=== PATIENT | male | born 1955 | race African-American/Black ===

== ENCOUNTER 2016-12-17 19:50 | Emergency (ER) | payer OTHER ==
[2016-12-17] MEDS ORDERED: SODIUM CHLORIDE 0.9% 1,000 ML IV STA (20:15)
--- NOTE | 2016-12-17 20:43 | ED ---
Abdominal Pain HPI - General Chief Complaint: Abdominal Pain Stated Complaint: sent by PCP CT on file Time Seen by Provider: 12/17/16 20:15 Source: patient Mode of arrival: ambulatory Limitations: no limitations - History of Present Illness Initial Comments: 61-year-old male patient presents to emergency department today for complaints of left flank pain. Patient was seen at the [facility] earlier today and was sent here for a computed tomography scan due to his symptoms. Patient states that the left flank pain has been present for a week. He states that the pain occasionally radiates down into his lower back and leg. His friends the pain as a dull aching and occasionally sharp pain. Patient states the area is tender. Patient denies any fever, chills, dysuria, hematuria, urinary urgency or frequency. He states he occasionally has a slow stream. He denies any abdominal pain, nausea, vomiting, constipation, or diarrhea. Denies any dark, bloody, or black stools. - Related Data Home Medications Medication Instructions Recorded Confirmed Hbobipojfy-RJS-Sfluhem-Codeine 1 - 2 tab PO Q4H PRN 12/05/14 12/17/16 [Fiorinal w/Cod 86-951-76-30MG] Cholecalciferol [Vitamin D3] 1,000 unit PO HS 12/05/14 12/17/16 Metoprolol Tartrate [Lopressor] 75 mg PO BID 12/05/14 12/17/16 Pentoxifylline [TRENtal] 400 mg PO AC-TID 12/05/14 12/17/16 Quinapril HCl [Accupril] 20 mg PO BID 12/05/14 12/17/16 Zolpidem [Ambien] 10 mg PO HS PRN 12/05/14 12/17/16 Aspirin 81 mg PO HS 03/06/15 12/17/16 Atorvastatin [Lipitor] 20 mg PO HS 03/06/15 12/17/16 Clopidogrel [Plavix] 75 mg PO HS 03/06/15 12/17/16 Escitalopram [Lexapro] 10 mg PO HS 03/06/15 12/17/16 HYDROcodone/APAP 10-325MG [[place] 1 tab PO BID PRN 03/06/15 12/17/16 10-325] Isosorbide Dinitrate 30 mg PO HS 03/06/15 12/17/16 Lisinopril 40 mg PO HS 03/06/15 12/17/16 Melatonin 5 mg PO HS 03/06/15 12/17/16 amLODIPine [Norvasc] 10 mg PO HS 03/06/15 12/17/16 Previous Rx's Medication Instructions Recorded hydrALAZINE HCL [Apresoline] 50 mg PO QID #120 tab 12/08/14 Polyethylene Glycol 3350 [Miralax] 17 gm PO Q72H PRN #1 packet 03/06/15 Allergies Allergy/AdvReac Type Severity Reaction Status Date / Time No Known Allergies Allergy Verified 12/17/16 19:59 Review of Systems ROS Statement: Those systems with pertinent positive or pertinent negative responses have been documented in the HPI. ROS Other: All systems not noted in ROS Statement are negative. Past Medical History Past Medical History: Diabetes Mellitus, Hyperlipidemia, Hypertension, Myocardial Infarction ([place]) Additional Past Medical History / Comment(s): Peripheral vascular disease, renal artery stenosis with previous renal artery stenting, insomnia, headache, coronary artery disease, hyperlipidemia, hypertension, NEUROPATHY Last Myocardial Infarction Date:: 1993 History of Any Multi-Drug Resistant Organisms: None Reported Past Surgical History: Coronary Bypass/CABG, Heart Catheterization Additional Past Surgical History / Comment(s): Previous PTCA of the lower extremity with stenting,LT ILIAC ARTERY STENT 11-12-13. bilateral renal artery stenting, balloon angioplasty of coronary artery, open heart surgery 02/2015 Past Psychological History: Depression Smoking Status: Former smoker Past Alcohol Use History: None Reported Additional Past Alcohol Use History / Comment(s): QUIT SMOKING IN 1996 SMOKED 1 PPD Past Drug Use History: Marijuana - Past Family History Father Family Medical History: CVA/TIA, Myocardial Infarction ([place]) Additional Family Medical History / Comment(s): ANEURYSM Mother Family Medical History: CVA/TIA, Myocardial Infarction ([place]) Sister(s) Family Medical History: Cancer Additional Family Medical History / Comment(s): AT AGE 56 FROM [place] AND A SISTER AGE 55 ANEURYSM, AND SEVERAL SISTERS AND BROTHERS HAD CARDIAC HX(MIS) General Exam Limitations: no limitations General appearance: alert, in no apparent distress Head exam: Present: atraumatic, normocephalic, normal inspection Eye exam: Present: normal appearance, PERRL, EOMI. Absent: scleral icterus, conjunctival injection, periorbital swelling ENT exam: Present: normal exam, mucous membranes moist Neck exam: Present: normal inspection. Absent: tenderness, meningismus, lymphadenopathy Respiratory exam: Present: normal lung sounds bilaterally. Absent: respiratory distress, wheezes, rales, rhonchi, stridor Cardiovascular Exam: Present: regular rate, normal rhythm, normal heart sounds. Absent: systolic murmur, diastolic murmur, rubs, gallop, clicks GI/Abdominal exam: Present: soft, normal bowel sounds. Absent: distended, tenderness, guarding, rebound, rigid Back exam: Present: normal inspection, CVA tenderness (L). Absent: CVA tenderness (R) Neurological exam: Present: alert, oriented X3, CN II-XII intact Psychiatric exam: Present: normal affect, normal mood Skin exam: Present: warm, dry, intact, normal color. Absent: rash Course Vital Signs 12/17/16 12/17/16 19:57 21:58 Temperature 98.2 F 97.9 F Pulse Rate 58 L 60 Respiratory 20 18 Rate Blood Pressure 190/83 145/74 O2 Sat by Pulse 97 98 Oximetry Medical Decision Making - Medical Decision Making 61-year-old male presented emergency from for left flank pain after CT. Patient has some area of edematous changes though there is no clear evidence of infection. Patient will follow-up with the urologist. Patient states he has had a stent in the past but not sure what kidney. Patient kidney function is baseline for him. Patient will be discharged at this time with follow-up with Dr. Noguera. Patient's pain is better after pain medication. Case discussed with Dr. Sevilla. - Lab Data Result diagrams: 12/17/16 21:48 12/17/16 21:48 Lab Results 12/17/16 12/17/16 12/17/16 Range/Units 21:06 21:48 21:48 WBC 5.8 (3.8-10.6) k/uL RBC 4.85 (4.30-5.90) m/uL Hgb 13.9 (13.0-17.5) gm/dL Hct 43.0 (39.0-53.0) % MCV 88.8 (80.0-100.0) fL MCH 28.7 (25.0-35.0) pg MCHC 32.3 (31.0-37.0) g/dL RDW 15.7 H (11.5-15.5) % Plt Count 219 (150-450) k/uL Neutrophils % 51 % Lymphocytes % 37 % Monocytes % 6 % Eosinophils % 1 % Basophils % 2 % Neutrophils # 3.0 (1.3-7.7) k/uL Lymphocytes # 2.2 (1.0-4.8) k/uL Monocytes # 0.3 (0-1.0) k/uL Eosinophils # 0.1 (0-0.7) k/uL Basophils # 0.1 (0-0.2) k/uL Sodium 138 (137-145) mmol/L Potassium 4.3 (3.5-5.1) mmol/L Chloride 105 (98-107) mmol/L Carbon Dioxide 22 (22-30) mmol/L Anion Gap 11 mmol/L BUN 15 (9-20) mg/dL Creatinine 1.27 H (0.66-1.25) mg/dL Est GFR (MDRD) Af Amer >60 (>60 ml/min/1.73 sqM) Est GFR (MDRD) Non-Af 57 (>60 ml/min/1.73 sqM) Glucose 101 H (74-99) mg/dL Plasma Lactic Acid Mike (0.7-2.0) mmol/L Calcium 9.6 (8.4-10.2) mg/dL Total Bilirubin 0.6 (0.2-1.3) mg/dL AST 20 (17-59) U/L ALT 19 L (21-72) U/L Alkaline Phosphatase 96 (38-126) U/L Total Protein 8.3 H (6.3-8.2) g/dL Albumin 4.5 (3.5-5.0) g/dL Amylase 121 H (30-110) U/L Lipase 281 (23-300) U/L Urine Color Light Yellow Urine Appearance Clear (Clear) Urine pH 6.0 (5.0-8.0) Ur Specific [place] 1.027 (1.001-1.035) Urine Protein Negative (Negative) Urine Glucose (UA) Negative (Negative) Urine Ketones Negative (Negative) Urine Blood Negative (Negative) Urine Nitrite Negative (Negative) Urine Bilirubin Negative (Negative) Urine Urobilinogen <2.0 (<2.0) mg/dL Ur Leukocyte Esterase Negative (Negative) 12/17/16 Range/Units 21:48 WBC (3.8-10.6) k/uL RBC (4.30-5.90) m/uL Hgb (13.0-17.5) gm/dL Hct (39.0-53.0) % MCV (80.0-100.0) fL MCH (25.0-35.0) pg MCHC (31.0-37.0) g/dL RDW (11.5-15.5) % Plt Count (150-450) k/uL Neutrophils % % Lymphocytes % % Monocytes % % Eosinophils % % Basophils % % Neutrophils # (1.3-7.7) k/uL Lymphocytes # (1.0-4.8) k/uL Monocytes # (0-1.0) k/uL Eosinophils # (0-0.7) k/uL Basophils # (0-0.2) k/uL Sodium (137-145) mmol/L Potassium (3.5-5.1) mmol/L Chloride (98-107) mmol/L Carbon Dioxide (22-30) mmol/L Anion Gap mmol/L BUN (9-20) mg/dL Creatinine (0.66-1.25) mg/dL Est GFR (MDRD) Af Amer (>60 ml/min/1.73 sqM) Est GFR (MDRD) Non-Af (>60 ml/min/1.73 sqM) Glucose (74-99) mg/dL Plasma Lactic Acid Mike 1.5 (0.7-2.0) mmol/L Calcium (8.4-10.2) mg/dL Total Bilirubin (0.2-1.3) mg/dL AST (17-59) U/L ALT (21-72) U/L Alkaline Phosphatase (38-126) U/L Total Protein (6.3-8.2) g/dL Albumin (3.5-5.0) g/dL Amylase (30-110) U/L Lipase (23-300) U/L Urine Color Urine Appearance (Clear) Urine pH (5.0-8.0) Ur Specific [place] (1.001-1.035) Urine Protein (Negative) Urine Glucose (UA) (Negative) Urine Ketones (Negative) Urine Blood (Negative) Urine Nitrite (Negative) Urine Bilirubin (Negative) Urine Urobilinogen (<2.0) mg/dL Ur Leukocyte Esterase (Negative) Disposition Clinical Impression: Flank pain Disposition: HOME SELF-CARE Condition: Stable Instructions: Flank Pain (ED) Additional Instructions: Please return to the Emergency Department if symptoms worsen or any other concerns. Referrals: Nav Lopez DO [Primary Care Provider] - 1-2 days Ramesh Krueger MD [STAFF PHYSICIAN] - 1-2 days Time of Disposition: 22:55
[2016-12-17 21:25] LABS: Appearance,Urine Clear (Clear); Bilirubin,Urine Negative (Negative); Glucose,Urine (UA) Negative (Negative); Ketones,Urine Negative (Negative); Leukocyte Esterase,Urine Negative (Negative); Nitrite,Urine Negative (Negative); Protein,Urine Negative (Negative); Specific Gravity,Urine 1.027 (1.001-1.035); UA Billing (MACRO vs. MICRO) CHEM; Urobilinogen,Urine <2.0 mg/dL (<2.0)
[2016-12-17 21:59] VITALS: RESP 18
[2016-12-17 22:02] LABS: Basophils # (A) 0.1 k/uL (0-0.2); Basophils % (A) 2 %; CH 28.2; Eosinophils # (A) 0.1 k/uL (0-0.7); Eosinophils % (A) 1 %; HDW 2.64; HGB 13.9 gm/dL (13.0-17.5); Luc # (Auto) 0.21; Luc % (Auto) 4; Lymphocytes # (A) 2.2 k/uL (1.0-4.8); Lymphocytes % (A) 37 %; MCH 28.7 pg (25.0-35.0); MCHC 32.3 g/dL (31.0-37.0); MCV 88.8 fL (80.0-100.0); Mean Platelet Volume 7.5; Monocytes # (A) 0.3 k/uL (0-1.0); Monocytes % (A) 6 %; Neutrophils % (A) 51 %; RBC 4.85 m/uL (4.30-5.90); RDW 15.7 % (11.5-15.5); WBC 5.8 k/uL (3.8-10.6); WBC (Perox) 5.64
[2016-12-17 22:15] LABS: ALT 19 U/L (21-72); AST 20 U/L (17-59); Alkaline Phosphatase 96 U/L (38-126); Amylase 121 U/L (30-110); Anion Gap 11 mmol/L; Blood Urea Nitrogen 15 mg/dL (9-20); Calcium 9.6 mg/dL (8.4-10.2); Carbon Dioxide 22 mmol/L (22-30); Chloride 105 mmol/L (98-107); Glucose 101 mg/dL (74-99); Non-African American GFR(MDRD) 57 (>60 ml/min/1.73 sqM); Potassium 4.3 mmol/L (3.5-5.1); Sodium 138 mmol/L (137-145); Total Bilirubin 0.6 mg/dL (0.2-1.3); Total Protein 8.3 g/dL (6.3-8.2)
[2016-12-17] MEDS ORDERED: HYDROmorphone 1 MG/ML 1 ML SYRINGE IVP STA (22:33)
[2016-12-17] MEDS ORDERED: ONDANSETRON 4 MG/2 ML VIAL IVP STA (22:33)
[2016-12-17 23:11] VITALS: BP 165/67; PULSE 65; TEMP 98
== END 2016-12-17 23:11 | disposition home or self-care (01) ==
LOC: EC 19:50
DX: R10.9 Unspecified abdominal pain (principal); M54.5 Low back pain; E78.5 Hyperlipidemia, unspecified; I10 Essential (primary) hypertension; I25.2 Old myocardial infarction; I25.10 Atherosclerotic heart disease of native coronary artery without angina pectoris; F41.9 Anxiety disorder, unspecified; Z87.891 Personal history of nicotine dependence; Z79.82 Long term (current) use of aspirin; Z79.01 Long term (current) use of anticoagulants; Z79.899 Other long term (current) drug therapy
CPT/HCPCS: 36415; 80053; 82150; 83605; 83690; 85025; 81003; 87040; 87086; 99284; 96374; 96375; 96361 ×2; J2405; J1170

== ENCOUNTER → 2016-12-17 | Outpatient (CLI) | payer OTHER ==
[2016-12-17 17:39] LABS: Blood Urea Nitrogen 16 mg/dL (9-20); Non-African American GFR(MDRD) 56 (>60 ml/min/1.73 sqM)
--- NOTE | 2016-12-17 19:44 | CT ---
EXAMINATION TYPE: CT abdomen pelvis wo/w con DATE OF EXAM: 12/17/2016 6:57 PM COMPARISON: December 05, 2014 CT HISTORY: Left flank pain x [address] DLP: 2551.00 mGycm. Automated exposure control for dose reduction was used. TECHNIQUE: Helical acquisition of images was performed from the lung bases through the pelvis. CONTRAST: Performed with Oral Contrast and without and with IV Contrast, patient injected with 80 mL of Visipaque 320. FINDINGS: LUNG BASES: No significant abnormality is appreciated. LIVER/GB: No significant abnormality is appreciated. PANCREAS: No significant abnormality is seen. SPLEEN: No significant abnormality is seen. ADRENALS: No significant abnormality is seen. KIDNEYS AND URETERS AND BLADDER: There is a subtle reticulation pattern throughout the left perirenal space with associated mild thickening and indistinctness of the renal fascia including the lateral c onal fascia on the left. There are no focal left kidney findings. There is no left-sided hydronephros is. There is no right-sided hydronephrosis. The right and left ureters are negative. The urinary bladder is negative for acute findings. RETROPERITONEAL ADENOPATHY: None visualized REPRODUCTIVE ORGANS: No significant abnormality is seen PELVIC ADENOPATHY: None visualized. OSSEOUS STRUCTURES: No significant abnormality is seen. BOWEL: No significant abnormality is seen. OTHER: There is diffuse atherosclerotic ossification throughout all visualized arterial anatomy. IMPRESSION: NEGATIVE FOR OBSTRUCTIVE UROPATHY. HOWEVER, MILD NONSPECIFIC LEFT PERIRENAL EDEMATOUS CHANGES SUGGEST S THE CLINICAL DIAGNOSIS OF PYELONEPHRITIS.
== END ==
LOC: RADCTMAIN 16:58
PROVIDERS: ATTEND Physician Assistant Medical
DX: R10.84 Generalized abdominal pain (principal); R60.0 Localized edema
CPT/HCPCS: 82565; 84520; 74178; 36415; Q9967

== ENCOUNTER 2017-03-17 11:42 | Observation (INO) | payer OTHER, MEDICARE ==
[2017-03-17 13:14] LABS: Basophils # (A) 0.1 k/uL (0-0.2); Basophils % (A) 2 %; CH 28.2; CHCM 33.1; Eosinophils # (A) 0.2 k/uL (0-0.7); Eosinophils % (A) 4 %; HCT 38.4 % (39.0-53.0); HDW 2.79; HGB 13.3 gm/dL (13.0-17.5); Luc # (Auto) 0.16; Luc % (Auto) 3; Lymphocytes # (A) 2.2 k/uL (1.0-4.8); Lymphocytes % (A) 41 %; MCH 29.7 pg (25.0-35.0); MCHC 34.6 g/dL (31.0-37.0); MCV 85.8 fL (80.0-100.0); Mean Platelet Volume 7.8; Monocytes # (A) 0.3 k/uL (0-1.0); Monocytes % (A) 5 %; Neutrophils # (A) 2.5 k/uL (1.3-7.7); Neutrophils % (A) 46 %; RBC 4.48 m/uL (4.30-5.90); RDW 15.6 % (11.5-15.5); WBC 5.4 k/uL (3.8-10.6)
[2017-03-17 13:15] LABS: ALT 15 U/L (21-72); AST 19 U/L (17-59); Alkaline Phosphatase 72 U/L (38-126); Anion Gap 8 mmol/L; Blood Urea Nitrogen 22 mg/dL (9-20); Calcium 9.2 mg/dL (8.4-10.2); Carbon Dioxide 27 mmol/L (22-30); Chloride 107 mmol/L (98-107); Glucose 84 mg/dL (74-99); Non-African American GFR(MDRD) 53 (>60 ml/min/1.73 sqM); Sodium 142 mmol/L (137-145); Total Bilirubin 0.4 mg/dL (0.2-1.3); Total Protein 7.5 g/dL (6.3-8.2)
[2017-03-17 13:21] LABS: Potassium 4.3 mmol/L (3.5-5.1)
[2017-03-17 13:24] LABS: INR 1.1 (<1.1); Prothrombin Time 10.7 sec (9.0-12.0)
--- NOTE | 2017-03-17 13:26 | XR ---
EXAMINATION TYPE: XR chest 2V DATE OF EXAM: 03/17/2017 COMPARISON: Chest x-ray March 08, 2015 HISTORY: Chest pain and pain in extremities. TECHNIQUE: Frontal and lateral views of the chest are obtained. FINDINGS: Sternal wires and mediastinal clips are redemonstrated. There is redemonstration of elevate d and eventrated anterior limb right hemidiaphragm. There is no focal air space opacity, pleural eff usion, or pneumothorax seen. The cardiac silhouette size is upper limits of normal with atherosclero tic thoracic aorta. The osseous structures are intact. IMPRESSION: No acute process.
[2017-03-17 13:33] LABS: Partial Thromboplastin Time 20.9 sec (22.0-30.0)
[2017-03-17] MEDS ORDERED: HYDROcodone/APAP 5-325MG 1 EACH TAB PO STA ×2 (13:42→16:56)
[2017-03-17 13:53] LABS: Troponin I 0.03 ng/mL (0.000-0.034)
[2017-03-17] MEDS ORDERED: ASPIRIN 325 MG TAB PO STA (16:49)
[2017-03-17] MEDS ORDERED: RX INFO: IV CONTRAST WAS GIVEN 1 EACH MISC MISCELLANE PRN (16:50)
[2017-03-17] MEDS ORDERED: SODIUM CHLORIDE 0.9% 1,000 ML IV ONE (16:51)
[2017-03-17] MEDS ORDERED: hydrALAZINE HCL 20 MG/ML 1 ML VIAL IVP STA (16:52)
--- NOTE | 2017-03-17 19:32 | CT ---
EXAMINATION TYPE: CT angio thoracic/abd aorta and with 3-D Reconstruction rendering at an independent workstation DATE OF EXAM: 03/17/2017 COMPARISON: December 05, 2014 CT HISTORY: Chest Pain CT DLP: 1132 mGycm. Automated Exposure Control for Dose Reduction was Utilized. CONTRAST: CT scan of the thorax, abdomen and pelvis is performed; patient injected with 80 mL of Visi paque 320. Multiple three-dimensional volume rendered rectal abdominal pelvic aortic images were obta ined and reviewed. FINDINGS: LUNGS: The lungs are grossly clear, there is no concerning parenchymal mass or nodule identified. T here is no pleural effusion or pneumothorax seen. The tracheobronchial tree is patent. MEDIASTINUM: The thoracic aorta is unremarkable on the precontrast and postcontrast sequences, other than stable appearing advanced atherosclerotic changes including intimal calcifications and minimal t ortuosity. 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 M ild cardiomegaly noted. Pericardial spaces negative. Post coronary arterial bypass surgical changes a ppreciated. [place] coronary calcifications are prominent. Bypass grafts cannot be well-visualized wit h the motion artifact. There are no greater than 1 cm hilar or mediastinal lymph nodes. The pulmonary arterial tree is widely patent. LIVER/GB: No significant abnormality is appreciated. PANCREAS: No significant abnormality is seen. SPLEEN: No significant abnormality is seen. ADRENALS: No significant abnormality is seen. KIDNEYS: No acute abnormality is seen, but the left kidney shows generalized atrophy and is nearly 1/ 2 the volume of the right kidney. BOWEL: Diverticulosis noted, but no acute findings. GENITAL ORGANS: No gross abnormality seen. LYMPH NODES: No greater than 1cm abdominal or pelvic lymph nodes are appreciated. OSSEOUS STRUCTURES: No significant abnormality is seen. OTHER: Widespread advanced atherosclerotic changes seen throughout the arterial anatomy of the abdome n and pelvis. No acute findings. IMPRESSION: NO ACUTE PROCESS, CHEST ABDOMEN PELVIS CTA WITHOUT AND WITH CONTRAST AND WITH 3-D RECONSTRUCTION ANTWON MARTINS
[2017-03-17] MEDS ORDERED: MORPHINE SULFATE 4 MG/ML SYRINGE IV PRN (19:34)
[2017-03-17] MEDS ORDERED: HYDROcodone/APAP 5-325MG 1 EACH TAB PO PRN (19:34)
[2017-03-17] MEDS ORDERED: NALOXONE 0.4 MG/ML 1 ML VIAL IV PRN (19:34)
[2017-03-17] MEDS ORDERED: ONDANSETRON 4 MG/2 ML VIAL IVP PRN (19:34)
[2017-03-17] MEDS ORDERED: DEXTROSE 5%-0.45% NACL 1,000 ML IV SCH (19:45)
--- NOTE | 2017-03-17 19:48 | ED ---
Chest Pain HPI - General Chief Complaint: Chest Pain Stated Complaint: chest pain/arms and legs Time Seen by Provider: 03/17/17 12:09 Source: patient, RN notes reviewed Mode of arrival: ambulatory Limitations: no limitations - History of Present Illness Initial Comments: 61-year-old male presenting with chief complaint of chest pain. Patient describes the pain is heavy in nature. Pain is currently resolved. It was nonradiating. Not associated with nausea or diaphoresis. Patient does have past medical history of CAD and peripheral vascular disease. Coronary artery bypass graft in February 2015. Patient has history of diabetes. He normally follows at the [facility]. He thinks his last stress test was approximately one year ago. He is uncertain of the results of this test. He denies fever, denies cough. Denies nausea vomiting or diarrhea. - Related Data Home Medications Medication Instructions Recorded Confirmed Uwbumczdfh-SYB-Pqjzpov-Codeine 1 - 2 tab PO Q4H PRN 12/05/14 03/17/17 [Fiorinal w/Cod 06-768-62-30MG] Cholecalciferol [Vitamin D3] 1,000 unit PO HS 12/05/14 03/17/17 Pentoxifylline [TRENtal] 400 mg PO TID 12/05/14 03/17/17 Aspirin 81 mg PO HS 03/06/15 03/17/17 Clopidogrel [Plavix] 75 mg PO HS 03/06/15 03/17/17 Docusate [Colace] 100 mg PO BID PRN 03/17/17 03/17/17 Ferrous Sulfate [Iron] 325 mg PO DAILY 03/17/17 03/17/17 Gabapentin [Neurontin] 300 mg PO TID 03/17/17 03/17/17 Lisinopril [Zestril] 10 mg PO HS 03/17/17 03/17/17 Lisinopril [Zestril] 20 mg PO DAILY 03/17/17 03/17/17 Metoprolol Succinate (ER) [Toprol 50 mg PO DAILY 03/17/17 03/17/17 Xl] PARoxetine HCL [Paxil] 40 mg PO DAILY 03/17/17 03/17/17 Pantoprazole Sodium [Protonix] 40 mg PO DAILY 03/17/17 03/17/17 Sildenafil Citrate [Viagra] 100 mg PO ONCE PRN 03/17/17 03/17/17 Tamsulosin HCl [Flomax] 0.4 mg PO DAILY 03/17/17 03/17/17 hydrALAZINE HCL [Apresoline] 25 mg PO TID 03/17/17 03/17/17 traZODone HCL [Desyrel] 50 mg PO HS 03/17/17 03/17/17 Allergies Allergy/AdvReac Type Severity Reaction Status Date / Time No Known Allergies Allergy Verified 03/17/17 13:26 Review of Systems ROS Statement: Those systems with pertinent positive or pertinent negative responses have been documented in the HPI. ROS Other: All systems not noted in ROS Statement are negative. EKG Findings - EKG Comments: EKG Findings:: EKG shows sinus bradycardia with a ventricular 59. 180, QRS duration 102, QTC is 429, there is no ST segment elevation or depression, no T- wave abnormality. Past Medical History Past Medical History: Diabetes Mellitus, Hyperlipidemia, Hypertension, Myocardial Infarction ([place]) Additional Past Medical History / Comment(s): Peripheral vascular disease, renal artery stenosis with previous renal artery stenting, insomnia, headache, coronary artery disease, hyperlipidemia, hypertension, NEUROPATHY Last Myocardial Infarction Date:: 1993 History of Any Multi-Drug Resistant Organisms: None Reported Past Surgical History: Coronary Bypass/CABG, Heart Catheterization Additional Past Surgical History / Comment(s): Previous PTCA of the lower extremity with stenting,LT ILIAC ARTERY STENT 11-12-. bilateral renal artery stenting, balloon angioplasty of coronary artery, open heart surgery 02/2015 Past Psychological History: Depression Smoking Status: Former smoker Past Alcohol Use History: None Reported Past Drug Use History: Marijuana - Past Family History Father Family Medical History: CVA/TIA, Myocardial Infarction ([place]) Additional Family Medical History / Comment(s): ANEURYSM Mother Family Medical History: CVA/TIA, Myocardial Infarction ([place]) Sister(s) Family Medical History: Cancer Additional Family Medical History / Comment(s): AT AGE 56 FROM [place] AND A SISTER AGE 55 ANEURYSM, AND SEVERAL SISTERS AND BROTHERS HAD CARDIAC HX(MIS) General Exam Limitations: no limitations General appearance: alert, in no apparent distress Head exam: Present: atraumatic, normocephalic Eye exam: Present: normal appearance, PERRL ENT exam: Present: normal exam, mucous membranes moist Neck exam: Present: normal inspection, full ROM Respiratory exam: Present: normal lung sounds bilaterally. Absent: respiratory distress, wheezes Cardiovascular Exam: Present: regular rate, normal rhythm GI/Abdominal exam: Present: soft. Absent: distended, tenderness Extremities exam: Present: normal capillary refill. Absent: pedal edema Back exam: Present: normal inspection Neurological exam: Present: alert, oriented X3 Psychiatric exam: Present: normal affect, normal mood Skin exam: Present: warm, dry Course Vital Signs 03/17/17 03/17/17 03/17/17 11:50 13:18 14:04 Temperature 98.6 F 97.9 F Pulse Rate 61 50 L 52 L Respiratory 20 18 16 Rate Blood Pressure 201/86 167/78 190/89 O2 Sat by Pulse 99 100 100 Oximetry 03/17/17 19:36 Temperature Pulse Rate 51 L Respiratory 16 Rate Blood Pressure 134/64 O2 Sat by Pulse 98 Oximetry - Reevaluation(s) Reevaluation #1: 03/17/17 19:45 Patient reevaluated remains chest pain-free. He does have some chronic bilateral lower extremity pain. Takes [place] at home. CT angiography is negative for any acute findings. Chest Pain MDM - [facility] 60-year-old male presenting with chest pain which is resolved at the time of evaluation. Patient has had chest pain on and off he is seeking evaluation at this hospital as he is not comfortable with his medical care at the [place]. His EKG is unremarkable. Chest x-ray shows no acute findings. D-dimer is elevated and CT angiography is obtained of the thorax and abdomen given his history of peripheral vascular disease and atypical chest pain. This is negative for dissection or aneurysm. Laboratory studies including cardiac enzymes are unremarkable. Patient's blood pressure pressure is elevated, he is given 10 mg of IV hydralazine and started on his home medications. Chest pain may be related to hypertension. Patient will be admitted for cardiology evaluation and blood pressure control. Disposition Clinical Impression: Chest pain Disposition: ADMITTED IP TO THIS [facility] Condition: Stable Referrals: Nav Lopez DO [Primary Care Provider] - 1-2 days Decision to Admit Reason: Admit from [facility] Decision Date: 03/17/17 Decision Time: 19:48
[2017-03-17] MEDS ORDERED: LISINOPRIL 10 MG TAB PO SCH (21:00)
[2017-03-17] MEDS ORDERED: CLOPIDOGREL 75 MG TAB PO SCH (21:00)
[2017-03-17] MEDS: PENTOXIFYLLINE 400 MG TABLET.ER PO SCH (22:59)
[2017-03-17] MEDS: hydrALAZINE HCL 25 MG TAB PO SCH (22:59)
[2017-03-17] MEDS ORDERED: DOCUSATE 100 MG CAP PO PRN (23:07)
[2017-03-17] MEDS ORDERED: traZODone HCL 50 MG TAB PO SCH (23:30)
[2017-03-17 23:57] LABS: Troponin I 0.02 ng/mL (0.000-0.034)
[2017-03-18] MEDS: GABAPENTIN 300 MG CAP PO SCH ×2 (00:56→09:06)
[2017-03-18 04:40] LABS: Basophils # (A) 0.1 k/uL (0-0.2); Basophils % (A) 1 %; CH 28.1; CHCM 33.5; Eosinophils # (A) 0.2 k/uL (0-0.7); Eosinophils % (A) 3 %; HCT 39.1 % (39.0-53.0); HDW 2.81; HGB 13.1 gm/dL (13.0-17.5); Luc # (Auto) 0.12; Luc % (Auto) 2; Lymphocytes # (A) 1.7 k/uL (1.0-4.8); Lymphocytes % (A) 36 %; MCH 28.3 pg (25.0-35.0); MCHC 33.5 g/dL (31.0-37.0); MCV 84.4 fL (80.0-100.0); Mean Platelet Volume 7.7; Monocytes # (A) 0.3 k/uL (0-1.0); Monocytes % (A) 6 %; Neutrophils # (A) 2.5 k/uL (1.3-7.7); Neutrophils % (A) 52 %; RBC 4.64 m/uL (4.30-5.90); RDW 15.5 % (11.5-15.5); WBC 4.9 k/uL (3.8-10.6); WBC (Perox) 4.67
[2017-03-18 04:57] LABS: Anion Gap 10 mmol/L; Blood Urea Nitrogen 19 mg/dL (9-20); Carbon Dioxide 22 mmol/L (22-30); Chloride 110 mmol/L (98-107); Glucose 100 mg/dL (74-99); Non-African American GFR(MDRD) >60 (>60 ml/min/1.73 sqM); Potassium 4.1 mmol/L (3.5-5.1); Sodium 142 mmol/L (137-145)
[2017-03-18 05:27] LABS: Creatine Kinase MB 0.9 ng/mL (0.0-2.4); Troponin I 0.013 ng/mL (0.000-0.034)
[2017-03-18] MEDS ORDERED: PANTOPRAZOLE 40 MG TABLET PO SCH (07:30)
[2017-03-18] MEDS ORDERED: DOCUSATE 100 MG CAP PO SCH (09:00)
[2017-03-18] MEDS ORDERED: METOPROLOL SUCCINATE (ER) 50 MG TAB.ER.24H PO SCH (09:00)
[2017-03-18] MEDS ORDERED: FERROUS SULFATE 325 MG TAB PO SCH (09:00)
[2017-03-18] MEDS ORDERED: TAMSULOSIN 0.4 MG CAP.ER.24H PO SCH (09:00)
[2017-03-18] MEDS ORDERED: PARoxetine 20 MG TAB PO SCH (09:00)
[2017-03-18] MEDS: PENTOXIFYLLINE 400 MG TABLET.ER PO SCH (09:06)
[2017-03-18] MEDS: hydrALAZINE HCL 25 MG TAB PO SCH (09:06)
[2017-03-18 12:08] VITALS: BP 174/82; PULSE 67; RESP 16; TEMP 98.1
--- NOTE | 2017-03-18 15:29 | CONS ---
Michael Woodward is a 61 year old gentleman who is well known to me. He has history of hypertension, peripheral arterial disease, CAD, previous bypass surgery in 2015, known ischemic cardiomyopathy with ejection fraction in the range of 45%. He has had prior inferior NC. I performed intervention of the circumflex in the past, later on he underwent aortocoronary bypass surgery in 2015 in [place] and has his healthcare in [place]. He came in yesterday to the hospital with an episode of what he describes as pain in the right shoulder and also somewhat across the chest. The quality of the pain was very atypical, underwent from his right shoulder to the left anterior chest. He has no further pain. Troponins are normal. CT scan of the aorta was unremarkable. He is resting comfortably without symptoms. He wishes to go home and have his health care through the [facility]. He has history of prior NC, PCI and bypass surgery. He is asymptomatic at the time of my evaluation. PAST MEDICAL HISTORY: 1. Hypertension. 2. History of NC and PCI of circumflex followed by aortocoronary bypass surgery in 2014. 3. He has peripheral artery disease, renal artery stenosis as well as intervention of the peripheral arteries percutaneously. MEDICATIONS: At home include: 1. Lisinopril 30 mg daily. 2. Metoprolol succinate 50 mg daily. 3. Paxil 40 mg daily. 4. He is not on any statin agent. 5. Hydralazine 25 mg t.i.d. 6. Aspirin 81 mg daily. 7. Plavix 75 mg daily. 8. Iron supplements. On examination, blood pressure 130/70. Pulse rate is 70 per minute and regular. HEENT unremarkable. Fundus was not examined by me. Neck is supple. There is a soft bruit bilaterally in carotids. Heart exam reveals S1, S2 with a short systolic murmur. Lungs reveal decent air entry. Abdomen is soft, nontender. Lower extremities reveals diminished pulses. Central nervous system grossly no focal deficits. LABORATORY DATA: Revealed unremarkable troponins. D. dimer was elevated and CT scan of the chest with contrast revealed no aortic pathology and no evidence of any pulmonary embolism and his pulmonary arterial tree was widely patent. IMPRESSION: 1. Chest pain syndrome, seems atypical but the patient was history of CAD with previous bypass surgery. 2. Hypertension. 3. Peripheral arterial disease. 4. History of previous myocardial infarction and PCI. RECOMMENDATIONS: The patient's pain has resolved. Troponins are normal. Aortic CT scan is unremarkable. I am recommending he could be discharged with a clear understanding that he should have a stress test and [facility] He has a behavioral health rn who he will call immediately. The patient can be discharged on the current medical regimen. I am adding Atorvastatin 40 mg daily to his regimen and advised not to do strenuous activity until stress test is performed. Thank you very much for the consult. KATHY
--- NOTE | 2017-03-18 16:40 | P.HPIM ---
History of Present Illness H&P Date: 03/18/17 (Discharge summary as well) This is a 61-year-old female with previous history of CAD, PAD comes in the hospital with right shoulder pain for the last 2-3 days Patient states that the pain has been constant no alleviating or exacerbating factors however patient underwent a bypass 2 years ago at which time patient had a similar type of ache in his left shoulder hence came to the hospital for concern for coronary disease. Patient sees Dr. LEAH Felder in time however is also evaluated [facility] In [facility] emergency room EKG did not note significant change from previous EKG Cardiac enzymes 3 were negative Patient at the time of my evaluation denies having any chest pain dizziness difficulty breathing nausea vomiting diarrhea urinary urgency or frequency Patient states that he has chronic left lower x-ray pain for which she has known peripheral vascular disease and he is slated to undergo an intervention in the next 4-6 weeks by a physician at the [facility] Patient's blood pressure was slightly elevated however is controlled at this time Review of Systems All systems: negative (Noted in HPI) Past Medical History Past Medical History: Coronary Artery Disease (CAD), Chest Pain / Angina, Hyperlipidemia, Hypertension, Myocardial Infarction ([place]) Additional Past Medical History / Comment(s): Peripheral vascular disease, renal artery stenosis with previous renal artery stenting, insomnia, headache, coronary artery disease, hyperlipidemia, hypertension, NEUROPATHY Last Myocardial Infarction Date:: 2014 History of Any Multi-Drug Resistant Organisms: None Reported Past Surgical History: Coronary Bypass/CABG, Heart Catheterization Additional Past Surgical History / Comment(s): Previous PTCA of the lower extremity with stenting,LT ILIAC ARTERY STENT 11-12-13. bilateral renal artery stenting, balloon angioplasty of coronary artery, open heart surgery 02/2015 Past Anesthesia/Blood Transfusion Reactions: No Reported Reaction Past Psychological History: Anxiety, Depression Smoking Status: Former smoker - Past Family History Brother(s) Family Medical History: Coronary Artery Disease (CAD), Diabetes Mellitus, Myocardial Infarction ([place]) Father Family Medical History: CVA/TIA, Myocardial Infarction ([place]) Additional Family Medical History / Comment(s): ANEURYSM Mother Family Medical History: CVA/TIA, Myocardial Infarction ([place]) Sister(s) Family Medical History: Cancer Additional Family Medical History / Comment(s): AT AGE 56 FROM [place] AND A SISTER AGE 55 ANEURYSM, AND SEVERAL SISTERS AND BROTHERS HAD CARDIAC HX(MIS) Medications and Allergies Home Medications Medication Instructions Recorded Confirmed Type Lobtmewzap-RAM-Zflauoe-Codeine 1 - 2 tab PO Q4H PRN 12/05/14 03/17/17 History [Fiorinal w/Cod 41-490-68-30MG] Cholecalciferol [Vitamin D3] 1,000 unit PO HS 12/05/14 03/17/17 History Pentoxifylline [TRENtal] 400 mg PO TID 12/05/14 03/17/17 History Aspirin 81 mg PO HS 03/06/15 03/17/17 History Clopidogrel [Plavix] 75 mg PO HS 03/06/15 03/17/17 History Docusate [Colace] 100 mg PO BID PRN 03/17/17 03/17/17 History Ferrous Sulfate [Iron] 325 mg PO DAILY 03/17/17 03/17/17 History Gabapentin [Neurontin] 300 mg PO TID 03/17/17 03/17/17 History Lisinopril [Zestril] 10 mg PO HS 03/17/17 03/17/17 History Lisinopril [Zestril] 20 mg PO DAILY 03/17/17 03/17/17 History Metoprolol Succinate (ER) [Toprol 50 mg PO DAILY 03/17/17 03/17/17 History XL] PARoxetine HCL [Paxil] 40 mg PO DAILY 03/17/17 03/17/17 History Pantoprazole Sodium [Protonix] 40 mg PO DAILY 03/17/17 03/17/17 History Sildenafil Citrate [Viagra] 100 mg PO ONCE PRN 03/17/17 03/17/17 History Tamsulosin HCl [Flomax] 0.4 mg PO DAILY 03/17/17 03/17/17 History hydrALAZINE HCL [Apresoline] 25 mg PO TID 03/17/17 03/17/17 History traZODone HCL [Desyrel] 50 mg PO HS 03/17/17 03/17/17 History Atorvastatin [Lipitor] 40 mg PO DAILY 03/18/17 03/18/17 History Allergies Allergy/AdvReac Type Severity Reaction Status Date / Time No Known Allergies Allergy Verified 03/17/17 22:52 Physical Exam Vitals: Vital Signs Temp Pulse Pulse Pulse Resp BP BP 03/18/17 12:00 98.1 F 67 16 174/82 03/18/17 08:00 97.7 F 71 18 137/76 03/18/17 03:52 18 03/18/17 03:39 97.9 F 71 18 121/72 03/18/17 00:00 97.9 F 63 18 132/67 03/17/17 20:45 98 F 57 L 18 160/77 03/17/17 19:36 51 L 16 134/64 Pulse Ox 03/18/17 12:00 98 03/18/17 08:00 98 03/18/17 03:52 03/18/17 03:39 100 03/18/17 00:00 99 03/17/17 20:45 99 03/17/17 19:36 98 Intake and Output 03/18/17 03/18/17 03/18/17 06:59 14:59 22:59 Other: # Voids 600 Physical exam Gen. appearance oriented 3 in no distress Neck is supple no JVD Lungs good air entry clear to auscultation no rhonchi or wheezing Heart S1-S2 heard regular rate and rhythm no murmurs appreciated Abdomen is soft nontender no organomegaly bowel sounds are intact Neurologically cranial nerves II-12 grossly intact no focal motor or sensory deficits noted Skin no abnormalities appreciated Results CBC & Chem 7: 03/18/17 03:49 03/18/17 03:49 Labs: Abnormal Lab Results - Last 24 Hours (Table) 03/18/17 Range/Units 03:49 Chloride 110 H (98-107) mmol/L Glucose 100 H (74-99) mg/dL Thrombosis Risk Factor Assmnt - Choose All That Apply Each Factor Represents 1 point: Obesity (BMI >25) Other Risk Factors: Yes Each Risk Factor Represents 2 Points: Age 61-74 years Each Risk Factor Represents 3 Points: Family history of DVT/PE Other congenital or acquired thrombophilia - If yes, enter type in comment: No Thrombosis Risk Factor Assessment Total Risk Factor Score: 6 Thrombosis Risk Factor Assessment Level: High Risk Assessment and Plan Plan: #1 atypical chest pain, ACS is ruled out patient is symptom-free at discharge #2 PAD status post previous intervention #3 CAD status post CABG and previous PCI/PTCA #4 essential hypertension. #5 erectile disorder #6 history of reactive airway disease #7 dyslipidemia #8 min D insufficiency #9 BPH Plan Patient is symptom-free cardiac enzymes 3 were negative Patient is recommended to undergo a stress test on outpatient basis No reproducibility of pain on range of motion at the right shoulder and pain is resolved
[2017-03-18] MEDS ORDERED: ASPIRIN 81 MG CHEW PO SCH (21:00)
== END 2017-03-18 12:50 | disposition home or self-care (01) ==
LOC: EC 11:42 → 3OBS 19:34
PROVIDERS: ADMIT Hospitalist; ATTEND Hospitalist
DX: R07.89 Other chest pain (principal); I25.10 Atherosclerotic heart disease of native coronary artery without angina pectoris; I73.9 Peripheral vascular disease, unspecified; R00.1 Bradycardia, unspecified; F32.9 Major depressive disorder, single episode, unspecified; E78.5 Hyperlipidemia, unspecified; I10 Essential (primary) hypertension; I70.1 Atherosclerosis of renal artery; G62.9 Polyneuropathy, unspecified; G47.00 Insomnia, unspecified; I25.5 Ischemic cardiomyopathy; I25.2 Old myocardial infarction; M25.511 Pain in right shoulder; F41.9 Anxiety disorder, unspecified; Z95.1 Presence of aortocoronary bypass graft; N52.9 Male erectile dysfunction, unspecified; N40.0 Benign prostatic hyperplasia without lower urinary tract symptoms; E55.9 Vitamin D deficiency, unspecified; J45.909 Unspecified asthma, uncomplicated; Z82.49 Family history of ischemic heart disease and other diseases of the circulatory system; Z95.5 Presence of coronary angioplasty implant and graft; Z83.3 Family history of diabetes mellitus; Z79.899 Other long term (current) drug therapy; Z79.82 Long term (current) use of aspirin; Z79.02 Long term (current) use of antithrombotics/antiplatelets; Z87.891 Personal history of nicotine dependence
CPT/HCPCS: 36415; 71020; 71275; 75635; 80048; 80053; 82550; 82553; 83690; 83735; 83880; 84484; 85025; 85379; 85610; 85730; 93005; 96361; 96374; 99285

== ENCOUNTER → 2017-05-23 | Outpatient (CLI) | payer OTHER ==
--- NOTE | 2017-05-23 11:40 | NM ---
EXAMINATION TYPE: NM stress cardiolite complete DATE OF EXAM: 05/23/2017 COMPARISON: NONE HISTORY: Chest pain TECHNIQUE: After the intravenous administration of 10.49 mCi Tc 99m Sestamibi - Rest images obtained 45 minutes post injection. The patient exercised using a DOROTHY protocol and 1 minute prior to peak exercise was injected with 26.9 mCi Tc 99m Sestamibi - Stress images obtained 15 minutes post inject ion. FINDINGS: There is dyskinesia of the inferior septal wall. There may be some global hypokinesia. Ejection fract ion of 46% is somewhat low. Normal is greater than 50%. No fixed or reversible perfusion defects are identified. IMPRESSION: Stress-induced ischemic changes not identified. 2. Abnormal wall motion with some dyskinesia of the inferior septal wall region. Ejection fraction is low 46%.
--- NOTE | 2017-05-23 13:24 | EST ---
EXERCISE STRESS DATE OF SERVICE: 05/23/2017 AGE: 61 SEX: Male HT: 67" WT: 173 pounds PROTOCOL: Cardiolite, Drake. STAGE: II DURATION OF EXERCISE: 4:40 HEART RATE REST: 61 BLOOD PRESSURE REST: 133/88 MAXIMUM HEART RATE ACHIEVED: 141 MAXIMUM BLOOD PRESSURE: 213/82 85% MPHR: 133 100% MPHR: 157 METS: 6.4 INDICATIONS: Chest pain. Baseline EKG revealed a sinus mechanism with inferolateral nonspecific ST abnormality and also evidence of isolated PVCs baseline. Patient walked on a standard Drake protocol for 4 minutes 40 seconds and achieved a maximum heart rate of 141 beats per minute. Developed fatigue and shortness of breath. He had hypertensive response to exercise with a peak pressure of 213/82. EKG remained inconclusive. There was no angina or arrhythmia. By EKG, this is an inconclusive stress test with limited exercise excess capacity and hypertensive response to exercise. The nuclear scan results, which are more pertinent, will be reported by the radiologist. MMODL / IJN: [id number] /
== END | disposition home or self-care (01) ==
LOC: RADNMMAIN 07:47
PROVIDERS: ATTEND Family Medicine
DX: R07.89 Other chest pain (principal)
CPT/HCPCS: 93017; 78452; A9500

== ENCOUNTER → 2017-12-09 | Outpatient (CLI) | payer OTHER ==
--- NOTE | 2017-12-09 10:52 | US ---
EXAMINATION TYPE: US kidneys/renal and bladder DATE OF EXAM: 12/09/2017 COMPARISON: US, CT CLINICAL HISTORY: N18.2 Chronic kidney disease stage II. Left renal artery stents x [address] Soto per patient. EXAM MEASUREMENTS: Right Kidney: 9.6 x 6.3 x 5.0 cm Left Kidney: 6.9 x 4.0 x 3.7 cm Post Void Residual Volume: 5.9 mL Right Kidney: No hydronephrosis seen; medial mid vessel wall calcification is noted as parallel hyper echoic focus; color flow is noted to periphery. Left Kidney: lobular cortex; color flow is noted to mid lower pole periphery on image #[id number]. Bladder: wnl, but not fully distended Bilateral Jets seen: no, only right ureteral jet was seen after 3 minute observation Normal Post Void Residual: Yes IMPRESSION: No cortical renal thinning, hydronephrosis, nephrolithiasis or focal renal mass. Perfusion is seen to both kidneys symmetrically.
== END | disposition home or self-care (01) ==
LOC: RADUSWWP 09:38
PROVIDERS: ATTEND Internal Medicine Nephrology
DX: N18.2 Chronic kidney disease, stage 2 (mild) (principal)
CPT/HCPCS: 76770

== ENCOUNTER 2019-09-27 10:30 | Day surgery (SDC) | payer MEDICARE, OTHER ==
[2019-09-27 10:53] VITALS: TEMP 97.7
[2019-09-27] MEDS ORDERED: LACTATED RINGERS 1,000 ML IV SCH (10:53)
[2019-09-27] MEDS ORDERED: LIDOCAINE 1% (10MG/ML) FOR IV START INTRADERMA PRN (10:53)
[2019-09-27] MEDS ORDERED: GLYCOPYRROLATE 0.2 MG/ML 2 ML VIAL ONE (11:13)
[2019-09-27] MEDS ORDERED: PROPOFOL 10 MG/ML 20 ML VIAL IV ONE (11:13)
[2019-09-27] MEDS ORDERED: LIDOCAINE 1% INJ 10MG/ML (20 ML MDV) ONE (11:13)
--- NOTE | 2019-09-27 11:45 | P.PCN ---
Date of Procedure: 09/27/19 Description of Procedure: BRIEF HISTORY: Patient is a 63-year-old pleasant male scheduled for an elective colonoscopy as a part of personal history of colon polyps. Denies any change in bowel habits or blood per rectum or abdominal pain. Last colonoscopy approximately 7 years ago per his recollection. Does report colon polyps in the past. PROCEDURE PERFORMED: Colonoscopy. PREOPERATIVE DIAGNOSIS: History of colon polyps, last colonoscopy approximately 7 years ago per his recollection. ESTIMATED BLOOD LOSS: Minimal. IV sedation per Anesthesia. PROCEDURE: After informed consent was obtained, the patient, was brought into the endoscopy unit. IV sedation was administered by Anesthesia under continuous monitoring. Digital rectal examination was normal. Initially the Olympus CF-190 flexible video colonoscope was then inserted in the rectum, gradually advanced into the cecum without any difficulty. Careful examination was performed as the scope was gradually being withdrawn. Ileocecal valve and the appendiceal orifice were visualized and appeared normal. Prep was excellent. Mucosa of the cecum, ascending colon, transverse colon, descending colon, sigmoid colon, and rectum appeared normal. Retroflexion was performed in the rectum and no lesions were seen, low-grade internal hemorrhoids noted. The patient tolerated the procedure well. IMPRESSION: Normal-appearing colon from rectum to cecum. Low-grade internal hemorrhoids noted. RECOMMENDATIONS: Findings of this examination were discussed with the patient. Okay to resume diet. Okay to resume medications. Would recommend repeat colonoscopy in 5 years given patient's history of colon polyps.
[2019-09-27 11:51] VITALS: RESP 16
[2019-09-27 12:07] VITALS: BP 179/89; PULSE 96
== END 2019-09-27 12:39 | disposition home or self-care (01) ==
LOC: ORWHC2ENDO 10:30
PROVIDERS: ATTEND Internal Medicine
DX: Z12.11 Encounter for screening for malignant neoplasm of colon (principal); K64.8 Other hemorrhoids; Z86.010 Personal history of colon polyps; I25.10 Atherosclerotic heart disease of native coronary artery without angina pectoris; I10 Essential (primary) hypertension; I25.2 Old myocardial infarction; I73.9 Peripheral vascular disease, unspecified; I70.1 Atherosclerosis of renal artery; E78.5 Hyperlipidemia, unspecified; G62.9 Polyneuropathy, unspecified; F41.9 Anxiety disorder, unspecified; F32.9 Major depressive disorder, single episode, unspecified; Z79.82 Long term (current) use of aspirin; Z79.02 Long term (current) use of antithrombotics/antiplatelets; Z79.899 Other long term (current) drug therapy; Z98.890 Other specified postprocedural states; Z87.891 Personal history of nicotine dependence; Z95.1 Presence of aortocoronary bypass graft; Z98.62 Peripheral vascular angioplasty status
CPT/HCPCS: G0121; J2001; J2704; 45378

== ENCOUNTER 2021-03-01 14:09 | Emergency (ER) | payer MEDICARE, OTHER ==
[2021-03-01 14:48] VITALS: BP 138/62; PULSE 51; RESP 20; TEMP 97.8
[2021-03-01] MEDS ORDERED: ASPIRIN 81 MG PO STA (15:55)
[2021-03-01 16:35] LABS: Basophils # (A) 0.1 k/uL (0-0.2); Basophils % (A) 1 %; Eosinophils # (A) 0.2 k/uL (0-0.7); Eosinophils % (A) 4 %; HCT 38.8 % (39.0-53.0); HGB 13.3 gm/dL (13.0-17.5); Lymphocytes # (A) 1.9 k/uL (1.0-4.8); Lymphocytes % (A) 34 %; MCHC 34.4 g/dL (31.0-37.0); MCV 87.3 fL (80.0-100.0); Mean Platelet Volume 8.1; Monocytes # (A) 0.3 k/uL (0-1.0); Monocytes % (A) 5 %; Neutrophils % (A) 55 %; Platelet Count 173 k/uL (150-450); RBC 4.44 m/uL (4.30-5.90); RDW 15.3 % (11.5-15.5); WBC 5.4 k/uL (3.8-10.6)
[2021-03-01 16:36] LABS: Appearance,Urine Clear (Clear); Bilirubin,Urine Negative (Negative); Blood,Urine Negative (Negative); Color,Urine Yellow; Glucose,Urine (UA) Negative (Negative); Ketones,Urine Negative (Negative); Leukocyte Esterase,Urine Negative (Negative); Nitrite,Urine Negative (Negative); Protein,Urine Negative (Negative); Specific Gravity,Urine 1.017 (1.001-1.035); Urobilinogen,Urine <2.0 mg/dL (<2.0)
[2021-03-01 16:46] LABS: Albumin 4.1 g/dL (3.5-5.0); Calcium 9.3 mg/dL (8.4-10.2); Magnesium 2.2 mg/dL (1.6-2.3); Potassium 4.1 mmol/L (3.5-5.1); Total Bilirubin 0.2 mg/dL (0.2-1.3); Total Protein 7.1 g/dL (6.3-8.2)
[2021-03-01 16:50] LABS: Partial Thromboplastin Time 23.1 sec (22.0-30.0); Prothrombin Time 10.6 sec (9.0-12.0)
--- NOTE | 2021-03-01 16:54 | XR ---
EXAMINATION TYPE: XR chest 2V DATE OF EXAM: 03/01/2021 COMPARISON: Chest x-ray 03/17/2017 HISTORY: Pain TECHNIQUE: Frontal and lateral views of the chest are obtained. FINDINGS: There is no focal air space opacity, pleural effusion, or pneumothorax seen. The cardiac silhouette size is within normal limits. There is chronic elevation of the right hemidiaphragm a earline ent is post median sternotomy. Aorta is dense. There are overlying leads. The osseous structures are intact. IMPRESSION: No acute cardiopulmonary process.
--- NOTE | 2021-03-01 17:08 | ED ---
General Adult HPI - General Chief complaint: Recheck/Abnormal Lab/Rx Stated complaint: left side pain in arm and toes Time Seen by Provider: 03/01/21 15:27 Source: patient Mode of arrival: ambulatory Limitations: no limitations - History of Present Illness Initial comments: Patient is a 65-year-old male with history of heart disease, hypertension, perip heral vascular disease, presenting to the emergency Department with complaints of left arm discomfort that's been intermittent for the last 10 days. He states he went to urgent care today for the same issue and they recommended going into the ER for further evaluation. He denies any chest pain or shortness of breath, no injuries to his left arm or shoulder. He denies any previous surgeries to h is left shoulder or arm. He states his just feels achy, intermittent, sometimes radiates down to his elbow. No numbness and tingling. He states he does regular follow-up with lean specialist at the OR, every 6 months. He denies any changes in medications, he denies any fevers or chills. No nausea or vomiting, no abdominal pain. He has no further complaints at this time. No signs are stable upon arrival. - Related Data Home Medications Medication Instructions Recorded Confirmed Analbpmqfm-HSH-Xgzoupl-Codeine 1 - 2 tab PO Q4H PRN 12/05/14 09/27/19 [Fiorinal w/Cod 97-773-97-30MG] Cholecalciferol [Vitamin D3 (25 1,000 unit PO HS 12/05/14 09/27/19 Mcg = 1000 Iu)] Pentoxifylline [TRENtal] 400 mg PO TID 12/05/14 09/27/19 Aspirin 81 mg PO HS 03/06/15 09/27/19 Clopidogrel [Plavix] 75 mg PO HS 03/06/15 09/27/19 Docusate [Colace] 100 mg PO BID PRN 03/17/17 09/27/19 Ferrous Sulfate [Iron] 325 mg PO DAILY 03/17/17 09/27/19 Gabapentin [Neurontin] 300 mg PO TID 03/17/17 09/27/19 Metoprolol Succinate (ER) [Toprol 50 mg PO DAILY 03/17/17 09/27/19 XL] PARoxetine HCL [Paxil] 40 mg PO DAILY 03/17/17 09/27/19 Pantoprazole Sodium [Protonix] 40 mg PO DAILY 03/17/17 09/27/19 Sildenafil Citrate [Viagra] 100 mg PO ONCE PRN 03/17/17 09/27/19 Tamsulosin HCl [Flomax] 0.4 mg PO DAILY 03/17/17 09/27/19 hydrALAZINE HCL [Apresoline] 25 mg PO TID 03/17/17 09/27/19 lisinopriL [Zestril] 10 mg PO HS 03/17/17 09/27/19 lisinopriL [Zestril] 20 mg PO DAILY 03/17/17 09/27/19 traZODone HCL [Desyrel] 50 mg PO HS 03/17/17 09/27/19 Atorvastatin [Lipitor] 40 mg PO DAILY 03/18/17 09/27/19 Allergies Allergy/AdvReac Type Severity Reaction Status Date / Time No Known Allergies Allergy Verified 03/01/21 14:48 Review of Systems ROS Statement: Those systems with pertinent positive or pertinent negative responses have been documented in the HPI. ROS Other: All systems not noted in ROS Statement are negative. Past Medical History Past Medical History: Coronary Artery Disease (CAD), Chest Pain / Angina, Hyperlipidemia, Hypertension, Myocardial Infarction ([place]) Additional Past Medical History / Comment(s): Peripheral vascular disease, renal artery stenosis with previous renal artery stenting, insomnia, headache, coronary artery disease, hyperlipidemia, hypertension, NEUROPATHY Last Myocardial Infarction Date:: 2014 History of Any Multi-Drug Resistant Organisms: None Reported Past Surgical History: Coronary Bypass/CABG, Heart Catheterization Additional Past Surgical History / Comment(s): Previous PTCA of the lower extremity with stenting,LT ILIAC ARTERY STENT 11-12-13. bilateral renal artery stenting, balloon angioplasty of coronary artery, open heart surgery 02/2015 Past Anesthesia/Blood Transfusion Reactions: No Reported Reaction Past Psychological History: Anxiety, Depression Smoking Status: Never smoker Past Alcohol Use History: None Reported Past Drug Use History: Marijuana - Past Family History Brother(s) Family Medical History: Coronary Artery Disease (CAD), Diabetes Mellitus, Myocardial Infarction ([place]) Father Family Medical History: CVA/TIA, Myocardial Infarction ([place]) Additional Family Medical History / Comment(s): ANEURYSM Mother Family Medical History: CVA/TIA, Myocardial Infarction ([place]) Sister(s) Family Medical History: Cancer Additional Family Medical History / Comment(s): AT AGE 56 FROM [place] AND A SISTER AGE 55 ANEURYSM, AND SEVERAL SISTERS AND BROTHERS HAD CARDIAC HX(MIS) General Exam - General Exam Comments Initial Comments: GENERAL: Patient is well-developed and well-nourished. Patient is nontoxic and in no acute distress. HEAD: Atraumatic, normocephalic. EYES: Pupils equal round and reactive to light, extraocular movements intact, sclera anicteric, conjunctiva are normal. Eyelids were unremarkable. ENT: TMs normal, nares patent, oropharynx clear without exudates. Moist mucous membranes. NECK: Normal range of motion, supple without lymphadenopathy or JVD. LUNGS: Unlabored respirations. Breath sounds clear to auscultation bilaterally and equal. No wheezes rales or rhonchi. HEART: Regular rate and rhythm without murmurs, rubs or gallops. ABDOMEN: Soft, nontender, normoactive bowel sounds. No guarding, no rebound. No masses appreciated. : Deferred MUSCULOSKELETAL: Normal extremities with adequate strength and normal range of motion, no pitting or edema. No clubbing or cyanosis. Mild pain with palpation of the anterior left shoulder, positive impingement sign. NEUROLOGICAL: Patient is alert and oriented x 3. Motor and sensory are also intact. Cranial nerves II through XII grossly intact. Symmetrical smile. Normal speech, normal gait. PSYCH: Normal mood, normal affect. SKIN: Warm, Dry, normal turgor, no rashes or lesions noted. Limitations: no limitations Course Vital Signs 03/01/21 14:44 Temperature 97.8 F Pulse Rate 51 L Respiratory 20 Rate Blood Pressure 138/62 O2 Sat by Pulse 99 Oximetry EKG Findings - EKG Comments: EKG Findings:: Sinus bradycardia with frequent PVCs, cannot rule out anterior infarct, age undetermined, ST-T wave abnormalities, consider lateral ischemia. This is similar to his previous EKG on 03/18/2017. This is reviewed by Dr. Hogan. The jugular rate 52, WI interval 166, QTC 448. Medical Decision Making - Medical Decision Making Patient is a 65-year-old male here for intermittent left shoulder and arm pain over the past 10 days. No falls or trauma, no previous injuries. Denies any chest pain or shortness of breath today. He has a cardiac history. His vitals are stable, EKG showed no acute process today. His labs are within normal limits, troponin is negative. Chest x-ray shows no acute process. Patient's physical exam does reveal evidence some mild left-sided shoulder impingement. I discussed with patient that I feel like this could be an impingement related, less likely cardiac issue. Patient does follow-up frequently with his lean specialist as well as his PCP. I did recommend following up with his doctor in the next few days. He is in agreement with this plan of care. He is stable for discharge. Return parameters were discussed with the patient and he verbalized understanding. Case discussed with Dr. Hogan. - Lab Data Result diagrams: 03/01/21 16:12 03/01/21 16:12 Lab Results 03/01/21 03/01/21 03/01/21 Range/Units 16:12 16:12 16:12 WBC 5.4 (3.8-10.6) k/uL RBC 4.44 (4.30-5.90) m/uL Hgb 13.3 (13.0-17.5) gm/dL Hct 38.8 L (39.0-53.0) % MCV 87.3 (80.0-100.0) fL MCH 30.0 (25.0-35.0) pg MCHC 34.4 (31.0-37.0) g/dL RDW 15.3 (11.5-15.5) % Plt Count 173 (150-450) k/uL MPV 8.1 Neutrophils % 55 % Lymphocytes % 34 % Monocytes % 5 % Eosinophils % 4 % Basophils % 1 % Neutrophils # 3.0 (1.3-7.7) k/uL Lymphocytes # 1.9 (1.0-4.8) k/uL Monocytes # 0.3 (0-1.0) k/uL Eosinophils # 0.2 (0-0.7) k/uL Basophils # 0.1 (0-0.2) k/uL PT 10.6 (9.0-12.0) sec INR 1.0 (<1.2) APTT 23.1 (22.0-30.0) sec Sodium (137-145) mmol/L Potassium (3.5-5.1) mmol/L Chloride (98-107) mmol/L Carbon Dioxide (22-30) mmol/L Anion Gap mmol/L BUN (9-20) mg/dL Creatinine (0.66-1.25) mg/dL Est GFR (CKD-EPI)AfAm (>60 ml/min/1.73 sqM) Est GFR (CKD-EPI)NonAf (>60 ml/min/1.73 sqM) Glucose (74-99) mg/dL Calcium (8.4-10.2) mg/dL Magnesium (1.6-2.3) mg/dL Total Bilirubin (0.2-1.3) mg/dL AST (17-59) U/L ALT (4-49) U/L Alkaline Phosphatase (38-126) U/L Troponin I (0.000-0.034) ng/mL Total Protein (6.3-8.2) g/dL Albumin (3.5-5.0) g/dL Urine Color Yellow Urine Appearance Clear (Clear) Urine pH 6.0 (5.0-8.0) Ur Specific Brewster 1.017 (1.001-1.035) Urine Protein Negative (Negative) Urine Glucose (UA) Negative (Negative) Urine Ketones Negative (Negative) Urine Blood Negative (Negative) Urine Nitrite Negative (Negative) Urine Bilirubin Negative (Negative) Urine Urobilinogen <2.0 (<2.0) mg/dL Ur Leukocyte Esterase Negative (Negative) 03/01/21 03/01/21 Range/Units 16:12 16:12 WBC (3.8-10.6) k/uL RBC (4.30-5.90) m/uL Hgb (13.0-17.5) gm/dL Hct (39.0-53.0) % MCV (80.0-100.0) fL MCH (25.0-35.0) pg MCHC (31.0-37.0) g/dL RDW (11.5-15.5) % Plt Count (150-450) k/uL MPV Neutrophils % % Lymphocytes % % Monocytes % % Eosinophils % % Basophils % % Neutrophils # (1.3-7.7) k/uL Lymphocytes # (1.0-4.8) k/uL Monocytes # (0-1.0) k/uL Eosinophils # (0-0.7) k/uL Basophils # (0-0.2) k/uL PT (9.0-12.0) sec INR (<1.2) APTT (22.0-30.0) sec Sodium 141 (137-145) mmol/L Potassium 4.1 (3.5-5.1) mmol/L Chloride 105 (98-107) mmol/L Carbon Dioxide 28 (22-30) mmol/L Anion Gap 8 mmol/L BUN 20 (9-20) mg/dL Creatinine 1.43 H (0.66-1.25) mg/dL Est GFR (CKD-EPI)AfAm 59 (>60 ml/min/1.73 sqM) Est GFR (CKD-EPI)NonAf 51 (>60 ml/min/1.73 sqM) Glucose 97 (74-99) mg/dL Calcium 9.3 (8.4-10.2) mg/dL Magnesium 2.2 (1.6-2.3) mg/dL Total Bilirubin 0.2 (0.2-1.3) mg/dL AST 23 (17-59) U/L ALT 9 (4-49) U/L Alkaline Phosphatase 69 (38-126) U/L Troponin I <0.012 (0.000-0.034) ng/mL Total Protein 7.1 (6.3-8.2) g/dL Albumin 4.1 (3.5-5.0) g/dL Urine Color Urine Appearance (Clear) Urine pH (5.0-8.0) Ur Specific Brew[place] (1.001-1.035) Urine Protein (Negative) Urine Glucose (UA) (Negative) Urine Ketones (Negative) Urine Blood (Negative) Urine Nitrite (Negative) Urine Bilirubin (Negative) Urine Urobilinogen (<2.0) mg/dL Ur Leukocyte Esterase (Negative) Disposition Clinical Impression: Left arm pain, Impingement syndrome, shoulder, left Disposition: HOME SELF-CARE Condition: Stable Instructions (If sedation given, give patient instructions): Rotator Cuff Injury (ED) Additional Instructions: Please return to the Emergency Department if symptoms worsen or any other concerns. Recommend ice or heat to the left shoulder, limits use of left arm for rest. Follow-up with your primary care physician 1-3 days. Is patient prescribed a controlled substance at d/c from ED?: No Referrals: [facility],Clinic [Primary Care Provider] - 1-2 days Time of Disposition: 17:35
== END 2021-03-01 17:46 | disposition home or self-care (01) ==
LOC: EC 14:09
DX: M75.42 Impingement syndrome of left shoulder (principal); M79.675 Pain in left toe(s); I11.9 Hypertensive heart disease without heart failure; E78.5 Hyperlipidemia, unspecified; I25.2 Old myocardial infarction; G62.9 Polyneuropathy, unspecified; I25.10 Atherosclerotic heart disease of native coronary artery without angina pectoris; F32.9 Major depressive disorder, single episode, unspecified; F41.9 Anxiety disorder, unspecified; F12.90 Cannabis use, unspecified, uncomplicated; Z79.02 Long term (current) use of antithrombotics/antiplatelets; Z79.82 Long term (current) use of aspirin
CPT/HCPCS: 36415; 71046; 80053; 81003; 83735; 84484; 85025; 85610; 85730; 93005; 99284

== ENCOUNTER 2021-05-03 11:03 | Inpatient (IN) | payer OTHER, MEDICARE ==
[2021-05-03] MEDS ORDERED: SODIUM CHLORIDE 0.9% 500 ML 500 ML IV STA (11:49)
--- NOTE | 2021-05-03 12:03 | ED ---
General Adult HPI - General Chief complaint: Neuro Symptoms/Deficit Stated complaint: left side weakness Time Seen by Provider: 05/03/21 11:15 Source: patient, RN notes reviewed, old records reviewed Mode of arrival: wheelchair Limitations: no limitations - History of Present Illness Initial comments: This is a 65-year-old male who presents emergency Department with a past medical history significant for hypertension high cholesterol and coronary artery disease. Patient states on Friday evening he started having left arm and left leg weakness as well as some facial droop. Patient states he also noted that his left arm was unable to perform some simple tasks. 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 Patient states the symptoms persisted until today and he did not come in earlier because he was just too tired. Patient denies any recent fever chills or cough per patient denies any headache. Patient denies any chest pain difficulty breathing shortness of breath. Patient denies any abdominal pain. Patient denies any nausea vomiting. Patient states the symptoms in his arm have occasionally come on and off over the last 2-3 years but they never lasted very long. This is the first time they've persisted for over a day. - Related Data Home Medications Medication Instructions Recorded Confirmed Edmaspbrhs-OAK-Xdunkrs-Codeine 1 tab PO DAILY 12/05/14 05/03/21 [Fiorinal w/Cod 88-894-53-30MG] Cholecalciferol [Vitamin D3 (25 25 mcg PO DAILY 12/05/14 05/03/21 Mcg = 1000 Iu)] Pentoxifylline [TRENtal] 400 mg PO TID 12/05/14 05/03/21 Clopidogrel [Plavix] 75 mg PO HS 03/06/15 05/03/21 Docusate [Colace] 100 mg PO BID 03/17/17 05/03/21 Ferrous Sulfate [Iron] 325 mg PO DAILY 03/17/17 05/03/21 Metoprolol Succinate (ER) [Toprol 50 mg PO DAILY 03/17/17 05/03/21 XL] PARoxetine HCL [Paxil] 40 mg PO DAILY 03/17/17 05/03/21 Sildenafil Citrate [Viagra] 50 mg PO ONCE PRN 03/17/17 05/03/21 Tamsulosin HCl [Flomax] 0.4 mg PO BID 03/17/17 05/03/21 lisinopriL [Zestril] 10 mg PO BID 03/17/17 05/03/21 traZODone HCL [Desyrel] 50 mg PO HS 03/17/17 05/03/21 Aspirin EC [Ecotrin Low Dose] 81 mg PO DAILY 05/03/21 05/03/21 Atorvastatin [Lipitor] 40 mg PO HS 05/03/21 05/03/21 Cilostazol [Pletal] 100 mg PO BID 05/03/21 05/03/21 Gabapentin [Neurontin] 400 mg PO TID 05/03/21 05/03/21 amLODIPine [Norvasc] 10 mg PO DAILY 05/03/21 05/03/21 hydroCHLOROthiazide [Hydrodiuril] 25 mg PO DAILY 05/03/21 05/03/21 Allergies Allergy/AdvReac Type Severity Reaction Status Date / Time No Known Allergies Allergy Verified 05/03/21 12:55 Review of Systems ROS Statement: Those systems with pertinent positive or pertinent negative responses have been documented in the HPI. ROS Other: All systems not noted in ROS Statement are negative. Past Medical History Past Medical History: Coronary Artery Disease (CAD), Chest Pain / Angina, Hyperlipidemia, Hypertension, Myocardial Infarction ([place]) Additional Past Medical History / Comment(s): Peripheral vascular disease, renal artery stenosis with previous renal artery stenting, insomnia, headache, coronary artery disease, hyperlipidemia, hypertension, NEUROPATHY Last Myocardial Infarction Date:: 2014 History of Any Multi-Drug Resistant Organisms: None Reported Past Surgical History: Coronary Bypass/CABG, Heart Catheterization Additional Past Surgical History / Comment(s): Previous PTCA of the lower extremity with stenting,LT ILIAC ARTERY STENT 3-. bilateral renal artery stenting, balloon angioplasty of coronary artery, open heart surgery 02/2015 Past Anesthesia/Blood Transfusion Reactions: No Reported Reaction Past Psychological History: Anxiety, Depression Smoking Status: Never smoker Past Alcohol Use History: None Reported Past Drug Use History: Marijuana - Past Family History Brother(s) Family Medical History: Coronary Artery Disease (CAD), Diabetes Mellitus, Myocardial Infarction ([place]) Father Family Medical History: CVA/TIA, Myocardial Infarction ([place]) Additional Family Medical History / Comment(s): ANEURYSM Mother Family Medical History: CVA/TIA, Myocardial Infarction ([place]) Sister(s) Family Medical History: Cancer Additional Family Medical History / Comment(s): AT AGE 56 FROM [place] AND A SISTER AGE 55 ANEURYSM, AND SEVERAL SISTERS AND BROTHERS HAD CARDIAC HX(MIS) General Exam - General Exam Comments Initial Comments: GENERAL: Patient is well-developed and well-nourished. Patient is nontoxic and well- hydrated and is in mild distress. ENT: Neck is soft and supple. No significant lymphadenopathy is noted. Oropharynx is clear. Moist mucous membranes. Neck has full range of motion without eliciting any pain. EYES: The sclera were anicteric and conjunctiva were pink and moist. Extraocular movements were intact and pupils were equal round and reactive to light. Eyelids were unremarkable. PULMONARY: Unlabored respirations. Good breath sounds bilaterally. No audible rales rhonchi or wheezing was noted. CARDIOVASCULAR: There is a regular rate and rhythm without any murmurs gallops or rubs. ABDOMEN: Soft and nontender with normal bowel sounds. SKIN: Skin is clear with no lesions or rashes and otherwise unremarkable. NEUROLOGIC: Patient is alert and oriented x3. Cranial nerves II through XII are grossly intact. Motor and sensory are also intact. Normal speech, volume and content. Symmetrical smile. Cerebellar testing finger to nose was normal on the left but abnormal on the left. 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 Patient's dorsiflexion on the left foot was weaker than the right significantly. Patient also has some left-sided facial droop. MUSCULOSKELETAL: Normal extremities with adequate strength and full range of motion. No lower extremity swelling or edema. No calf tenderness. LYMPHATICS: No significant lymphadenopathy is noted PSYCHIATRIC: Normal psychiatric evaluation. Limitations: no limitations Course Vital Signs 05/03/21 05/03/21 11:16 11:59 Temperature 97.7 F Pulse Rate 57 L 60 Respiratory 16 18 Rate Blood Pressure 123/79 145/91 O2 Sat by Pulse 97 95 Oximetry Medical Decision Making - Medical Decision Making EKG shows sinus bradycardia with occasional PVC SC interval is 170 QRS is 106 QT interval [address] of the brain shows no acute abnormality. Chest x-ray shows no acute abn ormalities. I spoke with Dr. Ko he agreed to admit the patient admitted the patient wrote admitting orders. - Lab Data Result diagrams: 05/03/21 11:57 05/03/21 11:57 Lab Results 05/03/21 05/03/21 05/03/21 Range/Units 11:57 11:57 11:57 WBC 5.1 (3.8-10.6) k/uL RBC 4.71 (4.30-5.90) m/uL Hgb 14.4 (13.0-17.5) gm/dL Hct 41.3 (39.0-53.0) % MCV 87.7 (80.0-100.0) fL MCH 30.7 (25.0-35.0) pg MCHC 35.0 (31.0-37.0) g/dL RDW 14.8 (11.5-15.5) % Plt Count 213 (150-450) k/uL MPV 8.2 Neutrophils % 47 % Lymphocytes % 41 % Monocytes % 5 % Eosinophils % 3 % Basophils % 1 % Neutrophils # 2.4 (1.3-7.7) k/uL Lymphocytes # 2.1 (1.0-4.8) k/uL Monocytes # 0.3 (0-1.0) k/uL Eosinophils # 0.2 (0-0.7) k/uL Basophils # 0.1 (0-0.2) k/uL PT 10.7 (9.0-12.0) sec INR 1.0 (<1.2) APTT 23.5 (22.0-30.0) sec Sodium 138 (137-145) mmol/L Potassium 3.9 (3.5-5.1) mmol/L Chloride 106 (98-107) mmol/L Carbon Dioxide 25 (22-30) mmol/L Anion Gap 7 mmol/L BUN 23 H (9-20) mg/dL Creatinine 1.42 H (0.66-1.25) mg/dL Est GFR (CKD-EPI)AfAm 59 (>60 ml/min/1.73 sqM) Est GFR (CKD-EPI)NonAf 51 (>60 ml/min/1.73 sqM) Glucose 134 H (74-99) mg/dL Calcium 9.5 (8.4-10.2) mg/dL Total Bilirubin 0.4 (0.2-1.3) mg/dL AST 26 (17-59) U/L ALT 12 (4-49) U/L Alkaline Phosphatase 68 (38-126) U/L Troponin I (0.000-0.034) ng/mL Total Protein 7.5 (6.3-8.2) g/dL Albumin 4.2 (3.5-5.0) g/dL 05/03/21 Range/Units 11:57 WBC (3.8-10.6) k/uL RBC (4.30-5.90) m/uL Hgb (13.0-17.5) gm/dL Hct (39.0-53.0) % MCV (80.0-100.0) fL MCH (25.0-35.0) pg MCHC (31.0-37.0) g/dL RDW (11.5-15.5) % Plt Count (150-450) k/uL MPV Neutrophils % % Lymphocytes % % Monocytes % % Eosinophils % % Basophils % % Neutrophils # (1.3-7.7) k/uL Lymphocytes # (1.0-4.8) k/uL Monocytes # (0-1.0) k/uL Eosinophils # (0-0.7) k/uL Basophils # (0-0.2) k/uL PT (9.0-12.0) sec INR (<1.2) APTT (22.0-30.0) sec Sodium (137-145) mmol/L Potassium (3.5-5.1) mmol/L Chloride (98-107) mmol/L Carbon Dioxide (22-30) mmol/L Anion Gap mmol/L BUN (9-20) mg/dL Creatinine (0.66-1.25) mg/dL Est GFR (CKD-EPI)AfAm (>60 ml/min/1.73 sqM) Est GFR (CKD-EPI)NonAf (>60 ml/min/1.73 sqM) Glucose (74-99) mg/dL Calcium (8.4-10.2) mg/dL Total Bilirubin (0.2-1.3) mg/dL AST (17-59) U/L ALT (4-49) U/L Alkaline Phosphatase (38-126) U/L Troponin I 0.014 (0.000-0.034) ng/mL Total Protein (6.3-8.2) g/dL Albumin (3.5-5.0) g/dL Disposition Clinical Impression: Cerebrovascular accident (CVA) Disposition: ADMITTED IP TO THIS HOSP Referrals: [facility],Clinic [Primary Care Provider] - 1-2 days Time of Disposition: 13:28
[2021-05-03 12:07] LABS: Basophils # (A) 0.1 k/uL (0-0.2); Basophils % (A) 1 %; Eosinophils # (A) 0.2 k/uL (0-0.7); Eosinophils % (A) 3 %; HCT 41.3 % (39.0-53.0); HGB 14.4 gm/dL (13.0-17.5); Lymphocytes # (A) 2.1 k/uL (1.0-4.8); Lymphocytes % (A) 41 %; MCH 30.7 pg (25.0-35.0); MCV 87.7 fL (80.0-100.0); Mean Platelet Volume 8.2; Monocytes # (A) 0.3 k/uL (0-1.0); Monocytes % (A) 5 %; Neutrophils # (A) 2.4 k/uL (1.3-7.7); Neutrophils % (A) 47 %; Platelet Count 213 k/uL (150-450); RBC 4.71 m/uL (4.30-5.90); RDW 14.8 % (11.5-15.5); WBC 5.1 k/uL (3.8-10.6)
[2021-05-03 12:17] LABS: Partial Thromboplastin Time 23.5 sec (22.0-30.0); Prothrombin Time 10.7 sec (9.0-12.0)
[2021-05-03 12:22] LABS: Albumin 4.2 g/dL (3.5-5.0); Calcium 9.5 mg/dL (8.4-10.2); Total Bilirubin 0.4 mg/dL (0.2-1.3); Total Protein 7.5 g/dL (6.3-8.2)
[2021-05-03 12:27] LABS: Potassium 3.9 mmol/L (3.5-5.1)
--- NOTE | 2021-05-03 12:30 | CT ---
EXAMINATION TYPE: CT brain wo con for TPA DATE OF EXAM: 05/03/2021 COMPARISON: None HISTORY: Left sided weakness. CT DLP: 1119.[address] of the brain was performed. The ventricles, basal cisterns and sulci overlying the cerebral convexities demonstrate mild enlargem ent. There is no evidence for intracranial hemorrhage or sulcal effacement. There is decreased attenuation about the periventricular white matter and deep white matter of both c erebral hemispheres, compatible with chronic small vessel ischemia. Differential diagnosis does inclu de demyelination. No mass effects are seen.No midline shift. Osseous calvarium is intact. If symptoms persist consider MRI. IMPRESSION: 1. Age related atrophic and chronic small vessel ischemic change without acute intracranial process s een at this time.
--- NOTE | 2021-05-03 12:46 | XR ---
EXAMINATION TYPE: XR chest 2V DATE OF EXAM: 05/03/2021 COMPARISON: Chest x-ray 03/01/2021 HISTORY: Altered mental status TECHNIQUE: Frontal and lateral views of the chest are obtained. FINDINGS: There is no focal air space opacity, pleural effusion, or pneumothorax seen. The cardiac silhouette size is within normal limits. Patient is rotated and post median sternotomy. There are ov erlying leads. Right hemidiaphragm remains elevated. Aorta is atheromatous. There are overlying artif acts. The osseous structures are intact. IMPRESSION: No acute cardiopulmonary process.
[2021-05-03] MEDS ORDERED: ASPIRIN 325 MG TAB PO STA (13:28)
--- NOTE | 2021-05-03 14:00 | CT ---
EXAMINATION TYPE: CT angio head neck DATE OF EXAM: 05/03/2021 COMPARISON: None HISTORY: Left sided weakness. CT DLP: 482.8 mGycm CONTRAST: Performed with IV Contrast, patient injected with 100 mL of Isovue 300. Combination Contrast CTA cervical carotids and [place] CTA cervical carotids with 3-D recons truction Contrast CTA of the cervical carotids was performed 3-D reconstruction imaging obtained at a separate workstation. Right carotid system: Mild plaque is seen of the right common carotid artery. There is moderate calc ified plaque also noted at the carotid bulb and proximal ICA. Estimated diameter reduction of greate r than 80%. ECA is patent. Right vertebral artery appears unremarkable. Left carotid system: Mild plaque is seen of the left common carotid artery. There is mild to moderat e calcified plaque also noted at the carotid bulb and proximal ICA. Estimated diameter reduction of approximately 50%. ECA is patent. Left vertebral artery appears unremarkable. IMPRESSION: 1. Right ICA estimated diameter reduction of greater than 80%. 2. Estimated diameter reduction left ICA of approximately 50%. CTA [place] with 3-D reconstruction Contrast CTA of the [place] was performed 3-D reconstruction imaging obtained at a separate workstation. Vertebrobasilar system as well as intracranial portions of the internal carotid arteries and their ma nish tributaries are patent. I do not see evidence for sizable aneurysm or vascular malformation. Pl ease note MRI provides greater sensitivity and specificity. Visualized brain appears grossly unremar kable. IMPRESSION: 1. No significant abnormality. NASCET criteria was used in interpretation of this exam?
[2021-05-03] MEDS: amLODIPine 10 MG TAB PO SCH (17:17)
--- NOTE | 2021-05-03 18:25 | P.CNNES ---
History of Present Illness Consult date: 05/03/21 Requesting physician: Lc Wang Reason for Consult: CVA History of Present Illness: Patient is a 65-year-old male came to the hospital today at 11:03 AM for possible stroke TIA. Patient states that day before yesterday on Friday night at 9 PM, he was laying in the couch. He tried to get up to go to his bed to sleep. However when he tried to get up, couldn't. His left arm and leg felt weak. He felt the left leg was giving out and felt off balance. He somehow made it to the bed, stayed there for half an hour, when felt better, then went to sleep. The next morning, which is yesterday when he woke up, he continued to have some weakness of the left side. He did go for a walk and felt dizzy. He made it about a quarter mile. He is noticing difficulty grabbing things with his left hand. When he is walking, feels off balance, and the left leg feels weak. Vital signs on arrival blood pressure 123/79, pulse rate 57, temperature 97.7. Patient's blood test shows normal CBC, PT/PTT, electrolytes. BUN 13, creatinine 1.42. Hepatic panel is normal. Troponin negative. CT head showed age-related atrophic and chronic small vessel ischemic changes without acute intracranial process seen at this time. Chest x-ray showed no acute cardiopulmonary disease. EKG was sinus bradycardia with frequent in consecutive PVCs. Left axis deviation. CTA of the neck showed right ICA estimated diameter reduction of greater than 80%. Estimated diameter reduction left ICA of approximately 50%. CTA of [place] shows no significant abnormality. Patient's carotid Doppler from 12/07/2014 shows moderate right ICA stenosis of 50-69%. Patient's blood test shows normal CBC, PT/PTT, normal chem 20. BUN is 23, creatinine 1.42. Patient states he has borderline diabetes. He has hypertension since he was a teenager. He has smoked 1 pack per day for 20 years, quit tobacco 26 years ago. He has coronary artery disease, [place] with double bypass. He has 2 stents in the kidneys. He has not been alcohol for last 20 years. Smokes weed. Patient states that he drags his left leg for last 10 years and sometimes he stubs his left foot. This is worse since last 2 days. Patient's home medications include pentoxifylline 400 mg 3 times a day, vitamin D, Fioricet, Plavix 75 mg, trazodone 50 mg, via [place], Paxil 40 mg, metoprolol, lisinopril, Lipitor 40 mg, HCTZ, amlodipine 10 mg, aspirin 81 mg, Pletal 100 mg twice a day and gabapentin. Review of Systems As mentioned above in detail. Denies any chest pain, shortness of breath, wheezing or cough. Denies any abdominal pain, nausea vomiting diarrhea. He has mild chronic left leg weakness. Denies any double vision, or loss of vision. No hoarseness, sore throat, dysphagia. Past Medical History Past Medical History: Coronary Artery Disease (CAD), Chest Pain / Angina, Hyperlipidemia, Hypertension, Myocardial Infarction ([place]) Additional Past Medical History / Comment(s): Peripheral vascular disease, renal artery stenosis with previous renal artery stenting, insomnia, headache, coronary artery disease, hyperlipidemia, hypertension, NEUROPATHY Last Myocardial Infarction Date:: 2014 History of Any Multi-Drug Resistant Organisms: None Reported Past Surgical History: Coronary Bypass/CABG, Heart Catheterization Additional Past Surgical History / Comment(s): Previous PTCA of the lower extremity with stenting,LT ILIAC ARTERY STENT 11-12-13. bilateral renal artery stenting, balloon angioplasty of coronary artery, open heart surgery 02/2015 Past Anesthesia/Blood Transfusion Reactions: No Reported Reaction Past Psychological History: Anxiety, Depression Smoking Status: Never smoker Past Alcohol Use History: None Reported Past Drug Use History: Marijuana - Past Family History Brother(s) Family Medical History: Coronary Artery Disease (CAD), Diabetes Mellitus, Myocardial Infarction ([place]) Father Family Medical History: CVA/TIA, Myocardial Infarction ([place]) Additional Family Medical History / Comment(s): ANEURYSM Mother Family Medical History: CVA/TIA, Myocardial Infarction ([place]) Sister(s) Family Medical History: Cancer Additional Family Medical History / Comment(s): AT AGE 56 FROM [place] AND A SISTER AGE 55 ANEURYSM, AND SEVERAL SISTERS AND BROTHERS HAD CARDIAC HX(MIS) Medications and Allergies Home Medications Medication Instructions Recorded Confirmed Type Mocydnalgj-KNU-Dqxhyly-Codeine 1 tab PO DAILY 12/05/14 05/03/21 History [Fiorinal w/Cod 54-833-52-30MG] Cholecalciferol [Vitamin D3 (25 25 mcg PO DAILY 12/05/14 05/03/21 History Mcg = 1000 Iu)] Pentoxifylline [TRENtal] 400 mg PO TID 12/05/14 05/03/21 History Clopidogrel [Plavix] 75 mg PO HS 03/06/15 05/03/21 History Docusate [Colace] 100 mg PO BID 03/17/17 05/03/21 History Ferrous Sulfate [Iron] 325 mg PO DAILY 03/17/17 05/03/21 History Metoprolol Succinate (ER) [Toprol 50 mg PO DAILY 03/17/17 05/03/21 History XL] PARoxetine HCL [Paxil] 40 mg PO DAILY 03/17/17 05/03/21 History Sildenafil Citrate [Viagra] 50 mg PO ONCE PRN 03/17/17 05/03/21 History Tamsulosin HCl [Flomax] 0.4 mg PO BID 03/17/17 05/03/21 History lisinopriL [Zestril] 10 mg PO BID 03/17/17 05/03/21 History traZODone HCL [Desyrel] 50 mg PO HS 03/17/17 05/03/21 History Aspirin EC [Ecotrin Low Dose] 81 mg PO DAILY 05/03/21 05/03/21 History Atorvastatin [Lipitor] 40 mg PO HS 05/03/21 05/03/21 History Cilostazol [Pletal] 100 mg PO BID 05/03/21 05/03/21 History Gabapentin [Neurontin] 400 mg PO TID 05/03/21 05/03/21 History amLODIPine [Norvasc] 10 mg PO DAILY 05/03/21 05/03/21 History hydroCHLOROthiazide [Hydrodiuril] 25 mg PO DAILY 05/03/21 05/03/21 History Allergies Allergy/AdvReac Type Severity Reaction Status Date / Time No Known Allergies Allergy Verified 05/03/21 12:55 Physical Examination - Vital Signs Vital Signs: Vital Signs Temp Pulse Pulse Resp BP BP Pulse Ox 05/03/21 16:00 97.6 F 52 L 186/86 100 05/03/21 14:17 53 L 18 162/87 98 05/03/21 11:59 60 18 145/91 95 05/03/21 11:16 97.7 F 57 L 16 123/79 97 Intake and Output 05/03/21 05/03/21 05/03/21 06:59 14:59 22:59 Other: Weight 81.193 kg Patient is an elderly Afro-[place] male, in no acute distress. Patient is alert awake oriented to time place and person. Speech and language functions are normal. Attention, concentration and fund of knowledge is adequate. No aphasia or dysarthria. On cranial examination, pupils are round and reacting to light, visual dan are full on confrontation, extraocular muscles are intact with no nystagmus. Patient has right facial asymmetry, but appears fairly normal on active testing. His tongue protrudes to the midline. Palatal elevation and sensation normal, hearing and shoulder shrug normal, facial sensation normal. On muscle strength testing, there is very mild left pronator drift. The strength is mostly normal in the arms and legs distally and proximally except left hip flexion 5-and left ankle dorsiflexion 5-. Deep tendon reflexes are symmetric, absent at brachioradialis, 1 at biceps, 2 at Knees and 1 ankles and planters down going bilaterally. Sensory to touch is equal with no neglect. Cerebellar function showed moderate ataxia for fyudsh-vy-zapm and cyyg-cw-dpvl testing on the left side. Tone and bulk of muscles normal. Gait deferred. On general examination, there is no carotid bruit or murmur, S1-S2 audible. Abdomen is soft nontender. Chest is clear. No cyanosis. No edema. Results - Laboratory Findings CBC and BMP: 05/04/21 07:29 05/04/21 07:29 Abnormal Lab Findings: Abnormal Labs 05/03/21 11:57 BUN 23 H Creatinine 1.42 H Glucose 134 H Assessment and Plan Assessment: * Acute ischemic stroke with mild left ataxic hemiparesis, likely due to sy mptomatic right ICA stenosis. * Right ICA stenosis > 80% per CTA. * Hypertension * Peripheral arterial disease * Coronary artery disease * History of renal artery stents * X tobacco use * Marijuana use Plan: * MRI of the brain evaluate for an acute stroke. * Patient has failed aspirin and Plavix regimen. He states he is fully compliant with the medication, does not miss the dose. We will switch from Plavix to Brilinta 90 mg twice a day. * Fasting a.m. lipid panel, hemoglobin A1c. * Vascular surgical consultation for symptomatic right ICA stenosis. * Avoid excessive hypotension. * Neurology will follow.
[2021-05-03] MEDS: GABAPENTIN 400 MG CAP PO SCH (20:16)
[2021-05-03] MEDS: TICAGRELOR 90 MG TAB PO SCH (20:16)
[2021-05-03] MEDS: lisinopriL 10 MG TAB PO SCH (20:16)
[2021-05-03] MEDS: DOCUSATE 100 MG CAP PO SCH (20:16)
[2021-05-03] MEDS: ATORVASTATIN 40 MG TAB PO SCH (20:16)
[2021-05-03] MEDS: traZODone HCL 50 MG TAB PO SCH (20:16)
[2021-05-03] MEDS: PENTOXIFYLLINE 400 MG TABLET.ER PO SCH (20:16)
[2021-05-03] MEDS: TAMSULOSIN 0.4 MG CAP.ER.24H PO SCH (20:16)
[2021-05-03] MEDS: cilostazoL 100 MG TAB PO SCH (20:37)
[2021-05-03] MEDS ORDERED: CLOPIDOGREL 75 MG TAB PO SCH (21:00)
--- NOTE | 2021-05-04 00:43 | P.HPIM ---
History of Present Illness H&P Date: 05/03/21 Chief Complaint: Left-sided weakness Patient is a 65-year-old male with a known history of coronary artery disease with history of CABG, peripheral vascular disease, hypertension, hyperlipidemia, history of [place], anxiety/depression and occasional marijuana use presents to ER w ith complaints of left-sided weakness. Patient states that about 2 days back on Friday patient was trying to get out of bed at around 9 PM and could not get himself up and also he noticed having left-sided weakness. Also is having facial droop and slurred speech. Patient did not come to ER immediately. He has been walking with walker about half a mile daily. Patient states that he's been wobbly with walking. Denied any blurred vision or diplopia. Due to the symptoms not getting better patient presented to ER for evaluation. Denied any headache but mild dizziness. No complains of chest pain. No palpitations. Denied any leg swelling. In the ER blood pressure was 123/79 pulse 57 respiration 18 98% on room air and afebrile. CT head showed is related atrophic and chronic small vessel ischemic changes without acute intracranial process. Chest x-ray showed no acute cardio pulmonary process EKG showed sinus bradycardia with heart rate [address] angiography of the head and neck showed right ICA estimated diameter reduction of greater than 80%. Estimated diameter reduction left ICA up approximately 50%. CTA headand abnormality. Laboratory data showed WBC 5.1 hemoglobin 14.4 and platelets 213, BUN 23 and creatinine 1.42 Review of Systems Constitutional: Patient denies any fever or chills . No generalized weakness or weight loss. Abdomen: Patient denied nausea vomiting and diarrhea and abdominal pain. Cardiovascular: Patient denies any chest pain or short of breath no palpitations. Respiratory: patient denied any cough is from production. No shortness of breath Neurologic: Patient denied any numbness or tingling headache. Complains of left-sided weakness and facial droop and gait imbalance.. Musculoskeletal: Patient denies any complaints of joint swelling or deformity. Skin: Negative Psychiatric: Negative Endocrine: No heat or cold intolerance. No recent weight gain. Genitourinary: No dysuria or hematuria. All other 14 point ROS negative except the above Past Medical History Past Medical History: Coronary Artery Disease (CAD), Chest Pain / Angina, Hyperlipidemia, Hypertension, Myocardial Infarction ([place]) Additional Past Medical History / Comment(s): Peripheral vascular disease, renal artery stenosis with previous renal artery stenting, insomnia, headache, coronary artery disease, hyperlipidemia, hypertension, NEUROPATHY Last Myocardial Infarction Date:: 2014 History of Any Multi-Drug Resistant Organisms: None Reported Past Surgical History: Coronary Bypass/CABG, Heart Catheterization Additional Past Surgical History / Comment(s): Previous PTCA of the lower extremity with stenting,LT ILIAC ARTERY STENT 3--14. bilateral renal artery stenting, balloon angioplasty of coronary artery, open heart surgery 02/2015 Past Anesthesia/Blood Transfusion Reactions: No Reported Reaction Past Psychological History: Anxiety, Depression Smoking Status: Never smoker Past Alcohol Use History: None Reported Past Drug Use History: Marijuana - Past Family History Brother(s) Family Medical History: Coronary Artery Disease (CAD), Diabetes Mellitus, Myocardial Infarction ([place]) Father Family Medical History: CVA/TIA, Myocardial Infarction ([place]) Additional Family Medical History / Comment(s): ANEURYSM Mother Family Medical History: CVA/TIA, Myocardial Infarction ([place]) Sister(s) Family Medical History: Cancer Additional Family Medical History / Comment(s): AT AGE 56 FROM [place] AND A SISTER AGE 55 ANEURYSM, AND SEVERAL SISTERS AND BROTHERS HAD CARDIAC HX(MIS) Medications and Allergies Home Medications Medication Instructions Recorded Confirmed Type Ijqmuxqlab-QJW-Ompuiis-Codeine 1 tab PO DAILY 12/05/14 05/03/21 History [Fiorinal w/Cod 75-821-09-30MG] Cholecalciferol [Vitamin D3 (25 25 mcg PO DAILY 12/05/14 05/03/21 History Mcg = 1000 Iu)] Pentoxifylline [TRENtal] 400 mg PO TID 12/05/14 05/03/21 History Clopidogrel [Plavix] 75 mg PO HS 03/06/15 05/03/21 History Docusate [Colace] 100 mg PO BID 03/17/17 05/03/21 History Ferrous Sulfate [Iron] 325 mg PO DAILY 03/17/17 05/03/21 History Metoprolol Succinate (ER) [Toprol 50 mg PO DAILY 03/17/17 05/03/21 History XL] PARoxetine HCL [Paxil] 40 mg PO DAILY 03/17/17 05/03/21 History Sildenafil Citrate [Viagra] 50 mg PO ONCE PRN 03/17/17 05/03/21 History Tamsulosin HCl [Flomax] 0.4 mg PO BID 03/17/17 05/03/21 History lisinopriL [Zestril] 10 mg PO BID 03/17/17 05/03/21 History traZODone HCL [Desyrel] 50 mg PO HS 03/17/17 05/03/21 History Aspirin EC [Ecotrin Low Dose] 81 mg PO DAILY 05/03/21 05/03/21 History Atorvastatin [Lipitor] 40 mg PO HS 05/03/21 05/03/21 History Cilostazol [Pletal] 100 mg PO BID 05/03/21 05/03/21 History Gabapentin [Neurontin] 400 mg PO TID 05/03/21 05/03/21 History amLODIPine [Norvasc] 10 mg PO DAILY 05/03/21 05/03/21 History hydroCHLOROthiazide [Hydrodiuril] 25 mg PO DAILY 05/03/21 05/03/21 History Allergies Allergy/AdvReac Type Severity Reaction Status Date / Time No Known Allergies Allergy Verified 05/03/21 12:55 Physical Exam Vitals: Vital Signs Temp Pulse Pulse Resp BP BP Pulse Ox 05/03/21 16:00 97.6 F 52 L 186/86 100 05/03/21 14:17 53 L 18 162/87 98 05/03/21 11:59 60 18 145/91 95 05/03/21 11:16 97.7 F 57 L 16 123/79 97 Intake and Output 05/03/21 05/03/21 05/03/21 06:59 14:59 22:59 Other: Weight 81.193 kg PHYSICAL EXAMINATION: Patient is lying in the bed comfortably, no acute distress, awake alert and oriented.. HEENT: Normocephalic. Neck is supple. Pupils reactive. Nostrils clear. Oral cavity is moist. Neck reveals no JVD, carotid bruits, or thyromegaly. CHEST EXAMINATION: Trachea is central. Symmetrical expansion. Lung dna clear to auscultation and percussion. CARDIAC: Normal S1, S2 with no gallops. No murmurs ABDOMEN: Soft. Bowel sounds normal. No organomegaly. No abdominal bruits. Extremities: reveal no edema. No clubbing or cyanosis Neurologically awake, alert, oriented x3 with well-coordinated movements. Left facial droop and left-sided hemiparesis with muscle strength -4-5. Skin: No rash or skin lesions. Psychiatric: Coperative. Nonsuicidal Musculoskeletal: No joint swelling or deformity. Normal range of motion. Results CBC & Chem 7: 05/04/21 07:29 05/04/21 07:29 Labs: Abnormal Lab Results - Last 24 Hours (Table) 05/03/21 Range/Units 11:57 BUN 23 H (9-20) mg/dL Creatinine 1.42 H (0.66-1.25) mg/dL Glucose 134 H (74-99) mg/dL Thrombosis Risk Factor Assmnt - DVT/VTE Prophylaxis DVT/VTE Prophylaxis: Pharmacologic Prophylaxis ordered Assessment and Plan Assessment: Acute CVA with left-sided weakness with ataxic gait. Right ICA greater than 80% stenosis. Hypertension Coronary artery disease with history of stent placement Severe peripheral vascular disease History of renal artery stent Chronic kidney disease stage III history of smoking and marijuana use DVT prophylaxis. Plan: Patient will be continued on telemetry monitoring. Currently on aspirin Plavix. Neurology has seen the patient and recommended to continue aspirin and change Plavix to Brillinta. Vascular surgery was consulted due to greater than 80% right ICA stenosis. Continue with home blood pressure medications and follow up closely. Neurology is on board. MRI of the brain was ordered. Time with Patient: Greater than 30
[2021-05-04 08:14] LABS: Basophils # (A) 0.1 k/uL (0-0.2); Basophils % (A) 1 %; Eosinophils # (A) 0.2 k/uL (0-0.7); Eosinophils % (A) 3 %; HCT 44.7 % (39.0-53.0); HGB 15.9 gm/dL (13.0-17.5); Lymphocytes # (A) 2.1 k/uL (1.0-4.8); Lymphocytes % (A) 31 %; MCH 30.8 pg (25.0-35.0); MCHC 35.6 g/dL (31.0-37.0); MCV 86.5 fL (80.0-100.0); Monocytes # (A) 0.3 k/uL (0-1.0); Monocytes % (A) 5 %; Neutrophils % (A) 58 %; Platelet Count 203 k/uL (150-450); RBC 5.16 m/uL (4.30-5.90); RDW 14.8 % (11.5-15.5); WBC 6.8 k/uL (3.8-10.6)
[2021-05-04 08:42] LABS: Calcium 9.6 mg/dL (8.4-10.2); Potassium 4.1 mmol/L (3.5-5.1)
[2021-05-04] MEDS ORDERED: ASPIRIN 325 MG TAB PO SCH (09:00)
[2021-05-04] MEDS: ASPIRIN 81 MG PO SCH (09:12)
[2021-05-04] MEDS: TAMSULOSIN 0.4 MG CAP.ER.24H PO SCH ×2 (09:12→20:42)
[2021-05-04] MEDS: GABAPENTIN 400 MG CAP PO SCH ×3 (09:12→20:42)
[2021-05-04] MEDS: PARoxetine 20 MG TAB PO SCH (09:12)
[2021-05-04] MEDS: PENTOXIFYLLINE 400 MG TABLET.ER PO SCH ×3 (09:13→20:42)
[2021-05-04] MEDS: METOPROLOL SUCCINATE (ER) 50 MG TAB.ER.24H PO SCH (09:13)
[2021-05-04] MEDS: lisinopriL 10 MG TAB PO SCH ×2 (09:13→20:42)
[2021-05-04] MEDS: DOCUSATE 100 MG CAP PO SCH ×2 (09:13→20:41)
[2021-05-04] MEDS: amLODIPine 10 MG TAB PO SCH (09:13)
[2021-05-04] MEDS: TICAGRELOR 90 MG TAB PO SCH ×2 (09:13→20:42)
[2021-05-04] MEDS: cilostazoL 100 MG TAB PO SCH ×2 (09:13→20:42)
--- NOTE | 2021-05-04 13:17 | P.GSCN ---
History of Present Illness Consult date: 05/04/21 Reason for Consult: Symptomatic right internal carotid artery stenosis Requesting physician: Elly Becerra History of present illness: This is a 65-year-old male came to the hospital yesterday for possible stroke. Patient states on Friday night at 9 PM, he was laying in the couch. He tried to get up to go to his bed to sleep. However when he tried to get up, but he couldn't. His left arm and leg felt weak. He felt the left leg was giving out and felt off balance. He somehow made it to the bed, stayed there for half an hour, when felt better, then went to sleep. The next morning when he woke up, he continued to have some weakness of the left side. He did go for a walk and felt dizzy and off-balance. He is noticing difficulty grabbing things with his left hand. When he is walking, feels off balance, and the left leg feels weak. CT head showed age-related atrophic and chronic small vessel ischemic changes without acute intracranial process seen at this time. Chest x-ray showed no acute cardiopulmonary disease. EKG was sinus bradycardia with frequent in consecutive PVCs. Left axis deviation. CTA of the neck showed right ICA estimated diameter reduction of greater than 80%. Estimated diameter reduction left ICA of approximately 50%. CTA of [place] shows no significant abnormality. Patient's carotid Doppler from 12/07/2014 shows moderate right ICA stenosis of 50-69%. Patient's blood test shows normal CBC, PT/PTT, normal chem 20. BUN is 23, creatinine 1.42. Patient states he has borderline diabetes, Neuropathy, chronic kidney disease and hypertension. He has smoked 1 pack per day for 20 years, quit tobacco 26 years ago. He has coronary artery disease, CA with double bypass. He has 2 stents in the kidneys and left iliac artery stent done in 2014 Smokes marijuana. Patient states he has left-sided weakness since his first heart attack in 1992, however the last 2-3 days has been worse with feeling off balance. He denies any visual disturbance, difficulty with speaking or swallowing, and no altered mental status changes. He denies any chest pain, shortness of breath, abdominal pain, fever, or chills. Neurology is following patient, discontinued Plavix and changed to Brilinta, aspirin. Review of Systems A 14 point review of systems was completed all pertinent positives and negatives as stated in the HPI. Past Medical History Past Medical History: Coronary Artery Disease (CAD), Chest Pain / Angina, Hyperlipidemia, Hypertension, Myocardial Infarction ([place]) Additional Past Medical History / Comment(s): Peripheral vascular disease, renal artery stenosis with previous renal artery stenting, insomnia, headache, coronary artery disease, hyperlipidemia, hypertension, NEUROPATHY Last Myocardial Infarction Date:: 2014 History of Any Multi-Drug Resistant Organisms: None Reported Past Surgical History: Coronary Bypass/CABG, Heart Catheterization Additional Past Surgical History / Comment(s): Previous PTCA of the lower extremity with stenting,LT ILIAC ARTERY STENT 3--. bilateral renal artery stenting, balloon angioplasty of coronary artery, open heart surgery 02/2015 Past Anesthesia/Blood Transfusion Reactions: No Reported Reaction Past Psychological History: Anxiety, Depression Smoking Status: Never smoker Past Alcohol Use History: None Reported Past Drug Use History: Marijuana - Past Family History Brother(s) Family Medical History: Coronary Artery Disease (CAD), Diabetes Mellitus, Myocardial Infarction ([place]) Father Family Medical History: CVA/TIA, Myocardial Infarction ([place]) Additional Family Medical History / Comment(s): ANEURYSM Mother Family Medical History: CVA/TIA, Myocardial Infarction ([place]) Sister(s) Family Medical History: Cancer Additional Family Medical History / Comment(s): AT AGE 56 FROM [place] AND A SISTER AGE 55 ANEURYSM, AND SEVERAL SISTERS AND BROTHERS HAD CARDIAC HX(MIS) Medications and Allergies Home Medications Medication Instructions Recorded Confirmed Type Ntbrnivmns-PEO-Elkkycs-Codeine 1 tab PO DAILY 12/05/14 05/03/21 History [Fiorinal w/Cod 71-595-44-30MG] Cholecalciferol [Vitamin D3 (25 25 mcg PO DAILY 12/05/14 05/03/21 History Mcg = 1000 Iu)] Pentoxifylline [TRENtal] 400 mg PO TID 12/05/14 05/03/21 History Clopidogrel [Plavix] 75 mg PO HS 03/06/15 05/03/21 History Docusate [Colace] 100 mg PO BID 03/17/17 05/03/21 History Ferrous Sulfate [Iron] 325 mg PO DAILY 03/17/17 05/03/21 History Metoprolol Succinate (ER) [Toprol 50 mg PO DAILY 03/17/17 05/03/21 History XL] PARoxetine HCL [Paxil] 40 mg PO DAILY 03/17/17 05/03/21 History Sildenafil Citrate [Viagra] 50 mg PO ONCE PRN 03/17/17 05/03/21 History Tamsulosin HCl [Flomax] 0.4 mg PO BID 03/17/17 05/03/21 History lisinopriL [Zestril] 10 mg PO BID 03/17/17 05/03/21 History traZODone HCL [Desyrel] 50 mg PO HS 03/17/17 05/03/21 History Aspirin EC [Ecotrin Low Dose] 81 mg PO DAILY 05/03/21 05/03/21 History Atorvastatin [Lipitor] 40 mg PO HS 05/03/21 05/03/21 History Cilostazol [Pletal] 100 mg PO BID 05/03/21 05/03/21 History Gabapentin [Neurontin] 400 mg PO TID 05/03/21 05/03/21 History amLODIPine [Norvasc] 10 mg PO DAILY 05/03/21 05/03/21 History hydroCHLOROthiazide [Hydrodiuril] 25 mg PO DAILY 05/03/21 05/03/21 History Allergies Allergy/AdvReac Type Severity Reaction Status Date / Time No Known Allergies Allergy Verified 05/03/21 12:55 Surgical - Exam Vital Signs Temp Pulse Resp BP Pulse Ox 97.7 F 57 L 16 123/79 97 05/03/21 11:16 05/03/21 11:16 05/03/21 11:16 05/03/21 11:16 05/03/21 11:16 General appearance: The patient is alert, oriented, appears in no acute distress. HET: Head is normocephalic and atraumatic. Pupils are equal and reactive. Facial symmetry. Neck: Supple without lymphadenopathy. Trachea midline. No audible carotid bruit Heart: S1 S2. Regular rate and rhythm. Lungs: Clear to auscultation. Abdomen: Soft, nontender, nondistended. Extremities: Normal skin color and turgor. No cyanosis, rash, ulceration, clubbing, or edema. Palpable bilateral radial and pedal pulses. Neurological: Patient is alert and oriented 3, has facial symmetry, speech is fluent, he is able to follow commands and answers questions appropriately. There is minimal left-sided weakness compared to right, 4/5 both upper and lower extremity. Results - Labs 05/04/21 07:29 05/04/21 07:29 Abnormal Lab Results - Last 24 Hours (Table) 05/03/21 Range/Units 11:57 BUN 23 H (9-20) mg/dL Creatinine 1.42 H (0.66-1.25) mg/dL Glucose 134 H (74-99) mg/dL Diabetes panel 05/03/21 Range/Units 11:57 Sodium 138 (137-145) mmol/L Potassium 3.9 (3.5-5.1) mmol/L Chloride 106 (98-107) mmol/L Carbon Dioxide 25 (22-30) mmol/L BUN 23 H (9-20) mg/dL Creatinine 1.42 H (0.66-1.25) mg/dL Glucose 134 H (74-99) mg/dL Calcium 9.5 (8.4-10.2) mg/dL AST 26 (17-59) U/L ALT 12 (4-49) U/L Alkaline Phosphatase 68 (38-126) U/L Total Protein 7.5 (6.3-8.2) g/dL Albumin 4.2 (3.5-5.0) g/dL Calcium panel 05/03/21 Range/Units 11:57 Calcium 9.5 (8.4-10.2) mg/dL Albumin 4.2 (3.5-5.0) g/dL Pituitary panel 05/03/21 Range/Units 11:57 Sodium 138 (137-145) mmol/L Potassium 3.9 (3.5-5.1) mmol/L Chloride 106 (98-107) mmol/L Carbon Dioxide 25 (22-30) mmol/L BUN 23 H (9-20) mg/dL Creatinine 1.42 H (0.66-1.25) mg/dL Glucose 134 H (74-99) mg/dL Calcium 9.5 (8.4-10.2) mg/dL Adrenal panel 05/03/21 Range/Units 11:57 Sodium 138 (137-145) mmol/L Potassium 3.9 (3.5-5.1) mmol/L Chloride 106 (98-107) mmol/L Carbon Dioxide 25 (22-30) mmol/L BUN 23 H (9-20) mg/dL Creatinine 1.42 H (0.66-1.25) mg/dL Glucose 134 H (74-99) mg/dL Calcium 9.5 (8.4-10.2) mg/dL Total Bilirubin 0.4 (0.2-1.3) mg/dL AST 26 (17-59) U/L ALT 12 (4-49) U/L Alkaline Phosphatase 68 (38-126) U/L Total Protein 7.5 (6.3-8.2) g/dL Albumin 4.2 (3.5-5.0) g/dL Assessment and Plan Assessment: 1. Symptomatic right ICA stenosis 2. Left sided weakness 3. History of neuropathy 4. History of coronary artery disease status post bypass 5. History of chronic kidney disease 6. History of hypertension and hyperlipidemia 7. History of renal stents 8. History of peripheral vascular disease, status post left iliac artery stent 2013 9. Family history coronary artery disease and stroke Plan: 1. Carotid ultrasound ordered 2. CT angiogram head and neck reviewed showing greater than 80% right ICA stenosis 3. Agree with aspirin, Brilinta and statin 4. Recommend PT/OT 5. Further recommendations to follow Thank you for this consultation and allowing us take part in the plan of care of your patient during his hospital stay The impression and plan of care has been dictated as directed. Dr. Velez I performed a history and examination of this patient, discussed the same with the dictator. I agree with the dictator's note ,documented as a scribe. Any additional findings or plans will be noted.
--- NOTE | 2021-05-04 14:55 | US ---
EXAMINATION TYPE: US carotid duplex BILAT DATE OF EXAM: 05/04/2021 COMPARISON: CTA 2020, US 2014 CLINICAL HISTORY: left sided weakness. Exam done portable. EXAM MEASUREMENTS: RIGHT: Peak Systolic Velocity (PSV) cm/sec ----- Right CCA: 61.6 ----- Right ICA: 108.2 ----- Right ECA: 67.6 ICA/CCA ratio: 1.8 RIGHT: End Diastole cm/sec ----- Right CCA: 13.6 ----- Right ICA: 31.8 ----- Right ECA: 9.2 LEFT: Peak Systolic Velocity (PSV) cm/sec ----- Left CCA: 78.2 ----- Left ICA: 64.1 ----- Left ECA: 145.2 ICA/CCA ratio: 0.8 LEFT: End Diastole cm/sec ----- Left CCA: 18.3 ----- Left ICA: 15.5 ----- Left ECA: 21.1 VERTEBRALS (direction of flow): Right Vertebral: Antegrade Left Vertebral: Antegrade Rhythm: Arrhythmia Elevated velocity: left prox ECA, no significant stenosis. Grayscale, color Doppler, spectral Doppler imaging performed of the carotid arteries. Atheromatous changes present at the carotid bifurcations, distal common carotid arteries. Waveform analysis does not show significant stenosis of the proximal internal carotid arteries. IMPRESSION: No hemodynamic significant stenosis of the proximal internal carotid arteries by Doppler criteria, an indirect measurement of carotid stenosis Criteria for Assigning % of Stenosis / Diameter reduction (Estimation based on the indirect measurements of the internal carotid artery velocities (ICA PSV). 1. Normal (no stenosis)=ICA PSV < 125 cm/s: ratio < 2.0: ICA EDV<40 cm/s. 2. Less than 50% stenosis=ICA PSV < 125 cm/s: ratio < 2.0: ICA EDV<40 cm/s. 3. 50 to 69% stenosis=ICA PSV of 125 to 230 cm/s: ration 2.0 ? 4.0: ICA EDV 40-100 cm/s. 4. Greater than 70% stenosis to near occlusion= ICA PSV > 230 cm/s: ratio > 4.0: ICA EDV > 100 cm/s. 5. Near occlusion= ICA PSV velocities may be low or undetectable: variable ratio and ICA EDV. 6. Total occlusion=unable to detect flow.
--- NOTE | 2021-05-04 15:46 | P.PN ---
Subjective Progress Note Date: 05/04/21 Patient was seen for a follow-up. Denies any new symptoms. States feeling better. No headache. Objective - Vital Signs Vital signs: Vital Signs Temp 98.0 F 05/04/21 08:00 Pulse 85 05/04/21 08:00 Resp 20 05/04/21 08:00 BP 159/98 05/04/21 08:00 Pulse Ox 100 05/04/21 08:00 Intake & Output 05/03/21 05/04/21 05/04/21 18:59 06:59 18:59 Intake Total 240 360 Balance 240 360 Weight 81.193 kg 83.7 kg Intake: Oral 240 360 Other: # Voids 1 - Exam Patient's examination shows normal mental status, speech and language functions. Cranial nerves only significant for very mild left facial asymmetry. Visual dan are full. Muscle strength is essentially normal. Patient has mild ataxia for vqhvlb-cy-topc and ccnz-ma-yaag testing on the left side, better than yesterday. Sensations are intact. - Labs CBC & Chem 7: 05/04/21 07:29 05/04/21 07:29 Labs: Abnormal Lab Results - Last 24 Hours (Table) 05/04/21 Range/Units 07:29 Chloride 109 H (98-107) mmol/L BUN 21 H (9-20) mg/dL Creatinine 1.38 H (0.66-1.25) mg/dL Glucose 137 H (74-99) mg/dL Assessment and Plan Assessment: * Acute ischemic stroke with mild left ataxic hemiparesis, likely due to symptomatic right ICA stenosis. Symptoms much improved. * Right ICA stenosis > 80% per CTA. * Hypertension * Peripheral arterial disease * Coronary artery disease * History of renal artery stents * X tobacco use * Marijuana use Plan: * Await MRI of the brain evaluate for an acute stroke. * Patient has failed aspirin and Plavix regimen. He states he is fully compliant with the medication, does not miss the dose. We will switch from P lavix to Brilinta 90 mg twice a day. * Fasting a.m. lipid panel, hemoglobin A1c. * Vascular surgical consultation input appreciated. Patient to undergo carotid Doppler. * Avoid excessive hypotension. * Telemetry monitoring showing sinus rhythm, sinus bradycardia. No other arrhythmia. * Neurology will follow.
[2021-05-04 17:35] LABS: Hemoglobin A1C 5.5 % (4.0-6.0)
[2021-05-04 20:40] LABS: Chol/HDL Ratio 3.12; LDL Cholesterol,Calculated 73.6 mg/dL (0.0-131.0); VLDL Calculation 15.4 mg/dL (5.00-40.00)
[2021-05-04] MEDS: traZODone HCL 50 MG TAB PO SCH (20:42)
[2021-05-04] MEDS: ATORVASTATIN 40 MG TAB PO SCH (20:42)
[2021-05-05 08:07] LABS: Calcium 9.7 mg/dL (8.4-10.2)
[2021-05-05] MEDS: GABAPENTIN 400 MG CAP PO SCH ×3 (08:35→20:36)
[2021-05-05] MEDS: DOCUSATE 100 MG CAP PO SCH ×2 (08:35→20:37)
[2021-05-05] MEDS: ASPIRIN 81 MG PO SCH (08:35)
[2021-05-05] MEDS: amLODIPine 10 MG TAB PO SCH (08:36)
[2021-05-05] MEDS: lisinopriL 10 MG TAB PO SCH ×2 (08:36→20:37)
[2021-05-05] MEDS: TAMSULOSIN 0.4 MG CAP.ER.24H PO SCH ×2 (08:36→20:37)
[2021-05-05] MEDS: PENTOXIFYLLINE 400 MG TABLET.ER PO SCH ×3 (08:36→20:37)
[2021-05-05] MEDS: METOPROLOL SUCCINATE (ER) 50 MG TAB.ER.24H PO SCH (08:36)
[2021-05-05] MEDS: PARoxetine 20 MG TAB PO SCH (08:36)
[2021-05-05] MEDS: TICAGRELOR 90 MG TAB PO SCH ×2 (08:36→20:37)
[2021-05-05] MEDS: cilostazoL 100 MG TAB PO SCH ×2 (08:37→20:36)
[2021-05-05] MEDS: ATORVASTATIN 40 MG TAB PO SCH (20:37)
[2021-05-05] MEDS: traZODone HCL 50 MG TAB PO SCH (20:37)
[2021-05-06] MEDS: amLODIPine 10 MG TAB PO SCH (08:20)
[2021-05-06] MEDS: PARoxetine 20 MG TAB PO SCH (08:20)
[2021-05-06] MEDS: DOCUSATE 100 MG CAP PO SCH ×2 (08:20→20:10)
[2021-05-06] MEDS: ASPIRIN 81 MG PO SCH (08:20)
[2021-05-06] MEDS: TAMSULOSIN 0.4 MG CAP.ER.24H PO SCH ×2 (08:20→20:10)
[2021-05-06] MEDS: METOPROLOL SUCCINATE (ER) 50 MG TAB.ER.24H PO SCH (08:20)
[2021-05-06] MEDS: TICAGRELOR 90 MG TAB PO SCH ×2 (08:20→20:10)
[2021-05-06] MEDS: GABAPENTIN 400 MG CAP PO SCH ×3 (08:20→20:10)
[2021-05-06] MEDS: lisinopriL 10 MG TAB PO SCH ×2 (08:20→20:10)
[2021-05-06] MEDS: PENTOXIFYLLINE 400 MG TABLET.ER PO SCH ×3 (08:21→20:11)
[2021-05-06] MEDS: cilostazoL 100 MG TAB PO SCH ×2 (08:21→20:11)
--- NOTE | 2021-05-06 09:17 | P.PN ---
Subjective Progress Note Date: 05/05/21 05/05/2021: This is a Tele-neurology follow-up performed on the patient today on 05/05/2021. Patient states he is feeling better. No further stroke or TIA symptoms. Denies headache. Patient is laying comfortably in the bed. Objective - Vital Signs Vital signs: Vital Signs Temp 98.3 F 05/04/21 20:30 Pulse 76 05/05/21 12:00 Resp 16 05/05/21 12:00 BP 131/88 05/05/21 12:00 Pulse Ox 96 05/05/21 12:00 Intake & Output 05/04/21 05/05/21 05/05/21 18:59 06:59 18:59 Intake Total 640 600 Output Total 200 300 150 Balance 440 -300 450 Weight 77 kg Intake: Oral 640 600 Output: Urine 200 300 150 Other: # Voids 2 1 - Exam Patient's examination shows normal mental status, speech and language functions. Cranial nerves only significant for very mild left facial asymmetry. Visual dan are full. Patient has very mild left pronator drift. Muscle strength is essentially normal. Patient has mild ataxia for uqxfsr-jt-zxwu and moderate lnno-kx-nbnc testing only on the left side. Sensations are intact. - Labs CBC & Chem 7: 05/04/21 07:29 05/05/21 07:14 Labs: Abnormal Lab Results - Last 24 Hours (Table) 05/05/21 Range/Units 07:14 Chloride 108 H (98-107) mmol/L BUN 21 H (9-20) mg/dL Creatinine 1.39 H (0.66-1.25) mg/dL Glucose 136 H (74-99) mg/dL Assessment and Plan Assessment: * Probable acute ischemic stroke with mild left marley-ataxia. This is likely due to symptomatic right ICA stenosis. Symptoms much improved. * Right ICA stenosis > 80% per CTA. * Hypertension * Peripheral arterial disease * Coronary artery disease * History of renal artery stents * X tobacco use * Marijuana use Plan: * Await MRI of the brain evaluate for an acute stroke. Patient has renal stents, needs clearance before can proceed with the MRI. * Patient has failed aspirin and Plavix regimen. He states he is fully compliant with the medication, does not miss the dose. We will switch from Plavix to Brilinta 90 mg twice a day. * Fasting a.m. lipid panel with cholesterol 131, LDL 73, HDL 42 and triglycerides 77. Continue Lipitor 40 mg. * Hemoglobin A1c 5.5. * Carotid Doppler revealed no hemodynamic significant stenosis of the proximal ICA. Antegrade flow in both vertebral arteries. There is significant discrepancy between the report of carotid Doppler and CTA. * Avoid excessive hypotension. * Patient will be cleared for discharge when MRI has been completed. Apparently vascular surgery wishes to follow up patient in 2 weeks and consider right CEA as an outpatient.
--- NOTE | 2021-05-06 12:01 | P.PN ---
Subjective Progress Note Date: 05/06/21 Patient seen and examined. Overall feeling much better, still feels as though he is slower than normal. He is awaiting an MRI Objective - Vital Signs Vital signs: Vital Signs Temp 97.6 F 05/05/21 20:00 Pulse 81 05/06/21 08:00 Resp 16 05/06/21 08:00 BP 170/83 05/06/21 08:00 Pulse Ox 100 05/06/21 08:00 Intake & Output 05/05/21 05/06/21 05/06/21 18:59 06:59 18:59 Intake Total 1320 360 Output Total 150 300 Balance 1170 60 Weight 77 kg Intake: Oral 1320 360 Output: Urine 150 300 Other: # Voids 2 - Exam Gen. is pleasant cooperative male in no acute distress. HEENT is normocephalic, atraumatic, extraocular motion intact. Heart appears regular at this time. Lungs are clear bilaterally although diminished. Abdomen is soft, nontender and nondistended. Extremities show no clubbing, cyanosis or edema. Normal mood and affect. Cranial nerves II through XII appear grossly intact - Labs CBC & Chem 7: 05/04/21 07:29 05/05/21 07:14 Assessment and Plan Assessment: Symptomatic right internal carotid artery stenosis Plan: Computed tomography scan was reviewed, there is some degree of discordance between the imaging however the computed tomography scan appears accurate with the amount of calcification at the bifurcation. Patient awaiting MRI, per neurology they do believe it is a symptomatic carotid stenosis causing his issue and have changed him to different oral antiplatelet medications. Given his age and overall health he may benefit from a carotid endarterectomy versus a trans- carotid artery revascularization. We will follow-up with him as an outpatient within the next 1-2 weeks and discuss surgical options
--- NOTE | 2021-05-06 14:52 | P.PN ---
Subjective Progress Note Date: 05/06/21 05/06/2021: This is a Tele-neurology follow up performed on the patient today on 05/06/2021. Tele-medicine performed from 11 AM to 11:08 AM. Patient states he is feeling better. No further stroke or TIA symptoms. Denies headache. Patient is sitting in the recliner. Has been walking around. States that balance is improved. Objective - Vital Signs Vital signs: Vital Signs Temp 97.6 F 05/05/21 20:00 Pulse 81 05/06/21 08:00 Resp 16 05/06/21 08:00 BP 170/83 05/06/21 08:00 Pulse Ox 100 05/06/21 08:00 Intake & Output 05/05/21 05/06/21 05/06/21 18:59 06:59 18:59 Intake Total 1320 360 Output Total 150 300 Balance 1170 60 Weight 77 kg Intake: Oral 1320 360 Output: Urine 150 300 Other: # Voids 2 - Exam Patient's examination shows normal mental status, speech and language functions. Cranial nerves only significant for very mild left facial asymmetry. Visual dan are full. Patient has very mild left pronator drift. Muscle strength is essentially normal. Patient has mild ataxia for paadgh-iu-bdjb testing only on the left and moderate nexa-or-clct testing only on the left side. Sensations are intact. Patient able to walk better than yesterday. Yesterday he seems to be slightly off balance on the left. Still appears to be cautious gait. - Labs CBC & Chem 7: 05/04/21 07:29 05/05/21 07:14 Assessment and Plan Assessment: * Probable acute ischemic stroke with mild left marley-ataxia. This is likely due to symptomatic right ICA stenosis. Symptoms much improved. * Right ICA stenosis > 80% per CTA. * Hypertension * Peripheral arterial disease * Coronary artery disease * History of renal artery stents * X tobacco use * Marijuana use Plan: * Await MRI of the brain evaluate for an acute stroke. Patient has renal stents, needs clearance before can proceed with the MRI. * Patient has failed aspirin and Plavix regimen. He states he is fully compliant with the medication, does not miss the dose. We will switch from Plavix to Brilinta 90 mg twice a day. * Fasting a.m. lipid panel with cholesterol 131, LDL 73, HDL 42 and triglycerides 77. Continue Lipitor 40 mg. * Hemoglobin A1c 5.5. * Carotid Doppler revealed no hemodynamic significant stenosis of the proximal ICA. Antegrade flow in both vertebral arteries. There is significant discrepancy between the report of carotid Doppler and CTA. * Avoid excessive hypotension. * Apparently vascular surgery wishes to follow up patient in 2 weeks and con inner diameter grinder tool right CEA as an outpatient. * 2-D echo with bubble study to rule out embolic source. * If patient cannot have MRI, then he is clear for discharge.
[2021-05-06] MEDS: ATORVASTATIN 40 MG TAB PO SCH (20:10)
[2021-05-06] MEDS: traZODone HCL 50 MG TAB PO SCH (20:10)
[2021-05-07] MEDS: TICAGRELOR 90 MG TAB PO SCH (09:13)
[2021-05-07] MEDS: PARoxetine 20 MG TAB PO SCH (09:13)
[2021-05-07] MEDS: DOCUSATE 100 MG CAP PO SCH (09:13)
[2021-05-07] MEDS: PENTOXIFYLLINE 400 MG TABLET.ER PO SCH (09:13)
[2021-05-07] MEDS: amLODIPine 10 MG TAB PO SCH (09:13)
[2021-05-07] MEDS: TAMSULOSIN 0.4 MG CAP.ER.24H PO SCH (09:14)
[2021-05-07] MEDS: GABAPENTIN 400 MG CAP PO SCH (09:14)
[2021-05-07] MEDS: cilostazoL 100 MG TAB PO SCH (09:14)
[2021-05-07] MEDS: METOPROLOL SUCCINATE (ER) 50 MG TAB.ER.24H PO SCH (09:14)
[2021-05-07] MEDS: lisinopriL 10 MG TAB PO SCH (09:14)
[2021-05-07] MEDS: ASPIRIN 81 MG PO SCH (09:17)
[2021-05-07 09:40] VITALS: RESP 18
--- NOTE | 2021-05-07 09:48 | P.PN ---
Subjective Progress Note Date: 05/07/21 Patient was seen and examined, states he is feeling much better. States still has a little weakness in the left extremities. No other focal deficits. He is scheduled for bubble study today, MRI has been ordered however patient has previous stents and may not be compatible with MRI. Objective - Vital Signs Vital signs: Vital Signs Temp 97.7 F 05/07/21 03:32 Pulse 88 05/07/21 03:32 Resp 16 05/07/21 03:32 BP 152/82 05/07/21 03:32 Pulse Ox 100 05/07/21 03:32 Intake & Output 05/06/21 05/07/21 05/07/21 18:59 06:59 18:59 Intake Total 1620 150 240 Output Total 700 Balance 920 150 240 Weight 77 kg Intake: Oral 1620 150 240 Output: Urine 700 Other: Voiding Method Toilet # Voids 2 - Exam General appearance: The patient is alert, oriented, appears in no acute distress. HET: Head is normocephalic and atraumatic. Pupils are equal and reactive. Neck: Supple without lymphadenopathy. Trachea midline. Heart: S1 S2. Regular rate and rhythm. Lungs: Clear to auscultation. Abdomen: Soft, nontender, nondistended. Extremities: Normal skin color and turgor. No cyanosis, rash, ulceration, clubbing, or edema. . Neurological: No focal deficits. Cranial nerves II through XII appear grossly intact. - Labs CBC & Chem 7: 05/04/21 07:29 05/05/21 07:14 Assessment and Plan Assessment: 1. Symptomatic right ICA stenosis 2. Left sided weakness 3. History of neuropathy 4. History of coronary artery disease status post bypass 5. History of chronic kidney disease 6. History of hypertension and hyperlipidemia 7. History of renal stents 8. History of peripheral vascular disease, status post left iliac artery stent 2013 9. Family history coronary artery disease and stroke Plan: Patient awaiting MRI and bubble study. Patient is to follow-up with vascular surgery in the next 1-2 weeks to discuss surgical options including carotid endarterectomy versus trans-carotid artery revascularization. Patient agreeable to plan of care. Patient is cleared for discharge from vascular surgery. The impression and plan of care has been dictated as directed. I performed a history and examination of this patient, discussed the same with the dictator. I agree with the dictator's note ,documented as a scribe. Any additional findings or plans will be noted.
--- NOTE | 2021-05-07 11:47 | P.PN ---
Subjective Progress Note Date: 05/04/21 Principal diagnosis: Acute CVA with left-sided weakness with ataxic gait Patient is a 65-year-old male with a known history of coronary artery disease with history of CABG, peripheral vascular disease, hypertension, hyperlipidemia, history of [place], anxiety/depression and occasional marijuana use presents to ER with complaints of left-sided weakness. Patient states that about 2 days back on Friday patient was trying to get out of bed at around 9 PM and could not get himself up and also he noticed having left-sided weakness. Also is having facial droop and slurred speech. Patient did not come to ER immediately. He has been walking with walker about half a mile daily. Patient states that he's been wobbly with walking. Denied any blurred vision or diplopia. Due to the symptoms not getting better patient presented to ER for evaluation. Denied any headache but mild dizziness. No complains of chest pain. No palpitations. Denied any leg swelling. In the ER blood pressure was 123/79 pulse 57 respiration 18 98% on room air and afebrile. CT head showed is related atrophic and chronic small vessel ischemic changes without acute intracranial process. Chest x-ray showed no acute cardio pulmonary process EKG showed sinus bradycardia with heart rate [address] angiography of the head and neck showed right ICA estimated diameter reduction of greater than 80%. Estimated diameter reduction left ICA up approximately 50%. CTA headand abnormality. Laboratory data showed WBC 5.1 hemoglobin 14.4 and platelets 213, BUN 23 and creatinine 1.42 05/04/2021 Patient feels better today. No complaints of left-sided weakness. No headache or dizziness or light tenderness. Vascular surgery has seen the patient and due to right ICA stenosis. Plan for surgery early next week. MRI of the head is pending. current medications reviewed. Objective - Vital Signs Vital signs: Vital Signs Temp 98.1 F 05/04/21 16:00 Pulse 87 05/04/21 16:00 Resp 20 05/04/21 16:00 BP 166/77 05/04/21 16:00 Pulse Ox 99 05/04/21 16:00 Intake & Output 05/04/21 05/04/21 05/05/21 06:59 18:59 06:59 Intake Total 640 Output Total 200 Balance 440 Weight 83.7 kg Intake: Oral 640 Output: Urine 200 Other: # Voids 1 2 - Exam PHYSICAL EXAMINATION: Patient is lying in the bed comfortably, no acute distress, awake alert and oriented.. HEENT: Normocephalic. Neck is supple. Pupils reactive. Nostrils clear. Oral cavity is moist. Neck reveals no JVD, carotid bruits, or thyromegaly. CHEST EXAMINATION: Trachea is central. Symmetrical expansion. Lung dan clear to auscultation and percussion. CARDIAC: Normal S1, S2 with no gallops. No murmurs ABDOMEN: Soft. Bowel sounds normal. No organomegaly. No abdominal bruits. Extremities: reveal no edema. No clubbing or cyanosis Neurologically awake, alert, oriented x3 with well-coordinated movements. No focal deficits noted Skin: No rash or skin lesions. Psychiatric: Coperative. Nonsuicidal Musculoskeletal: No joint swelling or deformity. Normal range of motion. - Labs CBC & Chem 7: 05/04/21 07:29 05/05/21 07:14 Labs: Abnormal Lab Results - Last 24 Hours (Table) 05/04/21 Range/Units 07:29 Chloride 109 H (98-107) mmol/L BUN 21 H (9-20) mg/dL Creatinine 1.38 H (0.66-1.25) mg/dL Glucose 137 H (74-99) mg/dL Assessment and Plan Assessment: Acute CVA with left-sided weakness with ataxic gait. Improved now. Right ICA greater than 80% stenosis. Hypertension Coronary artery disease with history of stent placement Severe peripheral vascular disease History of renal artery stent Chronic kidney disease stage III history of smoking and marijuana use DVT prophylaxis. Plan: Patient will be continued on telemetry monitoring. Currently on aspirin Plavix. Neurology has seen the patient and recommended to continue aspirin and change Plavix to Brillinta. Patient was seen by vascular surgery due to greater than 80% right ICA stenosis. Continue with home blood pressure medications and follow up closely. Neurology is on board. MRI of the brain was ordered. Time with Patient: Greater than 30
--- NOTE | 2021-05-07 11:50 | P.PN ---
Subjective Progress Note Date: 05/05/21 Principal diagnosis: Acute CVA with left-sided weakness with ataxic gait Patient is a 65-year-old male with a known history of coronary artery disease with history of CABG, peripheral vascular disease, hypertension, hyperlipidemia, history of [place], anxiety/depression and occasional marijuana use presents to ER with complaints of left-sided weakness. Patient states that about 2 days back on Friday patient was trying to get out of bed at around 9 PM and could not get himself up and also he noticed having left-sided weakness. Also is having facial droop and slurred speech. Patient did not come to ER immediately. He has been walking with walker about half a mile daily. Patient states that he's been wobbly with walking. Denied any blurred vision or diplopia. Due to the symptoms not getting better patient presented to ER for evaluation. Denied any headache but mild dizziness. No complains of chest pain. No palpitations. Denied any leg swelling. In the ER blood pressure was 123/79 pulse 57 respiration 18 98% on room air and afebrile. CT head showed is related atrophic and chronic small vessel ischemic changes without acute intracranial process. Chest x-ray showed no acute cardio pulmonary process EKG showed sinus bradycardia with heart rate [address] angiography of the head and neck showed right ICA estimated diameter reduction of greater than 80%. Estimated diameter reduction left ICA up approximately 50%. CTA headand abnormality. Laboratory data showed WBC 5.1 hemoglobin 14.4 and platelets 213, BUN 23 and creatinine 1.42 05/04/2021 Patient feels better today. No complaints of left-sided weakness. No headache or dizziness or light tenderness. Vascular surgery has seen the patient and due to right ICA stenosis. Plan for surgery early next week. MRI of the head is pending. 05/05/2021 Patient is currently resting in the bed comfortably. Awake alert and oriented 3. Left-sided weakness is back to baseline. No complaint of headache or dizziness like tightness. MRI of the brain is pending. Carotid Duplex showed no significant hemodynamic significant stenosis of the proximal internal carotid artery. There is significant discrepancy between the report of carotid duplex and CTA. Neurology and basilar surgery is on board. current medications reviewed. Objective - Vital Signs Vital signs: Vital Signs Temp 97.6 F 05/05/21 20:00 Pulse 80 05/05/21 22:18 Resp 16 05/05/21 22:18 BP 125/84 05/05/21 22:18 Pulse Ox 100 05/05/21 22:18 Intake & Output 05/05/21 05/05/21 05/06/21 06:59 18:59 06:59 Intake Total 1320 Output Total 300 150 Balance -300 1170 Weight 77 kg Intake: Oral 1320 Output: Urine 300 150 Other: # Voids 1 - Exam PHYSICAL EXAMINATION: Patient is lying in the bed comfortably, no acute distress, awake alert and oriented.. HEENT: Normocephalic. Neck is supple. Pupils reactive. Nostrils clear. Oral cavity is moist. Neck reveals no JVD, carotid bruits, or thyromegaly. CHEST EXAMINATION: Trachea is central. Symmetrical expansion. Lung dan clear to auscultation and percussion. CARDIAC: Normal S1, S2 with no gallops. No murmurs ABDOMEN: Soft. Bowel sounds normal. No organomegaly. No abdominal bruits. Extremities: reveal no edema. No clubbing or cyanosis Neurologically awake, alert, oriented x3 with well-coordinated movements. No focal deficits noted Skin: No rash or skin lesions. Psychiatric: Coperative. Nonsuicidal Musculoskeletal: No joint swelling or deformity. Normal range of motion. - Labs CBC & Chem 7: 05/04/21 07:29 05/05/21 07:14 Labs: Abnormal Lab Results - Last 24 Hours (Table) 05/05/21 Range/Units 07:14 Chloride 108 H (98-107) mmol/L BUN 21 H (9-20) mg/dL Creatinine 1.39 H (0.66-1.25) mg/dL Glucose 136 H (74-99) mg/dL Assessment and Plan Assessment: Possible Acute CVA with left-sided weakness with ataxic gait. Improved now. Likely due to symptomatic right ICA stenosis. Right ICA greater than 80% stenosis. Hypertension Coronary artery disease with history of stent placement Severe peripheral vascular disease History of renal artery stent Chronic kidney disease stage III history of smoking and marijuana use DVT prophylaxis. Plan: Patient will be continued on telemetry monitoring. Currently on aspirin Plavix. Neurology has seen the patient and recommended to continue aspirin and change Plavix to Brillinta. Patient was seen by vascular surgery due to greater than 80% right ICA stenosis. Continue with home blood pressure medications and follow up closely. Neurology is on board. MRI of the brain was ordered. Time with Patient: Greater than 30
--- NOTE | 2021-05-07 11:52 | P.PN ---
Subjective Progress Note Date: 05/06/21 Principal diagnosis: Acute CVA with left-sided weakness with ataxic gait Patient is a 65-year-old male with a known history of coronary artery disease with history of CABG, peripheral vascular disease, hypertension, hyperlipidemia, history of [place], anxiety/depression and occasional marijuana use presents to ER with complaints of left-sided weakness. Patient states that about 2 days back on Friday patient was trying to get out of bed at around 9 PM and could not get himself up and also he noticed having left-sided weakness. Also is having facial droop and slurred speech. Patient did not come to ER immediately. He has been walking with walker about half a mile daily. Patient states that he's been wobbly with walking. Denied any blurred vision or diplopia. Due to the symptoms not getting better patient presented to ER for evaluation. Denied any headache but mild dizziness. No complains of chest pain. No palpitations. Denied any leg swelling. In the ER blood pressure was 123/79 pulse 57 respiration 18 98% on room air and afebrile. CT head showed is related atrophic and chronic small vessel ischemic changes without acute intracranial process. Chest x-ray showed no acute cardio pulmonary process EKG showed sinus bradycardia with heart rate [address] angiography of the head and neck showed right ICA estimated diameter reduction of greater than 80%. Estimated diameter reduction left ICA up approximately 50%. CTA headand abnormality. Laboratory data showed WBC 5.1 hemoglobin 14.4 and platelets 213, BUN 23 and creatinine 1.42 05/04/2021 Patient feels better today. No complaints of left-sided weakness. No headache or dizziness or light tenderness. Vascular surgery has seen the patient and due to right ICA stenosis. Plan for surgery early next week. MRI of the head is pending. 05/05/2021 Patient is currently resting in the bed comfortably. Awake alert and oriented 3. Left-sided weakness is back to baseline. No complaint of headache or dizziness like tightness. MRI of the brain is pending. Carotid Duplex showed no significant hemodynamic significant stenosis of the proximal internal carotid artery. There is significant discrepancy between the report of carotid duplex and CTA. Neurology and basilar surgery is on board. 05/06/2021 Patient is currently awake alert and oriented 3. No complaints of headache or dizziness or light headedness. Awaiting MRI and clearance due to history of renal artery stents placement. Basilar surgery is on board. CT angiogram showed greater than 80% right ICA stenosis which is more accurate compared to ultrasound. Planning for carotid endarterectomy versus transcatheter carotid artery revascularization. Follow-up as an outpatient in 1-2 weeks. No compressive fever or chills. No chest pain or shortness of breath. MRI to be completed prior to discharge. current medications reviewed. Objective - Vital Signs Vital signs: Vital Signs Temp 97.6 F 05/05/21 20:00 Pulse 100 05/06/21 12:00 Resp 16 05/06/21 12:00 BP 114/80 05/06/21 12:00 Pulse Ox 97 05/06/21 12:00 Intake & Output 05/05/21 05/06/21 05/06/21 18:59 06:59 18:59 Intake Total 1320 1140 Output Total 150 700 Balance 1170 440 Weight 77 kg Intake: Oral 1320 1140 Output: Urine 150 700 Other: # Voids 2 - Exam PHYSICAL EXAMINATION: Patient is lying in the bed comfortably, no acute distress, awake alert and oriented.. HEENT: Normocephalic. Neck is supple. Pupils reactive. Nostrils clear. Oral cavity is moist. Neck reveals no JVD, carotid bruits, or thyromegaly. CHEST EXAMINATION: Trachea is central. Symmetrical expansion. Lung dan clear to auscultation and percussion. CARDIAC: Normal S1, S2 with no gallops. No murmurs ABDOMEN: Soft. Bowel sounds normal. No organomegaly. No abdominal bruits. Extremities: reveal no edema. No clubbing or cyanosis Neurologically awake, alert, oriented x3 with well-coordinated movements. No focal deficits noted Skin: No rash or skin lesions. Psychiatric: Coperative. Nonsuicidal Musculoskeletal: No joint swelling or deformity. Normal range of motion. - Labs CBC & Chem 7: 05/04/21 07:29 05/05/21 07:14 Assessment and Plan Assessment: Possible Acute CVA with left-sided weakness with ataxic gait. Improved now. Likely due to symptomatic right ICA stenosis. Right ICA greater than 80% stenosis. Hypertension Coronary artery disease with history of stent placement Severe peripheral vascular disease History of renal artery stent Chronic kidney disease stage III history of smoking and marijuana use DVT prophylaxis. Plan: Patient will be continued on telemetry monitoring. Currently on aspirin Plavix. Neurology has seen the patient and recommended to continue aspirin and change Plavix to Brillinta. Patient was seen by vascular surgery due to greater than 80% right ICA stenosis. Planning for carotid endarterectomy versus revascularization in 1 week. Continue with home blood pressure medications and follow up closely. Neurology is on board. MRI of the brain was ordered. Time with Patient: Greater than 30
[2021-05-07 12:24] VITALS: BP 135/79; PULSE 91; TEMP 98.2
--- NOTE | 2021-05-07 12:42 | ECHOF ---
Referral Reason:CVA MEASUREMENTS -------- HEIGHT: 170.2 cm WEIGHT: 76.7 kg BP: 152/82 IVSd: 1.1 cm (0.6 - 1.1) LVIDd: 4.3 cm (3.9 - 5.3) LVPWd: 1.3 cm (0.6 - 1.1) EDV(Teich): 81 ml IVSs: 1.9 cm LVIDs: 2.4 cm LVPWs: 1.5 cm %IVS Thck: 73 % ESV(Teich): 19 ml EF(Teich): 76 % %FS: 45 % SV(Teich): 62 ml RVIDd: 3.2 cm (< 3.3) LALs A4C: 4.0 cm LAAs A4C: 10.7 cm LAESV A-L A4C: 24 ml LAESV MOD A4C: 23 ml LALs A2C: 4.2 cm LAAs A2C: 13.0 cm LAESV A-L A2C: 34 ml LAESV MOD A2C: 31 ml LAESV(A-L): 29 ml LAESV Index (A-L): 15.46 ml/m Ao Diam: 3.4 cm (2.0 - 3.7) LA Diam: 3.0 cm (2.7 - 3.8) AV Cusp: 2.2 cm (1.5 - 2.6) EPSS: 1.1 cm MV E Arun: 0.56 m/s MV DecT: 125 ms MV Dec Gibson: 4.5 m/s MV A Arun: 0.87 m/s MV E/A Ratio: 0.65 MV PHT: 36 ms MR Vmax: 0.90 m/s MR maxP.27 mmHg AV Vmax: 0.99 m/s AV maxP.92 mmHg TR Vmax: 1.26 m/s TR maxP.33 mmHg RAP: 5.00 mmHg RVSP: 11.33 mmHg MV EF SLOPE: 35.71 mm/s (70 - 150) MV EXCURSION: 7.38 mm (> 18.000) FINDINGS -------- This was a technically difficult study with suboptimal views. The left ventricular size is normal. There is mild concentric left ventricular hypertrophy. Overa ll left ventricular systolic function is mild-moderately impaired with, an EF between 40 - 45 %. No rmal LAP Grade 1 Diastolic Dysfunction. Basal inferior LV wall motion is hypokinetic. Basal infe roseptal LV wall motion is hypokinetic. Mid inferior LV wall motion is hypokinetic. Basal infer olateral hypokinesis. The right ventricle is normal in size. The left atrial size is normal. Normal LA size by volume 22+/-6 ml/m2. The right atrial size is normal. Contrast study was performed with 2 iv injections of 8 ccs of agitated normal saline, at rest, and wi th cough. Lumason used Interatrial and interventricular septum intact. The aortic valve is trileaflet and appears structurally normal. The mitral valve is normal. There is trace mitral regurgitation. The tricuspid valve appears structurally normal. Trace tricuspid regurgitation present. Right ronan tricular systolic pressure is normal at < 35 mmHg. There is no pulmonic regurgitation present. The aortic root size is normal. IVC Not well visulized. There is no pericardial effusion. CONCLUSIONS -------- 1. The left ventricular size is normal. 2. There is mild concentric left ventricular hypertrophy. 3. Overall left ventricular systolic function is mild-moderately impaired with, an EF between 40 - 45 %. 4. Normal LAP Grade 1 Diastolic Dysfunction. 5. Basal inferior LV wall motion is hypokinetic. 6. Basal inferoseptal LV wall motion is hypokinetic. 7. Mid inferior LV wall motion is hypokinetic. 8. Basal inferolateral hypokinesis. 9. Contrast study was performed with 2 iv injections of 8 ccs of agitated normal saline, at rest, and with cough. 10. Interatrial and interventricular septum intact. 11. There is trace mitral regurgitation. 12. Trace tricuspid regurgitation present. 13. There is no pericardial effusion. RECREATIONAL VEHICLE REPAIRER: Gabbie Treviño RDCS
--- NOTE | 2021-05-07 16:26 | P.PN ---
Subjective Progress Note Date: 05/07/21 I am seeing the patient for the first time for neurological management. Please refer to Dr. Becerra for further details. Per his nurse cannot get clearance to get MRI Brain. Patient stated he is doing drastically better compared to his initial presentation. He stated he initially had gait unsteadiness on presentation but much better. Denies any new focal deficits. Objective - Vital Signs Vital signs: Vital Signs Temp 98.2 F 05/07/21 13:00 Pulse 91 05/07/21 13:25 Resp 18 05/07/21 13:25 BP 135/79 05/07/21 12:00 Pulse Ox 98 05/07/21 13:00 Intake & Output 05/06/21 05/07/21 05/07/21 18:59 06:59 18:59 Intake Total 1620 150 420 Output Total 700 Balance 920 150 420 Weight 77 kg Intake: Oral 1620 150 420 Output: Urine 700 Other: Voiding Method Toilet Toilet # Voids 2 - Exam GENERAL: The patient is lying in sitting at side of bed and is not in acute distress. NEUROLOGICAL: Higher mental function: The patient is awake, alert, oriented to self, place and time. Patient is following commands. No aphasia and no neglect. Cranial nerves: The pupils are round, equal and reactive to light and accommodation. Visual dan are full to confrontation throughout. Extraocular movement is intact no nystagmus is noted. Facial sensation is normal to touch throughout. The facial strength is normal throughout. No dysarthria is noted. Motor: Gait is normal with normal arms swings. The strength is in uppers are 4+ to 5- bilaterally while lowers are 5 over 5 throughout. Normal tone and bulk. Cerebellum: Normal finger to nose bilaterally. Sensation: Sensation is normal to touch throughout. - Labs CBC & Chem 7: 05/04/21 07:29 05/05/21 07:14 Assessment and Plan Assessment: * Probable acute ischemic stroke with mild left marley-ataxia. This is likely due to symptomatic right ICA stenosis. Symptoms much improved. * Right ICA stenosis > 80% per CTA. * Hypertension * Peripheral arterial disease * Coronary artery disease * History of renal artery stents * X tobacco use * Marijuana use Plan: * Unable to get clearance for MRI of the brain (since has renal stents). * Patient has failed aspirin and Plavix regimen. He states he is fully compliant with the medication, does not miss the dose. Was switched from Plavix to Brilinta 90 mg twice a day. * Fasting a.m. lipid panel with cholesterol 131, LDL 73, HDL 42 and triglycerides 77. Continue Lipitor 40 mg. * Hemoglobin A1c 5.5. * Carotid Doppler revealed no hemodynamic significant stenosis of the proximal ICA. Antegrade flow in both vertebral arteries. There is significant discrepancy between the report of carotid Doppler and CTA. * Avoid excessive hypotension. * Apparently vascular surgery wishes to follow up patient in 2 weeks and consi andrew right CEA as an outpatient. * 2-D echo with bubble study: Was reported as mild concentric left ventricular hypertrophy. Left ventricular systolic functional is mild to moderately impaired with ejection fraction of 40-45%. Left ventricle wall motion is hypokinetic at different region in the inferior, inferior septal, mid inferior left ventricular wall and basal inferior lateral. Contrast study was performed and the the intra-arterial and intraventricular septum is intact. * Recommend for patient to follow-up with a neurologist as outpatient within 1-2 weeks. He was notified to attempt to get MRI Brain as outpatient after following-up with Neurologist. * Also he needs to follow-up with vascular surgery team as outpatient. The patient is clear from neurological stand point. Praneeth Dotson MD Neuro-Hospitalist Time with Patient: Less than 30
== END 2021-05-07 16:13 | disposition home or self-care (01) | DRG 62 ==
LOC: EC 11:03 → 3SCARD 13:35
PROVIDERS: ADMIT Internal Medicine; ATTEND Internal Medicine
DX: I63.231 Cerebral infarction due to unspecified occlusion or stenosis of right carotid arteries (principal); G81.94 Hemiplegia, unspecified affecting left nondominant side; E78.00 Pure hypercholesterolemia, unspecified; E78.5 Hyperlipidemia, unspecified; F32.9 Major depressive disorder, single episode, unspecified; F41.9 Anxiety disorder, unspecified; I12.9 Hypertensive chronic kidney disease with stage 1 through stage 4 chronic kidney disease, or unspecified chronic kidney disease; I25.10 Atherosclerotic heart disease of native coronary artery without angina pectoris; I25.2 Old myocardial infarction; N18.30 Chronic kidney disease, stage 3 unspecified; R29.810 Facial weakness; Z79.02 Long term (current) use of antithrombotics/antiplatelets; Z79.82 Long term (current) use of aspirin; Z79.899 Other long term (current) drug therapy; Z82.3 Family history of stroke; Z82.49 Family history of ischemic heart disease and other diseases of the circulatory system; Z83.3 Family history of diabetes mellitus; Z87.891 Personal history of nicotine dependence; Z95.1 Presence of aortocoronary bypass graft; Z95.5 Presence of coronary angioplasty implant and graft; F12.90 Cannabis use, unspecified, uncomplicated; I70.1 Atherosclerosis of renal artery; R27.0 Ataxia, unspecified
CPT/HCPCS: 36415; 70450; 70496; 70498; 71046; 80048; 80053; 80061; 83036; 84484; 85025; 85610; 85730; 93005; 93306; 93880; 99285

== ENCOUNTER → 2021-06-05 | Outpatient (CLI) | payer OTHER ==
--- NOTE | 2021-06-05 18:32 | US ---
EXAMINATION TYPE: US kidneys/renal and bladder DATE OF EXAM: 06/05/2021 COMPARISON: 12/09/2017 CLINICAL HISTORY: 65-year-old male R94.4 ABN KIDNEY FUNCTIONS. Abnormal renal function/ pt states his tory of left renal stent in place since 2016 TECHNIQUE: Multiple sonographic images of the kidneys and bladder are obtained. FINDINGS: EXAM MEASUREMENTS: Right Kidney: 10.2 x 5.9 x 5.8 cm Left Kidney: 7.0 x 3.9 x 3.5 cm Right Kidney: Hypoechoic lesion lower pole= 2.6 x 2.0 x 2.5 cm/ hypoechoic lesion mid pole= 1.7 x 1.6 x 1.4 cm. These may represent cysts with internal echoes measuring artifactual or representing debri s. As these were not seen on the 2018 exam, 3 month follow-up is recommended to reassess. No hydronep hrosis. Left Kidney: Lobulated contour and small in size as visualized on prior, probable stent visualized me dial. No hydronephrosis. Bladder: wnl Bilateral Jets seen: Only right jet visualized IMPRESSION: 1. A couple hypoechoic lesions within the right kidney measuring 2.6 cm and 1.7 cm not clearly seen i n 2018. Cysts are suspected with internal echoes that could be artifactual or could represent debris. Recommend three-month follow-up ultrasound to reassess and exclude the possibility of solid masses. 2. Linear echoes centrally located medial aspect of the left kidney. Query any indwelling ureteral st ent. 3. No hydronephrosis seen on either side.
== END | disposition home or self-care (01) ==
LOC: RADUSWWP 14:49
DX: N28.9 Disorder of kidney and ureter, unspecified (principal)
CPT/HCPCS: 76770

== ENCOUNTER → 2021-06-26 | Outpatient (CLI) | payer OTHER ==
[2021-06-26 15:59] LABS: Basophils # (A) 0.1 k/uL (0-0.2); Basophils % (A) 1 %; Eosinophils # (A) 0.3 k/uL (0-0.7); Eosinophils % (A) 6 %; HCT 39.8 % (39.0-53.0); HGB 13.4 gm/dL (13.0-17.5); Lymphocytes # (A) 1.8 k/uL (1.0-4.8); Lymphocytes % (A) 37 %; MCH 29.8 pg (25.0-35.0); MCHC 33.7 g/dL (31.0-37.0); MCV 88.4 fL (80.0-100.0); Mean Platelet Volume 8.3; Monocytes # (A) 0.2 k/uL (0-1.0); Monocytes % (A) 4 %; Neutrophils # (A) 2.4 k/uL (1.3-7.7); Neutrophils % (A) 50 %; Platelet Count 220 k/uL (150-450); RDW 13.9 % (11.5-15.5); WBC 4.9 k/uL (3.8-10.6)
[2021-06-26 16:18] LABS: Potassium 3.8 mmol/L (3.5-5.1)
== END | disposition home or self-care (01) ==
LOC: LABPAT 15:43
PROVIDERS: ATTEND Surgery
DX: Z01.812 Encounter for preprocedural laboratory examination (principal); I65.21 Occlusion and stenosis of right carotid artery
CPT/HCPCS: 36415; 80051; 82565; 84520; 85025

== ENCOUNTER 2021-07-05 07:11 | Inpatient (IN) | payer OTHER ==
[2021-07-04 13:22] VITALS: BMI 27.2
[~2021-07-05 07:11] MED LIST: DEXAMETHASONE SOD PHOSPHATE 4 MG/ML 1 ML VIAL IV ONE; HYDROmorphone 0.5 MG/0.5 ML SYRINGE IVP PRN; LIDOCAINE 1% (10MG/ML) FOR IV START INTRADERMA PRN; MIDAZOLAM 2 MG/2 ML VIAL IV PRN; NITROGLYCERIN-D5W PMX 50 MG in DEXTROSE/WATER 1 250ML.BAG IV SCH; ONDANSETRON 4 MG/2 ML VIAL IVP ONE
[2021-07-05] MEDS: LACTATED RINGERS 1,000 ML IV SCH (08:13)
[2021-07-05] MEDS ORDERED: ePHEDrine 50 MG/ML 1 ML AMP ONE (09:15)
[2021-07-05] MEDS ORDERED: PROTAMINE SULFATE 10 MG/ML 5 ML VIAL IV ONE (09:15)
[2021-07-05] MEDS ORDERED: LIDOCAINE 1% INJ 10MG/ML (20 ML MDV) ONE (09:15)
[2021-07-05] MEDS ORDERED: GLYCOPYRROLATE 0.2 MG/ML 2 ML VIAL ONE (09:15)
[2021-07-05] MEDS ORDERED: ROCURONIUM 10 MG/ML (5 ML VIAL) IV ONE (09:15)
[2021-07-05] MEDS ORDERED: LABETALOL 5 MG/ML VIAL MDV ONE (09:15)
[2021-07-05] MEDS ORDERED: HEPARIN SODIUM,PORCINE 5,000 UNIT/ML 1 ML VIAL ONE (09:15)
[2021-07-05] MEDS ORDERED: PHENYLEPHRINE-0.9% NACL SYG 1,000 MCG/10 ML SYRINGE ONE (09:15)
[2021-07-05] MEDS ORDERED: PROPOFOL 10 MG/ML 20 ML VIAL IV ONE (09:15)
[2021-07-05] MEDS ORDERED: MIDAZOLAM 2 MG/2 ML VIAL ONE (09:15)
[2021-07-05] MEDS ORDERED: NEOSTIGMINE 1 MG/ML 10 ML VIAL ONE (09:15)
[2021-07-05] MEDS ORDERED: fentaNYL (PF) 50 MCG/ML 2 ML AMP ONE (09:15)
[2021-07-05] MEDS ORDERED: NITROGLYCERIN-D5W PMX 50 MG/250 ML BOTTLE IV ONE (09:15)
[2021-07-05] MEDS ORDERED: SUCCINYLCHOLINE CHLORIDE 100 MG/5 ML SYR IV ONE (09:15)
--- NOTE | 2021-07-05 09:31 | P.HPIHPCON ---
History of Present Illness H&P Date: 07/05/21 Michael is a 65 year old male with a revent history of a symtomatic MIRIAM stenosis. He was worked up and evaluated and found to be a candidate for right carotid endarterectomy and patch angioplasty. He underwent cardiac clearance. Risks and benefits were discussed. He seems understands and is willing to proceed as such Consent for Procedure: I have explained the operation/procedure to the patient, including the risks, benefits, side effects, alternative therapies (including not receiving the proposed treatment or service), the likelihood of the patient achieving his/her goals, and potential recuperation problems for the procedure/sedation/analgesia, as well as any blood products, if indicated. I also explained to the patient the risks, benefits and side effects of the alternatives, as well as the risks related to not receiving the proposed procedure, care, treatment, or services. 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 bilateral renal artery stenting, balloon angioplasty of coronary artery, open heart surgery 02/2015-double bypass Past Anesthesia/Blood Transfusion Reactions: No Reported Reaction Smoking Status: Former smoker - Past Family History Brother(s) Family Medical History: Myocardial Infarction (OR) Father Family Medical History: CVA/TIA, Myocardial Infarction (OR) Additional Family Medical History / Comment(s): ANEURYSM Mother Family Medical History: CVA/TIA, Deep Vein Thrombosis (DVT), Myocardial Infarction (OR) Sister(s) Family Medical History: Cancer, Myocardial Infarction ([place]) Additional Family Medical History / Comment(s): 3 sisters- [place] Medications and Allergies Home Medications Medication Instructions Recorded Confirmed Type Cholecalciferol [Vitamin D3 (25 25 mcg PO DAILY 12/05/14 07/04/21 History Mcg = 1000 Iu)] Pentoxifylline [TRENtal] 400 mg PO TID 12/05/14 07/04/21 History Docusate [Colace] 100 mg PO BID 03/17/17 07/04/21 History Ferrous Sulfate [Iron] 325 mg PO DAILY 03/17/17 07/04/21 History Metoprolol Succinate (ER) [Toprol 50 mg PO HS 03/17/17 07/04/21 History XL] PARoxetine HCL [Paxil] 40 mg PO DAILY 03/17/17 07/04/21 History Sildenafil Citrate [Viagra] 50 mg PO DIRECTED PRN 03/17/17 07/04/21 History lisinopriL [Zestril] 10 mg PO BID 03/17/17 07/04/21 History traZODone HCL [Desyrel] 50 mg PO HS 03/17/17 07/04/21 History Aspirin EC [Ecotrin Low Dose] 81 mg PO DAILY 05/03/21 07/04/21 History Atorvastatin [Lipitor] 40 mg PO HS 05/03/21 07/04/21 History Cilostazol [Pletal] 100 mg PO BID 05/03/21 07/04/21 History Gabapentin [Neurontin] 400 mg PO TID 05/03/21 07/04/21 History amLODIPine [Norvasc] 10 mg PO PC-LUNCH 05/03/21 07/04/21 History hydroCHLOROthiazide [Hydrodiuril] 25 mg PO DAILY 05/03/21 07/04/21 History Ticagrelor [Brilinta] 90 mg PO BID #60 tab 05/07/21 07/04/21 Rx Acetaminophen [Tylenol] 325 mg PO DAILY 06/26/21 07/04/21 History Tamsulosin [Flomax] 0.4 mg PO BID 07/03/21 07/04/21 History Allergies Allergy/AdvReac Type Severity Reaction Status Date / Time No Known Allergies Allergy Verified 07/05/21 07:41 Surgical - Exam Vital Signs Temp Pulse Resp BP Pulse Ox 97.1 F L 52 L 16 170/74 99 07/05/21 07:47 07/05/21 07:47 07/05/21 07:47 07/05/21 07:47 07/05/21 07:47 Gen. is a pleasant cooperative male in no acute distress. HEENT is normocephali c, atraumatic, extraocular motion intact. Heart appears regular. Lungs are clear bilaterally. Abdomen is soft. Extremity show no clubbing, cyanosis or edema. Slightly slowed movements to the left side, however normal motor function. Cranial nerves II through XII grossly intact Results Greater than 80% stenosis right internal carotid artery and CT angiogram Assessment and Plan Assessment: Symptomatic right internal carotid artery stenosis Hypertension History of tobacco abuse History of OR History of CABG Plan: Plan for right carotid endarterectomy with patch angioplasty.
[2021-07-05] MEDS ORDERED: ceFAZolin 2 GM in SODIUM CHLORIDE 0.9% 500 ML 500 ML IRRIGATION ONE (10:04)
[2021-07-05] MEDS ORDERED: HEPARIN SODIUM (1,000 UNIT/ML) 2,000 UNIT in SODIUM CHLORIDE 0.9% 1,000 ML IRRIGATION ONE (10:05)
[2021-07-05] MEDS ORDERED: LIDOCAINE 1% INJ 10MG/ML (20 ML MDV) SQ ONE (10:15)
[2021-07-05] MEDS ORDERED: LACTATED RINGERS 1,000 ML IV ONE (11:00)
[2021-07-05] MEDS ORDERED: THROMBIN (BOVINE) 5,000 UNIT VIAL TOPICAL ONE (11:00)
[2021-07-05] MEDS ORDERED: GELATIN SPONGE,ABSORB (LARGE) 1 EACH SPONGE TOPICAL ONE (11:00)
[2021-07-05 11:46] LABS: Glucose,Whole Blood 192 mg/dL (75-99)
[2021-07-05] MEDS ORDERED: MAG HYDROX/AL HYDROX/SIMETH 30 ML CUP PO PRN (12:52)
[2021-07-05] MEDS ORDERED: TRIMETHOBENZAMIDE 100 MG/ML 2 ML VIAL IM PRN (12:52)
[2021-07-05] MEDS ORDERED: BENZOCAINE/MENTHOL LOZENG 1 EACH LOZENGE MUCOUS MEM PRN (12:52)
[2021-07-05] MEDS ORDERED: HYDROcodone/APAP 5-325MG 1 EACH TAB PO PRN (12:52)
[2021-07-05] MEDS ORDERED: ACETAMINOPHEN TAB 325 MG TAB PO PRN (12:52)
--- NOTE | 2021-07-05 12:52 | P.OP ---
Date of Procedure: 07/05/21 Description of Procedure: Preoperative Diagnosis: High-grade Right Internal carotid artery stenosis, symptomatic Postoperative Diagnosis: Same Procedure: Right carotid endarterectomy with patch angioplasty Anesthesia: GET Surgeon: Maggi Velez DO Estimated Blood Loss (ml): 50 mL Asst.: Jules Ingram IV Fluids: See records Urine Output: See records Specimen: Right carotid plaque Condition: stable Disposition: PACU Findings and indications: [The patient is a 65-year-old male who previously presented with findings consistent with a some traumatic right internal carotid artery stenosis. Workup and evaluation showed greater than 80% stenosis. He was recommended to undergo a right carotid endarterectomy. Risks and benefits were discussed. He seemingly understood and was willing to proceed as such.] Procedure in detail: After written informed consent was obtained the patient all risks benefits and competitions were described the patient is brought to the operative suite and laid in a supine position. The area of the neck was prepped and draped in usual sterile fashion after appropriate anesthetic was performed per the anesthesiologist. A timeout was performed in normal fashion antibiotics were administered prior to incision. An oblique incision was then created just anterior to the sternocleidomastoid musculature with a 10 blade scalpel and dissection was carried down to the carotid sheath. The carotid sheath was then entered after facial vein was located and suture ligated in normal fashion. The common carotid, internal carotid, external carotid and superior thyroid arteries were located and dissected free in a meticulous fashion circumferentially and controlled with ves luna loops. Attention was then placed to locating the vagus nerve as well as hypoglossal nerve which were both spared. The hypoglossal nerve itself was very low, almost at the level of the bifurcation. It was spared. Once controlled, patient was administered heparin and followed with ACTs for appropriate heparinization. Once ACT was appropriate, the proximal and distal aspects of the dissection were then controlled with vascular clamps. Arteriotomy was then created with 11 blade scalpel and extended with Alvarez Boateng scissors. Utilizing pressure tubing stump pressures were obtained and were 59. No shunt was required. An endarterectomy was then performed with a [place] elevator. The plaque was transected proximally and then feathered at the distal aspect of the internal carotid artery and removed. The area was copiously irrigated with heparinized saline and all free debris was removed. The distal endpoint was tacked with sutures of 7-0 Prolene A 0.8 x 8 cm bovine pericardial patch was then chosen and patch angioplasty was performed with 6-0 Prolene suture in a running fashion. Prior to last sutures being placed the inflow was released flushing any free debris out of the patch. This was reclamped and the internal carotid artery was released revealing good brisk flow and was once again reclamped. The external carotid and superior thyroid artery were then released followed by the common carotid artery to allow any free debris to be flushed into the external system. Final sutures were placed and secured. Internal carotid artery control was then released. Good pulsatile flow was noted through the patch and a Doppler was utilized demonstrating good brisk flow into the internal, external carotid arteries without any signs of obstruction. Hemostasis was then assured with interrupted sutures of 6-0 Prolene as well as thrombin and Gelfoam. A 10-Brazilian MAXI drain was then placed in normal fashion and secured with 3-0 nylon suture. The incision was then closed in a multilayer fashion after hemostasis was assured. The skin was then cleansed and dressings were placed. During the closure, it was noted that the patient's IV was infiltrated. His left hand appears swollen. At this time while attempting to obtain another IV site for access his pressures were in the 80s to 90s systolic. An IV was obtained in the left foot and blood pressures were better controlled. The patient was extubated. He was allowed awaken from anesthesia and eventually did start following commands with movement of all 4 extremities, slightly weaker on the left as previous. Patient was then sent to PACU for recovery.
[2021-07-05] MEDS: PHENYLEPHRINE 40 MG in SODIUM CHLORIDE 0.9% 250 ML IV ONE ×2 (13:11→13:20)
[2021-07-05 13:23] LABS: Glucose,Whole Blood 152 mg/dL (75-99)
[2021-07-05 13:58] LABS: Glucose,Whole Blood 144 mg/dL (75-99)
--- NOTE | 2021-07-05 16:45 | P.CNOR ---
History of Present Illness - HPI Consult date: 07/05/21 Consult reason: other (Left arm swelling) History of present illness: This is a 65-year-old gentleman who is currently in the ICU, status post right carotid endarterectomy. We were consulted by vascular surgery today with concern over left upper extremity swelling after fluid extravasation into the soft tissue when his IV went bad during the surgery. We have been consulted for evaluation for possible compartment syndrome. I have spoken with the [employer] [facility], recovery room nurse and ICU nurse and there is no clear answer as to whether there was extravasation of vasopressor medication. The patient has minimal complaints regarding the left upper extremity. He denies any numbness or tingling. He denies pain. His surgical procedure went well and he is currently stable in ICU. 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 bilateral renal artery stenting, balloon angioplasty of coronary artery, open heart surgery 02/2015-double bypass Past Anesthesia/Blood Transfusion Reactions: No Reported Reaction Smoking Status: Former smoker - Past Family History Brother(s) Family Medical History: Myocardial Infarction ([place]) Father Family Medical History: CVA/TIA, Myocardial Infarction ([place]) Additional Family Medical History / Comment(s): ANEURYSM Mother Family Medical History: CVA/TIA, Deep Vein Thrombosis (DVT), Myocardial Infarction ([place]) Sister(s) Family Medical History: Cancer, Myocardial Infarction ([place]) Additional Family Medical History / Comment(s): 3 sisters- [place] Medications and Allergies Home Medications Medication Instructions Recorded Confirmed Type Cholecalciferol [Vitamin D3 (25 25 mcg PO DAILY 12/05/14 07/04/21 History Mcg = 1000 Iu)] Pentoxifylline [TRENtal] 400 mg PO TID 12/05/14 07/04/21 History Docusate [Colace] 100 mg PO BID 03/17/17 07/04/21 History Ferrous Sulfate [Iron] 325 mg PO DAILY 03/17/17 07/04/21 History Metoprolol Succinate (ER) [Toprol 50 mg PO HS 03/17/17 07/04/21 History XL] PARoxetine HCL [Paxil] 40 mg PO DAILY 03/17/17 07/04/21 History Sildenafil Citrate [Viagra] 50 mg PO DIRECTED PRN 03/17/17 07/04/21 History lisinopriL [Zestril] 10 mg PO BID 03/17/17 07/04/21 History traZODone HCL [Desyrel] 50 mg PO HS 03/17/17 07/04/21 History Aspirin EC [Ecotrin Low Dose] 81 mg PO DAILY 05/03/21 07/04/21 History Atorvastatin [Lipitor] 40 mg PO HS 05/03/21 07/04/21 History Cilostazol [Pletal] 100 mg PO BID 05/03/21 07/04/21 History Gabapentin [Neurontin] 400 mg PO TID 05/03/21 07/04/21 History amLODIPine [Norvasc] 10 mg PO PC-LUNCH 05/03/21 07/04/21 History hydroCHLOROthiazide [Hydrodiuril] 25 mg PO DAILY 05/03/21 07/04/21 History Ticagrelor [Brilinta] 90 mg PO BID #60 tab 05/07/21 07/04/21 Rx Acetaminophen [Tylenol] 325 mg PO DAILY 06/26/21 07/04/21 History Tamsulosin [Flomax] 0.4 mg PO BID 07/03/21 07/04/21 History Allergies Allergy/AdvReac Type Severity Reaction Status Date / Time No Known Allergies Allergy Verified 07/05/21 07:41 Physical Examination This is a pleasant 65-year-old male in no acute distress. He is alert and oriented 3. Exam of the left upper extremity reveals mild soft tissue swelling about the forearm and into the dorsal hand. There is no erythema or increased warmth. Soft tissue is soft and compressible. Forearm muscle compartments are soft and compressible. He has no pain on palpation about the forearm or hand. He has full finger motion without difficulty or pain. Radial pulse is +1/4 and equal to the right upper extremity. Sensation is intact. Results - Labs Labs: Abnormal Lab Results - Last 24 Hours (Table) 07/05/21 07/05/21 07/05/21 Range/Units 11:44 13:22 13:56 POC Glucose (mg/dL) 192 H 152 H 144 H (75-99) mg/dL Assessment and Plan (1) Status post carotid endarterectomy Current Visit: Yes Status: Acute Code(s): Z98.890 - OTHER SPECIFIED POSTPROCEDURAL STATES SNOMED Code(s): 407375695 (2) Localized swelling of left forearm Current Visit: Yes Status: Acute Code(s): R22.32 - LOCALIZED SWELLING, MASS AND LUMP, LEFT UPPER LIMB SNOMED Code(s): 54941205476491112 Plan: The clinical findings are discussed the patient and nursing staff. There is no evidence of compartment syndrome on exam today. Soft tissue swelling is consistent with IV fluid extravasation. There is no significant pain or other symptoms that would be me to believe that he has an active necrosis from extravasation of a vasopressor medication in the soft tissue. If there is any question, I would recommend discussion between the intensivists and vascular surgery regarding subcuticular treatment with Regitine. There is no current surgical intervention indicated orthopedically. Please call us if we can be of any further assistance in the care of this patient.
[2021-07-05] MEDS: INSULIN ASPART (NovoLOG) 100 UNIT/ML VIAL SQ SCH ×2 (16:51→20:27)
[2021-07-05 16:53] LABS: Glucose,Whole Blood 127 mg/dL (75-99)
[2021-07-05] MEDS: GABAPENTIN 400 MG CAP PO SCH ×2 (16:53→23:57)
[2021-07-05] MEDS ORDERED: PHENYLEPHRINE 40 MG in SODIUM CHLORIDE 0.9% 250 ML IV SCH (17:02)
[2021-07-05] MEDS: PHENYLEPHRINE 40 MG in SODIUM CHLORIDE 0.9% 250 ML IV SCH (17:37)
[2021-07-05 20:17] LABS: Glucose,Whole Blood 162 mg/dL (75-99)
[2021-07-05] MEDS: DOCUSATE 100 MG CAP PO SCH (20:26)
[2021-07-05] MEDS: TAMSULOSIN 0.4 MG CAP.ER.24H PO SCH (20:26)
[2021-07-05] MEDS ORDERED: traZODone HCL 50 MG TAB PO SCH (21:00)
[2021-07-05] MEDS ORDERED: ATORVASTATIN 40 MG TAB PO SCH (21:00)
[2021-07-06] MEDS: PHENYLEPHRINE 40 MG in SODIUM CHLORIDE 0.9% 250 ML IV SCH (02:12)
[2021-07-06 05:23] LABS: Basophils % (A) 0 %; Eosinophils # (A) 0.1 k/uL (0-0.7); Eosinophils % (A) 1 %; HCT 40.9 % (39.0-53.0); HGB 13.8 gm/dL (13.0-17.5); Lymphocytes # (A) 2.3 k/uL (1.0-4.8); Lymphocytes % (A) 21 %; MCH 29.7 pg (25.0-35.0); MCHC 33.8 g/dL (31.0-37.0); Mean Platelet Volume 8.8; Monocytes # (A) 0.6 k/uL (0-1.0); Monocytes % (A) 5 %; Neutrophils # (A) 8.1 k/uL (1.3-7.7); Neutrophils % (A) 72 %; Platelet Count 171 k/uL (150-450); RBC 4.65 m/uL (4.30-5.90); RDW 14.1 % (11.5-15.5); WBC 11.2 k/uL (3.8-10.6)
[2021-07-06 06:54] LABS: Glucose,Whole Blood 112 mg/dL (75-99)
[2021-07-06] MEDS: INSULIN ASPART (NovoLOG) 100 UNIT/ML VIAL SQ SCH ×3 (06:58→17:11)
[2021-07-06 07:30] LABS: Calcium 9.2 mg/dL (8.4-10.2); Potassium 3.9 mmol/L (3.5-5.1)
[2021-07-06] MEDS: DOCUSATE 100 MG CAP PO SCH (08:05)
[2021-07-06] MEDS: TAMSULOSIN 0.4 MG CAP.ER.24H PO SCH (08:05)
[2021-07-06] MEDS: GABAPENTIN 400 MG CAP PO SCH ×2 (08:06→16:52)
[2021-07-06] MEDS: LACTATED RINGERS 1,000 ML IV SCH (08:06)
[2021-07-06] MEDS ORDERED: FERROUS SULFATE 325 MG TAB PO SCH (09:00)
[2021-07-06] MEDS ORDERED: ASPIRIN 81 MG PO SCH ×2 (09:00)
[2021-07-06] MEDS ORDERED: TICAGRELOR 90 MG TAB PO SCH (09:00)
[2021-07-06] MEDS ORDERED: CHOLECALCIFEROL 25 MCG (1000 IU) TABLET PO SCH (09:00)
[2021-07-06] MEDS ORDERED: ACETAMINOPHEN TAB 325 MG TAB PO SCH (09:00)
[2021-07-06] MEDS ORDERED: PARoxetine 20 MG TAB PO SCH (09:00)
--- NOTE | 2021-07-06 10:43 | P.CONS ---
History of Present Illness - Reason for Consult Postoperative hypotension, leukocytosis - History of Present Illness Patient is an 65-year-old male admitted for elective right carotid endarterectomy for symptomatic right empirically artery stenosis. Patient's excellent with surgery patient is hypotensive patient is still hypotensive postsurgery patient is on phenylephrine intravenously. Patient although clinically doing well patient doesn't have any symptoms at this time. Patient wanted to go home. Patient on multiple antidepressant medications patient appears to have chronic kidney disease with baseline creatinine of around 1.5 patient is on hydrocodone thiazide may not be beneficial because of his chronic kidney disease which will be discontinued. Patient is also on lisinopril 10 mg twice a day along with amlodipine and as needed sildenafil and beta sami. Patient presently has some sinus bradycardia patient takes metoprolol 50 mg sustained release at home. Patient's right arm was infiltrated. REVIEW OF SYSTEMS: CONSTITUTIONAL: No fever, no malaise, no fatigue. HEENT: No recent visual problems or hearing problems. Denied any sore throat. CARDIOVASCULAR: No chest pain, orthopnea, PND, no palpitations, no syncope. PULMONARY: No shortness of breath, no cough, no hemoptysis. GASTROINTESTINAL: No diarrhea, no nausea, no vomiting, no abdominal pain. NEUROLOGICAL: No headaches, no weakness, no numbness. HEMATOLOGICAL: Denies any bleeding or petechiae. GENITOURINARY: Denies any burning micturition, frequency, or urgency. MUSCULOSKELETAL/RHEUMATOLOGICAL: Denies any joint pain, swelling, or any muscle pain. ENDOCRINE: Denies any polyuria or polydipsia. The rest of the 14-point review of systems is negative. PHYSICAL EXAMINATION: GENERAL: The patient is alert and oriented x3, not in any acute distress. Well developed, well nourished. HEENT: Pupils are round and equally reacting to light. EOMI. No scleral icterus. No conjunctival pallor. Normocephalic, atraumatic. No pharyngeal erythema. No thyromegaly. Patient's neck is post surgically packed post carotid endarterectomy CARDIOVASCULAR: S1 and S2 present. No murmurs, rubs, or gallops. PULMONARY: Chest is clear to auscultation, no wheezing or crackles. ABDOMEN: Soft, nontender, nondistended, normoactive bowel sounds. No palpable organomegaly. MUSCULOSKELETAL: No joint swelling or deformity. EXTREMITIES: No cyanosis, clubbing, or pedal edema. NEUROLOGICAL: Gross neurological examination did not reveal any focal deficits. SKIN: No rashes. Assessment and plan -Postoperative hypotension: Expected. If we're able to wean him off phenylephrine patient is okay to be discharged from medical perspective with the following changes metoprolol dose is being cut down to 25 mg sustained release prescription of which was provided patient need to hold his lisinopril until seen by primary care physician he probably will need this medication, patient should hold his amlodipine tomorrow and start taking it from Friday there is day after. Instructions were conveyed to the nurse that discharge is a patient. -Coronary artery disease and stent-carotid artery disease -COPD Having progressive disease -Obstructive sleep apnea -Type 2 diabetes mellitus blood sugars are well controlled not requiring any sliding scale insulin at this time -Depression -Chronic kidney disease stage III secondary to diabetic nephropathy -Leukocytosis reactive without any evidence of infection For above-mentioned chronic medical problems patient was resumed on appropriate home medications DVT prophylaxis: As per primary service Past Medical History Past Medical History: Coronary Artery Disease (CAD), Chest Pain / Angina, COPD, CVA/TIA, Diabetes Mellitus, Hyperlipidemia, Hypertension, Memory Impairment, Myocardial Infarction (MA), Prostate Disorder, Sleep Apnea/CPAP/BIPAP, Vascular Disorder Additional Past Medical History / Comment(s): Peripheral vascular disease, renal artery stenosis with previous renal artery stenting, insomnia,NEUROPATHY, stroke 05/03/21-left side weakness, migraines, not using CPAP currently, diet control diabetic, 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 bilateral renal artery stenting, balloon angioplasty of coronary artery, open heart surgery 02/2015-double bypass Past Anesthesia/Blood Transfusion Reactions: No Reported Reaction Smoking Status: Former smoker - Past Family History Brother(s) Family Medical History: Myocardial Infarction (MA) Father Family Medical History: CVA/TIA, Myocardial Infarction (MA) Additional Family Medical History / Comment(s): ANEURYSM Mother Family Medical History: CVA/TIA, Deep Vein Thrombosis (DVT), Myocardial Infarction (MA) Sister(s) Family Medical History: Cancer, Myocardial Infarction (MA) Additional Family Medical History / Comment(s): 3 sisters- MA Medications and Allergies Home Medications Medication Instructions Recorded Confirmed Type Cholecalciferol [Vitamin D3 (25 25 mcg PO DAILY 12/05/14 07/04/21 History Mcg = 1000 Iu)] Pentoxifylline [TRENtal] 400 mg PO TID 12/05/14 07/04/21 History Docusate [Colace] 100 mg PO BID 03/17/17 07/04/21 History Ferrous Sulfate [Iron] 325 mg PO DAILY 03/17/17 07/04/21 History PARoxetine HCL [Paxil] 40 mg PO DAILY 03/17/17 07/04/21 History traZODone HCL [Desyrel] 50 mg PO HS 03/17/17 07/04/21 History Aspirin EC [Ecotrin Low Dose] 81 mg PO DAILY 05/03/21 07/04/21 History Atorvastatin [Lipitor] 40 mg PO HS 05/03/21 07/04/21 History Cilostazol [Pletal] 100 mg PO BID 05/03/21 07/04/21 History Gabapentin [Neurontin] 400 mg PO TID 05/03/21 07/04/21 History Ticagrelor [Brilinta] 90 mg PO BID #60 tab 05/07/21 07/04/21 Rx Acetaminophen [Tylenol] 325 mg PO DAILY 06/26/21 07/04/21 History Tamsulosin [Flomax] 0.4 mg PO BID 07/03/21 07/04/21 History Metoprolol Succinate (ER) [Toprol 25 mg PO DAILY #30 tab 07/06/21 Rx XL] amLODIPine [Norvasc] 10 mg PO PC-LUNCH #0 07/06/21 07/04/21 Rx lisinopriL [Zestril] 10 mg PO BID #0 07/06/21 07/04/21 Rx Allergies Allergy/AdvReac Type Severity Reaction Status Date / Time No Known Allergies Allergy Verified 07/05/21 07:41 Physical Exam Vitals: Vital Signs Temp Pulse Pulse Resp BP BP Pulse Ox 07/06/21 10:00 61 24 120/66 07/06/21 09:45 53 L 12 104/67 07/06/21 09:30 88 22 100/55 07/06/21 09:15 67 15 92/56 07/06/21 09:00 58 L 36 H 105/55 07/06/21 08:45 57 L 20 120/62 07/06/21 08:30 61 15 137/72 07/06/21 08:15 59 L 18 109/77 07/06/21 08:00 97.6 F 58 L 17 150/90 97 07/06/21 07:45 55 L 12 145/65 97 07/06/21 07:30 49 L 23 138/69 98 07/06/21 07:15 56 L 22 164/71 97 07/06/21 07:00 50 L 21 153/61 98 07/06/21 06:45 51 L 20 144/64 97 07/06/21 06:30 50 L 22 135/62 96 07/06/21 06:15 67 16 137/56 96 07/06/21 06:00 50 L 19 135/59 98 07/06/21 05:45 54 L 20 138/61 96 07/06/21 05:30 53 L 16 136/56 97 07/06/21 05:15 52 L 19 143/66 97 07/06/21 05:00 49 L 16 150/58 97 07/06/21 04:45 56 L 21 169/77 98 07/06/21 04:30 56 L 20 161/70 97 07/06/21 04:15 65 15 161/82 98 07/06/21 04:00 97.6 F 53 L 19 166/75 96 07/06/21 03:45 49 L 18 166/81 98 07/06/21 03:30 47 L 21 176/83 98 07/06/21 03:15 54 L 16 174/87 97 07/06/21 03:00 58 L 14 168/75 94 L 07/06/21 02:45 48 L 20 160/73 97 07/06/21 02:30 49 L 21 145/67 98 07/06/21 02:15 46 L 18 110/55 98 07/06/21 02:00 70 16 141/69 96 07/06/21 01:45 50 L 20 150/79 98 07/06/21 01:30 52 L 20 145/71 98 07/06/21 01:15 49 L 17 141/62 98 07/06/21 01:00 48 L 19 142/75 98 07/06/21 00:45 61 19 130/85 95 07/06/21 00:30 54 L 19 154/88 99 07/06/21 00:16 58 L 21 147/66 97 07/06/21 00:00 97.6 F 49 L 20 129/64 97 07/05/21 23:45 56 L 16 138/68 92 L 07/05/21 23:30 63 22 144/67 90 L 07/05/21 23:15 63 17 149/68 90 L 07/05/21 23:00 56 L 20 140/78 91 L 07/05/21 22:45 56 L 15 134/71 92 L 07/05/21 22:30 63 12 144/72 94 L 07/05/21 22:15 58 L 15 161/85 91 L 07/05/21 22:00 59 L 15 150/79 92 L 07/05/21 21:45 61 10 L 148/74 97 07/05/21 21:30 55 L 17 155/76 93 L 07/05/21 21:15 57 L 18 152/75 94 L 07/05/21 21:00 60 21 148/76 93 L 07/05/21 20:45 66 19 144/74 91 L 07/05/21 20:30 63 20 149/68 91 L 07/05/21 20:15 73 15 128/77 94 L 07/05/21 20:00 98.6 F 64 21 126/89 91 L 07/05/21 19:15 70 7 L 129/97 93 L 07/05/21 19:00 61 5 L 150/72 92 L 07/05/21 18:45 60 6 L 157/76 92 L 07/05/21 18:30 62 19 153/79 91 L 07/05/21 18:15 58 L 10 L 144/73 94 L 07/05/21 18:00 59 L 8 L 118/89 94 L 07/05/21 17:45 59 L 11 L 138/80 07/05/21 17:30 66 13 113/68 95 07/05/21 17:15 64 18 148/80 96 07/05/21 17:00 62 14 150/74 94 L 07/05/21 16:45 62 12 147/71 95 07/05/21 16:30 66 10 L 159/74 97 07/05/21 16:15 59 L 10 L 149/126 94 L 07/05/21 16:00 98.2 F 71 17 139/74 95 07/05/21 15:45 67 17 136/71 92 L 07/05/21 15:30 61 20 147/69 94 L 07/05/21 15:15 66 18 133/62 92 L 07/05/21 15:00 64 5 L 149/69 94 L 07/05/21 14:45 60 13 141/67 92 L 07/05/21 14:30 58 L 11 L 07/05/21 14:20 58 L 7 L 139/70 92 L 07/05/21 14:10 58 L 9 L 137/76 95 07/05/21 14:00 63 9 L 95 07/05/21 13:54 97.8 F 64 24 07/05/21 13:44 59 L 16 133/60 100 07/05/21 13:30 60 16 110/58 100 07/05/21 13:15 62 16 105/56 100 07/05/21 13:00 65 18 103/58 100 07/05/21 12:44 97.5 F L 70 16 123/55 99 Intake and Output 07/05/21 07/06/21 07/06/21 22:59 06:59 14:59 Intake Total 653.823 455.848 178.776 Output Total 740 1445 225 Balance -86.177 -989.152 -46.224 Intake: IV 160 160 60 Lactated Ringers 1,000 ml 160 160 60 @ 20 mls/hr IV .Q24H [facility] Rx#:[id number] Intake, IV Titration 243.823 295.848 118.776 Amount Phenylephrine 40 mg In 159.374 Sodium Chloride 0.9% 250 ml @ 0.5 MCG/KG/MIN 15. 035 mls/hr IV .[id number] [facility] Rx#:[id number] Phenylephrine 40 mg In 84.449 295.848 118.776 Sodium Chloride 0.9% 250 ml @ 0.5 MCG/KG/MIN 15. 035 mls/hr IV .[id number] [facility] Rx#:[id number] Oral 250 Output: Drainage 35 Right Neck 35 Urine 740 1410 225 Other: Voiding Method Indwelling Catheter Indwelling Catheter Indwelling Catheter Results CBC & Chem 7: 07/06/21 04:47 07/06/21 04:47 Labs: Abnormal Lab Results - Last 24 Hours (Table) 07/05/21 07/05/21 07/05/21 Range/Units 11:44 13:22 13:56 WBC (3.8-10.6) k/uL Neutrophils # (1.3-7.7) k/uL Creatinine (0.66-1.25) mg/dL Glucose (74-99) mg/dL POC Glucose (mg/dL) 192 H 152 H 144 H (75-99) mg/dL 07/05/21 07/05/21 07/06/21 Range/Units 16:51 20:15 04:47 WBC 11.2 H (3.8-10.6) k/uL Neutrophils # 8.1 H (1.3-7.7) k/uL Creatinine (0.66-1.25) mg/dL Glucose (74-99) mg/dL POC Glucose (mg/dL) 127 H 162 H (75-99) mg/dL 07/06/21 07/06/21 Range/Units 04:47 06:52 WBC (3.8-10.6) k/uL Neutrophils # (1.3-7.7) k/uL Creatinine 1.34 H (0.66-1.25) mg/dL Glucose 113 H (74-99) mg/dL POC Glucose (mg/dL) 112 H (75-99) mg/dL
[2021-07-06 11:56] LABS: Glucose,Whole Blood 128 mg/dL (75-99)
[2021-07-06] MEDS ORDERED: METOPROLOL SUCCINATE (ER) 25 MG TAB.ER.24H PO SCH (12:15)
[2021-07-06 16:12] VITALS: TEMP 97.5
--- NOTE | 2021-07-06 17:08 | CONS ---
CONSULTATION Mr. Woodward is a 65-year-old male who underwent right carotid endarterectomy yesterday. Cardiology consultation was requested. The patient has a known history of coronary artery disease, status post coronary bypass grafting in 2015 with CARRERA to LAD, saphenous vein graft to the obtuse marginal branch and saphenous vein graft to the right coronary artery. He has a history of peripheral vascular disease as well, history of revascularization of the lower extremities. He had a recent cerebrovascular event and was found to have significant right carotid stenosis and underwent carotid endarterectomy yesterday. He is feeling well this morning, sitting up in the chair. He has no chest pain. According to him, he has occasional chest discomfort that is non- exertional in pattern. He has some chronic dyspnea on exertion. He denies any palpitations or syncope. No clear PND or orthopnea. He underwent myocardial perfusion imaging in November of last year, had an ejection fraction of 40% to 45% with no evidence of stress-induced ischemia. He has a prior history of hypertension and hyperlipidemia. He stopped smoking many years ago but smokes marijuana on a daily basis. MEDICATIONS: His medication at home included: 1. Amlodipine 10 mg daily. 2. Aspirin. 3. Lipitor 40 mg daily. 4. Cilostazol. 5. Hydrochlorothiazide 25 mg daily. 6. Lisinopril 10 mg twice a day. 7. Metoprolol succinate 50 mg daily. 8. Paroxetine. 9. Sildenafil. 10.Trazodone. 11.Trental. REVIEW OF SYSTEMS: RESPIRATORY SYSTEM: He had dyspnea on exertion. No recent wheezing or cough. GI SYSTEM: No recent GI bleeding. No peptic ulcer disease. SYSTEM: No dysuria or hematuria. NERVOUS SYSTEM: He as the stroke as mentioned. PHYSICAL EXAMINATION: He is a 65-year-old male, alert, oriented, in no apparent distress. Off his vasopressin. His blood pressure earlier was running in the 120s up to the 140s. At this time his heart rate is in the 60s to 70s. HEAD: Normocephalic. EYES: Sclerae anicteric. NECK: Dressing noted on the right carotid artery. Drainage in place. Bruit on the left side. LUNGS: Clear to auscultation. HEART: Regular rate and rhythm. S1, S2. No S3, with systolic murmur 2/6 at the base. No diastolic murmur. ABDOMEN: Soft, nontender. Positive bowel sounds. No organomegaly. EXTREMITIES: No edema. LAB DATA: BUN and creatinine 17 and 1.34. Potassium 3.9. Hemoglobin 13.8. IMPRESSION: 1. Status post right carotid endarterectomy. 2. History of coronary artery disease with ischemic cardiomyopathy, status post coronary artery bypass grafting. 3. Ischemic cardiomyopathy with a moderately impaired left ventricular systolic function, but no evidence of congestive heart failure. 4. History of hyperlipidemia. 5. Marijuana use. 6. Prior history of hypertension. RECOMMENDATIONS: Patient's blood pressure is on the lower side at this time. I would cut down the dose of his beta sami. I will hold his amlodipine. His lisinopril will be on hold. He can follow his blood pressure at home and let Dr. Felder know about the trend and subsequently adjustment can be made. Thank you for this consult. Will follow with you. YADYL / IJN: [id number] /
[2021-07-06 17:11] VITALS: BP 146/71; PULSE 61; RESP 23
--- NOTE | 2021-07-06 17:17 | P.DS ---
Providers Date of admission: 07/05/21 07:11 Attending physician: Maggi Velez, Consults: 07/05/21 12:52 Consult Physician Routine Consulting Provider: Kael Altamirano Consult Reason/Comments: med mangement, post op carotid Do you want consulting provider notified?: Yes 07/05/21 12:57 Consult Physician Urgent Consulting Provider: Rubi Cantrell Consult Reason/Comments: eval left hand/arm compartment syndrome Do you want consulting provider notified?: Yes 07/06/21 10:13 Consult Physician Routine Consulting Provider: Travon Felder Consult Reason/Comments: medication rec from d/c (BP meds) Do you want consulting provider notified?: Yes Primary care physician: [facility] Hospital Course: Michael is a 65-year-old male who came in with high-grade right internal carotid artery stenosis. He was recommended to undergo a right carotid endarterectomy and patch angioplasty. He has tolerated the procedure well which she underwent on 07/05/2021. He had no issues. The drain was removed on postoperative day 1. His vital signs are stable. A Velez catheter and art line removed. He is tolerating a diet and urinating without difficulty. He was seen and evaluated. His neck is clean and dry without any evidence of hematoma. He will be discharged home with resumption of his home medications. Plan - Discharge Summary Discharge Rx Participant: Yes New Discharge Prescriptions: New RX: Metoprolol Succinate (ER) [Toprol XL] 25 mg PO DAILY #30 tab Continue RX: Pentoxifylline [TRENtal] 400 mg PO TID RX: Cholecalciferol [Vitamin D3 (25 Mcg = 1000 Iu)] 25 mcg PO DAILY RX: traZODone HCL [Desyrel] 50 mg PO HS RX: PARoxetine HCL [Paxil] 40 mg PO DAILY RX: Docusate [Colace] 100 mg PO BID RX: Ferrous Sulfate [Iron] 325 mg PO DAILY RX: Atorvastatin [Lipitor] 40 mg PO HS RX: Tamsulosin [Flomax] 0.4 mg PO BID RX: lisinopriL [Zestril] 10 mg PO BID #0 RX: Aspirin EC [Ecotrin Low Dose] 81 mg PO DAILY RX: Cilostazol [Pletal] 100 mg PO BID RX: Gabapentin [Neurontin] 400 mg PO TID RX: Ticagrelor [Brilinta] 90 mg PO BID #60 tab RX: Acetaminophen [Tylenol] 325 mg PO DAILY RX: amLODIPine [Norvasc] 10 mg PO PC-LUNCH #0 Discontinued RX: Sildenafil Citrate [Viagra] 50 mg PO DIRECTED PRN PRN Reason: e.d. RX: Metoprolol Succinate (ER) [Toprol XL] 50 mg PO HS RX: hydroCHLOROthiazide [Hydrodiuril] 25 mg PO DAILY Discharge Medication List RX: Cholecalciferol [Vitamin D3 (25 Mcg = 1000 Iu)] 25 mcg PO DAILY 12/05/14 [History] RX: Pentoxifylline [TRENtal] 400 mg PO TID 12/05/14 [History] RX: Docusate [Colace] 100 mg PO BID 03/17/17 [History] RX: Ferrous Sulfate [Iron] 325 mg PO DAILY 03/17/17 [History] RX: PARoxetine HCL [Paxil] 40 mg PO DAILY 03/17/17 [History] RX: traZODone HCL [Desyrel] 50 mg PO HS 03/17/17 [History] RX: Aspirin EC [Ecotrin Low Dose] 81 mg PO DAILY 05/03/21 [History] RX: Atorvastatin [Lipitor] 40 mg PO HS 05/03/21 [History] RX: Cilostazol [Pletal] 100 mg PO BID 05/03/21 [History] RX: Gabapentin [Neurontin] 400 mg PO TID 05/03/21 [History] RX: Ticagrelor [Brilinta] 90 mg PO BID #60 tab 05/07/21 [Rx] RX: Acetaminophen [Tylenol] 325 mg PO DAILY 06/26/21 [History] RX: Tamsulosin [Flomax] 0.4 mg PO BID 07/03/21 [History] RX: Metoprolol Succinate (ER) [Toprol XL] 25 mg PO DAILY #30 tab 07/06/21 [Rx] RX: amLODIPine [Norvasc] 10 mg PO PC-LUNCH #0 07/06/21 [Rx] RX: lisinopriL [Zestril] 10 mg PO BID #0 07/06/21 [Rx] Follow up Appointment(s)/Referral(s): Maggi Velez DO [STAFF PHYSICIAN] - 10 Days Activity/Diet/Wound Care/Special Instructions: May shower starting tomorrow. Resume home medications as ordered. Resume regular activity. Follow-up in 2 weeks. Discharge Disposition: HOME SELF-CARE
== END 2021-07-06 17:49 | disposition home or self-care (01) | DRG 38 ==
LOC: 2ORMAIN 07:11 → 2SICU 12:42
PROVIDERS: ADMIT Surgery; ATTEND Surgery
PROC: 03UK0KZ Supplement Right Internal Carotid Artery with Nonautologous Tissue Substitute, Open Approach (ICD-10-PCS; 2021-07-05)
PROC: 03CK0ZZ Extirpation of Matter from Right Internal Carotid Artery, Open Approach (ICD-10-PCS; principal; 2021-07-05 09:00)
DX: I65.21 Occlusion and stenosis of right carotid artery (principal); I69.354 Hemiplegia and hemiparesis following cerebral infarction affecting left non-dominant side; G47.33 Obstructive sleep apnea (adult) (pediatric); J44.9 Chronic obstructive pulmonary disease, unspecified; I25.10 Atherosclerotic heart disease of native coronary artery without angina pectoris; I12.9 Hypertensive chronic kidney disease with stage 1 through stage 4 chronic kidney disease, or unspecified chronic kidney disease; Z20.822 Contact with and (suspected) exposure to COVID-19; Z95.5 Presence of coronary angioplasty implant and graft; N18.30 Chronic kidney disease, stage 3 unspecified; E11.22 Type 2 diabetes mellitus with diabetic chronic kidney disease; Z87.891 Personal history of nicotine dependence; R06.09 Other forms of dyspnea; I25.5 Ischemic cardiomyopathy; E11.21 Type 2 diabetes mellitus with diabetic nephropathy; D72.829 Elevated white blood cell count, unspecified; I95.81 Postprocedural hypotension; E11.51 Type 2 diabetes mellitus with diabetic peripheral angiopathy without gangrene; E78.5 Hyperlipidemia, unspecified; F32.9 Major depressive disorder, single episode, unspecified; I25.2 Old myocardial infarction; I70.1 Atherosclerosis of renal artery; I77.1 Stricture of artery; Z79.02 Long term (current) use of antithrombotics/antiplatelets; Z79.82 Long term (current) use of aspirin; Z79.899 Other long term (current) drug therapy; Z95.1 Presence of aortocoronary bypass graft; G47.00 Insomnia, unspecified
CPT/HCPCS: 80048; 85025; 86850; 86900; 86901; 87635; 88304; 88311

== ENCOUNTER → 2021-09-05 | Outpatient (CLI) | payer OTHER ==
--- NOTE | 2021-09-05 10:34 | US ---
EXAMINATION TYPE: US kidneys/renal and bladder DATE OF EXAM: 09/05/2021 COMPARISON: NONE CLINICAL HISTORY: R94.4 ABN KIDNEY FUNCTION STUDIES. Abnormal Labs, HTN, CVA EXAM MEASUREMENTS: Right Kidney: 9.7 x 6.1 x 6.0 cm Left Kidney: 8.0 x 4.2 x 4.5 cm Right Kidney: Prominent calyces in lower pole Left Kidney: No hydronephrosis or masses seen Bladder: wnl Bilateral Jets seen: Yes There is no evidence for hydronephrosis at this point in time. No nephrolithiasis is seen. No sol s are identified. The urinary bladder is anechoic. Bilateral ureteral jets are seen. IMPRESSION: Mild prominence of the right-sided renal calyces. Otherwise unremarkable study.
== END | disposition home or self-care (01) ==
LOC: RADUSWWP 09:49
DX: R94.4 Abnormal results of kidney function studies (principal); I10 Essential (primary) hypertension
CPT/HCPCS: 76770

== ENCOUNTER 2021-10-22 08:41 | Observation (INO) | payer OTHER, MEDICARE ==
[2021-10-22] MEDS ORDERED: MORPHINE SULFATE 4 MG/ML SYRINGE IVP STA (09:42)
[2021-10-22] MEDS ORDERED: ONDANSETRON 4 MG/2 ML VIAL IVP STA (09:42)
--- NOTE | 2021-10-22 10:33 | XR ---
EXAMINATION TYPE: PA chest and left rib series, 5 views DATE OF EXAM: 10/22/2021 Comparison: 05/03/2021 Clinical History: 65-year-old male fall, pain Findings: Median sternotomy wires are present. Post-CABG clips. The cardiomediastinal silhouette, aorta, and pu lmonary vasculature are within normal limits. Mild interstitial prominence is unchanged. Some strandy atelectasis in the mid and lower lungs. No consolidation, pneumothorax, or pleural effusion. Moderate degenerative change of the left AC joint. Some bony sclerosis at the greater tuberosity of t he left shoulder suggesting chronic rotator cuff tendinopathy. Some subtle cortical irregularity invo lving the left anterior fifth rib. No displaced fracture seen. Impression: Subtle cortical irregularity involving the left anterior fifth rib may be projectional. Correlate for any point tenderness to exclude a subtle nondisplaced rib fracture here. Chronic changes. Some strandy atelectasis. Otherwise, no acute cardiopulmonary process.
--- NOTE | 2021-10-22 10:41 | CT ---
EXAMINATION TYPE: CT brain cspine wo con DATE OF EXAM: 10/22/2021 COMPARISON: CT dated 05/03/2021 HISTORY: Fall. CT DLP: 1536.3 mGy.cm Automated exposure control for dose reduction was used. TECHNIQUE: CT scan of the head and cervical spine are performed without contrast. FINDINGS: Brain: Tiny right inferior cerebellar chronic infarct, appreciated previously. Right pontine hypodensity, po ssibly ischemic and more apparent compared to the previous scan. Small hypodensities are seen in the internal capsule bilaterally more evident on the right side, also appreciated previously and likely r epresenting lacunar infarcts. Mild bilateral cerebral white matter chronic microvascular ischemic dalila nges. No acute intracranial hemorrhage or gross acute cortical infarct. No midline shift, herniation or ronan tricular megaly. Unremarkable basal cisterns, sella and CP angles. No gross space-occupying lesion, v asogenic edema or mass effect. Unremarkable orbits. Clear visualized paranasal sinuses and right mast oid cells. Hypopneumatized left mastoid air cells. No definite acute calvarial bone fracture identifi ed. Cervical spine: Good vertebral alignment without significant anterolisthesis or retrolisthesis. No definite vertebral body collapse or acute displaced fracture. Unremarkable atlantoaxial and atlantooccipital articulati ons. No facet dislocation or significant subluxation. Degenerative changes of the cervical spine with multilevel opposing endplate osteophytosis, multileve l uncovertebral arthropathy and multilevel facet osteoarthropathy. No significant bony central spinal canal stenosis. [id number] left C6-7 neural foraminal stenosis. Extensive arterial atheroscler otic calcifications. Previous sternotomy wire sutures. No paraspinal lesion. IMPRESSION: No acute intracranial posttraumatic sequela or acute calvarial bone fracture. No acute traumatic bony injury of the cervical spine. Chronic and incidental findings as described above.
[2021-10-22 11:40] LABS: Basophils # (A) 0.1 k/uL (0-0.2); Basophils % (A) 1 %; Eosinophils # (A) 0.2 k/uL (0-0.7); Eosinophils % (A) 3 %; HCT 46.2 % (39.0-53.0); HGB 15.6 gm/dL (13.0-17.5); Lymphocytes % (A) 32 %; MCH 30.3 pg (25.0-35.0); MCHC 33.7 g/dL (31.0-37.0); Mean Platelet Volume 8.6; Monocytes # (A) 0.3 k/uL (0-1.0); Monocytes % (A) 6 %; Neutrophils # (A) 3.5 k/uL (1.3-7.7); Neutrophils % (A) 57 %; Platelet Count 138 k/uL (150-450); RBC 5.13 m/uL (4.30-5.90); WBC 6.1 k/uL (3.8-10.6)
--- NOTE | 2021-10-22 11:49 | XR ---
EXAMINATION TYPE: XR Hip LT and AP Pelvis DATE OF EXAM: 10/22/2021 COMPARISON: NONE HISTORY: Pain after recent fall injury. TECHNIQUE: A single AP view of the pelvis is obtained. Two views of the left hip are obtained. FINDINGS: There is no acute fracture/dislocation evident in the pelvis. The hip and sacroiliac join ts appear symmetric and unremarkable. Pubic symphysis is intact. There is left iliac stent identified along with left groin surgical clips. Overlying vascular calcification is present. Two views of left hip show no acute fracture or dislocation. No focal lytic or sclerotic lesion seen in the proximal left femur. The overlying soft tissue is unremarkable. IMPRESSION: There is no acute fracture or dislocation in the pelvis or left hip.
[2021-10-22 11:57] LABS: Albumin 4.2 g/dL (3.5-5.0); Calcium 9.2 mg/dL (8.4-10.2); Total Bilirubin 0.6 mg/dL (0.2-1.3); Total Protein 7.9 g/dL (6.3-8.2)
[2021-10-22 12:01] LABS: Potassium 4.8 mmol/L (3.5-5.1)
[2021-10-22 12:07] LABS: Prothrombin Time 11.1 sec (9.0-12.0)
[2021-10-22 12:32] LABS: Partial Thromboplastin Time 20.1 sec (22.0-30.0)
[2021-10-22] MEDS ORDERED: NALOXONE 0.4 MG/ML 1 ML VIAL IV PRN (13:11)
--- NOTE | 2021-10-22 13:11 | ED ---
General Adult HPI - General Chief complaint: Fall Stated complaint: fall, head injury- on thinners Time Seen by Provider: 10/22/21 09:04 Source: patient, RN notes reviewed Mode of arrival: ambulatory Limitations: no limitations - History of Present Illness Initial comments: 65-year-old male presents emergency Department with chief complaint of multiple falls. Patient states that he had multiple falls this week and he is unsure how he fell he's not sure if he passed out or was dizzy at the time. Story is unclear. States he did strike his head is on blood thinners. Patient complains of left-sided rib pain, hip pain, multiple body aches. Patient denies any shortness of breath but states that he has left sided chest pain he doesn't that he has extensive past medical history. - Related Data Home Medications Medication Instructions Recorded Confirmed Cholecalciferol [Vitamin D3 (25 25 mcg PO DAILY 12/05/14 07/04/21 Mcg = 1000 Iu)] Pentoxifylline [TRENtal] 400 mg PO TID 12/05/14 07/04/21 Docusate [Colace] 100 mg PO BID 03/17/17 07/04/21 Ferrous Sulfate [Iron] 325 mg PO DAILY 03/17/17 07/04/21 PARoxetine HCL [Paxil] 40 mg PO DAILY 03/17/17 07/04/21 traZODone HCL [Desyrel] 50 mg PO HS 03/17/17 07/04/21 Aspirin EC [Ecotrin Low Dose] 81 mg PO DAILY 05/03/21 07/04/21 Atorvastatin [Lipitor] 40 mg PO HS 05/03/21 07/04/21 Cilostazol [Pletal] 100 mg PO BID 05/03/21 07/04/21 Gabapentin [Neurontin] 400 mg PO TID 05/03/21 07/04/21 Acetaminophen [Tylenol] 325 mg PO DAILY 06/26/21 07/04/21 Tamsulosin [Flomax] 0.4 mg PO BID 07/03/21 07/04/21 Previous Rx's Medication Instructions Recorded Ticagrelor [Brilinta] 90 mg PO BID #60 tab 05/07/21 Metoprolol Succinate (ER) [Toprol 25 mg PO DAILY #30 tab 07/06/21 XL] amLODIPine [Norvasc] 10 mg PO PC-LUNCH #0 10/29/21 lisinopriL [Zestril] 10 mg PO BID #0 07/06/21 Allergies Allergy/AdvReac Type Severity Reaction Status Date / Time No Known Allergies Allergy Verified 10/22/21 12:07 Review of Systems ROS Statement: Those systems with pertinent positive or pertinent negative responses have been documented in the HPI. ROS Other: All systems not noted in ROS Statement are negative. 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 bilateral renal artery stenting, balloon angioplasty of coronary artery, open heart surgery 02/2015-double bypass Past Anesthesia/Blood Transfusion Reactions: No Reported Reaction Past Psychological History: Anxiety, Depression Smoking Status: Former smoker - Past Family History Brother(s) Family Medical History: Myocardial Infarction (MD) Father Family Medical History: CVA/TIA, Myocardial Infarction (MD) Additional Family Medical History / Comment(s): ANEURYSM Mother Family Medical History: CVA/TIA, Deep Vein Thrombosis (DVT), Myocardial Infarction (MD) Sister(s) Family Medical History: Cancer, Myocardial Infarction (MD) Additional Family Medical History / Comment(s): 3 sisters- [place] General Exam Limitations: no limitations General appearance: alert, in no apparent distress Head exam: Present: atraumatic, normocephalic, normal inspection Eye exam: Present: normal appearance, PERRL, EOMI. Absent: scleral icterus, conjunctival injection, periorbital swelling ENT exam: Present: normal exam, normal oropharynx, mucous membranes moist Neck exam: Present: normal inspection, full ROM. Absent: tenderness, meningismus, lymphadenopathy Respiratory exam: Present: normal lung sounds bilaterally, chest wall tende rness. Absent: respiratory distress, wheezes, rales, rhonchi, stridor Cardiovascular Exam: Present: regular rate, normal rhythm, normal heart sounds. Absent: systolic murmur, diastolic murmur, rubs, gallop, clicks GI/Abdominal exam: Present: soft, normal bowel sounds. Absent: distended, tenderness, guarding, rebound, rigid Course Vital Signs 10/22/21 10/22/21 08:51 12:07 Temperature 98.0 F Pulse Rate 71 60 Respiratory 18 18 Rate Blood Pressure 171/102 181/80 O2 Sat by Pulse 99 94 L Oximetry Medical Decision Making - Medical Decision Making 65-year-old presented for possible syncopal episode, multiple falls. Patient does not have any definite fractures noted. Patient's found to have's EKG changes from prior EKG and possible syncope. Patient be kept for medical reasons to rule out cardiac arrhythmia, cardiac reasons for syncopal. - Lab Data Result diagrams: 10/22/21 09:44 10/22/21 09:44 Lab Results 10/22/21 10/22/21 10/22/21 Range/Units 09:44 09:44 09:44 WBC 6.1 (3.8-10.6) k/uL RBC 5.13 (4.30-5.90) m/uL Hgb 15.6 (13.0-17.5) gm/dL Hct 46.2 (39.0-53.0) % MCV 90.0 (80.0-100.0) fL MCH 30.3 (25.0-35.0) pg MCHC 33.7 (31.0-37.0) g/dL RDW 14.0 (11.5-15.5) % Plt Count 138 L (150-450) k/uL MPV 8.6 Neutrophils % 57 % Lymphocytes % 32 % Monocytes % 6 % Eosinophils % 3 % Basophils % 1 % Neutrophils # 3.5 (1.3-7.7) k/uL Lymphocytes # 2.0 (1.0-4.8) k/uL Monocytes # 0.3 (0-1.0) k/uL Eosinophils # 0.2 (0-0.7) k/uL Basophils # 0.1 (0-0.2) k/uL PT 11.1 (9.0-12.0) sec INR 1.0 (<1.2) APTT 20.1 L (22.0-30.0) sec Sodium 139 (137-145) mmol/L Potassium 4.8 (3.5-5.1) mmol/L Chloride 110 H (98-107) mmol/L Carbon Dioxide 18 L (22-30) mmol/L Anion Gap 11 mmol/L BUN 16 (9-20) mg/dL Creatinine 1.36 H (0.66-1.25) mg/dL Est GFR (CKD-EPI)AfAm 62 (>60 ml/min/1.73 sqM) Est GFR (CKD-EPI)NonAf 54 (>60 ml/min/1.73 sqM) Glucose 101 H (74-99) mg/dL Calcium 9.2 (8.4-10.2) mg/dL Total Bilirubin 0.6 (0.2-1.3) mg/dL AST 30 (17-59) U/L ALT 12 (4-49) U/L Alkaline Phosphatase 91 (38-126) U/L Troponin I (0.000-0.034) ng/mL Total Protein 7.9 (6.3-8.2) g/dL Albumin 4.2 (3.5-5.0) g/dL 10/22/21 Range/Units 09:44 WBC (3.8-10.6) k/uL RBC (4.30-5.90) m/uL Hgb (13.0-17.5) gm/dL Hct (39.0-53.0) % MCV (80.0-100.0) fL MCH (25.0-35.0) pg MCHC (31.0-37.0) g/dL RDW (11.5-15.5) % Plt Count (150-450) k/uL MPV Neutrophils % % Lymphocytes % % Monocytes % % Eosinophils % % Basophils % % Neutrophils # (1.3-7.7) k/uL Lymphocytes # (1.0-4.8) k/uL Monocytes # (0-1.0) k/uL Eosinophils # (0-0.7) k/uL Basophils # (0-0.2) k/uL PT (9.0-12.0) sec INR (<1.2) APTT (22.0-30.0) sec Sodium (137-145) mmol/L Potassium (3.5-5.1) mmol/L Chloride (98-107) mmol/L Carbon Dioxide (22-30) mmol/L Anion Gap mmol/L BUN (9-20) mg/dL Creatinine (0.66-1.25) mg/dL Est GFR (CKD-EPI)AfAm (>60 ml/min/1.73 sqM) Est GFR (CKD-EPI)NonAf (>60 ml/min/1.73 sqM) Glucose (74-99) mg/dL Calcium (8.4-10.2) mg/dL Total Bilirubin (0.2-1.3) mg/dL AST (17-59) U/L ALT (4-49) U/L Alkaline Phosphatase (38-126) U/L Troponin I 0.018 (0.000-0.034) ng/mL Total Protein (6.3-8.2) g/dL Albumin (3.5-5.0) g/dL Disposition Clinical Impression: Fall, Syncope, Abnormal EKG, Multiple falls Disposition: ADMITTED IP TO THIS HOSP Condition: Fair Referrals: Nav Lopez DO [Primary Care Provider] - 1-2 days
--- NOTE | 2021-10-22 14:57 | P.CRDCN ---
History of Present Illness Consult date: 10/22/21 History of present illness: HISTORY OF PRESENT ILLNESS: This is a 65 year old male with a past medical history significant for CVA, carotid stenosis with previous endarterectomy, peripheral vascular disease, coronary artery disease with previous CABG, hyperlipidemia, and hypertension. Patient follows in the office with Dr. Felder. We have been asked to see the patient in consultation for syncope. Patient examined at the bedside. Patient states he presented to the hospital due to multiple falls. The patient states his left leg has been giving out on him and he has been falling. He denies any syncopal episodes. He currently reports chest pain that is worsened with movement. Patient thinks it may be related to his falls. He states the pain is not the same type of pain he had when he had his CABG. EKG not available at the time of dictation Chest xray subtle cortical irregularity involving the left anterior fifth rib may be projectional. Correlate for any point tenderness to exclude a subtle nondisplaced rib fracture. Chronic changes. Some strandy atelectasis. Otherwise no acute cardio pulmonary process. Laboratory data: WBC 6.1. Hemoglobin 15.6. Platelet count 138. Sodium 139. Potassium 4.8. BUN 16. Creatinine 1.36. Troponin negative 1. Current home cardiac medications include atorvastatin 40 mg daily, Pletal 100 mg twice a day, lisinopril 10 mg twice a day, amlodipine 10 mg daily, Brilinta 90 mg twice a day, metoprolol succinate 25 mg daily, and aspirin 325 mg daily Most recent echocardiogram obtained in April 2021 revealed ejection fraction 40-45%, LV wall hypokinesis, trace mitral regurgitation, and trace tricuspid regurgitation REVIEW OF SYSTEMS: At the time of my exam: CONSTITUTIONAL: Denies fever or chills. HEENT: Denies blurred vision, vision changes, or eye pain. Denies hemoptysis CARDIOVASCULAR: Denies chest pain. Denies orthopnea. Denies PND. Denies palpitations RESPIRATORY: Denies shortness of breath. GASTROINTESTINAL: Denies abdominal pain. Denies nausea or vomiting. HEMATOLOGIC: Denies bleeding disorders. GENITOURINARY: Denies any blood in urine. SKIN: Denies pruitis. Denies rash. PHYSICAL EXAM: VITAL SIGNS: Reviewed. GENERAL: Well-developed in no acute distress. HEENT: Head is normocephalic. Pupils are equal, round. Sclerae anicteric. Mucous membranes of the mouth are moist. Neck supple. No JVD or thyromegaly LUNGS: Respirations even and unlabored. Lungs essentially clear to auscultation bilaterally. HEART: Regular rate and rhythm. S1 and S2 heard. Systolic murmur noted. ABDOMEN: Soft. Nondistended. Nontender. EXTREMITIES: Normal range of motion. No clubbing or cyanosis. Peripheral pulses intact. Trace lower extremity edema NEUROLOGIC: Awake and alert. Oriented x 3. ASSESSMENT: Mechanical falls, no evidence of syncope Chest pain, reproducible with movement, may be secondary to falls Coronary artery disease with previous CABG History of CVA History of carotid stenosis with previous endarterectomy Peripheral vascular disease Hyperlipidemia Hypertension PLAN: Syncope is ruled out. Patient is having mechanical falls secondary to weakness. Obtain EKG Obtain 2D echo to assess cardiac structure and function Resume home cardiac medications Further recommendations pending patient course Nurse practitioner note has been reviewed by physician. Signing provider agrees with the documented findings, assessment, and plan of care. 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 bilateral renal artery stenting, balloon angioplasty of coronary artery, open heart surgery 02/2015-double bypass Past Anesthesia/Blood Transfusion Reactions: No Reported Reaction Past Psychological History: Anxiety, Depression Smoking Status: Former smoker - Past Family History Brother(s) Family Medical History: Myocardial Infarction (RI) Father Family Medical History: CVA/TIA, Myocardial Infarction (RI) Additional Family Medical History / Comment(s): ANEURYSM Mother Family Medical History: CVA/TIA, Deep Vein Thrombosis (DVT), Myocardial Infarction (RI) Sister(s) Family Medical History: Cancer, Myocardial Infarction (RI) Additional Family Medical History / Comment(s): 3 sisters- [place] Medications and Allergies Home Medications Medication Instructions Recorded Confirmed Type Pentoxifylline [TRENtal] 400 mg PO TID 12/05/14 10/22/21 History Docusate [Colace] 100 mg PO BID 03/17/17 10/22/21 History Ferrous Sulfate [Iron] 325 mg PO DAILY 03/17/17 10/22/21 History traZODone HCL [Desyrel] 50 mg PO HS 03/17/17 10/22/21 History Atorvastatin [Lipitor] 40 mg PO HS 05/03/21 10/22/21 History Cilostazol [Pletal] 100 mg PO BID 05/03/21 10/22/21 History Gabapentin [Neurontin] 400 mg PO TID 05/03/21 10/22/21 History Ticagrelor [Brilinta] 90 mg PO BID #60 tab 05/07/21 10/22/21 Rx Tamsulosin [Flomax] 0.4 mg PO BID 07/03/21 10/22/21 History Metoprolol Succinate (ER) [Toprol 25 mg PO DAILY #30 tab 07/06/21 10/22/21 Rx XL] lisinopriL [Zestril] 10 mg PO BID #0 07/06/21 10/22/21 Rx Aspirin 325 mg PO DAILY 10/22/21 10/22/21 History Cholecalciferol [Vitamin D3 (25 25 mcg PO DAILY 10/22/21 10/22/21 History Mcg = 1000 Iu)] DULoxetine HCL [Cymbalta] 30 mg PO DAILY 10/22/21 10/22/21 History amLODIPine [Norvasc] 10 mg PO DAILY 10/22/21 10/22/21 History Allergies Allergy/AdvReac Type Severity Reaction Status Date / Time No Known Allergies Allergy Verified 10/22/21 13:38 Physical Exam Vitals: Vital Signs Temp Pulse Resp BP Pulse Ox 10/22/21 12:07 60 18 181/80 94 L 10/22/21 08:51 98.0 F 71 18 171/102 99 Intake and Output 10/21/21 10/22/21 10/22/21 22:59 06:59 14:59 Other: Weight 79.832 kg Results 10/22/21 09:44 10/22/21 09:44 Cardiac Enzymes 10/22/21 10/22/21 Range/Units 09:44 09:44 AST 30 (17-59) U/L Troponin I 0.018 (0.000-0.034) ng/mL Coagulation 10/22/21 Range/Units 09:44 PT 11.1 (9.0-12.0) sec APTT 20.1 L (22.0-30.0) sec CBC 10/22/21 Range/Units 09:44 WBC 6.1 (3.8-10.6) k/uL RBC 5.13 (4.30-5.90) m/uL Hgb 15.6 (13.0-17.5) gm/dL Hct 46.2 (39.0-53.0) % Plt Count 138 L (150-450) k/uL Comprehensive Metabolic Panel 10/22/21 Range/Units 09:44 Sodium 139 (137-145) mmol/L Potassium 4.8 (3.5-5.1) mmol/L Chloride 110 H (98-107) mmol/L Carbon Dioxide 18 L (22-30) mmol/L BUN 16 (9-20) mg/dL Creatinine 1.36 H (0.66-1.25) mg/dL Glucose 101 H (74-99) mg/dL Calcium 9.2 (8.4-10.2) mg/dL AST 30 (17-59) U/L ALT 12 (4-49) U/L Alkaline Phosphatase 91 (38-126) U/L Total Protein 7.9 (6.3-8.2) g/dL Albumin 4.2 (3.5-5.0) g/dL Current Medications Generic Name Dose Route Start Last Admin Trade Name Freq PRN Reason Stop Dose Admin Hydrocodone Bitart/Acetaminophen 1 each 10/22/21 13:11 Hydrocodone/Apap 5-325mg 1 Each Tab PO Q4HR PRN Moderate Pain Amlodipine Besylate 10 mg 10/22/21 14:30 Amlodipine 10 Mg Tab PO DAILY [facility] Aspirin 81 mg 10/23/21 09:00 Aspirin 81 Mg PO DAILY [facility] Atorvastatin Calcium 40 mg 10/22/21 21:00 Atorvastatin 40 Mg Tab PO HS [facility] Cilostazol 100 mg 10/22/21 21:00 Cilostazol 100 Mg Tab PO BID [facility] Docusate Sodium 100 mg 10/22/21 21:00 Docusate 100 Mg Cap PO BID [facility] Duloxetine HCl 30 mg 10/23/21 09:00 Duloxetine Hcl 30 Mg Capsule.Dr PO DAILY [facility] Lisinopril 10 mg 10/22/21 21:00 Lisinopril 10 Mg Tab PO BID [facility] Naloxone HCl 0.2 mg 10/22/21 13:11 Naloxone 0.4 Mg/Ml 1 Ml Vial IV Q2M PRN Opioid Reversal Pentoxifylline 400 mg 10/22/21 16:00 Pentoxifylline 400 Mg Tablet.Er PO TID [facility] Ticagrelor 90 mg 10/22/21 21:00 Ticagrelor 90 Mg Tab PO BID [facility] Trazodone HCl 50 mg 10/22/21 21:00 Trazodone Hcl 50 Mg Tab PO HS [facility] Intake and Output 10/21/21 10/22/21 10/22/21 22:59 06:59 14:59 Other: Weight 79.832 kg Patient Weight 10/23/21 06:59 Weight 79.832 kg 10/22/21 09:44 10/22/21 09:44
[2021-10-22] MEDS: amLODIPine 10 MG TAB PO SCH (15:09)
[2021-10-22] MEDS: HYDROcodone/APAP 5-325MG 1 EACH TAB PO PRN (15:09)
[2021-10-22] MEDS: GABAPENTIN 400 MG CAP PO SCH ×2 (16:32→21:38)
[2021-10-22] MEDS: PENTOXIFYLLINE 400 MG TABLET.ER PO SCH ×2 (17:10→22:45)
[2021-10-22] MEDS ORDERED: traZODone HCL 50 MG TAB PO SCH (21:00)
[2021-10-22] MEDS ORDERED: ATORVASTATIN 40 MG TAB PO SCH (21:00)
[2021-10-22] MEDS: lisinopriL 10 MG TAB PO SCH (21:38)
[2021-10-22] MEDS: TICAGRELOR 90 MG TAB PO SCH (21:38)
[2021-10-22] MEDS: DOCUSATE 100 MG CAP PO SCH (21:38)
[2021-10-22] MEDS: cilostazoL 100 MG TAB PO SCH (22:45)
--- NOTE | 2021-10-22 22:47 | P.HPIM ---
History of Present Illness H&P Date: 10/22/21 Chief Complaint: fall Patient is a 65-year-old male with a known history of coronary artery disease status post CABG, right carotid Coronary artery disease, hypertension, hyperlipidemia, diet-controlled diabetes type 2, memory impairment, history of [place], obstructive sleep apnea not using CPAP currently, anxiety/depression and previous history of smoking and history of multiple falls in the past presents to ER with complaints of fall and possible syncopal episode. Patient states that yesterday he was walking at home and suddenly his left leg gave way which made him to fall. Patient did hit his head and had a bump on the head which is since resolving.. Patient is also having pain over the left lower rib cage and thought he might have a rib fracture. Patient presents to ER for evaluation. Patient otherwise denies any loss of consciousness. Denies any recent illnesses. No cough or sputum production. No fever no chills. No nausea vomiting abdominal pain or diarrhea. Denies any dysuria or hematuria. CT head and cervical spine showed no acute intracranial posttraumatic sequelae are acute clavicular bone fracture. No acute traumatic bony injury of the cerv ical spine. Chronic and incidental findings. X-ray of the ribs and chest x-ray showed subtle cortical irregularity involving the left anterior fifth rib may be projectional. Correlate for any point tenderness to exclude septal nondisplaced rib fracture here. Chronic changes. Some strandy atelectasis. Otherwise no acute cardiopulmonary process X-ray of the pelvis showed no acute fracture or dislocation. EKG showed sinus rhythm. Moderate intraventricular conduction delay. Laboratory data showed WBC 6.1 hemoglobin 15.6 and platelets 138 Sodium 139 potassium 4.8 chloride 110 bicarb is 18 BUN 16 creatinine 1.36 Liver enzymes are not elevated Coronavirus PCR not detected. Review of Systems Constitutional: Patient denies any fever or chills . No generalized weakness or weight loss. Abdomen: Patient denied nausea vomiting and diarrhea and abdominal pain. Cardiovascular: Left-sided chest pain. no short of breath no palpitations. Respiratory: patient denied any cough or sputum production. No shortness of breath Neurologic: Patient denied any numbness or tingling headache. Musculoskeletal: Patient denies any complaints of joint swelling or deformity. Skin: Negative Psychiatric: Negative Endocrine: No heat or cold intolerance. No recent weight gain. Genitourinary: No dysuria or hematuria. All other 14 point ROS negative except the above Past Medical History Past Medical History: Coronary Artery Disease (CAD), Chest Pain / Angina, COPD, CVA/TIA, Diabetes Mellitus, Hyperlipidemia, Hypertension, Memory Impairment, Myocardial Infarction ([place]), Prostate Disorder, Sleep Apnea/CPAP/BIPAP, Vascular Disorder Additional Past Medical History / Comment(s): Peripheral vascular disease, renal artery stenosis with previous renal artery stenting, insomnia,NEUROPATHY, stroke 05/03/21-left side weakness, migraines, not using CPAP currently, diet control diabetic, 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 bilateral renal artery stenting, balloon angioplasty of coronary artery, open heart surgery 02/2015-double bypass Past Anesthesia/Blood Transfusion Reactions: No Reported Reaction Past Psychological History: Anxiety, Depression Smoking Status: Former smoker - Past Family History Brother(s) Family Medical History: Myocardial Infarction ([place]) Father Family Medical History: CVA/TIA, Myocardial Infarction ([place]) Additional Family Medical History / Comment(s): ANEURYSM Mother Family Medical History: CVA/TIA, Deep Vein Thrombosis (DVT), Myocardial Infarction ([place]) Sister(s) Family Medical History: Cancer, Myocardial Infarction ([place]) Additional Family Medical History / Comment(s): 3 sisters- [place] Medications and Allergies Home Medications Medication Instructions Recorded Confirmed Type Pentoxifylline [TRENtal] 400 mg PO TID 12/05/14 10/22/21 History Docusate [Colace] 100 mg PO BID 03/17/17 10/22/21 History Ferrous Sulfate [Iron] 325 mg PO DAILY 03/17/17 10/22/21 History traZODone HCL [Desyrel] 50 mg PO HS 03/17/17 10/22/21 History Atorvastatin [Lipitor] 40 mg PO HS 05/03/21 10/22/21 History Cilostazol [Pletal] 100 mg PO BID 05/03/21 10/22/21 History Gabapentin [Neurontin] 400 mg PO TID 05/03/21 10/22/21 History Ticagrelor [Brilinta] 90 mg PO BID #60 tab 05/07/21 10/22/21 Rx Tamsulosin [Flomax] 0.4 mg PO BID 07/03/21 10/22/21 History Metoprolol Succinate (ER) [Toprol 25 mg PO DAILY #30 tab 07/06/21 10/22/21 Rx XL] lisinopriL [Zestril] 10 mg PO BID #0 07/06/21 10/22/21 Rx Aspirin 325 mg PO DAILY 10/22/21 10/22/21 History Cholecalciferol [Vitamin D3 (25 25 mcg PO DAILY 10/22/21 10/22/21 History Mcg = 1000 Iu)] DULoxetine HCL [Cymbalta] 30 mg PO DAILY 10/22/21 10/22/21 History amLODIPine [Norvasc] 10 mg PO DAILY 10/22/21 10/22/21 History Allergies Allergy/AdvReac Type Severity Reaction Status Date / Time No Known Allergies Allergy Verified 10/22/21 13:38 Physical Exam Vitals: Vital Signs Temp Pulse Resp BP Pulse Ox 10/22/21 15:11 65 18 189/90 98 10/22/21 12:07 60 18 181/80 94 L 10/22/21 08:51 98.0 F 71 18 171/102 99 Intake and Output 10/22/21 10/22/21 10/22/21 06:59 14:59 22:59 Other: Weight 79.832 kg PHYSICAL EXAMINATION: Patient is lying in the bed comfortably, no acute distress, awake alert and oriented.. HEENT: Normocephalic. Neck is supple. Pupils reactive. Nostrils clear. Oral cavity is moist. Neck reveals no JVD, carotid bruits, or thyromegaly. CHEST EXAMINATION: Trachea is central. Symmetrical expansion. Tenderness of the left anterior chest and diminished sounds left basilar. No wheezing or rhonchi.. CARDIAC: Normal S1, S2 with no gallops. No murmurs ABDOMEN: Soft. Bowel sounds normal. No organomegaly. No abdominal bruits. Extremities: reveal no edema. No clubbing or cyanosis Neurologically awake, alert, oriented x3 with well-coordinated movements. No focal deficits noted Skin: No rash or skin lesions. Psychiatric: Cooperative. Nonsuicidal Musculoskeletal: No joint swelling or deformity. Normal range of motion. Results CBC & Chem 7: 10/22/21 09:44 10/22/21 09:44 Labs: Abnormal Lab Results - Last 24 Hours (Table) 10/22/21 10/22/21 10/22/21 Range/Units 09:44 09:44 09:44 Plt Count 138 L (150-450) k/uL APTT 20.1 L (22.0-30.0) sec Chloride 110 H (98-107) mmol/L Carbon Dioxide 18 L (22-30) mmol/L Creatinine 1.36 H (0.66-1.25) mg/dL Glucose 101 H (74-99) mg/dL Thrombosis Risk Factor Assmnt - DVT/VTE Prophylaxis DVT/VTE Prophylaxis: Pharmacologic Prophylaxis ordered Assessment and Plan Assessment: Status post fall and hit his head. Fall is most likely mechanical. Denied any loss of consciousness. Left-sided chest pain with possible left fifth anterior rib subtle nondisplaced fracture. Chest pain is musculoskeletal. History of rightCarotid endarterectomy Coronary arteries history of CABG History of CVA/TIA History of renal artery stenosis with previous renal artery stent Obstructive sleep apnea not on CPAP Peripheral vascular disease Memory impairment Hypertension Hyperlipidemia Diet-controlled diabetes type 2 COPD not in exacerbation History of smoking Anxiety/depression DVT prophylaxis with heparin subcu Plan: Patient will be continued on telemetry monitoring. Unlikely patient had syncopal episode. No loss of consciousness. 2D echocardiogram was ordered and cardiology has seen the patient. Encourage incentive spirometry. Continue with pain management with [place] and Neurontin. Continue with home medications including aspirin, Plavix, Pletal and [place]. follow closely. Orthostatic vitals will be obtained. PT will be consulted. Time with Patient: Greater than 30
[2021-10-23] MEDS: HEPARIN SODIUM,PORCINE/PF 5,000 UNIT/0.5 ML SYRINGE SQ SCH ×3 (03:30→15:50)
[2021-10-23 06:12] LABS: Glucose,Whole Blood 110 mg/dL (75-99)
[2021-10-23 08:22] LABS: Basophils # (A) 0.1 k/uL (0-0.2); Basophils % (A) 1 %; Eosinophils # (A) 0.1 k/uL (0-0.7); Eosinophils % (A) 2 %; HCT 50.8 % (39.0-53.0); HGB 16.5 gm/dL (13.0-17.5); Lymphocytes # (A) 1.8 k/uL (1.0-4.8); Lymphocytes % (A) 30 %; MCH 30.3 pg (25.0-35.0); MCHC 32.4 g/dL (31.0-37.0); MCV 93.4 fL (80.0-100.0); Mean Platelet Volume 8.5; Monocytes # (A) 0.3 k/uL (0-1.0); Monocytes % (A) 6 %; Neutrophils # (A) 3.6 k/uL (1.3-7.7); Neutrophils % (A) 60 %; Platelet Count 126 k/uL (150-450); RBC 5.44 m/uL (4.30-5.90); WBC 5.9 k/uL (3.8-10.6)
[2021-10-23 08:41] LABS: Calcium 9.5 mg/dL (8.4-10.2)
[2021-10-23 08:45] LABS: Potassium 4.9 mmol/L (3.5-5.1)
[2021-10-23] MEDS: DOCUSATE 100 MG CAP PO SCH (08:49)
[2021-10-23] MEDS: GABAPENTIN 400 MG CAP PO SCH ×2 (08:50→16:01)
[2021-10-23] MEDS: PENTOXIFYLLINE 400 MG TABLET.ER PO SCH (08:50)
[2021-10-23] MEDS: TICAGRELOR 90 MG TAB PO SCH (08:50)
[2021-10-23] MEDS: HYDROcodone/APAP 5-325MG 1 EACH TAB PO PRN ×2 (08:51→12:36)
[2021-10-23] MEDS: lisinopriL 10 MG TAB PO SCH (08:51)
[2021-10-23] MEDS: cilostazoL 100 MG TAB PO SCH (08:51)
[2021-10-23] MEDS: amLODIPine 10 MG TAB PO SCH (08:52)
[2021-10-23] MEDS ORDERED: ASPIRIN 81 MG PO SCH (09:00)
[2021-10-23] MEDS ORDERED: DULoxetine HCL 30 MG CAPSULE.DR PO SCH (09:00)
[2021-10-23] MEDS ORDERED: METOPROLOL SUCCINATE (ER) 25 MG TAB.ER.24H PO SCH (09:45)
[2021-10-23 11:50] LABS: Glucose,Whole Blood 115 mg/dL (75-99)
--- NOTE | 2021-10-23 12:00 | ECHOF ---
Referral Reason:LVF MEASUREMENTS -------- HEIGHT: 170.2 cm WEIGHT: 79.8 kg BP: 151/107 RVIDd: 3.2 cm (< 3.3) IVSd: 1.5 cm (0.6 - 1.1) LVIDd: 4.6 cm (3.9 - 5.3) LVPWd: 1.2 cm (0.6 - 1.1) IVSs: 1.9 cm LVIDs: 3.9 cm LVPWs: 1.6 cm LA Diam: 3.7 cm (2.7 - 3.8) LAESV Index (A-L): 26.93 ml/m Ao Diam: 3.1 cm (2.0 - 3.7) AV Cusp: 1.9 cm (1.5 - 2.6) MV EXCURSION: 11.453 mm (> 18.000) MV EF SLOPE: 33 mm/s (70 - 150) EPSS: 1.0 cm MV E Arun: 0.52 m/s MV DecT: 231 ms MV A Arun: 1.10 m/s MV E/A Ratio: 0.48 RAP: 5.00 mmHg RVSP: 25.25 mmHg FINDINGS -------- Sinus rhythm. This was a technically adequate study. The left ventricular size is normal. There is moderate concentric left ventricular hypertrophy. O verall left ventricular systolic function is mild-moderately impaired with, an EF between 40 - 45 %. Basal posterior LV wall motion is hypokinetic. Basal inferior LV wall motion is hypokinetic. Basal inferoseptal LV wall motion is hypokinetic. The right ventricle is normal in size. Normal LA size by volume 22+/-6 ml/m2. The right atrial size is normal. The aortic valve was not well visualized. Trace amount of aortic regurgitation. Mild mitral annular calcification present. Mild mitral regurgitation is present. The tricuspid valve appears structurally normal. Mild tricuspid regurgitation present. Right vent ricular systolic pressure is normal at < 35 mmHg. The pulmonic valve was not well visualized. The aortic root size is normal. IVC Not well visulized. There is no pericardial effusion. CONCLUSIONS -------- 1. There is moderate concentric left ventricular hypertrophy. 2. Overall left ventricular systolic function is mild-moderately impaired with, an EF between 40 - 45 %. 3. Basal posterior LV wall motion is hypokinetic. 4. Basal inferior LV wall motion is hypokinetic. 5. Basal inferoseptal LV wall motion is hypokinetic. 6. Normal LA size by volume 22+/-6 ml/m2. 7. Trace amount of aortic regurgitation. 8. Mild mitral regurgitation is present. 9. Mild tricuspid regurgitation present. 10. There is no pericardial effusion. CONTAINER W[employer]ER MACHINE: Viola Millan RDCS
--- NOTE | 2021-10-23 13:17 | P.PN ---
Subjective This is a 65 year old male with a past medical history significant for CVA, carotid stenosis with previous endarterectomy, peripheral vascular disease, coronary artery disease with previous CABG, hyperlipidemia, and hypertension. Patient follows in the office with Dr. Felder. We have been asked to see the patient in consultation for syncope. Patient examined at the bedside. Patient states he presented to the hospital due to multiple falls. The patient states his left leg has been giving out on him and he has been falling. He denies any syncopal episodes. He currently reports chest pain that is worsened with movement. Patient thinks it may be related to his falls. EKG revealed sinus rhythm, heart rate 64, T wave inversion in inferior lateral leads. Prior EKGs with similar findings/changes. Troponin negative. Echocardiogram revealed an EF of 4045%, basal posterior, basal inferior, basal Inferior septal wall hypokinetic. Prior Echo in April 2021 with same findings, no acute changes. 10/23/2021 Patient seen and examined at bedside, no acute distress. He denies any chest pain or shortness of breath. Denies any lightheadedness or dizziness. Blood pressure 180/98, heart rate 96, afebrile, oxygen saturation is 97% on room air. He's currently maintained on amlodipine 10 mg daily, aspirin 81 mg daily, ator vastatin 40 mg daily, cilostazol 100 mg, lisinopril 10 mg twice a day, metoprolol succinate 25 mg daily. Telemetry reviewed patient maintaining sinus mechanism heart rate in the 70s with PVCs. Metoprolol 25mg restarted this afternoon PHYSICAL EXAM: VITAL SIGNS: Reviewed. GENERAL: Well-developed in no acute distress. HEENT: . Neck supple. No JVD LUNGS: Respirations even and unlabored. Lungs essentially clear to auscultation bilaterally. HEART: Regular rate and rhythm. S1 and S2 heard. Systolic murmur noted. ABDOMEN: Soft. Nondistended. Nontender. EXTREMITIES: Normal range of motion. No clubbing or cyanosis. Peripheral pulses intact. Trace lower extremity edema NEUROLOGIC: Awake and alert. Oriented x 3. ASSESSMENT: Mechanical falls, no evidence of syncope Chest pain, reproducible with movement, may be secondary to falls Coronary artery disease with previous CABG History of CVA History of carotid stenosis with previous endarterectomy Peripheral vascular disease Hyperlipidemia Hypertension Chronic kidney disease PLAN: Syncope is ruled out. Patient is having mechanical falls secondary to weakness. EKG and Echocardiogram reviewed with no changes. Troponin negative. Telemetry reviewed, patient in sinus mechanism with PVCs no arrhythmia, tachy-thaddeus arrhythmia or significant pauses noted. Metoprolol succinate restarted this afternoon. Patient's home medications have been resumed. If blood pressure remains elevated can add hydralazine From a cardiology perspective, no further inpatient workup at this time. We will follow the patient as needed. Please reconsult if needed. Patient to [facility] outpatient with Dr. Felder Nurse practitioner note has been reviewed by physician. Signing provider agrees with the documented findings, assessment, and plan of care. Objective - Vital Signs Vital signs: Vital Signs Temp 98.7 F 10/23/21 04:47 Pulse 96 10/23/21 04:47 Resp 18 10/23/21 04:47 BP 180/98 10/23/21 04:47 Pulse Ox 97 10/23/21 04:47 Intake & Output 10/22/21 10/23/21 10/23/21 18:59 06:59 18:59 Intake Total 180 Balance 180 Weight 79.832 kg Intake: Oral 180 - Labs CBC & Chem 7: 10/23/21 07:54 10/23/21 07:54 Labs: Abnormal Lab Results - Last 24 Hours (Table) 10/23/21 10/23/21 10/23/21 Range/Units 06:10 07:54 07:54 Plt Count 126 L (150-450) k/uL Chloride 108 H (98-107) mmol/L Creatinine 1.33 H (0.66-1.25) mg/dL Glucose 134 H (74-99) mg/dL POC Glucose (mg/dL) 110 H (75-99) mg/dL 10/23/21 Range/Units 11:48 Plt Count (150-450) k/uL Chloride (98-107) mmol/L Creatinine (0.66-1.25) mg/dL Glucose (74-99) mg/dL POC Glucose (mg/dL) 115 H (75-99) mg/dL
[2021-10-23 13:19] VITALS: RESP 16
[2021-10-23 15:36] VITALS: BP 161/85; PULSE 90; TEMP 98
== END 2021-10-23 16:10 | disposition home or self-care (01) ==
LOC: EC 08:41 → 1SOBS 13:07 → 4SSUR 10-23 01:11 → 6NMEDSUR 10-23 02:10 → 3SCARD 10-23 03:30
PROVIDERS: ADMIT Internal Medicine; ATTEND Internal Medicine
DX: R53.1 Weakness (principal); R07.89 Other chest pain; R07.81 Pleurodynia; M25.552 Pain in left hip; I25.10 Atherosclerotic heart disease of native coronary artery without angina pectoris; J44.9 Chronic obstructive pulmonary disease, unspecified; E78.5 Hyperlipidemia, unspecified; I10 Essential (primary) hypertension; I25.2 Old myocardial infarction; R41.3 Other amnesia; E11.51 Type 2 diabetes mellitus with diabetic peripheral angiopathy without gangrene; G47.00 Insomnia, unspecified; I69.354 Hemiplegia and hemiparesis following cerebral infarction affecting left non-dominant side; E11.40 Type 2 diabetes mellitus with diabetic neuropathy, unspecified; I70.1 Atherosclerosis of renal artery; F41.9 Anxiety disorder, unspecified; F32.A Depression, unspecified; R94.31 Abnormal electrocardiogram [ECG] [EKG]; S09.90XA Unspecified injury of head, initial encounter; I12.9 Hypertensive chronic kidney disease with stage 1 through stage 4 chronic kidney disease, or unspecified chronic kidney disease; N18.9 Chronic kidney disease, unspecified; E11.22 Type 2 diabetes mellitus with diabetic chronic kidney disease; I65.29 Occlusion and stenosis of unspecified carotid artery; I45.9 Conduction disorder, unspecified; G47.33 Obstructive sleep apnea (adult) (pediatric); G43.909 Migraine, unspecified, not intractable, without status migrainosus; G62.9 Polyneuropathy, unspecified; N42.9 Disorder of prostate, unspecified; I08.1 Rheumatic disorders of both mitral and tricuspid valves; W19.XXXA Unspecified fall, initial encounter; Z20.822 Contact with and (suspected) exposure to COVID-19; Z53.29 Procedure and treatment not carried out because of patient's decision for other reasons; Z79.899 Other long term (current) drug therapy; Z79.82 Long term (current) use of aspirin; Z79.02 Long term (current) use of antithrombotics/antiplatelets; Z87.891 Personal history of nicotine dependence; Z95.828 Presence of other vascular implants and grafts; Z95.1 Presence of aortocoronary bypass graft; R29.6 Repeated falls; Z98.61 Coronary angioplasty status; Z71.9 Counseling, unspecified; Z82.49 Family history of ischemic heart disease and other diseases of the circulatory system; Z82.3 Family history of stroke; Z80.9 Family history of malignant neoplasm, unspecified
CPT/HCPCS: 96372 ×2; 96374; 96375; 99285; 36415; 93005; 93306; 97162; 80053; 80048; 84484; 85025 ×2; 85610; 85730; 87635; 71101; 73502; 72125; 70450; G0378 ×4; J2270; J2405; J1644

== ENCOUNTER 2022-04-04 10:56 | Inpatient (IN) | payer OTHER, MEDICARE ==
[2022-04-04] MEDS ORDERED: SODIUM CHLORIDE 0.9% 1,000 ML IV STA (11:23)
[2022-04-04] MEDS ORDERED: ACETAMINOPHEN TAB 325 MG TAB PO STA (11:24)
[2022-04-04 11:37] LABS: Basophils # (A) 0.1 k/uL (0-0.2); Basophils % (A) 1 %; Eosinophils # (A) 0.2 k/uL (0-0.7); Eosinophils % (A) 3 %; HCT 40.6 % (39.0-53.0); HGB 13.3 gm/dL (13.0-17.5); Lymphocytes # (A) 1.4 k/uL (1.0-4.8); Lymphocytes % (A) 27 %; MCH 29.3 pg (25.0-35.0); MCHC 32.6 g/dL (31.0-37.0); MCV 89.7 fL (80.0-100.0); Mean Platelet Volume 9.3; Monocytes # (A) 0.2 k/uL (0-1.0); Monocytes % (A) 4 %; Neutrophils # (A) 3.3 k/uL (1.3-7.7); Neutrophils % (A) 63 %; Platelet Count 201 k/uL (150-450); RBC 4.53 m/uL (4.30-5.90); RDW 14.6 % (11.5-15.5); WBC 5.2 k/uL (3.8-10.6)
--- NOTE | 2022-04-04 12:08 | XR ---
EXAMINATION TYPE: XR chest 2V DATE OF EXAM: 04/04/2022 COMPARISON: 10/22/2021 HISTORY: 66 year-old male shortness of breath, elevated blood pressure, difficulty breathing TECHNIQUE: PA and lateral views FINDINGS: Heart borderline enlarged. Median sternotomy wires and postsurgical clips in the mediastinum. Interst itial prominence appears increased. Trace pleural effusion on the lateral view. No richy consolidatio n. Similar eventration anterior right hemidiaphragm. IMPRESSION: Previous CABG. Now borderline cardiomegaly, interstitial prominence, and trace pleural effusions. Cor relate to exclude mild CHF.
--- NOTE | 2022-04-04 12:14 | ED ---
SOB HPI <Uli Carrasco - Last Filed: 04/04/22 15:35> - General Source: patient Mode of arrival: ambulatory Limitations: no limitations <Asia Lemus - Last Filed: 04/04/22 19:07> - General Chief Complaint: Shortness of Breath Stated Complaint: Passed out,headache,Chest pain Time Seen by Provider: 04/04/22 11:10 - History of Present Illness Initial Comments: Patient is a 66-year-old male presenting with chief complaint of shortness of breath. Patient has history of diabetes, hypertension, hyperlipidemia, previous [place], CAD. Patient states that symptoms have been ongoing for the last 2 weeks. He also admits to headache and body aches. Shortness of breath is worse with exertion. Patient also states that he lost one of his blood pressure medications, but he is unsure which one he lost. Patient is a somewhat unreliable historian. He denies chest pain, cough, fever, chills, abdominal pain, nausea, vomiting, neck pain, extremity pain. (Asia Lemus) - Related Data Home Medications Medication Instructions Recorded Confirmed Ferrous Sulfate [Iron] 325 mg PO DAILY 03/17/17 04/04/22 traZODone HCL [Desyrel] 50 mg PO HS 03/17/17 04/04/22 Atorvastatin [Lipitor] 40 mg PO HS 05/03/21 04/04/22 Gabapentin [Neurontin] 400 mg PO TID 05/03/21 04/04/22 cilostazoL [Pletal] 100 mg PO BID 05/03/21 04/04/22 Tamsulosin [Flomax] 0.4 mg PO BID 07/03/21 04/04/22 Aspirin 325 mg PO DAILY 10/22/21 04/04/22 Cholecalciferol [Vitamin D3 (25 25 mcg PO DAILY 10/22/21 04/04/22 Mcg = 1000 Iu)] amLODIPine [Norvasc] 10 mg PO DAILY 10/22/21 04/04/22 DULoxetine HCL [Cymbalta] 60 mg PO DAILY 04/04/22 04/04/22 Previous Rx's Medication Instructions Recorded Ticagrelor [Brilinta] 90 mg PO BID #60 tab 05/07/21 Metoprolol Succinate (ER) [Toprol 25 mg PO DAILY #30 tab 10/29/21 XL] lisinopriL [Zestril] 10 mg PO BID #0 07/06/21 Allergies Allergy/AdvReac Type Severity Reaction Status Date / Time No Known Allergies Allergy Verified 04/04/22 13:36 Review of Systems ROS Other: All systems not noted in ROS Statement are negative. <Uli Carrasco - Last Filed: 04/04/22 15:35> ROS Other: All systems not noted in ROS Statement are negative. <Asia Lemus - Last Filed: 04/04/22 19:07> ROS Statement: Those systems with pertinent positive or pertinent negative responses have been documented in the HPI. 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 bilateral renal artery stenting, balloon angioplasty of coronary artery, open heart surgery 02/2015-double bypass Past Anesthesia/Blood Transfusion Reactions: No Reported Reaction Past Psychological History: Anxiety, Depression Smoking Status: Former smoker Past Alcohol Use History: None Reported Past Drug Use History: Marijuana - Past Family History Brother(s) Family Medical History: Myocardial Infarction ([place]) Father Family Medical History: CVA/TIA, Myocardial Infarction ([place]) Additional Family Medical History / Comment(s): ANEURYSM Mother Family Medical History: CVA/TIA, Deep Vein Thrombosis (DVT), Myocardial Infarction ([place]) Sister(s) Family Medical History: Cancer, Myocardial Infarction ([place]) Additional Family Medical History / Comment(s): 3 sisters- [place] <Asia Lemus - Last Filed: 04/04/22 19:07> General Exam Limitations: no limitations General appearance: alert, in no apparent distress Head exam: Present: atraumatic, normocephalic, normal inspection Eye exam: Present: normal appearance, EOMI. Absent: scleral icterus, periorbital swelling Neck exam: Present: normal inspection Respiratory exam: Present: rales (bases). Absent: respiratory distress, wheezes, rhonchi, stridor Cardiovascular Exam: Present: regular rate, normal rhythm, normal heart sounds. Absent: systolic murmur, diastolic murmur, rubs, gallop, clicks Neurological exam: Present: alert, oriented X3, CN II-XII intact Psychiatric exam: Present: normal affect, normal mood Skin exam: Present: warm, dry, intact, normal color. Absent: rash <Asia Lemus - Last Filed: 04/04/22 19:07> Course <Uli Carrasco - Last Filed: 04/04/22 15:35> Vital Signs 04/04/22 04/04/22 04/04/22 11:00 11:28 12:11 Temperature 98.2 F 98 F Pulse Rate 88 65 65 Pulse Rate [ Pulse Oximetery ] Respiratory 18 16 16 Rate Blood Pressure 178/102 150/104 151/112 Blood Pressure [Right Arm] O2 Sat by Pulse 97 98 98 Oximetry 04/04/22 04/04/22 04/04/22 12:42 14:43 15:34 Temperature 96 F L Pulse Rate 85 75 100 Pulse Rate [ Pulse Oximetery ] Respiratory 18 16 16 Rate Blood Pressure 172/114 152/98 143/92 Blood Pressure [Right Arm] O2 Sat by Pulse 95 97 96 Oximetry 04/04/22 04/04/22 16:00 16:28 Temperature 97 F L Pulse Rate 98 Pulse Rate [ 107 H Pulse Oximetery ] Respiratory 16 16 Rate Blood Pressure 150/98 Blood Pressure 166/99 [Right Arm] O2 Sat by Pulse 97 98 Oximetry - Reevaluation(s) Reevaluation #1: 04/04/22 14:15 I did personally evaluate this patient. Patient also complains of shortness of breath is been intermittent over the past couple weeks today he started developing exertional dyspnea with anterior chest discomfort pressure-like pain 7/10 severity he also has orthopnea. No fevers chills or sweats. EKG performed showed some evidence of nonspecific ST change in V2 and V3 compared with old EKGs. The patient was started on nitroglycerin as well as heparin. I did consult Dr. Shepard who did come the emergency department see the patient. I also discussed the case with Dr. Bragg. On my clinical exam he did demonstrate evidence of rales in the bases with slightly diminished breath sounds she is consistent with the findings of pulmonary vascular congestion. He did demonstrate evidence of mild elevation of troponin also elevation of d-dimer. CT angios pending at this time. Patient will be admitted for inpatient evaluation and treatment. I do agree with the assessment and plan. (Uli Carrasco) Reevaluation #2: 04/04/22 15:35 CT chest shows no evidence of pulmonary emboli small bilateral pleural effusions noted please see the complete report (Uli Carrasco) Medical Decision Making - Lab Data Result diagrams: 04/04/22 11:04/04/22 12:06 <Uli Carrasco - Last Filed: 04/04/22 15:35> - Lab Data Result diagrams: 04/04/22 11:04/04/22 12:06 - EKG Data EKG shows normal: sinus rhythm <Asia Lemus - Last Filed: 04/04/22 19:07> - Medical Decision Making Patient is a 66-year-old male presenting with chief complaint of shortness of breath. Symptoms have been ongoing for the last 2 weeks. He also admits to headache and body aches. He admits to shortness of breath with exertion or laying down. On examination there are some rales at the lung bases. He admits to some chest tightness. Patient's troponin is elevated at 0.078, EKG showed nonspecific ST changes in leads V2 and V3. I discussed these findings with my attending Dr. Carrasco. Heparin was started, patient was given nitro and morphine. Dr. Carrasco spoke with Dr. Shepard and Dr. Bragg. [employer] with cardiology came down to evaluate the patient as well as Dr. Shepard. Patient's BNP is 25,000. D-dimer is 1.52. Chest x-ray shows evidence of CHF with borderline cardiomegaly, interstitial prominence, and trace pleural effusions. CTA of the chest shows no evidence of pulmonary embolism. Patient was started on Lasix. Patient was admitted for inpatient evaluation and management. I discussed this case in the plan in detail with my attending Dr. Carrasco. (Cosmo Lemus - Lab Data Lab Results 04/04/22 04/04/22 04/04/22 Range/Units 11:26 11:26 11:26 WBC 5.2 (3.8-10.6) k/uL RBC 4.53 (4.30-5.90) m/uL Hgb 13.3 (13.0-17.5) gm/dL Hct 40.6 (39.0-53.0) % MCV 89.7 (80.0-100.0) fL MCH 29.3 (25.0-35.0) pg MCHC 32.6 (31.0-37.0) g/dL RDW 14.6 (11.5-15.5) % Plt Count 201 (150-450) k/uL MPV 9.3 Neutrophils % 63 % Lymphocytes % 27 % Monocytes % 4 % Eosinophils % 3 % Basophils % 1 % Neutrophils # 3.3 (1.3-7.7) k/uL Lymphocytes # 1.4 (1.0-4.8) k/uL Monocytes # 0.2 (0-1.0) k/uL Eosinophils # 0.2 (0-0.7) k/uL Basophils # 0.1 (0-0.2) k/uL PT 11.9 (9.0-12.0) sec INR 1.1 (<1.2) APTT 23.9 (22.0-30.0) sec D-Dimer (<0.60) mg/L FEU Sodium (137-145) mmol/L Potassium (3.5-5.1) mmol/L Chloride (98-107) mmol/L Carbon Dioxide (22-30) mmol/L Anion Gap mmol/L BUN (9-20) mg/dL Creatinine (0.66-1.25) mg/dL Est GFR (CKD-EPI)AfAm (>60 ml/min/1.73 sqM) Est GFR (CKD-EPI)NonAf (>60 ml/min/1.73 sqM) Glucose (74-99) mg/dL Plasma Lactic Acid Mike (0.7-2.0) mmol/L Calcium (8.4-10.2) mg/dL Magnesium (1.6-2.3) mg/dL Total Bilirubin (0.2-1.3) mg/dL AST (17-59) U/L ALT (4-49) U/L Alkaline Phosphatase (38-126) U/L Troponin I (0.000-0.034) ng/mL NT-Pro-B Natriuret Pep pg/mL Total Protein (6.3-8.2) g/dL Albumin (3.5-5.0) g/dL Urine Color Urine Appearance (Clear) Urine pH (5.0-8.0) Ur Specific [place] (1.001-1.035) Urine Protein (Negative) Urine Glucose (UA) (Negative) Urine Ketones (Negative) Urine Blood (Negative) Urine Nitrite (Negative) Urine Bilirubin (Negative) Urine Urobilinogen (<2.0) mg/dL Ur Leukocyte Esterase (Negative) Coronavirus (PCR) Not Detected (Not Detectd) Influenza Type A RNA (Not Detectd) Influenza Type B (PCR) (Not Detectd) 04/04/22 04/04/22 04/04/22 Range/Units 11:26 11:26 11:36 WBC (3.8-10.6) k/uL RBC (4.30-5.90) m/uL Hgb (13.0-17.5) gm/dL Hct (39.0-53.0) % MCV (80.0-100.0) fL MCH (25.0-35.0) pg MCHC (31.0-37.0) g/dL RDW (11.5-15.5) % Plt Count (150-450) k/uL MPV Neutrophils % % Lymphocytes % % Monocytes % % Eosinophils % % Basophils % % Neutrophils # (1.3-7.7) k/uL Lymphocytes # (1.0-4.8) k/uL Monocytes # (0-1.0) k/uL Eosinophils # (0-0.7) k/uL Basophils # (0-0.2) k/uL PT (9.0-12.0) sec INR (<1.2) APTT (22.0-30.0) sec D-Dimer 1.52 H (<0.60) mg/L FEU Sodium (137-145) mmol/L Potassium (3.5-5.1) mmol/L Chloride (98-107) mmol/L Carbon Dioxide (22-30) mmol/L Anion Gap mmol/L BUN (9-20) mg/dL Creatinine (0.66-1.25) mg/dL Est GFR (CKD-EPI)AfAm (>60 ml/min/1.73 sqM) Est GFR (CKD-EPI)NonAf (>60 ml/min/1.73 sqM) Glucose (74-99) mg/dL Plasma Lactic Acid Mike 1.3 (0.7-2.0) mmol/L Calcium (8.4-10.2) mg/dL Magnesium (1.6-2.3) mg/dL Total Bilirubin (0.2-1.3) mg/dL AST (17-59) U/L ALT (4-49) U/L Alkaline Phosphatase (38-126) U/L Troponin I (0.000-0.034) ng/mL NT-Pro-B Natriuret Pep 27769 pg/mL Total Protein (6.3-8.2) g/dL Albumin (3.5-5.0) g/dL Urine Color Urine Appearance (Clear) Urine pH (5.0-8.0) Ur Specific [place] (1.001-1.035) Urine Protein (Negative) Urine Glucose (UA) (Negative) Urine Ketones (Negative) Urine Blood (Negative) Urine Nitrite (Negative) Urine Bilirubin (Negative) Urine Urobilinogen (<2.0) mg/dL Ur Leukocyte Esterase (Negative) Coronavirus (PCR) (Not Detectd) Influenza Type A RNA (Not Detectd) Influenza Type B (PCR) (Not Detectd) 04/04/22 04/04/22 04/04/22 Range/Units 11:36 12:06 12:06 WBC (3.8-10.6) k/uL RBC (4.30-5.90) m/uL Hgb (13.0-17.5) gm/dL Hct (39.0-53.0) % MCV (80.0-100.0) fL MCH (25.0-35.0) pg MCHC (31.0-37.0) g/dL RDW (11.5-15.5) % Plt Count (150-450) k/uL MPV Neutrophils % % Lymphocytes % % Monocytes % % Eosinophils % % Basophils % % Neutrophils # (1.3-7.7) k/uL Lymphocytes # (1.0-4.8) k/uL Monocytes # (0-1.0) k/uL Eosinophils # (0-0.7) k/uL Basophils # (0-0.2) k/uL PT (9.0-12.0) sec INR (<1.2) APTT (22.0-30.0) sec D-Dimer (<0.60) mg/L FEU Sodium 142 (137-145) mmol/L Potassium 4.0 (3.5-5.1) mmol/L Chloride 115 H (98-107) mmol/L Carbon Dioxide 21 L (22-30) mmol/L Anion Gap 6 mmol/L BUN 11 (9-20) mg/dL Creatinine 1.23 (0.66-1.25) mg/dL Est GFR (CKD-EPI)AfAm 70 (>60 ml/min/1.73 sqM) Est GFR (CKD-EPI)NonAf 60 (>60 ml/min/1.73 sqM) Glucose 128 H (74-99) mg/dL Plasma Lactic Acid Mike (0.7-2.0) mmol/L Calcium 8.4 (8.4-10.2) mg/dL Magnesium 2.0 (1.6-2.3) mg/dL Total Bilirubin 0.4 (0.2-1.3) mg/dL AST 27 (17-59) U/L ALT 48 (4-49) U/L Alkaline Phosphatase 93 (38-126) U/L Troponin I 0.078 H* (0.000-0.034) ng/mL NT-Pro-B Natriuret Pep pg/mL Total Protein 6.4 (6.3-8.2) g/dL Albumin 3.5 (3.5-5.0) g/dL Urine Color Urine Appearance (Clear) Urine pH (5.0-8.0) Ur Specific [place] (1.001-1.035) Urine Protein (Negative) Urine Glucose (UA) (Negative) Urine Ketones (Negative) Urine Blood (Negative) Urine Nitrite (Negative) Urine Bilirubin (Negative) Urine Urobilinogen (<2.0) mg/dL Ur Leukocyte Esterase (Negative) Coronavirus (PCR) (Not Detectd) Influenza Type A RNA Not Detected (Not Detectd) Influenza Type B (PCR) Not Detected (Not Detectd) 04/04/22 Range/Units 13:10 WBC (3.8-10.6) k/uL RBC (4.30-5.90) m/uL Hgb (13.0-17.5) gm/dL Hct (39.0-53.0) % MCV (80.0-100.0) fL MCH (25.0-35.0) pg MCHC (31.0-37.0) g/dL RDW (11.5-15.5) % Plt Count (150-450) k/uL MPV Neutrophils % % Lymphocytes % % Monocytes % % Eosinophils % % Basophils % % Neutrophils # (1.3-7.7) k/uL Lymphocytes # (1.0-4.8) k/uL Monocytes # (0-1.0) k/uL Eosinophils # (0-0.7) k/uL Basophils # (0-0.2) k/uL PT (9.0-12.0) sec INR (<1.2) APTT (22.0-30.0) sec D-Dimer (<0.60) mg/L FEU Sodium (137-145) mmol/L Potassium (3.5-5.1) mmol/L Chloride (98-107) mmol/L Carbon Dioxide (22-30) mmol/L Anion Gap mmol/L BUN (9-20) mg/dL Creatinine (0.66-1.25) mg/dL Est GFR (CKD-EPI)AfAm (>60 ml/min/1.73 sqM) Est GFR (CKD-EPI)NonAf (>60 ml/min/1.73 sqM) Glucose (74-99) mg/dL Plasma Lactic Acid Mike (0.7-2.0) mmol/L Calcium (8.4-10.2) mg/dL Magnesium (1.6-2.3) mg/dL Total Bilirubin (0.2-1.3) mg/dL AST (17-59) U/L ALT (4-49) U/L Alkaline Phosphatase (38-126) U/L Troponin I (0.000-0.034) ng/mL NT-Pro-B Natriuret Pep pg/mL Total Protein (6.3-8.2) g/dL Albumin (3.5-5.0) g/dL Urine Color Yellow Urine Appearance Clear (Clear) Urine pH 5.5 (5.0-8.0) Ur Specific [place] 1.012 (1.001-1.035) Urine Protein Negative (Negative) Urine Glucose (UA) Negative (Negative) Urine Ketones Negative (Negative) Urine Blood Negative (Negative) Urine Nitrite Negative (Negative) Urine Bilirubin Negative (Negative) Urine Urobilinogen <2.0 (<2.0) mg/dL Ur Leukocyte Esterase Negative (Negative) Coronavirus (PCR) (Not Detectd) Influenza Type A RNA (Not Detectd) Influenza Type B (PCR) (Not Detectd) - EKG Data EKG Comments: Sinus rhythm with frequent ventricular premature complexes. Rate of 95. There is nonspecific ST and T-wave abnormalities. ST changes in leads V2 and V3 when compared to EKG from 10/22/21. T-wave inversions in V4 V5 V6 as well as lead I, II, III seen on previous EKG. These EKGs were also shown to and interpreted by my attending Dr. Carrasco. (Asia Lemus) Critical Care Time Critical Care Time: Yes Total Critical Care Time: 35 <Asia Lemus - Last Filed: 04/04/22 19:07> Disposition <Uli Carrasco - Last Filed: 04/04/22 15:35> Time of Disposition: 14:08 Decision to Admit Reason: Admit from EC Decision Date: 04/04/22 Decision Time: 14:08 <Asia Lemus - Last Filed: 04/04/22 19:07> Clinical Impression: Congestive heart failure, Elevated troponin Disposition: ADMITTED IP TO THIS [facility] Condition: Serious
[2022-04-04 12:18] LABS: INR 1.1 (<1.2); Partial Thromboplastin Time 23.9 sec (22.0-30.0); Prothrombin Time 11.9 sec (9.0-12.0)
[2022-04-04] MEDS ORDERED: hydrALAZINE HCL 20 MG/ML 1 ML VIAL IVP STA (12:28)
[2022-04-04 12:30] LABS: Albumin 3.5 g/dL (3.5-5.0); Calcium 8.4 mg/dL (8.4-10.2); Total Bilirubin 0.4 mg/dL (0.2-1.3); Total Protein 6.4 g/dL (6.3-8.2)
[2022-04-04] MEDS ORDERED: HEPARIN SODIUM 1,000 UN/ML (10ML VL) IV PRN (13:04)
[2022-04-04] MEDS ORDERED: HEPARIN SODIUM 1,000 UN/ML (10ML VL) IV ONE ×2 (13:04→14:00)
[2022-04-04] MEDS ORDERED: NITROGLYCERIN OINT 1 INCH/GM PACKET TOPICAL STA ×3 (13:05→14:00)
[2022-04-04] MEDS ORDERED: MORPHINE SULFATE 4 MG/ML SYRINGE IVP STA (13:32)
[2022-04-04] MEDS ORDERED: FUROSEMIDE 10 MG/ML 4 ML VIAL IV STA (13:36)
[2022-04-04 13:38] LABS: Appearance,Urine Clear (Clear); Bilirubin,Urine Negative (Negative); Blood,Urine Negative (Negative); Color,Urine Yellow; Glucose,Urine (UA) Negative (Negative); Ketones,Urine Negative (Negative); Leukocyte Esterase,Urine Negative (Negative); Nitrite,Urine Negative (Negative); PH, Urine 5.5 (5.0-8.0); Protein,Urine Negative (Negative); Specific Gravity,Urine 1.012 (1.001-1.035); Urobilinogen,Urine <2.0 mg/dL (<2.0)
[2022-04-04] MEDS: HEPARIN SOD,PORK IN 0.45% NACL 25,000 UNIT in 0.45% NACL 1 250ML.BAG IV SCH (13:56)
[2022-04-04] MEDS ORDERED: NALOXONE 0.4 MG/ML 1 ML VIAL IV PRN (14:03)
[2022-04-04] MEDS ORDERED: MORPHINE SULFATE 4 MG/ML SYRINGE IV PRN (14:03)
[2022-04-04] MEDS ORDERED: FUROSEMIDE 10 MG/ML 2 ML VIAL IV STA (14:04)
[2022-04-04] MEDS: amLODIPine 10 MG TAB PO SCH (14:10)
--- NOTE | 2022-04-04 14:18 | P.CRDCN ---
History of Present Illness History of present illness: This is a 66 year old male with a past medical history significant for CVA, carotid stenosis with previous endarterectomy, peripheral vascular disease, ischemic cardiomyopathy, coronary artery disease with previous CABG 02/2015, previous stenting in 1983 and , hyperlipidemia, and hypertension. Patient follows in the office with Dr. Felder. We have been asked to see the patient in consultation for elevated troponin. Patient presents to the ER with chest pain and shortness of breath and cough. Patient states he has been having intermittent chest pain for 3 weeks, has progressively worsened. His pain is located mid-sternal radiating up to his bilateral jaw and back. He went for a walk today and did have exertional chest pain and shortness of breath. He had associated nausea. He also endorses worsening shortness of breath with activity and at rest, with symptoms of orthopnea. Denies emesis, syncope or near syncope, or diaphoresis. Denies any fever, chills. No specific alleviating factors. His chest pain has improved since admission. He was started on IV heparin drip. D-dimer also elevated at 1.52, plan for CTA chest. DIAGNOSTICS: EKG sinus rhythm HR 95, nonspecific ST history of abnormalities, PVCs, no acute ischemia noted. EKG improved from prior EKG in 10/2021 Chest xray mild congestive heart failure, previous CABG Laboratory data: CBC unremarkable, d-dimer 1.52, sodium 142, potassium 4.0, BUN 11, serum creatinine 1.23, magnesium 2.0, troponin 0.07, BNP 25,000 Current home cardiac medications include atorvastatin 40 mg daily, Pletal 100 mg twice a day, lisinopril 10 mg twice a day, amlodipine 10 mg daily, Brilinta 90 mg twice a day, metoprolol succinate 25 mg daily, and aspirin 325 mg daily Most recent echocardiogram 10/2021 revealed EF of 4045 percent, basal wall hypokinetic, mild mitral regurgitation, mild tricuspid regurgitation Most recent cardiac cath in 01/2015 revealed left main 60% heavily calcified, LAD 50% ramus intermedius free of significant disease circumflex 95% stenosis. 95% proximal ostial RCA diffuse disease distal branches REVIEW OF SYSTEMS: At the time of my exam: CONSTITUTIONAL: Denies fever or chills. HEENT: Denies blurred vision, vision changes, or eye pain. Denies hemoptysis CARDIOVASCULAR: Reports chest pain. Reports orthopnea. Denies PND. Denies palpitations RESPIRATORY: Reports shortness of breath. +cough GASTROINTESTINAL: Denies abdominal pain. Denies nausea or vomiting. HEMATOLOGIC: Denies bleeding disorders. GENITOURINARY: Denies any blood in urine. SKIN: Denies pruitis. Denies rash. PHYSICAL EXAM: VITAL SIGNS: Reviewed. GENERAL: Well-developed in no acute distress. HEENT: Head is normocephalic. Pupils are equal, round. Sclerae anicteric. Mucous membranes of the mouth are moist. Neck supple. No JVD LUNGS: Respirations even and unlabored. Lungs diminished to auscultation bilaterally. HEART: Regular rate and rhythm. S1 and S2 heard. Systolic murmur noted. ABDOMEN: Soft. Nondistended. Nontender. EXTREMITIES: Normal range of motion. No clubbing or cyanosis. Peripheral pulses intact. Trace lower extremity edema NEUROLOGIC: Awake and alert. Oriented x 3. ASSESSMENT: Chest pain with elevated troponin, concern for NSTEMI Shortness of breath Elevated D-dimer rule out PE Acute on chronic heart failure with mildly reduced ejection fraction, 40-45% Coronary artery disease with previous CABG in 2015 History of CVA History of carotid stenosis with previous endarterectomy Peripheral vascular disease Hyperlipidemia Hypertension PLAN: CTA to rule out PE ordered Trend troponins Repeat EKG Continue IV Heparin Start IV Lasix 40mg Nitropaste Continue Aspirin, statin, Brilinta Continue home Lisinopril, metoprolol succinate Obtain 2D echo to assess cardiac structure and function Monitor I/Os, daily weights, renal function Further recommendations pending patient course NPO after midnight, if CTA negative for PE likely cardiac catheterization tomorrow with Dr. Felder pending above findings. Nurse practitioner note has been reviewed by physician. Signing provider agrees with the documented findings, assessment, and plan of care. 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 bilateral renal artery stenting, balloon angioplasty of coronary artery, open heart surgery 02/2015-double bypass Past Anesthesia/Blood Transfusion Reactions: No Reported Reaction Past Psychological History: Anxiety, Depression Smoking Status: Former smoker Past Alcohol Use History: None Reported Past Drug Use History: Marijuana - Past Family History Brother(s) Family Medical History: Myocardial Infarction ([place]) Father Family Medical History: CVA/TIA, Myocardial Infarction ([place]) Additional Family Medical History / Comment(s): ANEURYSM Mother Family Medical History: CVA/TIA, Deep Vein Thrombosis (DVT), Myocardial Infarction ([place]) Sister(s) Family Medical History: Cancer, Myocardial Infarction ([place]) Additional Family Medical History / Comment(s): 3 sisters- [place] Medications and Allergies Home Medications Medication Instructions Recorded Confirmed Type Ferrous Sulfate [Iron] 325 mg PO DAILY 03/17/17 04/04/22 History traZODone HCL [Desyrel] 50 mg PO HS 03/17/17 04/04/22 History Atorvastatin [Lipitor] 40 mg PO HS 05/03/21 04/04/22 History Gabapentin [Neurontin] 400 mg PO TID 05/03/21 04/04/22 History cilostazoL [Pletal] 100 mg PO BID 05/03/21 04/04/22 History Ticagrelor [Brilinta] 90 mg PO BID #60 tab 05/07/21 04/04/22 Rx Tamsulosin [Flomax] 0.4 mg PO BID 07/03/21 04/04/22 History Metoprolol Succinate (ER) [Toprol 25 mg PO DAILY #30 tab 07/06/21 04/04/22 Rx XL] lisinopriL [Zestril] 10 mg PO BID #0 07/06/21 04/04/22 Rx Aspirin 325 mg PO DAILY 10/22/21 04/04/22 History Cholecalciferol [Vitamin D3 (25 25 mcg PO DAILY 10/22/21 04/04/22 History Mcg = 1000 Iu)] amLODIPine [Norvasc] 10 mg PO DAILY 10/22/21 04/04/22 History DULoxetine HCL [Cymbalta] 60 mg PO DAILY 04/04/22 04/04/22 History Allergies Allergy/AdvReac Type Severity Reaction Status Date / Time No Known Allergies Allergy Verified 04/04/22 13:36 Physical Exam Vitals: Vital Signs Temp Pulse Resp BP Pulse Ox 04/04/22 12:42 85 18 172/114 95 04/04/22 12:11 65 16 151/112 98 04/04/22 11:28 98 F 65 16 150/104 98 04/04/22 11:00 98.2 F 88 18 178/102 97 Intake and Output 04/03/22 04/04/22 04/04/22 22:59 06:59 14:59 Other: Weight 79.379 kg Results 04/04/22 11:26 04/04/22 12:06 Cardiac Enzymes 04/04/22 04/04/22 Range/Units 12:06 12:06 AST 27 (17-59) U/L Troponin I 0.078 H* (0.000-0.034) ng/mL Coagulation 04/04/22 Range/Units 11:26 PT 11.9 (9.0-12.0) sec APTT 23.9 (22.0-30.0) sec CBC 04/04/22 Range/Units 11:26 WBC 5.2 (3.8-10.6) k/uL RBC 4.53 (4.30-5.90) m/uL Hgb 13.3 (13.0-17.5) gm/dL Hct 40.6 (39.0-53.0) % Plt Count 201 (150-450) k/uL Comprehensive Metabolic Panel 04/04/22 Range/Units 12:06 Sodium 142 (137-145) mmol/L Potassium 4.0 (3.5-5.1) mmol/L Chloride 115 H (98-107) mmol/L Carbon Dioxide 21 L (22-30) mmol/L BUN 11 (9-20) mg/dL Creatinine 1.23 (0.66-1.25) mg/dL Glucose 128 H (74-99) mg/dL Calcium 8.4 (8.4-10.2) mg/dL AST 27 (17-59) U/L ALT 48 (4-49) U/L Alkaline Phosphatase 93 (38-126) U/L Total Protein 6.4 (6.3-8.2) g/dL Albumin 3.5 (3.5-5.0) g/dL Current Medications Generic Name Dose Route Start Last Admin Trade Name Freq PRN Reason Stop Dose Admin Heparin Sodium (Porcine) 0 unit 04/04/22 13:04 Heparin Sodium 1,000 Un/Ml (10ml Vl) IV PER PROTOCOL PRN Low PTT Protocol Heparin Sodium/Sodium Chloride 250 mls @ 9.525 mls/hr 04/04/22 13:15 25,000 unit/ Sodium Chloride IV .Q24H [facility] Protocol 12 UNITS/KG/HR Nitroglycerin 0.4 mg 04/04/22 13:32 Nitroglycerin Sl Tabs 0.4 Mg Tab SUBLINGUAL Q5M PRN Chest Pain Intake and Output 04/03/22 04/04/22 04/04/22 22:59 06:59 14:59 Other: Weight 79.379 kg Patient Weight 04/05/22 06:59 Weight 79.379 kg 04/04/22 11:26 04/04/22 12:06
[2022-04-04] MEDS ORDERED: METOPROLOL SUCCINATE (ER) 25 MG TAB.ER.24H PO SCH (15:00)
--- NOTE | 2022-04-04 15:06 | CT ---
CT CHEST FOR PULMONARY EMBOLISM. EXAMINATION TYPE: CT angio chest DATE OF EXAM: 04/04/2022 INDICATION: Chest pain, SOB. PE suspected. Hx CABG, heart cath. CT DLP: 356 mGycm, Automated exposure control for dose reduction was used. CONTRAST: Patient injected with 100 mL of Isovue 300. COMPARISON: None TECHNIQUE: CT of the chest is performed on a spiral scan at 2 mm thick sections. Study is performed with intravenous contrast timed for evaluation for pulmonary embolism. This will limit additional po rtions of the evaluation. 3-D MIP images reconstructed by the technologist are reviewed on the compu ter in the coronal and sagittal planes. FINDINGS: No persistent filling defects are evident to suggest an acute pulmonary embolism. No mediastinal or hilar adenopathy enlarged by CT criteria is evident. The ascending aorta diameter at the level of the main pulmonary artery is 2.4 cm. The main pulmonary artery diameter at the bifur cation is 3.1 cm. Mild bilateral pleural effusions are present. No suspicious focal infiltrates or lung masses evident Limited CT section through the upper abdomen are unremarkable. IMPRESSIONS: 1. Small bilateral pleural effusions. 2. No acute pulmonary embolism.
[2022-04-04] MEDS: lisinopriL 10 MG TAB PO SCH (20:27)
[2022-04-04] MEDS: TICAGRELOR 90 MG TAB PO SCH (20:27)
[2022-04-04] MEDS: ATORVASTATIN 40 MG TAB PO SCH (20:27)
[2022-04-04 20:50] LABS: Glucose,Whole Blood 149 mg/dL (70-110)
[2022-04-04] MEDS ORDERED: FUROSEMIDE 10 MG/ML 2 ML VIAL IV SCH (21:00)
[2022-04-05 02:43] LABS: Basophils # (A) 0.1 k/uL (0-0.2); Basophils % (A) 1 %; Eosinophils # (A) 0.2 k/uL (0-0.7); Eosinophils % (A) 3 %; HCT 43.7 % (39.0-53.0); Hypochromasia Slight; Lymphocytes # (A) 1.6 k/uL (1.0-4.8); Lymphocytes % (A) 23 %; MCH 29.4 pg (25.0-35.0); MCHC 32.1 g/dL (31.0-37.0); MCV 91.5 fL (80.0-100.0); Monocytes # (A) 0.4 k/uL (0-1.0); Monocytes % (A) 6 %; Neutrophils # (A) 4.3 k/uL (1.3-7.7); Neutrophils % (A) 65 %; Platelet Count 215 k/uL (150-450); RBC 4.78 m/uL (4.30-5.90); RDW 14.7 % (11.5-15.5); WBC 6.7 k/uL (3.8-10.6)
[2022-04-05 02:53] LABS: INR 1.1 (<1.2); Partial Thromboplastin Time 48.8 sec (22.0-30.0); Prothrombin Time 12.1 sec (9.0-12.0)
[2022-04-05 02:59] LABS: Albumin 3.9 g/dL (3.5-5.0); Calcium 8.9 mg/dL (8.4-10.2); Potassium 3.5 mmol/L (3.5-5.1); Total Protein 6.9 g/dL (6.3-8.2)
[2022-04-05 03:08] LABS: Total Bilirubin 0.7 mg/dL (0.2-1.3)
[2022-04-05] MEDS: NITROGLYCERIN SL TABS 0.4 MG TAB SUBLINGUAL PRN ×2 (04:24→04:30)
[2022-04-05 06:07] LABS: Glucose,Whole Blood 152 mg/dL (70-110)
[2022-04-05] MEDS ORDERED: SODIUM CHLORIDE 0.9% 1,000 ML IV STA (06:29)
[2022-04-05] MEDS ORDERED: Potassium Replacement Protocol 1 EACH MISC MISCELLANE PRN (08:42)
--- NOTE | 2022-04-05 08:50 | P.HPIM ---
History of Present Illness H&P Date: 04/05/22 Chief Complaint: Elevated troponin The patient is a 58-year-old black male essentially admitted for anginal type symptoms with elevated troponin. Cardiology has been consulted and we are awaiting cardiac catheterization. The patient ended up having computed tomography scan with contrast and his kidney function did slightly become stressed. He now feels much better after treatment. Imdur has been started. Appreciate cardiology input. Underlying history of hypertension he has an underlying history of PAD with renal artery stenosis and CVA. Diabetes is fairly well-controlled otherwise. Review of Systems Constitutional: Denies chills, Denies fever Eyes: denies blurred vision, denies pain Ears, nose, mouth and throat: Denies headache, Denies sore throat Cardiovascular: Reports as per HPI Respiratory: Denies cough Gastrointestinal: Denies abdominal pain, Denies diarrhea, Denies nausea, Denies vomiting Musculoskeletal: Denies myalgias Past Medical History Past Medical History: Coronary Artery Disease (CAD), Chest Pain / Angina, COPD, CVA/TIA, Diabetes Mellitus, Hyperlipidemia, Hypertension, Memory Impairment, Myocardial Infarction ([place]), Prostate Disorder, Sleep Apnea/CPAP/BIPAP, Vascular Disorder Additional Past Medical History / Comment(s): Peripheral vascular disease, renal artery stenosis with previous renal artery stenting, insomnia,NEUROPATHY, stroke 05/03/21-left side weakness, migraines, not using CPAP currently, diet control diabetic, 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 bilateral renal artery stenting, balloon angioplasty of coronary artery, open heart surgery 02/2015-double bypass Past Anesthesia/Blood Transfusion Reactions: No Reported Reaction Past Psychological History: Anxiety, Depression Smoking Status: Former smoker Past Alcohol Use History: None Reported Past Drug Use History: Marijuana - Past Family History Brother(s) Family Medical History: Myocardial Infarction ([place]) Father Family Medical History: CVA/TIA, Myocardial Infarction ([place]) Additional Family Medical History / Comment(s): ANEURYSM Mother Family Medical History: CVA/TIA, Deep Vein Thrombosis (DVT), Myocardial Infarction ([place]) Sister(s) Family Medical History: Cancer, Myocardial Infarction ([place]) Additional Family Medical History / Comment(s): 3 sisters- [place] Medications and Allergies Home Medications Medication Instructions Recorded Confirmed Type RX: Ferrous Sulfate [Iron] 325 mg PO DAILY 03/17/17 04/04/22 History RX: traZODone HCL [Desyrel] 50 mg PO HS 03/17/17 04/04/22 History RX: Atorvastatin [Lipitor] 40 mg PO HS 05/03/21 04/04/22 History RX: Gabapentin [Neurontin] 400 mg PO TID 05/03/21 04/04/22 History RX: cilostazoL [Pletal] 100 mg PO BID 05/03/21 04/04/22 History RX: Ticagrelor [Brilinta] 90 mg PO BID #60 tab 05/07/21 04/04/22 Rx RX: Tamsulosin [Flomax] 0.4 mg PO BID 07/03/21 04/04/22 History RX: Metoprolol Succinate (ER) 25 mg PO DAILY #30 tab 07/06/21 04/04/22 Rx [Toprol XL] RX: lisinopriL [Zestril] 10 mg PO BID #0 07/06/21 04/04/22 Rx RX: Aspirin 325 mg PO DAILY 10/22/21 04/04/22 History RX: Cholecalciferol [Vitamin D3 25 mcg PO DAILY 10/22/21 04/04/22 History (25 Mcg = 1000 Iu)] RX: amLODIPine [Norvasc] 10 mg PO DAILY 10/22/21 04/04/22 History DULoxetine HCL [Cymbalta] 60 mg PO DAILY 04/04/22 04/04/22 History Allergies Allergy/AdvReac Type Severity Reaction Status Date / Time No Known Allergies Allergy Verified 04/04/22 13:36 Physical Exam Vitals: Vital Signs Temp Pulse Pulse Resp BP BP Pulse Ox 04/05/22 07:14 98.0 F 92 22 138/82 100 04/05/22 04:35 154/88 04/05/22 04:30 143/102 04/05/22 04:25 160/68 04/05/22 03:49 98.2 F 92 18 177/103 99 04/05/22 00:00 97.6 F 90 19 141/93 100 04/04/22 20:00 98.6 F 90 19 134/83 100 04/04/22 16:28 97 F L 98 16 150/98 98 04/04/22 16:00 107 H 16 166/99 97 04/04/22 15:34 100 16 143/92 96 04/04/22 14:43 96 F L 75 16 152/98 97 04/04/22 12:42 85 18 172/114 95 04/04/22 12:11 65 16 151/112 98 04/04/22 11:28 98 F 65 16 150/104 98 04/04/22 11:00 98.2 F 88 18 178/102 97 Intake and Output 04/04/22 04/05/22 04/05/22 22:59 06:59 14:59 Intake Total 63.818 Output Total 3900 2204 Balance -3836.182 -2204 Intake: Intake, IV Titration 63.818 Amount Heparin Sod,Pork in 0.45% 63.818 NaCl 25,000 unit In 0.45 % NaCl 1 250ml.bag @ 12 UNITS/KG/HR 9.525 mls/hr IV .Q24H [facility] Rx#: [id number] Output: Urine 3900 2200 Stool 4 Other: Voiding Method Urinal Urinal Weight 79.379 kg 71 kg - Constitutional General appearance: no acute distress - Neck Neck: no lymphadenopathy - Cardiovascular Rhythm: regular Heart sounds: normal: S1, S2 Abnormal Heart Sounds: no S3 Gallop - Gastrointestinal General gastrointestinal: soft, no tenderness - Neurologic Neurologic: CNII-XII intact Results CBC & Chem 7: 04/05/22 02:27 04/05/22 02:27 Labs: Abnormal Lab Results - Last 24 Hours (Table) 04/04/22 04/04/22 04/04/22 Range/Units 11:26 12:06 12:06 PT (9.0-12.0) sec APTT (22.0-30.0) sec D-Dimer 1.52 H (<0.60) mg/L FEU Chloride 115 H (98-107) mmol/L Carbon Dioxide 21 L (22-30) mmol/L Creatinine (0.66-1.25) mg/dL Glucose 128 H (74-99) mg/dL POC Glucose (mg/dL) (70-110) mg/dL ALT (4-49) U/L Troponin I 0.078 H* (0.000-0.034) ng/mL 04/04/22 04/04/22 04/04/22 Range/Units 16:03 19:40 19:40 PT (9.0-12.0) sec APTT 39.1 H (22.0-30.0) sec D-Dimer (<0.60) mg/L FEU Chloride (98-107) mmol/L Carbon Dioxide (22-30) mmol/L Creatinine (0.66-1.25) mg/dL Glucose (74-99) mg/dL POC Glucose (mg/dL) (70-110) mg/dL ALT (4-49) U/L Troponin I 0.096 H* 0.138 H* (0.000-0.034) ng/mL 04/04/22 04/04/22 04/05/22 Range/Units 20:37 22:40 02:27 PT (9.0-12.0) sec APTT (22.0-30.0) sec D-Dimer (<0.60) mg/L FEU Chloride 110 H (98-107) mmol/L Carbon Dioxide 21 L (22-30) mmol/L Creatinine 1.36 H (0.66-1.25) mg/dL Glucose 168 H (74-99) mg/dL POC Glucose (mg/dL) 149 H (70-110) mg/dL ALT 51 H (4-49) U/L Troponin I 0.141 H* (0.000-0.034) ng/mL 04/05/22 04/05/22 Range/Units 02:27 06:05 PT 12.1 H (9.0-12.0) sec APTT 48.8 H (22.0-30.0) sec D-Dimer (<0.60) mg/L FEU Chloride (98-107) mmol/L Carbon Dioxide (22-30) mmol/L Creatinine (0.66-1.25) mg/dL Glucose (74-99) mg/dL POC Glucose (mg/dL) 152 H (70-110) mg/dL ALT (4-49) U/L Troponin I (0.000-0.034) ng/mL Thrombosis Risk Factor Assmnt - Choose All That Apply Each Risk Factor Represents 2 Points: Age 61-74 years Thrombosis Risk Factor Assessment Total Risk Factor Score: 2 Thrombosis Risk Factor Assessment Level: Low Risk Assessment and Plan (1) Congestive heart failure Current Visit: Yes Status: Acute Code(s): I50.9 - HEART FAILURE, UNSPECIFIED SNOMED Code(s): 12890305 (2) Elevated troponin Current Visit: Yes Status: Acute Code(s): R77.8 - OTHER SPECIFIED ABNORMALITIES OF PLASMA PROTEINS SNOMED Code(s): 219624700 (3) Abnormal EKG Current Visit: No Status: Acute Code(s): R94.31 - ABNORMAL ELECTROCARDIOGRAM [ECG] [EKG] SNOMED Code(s): 013168502 (4) Chest pain Current Visit: No Status: Acute Code(s): R07.9 - CHEST PAIN, UNSPECIFIED SNOMED Code(s): 04744409 (5) Diabetes Current Visit: No Status: Acute Code(s): E11.9 - TYPE 2 DIABETES MELLITUS WITHOUT COMPLICATIONS SNOMED Code(s): 78581168 (6) HTN (hypertension) Current Visit: No Status: Acute Code(s): I10 - ESSENTIAL (PRIMARY) HYPERTENSION SNOMED Code(s): 74751548 (7) Hyperlipemia Current Visit: No Status: Acute Code(s): E78.5 - HYPERLIPIDEMIA, UNSPECIFIED SNOMED Code(s): 11467493 Plan: Stabilize kidney function. Reconcile home medications. Check CBC and CMP in a.m. See orders otherwise. The patient is otherwise full code per
[2022-04-05] MEDS ORDERED: METOPROLOL SUCCINATE (ER) 25 MG TAB.ER.24H PO SCH (09:00)
[2022-04-05] MEDS ORDERED: cilostazoL 100 MG TAB PO SCH (09:00)
[2022-04-05] MEDS ORDERED: ASPIRIN 81 MG PO SCH (09:00)
[2022-04-05] MEDS: lisinopriL 10 MG TAB PO SCH ×2 (09:03→19:51)
[2022-04-05] MEDS: TAMSULOSIN 0.4 MG CAP.ER.24H PO SCH ×2 (09:06→19:55)
[2022-04-05] MEDS: ISOSORBIDE MONONITRATE ER 60 MG TAB.ER.24H PO SCH (09:06)
[2022-04-05] MEDS: POTASSIUM CHLORIDE ER 20 MEQ TAB.ER PO SCH ×2 (09:06→11:16)
[2022-04-05] MEDS: hydrALAZINE HCL 50 MG TAB PO SCH ×3 (09:06→19:54)
[2022-04-05] MEDS: DULoxetine HCL 60 MG CAPSULE.DR PO SCH (09:06)
[2022-04-05] MEDS: amLODIPine 10 MG TAB PO SCH (09:06)
[2022-04-05] MEDS: ASPIRIN 325 MG TAB PO SCH (09:06)
[2022-04-05] MEDS: CHOLECALCIFEROL 25 MCG (1000 IU) TABLET PO SCH (09:06)
[2022-04-05] MEDS: METOPROLOL SUCCINATE (ER) 50 MG TAB.ER.24H PO SCH (09:06)
[2022-04-05] MEDS: TICAGRELOR 90 MG TAB PO SCH ×2 (09:06→19:54)
[2022-04-05] MEDS: GABAPENTIN 400 MG CAP PO SCH ×3 (09:06→19:55)
[2022-04-05] MEDS: FERROUS SULFATE 325 MG TAB PO SCH (09:06)
--- NOTE | 2022-04-05 10:56 | P.PN ---
Subjective This is a 66 year old male with a past medical history significant for CVA, carotid stenosis with previous endarterectomy, peripheral vascular disease, ischemic cardiomyopathy, coronary artery disease with previous CABG 02/2015, previous stenting in 1983 and , hyperlipidemia, and hypertension. Patient follows in the office with Dr. Felder. We have been asked to see the patient in consultation for elevated troponin. Patient presents to the ER with chest pain and shortness of breath and cough. Patient states he has been having intermittent chest pain for 3 weeks, has progressively worsened. His pain is located mid-sternal radiating up to his bilateral jaw and back. He went for a walk today and did have exertional chest pain and shortness of breath. He had associated nausea. He also endorses worsening shortness of breath with activity and at rest, with symptoms of orthopnea. Denies emesis, syncope or near syncope, or diaphoresis. Denies any fever, chills. No specific alleviating factors. His chest pain has improved since admission. He was started on IV heparin drip. D- dimer also elevated at 1.52. 04/05/2022 Patient underwent CTA which revealed no pulmonary embolism. Overnight he continued to have chest pain with relief with nitro. At bedside, his chest pain has resolved. He denies any shortness of breath currently. EKG this morning with recurrent PVCs, with anterior ST-T changes similar to prior EKG. Troponins have now peaked at 0.14. He is currently maintained on IV heparin, aspirin 325 mg daily, amlodipine 10 mg daily, atorvastatin 40 mg nightly, Lisinopril 10mg BID, PRN Nitro, Brilinta 90 mg twice a day Labs, sodium 140, potassium 3.5, BUN 14, serum creatinine 1.36 PHYSICAL EXAM: VITAL SIGNS: Reviewed. GENERAL: Well-developed in no acute distress. HEENT: Head is normocephalic. Neck supple. No JVD LUNGS: Respirations even and unlabored. Lungs diminished to auscultation bilaterally. HEART: Regular rate and rhythm. S1 and S2 heard. Systolic murmur noted. ABDOMEN: Soft. Nondistended. Nontender. EXTREMITIES: Normal range of motion. No clubbing or cyanosis. Peripheral pulses intact. Trace lower extremity edema NEUROLOGIC: Awake and alert. Oriented x 3. ASSESSMENT: Chest pain with elevated troponin, concern for NSTEMI Shortness of breath Elevated D-dimer rule out PE Acute on chronic heart failure with mildly reduced ejection fraction, 40-45% Coronary artery disease with previous CABG in 2015 History of CVA History of carotid stenosis with previous endarterectomy Peripheral vascular disease Hyperlipidemia Hypertension PLAN: Cardiac catheterization discussed with patient's primary stock manager, Dr. Felder, at this time secondary to elevated creatinine, cardiac cath on hold. Will continue to monitor patient. Per Dr. Felder keep patient NPO for possible cardiac cath on Friday. Continue IV Heparin Hydralazine 50mg TID, Imdur 60mg daily started Continue amlodipine, Aspirin, statin, Brilinta Continue home Lisinopril, metoprolol succinate Obtain 2D echo to assess cardiac structure and function Monitor I/Os, daily weights, renal function Further recommendations pending patient course Nurse practitioner note has been reviewed by physician. Signing provider agrees with the documented findings, assessment, and plan of care. Objective - Vital Signs Vital signs: Vital Signs Temp 98.0 F 04/05/22 07:14 Pulse 92 04/05/22 07:14 Resp 22 04/05/22 07:14 BP 138/82 04/05/22 07:14 Pulse Ox 100 04/05/22 07:14 FiO2 Intake & Output 04/04/22 04/05/22 04/05/22 18:59 06:59 18:59 Intake Total 63.818 Output Total 2500 3604 Balance -2500 -3540.182 Weight 79.379 kg 71 kg Intake: Intake, IV Titration 63.818 Amount Heparin Sod,Pork in 0.45% 63.818 NaCl 25,000 unit In 0.45 % NaCl 1 250ml.bag @ 12 UNITS/KG/HR 9.525 mls/hr IV .Q24H [facility] Rx#: [id number] Output: Urine 2500 3600 Stool 4 Other: Voiding Method Urinal - Labs CBC & Chem 7: 04/05/22 02:27 04/05/22 02:27 Labs: Abnormal Lab Results - Last 24 Hours (Table) 04/04/22 04/04/22 04/04/22 Range/Units 11:26 12:06 12:06 PT (9.0-12.0) sec APTT (22.0-30.0) sec D-Dimer 1.52 H (<0.60) mg/L FEU Chloride 115 H (98-107) mmol/L Carbon Dioxide 21 L (22-30) mmol/L Creatinine (0.66-1.25) mg/dL Glucose 128 H (74-99) mg/dL POC Glucose (mg/dL) (70-110) mg/dL ALT (4-49) U/L Troponin I 0.078 H* (0.000-0.034) ng/mL 04/04/22 04/04/22 04/04/22 Range/Units 16:03 19:40 19:40 PT (9.0-12.0) sec APTT 39.1 H (22.0-30.0) sec D-Dimer (<0.60) mg/L FEU Chloride (98-107) mmol/L Carbon Dioxide (22-30) mmol/L Creatinine (0.66-1.25) mg/dL Glucose (74-99) mg/dL POC Glucose (mg/dL) (70-110) mg/dL ALT (4-49) U/L Troponin I 0.096 H* 0.138 H* (0.000-0.034) ng/mL 04/04/22 04/04/22 04/05/22 Range/Units 20:37 22:40 02:27 PT (9.0-12.0) sec APTT (22.0-30.0) sec D-Dimer (<0.60) mg/L FEU Chloride 110 H (98-107) mmol/L Carbon Dioxide 21 L (22-30) mmol/L Creatinine 1.36 H (0.66-1.25) mg/dL Glucose 168 H (74-99) mg/dL POC Glucose (mg/dL) 149 H (70-110) mg/dL ALT 51 H (4-49) U/L Troponin I 0.141 H* (0.000-0.034) ng/mL 04/05/22 04/05/22 Range/Units 02:27 06:05 PT 12.1 H (9.0-12.0) sec APTT 48.8 H (22.0-30.0) sec D-Dimer (<0.60) mg/L FEU Chloride (98-107) mmol/L Carbon Dioxide (22-30) mmol/L Creatinine (0.66-1.25) mg/dL Glucose (74-99) mg/dL POC Glucose (mg/dL) 152 H (70-110) mg/dL ALT (4-49) U/L Troponin I (0.000-0.034) ng/mL
[2022-04-05 11:55] LABS: Glucose,Whole Blood 151 mg/dL (70-110)
[2022-04-05] MEDS: HEPARIN SOD,PORK IN 0.45% NACL 25,000 UNIT in 0.45% NACL 1 250ML.BAG IV SCH (14:31)
[2022-04-05 16:44] LABS: Glucose,Whole Blood 140 mg/dL (70-110)
[2022-04-05] MEDS: ATORVASTATIN 40 MG TAB PO SCH (19:55)
[2022-04-05] MEDS: traZODone HCL 50 MG TAB PO SCH (19:55)
[2022-04-05 20:15] LABS: Glucose,Whole Blood 128 mg/dL (70-110)
[2022-04-06 03:31] LABS: Basophils # (A) 0.1 k/uL (0-0.2); Basophils % (A) 1 %; Eosinophils # (A) 0.2 k/uL (0-0.7); Eosinophils % (A) 5 %; HCT 38.7 % (39.0-53.0); HGB 12.8 gm/dL (13.0-17.5); Lymphocytes # (A) 1.4 k/uL (1.0-4.8); Lymphocytes % (A) 31 %; MCH 29.6 pg (25.0-35.0); MCV 89.9 fL (80.0-100.0); Mean Platelet Volume 9.1; Monocytes # (A) 0.3 k/uL (0-1.0); Monocytes % (A) 7 %; Neutrophils # (A) 2.5 k/uL (1.3-7.7); Neutrophils % (A) 54 %; Platelet Count 192 k/uL (150-450); RBC 4.31 m/uL (4.30-5.90); RDW 14.8 % (11.5-15.5); WBC 4.6 k/uL (3.8-10.6)
[2022-04-06 04:01] LABS: Calcium 8.2 mg/dL (8.4-10.2)
[2022-04-06 04:04] LABS: Potassium 3.8 mmol/L (3.5-5.1)
[2022-04-06 06:18] LABS: Glucose,Whole Blood 136 mg/dL (70-110)
[2022-04-06] MEDS ORDERED: FUROSEMIDE 10 MG/ML 4 ML VIAL IV STA (07:54)
[2022-04-06] MEDS ORDERED: ACETAMINOPHEN TAB 325 MG TAB PO PRN (08:15)
[2022-04-06] MEDS: ISOSORBIDE MONONITRATE ER 60 MG TAB.ER.24H PO SCH (09:03)
[2022-04-06] MEDS: CHOLECALCIFEROL 25 MCG (1000 IU) TABLET PO SCH (09:03)
[2022-04-06] MEDS: hydrALAZINE HCL 50 MG TAB PO SCH ×3 (09:03→23:37)
[2022-04-06] MEDS: DOCUSATE 100 MG CAP PO PRN (09:03)
[2022-04-06] MEDS: TICAGRELOR 90 MG TAB PO SCH ×2 (09:03→20:10)
[2022-04-06] MEDS: DULoxetine HCL 60 MG CAPSULE.DR PO SCH (09:04)
[2022-04-06] MEDS: TAMSULOSIN 0.4 MG CAP.ER.24H PO SCH ×2 (09:04→20:09)
[2022-04-06] MEDS: GABAPENTIN 400 MG CAP PO SCH ×3 (09:04→20:09)
[2022-04-06] MEDS: FERROUS SULFATE 325 MG TAB PO SCH (09:04)
[2022-04-06] MEDS: ASPIRIN 325 MG TAB PO SCH (09:04)
[2022-04-06] MEDS: METOPROLOL SUCCINATE (ER) 50 MG TAB.ER.24H PO SCH (09:04)
[2022-04-06] MEDS: lisinopriL 10 MG TAB PO SCH ×2 (09:04→21:44)
[2022-04-06] MEDS: amLODIPine 10 MG TAB PO SCH (09:04)
--- NOTE | 2022-04-06 11:02 | P.PN ---
Subjective From the records. The patient is a 58-year-old black male essentially admitted for anginal type symptoms with elevated troponin. Cardiology has been consulted and we are awaiting cardiac catheterization. The patient ended up having computed tomog maira scan with contrast and his kidney function did slightly become stressed. He now feels much better after treatment. Imdur has been started. Appreciate cardiology input. Underlying history of hypertension he has an underlying history of PAD with renal artery stenosis and CVA. Diabetes is fairly well-controlled otherwise. 04/06/2022. This is a pleasant 66 years old male who presents with chest pain and found to have elevated troponin suspicious for non-STEMI. Patient has been treated with heparin drip with a plan for him to undergo cardiac cath with manager action team, possible on Friday. Currently he is on aspirin and brillinta . On the top of his heparin drip. He is hemodynamically stable. Labs are stable. He rates his chest pain as 2/10 today. No dyspnea. But he is complaining of from constipation. Echocardiogram is pending Objective - Vital Signs Vital signs: Vital Signs Temp 97.9 F 04/06/22 03:14 Pulse 87 04/06/22 03:14 Resp 16 04/06/22 03:14 BP 124/56 04/06/22 03:14 Pulse Ox 100 04/06/22 03:14 FiO2 Intake & Output 04/05/22 04/06/22 04/06/22 18:59 06:59 18:59 Intake Total 846.182 Output Total 650 740 Balance 196.182 -740 Weight 72.7 kg Intake: Intake, IV Titration 186.182 Amount Heparin Sod,Pork in 0.45% 186.182 NaCl 25,000 unit In 0.45 % NaCl 1 250ml.bag @ 12 UNITS/KG/HR 9.525 mls/hr IV .Q24H [facility] Rx#: [id number] Oral 660 Output: Urine 650 740 Other: Voiding Method Urinal Urinal - Exam GENERAL: The patient is alert and oriented x3, not in any acute distress. Well developed, well nourished. HEENT: Pupils are round and equally reacting to light. EOMI. No scleral icterus. No conjunctival pallor. Normocephalic, atraumatic. No pharyngeal erythema. No thyromegaly. CARDIOVASCULAR: S1 and S2 present. No murmurs, rubs, or gallops. PULMONARY: Chest is clear to auscultation, no wheezing or crackles. ABDOMEN: Soft, nontender, nondistended, normoactive bowel sounds. No palpable organomegaly. MUSCULOSKELETAL: No joint swelling or deformity. EXTREMITIES: No cyanosis, clubbing, or pedal edema. NEUROLOGICAL: Gross neurological examination did not reveal any focal deficits. SKIN: No rashes. no petechiae. - Labs CBC & Chem 7: 04/06/22 02:52 04/06/22 02:52 Labs: Abnormal Lab Results - Last 24 Hours (Table) 04/05/22 04/05/22 04/05/22 Range/Units 11:53 16:38 20:14 Hgb (13.0-17.5) gm/dL Hct (39.0-53.0) % APTT (22.0-30.0) sec Chloride (98-107) mmol/L Carbon Dioxide (22-30) mmol/L Glucose (74-99) mg/dL POC Glucose (mg/dL) 151 H 140 H 128 H (70-110) mg/dL Calcium (8.4-10.2) mg/dL 04/06/22 04/06/22 04/06/22 Range/Units 02:52 02:52 02:52 Hgb 12.8 L (13.0-17.5) gm/dL Hct 38.7 L (39.0-53.0) % APTT 47.0 H (22.0-30.0) sec Chloride 114 H (98-107) mmol/L Carbon Dioxide 20 L (22-30) mmol/L Glucose 120 H (74-99) mg/dL POC Glucose (mg/dL) (70-110) mg/dL Calcium 8.2 L (8.4-10.2) mg/dL 04/06/22 Range/Units 06:16 Hgb (13.0-17.5) gm/dL Hct (39.0-53.0) % APTT (22.0-30.0) sec Chloride (98-107) mmol/L Carbon Dioxide (22-30) mmol/L Glucose (74-99) mg/dL POC Glucose (mg/dL) 136 H (70-110) mg/dL Calcium (8.4-10.2) mg/dL Assessment and Plan Assessment: None STEMI with chest pain and elevated troponin Acute on chronic systolic CHF with ejection fraction 40-45% Acute kidney injury, slightly cardiorenal syndrome. The result. History of coronary artery disease status post CABG in 2014 Hypertension Elevated d-dimer with negative CTA for pulmonary embolism Plan: This is a pleasant 66 years old male who presents with non-STEMI Continue with heparin drip as well as aspirin and brillinta Cardiac cath per cardiology team. Labs and medication were reviewed.. Continue same treatment. Continue with symptomatic treatment. Resume home medication. Monitor lytes and vitals. DVT and GI prophylaxis. Further recommendations as per clinical course of the patient DVT prophylaxis: heparin GI Prophylaxis: Pepcid Prognosis is guarded
[2022-04-06 11:43] LABS: Glucose,Whole Blood 123 mg/dL (70-110)
[2022-04-06] MEDS: HEPARIN SOD,PORK IN 0.45% NACL 25,000 UNIT in 0.45% NACL 1 250ML.BAG IV SCH (12:15)
--- NOTE | 2022-04-06 13:08 | P.PN ---
Subjective This is a 66 year old male with a past medical history significant for CVA, carotid stenosis with previous endarterectomy, peripheral vascular disease, ischemic cardiomyopathy, coronary artery disease with previous CABG 02/2015, previous stenting in 1983 and , hyperlipidemia, and hypertension. Patient follows in the office with Dr. Felder. We have been asked to see the patient in consultation for elevated troponin. Patient presents to the ER with chest pain and shortness of breath and cough. Patient states he has been having intermittent chest pain for 3 weeks, has progressively worsened. His pain is located mid-sternal radiating up to his bilateral jaw and back. He went for a walk today and did have exertional chest pain and shortness of breath. He had associated nausea. He also endorses worsening shortness of breath with activity and at rest, with symptoms of orthopnea. Denies emesis, syncope or near syncope, or diaphoresis. Denies any fever, chills. No specific alleviating factors. His chest pain has improved since admission. He was started on IV heparin drip. D- dimer also elevated at 1.52. 04/05/2022 Patient underwent CTA which revealed no pulmonary embolism. Overnight he continued to have chest pain with relief with nitro. At bedside, his chest pain has resolved. He denies any shortness of breath currently. EKG this morning with recurrent PVCs, with anterior ST-T changes similar to prior EKG. Troponins have now peaked at 0.14. He is currently maintained on IV heparin, aspirin 325 mg daily, amlodipine 10 mg daily, atorvastatin 40 mg nightly, Lisinopril 10mg BID, PRN Nitro, Brilinta 90 m g twice a day Labs, sodium 140, potassium 3.5, BUN 14, serum creatinine 1.36 04/06 Patient seen and examined. Short run of nonsustained VT. Has been tolerating medications. Continued chest pressure however improved. Continued dyspnea with minimal exertion. He does admit to orthopnea and was placed on IV Lasix. PHYSICAL EXAM: VITAL SIGNS: Reviewed. GENERAL: Well-developed in no acute distress. HEENT: Head is normocephalic. Neck supple. No JVD LUNGS: Respirations even and unlabored. Lungs diminished to auscultation bilaterally. HEART: Regular rate and rhythm. S1 and S2 heard. Systolic murmur noted. ABDOMEN: Soft. Nondistended. Nontender. EXTREMITIES: Normal range of motion. No clubbing or cyanosis. Peripheral pulses intact. Trace lower extremity edema NEUROLOGIC: Awake and alert. Oriented x 3. ASSESSMENT: Chest pain with elevated troponin, concern for NSTEMI Shortness of breath Elevated D-dimer rule out PE Acute on chronic heart failure with mildly reduced ejection fraction, 40-45% Coronary artery disease with previous CABG in 2015 History of CVA History of carotid stenosis with previous endarterectomy Peripheral vascular disease Hyperlipidemia Hypertension PLAN: Continue with IV heparin as well as antianginals as tolerated. Currently pain appears controlled. Plan for heart catheterization likely Friday unless patient has worsening symptoms. Still been having some orthopnea and mild crackles on exam and continue with IV diuretics. Check 2-D echo. Further recommendations to follow. Objective - Vital Signs Vital signs: Vital Signs Temp 98.1 F 04/06/22 11:52 Pulse 82 04/06/22 11:52 Resp 16 04/06/22 11:52 BP 122/76 04/06/22 11:52 Pulse Ox 100 04/06/22 11:52 FiO2 Intake & Output 04/05/22 04/06/22 04/06/22 18:59 06:59 18:59 Intake Total 846.182 421.523 Output Total 650 740 300 Balance 196.182 -740 121.523 Weight 72.7 kg Intake: Intake, IV Titration 186.182 241.523 Amount Heparin Sod,Pork in 0.45% 186.182 241.523 NaCl 25,000 unit In 0.45 % NaCl 1 250ml.bag @ 12 UNITS/KG/HR 9.525 mls/hr IV .Q24H [facility] Rx#: [id number] Oral 660 180 Output: Urine 650 740 300 Other: Voiding Method Urinal Urinal Urinal - Labs CBC & Chem 7: 04/06/22 02:52 04/06/22 02:52 Labs: Abnormal Lab Results - Last 24 Hours (Table) 04/05/22 04/05/22 04/06/22 Range/Units 16:38 20:14 02:52 Hgb (13.0-17.5) gm/dL Hct (39.0-53.0) % APTT 47.0 H (22.0-30.0) sec Chloride (98-107) mmol/L Carbon Dioxide (22-30) mmol/L Glucose (74-99) mg/dL POC Glucose (mg/dL) 140 H 128 H (70-110) mg/dL Calcium (8.4-10.2) mg/dL 04/06/22 04/06/22 04/06/22 Range/Units 02:52 02:52 06:16 Hgb 12.8 L (13.0-17.5) gm/dL Hct 38.7 L (39.0-53.0) % APTT (22.0-30.0) sec Chloride 114 H (98-107) mmol/L Carbon Dioxide 20 L (22-30) mmol/L Glucose 120 H (74-99) mg/dL POC Glucose (mg/dL) 136 H (70-110) mg/dL Calcium 8.2 L (8.4-10.2) mg/dL 04/06/22 Range/Units 11:41 Hgb (13.0-17.5) gm/dL Hct (39.0-53.0) % APTT (22.0-30.0) sec Chloride (98-107) mmol/L Carbon Dioxide (22-30) mmol/L Glucose (74-99) mg/dL POC Glucose (mg/dL) 123 H (70-110) mg/dL Calcium (8.4-10.2) mg/dL
[2022-04-06 16:38] LABS: Glucose,Whole Blood 134 mg/dL (70-110)
[2022-04-06 20:08] LABS: Glucose,Whole Blood 124 mg/dL (70-110)
[2022-04-06] MEDS: ATORVASTATIN 40 MG TAB PO SCH (20:09)
[2022-04-06] MEDS: traZODone HCL 50 MG TAB PO SCH (20:09)
[2022-04-06] MEDS ORDERED: FAMOTIDINE 20 MG/2 ML VIAL IV SCH (21:00)
[2022-04-06] MEDS: FAMOTIDINE 20 MG TAB PO SCH (21:44)
[2022-04-07 06:06] LABS: Glucose,Whole Blood 140 mg/dL (70-110)
[2022-04-07 07:39] LABS: Basophils % (A) 1 %; Eosinophils # (A) 0.2 k/uL (0-0.7); Eosinophils % (A) 5 %; HCT 42.5 % (39.0-53.0); HGB 13.9 gm/dL (13.0-17.5); Lymphocytes # (A) 1.2 k/uL (1.0-4.8); Lymphocytes % (A) 25 %; MCH 29.4 pg (25.0-35.0); MCHC 32.6 g/dL (31.0-37.0); Mean Platelet Volume 9.2; Monocytes # (A) 0.3 k/uL (0-1.0); Monocytes % (A) 7 %; Neutrophils # (A) 2.7 k/uL (1.3-7.7); Neutrophils % (A) 60 %; Platelet Count 204 k/uL (150-450); RBC 4.72 m/uL (4.30-5.90); RDW 14.5 % (11.5-15.5); WBC 4.5 k/uL (3.8-10.6)
[2022-04-07 07:54] LABS: Calcium 8.6 mg/dL (8.4-10.2); Magnesium 1.7 mg/dL (1.6-2.3); Potassium 3.7 mmol/L (3.5-5.1)
[2022-04-07] MEDS ORDERED: Magnesium Replacement Protocol 1 EACH MISC MISCELLANE PRN (08:24)
[2022-04-07] MEDS ORDERED: Potassium Replacement Protocol 1 EACH MISC MISCELLANE PRN (08:24)
[2022-04-07] MEDS: MAGNESIUM SULFATE-D5W PMX 1 GM in DEXTROSE/WATER 1 100ML.BAG IVPB SCH ×2 (08:39→11:34)
[2022-04-07] MEDS: CHOLECALCIFEROL 25 MCG (1000 IU) TABLET PO SCH (08:40)
[2022-04-07] MEDS: DULoxetine HCL 60 MG CAPSULE.DR PO SCH (08:40)
[2022-04-07] MEDS: amLODIPine 10 MG TAB PO SCH (08:40)
[2022-04-07] MEDS: FERROUS SULFATE 325 MG TAB PO SCH (08:40)
[2022-04-07] MEDS: GABAPENTIN 400 MG CAP PO SCH ×3 (08:40→20:58)
[2022-04-07] MEDS: FUROSEMIDE 20 MG TAB PO SCH (08:40)
[2022-04-07] MEDS: TAMSULOSIN 0.4 MG CAP.ER.24H PO SCH ×2 (08:40→20:58)
[2022-04-07] MEDS: TICAGRELOR 90 MG TAB PO SCH ×2 (08:40→20:57)
[2022-04-07] MEDS: FAMOTIDINE 20 MG TAB PO SCH ×2 (08:40→20:58)
[2022-04-07] MEDS: METOPROLOL SUCCINATE (ER) 50 MG TAB.ER.24H PO SCH (08:40)
[2022-04-07] MEDS: ISOSORBIDE MONONITRATE ER 60 MG TAB.ER.24H PO SCH (08:41)
[2022-04-07] MEDS: ASPIRIN 325 MG TAB PO SCH (08:41)
[2022-04-07] MEDS: DOCUSATE 100 MG CAP PO PRN (08:41)
[2022-04-07] MEDS ORDERED: POTASSIUM CHLORIDE ER 20 MEQ TAB.ER PO ONE (09:00)
[2022-04-07] MEDS: lisinopriL 10 MG TAB PO SCH ×2 (10:30→20:58)
[2022-04-07] MEDS: hydrALAZINE HCL 50 MG TAB PO SCH ×3 (10:31→23:07)
[2022-04-07 11:55] LABS: Glucose,Whole Blood 122 mg/dL (70-110)
[2022-04-07] MEDS ORDERED: NITROGLYCERIN SL TABS 0.4 MG TAB SUBLINGUAL PRN (13:36)
[2022-04-07] MEDS ORDERED: ALPRAZolam 0.25 MG TAB PO PRN (13:36)
[2022-04-07] MEDS ORDERED: ALPRAZolam 0.5 MG TAB PO PRN (13:36)
--- NOTE | 2022-04-07 13:37 | P.PN ---
Subjective This is a 66 year old male with a past medical history significant for CVA, carotid stenosis with previous endarterectomy, peripheral vascular disease, ischemic cardiomyopathy, coronary artery disease with previous CABG 02/2015, previous stenting in 1983 and , hyperlipidemia, and hypertension. Patient follows in the office with Dr. Felder. We have been asked to see the patient in consultation for elevated troponin. Patient presents to the ER with chest pain and shortness of breath and cough. Patient states he has been having intermittent chest pain for 3 weeks, has progressively worsened. His pain is located mid-sternal radiating up to his bilateral jaw and back. He went for a walk today and did have exertional chest pain and shortness of breath. He had associated nausea. He also endorses worsening shortness of breath with activity and at rest, with symptoms of orthopnea. Denies emesis, syncope or near syncope, or diaphoresis. Denies any fever, chills. No specific alleviating factors. His chest pain has improved since admission. He was started on IV heparin drip. D- dimer also elevated at 1.52. 04/05/2022 Patient underwent CTA which revealed no pulmonary embolism. Overnight he continued to have chest pain with relief with nitro. At bedside, his chest pain has resolved. He denies any shortness of breath currently. EKG this morning with recurrent PVCs, with anterior ST-T changes similar to prior EKG. Troponins have now peaked at 0.14. He is currently maintained on IV heparin, aspirin 325 mg daily, amlodipine 10 mg daily, atorvastatin 40 mg nightly, Lisinopril 10mg BID, PRN Nitro, Brilinta 90 m g twice a day Labs, sodium 140, potassium 3.5, BUN 14, serum creatinine 1.36 04/06 Patient seen and examined. Short run of nonsustained VT. Has been tolerating medications. Continued chest pressure however improved. Continued dyspnea with minimal exertion. He does admit to orthopnea and was placed on IV Lasix. 04/07 Patient seen and examined. Admits to continued minimal shortness breath however chest pain and pressure have resolved. Some atypical left arm pain. Overall states he feels well and better than previous. Creatinine stable. PHYSICAL EXAM: VITAL SIGNS: Reviewed. GENERAL: Well-developed in no acute distress. HEENT: Head is normocephalic. Neck supple. No JVD LUNGS: Respirations even and unlabored. Lungs diminished to auscultation bilaterally. HEART: Regular rate and rhythm. S1 and S2 heard. Systolic murmur noted. ABDOMEN: Soft. Nondistended. Nontender. EXTREMITIES: Normal range of motion. No clubbing or cyanosis. Peripheral pulses intact. Trace lower extremity edema NEUROLOGIC: Awake and alert. Oriented x 3. ASSESSMENT: Chest pain with elevated troponin, concern for NSTEMI Shortness of breath Elevated D-dimer rule out PE Acute on chronic heart failure with mildly reduced ejection fraction, 40-45% Coronary artery disease with previous CABG in 2015 History of CVA History of carotid stenosis with previous endarterectomy Peripheral vascular disease Hyperlipidemia Hypertension PLAN: Continue IV heparin. No change in chest pain and currently improved. Plan for heart catheterization tomorrow. Nothing by mouth after midnight. Await 2-D echo. Objective - Vital Signs Vital signs: Vital Signs Temp 98.1 F 04/07/22 11:54 Pulse 61 04/07/22 11:54 Resp 16 04/07/22 11:54 BP 131/67 04/07/22 11:54 Pulse Ox 99 04/07/22 11:54 FiO2 Intake & Output 04/06/22 04/07/22 04/07/22 18:59 06:59 18:59 Intake Total 421.523 360 Output Total 800 854 875 Balance -378.477 -854 -515 Weight 72.3 kg Intake: Intake, IV Titration 241.523 Amount Heparin Sod,Pork in 0.45% 241.523 NaCl 25,000 unit In 0.45 % NaCl 1 250ml.bag @ 12 UNITS/KG/HR 9.525 mls/hr IV .Q24H [facility] Rx#: [id number] Oral 180 360 Output: Urine 800 850 875 Stool 4 Other: Voiding Method Urinal Urinal Urinal - Labs CBC & Chem 7: 04/07/22 06:55 04/07/22 06:55 Labs: Abnormal Lab Results - Last 24 Hours (Table) 04/06/22 04/06/22 04/07/22 Range/Units 16:37 20:06 06:05 APTT (22.0-30.0) sec Chloride (98-107) mmol/L Glucose (74-99) mg/dL POC Glucose (mg/dL) 134 H 124 H 140 H (70-110) mg/dL 07/31/22 07/31/22 07/31/22 Range/Units 06:55 06:55 11:52 APTT 50.2 H (22.0-30.0) sec Chloride 111 H (98-107) mmol/L Glucose 143 H (74-99) mg/dL POC Glucose (mg/dL) 122 H (70-110) mg/dL
[2022-04-07] MEDS: HEPARIN SOD,PORK IN 0.45% NACL 25,000 UNIT in 0.45% NACL 1 250ML.BAG IV SCH (15:19)
[2022-04-07 16:49] LABS: Glucose,Whole Blood 180 mg/dL (70-110)
--- NOTE | 2022-04-07 17:28 | P.PN ---
Subjective From the records. The patient is a 58-year-old black male essentially admitted for anginal type symptoms with elevated troponin. Cardiology has been consulted and we are awaiting cardiac catheterization. The patient ended up having computed tomog maira scan with contrast and his kidney function did slightly become stressed. He now feels much better after treatment. Imdur has been started. Appreciate cardiology input. Underlying history of hypertension he has an underlying history of PAD with renal artery stenosis and CVA. Diabetes is fairly well-controlled otherwise. 04/06/2022. This is a pleasant 66 years old male who presents with chest pain and found to have elevated troponin suspicious for non-STEMI. 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 Currently he is on aspirin and brillinta . On the top of his heparin drip. He is hemodynamically stable. Labs are stable. He rates his chest pain as 2/10 today. No dyspnea. But he is complaining of from constipation. Echocardiogram is pending 04/07/2022 Patient with no chest pain today with very minimal dyspnea. He is still constipated after given her Colace, we don't that senna Patient remains on heparin drip and plan for cardiac cath tomorrow Flaps looks stable including CBC, BMP and magnesium Echocardiogram done but result is pending. Objective - Vital Signs Vital signs: Vital Signs Temp 98.1 F 04/07/22 11:54 Pulse 61 04/07/22 11:54 Resp 16 04/07/22 11:54 BP 131/67 04/07/22 11:54 Pulse Ox 99 04/07/22 11:54 FiO2 Intake & Output 04/06/22 04/07/22 04/07/22 18:59 06:59 18:59 Intake Total 421.523 360 Output Total 800 854 875 Balance -378.477 -854 -515 Weight 72.3 kg Intake: Intake, IV Titration 241.523 Amount Heparin Sod,Pork in 0.45% 241.523 NaCl 25,000 unit In 0.45 % NaCl 1 250ml.bag @ 12 UNITS/KG/HR 9.525 mls/hr IV .Q24H [facility] Rx#: [id number] Oral 180 360 Output: Urine 800 850 875 Stool 4 Other: Voiding Method Urinal Urinal Urinal - Exam GENERAL: The patient is alert and oriented x3, not in any acute distress. Well developed, well nourished. HEENT: Pupils are round and equally reacting to light. EOMI. No scleral icterus. No conjunctival pallor. Normocephalic, atraumatic. No pharyngeal erythema. No thyromegaly. CARDIOVASCULAR: S1 and S2 present. No murmurs, rubs, or gallops. PULMONARY: Chest is clear to auscultation, no wheezing or crackles. ABDOMEN: Soft, nontender, nondistended, normoactive bowel sounds. No palpable organomegaly. MUSCULOSKELETAL: No joint swelling or deformity. EXTREMITIES: No cyanosis, clubbing, or pedal edema. NEUROLOGICAL: Gross neurological examination did not reveal any focal deficits. SKIN: No rashes. no petechiae. - Labs CBC & Chem 7: 04/07/22 06:55 04/07/22 06:55 Labs: Abnormal Lab Results - Last 24 Hours (Table) 04/06/22 04/06/22 04/07/22 Range/Units 16:37 20:06 06:05 APTT (22.0-30.0) sec Chloride (98-107) mmol/L Glucose (74-99) mg/dL POC Glucose (mg/dL) 134 H 124 H 140 H (70-110) mg/dL 04/07/22 04/07/22 04/07/22 Range/Units 06:55 06:55 11:52 APTT 50.2 H (22.0-30.0) sec Chloride 111 H (98-107) mmol/L Glucose 143 H (74-99) mg/dL POC Glucose (mg/dL) 122 H (70-110) mg/dL Assessment and Plan Assessment: None STEMI with chest pain and elevated troponin Acute on chronic systolic CHF with ejection fraction 40-45% Acute kidney injury, slightly cardiorenal syndrome. The result. History of coronary artery disease status post CABG in 2015 Hypertension Elevated d-dimer with negative CTA for pulmonary embolism Plan: This is a pleasant 66 years old male who presents with non-STEMI Continue with heparin drip as well as aspirin and brillinta Cardiac cath per cardiology team. Labs and medication were reviewed.. Continue same treatment. Continue with symptomatic treatment. Resume home medication. Monitor lytes and vitals. DVT and GI prophylaxis. Further recommendations as per clinical course of the patient DVT prophylaxis: heparin GI Prophylaxis: Pepcid Prognosis is guarded
[2022-04-07] MEDS: ATORVASTATIN 40 MG TAB PO SCH (20:57)
[2022-04-07] MEDS: traZODone HCL 50 MG TAB PO SCH (20:57)
[2022-04-07] MEDS: SENNOSIDES 8.6 MG TAB PO SCH (20:57)
[2022-04-07 21:06] LABS: Glucose,Whole Blood 105 mg/dL (70-110)
[2022-04-08 05:11] LABS: Glucose,Whole Blood 111 mg/dL (70-110)
[2022-04-08] MEDS ORDERED: ATORVASTATIN 80 MG TAB PO ONE (07:00)
[2022-04-08] MEDS ORDERED: ASPIRIN 325 MG TAB PO ONE (07:00)
[2022-04-08] MEDS ORDERED: HEPARIN SODIUM,PORCINE 2,500 UNIT in SODIUM CHLORIDE 0.9% 250 ML IRRIGATION PRN (07:00)
[2022-04-08] MEDS ORDERED: HEPARIN SODIUM,PORCINE 10,000 UNIT in SODIUM CHLORIDE 0.9% 1,000 ML IRRIGATION PRN (07:00)
--- NOTE | 2022-04-08 07:56 | P.PN ---
Subjective Principal diagnosis: Congestive heart failure. This is 58-year-old black male essentially admitted for cardiac workup. He is scheduled for catheterization this morning. He states no new chest pain. No shortness of breath no voiding difficulties. Patient on heparin. Objective - Vital Signs Vital signs: Vital Signs Temp 97.5 F L 04/08/22 04:00 Pulse 69 04/08/22 04:00 Resp 12 04/08/22 04:00 BP 132/67 04/08/22 04:00 Pulse Ox 98 04/08/22 04:00 FiO2 Intake & Output 04/07/22 04/08/22 04/08/22 18:59 06:59 18:59 Intake Total 1330 Output Total 1575 Balance -245 Weight 72.8 kg Intake: Intake, IV Titration 250 Amount Heparin Sod,Pork in 0.45% 250 NaCl 25,000 unit In 0.45 % NaCl 1 250ml.bag @ 12 UNITS/KG/HR 9.525 mls/hr IV .Q24H [facility] Rx#: [id number] Oral 1080 Output: Urine 1575 Other: Voiding Method Urinal Urinal # Voids 1 2 - Constitutional General appearance: Present: average body habitus - EENT Eyes: Absent: abnormal pupil - Neck Neck: Absent: lymphadenopathy - Respiratory Respiratory: bilateral: diminished - Cardiovascular Rhythm: regular Heart sounds: normal: S1, S2 Abnormal Heart Sounds: Absent: S3 Gallop - Gastrointestinal General gastrointestinal: Present: soft. Absent: tenderness - Integumentary Integumentary: Absent: cellulitis - Labs CBC & Chem 7: 04/07/22 06:55 04/07/22 06:55 Labs: Abnormal Lab Results - Last 24 Hours (Table) 04/07/22 04/07/22 04/07/22 Range/Units 06:55 11:52 16:48 APTT (22.0-30.0) sec Chloride 111 H (98-107) mmol/L Glucose 143 H (74-99) mg/dL POC Glucose (mg/dL) 122 H 180 H (70-110) mg/dL 04/08/22 04/08/22 Range/Units 05:05 07:03 APTT 44.9 H (22.0-30.0) sec Chloride (98-107) mmol/L Glucose (74-99) mg/dL POC Glucose (mg/dL) 111 H (70-110) mg/dL Assessment and Plan (1) Congestive heart failure Current Visit: Yes Status: Acute Code(s): I50.9 - HEART FAILURE, UNSPECIFIED SNOMED Code(s): 90454157 (2) Elevated troponin Current Visit: Yes Status: Acute Code(s): R77.8 - OTHER SPECIFIED ABNORMALITIES OF PLASMA PROTEINS SNOMED Code(s): 490805975 (3) Abnormal EKG Current Visit: No Status: Acute Code(s): R94.31 - ABNORMAL ELECTROCARDIOGRAM [ECG] [EKG] SNOMED Code(s): 647161540 (4) Chest pain Current Visit: No Status: Acute Code(s): R07.9 - CHEST PAIN, UNSPECIFIED SNOMED Code(s): 99054325 (5) Diabetes Current Visit: No Status: Acute Code(s): E11.9 - TYPE 2 DIABETES MELLITUS WITHOUT COMPLICATIONS SNOMED Code(s): 68665969 (6) HTN (hypertension) Current Visit: No Status: Acute Code(s): I10 - ESSENTIAL (PRIMARY) HYPERTENSION SNOMED Code(s): 25255223 (7) Hyperlipemia Current Visit: No Status: Acute Code(s): E78.5 - HYPERLIPIDEMIA, UNSPECIFIED SNOMED Code(s): 42550786 Plan: Stabilize kidney function. Await cardiac catheterization today. We'll continue to follow.
[2022-04-08] MEDS: FAMOTIDINE 20 MG TAB PO SCH ×2 (09:16→20:49)
[2022-04-08] MEDS: TICAGRELOR 90 MG TAB PO SCH ×2 (09:17→20:48)
[2022-04-08] MEDS: FERROUS SULFATE 325 MG TAB PO SCH (09:17)
[2022-04-08] MEDS: ISOSORBIDE MONONITRATE ER 60 MG TAB.ER.24H PO SCH (09:17)
[2022-04-08] MEDS: hydrALAZINE HCL 50 MG TAB PO SCH ×2 (09:17→17:12)
[2022-04-08] MEDS: GABAPENTIN 400 MG CAP PO SCH ×3 (09:17→20:48)
[2022-04-08] MEDS: METOPROLOL SUCCINATE (ER) 50 MG TAB.ER.24H PO SCH (09:17)
[2022-04-08] MEDS: TAMSULOSIN 0.4 MG CAP.ER.24H PO SCH ×2 (09:17→20:48)
[2022-04-08] MEDS: DULoxetine HCL 60 MG CAPSULE.DR PO SCH (09:17)
[2022-04-08] MEDS: lisinopriL 10 MG TAB PO SCH ×2 (09:18→20:49)
[2022-04-08] MEDS: CHOLECALCIFEROL 25 MCG (1000 IU) TABLET PO SCH (09:18)
[2022-04-08] MEDS: amLODIPine 10 MG TAB PO SCH (09:18)
[2022-04-08 11:32] LABS: Glucose,Whole Blood 130 mg/dL (70-110)
[2022-04-08] MEDS ORDERED: VERAPAMIL 2.5 MG/ML 2 ML AMP ONE (13:07)
[2022-04-08] MEDS ORDERED: HEPARIN SODIUM 1,000 UN/ML (10ML VL) ONE (13:24)
[2022-04-08] MEDS ORDERED: IV FLUID CONTINUATION 1,000 ML IV ONE (13:58)
[2022-04-08] MEDS: MIDAZOLAM 2 MG/2 ML VIAL IVP ONE ×2 (13:58→14:05)
[2022-04-08] MEDS ORDERED: LIDOCAINE 1% INJ 10MG/ML (5 ML VIAL-PF) SQ ONE (14:01)
[2022-04-08] MEDS: VERAPAMIL SYRINGE (5 MG/10 ML) INTRAARTER ONE ×2 (14:05→14:28)
[2022-04-08] MEDS ORDERED: HEPARIN SODIUM 1,000 UN/ML (10ML VL) IV ONE (14:08)
[2022-04-08] MEDS ORDERED: IOPAMIDOL-370 100ML BTL INJ ONE (14:28)
[2022-04-08] MEDS: HEPARIN SOD,PORK IN 0.45% NACL 25,000 UNIT in 0.45% NACL 1 250ML.BAG IV SCH (15:07)
[2022-04-08 16:18] LABS: Glucose,Whole Blood 212 mg/dL (70-110)
[2022-04-08] MEDS: FUROSEMIDE 20 MG TAB PO SCH (17:04)
[2022-04-08 20:16] LABS: Glucose,Whole Blood 115 mg/dL (70-110)
[2022-04-08] MEDS: traZODone HCL 50 MG TAB PO SCH (20:48)
[2022-04-08] MEDS: SENNOSIDES 8.6 MG TAB PO SCH (20:48)
[2022-04-08] MEDS: ATORVASTATIN 40 MG TAB PO SCH (20:49)
--- NOTE | 2022-04-09 01:21 | CC ---
CARDIAC CATHETERIZATION REPORT PROCEDURES PERFORMED: Left heart catheterization, coronary angiography, and selective injection of the internal mammary and vein graft. PERFORMED BY: Dr. Dilcia Felder. SEDATION: Moderate conscious sedation time was 27 minutes. The patient was administered Versed. Oxygen saturation, hemodynamics, and EKG were monitored closely. CLINICAL INFORMATION: Mr. Michael Woodward is a 66-year-old gentleman with history of hypertension, hypercholesterolemia, peripheral arterial disease, and history of PCI and a previous inferior TN with circumflex intervention in 1993, followed by aortocoronary bypass surgery in 2015, at the with CARRERA to LAD and vein graft to the obtuse marginal branch of circumflex. The distal branches of RCA were small, and RCA was diffusely diseased. He had only 2 grafts. Because of symptoms of accelerated hypertension, he was hospitalized, also had chest pain and mild troponin elevation. He was advised cardiac cath because of [id number] TN, accelerated hypertension, and ongoing episodes of chest tightness, pressure, and shortness of breath. He has mild chronic kidney disease, and we hydrated him, and creatinine was 1.18 yesterday. Risks, benefits, options, and rationale were discussed with the patient at length. PROCEDURE NOTE: Under local anesthesia and strict aseptic precautions, a 6-Greek introducer was placed in the left radial artery. I used a right Opal catheter to cannulate the internal mammary graft, and also, the same catheter was used to check the right coronary artery as well as the vein graft to the obtuse marginal. I used a JL3.5 catheter for the left coronary injection. The same right Opal catheter was used to check LV pressure, but LV gram was not performed. The sheath was taken out, and TR band applied as per protocol with saturation in the fingers of the right hand of about 96%. Details of the procedure and the results were discussed with the patient and also with his nephew by phone. CARDIAC CATHETERIZATION FINDINGS: The left ventricular end-diastolic pressure was 7 mmHg. There was no gradient across the aortic valve. CORONARY ANGIOGRAPHY FINDINGS: LEFT INTERNAL MAMMARY ARTERY GRAFT: This graft is widely patent at its origin, course, and insertion site. Beyond the insertion site, there is competitive flow, but does not appear to be any significant stenosis in the LAD. SAPHENOUS VEIN GRAFT TO THE OBTUSE MARGINAL BRANCH OF CIRCUMFLEX: This graft is widely patent with remarkably good flow. No significant disease either in the graft or minor irregularity in the tunica-biloxi circumflex, which actually fills the tunica-biloxi circumflex obtuse marginal and also distal branches of the right coronary artery. This is a very healthy graft. No significant disease. LEFT MAIN CORONARY ARTERY: Short, patent vessel with a 40% distal disease and moderate calcification. No significant disease in the left main other than the 40% stenosis, and it bifurcates into LAD and circumflex. LEFT ANTERIOR DESCENDING CORONARY ARTERY: This vessel demonstrates some competitive flow, but the flow seems to be predominantly from the antegrade from tunica-biloxi LAD. There is about a 40% mid lesion, moderate calcification, but remarkably good flow in all the branches of the LAD including the septal and diagonal branches. The left main distally has a 40% stenosis, and the LAD has a 40% mid lesion after the origin of a septal branch. LEFT POSTERIOR CIRCUMFLEX CORONARY ARTERY: This vessel is totally occluded, and very limited antegrade flow is noted. There is a graft to the OM that fills almost the entire circumflex. RIGHT CORONARY ARTERY: This is a codominant vessel, has diffuse disease in the ostium and the proximal and midportion with limited flow in the distal branches. The entire vessel has 70% to 90% narrowing and no significant distal flow. FINAL IMPRESSION: This patient has normal filling pressures, no gradient, codominant system with diffuse disease in right coronary artery, which is worsened over the last 7 years. He has a codominant system. Left anterior descending has a 40% mid lesion. Left main has a distal 40% lesion. Circumflex is totally occluded, but the vein graft to the circumflex is widely patent with good flow. RECOMMENDATIONS: Findings were discussed with the patient and his nephew. I am recommending continued medical therapy with risk factor modification, hydration, recheck of his creatinine tomorrow, and then he will be discharged if stable. MMODL / IJN: [id number] /
[2022-04-09] MEDS: hydrALAZINE HCL 50 MG TAB PO SCH ×2 (01:30→09:06)
[2022-04-09 06:28] LABS: Glucose,Whole Blood 126 mg/dL (70-110)
[2022-04-09 08:20] LABS: HCT 45.1 % (39.0-53.0); HGB 14.5 gm/dL (13.0-17.5); MCH 29.2 pg (25.0-35.0); MCHC 32.2 g/dL (31.0-37.0); MCV 90.7 fL (80.0-100.0); Mean Platelet Volume 8.7; Platelet Count 221 k/uL (150-450); RBC 4.97 m/uL (4.30-5.90); RDW 14.7 % (11.5-15.5); WBC 5.7 k/uL (3.8-10.6)
[2022-04-09 08:33] LABS: Calcium 8.9 mg/dL (8.4-10.2); Potassium 4.7 mmol/L (3.5-5.1)
[2022-04-09 08:48] VITALS: RESP 13
[2022-04-09] MEDS ORDERED: ASPIRIN 325 MG TAB PO SCH (09:00)
[2022-04-09] MEDS ORDERED: ASPIRIN 81 MG PO SCH (09:00)
[2022-04-09] MEDS: ISOSORBIDE MONONITRATE ER 60 MG TAB.ER.24H PO SCH (09:05)
[2022-04-09] MEDS: amLODIPine 10 MG TAB PO SCH (09:05)
[2022-04-09] MEDS: CHOLECALCIFEROL 25 MCG (1000 IU) TABLET PO SCH (09:05)
[2022-04-09] MEDS: GABAPENTIN 400 MG CAP PO SCH (09:05)
[2022-04-09] MEDS: FUROSEMIDE 20 MG TAB PO SCH (09:05)
[2022-04-09] MEDS: TAMSULOSIN 0.4 MG CAP.ER.24H PO SCH (09:05)
[2022-04-09] MEDS: FERROUS SULFATE 325 MG TAB PO SCH (09:06)
[2022-04-09] MEDS: FAMOTIDINE 20 MG TAB PO SCH (09:06)
[2022-04-09] MEDS: METOPROLOL SUCCINATE (ER) 50 MG TAB.ER.24H PO SCH (09:06)
[2022-04-09] MEDS: lisinopriL 10 MG TAB PO SCH (09:06)
[2022-04-09] MEDS: DULoxetine HCL 60 MG CAPSULE.DR PO SCH (09:06)
[2022-04-09] MEDS: TICAGRELOR 90 MG TAB PO SCH (09:06)
--- NOTE | 2022-04-09 11:22 | P.PN ---
Subjective This is a 66 year old male with a past medical history significant for CVA, carotid stenosis with previous endarterectomy, peripheral vascular disease, ischemic cardiomyopathy, coronary artery disease with previous CABG 02/2015, previous stenting in 1983 and , hyperlipidemia, and hypertension. Patient follows in the office with Dr. Felder. We have been asked to see the patient in consultation for elevated troponin. Patient presents to the ER with chest pain and shortness of breath and cough. Patient states he has been having intermittent chest pain for 3 weeks, has progressively worsened. His pain is located mid-sternal radiating up to his bilateral jaw and back. He went for a walk today and did have exertional chest pain and shortness of breath. He had associated nausea. He also endorses worsening shortness of breath with activity and at rest, with symptoms of orthopnea. Denies emesis, syncope or near syncope, or diaphoresis. Denies any fever, chills. No specific alleviating factors. His chest pain has improved since admission. He was started on IV heparin drip. D- dimer also elevated at 1.52. CTA was negative for PE. Secondary to contrast patient had RAMON and cardiac cath was post poned. 04/08/2022- Patient underwent cardiac catheterization with Dr. Felder which revealed worsened diffuse disease in the RCA 70-90% stenosis, LAD with 40% mid lesion, left main has distal 40% lesion. Circumflex is totally occluded. Medical therapy was recommended 04/09/2022 Patient seen and examined at bedside, no acute distress. Denies any chest pain or shortness of breath. His vital signs are stable. no complaints He is currently maintained on aspirin 81 mg daily, amlodipine 10 mg daily, atorvastatin 40 mg nightly, Lisinopril 10mg BID, PRN Nitro, Brilinta 90 mg twice a day, hydralazine 50 mg 3 times a day, Imdur 60 mg daily, Lasix 20 mg daily, metoprolol succinate 50 mg daily Labs, sodium 139, potassium 4.7, BUN 13, serum creatinine 1.21 PHYSICAL EXAM: VITAL SIGNS: Reviewed. GENERAL: Well-developed in no acute distress. HEENT: Head is normocephalic. Neck supple. No JVD LUNGS: Respirations even and unlabored. Lungs diminished to auscultation bilaterally. HEART: Regular rate and rhythm. S1 and S2 heard. Systolic murmur noted. ABDOMEN: Soft. Nondistended. Nontender. EXTREMITIES: Normal range of motion. No clubbing or cyanosis. Peripheral pulses intact. Trace lower extremity edema SKIN: Left radial cath site clean, dry. edema present, hematoma improved 2+ pulses NEUROLOGIC: Awake and alert. Oriented x 3. ASSESSMENT: Chest pain with elevated troponin, concern for NSTEMI Shortness of breath Elevated D-dimer rule out PE Acute on chronic heart failure with mildly reduced ejection fraction, 40-45% Coronary artery disease with previous CABG in 2015 History of CVA History of carotid stenosis with previous endarterectomy Peripheral vascular disease Hyperlipidemia Hypertension PLAN: Increase atorvastatin to 80mg nightly Continue Hydralazine 50mg TID, Imdur 60mg daily Continue amlodipine, Aspirin, statin, Brilinta Continue home Lisinopril, metoprolol succinate From cardiology perspective, patient stable to be discharged home. Follow-up with Dr. Felder in one week Nurse practitioner note has been reviewed by physician. Signing provider agrees with the documented findings, assessment, and plan of care. Objective - Vital Signs Vital signs: Vital Signs Temp 98.0 F 04/09/22 08:44 Pulse 75 04/09/22 08:44 Resp 13 04/09/22 08:44 BP 149/78 04/09/22 08:44 Pulse Ox 99 04/09/22 08:44 FiO2 Intake & Output 04/08/22 04/09/22 04/09/22 18:59 06:59 18:59 Intake Total 230 Output Total 254 600 Balance -24 -600 Weight 72.4 kg Intake: IV 50 Oral 180 Output: Urine 250 600 Stool 4 Other: Voiding Method Urinal Urinal Urinal # Voids 2 3 - Labs CBC & Chem 7: 04/09/22 07:41 04/09/22 07:41 Labs: Abnormal Lab Results - Last 24 Hours (Table) 04/08/22 04/08/22 04/08/22 Range/Units 11:31 16:16 20:15 Chloride (98-107) mmol/L Carbon Dioxide (22-30) mmol/L Glucose (74-99) mg/dL POC Glucose (mg/dL) 130 H 212 H 115 H (70-110) mg/dL 04/09/22 04/09/22 Range/Units 06:26 07:41 Chloride 112 H (98-107) mmol/L Carbon Dioxide 20 L (22-30) mmol/L Glucose 151 H (74-99) mg/dL POC Glucose (mg/dL) 126 H (70-110) mg/dL
[2022-04-09 11:28] VITALS: BMI 25.0
[2022-04-09 11:37] LABS: Glucose,Whole Blood 116 mg/dL (70-110)
[2022-04-09 12:01] VITALS: BP 114/71; PULSE 77; TEMP 98.3
[2022-04-09] MEDS ORDERED: ATORVASTATIN 80 MG TAB PO SCH (21:00)
--- NOTE | 2022-04-11 07:35 | CDI ---
Documentation Clarification Form Date: 04/11/2022 07:23:00 AM From: Helen Aj Admit Date: 04/04/2022 02:04:00 PM Patient Name: Michael Woodward Visit Number: [id number] Discharge Date: 04/09/2022 02:29:00 PM ATTENTION: The Clinical Documentation Specialists (CDI) and [facility] Coding Staff appreciate your assistance in clarifying documentation. Please respond to the clarification below the line at the bottom and electronically sign. The CDI & [facility] Coding staff will review the response and follow-up if needed. Please note: Queries are made part of the Legal Health Record. If you have any questions, please contact the author of this message via ITS. Dr. Rivas Bragg Myocardial infarction (NSTEMI) is documented by Dr. Shaw in PN'S . Cardiology documents suspicion for NSTEMI prior to cardiac cath. Elevated troponins is within your documentation. Additional clarification regarding if patient had an NSTEMI or was it ruled out is needed. History/Risk Factors: CHF, Acute Respiratory failure, HTN, DM, CAD previous CABG, previous IN Clinical Indicators: Troponin: .141, .138, .096 EKG Results: HR 95 PVC's Treatment: Cardiac cath, heparin Please clarify if patient had NSTEMI or was it ruled out [ ] NSTEMI (type 1) [x ] NSTEMI (type 1) ruled out [ ] Type II IN due to (please specify etiology) [ ] Unable to determine [ ] Other Condition, please specify MTDD
--- NOTE | 2022-04-16 21:06 | P.DS ---
Providers Date of admission: 04/04/22 14:04 Attending physician: Rivas Bragg Consults: 04/04/22 14:03 Consult Physician Urgent Consulting Provider: [facility] Consult Reason/Comments: elevated troponin, CHF Do you want consulting provider notified?: Already Contacted Primary care physician: Rivas Bragg - Discharge Diagnosis(es) (1) Congestive heart failure Status: Acute (2) Elevated troponin Status: Acute (3) Abnormal EKG Status: Acute (4) Chest pain Status: Acute (5) Diabetes Status: Acute (6) HTN (hypertension) Status: Acute (7) Hyperlipemia Status: Acute Hospital Course: This is discharge summary 66-year-old black male who was admitted essentially for elevated troponin. Multiple histories of hypertension with coronary artery disease. The patient was stabilized over the weekend with appropriate anticoagulation and he ended up having cardiac catheterization. The patient was stable medical management was instituted and he was discharged in stable condition. The patient was tolerating diet no overt chest pressure and no voiding difficulties on discharge. Patient Condition at Discharge: Serious Plan - Discharge Summary Discharge Rx Participant: Yes New Discharge Prescriptions: New hydrALAZINE HCL [Apresoline] 50 mg PO TID #90 tab Isosorbide Mononitrate ER [Imdur] 60 mg PO DAILY #30 tab Furosemide [Lasix] 20 mg PO DAILY #30 tab Famotidine [Pepcid] 20 mg PO BID #60 tab Atorvastatin [Lipitor] 80 mg PO HS #90 tab Nitroglycerin Sl Tabs [Nitrostat] 0.4 mg SUBLINGUAL Q5M PRN #50 tab PRN Reason: Chest Pain Continue traZODone HCL [Desyrel] 50 mg PO HS Ferrous Sulfate [Iron] 325 mg PO DAILY Tamsulosin [Flomax] 0.4 mg PO BID lisinopriL [Zestril] 10 mg PO BID #0 Metoprolol Succinate (ER) [Toprol XL] 25 mg PO DAILY #30 tab Cholecalciferol [Vitamin D3 (25 Mcg = 1000 Iu)] 25 mcg PO DAILY amLODIPine [Norvasc] 10 mg PO DAILY cilostazoL [Pletal] 100 mg PO BID Gabapentin [Neurontin] 400 mg PO TID Ticagrelor [Brilinta] 90 mg PO BID #60 tab Aspirin 325 mg PO DAILY DULoxetine HCL [Cymbalta] 60 mg PO DAILY Discontinued Atorvastatin [Lipitor] 40 mg PO HS Discharge Medication List Ferrous Sulfate [Iron] 325 mg PO DAILY 03/17/17 [History] traZODone HCL [Desyrel] 50 mg PO HS 03/17/17 [History] Gabapentin [Neurontin] 400 mg PO TID 05/03/21 [History] cilostazoL [Pletal] 100 mg PO BID 05/03/21 [History] Ticagrelor [Brilinta] 90 mg PO BID #60 tab 05/07/21 [Rx] Tamsulosin [Flomax] 0.4 mg PO BID 07/03/21 [History] Metoprolol Succinate (ER) [Toprol XL] 25 mg PO DAILY #30 tab 07/06/21 [Rx] lisinopriL [Zestril] 10 mg PO BID #0 07/06/21 [Rx] Aspirin 325 mg PO DAILY 10/22/21 [History] Cholecalciferol [Vitamin D3 (25 Mcg = 1000 Iu)] 25 mcg PO DAILY 10/22/21 [History] amLODIPine [Norvasc] 10 mg PO DAILY 10/22/21 [History] DULoxetine HCL [Cymbalta] 60 mg PO DAILY 04/04/22 [History] Atorvastatin [Lipitor] 80 mg PO HS #90 tab 04/09/22 [Rx] Famotidine [Pepcid] 20 mg PO BID #60 tab 04/09/22 [Rx] Furosemide [Lasix] 20 mg PO DAILY #30 tab 04/09/22 [Rx] Isosorbide Mononitrate ER [Imdur] 60 mg PO DAILY #30 tab 04/09/22 [Rx] Nitroglycerin Sl Tabs [Nitrostat] 0.4 mg SUBLINGUAL Q5M PRN #50 tab 04/09/22 [Rx] hydrALAZINE HCL [Apresoline] 50 mg PO TID #90 tab 04/09/22 [Rx] Follow up Appointment(s)/Referral(s): Travon Felder MD [STAFF PHYSICIAN] - 1 Week ([facility] will call you and schedule the appointment. ) Rivas Bragg MD [Primary Care Provider] - 04/11/22 1:00 pm Patient Instructions/Handouts: Heart Failure (DC), Heart Catheterization (DC) Discharge Disposition: HOME SELF-CARE
== END 2022-04-09 14:29 | disposition home or self-care (01) | DRG 286 ==
LOC: EC 10:56 → 3SCARD 14:04
PROVIDERS: ADMIT Family Medicine; ATTEND Family Medicine
PROC: 4A023N7 Measurement of Cardiac Sampling and Pressure, Left Heart, Percutaneous Approach (ICD-10-PCS; principal; 2022-04-08 12:05)
PROC: B2111ZZ Fluoroscopy of Multiple Coronary Arteries using Low Osmolar Contrast (ICD-10-PCS; principal; 2022-04-08 12:05)
PROC: B2131ZZ Fluoroscopy of Multiple Coronary Artery Bypass Grafts using Low Osmolar Contrast (ICD-10-PCS; principal; 2022-04-08 12:05)
DX: I13.0 Hypertensive heart and chronic kidney disease with heart failure and stage 1 through stage 4 chronic kidney disease, or unspecified chronic kidney disease (principal); I50.23 Acute on chronic systolic (congestive) heart failure; N17.9 Acute kidney failure, unspecified; I69.354 Hemiplegia and hemiparesis following cerebral infarction affecting left non-dominant side; I47.2 Ventricular tachycardia; E11.22 Type 2 diabetes mellitus with diabetic chronic kidney disease; E11.51 Type 2 diabetes mellitus with diabetic peripheral angiopathy without gangrene; E78.5 Hyperlipidemia, unspecified; F32.A Depression, unspecified; F41.9 Anxiety disorder, unspecified; I25.10 Atherosclerotic heart disease of native coronary artery without angina pectoris; I25.2 Old myocardial infarction; I25.5 Ischemic cardiomyopathy; I49.3 Ventricular premature depolarization; G43.909 Migraine, unspecified, not intractable, without status migrainosus; I70.1 Atherosclerosis of renal artery; J44.9 Chronic obstructive pulmonary disease, unspecified; N18.9 Chronic kidney disease, unspecified; K59.00 Constipation, unspecified; Z95.1 Presence of aortocoronary bypass graft; Z95.820 Peripheral vascular angioplasty status with implants and grafts; R77.8 Other specified abnormalities of plasma proteins; Z20.822 Contact with and (suspected) exposure to COVID-19; Z79.02 Long term (current) use of antithrombotics/antiplatelets; Z79.82 Long term (current) use of aspirin; Z79.899 Other long term (current) drug therapy; Z82.3 Family history of stroke; Z82.49 Family history of ischemic heart disease and other diseases of the circulatory system; Z28.21 Immunization not carried out because of patient refusal; Z87.891 Personal history of nicotine dependence; Z98.61 Coronary angioplasty status
CPT/HCPCS: 36415; 71046; 71275; 80048; 80053; 81003; 83605; 83735; 83880; 84484; 85025; 85027; 85379; 85610; 85730; 87502; 87635; 93005; 93306; 93458

== ENCOUNTER → 2023-07-08 | Outpatient (CLI) | payer OTHER ==
--- NOTE | 2023-07-08 12:40 | US ---
EXAMINATION TYPE: US arterial UE single level DATE OF EXAM: 07/08/2023 10:00 AM CLINICAL INDICATION: Male, 67 years old with history of I73.9 PERIPHERAL VASCULAR DISEASE; BP discrep prudencio, Peripheral vascular disease. History of: Smoker: Previous Hypertension: Yes Diabetic: No Hyperlipidemia: Yes TIA/CVA: Yes, hx of 2 strokes Previous Vascular Surgery: Yes CAD: No [place]: Yes, hx of 3 heart attacks Vascular Ulcers: No Patient has cardiac and lower extremity stents. Patient has a history of unequal brachial pressures. Doppler Waveforms: Right: Axillary: Biphasic Brachial: Biphasic Radial: Biphasic Ulnar: Biphasic Left: Axillary: Biphasic Brachial: Biphasic Radial: Biphasic Ulnar: Biphasic Wrist Brachial Indices: Right: 0.87 Left: CNO Brachial pressures checked twice, right qfhmjkcw=358, left feqsyqtr=469. Patient states he has history of unequal BP. IMPRESSION: 1. Biphasic waveforms. Ratios could not be obtained due to inability to compress left-sided vascular structures. This makes the exam nondiagnostic. Consider CTA if additional evaluation would be of bene fit.
--- NOTE | 2023-07-08 12:42 | US ---
EXAMINATION TYPE: US carotid duplex BILAT DATE OF EXAM: 07/08/2023 COMPARISON: 05/04/21 CLINICAL INDICATION: Male, 67 years old with history of I65.23 OCCLUSION AND STENOSIS OF CAROTID CHRISTIANE MALCOLM; Atherosclerosis, pt has history of PAD and stents in both legs, stents on the heart, 3 strokes, unequal brachial pressures, Lt arm 20-30 higher TECHNIQUE: Carotid duplex ultrasound examination. Indirect Doppler criteria was utilized. FINDINGS: EXAM MEASUREMENTS: RIGHT: Peak Systolic Velocity (PSV) cm/sec ----- Right CCA: 136.7 ----- Right ICA: 108.4 ----- Right ECA: 73.2 ICA/CCA ratio: 0.8 RIGHT: End Diastole cm/sec ----- Right CCA: 28.4 ----- Right ICA: 0.0 ----- Right ECA: 0.0 LEFT: Peak Systolic Velocity (PSV) cm/sec ----- Left CCA: 101.8 ----- Left ICA: 118.5 ----- Left ECA: 82.3 ICA/CCA ratio: 1.2 LEFT: End Diastole cm/sec ----- Left CCA: 27.0 ----- Left ICA: 37.0 ----- Left ECA: 0.0 VERTEBRALS (direction of flow): Right Vertebral: Antegrade Left Vertebral: Antegrade Rhythm: Arrhythmia (image 25 and 47) FINISHING AND SHIPPING 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 Narrowing is le ss than 50% carotid bifurcations. Criteria for Assigning % of Stenosis / Diameter reduction (Estimation based on the indirect measurements of the internal carotid artery velocities (ICA PSV). 1. Normal (no stenosis)=ICA PSV < 125 cm/s: ratio < 2.0: ICA EDV<40 cm/s. 2. Less than 50% stenosis=ICA PSV < 125 cm/s: ratio < 2.0: ICA EDV<40 cm/s. 3. 50 to 69% stenosis=ICA PSV of 125 to 230 cm/s: ration 2.0 ? 4.0: ICA EDV 40-100 cm/s. 4. Greater than 70% stenosis to near occlusion= ICA PSV > 230 cm/s: ratio > 4.0: ICA EDV > 100 cm/s. 5. Near occlusion= ICA PSV velocities may be low or undetectable: variable ratio and ICA EDV. 6. Total occlusion=unable to detect flow.
== END | disposition home or self-care (01) ==
LOC: RADUSWWP 08:34
DX: I65.23 Occlusion and stenosis of bilateral carotid arteries (principal); I73.9 Peripheral vascular disease, unspecified; I10 Essential (primary) hypertension; E78.5 Hyperlipidemia, unspecified
CPT/HCPCS: 93880; 93922

== ENCOUNTER → 2023-07-28 | Outpatient (CLI) | payer OTHER ==
[2023-07-28 09:57] LABS: African American GFR (CKD) 69 (>60 ml/min/1.73 sqM); Blood Urea Nitrogen 14 mg/dL (9-20); Non-African American GFR(CKD) 60 (>60 ml/min/1.73 sqM)
--- NOTE | 2023-07-28 11:45 | CT ---
EXAMINATION TYPE: CT angio upper extremity RT CT DLP: 314 mGycm, Automated exposure control for dose reduction was used. DATE OF EXAM: 07/28/2023 11:30 AM COMPARISON: 05/03/2021. CLINICAL INDICATION:Male, 67 years old with history of I73.9 PERIPHERAL VASCULAR DISEASE, UNSPECIFIED ; [facility], TECHNIQUE: Axial images were obtained of the CT angio upper extremity RT, Additional coronal and sagi ttal reformatted images and soft tissue and bone window were obtained for review. 3-D and MIP reconst ruction was created on a separate workstation. Contrast used: mL of , 100 cc Isovue 370. Oral contrast used: (None if empty) FINDINGS: The brachiocephalic artery is patent. The right subclavian artery, right axillary artery, b rachial and proximal radial and ulnar arteries are patent. Poor bolus timing limits evaluation of the distal radial and ulnar arteries. There is scattered atherosclerotic plaque along the courses of the arterial vasculature. There is no evidence of fracture, subluxation, or dislocation. No significant soft tissue swelling or joint effusion is identified. No focal muscular atrophy or edema is identifi ed. No radiopaque foreign body identified. Visualized portions of the lung demonstrate no evidence for focal consolidation, pneumothorax or pleu ral effusion. 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 IMPRESSION: 1. Limited evaluation of the radial and ulnar arteries distally secondary to bolus timing. Consider angiography in the [employer] for better characterization versus ultrasound evaluation of the radial ul ruslan arteries. Otherwise the visualized portions of the right upper extremity are patent without evide nce of significant stenosis with scattered atherosclerotic calcified plaque. 2. These form dilation of the descending thoracic aorta up to 3.3 cm stable back to at least 05/03/20 21.
== END | disposition home or self-care (01) ==
LOC: RADCTMAIN 07-25 09:29
DX: I73.9 Peripheral vascular disease, unspecified (principal); I77.810 Thoracic aortic ectasia
CPT/HCPCS: 82565; 84520; 73206; Q9967

== ENCOUNTER → 2023-12-22 | Outpatient (CLI) | payer OTHER ==
--- NOTE | 2023-12-22 16:37 | US ---
EXAMINATION TYPE: US arterial LE multi level DATE OF EXAM: 12/22/2023 3:31 PM CLINICAL INDICATION: Male, 68 years old with history of I73.9 PVDPERIPHERAL VASCULAR DISEASE, UNSPECI FIED; PVD. Wound left ankle x 6 months. Wound right great toe x 1 year. Pain bilateral legs for years History of: Smoker: previous Hypertension: yes Diabetic: no Hyperlipidemia: yes TIA/CVA: yes Previous Vascular Surgery: CABG x 2 [place]: yes Vascular Ulcers: yes Doppler Waveforms: Right: Irregular Left: Irregular Right Brachial Pressure: 154 Left Brachial Pressure: 167 Ankle-Brachial Indices: Right: steady flow heard, unable to obtain discernable waveform Left: 0.42 (Vessel hardening > 1.4; Normal 0.9 - 1.4, Moderate 0.7 - 0.9, Severe 0.5-0.7) IMPRESSION: Irregular waveforms with findings suggestive of severe left peripheral vascular disease b y ankle brachial indices. Nondiagnostic right GENI.
== END | disposition home or self-care (01) ==
LOC: RADUSWWP 13:21
PROVIDERS: ATTEND Family Medicine
DX: I73.9 Peripheral vascular disease, unspecified (principal)
CPT/HCPCS: 93922

== ENCOUNTER 2024-01-18 14:21 | Emergency (ER) | payer OTHER ==
--- NOTE | 2024-01-18 15:07 | ED ---
Extremity Problem HPI - General Chief complaint: Extremity Problem,Nontraumatic Stated complaint: Infected L leg Time Seen by Provider: 01/18/24 14:48 Source: patient, RN notes reviewed Mode of arrival: ambulatory Limitations: no limitations - History of Present Illness Initial comments: This is a 68-year-old male with a history of peripheral or vascular disease, NC, CVA who presents emergency department chief complaint of left lower extremity and ankle pain. Patient states that he has a chronic wound on his left leg where he has been following with a vascular specialist and treated with oral antibiotics, the current antibiotics he is on and has a couple of the pills left to take. States that the pain has been worsening over the past few days. He denies feelings of nausea, chills, fevers, body aches, fatigue. Patient states that his neck follow-up appointment is at the end of the month. He denies history of DVT or PE. He is also denies shortness of breath, dizziness, chest pain or pressure, palpitations. - Related Data Home Medications Medication Instructions Recorded Confirmed Ferrous Sulfate [Iron] 325 mg PO DAILY 03/17/17 04/04/22 traZODone HCL [Desyrel] 50 mg PO HS 03/17/17 04/04/22 Gabapentin [Neurontin] 400 mg PO TID 05/03/21 04/04/22 cilostazoL [Pletal] 100 mg PO BID 05/03/21 04/04/22 Tamsulosin [Flomax] 0.4 mg PO BID 07/03/21 04/04/22 Aspirin 325 mg PO DAILY 10/22/21 04/04/22 Cholecalciferol [Vitamin D3 (25 25 mcg PO DAILY 10/22/21 04/04/22 Mcg = 1000 Iu)] amLODIPine [Norvasc] 10 mg PO DAILY 10/22/21 04/04/22 DULoxetine HCL [Cymbalta] 60 mg PO DAILY 04/04/22 04/04/22 Previous Rx's Medication Instructions Recorded Ticagrelor [Brilinta] 90 mg PO BID #60 tab 05/07/21 Metoprolol Succinate (ER) [Toprol 25 mg PO DAILY #30 tab 07/06/21 XL] lisinopriL [Zestril] 10 mg PO BID #0 07/06/21 Atorvastatin [Lipitor] 80 mg PO HS #90 tab 04/09/22 Famotidine [Pepcid] 20 mg PO BID #60 tab 04/09/22 Furosemide [Lasix] 20 mg PO DAILY #30 tab 04/09/22 Isosorbide Mononitrate ER [Imdur] 60 mg PO DAILY #30 tab 04/09/22 Nitroglycerin Sl Tabs [Nitrostat] 0.4 mg SUBLINGUAL Q5M PRN #50 tab 04/09/22 hydrALAZINE HCL [Apresoline] 50 mg PO TID #90 tab 04/09/22 Allergies Allergy/AdvReac Type Severity Reaction Status Date / Time No Known Allergies Allergy Verified 01/18/24 14:37 Review of Systems ROS Statement: Those systems with pertinent positive or pertinent negative responses have been documented in the HPI. ROS Other: All systems not noted in ROS Statement are negative. 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 bilateral renal artery stenting, balloon angioplasty of coronary artery, open heart surgery 02/2015-double bypass Past Anesthesia/Blood Transfusion Reactions: No Reported Reaction Past Psychological History: Anxiety, Depression Smoking Status: Former smoker Past Alcohol Use History: None Reported Past Drug Use History: Marijuana - Past Family History Brother(s) Family Medical History: Myocardial Infarction (NC) Father Family Medical History: CVA/TIA, Myocardial Infarction (NC) Additional Family Medical History / Comment(s): ANEURYSM Mother Family Medical History: CVA/TIA, Deep Vein Thrombosis (DVT), Myocardial Infarction (NC) Sister(s) Family Medical History: Cancer, Myocardial Infarction (NC) Additional Family Medical History / Comment(s): 3 sisters- [place] General Exam Limitations: no limitations General appearance: alert, in no apparent distress Head exam: Present: atraumatic, normocephalic, normal inspection Eye exam: Present: normal appearance, PERRL, EOMI. Absent: scleral icterus, conjunctival injection, periorbital swelling ENT exam: Present: normal exam, mucous membranes moist Neck exam: Present: normal inspection. Absent: tenderness, meningismus, lymphadenopathy Respiratory exam: Present: normal lung sounds bilaterally. Absent: respiratory distress, wheezes, rales, rhonchi, stridor Cardiovascular Exam: Present: regular rate, normal rhythm, normal heart sounds. Absent: systolic murmur, diastolic murmur, rubs, gallop, clicks GI/Abdominal exam: Present: soft, normal bowel sounds. Absent: distended, tenderness, guarding, rebound, rigid Left Lower Leg exam: Present: tenderness, swelling, abrasion (2 cm wound over the lateral ankle with signs of purulence, no drainage or surrounding erythema, area is edematous). Absent: full ROM Ankle exam: Present: tenderness, swelling. Absent: normal inspection (see above) Right Foot/Toe exam: Present: tenderness (first digit abscess and ulceration at the distal end). Absent: normal inspection, full ROM Back exam: Present: normal inspection Neurological exam: Present: alert, oriented X3, CN II-XII intact Psychiatric exam: Present: normal affect, normal mood Skin exam: Present: warm, dry, intact, normal color, other (see above for description of chronic wounds and edema). Absent: rash Course Vital Signs 01/18/24 01/18/24 14:36 18:01 Temperature 98.2 F 98.8 F Pulse Rate 82 Respiratory 18 Rate Blood Pressure 98/67 O2 Sat by Pulse 99 Oximetry Medical Decision Making - Medical Decision Making Was pt. sent in by a medical professional or institution (, PA, SPECTROSCOPIST, urgent care, hospital, or skilled nursing...) When possible be specific @ -No Did you speak to anyone other than the patient for history (EMS, parent, family, police, friend...)? What history was obtained from this source @ -No Did you review nursing and triage notes (agree or disagree)? Why? @ -I reviewed and agree with nursing and triage notes Were old charts reviewed (outside hosp., previous admission, EMS record, old EKG, old radiological studies, urgent care reports/EKG's, skilled nursing records)? Report findings @ -No old charts were reviewed Differential Diagnosis (chest pain, altered mental status, abdominal pain women, abdominal pain men, vaginal bleeding, weakness, fever, dyspnea, syncope, headache, dizziness, GI bleed, back pain, seizure, CVA, palpatations, mental health, musculoskeletal)? @ -Peripheral vascular disease, cellulitis, osteomyelitis, chronic wound, chronic leg pain, this list is not all inclusive. EKG interpreted by me (3pts min.). @ -None X-rays interpreted by me (1pt min.). @ -X-ray of the right foot with history intra-articular abnormality X-ray of the left ankle reveals diffuse osteopenia with mild to moderate soft tissue swelling over the medial ankle and no acute trauma no fracture or dislocation. CT interpreted by me (1pt min.). @ -None done U/S interpreted by me (1pt. min.). @ -None done What testing was considered but not performed or refused? (CT, X-rays, U/S, labs)? Why? @ -None What meds were considered but not given or refused? Why? @ -None Did you discuss the management of the patient with other professionals (kwesi jean baptiste i.e. , PA, SPECTROSCOPIST, lab, RT, psych nurse, medical social consultant, pipe smoker machine operator, teacher, chief administrative officer, trimming caser)? Give summary @ -No Was smoking cessation discussed for >3mins.? @ -No Was critical care preformed (if so, how long)? @ -No Were there social determinants of health that impacted care today? How? (Homelessness, low income, unemployed, alcoholism, drug addiction, transportation, low edu. Level, literacy, decrease access to med. care, nursing home, rehab)? @ -No Was there de-escalation of care discussed even if they declined (Discuss DNR or withdrawal of care, Hospice)? DNR status @ -No What co-morbidities impacted this encounter? (DM, HTN, Smoking, COPD, CAD, Cancer, CVA, ARF, Chemo, Hep., AIDS, mental health diagnosis, sleep apnea, morbid obesity)? @ -Hypertension Was patient admitted / discharged? Hospital course, mention meds given and route, prescriptions, significant lab abnormalities, going to OR and other pertinent info. @ -68-year-old male chief complaint of left lower extremity pain. On examination patient noted to have chronic ulcer of the lateral malleolus. Patient is neurovascular intact to left lower extremity. There are not signs concerning for ischemia as the leg is blanchable, pedal pulse intact and patient denies paresthesias. Laboratory tests ordered for potential infection in addition to x-rays to rule out osteomyelitis. Laboratory results including CBC, CMP and lactate within normal limits. Flu, x-rays unremarkable for acute infection. On reevaluation, patient states that his pain has somewhat improved after medication. At bedside discussion, patient states that [facility] pain of his left foot on Friday and has not been able to cotton picker the prescription since. At this time will defer pain medication prescription Patient is stable for discharge. All questions answered at bedside. Recommend that patient complete full course of antibiotics as prescribed and his vascular specialist. Also recommend patient follows up with vascular specialist this week for further evaluation. Patient is agreed with plan. Case discussed with Dr. Metz Undiagnosed new problem with uncertain prognosis? @ -No Drug Therapy requiring intensive monitoring for toxicity (Heparin, Nitro, Insulin, Cardizem)? @ -No Were any procedures done? @ -No Diagnosis/symptom? @ -peripheral vascular disease, chronic left lower extremity wound, paresthesias Acute, or Chronic, or Acute on Chronic? @ -Acute Uncomplicated (without systemic symptoms) or Complicated (systemic symptoms)? @ -uncomplicated Side effects of treatment? @ -No Exacerbation, Progression, or Severe Exacerbation? @ -No Poses a threat to life or bodily function? How? (Chest pain, USA, NC, pneumonia, PE, COPD, DKA, ARF, appy, cholecystitis, CVA, Diverticulitis, Homicidal, Suicidal, threat to staff... and all critical care pts) @ -No - Lab Data Result diagrams: 01/18/24 16:58 01/18/24 16:58 Lab Results 01/18/24 01/18/24 01/18/24 Range/Units 16:58 16:58 16:58 WBC 7.5 (3.8-10.6) k/uL RBC 4.69 (4.30-5.90) m/uL Hgb 13.5 (13.0-17.5) gm/dL Hct 42.0 (39.0-53.0) % MCV 89.5 (80.0-100.0) fL MCH 28.9 (25.0-35.0) pg MCHC 32.2 (31.0-37.0) g/dL RDW 14.5 (11.5-15.5) % Plt Count 248 (150-450) k/uL MPV 8.1 Neutrophils % 64 % Lymphocytes % 26 % Monocytes % 5 % Eosinophils % 3 % Basophils % 1 % Neutrophils # 4.8 (1.3-7.7) k/uL Lymphocytes # 1.9 (1.0-4.8) k/uL Monocytes # 0.4 (0-1.0) k/uL Eosinophils # 0.2 (0-0.7) k/uL Basophils # 0.1 (0-0.2) k/uL Sodium 142 (137-145) mmol/L Potassium 4.7 (3.5-5.1) mmol/L Chloride 108 H (98-107) mmol/L Carbon Dioxide 27 (22-30) mmol/L Anion Gap 7 mmol/L BUN 25 H (9-20) mg/dL Creatinine 1.21 (0.66-1.25) mg/dL Est GFR (CKD-EPI)AfAm 70 (>60 ml/min/1.73 sqM) Est GFR (CKD-EPI)NonAf 61 (>60 ml/min/1.73 sqM) Glucose 94 (74-99) mg/dL Plasma Lactic Acid Mike 1.3 (0.7-2.0) mmol/L Calcium 9.0 (8.4-10.2) mg/dL Total Bilirubin 0.3 (0.2-1.3) mg/dL AST 21 (17-59) U/L ALT 18 (4-49) U/L Alkaline Phosphatase 86 (38-126) U/L Total Protein 7.3 (6.3-8.2) g/dL Albumin 3.9 (3.5-5.0) g/dL Disposition Clinical Impression: Peripheral vascular disease, Open wound of left ankle Narrative: Please return to the Emergency Department if symptoms worsen or any other concerns. Complete antibiotics as prescribed by your vascular specialist. Recommend follow-up with vascular within the next week for further evaluation. Disposition: HOME SELF-CARE Condition: Good Instructions (If sedation given, give patient instructions): Peripheral Vascular Disease (ED) Is patient prescribed a controlled substance at d/c from ED?: No Referrals: [facility],Clinic [Primary Care Provider] - 1-2 days Time of Disposition: 17:51
[2024-01-18 15:38] VITALS: BP 98/67; PULSE 82; RESP 18
--- NOTE | 2024-01-18 15:50 | XR ---
Left ankle HISTORY: Pain and swelling. COMPARISON: None. TECHNIQUE: 3 views left ankle were obtained. FINDINGS: There is diffuse osteopenia. There is no fracture, dislocation or focal intraosseous abnormality. The ankle mortise is intact. There is mild/moderate soft tissue swelling medially. There is diffuse arteriovascular calcification. IMPRESSION: 1. Diffuse osteopenia. 2. Mild to moderate soft tissue swelling over the medial ankle. 3. No acute trauma with no fracture or dislocation.
--- NOTE | 2024-01-18 15:52 | XR ---
Right foot HISTORY: Wound on the first digit. COMPARISON: None TECHNIQUE: 3 views right foot were obtained. FINDINGS: There is no fracture, dislocation, or intra-articular soft tissue abnormality. There is no cortical d isruption or periosteal reaction. There is diffuse arteriovascular calcification. IMPRESSION: No osseous or intra-articular abnormality. Diffuse arteriovascular calcification.
[2024-01-18] MEDS: KETOROLAC 15 MG/ML 1 ML VIAL IVP STA (17:04)
[2024-01-18 17:21] LABS: Basophils # (A) 0.1 k/uL (0-0.2); Basophils % (A) 1 %; Eosinophils # (A) 0.2 k/uL (0-0.7); Eosinophils % (A) 3 %; HGB 13.5 gm/dL (13.0-17.5); Lymphocytes # (A) 1.9 k/uL (1.0-4.8); Lymphocytes % (A) 26 %; MCH 28.9 pg (25.0-35.0); MCHC 32.2 g/dL (31.0-37.0); MCV 89.5 fL (80.0-100.0); Mean Platelet Volume 8.1; Monocytes # (A) 0.4 k/uL (0-1.0); Monocytes % (A) 5 %; Neutrophils # (A) 4.8 k/uL (1.3-7.7); Neutrophils % (A) 64 %; Platelet Count 248 k/uL (150-450); RBC 4.69 m/uL (4.30-5.90); RDW 14.5 % (11.5-15.5); WBC 7.5 k/uL (3.8-10.6)
[2024-01-18 17:39] LABS: ALT 18 U/L (4-49); AST 21 U/L (17-59); African American GFR (CKD) 70 (>60 ml/min/1.73 sqM); Albumin 3.9 g/dL (3.5-5.0); Alkaline Phosphatase 86 U/L (38-126); Anion Gap 7 mmol/L; Blood Urea Nitrogen 25 mg/dL (9-20); Carbon Dioxide 27 mmol/L (22-30); Chloride 108 mmol/L (98-107); Glucose 94 mg/dL (74-99); Non-African American GFR(CKD) 61 (>60 ml/min/1.73 sqM); Potassium 4.7 mmol/L (3.5-5.1); Sodium 142 mmol/L (137-145); Total Bilirubin 0.3 mg/dL (0.2-1.3); Total Protein 7.3 g/dL (6.3-8.2)
[2024-01-18 18:14] VITALS: TEMP 98.8
== END 2024-01-18 18:25 | disposition home or self-care (01) ==
LOC: EC 14:21
DX: S91.002A Unspecified open wound, left ankle, initial encounter (principal); I73.9 Peripheral vascular disease, unspecified; F12.90 Cannabis use, unspecified, uncomplicated; Z87.891 Personal history of nicotine dependence; X58.XXXA Exposure to other specified factors, initial encounter
CPT/HCPCS: 36415; 80053; 83605; 85025; 87070; 87205; 87075; 73610; 73630; 99283; 96374; J1885

== ENCOUNTER 2024-01-22 10:23 | Day surgery (SDC) | payer OTHER ==
[~2024-01-22 10:23] MED LIST changes: +ALPRAZolam 0.25 MG TAB PO PRN; +ALPRAZolam 0.5 MG TAB PO PRN; +ASPIRIN 325 MG TAB PO PRN; -DEXAMETHASONE SOD PHOSPHATE 4 MG/ML 1 ML VIAL IV ONE; +EMPTY BAG 1 BAG with SODIUM CHLORIDE 0.9% 1,000 ML IV SCH; +HEPARIN SODIUM,PORCINE (1 ML) 2,500 UNIT in SODIUM CHLORIDE 0.9% 250 ML IRRIGATION PRN; +HEPARIN SODIUM,PORCINE 10,000 UNIT in SODIUM CHLORIDE 0.9% 1,000 ML IRRIGATION PRN; -HYDROmorphone 0.5 MG/0.5 ML SYRINGE IVP PRN; -LIDOCAINE 1% (10MG/ML) FOR IV START INTRADERMA PRN; -MIDAZOLAM 2 MG/2 ML VIAL IV PRN; -NITROGLYCERIN-D5W PMX 50 MG in DEXTROSE/WATER 1 250ML.BAG IV SCH; -ONDANSETRON 4 MG/2 ML VIAL IVP ONE; +ZOLPIDEM 5 MG TAB PO PRN
[2024-01-22] MEDS: SODIUM CHLORIDE 0.9% 1,000 ML IV ONE (11:03)
[2024-01-22 11:29] LABS: Glucose,Whole Blood 129 mg/dL (70-110)
[2024-01-22 12:09] VITALS: RESP 16; TEMP 98.2
[2024-01-22] MEDS: MIDAZOLAM 2 MG/2 ML VIAL IVP ONE ×2 (12:13→12:34)
[2024-01-22] MEDS: fentaNYL (PF) 50 MCG/1 ML VIAL IVP ONE ×2 (12:14→12:34)
[2024-01-22] MEDS: LIDOCAINE 1% INJ 10MG/ML (20 ML MDV) SQ ONE (12:17)
[2024-01-22] MEDS: IOPAMIDOL-370 100ML BTL INTRATHECA ONE (12:41)
--- NOTE | 2024-01-22 13:13 | IR ---
EXAMINATION TYPE: IR angio abdominal w runoff Intraoperative/procedural fluoroscopic services were pr ovided. CLINICAL INDICATION:Male, 68 years old with history of right great toe pain. 2.5min fluoro, 28.389Gyc m2; , [facility]IN [facility] Total fluoroscopy time is 2.5 min. DAP: 20 839 Gycm2 Please see the operative/procedural note for further details.
--- NOTE | 2024-01-22 13:21 | P.OP ---
Date of Procedure: 01/22/24 Description of Procedure: preoperative diagnosis: Pk 5 peripheral arterial disease bilateral lower extremity Postoperative diagnosis: Same Procedure: Ultrasound-guided left radial artery access Placement of catheter in infrarenal abdominal aorta, selective second order, from radial approach Aortogram with bilateral lower extremity runoffs Moderate conscious sedation with personal monitoring certified RN administration and personal hemodynamic monitoring for 21 minutes Surgeon: Maggi Velez D.O. EBL: Less than 5 cc IV fluids: See records Urine output: Not measured Drains: None Complications: None immediately apparent Condition: Stable to recovery Operative indication and findings: Patient is 68 a-year-old with severe peripheral vascular disease and wounds. On workup and evaluation was found to have abnormal ABIs prompting recommendations for an angiogram. Risks and benefits including but not limited to bleeding, infection, injury to the vessel, stroke, cardiopulmonary risks and ischemic changes to the extremities were discussed. They seemingly understood this willing to proceed. Procedure in detail: Patient was taken to the special suite and placed in supine position. The left upper extremity was prepped and draped in usual sterile fashion. A preprocedural timeout was performed, all parties were in agreement. Using the ultrasound, the radial artery was identified. The skin overlying was anesthetized with 1% lidocaine plain. The artery was patent without significant calcific disease and a permanent image was stored. Under direct visualization, the artery was accessed and Seldinger technique was used to place a 5 slender sheath. Catheters and wires were then used to selectively place a catheter across the subclavian, into the aortic arch and then selectively in the descending thoracic aorta and down into the abdominal aorta. Aortogram was performed. Catheter was then advanced to the level of the iliac bifurcation. A bilateral lower extremity step-off was performed. After satisfactory images, catheters and wires were removed. The sheath was removed and a TR band was placed. Angiographic interpretation: The aorta very proximally was normal with smooth edges, beyond the mesenteric vessels there is evidence of diffuse full atherosclerotic disease. Visualized renal arteries appear patent on the right and with some disease on the left. Difficult to visualize the celiac or superior mesenteric artery. Significant large collateral vessels seen via lumbar and mesenteric. The distal aorta has evidence of severe disease with multiple large collaterals. On the right, there is complete occlusion of the common, internal and external iliac arteries. There is occlusion of the common femoral artery. There is occlusion of the superficial femoral artery. A brief visual of the profunda femoris via large collateral with significant disease. The superficial femoral artery remains occluded throughout the thigh. There is large collateral vessels noted down distally. There is a small area of reconstitution of the popliteal artery however no further flow distal to this. There are no named vessels visualized below the knee on the right. On the left the common femoral artery appears patent with diffuse disease. There appears to be significant disease of the external iliac artery, there is nonvisualization of the internal iliac artery. Again there are large multiple collateral vessels. There is occlusion at the distal external iliac artery and a previously visualized stent. The common femoral artery appears occluded. There is significant collaterals with evidence of minimal filling at the level of the profundus of the diminutive and small vessel with more robust appearing collaterals. The superficial femoral artery appears occluded. There is a bunch of large collaterals and the SFA continues to be occluded. There is a small visualized portion of the potentially could be the popliteal artery, but no named vessels beyond this Plan - Discharge Summary New Discharge Prescriptions: No Action traZODone HCL [Desyrel] 50 mg PO HS Ferrous Sulfate [Iron] 325 mg PO DAILY Tamsulosin [Flomax] 0.4 mg PO BID lisinopriL [Zestril] 10 mg PO BID #0 Cholecalciferol [Vitamin D3 (25 Mcg = 1000 Iu)] 25 mcg PO DAILY amLODIPine [Norvasc] 10 mg PO DAILY hydrALAZINE HCL [Apresoline] 50 mg PO TID #90 tab Isosorbide Mononitrate ER [Imdur] 60 mg PO DAILY #30 tab Furosemide [Lasix] 20 mg PO DAILY #30 tab Famotidine [Pepcid] 20 mg PO BID #60 tab Atorvastatin [Lipitor] 80 mg PO HS #90 tab Metoprolol Succinate (ER) [Toprol XL] 25 mg PO HS cilostazoL [Pletal] 100 mg PO BID Gabapentin [Neurontin] 400 mg PO TID Ticagrelor [Brilinta] 90 mg PO BID #60 tab Aspirin 81 mg PO DAILY DULoxetine HCL [Cymbalta] 60 mg PO DAILY Nitroglycerin Sl Tabs [Nitrostat] 0.4 mg SUBLINGUAL Q5M PRN #50 tab PRN Reason: Chest Pain Discharge Medication List Ferrous Sulfate [Iron] 325 mg PO DAILY 03/17/17 [History] traZODone HCL [Desyrel] 50 mg PO HS 03/17/17 [History] Gabapentin [Neurontin] 400 mg PO TID 05/03/21 [History] cilostazoL [Pletal] 100 mg PO BID 05/03/21 [History] Ticagrelor [Brilinta] 90 mg PO BID #60 tab 05/07/21 [Rx] Tamsulosin [Flomax] 0.4 mg PO BID 07/03/21 [History] lisinopriL [Zestril] 10 mg PO BID #0 07/06/21 [Rx] Aspirin 81 mg PO DAILY 10/22/21 [History] Cholecalciferol [Vitamin D3 (25 Mcg = 1000 Iu)] 25 mcg PO DAILY 10/22/21 [History] amLODIPine [Norvasc] 10 mg PO DAILY 10/22/21 [History] DULoxetine HCL [Cymbalta] 60 mg PO DAILY 04/04/22 [History] Atorvastatin [Lipitor] 80 mg PO HS #90 tab 04/09/22 [Rx] Famotidine [Pepcid] 20 mg PO BID #60 tab 04/09/22 [Rx] Furosemide [Lasix] 20 mg PO DAILY #30 tab 04/09/22 [Rx] Isosorbide Mononitrate ER [Imdur] 60 mg PO DAILY #30 tab 04/09/22 [Rx] Nitroglycerin Sl Tabs [Nitrostat] 0.4 mg SUBLINGUAL Q5M PRN #50 tab 04/09/22 [Rx] hydrALAZINE HCL [Apresoline] 50 mg PO TID #90 tab 04/09/22 [Rx] Metoprolol Succinate (ER) [Toprol XL] 25 mg PO HS 01/22/24 [History] Follow up Appointment(s)/Referral(s): Maggi Velez DO [STAFF PHYSICIAN] - 01/28/24 1:15 pm (KEEP PREVIOUS APPOINTMENT THAT WAS MADE WITH OFFICE. )
[2024-01-22 17:44] VITALS: BP 115/72; PULSE 65
== END 2024-01-22 17:05 | disposition home or self-care (01) ==
LOC: CATHCVL 10:23
PROVIDERS: ATTEND Surgery
DX: I73.9 Peripheral vascular disease, unspecified (principal); Z79.02 Long term (current) use of antithrombotics/antiplatelets; Z79.82 Long term (current) use of aspirin; Z79.899 Other long term (current) drug therapy
CPT/HCPCS: 36200; 75625; 75716; 99152; C1769 ×2; C1894; J2250; J2001; Q9967; J3010

== ENCOUNTER 2024-03-11 14:06 | Inpatient (IN) | payer OTHER, MEDICARE ==
[2024-03-11] MEDS ORDERED: VANCOMYCIN IV PER PHARMACY 1 EACH MISC MISCELLANE PRN (14:29)
--- NOTE | 2024-03-11 14:53 | ED ---
Extremity Problem HPI - General Chief complaint: Extremity Problem,Nontraumatic Stated complaint: Fall L ankle/leg injury Time Seen by Provider: 03/11/24 14:09 Source: patient, RN notes reviewed Mode of arrival: wheelchair Limitations: no limitations - History of Present Illness Initial comments: 68-year-old male presents emergency department chief complaint of increasing left leg pain, wound. Patient states he had a chronic wound but states it is excessively getting worse. He states he is unable to ambulate secondary to pain he had increasing swelling. Patient is followed by vascular. He denies any decrease in sensation to the left side. Patient states there is a foul order and increasing drainage from the wound. He is followed by wound center and states he was scheduled to follow-up tomorrow but states that is worse today. - Related Data Home Medications Medication Instructions Recorded Confirmed Ferrous Sulfate [Iron] 325 mg PO DAILY 03/17/17 01/22/24 traZODone HCL [Desyrel] 50 mg PO HS 03/17/17 01/22/24 Gabapentin [Neurontin] 600 mg PO TID 05/03/21 01/22/24 Tamsulosin [Flomax] 0.4 mg PO BID 07/03/21 01/22/24 Aspirin 81 mg PO DAILY 10/22/21 01/22/24 Cholecalciferol [Vitamin D3 (25 25 mcg PO DAILY 10/22/21 01/22/24 Mcg = 1000 Iu)] amLODIPine [Norvasc] 10 mg PO DAILY 10/22/21 01/22/24 DULoxetine HCL [Cymbalta] 60 mg PO DAILY 04/04/22 01/22/24 ARIPiprazole 5 mg PO DAILY 01/22/24 01/22/24 Metoprolol Succinate (ER) [Toprol 50 mg PO HS 01/22/24 01/22/24 XL] Previous Rx's Medication Instructions Recorded Ticagrelor [Brilinta] 90 mg PO BID #60 tab 05/07/21 lisinopriL [Zestril] 10 mg PO BID #0 07/06/21 Atorvastatin [Lipitor] 80 mg PO HS #90 tab 04/09/22 Famotidine [Pepcid] 20 mg PO BID #60 tab 04/09/22 Isosorbide Mononitrate ER [Imdur] 60 mg PO DAILY #30 tab 04/09/22 Nitroglycerin Sl Tabs [Nitrostat] 0.4 mg SUBLINGUAL Q5M PRN #50 tab 04/09/22 hydrALAZINE HCL [Apresoline] 50 mg PO TID #90 tab 04/09/22 Allergies Allergy/AdvReac Type Severity Reaction Status Date / Time No Known Allergies Allergy Verified 01/18/24 14:37 Review of Systems ROS Statement: Those systems with pertinent positive or pertinent negative responses have been documented in the HPI. ROS Other: All systems not noted in ROS Statement are negative. 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 bilateral renal artery stenting, balloon angioplasty of coronary artery, open heart surgery 02/2015-double bypass Past Anesthesia/Blood Transfusion Reactions: No Reported Reaction Past Psychological History: Anxiety, Depression Smoking Status: Former smoker Past Alcohol Use History: None Reported Past Drug Use History: Marijuana - Past Family History Brother(s) Family Medical History: Myocardial Infarction ([place]) Father Family Medical History: CVA/TIA, Myocardial Infarction ([place]) Additional Family Medical History / Comment(s): ANEURYSM Mother Family Medical History: CVA/TIA, Deep Vein Thrombosis (DVT), Myocardial Infarction ([place]) Sister(s) Family Medical History: Cancer, Myocardial Infarction ([place]) Additional Family Medical History / Comment(s): 3 sisters- [place] General Exam Limitations: no limitations General appearance: alert, in no apparent distress Head exam: Present: atraumatic, normocephalic, normal inspection Eye exam: Present: normal appearance, PERRL, EOMI. Absent: scleral icterus, conjunctival injection, periorbital swelling Respiratory exam: Present: normal lung sounds bilaterally. Absent: respiratory distress, wheezes, rales, rhonchi, stridor Cardiovascular Exam: Present: regular rate, normal rhythm, normal heart sounds. Absent: systolic murmur, diastolic murmur, rubs, gallop, clicks Extremities exam: Present: other (Large deep ulceration with purulent drainage to left lateral ankle there is diffuse swelling and increasing warmth pulses only found with Doppler very faint) Neurological exam: Present: alert Skin exam: Present: warm, dry, intact, normal color. Absent: rash Course Vital Signs 03/11/24 14:17 Temperature 98.8 F Pulse Rate 83 Respiratory 18 Rate Blood Pressure 109/64 O2 Sat by Pulse 97 Oximetry Medical Decision Making - Medical Decision Making Was pt. sent in by a medical professional or institution (, PA, ART MODEL, urgent care, hospital, or half-way...) When possible be specific @ -No Did you speak to anyone other than the patient for history (EMS, parent, family, police, friend...)? What history was obtained from this source @ -No Did you review nursing and triage notes (agree or disagree)? Why? @ -I reviewed and agree with nursing and triage notes Were old charts reviewed (outside hosp., previous admission, EMS record, old EKG, old radiological studies, urgent care reports/EKG's, half-way records)? Report findings @ -No old charts were reviewed Differential Diagnosis (chest pain, altered mental status, abdominal pain women, abdominal pain men, vaginal bleeding, weakness, fever, dyspnea, syncope, headache, dizziness, GI bleed, back pain, seizure, CVA, palpatations, mental health, musculoskeletal)? @ -Cellulitis, ulceration, osteomyelitis, venous insufficiency, arterial insufficiency EKG interpreted by me (3pts min.). @ -None X-rays interpreted by me (1pt min.). @ -X ray left ankle showing ulceration no osseous abnormality CT interpreted by me (1pt min.). @ -None done U/S interpreted by me (1pt. min.). @ -None done What testing was considered but not performed or refused? (CT, X-rays, U/S, labs)? Why? @ -None What meds were considered but not given or refused? Why? @ -None Did you discuss the management of the patient with other professionals (professionals i.e. DrLizbeth, PA, ART MODEL, lab, RT, psych nurse, social services technician, window cutter, teacher, records officer, child welfare caseworker)? Give summary @ -Discussed case with Dr. Abarca for admission regarding left ankle ulceration, cellulitis, Was smoking cessation discussed for >3mins.? @ -No Was critical care preformed (if so, how long)? @ -No Were there social determinants of health that impacted care today? How? (Homelessness, low income, unemployed, alcoholism, drug addiction, transportation, low edu. Level, literacy, decrease access to med. care, care home, rehab)? @ -No Was there de-escalation of care discussed even if they declined (Discuss DNR or withdrawal of care, Hospice)? DNR status @ -No What co-morbidities impacted this encounter? (DM, HTN, Smoking, COPD, CAD, Cancer, CVA, ARF, Chemo, Hep., AIDS, mental health diagnosis, sleep apnea, morbid obesity)? @ -Peripheral vascular disease Was patient admitted / discharged? Hospital course, mention meds given and route, prescriptions, significant lab abnormalities, going to OR and other pertinent info. @ -Admitted patient has a large ulceration worsening and unable to ambulate in the left leg patient has purulent drainage patient started on dual antibiotics, patient will have evaluation by vascular possible ID evaluation Undiagnosed new problem with uncertain prognosis? @ -No Drug Therapy requiring intensive monitoring for toxicity (Heparin, Nitro, Insulin, Cardizem)? @ -No Were any procedures done? @ -No Diagnosis/symptom? @ -Left ankle ulceration, cellulitis unable to ambulate Acute, or Chronic, or Acute on Chronic? @ -Acute Uncomplicated (without systemic symptoms) or Complicated (systemic symptoms)? @ -Complicated Side effects of treatment? @ -No Exacerbation, Progression, or Severe Exacerbation? @ -No Poses a threat to life or bodily function? How? (Chest pain, [place], [place], pneumonia, PE, COPD, DKA, ARF, appy, cholecystitis, CVA, Diverticulitis, Homicidal, Suicidal, threat to staff... and all critical care pts) @ -Yes left leg infection possible sepsis, may lead to endorgan failure - Lab Data Result diagrams: 03/11/24 14:40 03/11/24 14:40 Lab Results 03/11/24 03/11/24 03/11/24 Range/Units 14:40 14:40 14:40 WBC 10.2 (3.8-10.6) k/uL RBC 4.83 (4.30-5.90) m/uL Hgb 13.3 (13.0-17.5) gm/dL Hct 41.7 (39.0-53.0) % MCV 86.4 (80.0-100.0) fL MCH 27.5 (25.0-35.0) pg MCHC 31.8 (31.0-37.0) g/dL RDW 13.6 (11.5-15.5) % Plt Count 306 (150-450) k/uL MPV 7.7 Neutrophils % 83 % Lymphocytes % 11 % Monocytes % 3 % Eosinophils % 2 % Basophils % 0 % Neutrophils # 8.5 H (1.3-7.7) k/uL Lymphocytes # 1.1 (1.0-4.8) k/uL Monocytes # 0.3 (0-1.0) k/uL Eosinophils # 0.2 (0-0.7) k/uL Basophils # 0.0 (0-0.2) k/uL PT 12.0 (10.0-12.5) sec INR 1.1 (<1.2) APTT 27.2 (22.0-30.0) sec Sodium 138 (137-145) mmol/L Potassium 3.8 (3.5-5.1) mmol/L Chloride 105 (98-107) mmol/L Carbon Dioxide 26 (22-30) mmol/L Anion Gap 7 mmol/L BUN 17 (9-20) mg/dL Creatinine 1.05 (0.66-1.25) mg/dL Est GFR (CKD-EPI)AfAm 83 (>60 ml/min/1.73 sqM) Est GFR (CKD-EPI)NonAf 72 (>60 ml/min/1.73 sqM) Glucose 150 H (74-99) mg/dL Plasma Lactic Acid Mike (0.7-2.0) mmol/L Calcium 9.0 (8.4-10.2) mg/dL Total Bilirubin 0.6 (0.2-1.3) mg/dL AST 24 (17-59) U/L ALT 15 (4-49) U/L Alkaline Phosphatase 83 (38-126) U/L C-Reactive Protein 7.8 H (<1.0) mg/dL Total Protein 7.2 (6.3-8.2) g/dL Albumin 3.6 (3.5-5.0) g/dL 03/11/24 Range/Units 14:40 WBC (3.8-10.6) k/uL RBC (4.30-5.90) m/uL Hgb (13.0-17.5) gm/dL Hct (39.0-53.0) % MCV (80.0-100.0) fL MCH (25.0-35.0) pg MCHC (31.0-37.0) g/dL RDW (11.5-15.5) % Plt Count (150-450) k/uL MPV Neutrophils % % Lymphocytes % % Monocytes % % Eosinophils % % Basophils % % Neutrophils # (1.3-7.7) k/uL Lymphocytes # (1.0-4.8) k/uL Monocytes # (0-1.0) k/uL Eosinophils # (0-0.7) k/uL Basophils # (0-0.2) k/uL PT (10.0-12.5) sec INR (<1.2) APTT (22.0-30.0) sec Sodium (137-145) mmol/L Potassium (3.5-5.1) mmol/L Chloride (98-107) mmol/L Carbon Dioxide (22-30) mmol/L Anion Gap mmol/L BUN (9-20) mg/dL Creatinine (0.66-1.25) mg/dL Est GFR (CKD-EPI)AfAm (>60 ml/min/1.73 sqM) Est GFR (CKD-EPI)NonAf (>60 ml/min/1.73 sqM) Glucose (74-99) mg/dL Plasma Lactic Acid Mike 1.4 (0.7-2.0) mmol/L Calcium (8.4-10.2) mg/dL Total Bilirubin (0.2-1.3) mg/dL AST (17-59) U/L ALT (4-49) U/L Alkaline Phosphatase (38-126) U/L C-Reactive Protein (<1.0) mg/dL Total Protein (6.3-8.2) g/dL Albumin (3.5-5.0) g/dL Disposition Clinical Impression: PVD (peripheral vascular disease), Ulcer of left ankle, Left leg cellulitis, Unable to ambulate Disposition: ADMITTED IP TO THIS HOSP Condition: Fair Referrals: Ruchi Aj, PAC [Primary Care Provider] - 1-2 days Time of Disposition: 15:41
[2024-03-11 15:01] LABS: Basophils % (A) 0 %; Eosinophils # (A) 0.2 k/uL (0-0.7); Eosinophils % (A) 2 %; HCT 41.7 % (39.0-53.0); HGB 13.3 gm/dL (13.0-17.5); Lymphocytes # (A) 1.1 k/uL (1.0-4.8); Lymphocytes % (A) 11 %; MCH 27.5 pg (25.0-35.0); MCHC 31.8 g/dL (31.0-37.0); MCV 86.4 fL (80.0-100.0); Mean Platelet Volume 7.7; Monocytes # (A) 0.3 k/uL (0-1.0); Monocytes % (A) 3 %; Neutrophils # (A) 8.5 k/uL (1.3-7.7); Neutrophils % (A) 83 %; Platelet Count 306 k/uL (150-450); RBC 4.83 m/uL (4.30-5.90); RDW 13.6 % (11.5-15.5); WBC 10.2 k/uL (3.8-10.6)
[2024-03-11 15:10] LABS: INR 1.1 (<1.2); Partial Thromboplastin Time 27.2 sec (22.0-30.0)
[2024-03-11 15:13] LABS: ALT 15 U/L (4-49); AST 24 U/L (17-59); African American GFR (CKD) 83 (>60 ml/min/1.73 sqM); Albumin 3.6 g/dL (3.5-5.0); Alkaline Phosphatase 83 U/L (38-126); Anion Gap 7 mmol/L; Blood Urea Nitrogen 17 mg/dL (9-20); Carbon Dioxide 26 mmol/L (22-30); Chloride 105 mmol/L (98-107); Glucose 150 mg/dL (74-99); Non-African American GFR(CKD) 72 (>60 ml/min/1.73 sqM); Potassium 3.8 mmol/L (3.5-5.1); Sodium 138 mmol/L (137-145); Total Bilirubin 0.6 mg/dL (0.2-1.3); Total Protein 7.2 g/dL (6.3-8.2)
[2024-03-11] MEDS: PIPERACILLIN-TAZOBACTAM 3.375 GM in SODIUM CHLORIDE 0.9% 100 ML IVPB SCH (15:14)
[2024-03-11 15:25] LABS: C Reactive Protein 7.8 mg/dL (<1.0)
--- NOTE | 2024-03-11 15:29 | XR ---
EXAMINATION TYPE: XR ankle complete LT DATE OF EXAM: 03/11/2024 3:06 PM CLINICAL INDICATION:Male, 68 years old with history of infection; [facility] COMPARISON: 01/18/2024 TECHNIQUE: XR ankle complete LT; ankle is imaged in frontal, lateral and oblique projections. FINDINGS: Visible wound over the lateral aspect of the ankle no osseous erosion at this time. Diffuse soft tiss ue swelling throughout the foot and ankle. There is no evidence of acute osseous pathology. No evidence of subluxation or dislocation. Kager's fat pad is intact. No radiopaque foreign bodies are identified. Calcaneal Achilles enthesophyte. Calc aneal plantar spurring is present. Multifocal degeneration changes throughout the joints of the foot with osteophyte formation and joint space narrowing. IMPRESSION: 1. Wound near the lateral malleolus without osseous erosion. No evidence of acute fracture. 2. Subcutaneous swelling around the flat and ankle. Correlate for cellulitis given history of infecti on..
[2024-03-11] MEDS ORDERED: NALOXONE 0.4 MG/ML 1 ML VIAL IV PRN (15:41)
[2024-03-11] MEDS ORDERED: ONDANSETRON 4 MG/2 ML VIAL IVP PRN (15:41)
--- NOTE | 2024-03-11 16:10 | P.HPIM ---
History of Present Illness H&P Date: 03/11/24 Chief Complaint: Left foot pain This is a [id number] male who reported to the hospital with increased pain in his left lower extremity. He has chronic left foot wound and follows up in the wound care clinic, he has, noticed some creasing pain in his left lower extremity associated with some discharge. He recently completed a course of oral antibiotics. He denies subjective fever or chills, no chest pain abdominal pain no hematuria dysuria hematemesis or hematochezia.Hematemesis or hematochezia. Describes the pain as sharp nonradiating. . Review of Systems 10 systems reviewed, pertinent positive and negative findings as in HPI, no chest painan 10 systems reviewed, pertinent posd negative findings as in HPI, no chest pain, no abdominal pain., no abdominal pain. 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 bilateral renal artery stenting, balloon angioplasty of coronary artery, open heart surgery 02/2015-double bypass Past Anesthesia/Blood Transfusion Reactions: No Reported Reaction Past Psychological History: Anxiety, Depression Smoking Status: Former smoker Past Alcohol Use History: None Reported Past Drug Use History: Marijuana - Past Family History Brother(s) Family Medical History: Myocardial Infarction ([place]) Father Family Medical History: CVA/TIA, Myocardial Infarction ([place]) Additional Family Medical History / Comment(s): ANEURYSM Mother Family Medical History: CVA/TIA, Deep Vein Thrombosis (DVT), Myocardial Infarction ([place]) Sister(s) Family Medical History: Cancer, Myocardial Infarction ([place]) Additional Family Medical History / Comment(s): 3 sisters- [place] Medications and Allergies Home Medications Medication Instructions Recorded Confirmed Type Ferrous Sulfate [Iron] 325 mg PO DAILY 03/17/17 03/11/24 History Ticagrelor [Brilinta] 90 mg PO BID #60 tab 05/07/21 03/11/24 Rx Tamsulosin [Flomax] 0.4 mg PO BID 07/03/21 03/11/24 History lisinopriL [Zestril] 10 mg PO BID #0 07/06/21 03/11/24 Rx Cholecalciferol [Vitamin D3 (25 25 mcg PO DAILY 10/22/21 03/11/24 History Mcg = 1000 Iu)] DULoxetine HCL [Cymbalta] 120 mg PO DAILY 04/04/22 03/11/24 History Atorvastatin [Lipitor] 80 mg PO HS #90 tab 04/09/22 03/11/24 Rx Isosorbide Mononitrate ER [Imdur] 60 mg PO DAILY #30 tab 04/09/22 03/11/24 Rx hydrALAZINE HCL [Apresoline] 50 mg PO TID #90 tab 04/09/22 03/11/24 Rx ARIPiprazole 5 mg PO DAILY 01/22/24 03/11/24 History Metoprolol Succinate (ER) [Toprol 50 mg PO HS 01/22/24 03/11/24 History XL] Aspirin EC [Ecotrin Low Dose] 81 mg PO DAILY 03/11/24 03/11/24 History Cyanocobalamin (Vitamin B-12) 1,000 mcg PO DAILY 03/11/24 03/11/24 History [Vitamin B-12] Gabapentin [Neurontin] 600 mg PO TID 03/11/24 03/11/24 History Allergies Allergy/AdvReac Type Severity Reaction Status Date / Time No Known Allergies Allergy Verified 03/11/24 15:43 Physical Exam Vitals: Vital Signs Temp Pulse Resp BP Pulse Ox 03/11/24 14:17 98.8 F 83 18 109/64 97 Intake and Output 03/11/24 03/11/24 03/11/24 06:59 14:59 22:59 Other: Weight 72.575 kg Constitutional: No acute distress, conversant, pleasant Eyes: Anicteric sclerae, moist conjunctiva, no lid-lag, PERRLA ENMT: NC/AT,Oropharynx clear, no erythema, exudates Neck:Supple, FROM, no masses, or JVD, No carotid bruits; No thyromegaly Lungs: Clear to auscultation, Clear to percussion, Normal respiratory effort, no accessory muscle use Cardiovascular: Heart regular in rate and rhythm, No murmurs, gallops, or rubs no peripheral edema Abdominal: Soft Nontender, non distended, no guarding, no rebound or rigidity, Normoactive bowel sounds No hepatomegaly, No splenomegaly, No palpable mass No abdominal wall hernia noted Skin: Normal temperature, tone, texture, turgor, No induration No subcutaneous nodules, No rash, lesions, No ulcers Extremities:No digital cyanosis No clubbing, Pedal pulses intact and symmetrical Radial pulses intact and symmetrical Normal gait and station, No calf tenderness, left foot chronic wound/ulcer Psychiatric: Alert and oriented to person, place and time, Appropriate affect Intact judgement Neuro: Muscles Strength 5/5 in all 4 extremities, Sensation to light touch grossly present throughout, Cranial nerves II-XII grossly intact. No focal sensory deficits Results CBC & Chem 7: 03/11/24 14:40 03/11/24 14:40 Labs: Abnormal Lab Results - Last 24 Hours (Table) 03/11/24 03/11/24 Range/Units 14:40 14:40 Neutrophils # 8.5 H (1.3-7.7) k/uL Glucose 150 H (74-99) mg/dL C-Reactive Protein 7.8 H (<1.0) mg/dL Assessment and Plan Plan: Assessment and plan: 1.Assessment and plan: 1. Peripheral vascular disease with chronic left foot wound/cellulitis: Follows up with podiatry as an outpatient and wound care Start antibiotics withStart antibiotics with vancomycin and Zosyn, infectious disease consultation. Podiatry consultation. Wound care consultation. Pain control as indicated. 2. BPH: Continue Flomax 3. Coronary artery disease: Continue patient medications 4. Hyperlipidemia: Continue statin Admit inpatient telemetry
[2024-03-11] MEDS: SODIUM CHLORIDE 0.9% 1,000 ML IV SCH (16:19)
[2024-03-11] MEDS: VANCOMYCIN 1,250 MG in SODIUM CHLORIDE 0.9% 250 ML IVPB SCH (16:19)
[2024-03-11] MEDS: HYDROcodone/APAP 5-325MG 1 EACH TAB PO PRN (18:36)
[2024-03-11] MEDS: lisinopriL 10 MG TAB PO SCH (21:16)
[2024-03-11] MEDS: GABAPENTIN 300 MG CAP PO SCH (21:16)
[2024-03-11] MEDS: ATORVASTATIN 80 MG TAB PO SCH (21:16)
[2024-03-11] MEDS: TICAGRELOR 90 MG TAB PO SCH (21:16)
[2024-03-11] MEDS: hydrALAZINE HCL 50 MG TAB PO SCH (21:16)
[2024-03-11] MEDS: METOPROLOL SUCCINATE (ER) 50 MG TAB.ER.24H PO SCH (21:16)
[2024-03-11] MEDS: TAMSULOSIN 0.4 MG CAP.ER.24H PO SCH (21:16)
[2024-03-11] MEDS: MELATONIN 5 MG TABLET PO STA (23:21)
[2024-03-12 07:57] LABS: Erythrocyte Sedimentation Rate 73 mm/Hr (0-20)
[2024-03-12 09:06] LABS: ALT 12 U/L (10-49); AST 21 U/L (14-35); Albumin 3.4 g/dL (3.8-4.9); Alkaline Phosphatase 86 U/L (41-126); BUN/Creat Ratio 14.08 Ratio (12.00-20.00); Blood Urea Nitrogen 16.9 mg/dL (9.0-27.0); Calcium 8.9 mg/dL (8.7-10.3); Carbon Dioxide 24.3 mmol/L (21.6-31.8); Chloride 103 mmol/L (96-109); Globulin 3.4 g/dL (1.6-3.3); Glucose 113 mg/dL (70-110); Potassium 4.2 mmol/L (3.5-5.5); Sodium 138 mmol/L (135-145); Total Bilirubin 0.4 mg/dL (0.3-1.2); Total Protein 6.8 g/dL (6.2-8.2)
[2024-03-12] MEDS: ARIPiprazole 5 MG TAB PO SCH (09:10)
[2024-03-12] MEDS: ISOSORBIDE MONONITRATE ER 60 MG TAB.ER.24H PO SCH (09:10)
[2024-03-12] MEDS: ASPIRIN 81 MG PO SCH (09:10)
[2024-03-12] MEDS: DULoxetine HCL 60 MG CAPSULE.DR PO SCH (09:10)
--- NOTE | 2024-03-12 11:44 | P.PN ---
Subjective Progress Note Date: 03/12/24 Feels okay, no chest pain no abdominal pain no nausea no vomiting no dizziness. Remains afebrile. Objective - Vital Signs Vital signs: Vital Signs Temp 98.0 F 03/12/24 07:00 Pulse 85 03/12/24 07:00 Resp 16 03/12/24 07:00 BP 130/82 03/12/24 07:00 Pulse Ox 100 03/12/24 07:00 FiO2 Intake & Output 03/11/24 03/12/24 03/12/24 18:59 06:59 18:59 Weight 72.575 kg Other: # Voids 1 - Exam Constitutional: No acute distress, conversant, pleasant Eyes: Anicteric sclerae, moist conjunctiva, no lid-lag, PERRLA ENMT: NC/AT,Oropharynx clear, no erythema, exudates Neck:Supple, FROM, no masses, or JVD, No carotid bruits; No thyromegaly Lungs: Clear to auscultation, Clear to percussion, Normal respiratory effort, no accessory muscle use Cardiovascular: Heart regular in rate and rhythm, No murmurs, gallops, or rubs no peripheral edema Abdominal: Soft Nontender, nom distended, no guarding, no rebound or rigidity, Normoactive bowel sounds No hepatomegaly, No splenomegaly, No palpable mass No abdominal wall hernia noted Skin: Normal temperature, tone, texture, turgor, No induration No subcutaneous nodules, No rash, lesions, No ulcers Extremities:No digital cyanosis No clubbing, Pedal pulses intact and symmetrical Radial pulses intact and symmetrical Normal gait and station, No calf tenderness, left foot chronic wound/ulcer Psychiatric: Alert and oriented to person, place and time, Appropriate affect Intact judgement Neuro: Muscles Strength 5/5 in all 4 extremities, Sensation to light touch grossly present throughout, Cranial nerves II-XII grossly intact. No focal sensory deficits - Labs CBC & Chem 7: 03/11/24 14:40 03/12/24 06:08 Labs: Abnormal Lab Results - Last 24 Hours (Table) 03/11/24 03/11/24 03/12/24 Range/Units 14:40 14:40 06:08 Neutrophils # 8.5 H (1.3-7.7) k/uL ESR 73 H (0-20) mm/Hr Glucose 150 H 113 H (74-99) mg/dL C-Reactive Protein 7.8 H (<1.0) mg/dL Albumin 3.4 L (3.8-4.9) g/dL Globulin 3.4 H (1.6-3.3) g/dL Albumin/Globulin Ratio 1.00 L (1.60-3.17) Ratio Assessment and Plan Plan: Assessment and plan: 1.Assessment and plan: 1. Peripheral vascular disease with chronic left foot wound/cellulitis: Follows up with podiatry as an outpatient and wound care Start antibiotics with Started antibiotics with vancomycin and Zosyn, infectious disease consultation.Continue current management. Podiatry consultation. Wound care consultation. Pain control as indicated. 2. BPH: Continue Flomax 3. Coronary artery disease: Continue patient medications 4. Hyperlipidemia: Continue statin Disposition: Pending clinicalProgression
[2024-03-12 16:36] LABS: Basophils # (A) 0.05 X 10*3/uL (0.00-0.10); Basophils % (A) 0.6 %; Eosinophils # (A) 0.11 X 10*3/uL (0.04-0.35); Eosinophils % (A) 1.3 %; HCT 38.7 % (39.6-50.0); HGB 12.7 g/dL (13.0-17.0); Lymphocytes # (A) 1.06 X 10*3/uL (0.90-5.00); Lymphocytes % (A) 12.7 %; MCH 27.5 pg (27.0-32.0); MCHC 32.8 g/dL (32.0-37.0); MCV 83.9 FL (80.0-97.0); Mean Platelet Volume 10.8 FL (9.5-12.2); Monocytes # (A) 0.48 X 10*3/uL (0.20-1.00); Monocytes % (A) 5.7 %; NRBC Per 100 WBC 0 X 10*3/uL (0.00-0.01); Neutrophils # (A) 6.64 X 10*3/uL (1.80-7.70); Neutrophils % (A) 79.5 %; Platelet Count 337 X 10*3/uL (140-440); RBC 4.61 X 10*6/uL (4.40-5.60); RDW 14.2 % (11.5-14.5); WBC 8.36 X 10*3/uL (4.50-10.00)
--- NOTE | 2024-03-12 18:35 | P.GSCN ---
History of Present Illness Consult date: 03/12/24 Reason for Consult: left foot wound History of present illness: 68-year male who has a history of chronic left foot wound on the lateral aspect presented for worsening wound and pain. He states follows up in the wound care clinic over the last several months but hasn't improved. He also has had previous balloon angioplasty to the legs due to blood flow issues. He has had some increased drainage and the wound has become black. He also complains of increased swelling. 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 bilateral renal artery stenting, balloon angioplasty of coronary artery, open heart surgery 02/2015-double bypass Past Anesthesia/Blood Transfusion Reactions: No Reported Reaction Past Psychological History: Anxiety, Depression Smoking Status: Former smoker Past Alcohol Use History: None Reported Additional Past Alcohol Use History / Comment(s): quit smoking 30 yrs ago, smoked for 20 yrs Past Drug Use History: Marijuana Additional Drug Use History / Comment(s): daily - Past Family History Brother(s) Family Medical History: Myocardial Infarction ([place]) Father Family Medical History: CVA/TIA, Myocardial Infarction ([place]) Additional Family Medical History / Comment(s): ANEURYSM Mother Family Medical History: CVA/TIA, Deep Vein Thrombosis (DVT), Myocardial Infarction ([place]) Sister(s) Family Medical History: Cancer, Myocardial Infarction ([place]) Additional Family Medical History / Comment(s): 3 sisters- [place] Medications and Allergies Home Medications Medication Instructions Recorded Confirmed Type Ferrous Sulfate [Iron] 325 mg PO DAILY 03/17/17 03/11/24 History Ticagrelor [Brilinta] 90 mg PO BID #60 tab 05/07/21 03/11/24 Rx Tamsulosin [Flomax] 0.4 mg PO BID 07/03/21 03/11/24 History lisinopriL [Zestril] 10 mg PO BID #0 07/06/21 03/11/24 Rx Cholecalciferol [Vitamin D3 (25 25 mcg PO DAILY 10/22/21 03/11/24 History Mcg = 1000 Iu)] DULoxetine HCL [Cymbalta] 120 mg PO DAILY 04/04/22 03/11/24 History Atorvastatin [Lipitor] 80 mg PO HS #90 tab 04/09/22 03/11/24 Rx Isosorbide Mononitrate ER [Imdur] 60 mg PO DAILY #30 tab 04/09/22 03/11/24 Rx hydrALAZINE HCL [Apresoline] 50 mg PO TID #90 tab 04/09/22 03/11/24 Rx ARIPiprazole 5 mg PO DAILY 01/22/24 03/11/24 History Metoprolol Succinate (ER) [Toprol 50 mg PO HS 01/22/24 03/11/24 History XL] Aspirin EC [Ecotrin Low Dose] 81 mg PO DAILY 03/11/24 03/11/24 History Cyanocobalamin (Vitamin B-12) 1,000 mcg PO DAILY 03/11/24 03/11/24 History [Vitamin B-12] Gabapentin [Neurontin] 600 mg PO TID 03/11/24 03/11/24 History Allergies Allergy/AdvReac Type Severity Reaction Status Date / Time No Known Allergies Allergy Verified 03/11/24 15:43 Surgical - Exam Vital Signs Temp Pulse Resp BP Pulse Ox 98.8 F 83 18 109/64 97 03/11/24 14:17 03/11/24 14:17 03/11/24 14:03/11/24 14:03/11/24 14:17 - General well developed, well nourished, no distress - Eyes PERRL, normal ocular movement - ENT normal pinna, normal nares - Respiratory normal expansion - Cardiovascular Rhythm: regular - Abdomen Abdomen: soft, non tender - Psychiatric oriented to time, oriented to person, oriented to place, speech is normal left lateral lower leg wound with fluctuance and purulent drainage. Palpable DP pulses bilaterally 2+ pitting edema Results - Labs 03/12/24 06:08 03/12/24 06:08 Abnormal Lab Results - Last 24 Hours (Table) 03/11/24 03/12/24 03/12/24 Range/Units 14:40 06:08 06:08 Hgb 12.7 L (13.0-17.0) g/dL Hct 38.7 L (39.6-50.0) % ESR 73 H (0-20) mm/Hr Glucose 113 H (70-110) mg/dL Albumin 3.4 L (3.8-4.9) g/dL Globulin 3.4 H (1.6-3.3) g/dL Albumin/Globulin Ratio 1.00 L (1.60-3.17) Ratio Diabetes panel 03/12/24 Range/Units 06:08 Sodium 138 (135-145) mmol/L Potassium 4.2 (3.5-5.5) mmol/L Chloride 103 (96-109) mmol/L Carbon Dioxide 24.3 (21.6-31.8) mmol/L BUN 16.9 (9.0-27.0) mg/dL Creatinine 1.2 (0.6-1.5) mg/dL Glucose 113 H (70-110) mg/dL Calcium 8.9 (8.7-10.3) mg/dL AST 21 (14-35) U/L ALT 12 (10-49) U/L Alkaline Phosphatase 86 (41-126) U/L Total Protein 6.8 (6.2-8.2) g/dL Albumin 3.4 L (3.8-4.9) g/dL Calcium panel 03/12/24 Range/Units 06:08 Calcium 8.9 (8.7-10.3) mg/dL Albumin 3.4 L (3.8-4.9) g/dL Pituitary panel 03/12/24 Range/Units 06:08 Sodium 138 (135-145) mmol/L Potassium 4.2 (3.5-5.5) mmol/L Chloride 103 (96-109) mmol/L Carbon Dioxide 24.3 (21.6-31.8) mmol/L BUN 16.9 (9.0-27.0) mg/dL Creatinine 1.2 (0.6-1.5) mg/dL Glucose 113 H (70-110) mg/dL Calcium 8.9 (8.7-10.3) mg/dL Adrenal panel 03/12/24 Range/Units 06:08 Sodium 138 (135-145) mmol/L Potassium 4.2 (3.5-5.5) mmol/L Chloride 103 (96-109) mmol/L Carbon Dioxide 24.3 (21.6-31.8) mmol/L BUN 16.9 (9.0-27.0) mg/dL Creatinine 1.2 (0.6-1.5) mg/dL Glucose 113 H (70-110) mg/dL Calcium 8.9 (8.7-10.3) mg/dL Total Bilirubin 0.4 (0.3-1.2) mg/dL AST 21 (14-35) U/L ALT 12 (10-49) U/L Alkaline Phosphatase 86 (41-126) U/L Total Protein 6.8 (6.2-8.2) g/dL Albumin 3.4 L (3.8-4.9) g/dL Assessment and Plan Assessment: left lateral malleolus chronc wound Peripheral arterial disease DM Plan: Recommend excisional debridement and washout in the OR Patient agreeable, will schedule for tomorrow. Continue antibiotics, elevate lower extremities. Thank you for the consultation.
--- NOTE | 2024-03-12 22:44 | P.CONS ---
History of Present Illness - Reason for Consult Consult date: 03/12/24 Foot cellulitis, wound Requesting physician: Dany Judge - Chief Complaint Left foot nonhealing wound and pain x weeks - History of Present Illness Patient is a 68-year-old -[place] male with a past medical history significant for coronary disease CVA TIA diabetes mellitus hypertension hyperlipidemia memory impairment, apparently the patient has been dealing with the left lateral malleolar area wound that has been there for more than a month or so patient are very clear about how it started when she started the small morning has progressed to get worse and the patient to follow at [facility] care [facility] patient also has been treated with a course of antibiotic by mouth however the patient not sure about the name of those antibiotics patient is presenting to the hospital with worsening pain swelling and redness along with drainage to the left lateral malleolar wound area with associated swelling redness of the left foot patient describes the pain to be sharp moderate to severe intensity without radiation with associated swelling redness and some foul-smelling drainage patient did have some chills but denies high-grade fever on presentation to the hospital the patient was afebrile and no fever have recorded subsequently patient was not tachycardic hypotensive or hypoxic patient did have a white count of 10.2 creatinine is 1.05 electrolyte has been normal liver enzymes are normal patient did have a ankle x-ray wound near the lateral malleolus without bony erosion or acute fracture subcutaneous swelling patient has been started on broad-spectrum biotic in the form of vancomycin and Zosyn infectious disease was consulted for further management of antibiotic therapy review of the culture done recently in January 2024 he did grow E. coli and anaerobe gram-negative bacilli Review of Systems Positive point and negatives has been mentioned in the HPI, complete review of systems was performed and all other systems are negative Past Medical History Past Medical History: Coronary Artery Disease (CAD), Chest Pain / Angina, COPD, CVA/TIA, Diabetes Mellitus, Hyperlipidemia, Hypertension, Memory Impairment, Myocardial Infarction ([place]), Prostate Disorder, Sleep Apnea/CPAP/BIPAP, Vascular Disorder Additional Past Medical History / Comment(s): Peripheral vascular disease, renal artery stenosis with previous renal artery stenting, insomnia,NEUROPATHY, stroke 05/03/21-left side weakness, migraines, not using CPAP currently, diet control diabetic, 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 bilateral renal artery stenting, balloon angioplasty of coronary artery, open heart surgery 02/2015-double bypass Past Anesthesia/Blood Transfusion Reactions: No Reported Reaction Past Psychological History: Anxiety, Depression Smoking Status: Former smoker Past Alcohol Use History: None Reported Additional Past Alcohol Use History / Comment(s): quit smoking 30 yrs ago, smoked for 20 yrs Past Drug Use History: Marijuana Additional Drug Use History / Comment(s): daily - Past Family History Brother(s) Family Medical History: Myocardial Infarction ([place]) Father Family Medical History: CVA/TIA, Myocardial Infarction ([place]) Additional Family Medical History / Comment(s): ANEURYSM Mother Family Medical History: CVA/TIA, Deep Vein Thrombosis (DVT), Myocardial Infarction ([place]) Sister(s) Family Medical History: Cancer, Myocardial Infarction ([place]) Additional Family Medical History / Comment(s): 3 sisters- [place] Medications and Allergies Home Medications Medication Instructions Recorded Confirmed Type Ticagrelor [Brilinta] 90 mg PO BID #60 tab 05/07/21 03/11/24 Rx Tamsulosin [Flomax] 0.4 mg PO BID 07/03/21 03/11/24 History lisinopriL [Zestril] 10 mg PO BID #0 07/06/21 03/11/24 Rx Cholecalciferol [Vitamin D3 (25 25 mcg PO DAILY 10/22/21 03/11/24 History Mcg = 1000 Iu)] DULoxetine HCL [Cymbalta] 120 mg PO DAILY 04/04/22 03/11/24 History Atorvastatin [Lipitor] 80 mg PO HS #90 tab 04/09/22 03/11/24 Rx Isosorbide Mononitrate ER [Imdur] 60 mg PO DAILY #30 tab 04/09/22 03/11/24 Rx hydrALAZINE HCL [Apresoline] 50 mg PO TID #90 tab 04/09/22 03/11/24 Rx ARIPiprazole 5 mg PO DAILY 01/22/24 03/11/24 History Metoprolol Succinate (ER) [Toprol 50 mg PO HS 01/22/24 03/11/24 History XL] Aspirin EC [Ecotrin Low Dose] 81 mg PO DAILY 03/11/24 03/11/24 History Cyanocobalamin (Vitamin B-12) 1,000 mcg PO DAILY 03/11/24 03/11/24 History [Vitamin B-12] Gabapentin [Neurontin] 600 mg PO TID 03/11/24 03/11/24 History HYDROcodone/APAP 5-325MG [[place] 1 each PO Q4HR PRN #18 tab 03/15/24 Rx 5-325] cefTRIAXone [Rocephin] 2,000 mg IVP Q24HR #40 each 03/15/24 Rx Allergies Allergy/AdvReac Type Severity Reaction Status Date / Time No Known Allergies Allergy Verified 03/11/24 15:43 Physical Exam Vitals: Vital Signs Temp Pulse Pulse Resp BP BP BP 03/12/24 07:00 98.0 F 85 16 130/82 03/12/24 02:00 98.3 F 55 L 16 115/63 03/11/24 20:00 98.4 F 65 16 119/57 03/11/24 18:23 98.1 F 78 18 176/84 03/11/24 17:55 90 18 156/90 03/11/24 14:17 98.8 F 83 18 109/64 Pulse Ox 03/12/24 07:00 100 03/12/24 02:00 100 03/11/24 20:00 94 L 03/11/24 18:23 99 03/11/24 17:55 97 03/11/24 14:17 97 Intake and Output 03/11/24 03/12/24 03/12/24 22:59 06:59 14:59 Other: # Voids 2 1 Weight 72.575 kg GENERAL DESCRIPTION: Elderly male lying in bed, no distress. No tachypnea or accessory muscle of respiration use. HEENT: Shows Pallor , no scleral icterus. Oral mucous membrane is dry. No pharyngeal erythema or thrush NECK: Trachea central, no thyromegaly. LUNGS: Unlabored breathing. Clear to auscultation anteriorly. No wheeze or crackle. HEART: S1, S2, regular rate and rhythm. No loud murmur ABDOMEN: Soft, no tenderness , guarding or rigidity, no organomegaly EXTREMITIES: Left lateral malleolar area did have a deep wound with purulent drainage did have swelling and redness of the left foot which is tender to touch SKIN: No rash, no masses palpable. NEUROLOGICAL: The patient is awake, alert, oriented x3, mood and affect normal. Results CBC & Chem 7: 03/15/24 07:34 03/15/24 07:34 Labs: Abnormal Lab Results - Last 24 Hours (Table) 03/11/24 03/11/24 03/12/24 Range/Units 14:40 14:40 06:08 Neutrophils # 8.5 H (1.3-7.7) k/uL ESR 73 H (0-20) mm/Hr Glucose 150 H 113 H (74-99) mg/dL C-Reactive Protein 7.8 H (<1.0) mg/dL Albumin 3.4 L (3.8-4.9) g/dL Globulin 3.4 H (1.6-3.3) g/dL Albumin/Globulin Ratio 1.00 L (1.60-3.17) Ratio Assessment and Plan (1) Wound of left ankle Status: Acute Code(s): S91.002A - UNSPECIFIED OPEN WOUND, LEFT ANKLE, INITIAL ENCOUNTER SNOMED Code(s): 427114159 (2) Cellulitis of left foot Status: Acute Code(s): L03.116 - CELLULITIS OF LEFT LOWER LIMB SNOMED Code(s): 56986659988574355 Plan: 1- patient with the nonhealing wound to the left lateral malleoli area now presented to the hospital with a wound infection and secondary cellulitis x-ray did not show any bony changes last culture from the left lateral ankle area wound has been E. coli and gram-negative failing outpatient oral antibiotic therapy 2await vascular surgery evaluation for surgical debridement and deep culture 3we will continue patient on Zosyn keeping in mind his recent culture however discontinue vancomycin decrease risk of nephrotoxicity antibiotics will be adjusted further on the basis of new cultures We will follow on clinical condition and cultures to further adjust medication if needed Thank you for this consultation we will follow the patient along with you Dictation was produced using [employer] software. please excuse any grammatical, word or spelling errors. Time with Patient: Greater than 30
[2024-03-13] MEDS ORDERED: PHENYLEPHRINE-0.9% NACL SYG 1,000 MCG/10 ML SYRINGE ONE (07:50)
[2024-03-13] MEDS ORDERED: fentaNYL (PF) 50 MCG/ML 2 ML AMP ONE (07:50)
[2024-03-13] MEDS ORDERED: PROPOFOL 10 MG/ML 20 ML VIAL IV ONE (07:50)
[2024-03-13] MEDS ORDERED: LIDOCAINE 1% INJ 10MG/ML (20 ML MDV) ONE (07:50)
[2024-03-13] MEDS: LACTATED RINGERS 1,000 ML IV ONE (07:58)
--- NOTE | 2024-03-13 08:34 | P.OP ---
Date of Procedure: 03/13/24 Preoperative Diagnosis: chronic left lateral ankle wound Postoperative Diagnosis: Chronic left ankle wound with deep intra-joint abscess Procedure(s) Performed: Excisional debridement of left lateral ankle wound and washout of abscess Negative pressure dressing placement of the lateral left ankle wound Anesthesia: [facility] Surgeon: Nam Darnell Estimated Blood Loss (ml): 5 Pathology: other (deep wound cultures) Condition: stable Disposition: PACU Indications for Procedure: 68-year-old gentleman with chronic left lateral ankle wound with covering eschar and purulence presents to the operative suite for excisional debridement and drainage of infected wound. Operative Findings: Ischemic tissue throughout the subcutaneous tissues and deep abscess within the ankle joint Description of Procedure: After written and informed consent was obtained for the patient and all risk, benefits and complications were described the patient was brought to the operative suite and laid in a supine position. The area of the left leg was prepped and draped in usual sterile fashion after appropriate anesthetic was performed per the anesthesiologist. A timeout was performed normal fashion antibiotics were administered prior to surgery. Utilizing a scalpel excisional debridement was performed at the lateral ankle wound which extended down into the bone and joint space. All ischemic soft tissue was removed down to some bleeding tissues. The bone and joint were exposed and therefore no bleeding was noted at those areas. There was purulent drainage from the joint space which was cultured and washed out. Once all ischemic tissue was removed the area was copiously irrigated with saline solution and a wound VAC with negative pressure dressing was placed in normal fashion. Patient tolerated the procedure well and was sent to PACU for recovery.
[2024-03-13 08:43] LABS: Glucose,Whole Blood 156 mg/dL (70-110)
[2024-03-13] MEDS: HYDROmorphone 0.5 MG/0.5 ML SYRINGE IVP PRN (08:55)
[2024-03-13 09:19] LABS: Basophils # (A) 0.03 X 10*3/uL (0.00-0.10); Basophils % (A) 0.4 %; Eosinophils % (A) 1.4 %; HGB 12.1 g/dL (13.0-17.0); Lymphocytes # (A) 1.09 X 10*3/uL (0.90-5.00); Lymphocytes % (A) 15.2 %; MCH 27.2 pg (27.0-32.0); MCHC 32.7 g/dL (32.0-37.0); MCV 83.1 FL (80.0-97.0); Mean Platelet Volume 10.5 FL (9.5-12.2); Monocytes # (A) 0.55 X 10*3/uL (0.20-1.00); Monocytes % (A) 7.7 %; NRBC Per 100 WBC 0 X 10*3/uL (0.00-0.01); Neutrophils # (A) 5.37 X 10*3/uL (1.80-7.70); Platelet Count 297 X 10*3/uL (140-440); RBC 4.45 X 10*6/uL (4.40-5.60); RDW 13.7 % (11.5-14.5); WBC 7.16 X 10*3/uL (4.50-10.00)
[2024-03-13 09:29] LABS: BUN/Creat Ratio 12.64 Ratio (12.00-20.00); Blood Urea Nitrogen 13.9 mg/dL (9.0-27.0); Glucose 132 mg/dL (70-110)
[2024-03-13 09:30] LABS: ALT 11 U/L (10-49); AST 17 U/L (14-35); Albumin 3.2 g/dL (3.8-4.9); Albumin/Globulin Ratio 1.07 Ratio (1.60-3.17); Alkaline Phosphatase 79 U/L (41-126); Calcium 8.5 mg/dL (8.7-10.3); Carbon Dioxide 24.5 mmol/L (21.6-31.8); Chloride 105 mmol/L (96-109); Sodium 139 mmol/L (135-145); Total Bilirubin 0.3 mg/dL (0.3-1.2); Total Protein 6.2 g/dL (6.2-8.2)
--- NOTE | 2024-03-13 13:19 | P.PN ---
Subjective Progress Note Date: 03/13/24 Principal diagnosis: Reason for follow-up is left lateral malleolar wound and cellulitis Patient is a 68-year-old -Citizen Of [place] male with multiple comorbidities dealing with a nonhealing wound to the left lateral malleolar area failing outpatient oral antibiotic therapy presented to hospital with the nonhealing wound who worsening pain and swelling and redness diagnosed with a wound infection concerning for possible deeper infection. The patient is status post Excisional debridement of left lateral ankle wound and washout of abscess completed on 03/13/2024 On today's evaluation that is 03/13/2024, Patient is afebrile patient is currently on room air and denies having any shortness of breath, the patient denies any chest pain or cough, the patient denies any nausea vomiting did not have any abdominal pain and no diarrhea still complaining of pain to the left left ankle but no worsening. Patient white count 7.16 creatinine is 1.1 initial culture growing gram-negative blood culture so far pending Objective - Vital Signs Vital signs: Vital Signs Temp 98.7 F 03/13/24 08:45 Pulse 100 03/13/24 09:44 Resp 16 03/13/24 09:15 BP 118/60 03/13/24 09:15 Pulse Ox 100 03/13/24 09:15 FiO2 Intake & Output 03/12/24 03/13/24 03/13/24 18:59 06:59 18:59 Intake Total 340 600 Output Total 425 900 5 Balance -85 -900 595 Weight 72.575 kg Intake: IV 600 Oral 340 Output: Urine 425 900 Estimated Blood Loss 5 Other: Voiding Method Urinal # Voids 1 - Exam GENERAL DESCRIPTION: An elderly male lying in bed in no distress RESPIRATORY SYSTEM: Unlabored breathing , decreased breath sounds at bases HEART: S1 S2 regular rate and rhythm , ABDOMEN: Soft , no tenderness EXTREMITIES: Left lateral malleolus wound is covered with a wound VAC - Labs CBC & Chem 7: 03/13/24 05:51 03/13/24 05:51 Labs: Abnormal Lab Results - Last 24 Hours (Table) 03/12/24 03/13/24 03/13/24 Range/Units 06:08 05:51 05:51 Hgb 12.7 L 12.1 L (13.0-17.0) g/dL Hct 38.7 L 37.0 L (39.6-50.0) % Glucose 132 H (70-110) mg/dL POC Glucose (mg/dL) (70-110) mg/dL Calcium 8.5 L (8.7-10.3) mg/dL Albumin 3.2 L (3.8-4.9) g/dL Albumin/Globulin Ratio 1.07 L (1.60-3.17) Ratio 03/13/24 Range/Units 08:39 Hgb (13.0-17.0) g/dL Hct (39.6-50.0) % Glucose (70-110) mg/dL POC Glucose (mg/dL) 156 H (70-110) mg/dL Calcium (8.7-10.3) mg/dL Albumin (3.8-4.9) g/dL Albumin/Globulin Ratio (1.60-3.17) Ratio Microbiology - Last 24 Hours (Table) 03/11/24 14:40 Gram Stain - Preliminary Ankle - Left Wound Culture - Preliminary Gram Neg Bacilli Assessment and Plan (1) Wound of left ankle Current Visit: Yes Status: Acute Code(s): S91.002A - UNSPECIFIED OPEN WOUND, LEFT ANKLE, INITIAL ENCOUNTER SNOMED Code(s): 650959606 (2) Cellulitis of left foot Current Visit: Yes Status: Acute Code(s): L03.116 - CELLULITIS OF LEFT LOWER LIMB SNOMED Code(s): 23161304814903703 Plan: 1- patient with the nonhealing wound to the left lateral malar area now presented to the hospital with a wound infection and secondary cellulitis x-ray did not show any bony changes last culture from the left lateral ankle area wound has been E. coli and gram-negative failing outpatient oral antibiotic therapy 2patient is status post vascular surgery evaluation and surgical debridement and deep culture of the left lateral malar wound concerning for deep infection extending to the joint 3local culture currently growing gram-negative continue with the Zosyn will likely need a PICC line for outpatient IV antibiotics Dictation was produced using [employer] dictation software. please excuse any grammatical, word or spelling errors. Time with Patient: Greater than 30
--- NOTE | 2024-03-13 15:37 | P.PN ---
Subjective Progress Note Date: 03/13/24 Patient underwent debridement in the operating room today, his only complaint is some soreness of the left lower extremity, controlled with IV Dilaudid and Madelia along with gabapentin. Denies fevers, chills, nausea, vomiting. Gen: In NAD, non-toxic HEENT: normocephalic, atraumatic, hearing acuity is intant, mucous membranes moist CVS: perfusing all extremities well, no pitting edema, Respiratory: symmetric chest expansion, no accessory muscle use, GI: soft, NTTP, ND, : no suprapubic tenderness, no CVA tenderness MSK/Derm: no rashes, cyanosis Neuro: CN II-XII intact, no motor weakness, Psych: cooperative, euthymic mood, judgment and insight is intact Hospital course: 68-year-old male with medical history of diabetes, peripheral arterial disease presented for evaluation of cellulitis. He was seen in consultation with infectious disease and vascular surgery and was found to have infected wound warranting debridement in the operating room. He was treated with broad- spectrum antibiotics and taken to the operating room where he had washout and debridement. His wound culture was growing gram-negative rods. Assessment/plan: Left lower extremity cellulitis Peripheral vascular disease -Continue Zosyn -Follow-up wound culture to completion, currently growing gram-negative rods -Wound care consultation -Pain control -ID consultation is appreciated, they recommend PICC line for outpatient IV antibiotics BPH CAD Hyperlipidemia -Home medications reviewed and reconciled Patient is full code Objective - Vital Signs Vital signs: Vital Signs Temp 98.4 F 03/13/24 14:18 Pulse 83 03/13/24 14:18 Resp 16 03/13/24 09:15 BP 124/74 03/13/24 14:18 Pulse Ox 99 03/13/24 14:18 FiO2 Intake & Output 03/12/24 03/13/24 03/13/24 18:59 06:59 18:59 Intake Total 340 600 Output Total 425 900 705 Balance -85 -900 -105 Weight 72.575 kg Intake: IV 600 Oral 340 Output: Urine 425 900 700 Estimated Blood Loss 5 Other: Voiding Method Urinal # Voids 1 - Labs CBC & Chem 7: 03/13/24 05:51 03/13/24 05:51 Labs: Abnormal Lab Results - Last 24 Hours (Table) 0703/13/24 03/13/24 Range/Units 06:08 05:51 05:51 Hgb 12.7 L 12.1 L (13.0-17.0) g/dL Hct 38.7 L 37.0 L (39.6-50.0) % Glucose 132 H (70-110) mg/dL POC Glucose (mg/dL) (70-110) mg/dL Calcium 8.5 L (8.7-10.3) mg/dL Albumin 3.2 L (3.8-4.9) g/dL Albumin/Globulin Ratio 1.07 L (1.60-3.17) Ratio 03/13/24 Range/Units 08:39 Hgb (13.0-17.0) g/dL Hct (39.6-50.0) % Glucose (70-110) mg/dL POC Glucose (mg/dL) 156 H (70-110) mg/dL Calcium (8.7-10.3) mg/dL Albumin (3.8-4.9) g/dL Albumin/Globulin Ratio (1.60-3.17) Ratio Microbiology - Last 24 Hours (Table) 03/11/24 14:35 Blood Culture - Preliminary Blood 03/11/24 14:50 Blood Culture - Preliminary Blood 03/11/24 14:40 Gram Stain - Preliminary Ankle - Left Wound Culture - Preliminary Gram Neg Bacilli
[2024-03-13] MEDS: BUTALB/APAP/CAFF 50-325-40MG TAB PO STA (23:37)
[2024-03-13] MEDS: MELATONIN 3 MG TABLET PO SCH (23:37)
[2024-03-14 09:56] LABS: Basophils # (A) 0.04 X 10*3/uL (0.00-0.10); Basophils % (A) 0.4 %; Eosinophils # (A) 0.08 X 10*3/uL (0.04-0.35); Eosinophils % (A) 0.9 %; HCT 35.1 % (39.6-50.0); HGB 11.8 g/dL (13.0-17.0); Lymphocytes # (A) 1.01 X 10*3/uL (0.90-5.00); MCH 27.8 pg (27.0-32.0); MCHC 33.6 g/dL (32.0-37.0); MCV 82.8 FL (80.0-97.0); Mean Platelet Volume 10.7 FL (9.5-12.2); Monocytes # (A) 0.72 X 10*3/uL (0.20-1.00); Monocytes % (A) 7.8 %; NRBC Per 100 WBC 0 X 10*3/uL (0.00-0.01); Neutrophils # (A) 7.34 X 10*3/uL (1.80-7.70); Neutrophils % (A) 79.6 %; Platelet Count 293 X 10*3/uL (140-440); RBC 4.24 X 10*6/uL (4.40-5.60); RDW 13.8 % (11.5-14.5); WBC 9.22 X 10*3/uL (4.50-10.00)
[2024-03-14 10:27] LABS: ALT 11 U/L (10-49); AST 17 U/L (14-35); Albumin 3.1 g/dL (3.8-4.9); Albumin/Globulin Ratio 1.03 Ratio (1.60-3.17); Alkaline Phosphatase 79 U/L (41-126); Blood Urea Nitrogen 10.2 mg/dL (9.0-27.0); Calcium 8.6 mg/dL (8.7-10.3); Carbon Dioxide 22.8 mmol/L (21.6-31.8); Chloride 104 mmol/L (96-109); Glucose 115 mg/dL (70-110); Potassium 4.3 mmol/L (3.5-5.5); Sodium 138 mmol/L (135-145); Total Bilirubin 0.4 mg/dL (0.3-1.2); Total Protein 6.1 g/dL (6.2-8.2)
--- NOTE | 2024-03-14 11:53 | P.PN ---
Subjective Progress Note Date: 03/14/24 Pt is doing better today, but still having some pain and soreness of LLE. Denies fevers, chills, nausea, vomiting. Gen: In NAD, non-toxic HEENT: normocephalic, atraumatic, hearing acuity is intant, mucous membranes moist CVS: perfusing all extremities well, no pitting edema, Respiratory: symmetric chest expansion, no accessory muscle use, GI: soft, NTTP, ND, : no suprapubic tenderness, no CVA tenderness MSK/Derm: no rashes, cyanosis Neuro: CN II-XII intact, no motor weakness, Psych: cooperative, euthymic mood, judgment and insight is intact Hospital course: 68-year-old male with medical history of diabetes, peripheral arterial disease presented for evaluation of cellulitis. He was seen in consultation with infectious disease and vascular surgery and was found to have infected wound war ranting debridement in the operating room. He was treated with broad-spectrum antibiotics and taken to the operating room where he had washout and debridement. His wound culture was growing E. coli. Assessment/plan: Left lower extremity cellulitis Peripheral vascular disease -Continue Zosyn (03/11-present) -Follow-up wound culture to completion, currently growing E coli -Wound care consultation -Pain control -ID consultation is appreciated, they recommend PICC line for outpatient IV antibiotics Chronic Systolic Heart Failure, EF 40% Ischemic Cardiomyopathy CAD - GDMT: lisinopril 10mg BID, metoprolol XL 50mg HS, - consider additions of aldactone, switching from lisinopril to ARNI, farxiga - continue ASA, Brillinta, Atorvastatin, Imdur - echocardiogram ordered BPH Hyperlipidemia -Home medications reviewed and reconciled Patient is full code Objective - Vital Signs Vital signs: Vital Signs Temp 97.9 F 03/14/24 07:00 Pulse 79 03/14/24 07:00 Resp 16 03/14/24 02:33 BP 142/89 03/14/24 07:00 Pulse Ox 99 03/14/24 07:00 FiO2 Intake & Output 03/13/24 03/14/24 03/14/24 18:59 06:59 18:59 Intake Total 690 Output Total 705 950 900 Balance - Weight 72.575 kg Intake: IV 600 Oral 90 Output: Urine 700 950 900 Estimated Blood Loss 5 Other: Voiding Method Urinal # Voids 2 - Labs CBC & Chem 7: 03/14/24 05:42 03/14/24 05:42 Labs: Abnormal Lab Results - Last 24 Hours (Table) 03/14/24 03/14/24 Range/Units 05:42 05:42 RBC 4.24 L (4.40-5.60) X 10*6/uL Hgb 11.8 L (13.0-17.0) g/dL Hct 35.1 L (39.6-50.0) % BUN/Creatinine Ratio 10.20 L (12.00-20.00) Ratio Glucose 115 H (70-110) mg/dL Calcium 8.6 L (8.7-10.3) mg/dL Total Protein 6.1 L (6.2-8.2) g/dL Albumin 3.1 L (3.8-4.9) g/dL Albumin/Globulin Ratio 1.03 L (1.60-3.17) Ratio Microbiology - Last 24 Hours (Table) 03/13/24 08:20 Gram Stain - Preliminary Ankle - Left Wound Culture - Preliminary Escherichia coli 03/11/24 14:40 Gram Stain - Final Ankle - Left Wound Culture - Final Escherichia coli 03/11/24 14:35 Blood Culture - Preliminary Blood 03/11/24 14:50 Blood Culture - Preliminary Blood
--- NOTE | 2024-03-14 13:34 | P.PN ---
Subjective Progress Note Date: 03/14/24 Principal diagnosis: Reason for follow-up is left lateral malleolar wound and cellulitis Patient is a 68-year-old -[place] male with multiple comorbidities dealing with a nonhealing wound to the left lateral malleolar area failing outpatient oral antibiotic therapy presented to hospital with the nonhealing wound who worsening pain and swelling and redness diagnosed with a wound infection concerning for possible deeper infection. The patient is status post Excisional debridement of left lateral ankle wound and washout of abscess completed on 03/13/2024 On today's evaluation that is 03/14/2024, patient has been afebrile, patient is breathing comfortably and is currently on room air, patient denies having any significant cough no chest pain shortness of breath, patient denies nausea vomiting or diarrhea and no abdominal pain still complaining of pain to the left lateral ankle wound area but no worsening. Patient white count is 9.22 creatinine 1.0 sed rate is 73 local culture with E. coli that is a sensitive pathogen Objective - Vital Signs Vital signs: Vital Signs Temp 97.9 F 03/14/24 07:00 Pulse 79 03/14/24 07:00 Resp 16 03/14/24 02:33 BP 142/89 03/14/24 07:00 Pulse Ox 99 03/14/24 07:00 FiO2 Intake & Output 03/13/24 03/14/24 03/14/24 18:59 06:59 18:59 Intake Total 690 Output Total 705 950 900 Balance -15 950 -900 Weight 72.575 kg Intake: IV 600 Oral 90 Output: Urine 700 950 900 Estimated Blood Loss 5 Other: Voiding Method Urinal # Voids 2 - Exam GENERAL DESCRIPTION: An elderly male lying in bed in no distress RESPIRATORY SYSTEM: Unlabored breathing , decreased breath sounds at bases HEART: S1 S2 regular rate and rhythm , ABDOMEN: Soft , no tenderness EXTREMITIES: Left lateral malleolus wound is covered with a wound VAC - Labs CBC & Chem 7: 03/14/24 05:42 03/14/24 05:42 Labs: Abnormal Lab Results - Last 24 Hours (Table) 03/14/24 03/14/24 Range/Units 05:42 05:42 RBC 4.24 L (4.40-5.60) X 10*6/uL Hgb 11.8 L (13.0-17.0) g/dL Hct 35.1 L (39.6-50.0) % BUN/Creatinine Ratio 10.20 L (12.00-20.00) Ratio Glucose 115 H (70-110) mg/dL Calcium 8.6 L (8.7-10.3) mg/dL Total Protein 6.1 L (6.2-8.2) g/dL Albumin 3.1 L (3.8-4.9) g/dL Albumin/Globulin Ratio 1.03 L (1.60-3.17) Ratio Microbiology - Last 24 Hours (Table) 03/13/24 08:20 Gram Stain - Preliminary Ankle - Left Wound Culture - Preliminary Escherichia coli 03/11/24 14:40 Gram Stain - Final Ankle - Left Wound Culture - Final Escherichia coli 03/11/24 14:35 Blood Culture - Preliminary Blood 03/11/24 14:50 Blood Culture - Preliminary Blood Assessment and Plan (1) Wound of left ankle Current Visit: Yes Status: Acute Code(s): S91.002A - UNSPECIFIED OPEN WOUND, LEFT ANKLE, INITIAL ENCOUNTER SNOMED Code(s): 497840073 (2) Cellulitis of left foot Current Visit: Yes Status: Acute Code(s): L03.116 - CELLULITIS OF LEFT LOWER LIMB SNOMED Code(s): 29643570859104055 Plan: 1- patient with the nonhealing wound to the left lateral malar area now presented to the hospital with a wound infection and secondary cellulitis x-ray did not show any bony changes last culture from the left lateral ankle area wound has been E. coli and gram-negative failing outpatient oral antibiotic therapy 2patient is status post vascular surgery evaluation and surgical debridement and deep culture of the left lateral malar wound concerning for deep infection extending to the joint 3local culture currently growing E. coli that is a sensitive to ceftriaxone we will discontinue Zosyn start the patient Rocephin 2 g daily will benefit from PICC line and outpatient antibiotic on discharge Family the bedside questions were answered Dictation was produced using [employer] software. please excuse any grammatical, word or spelling errors. Time with Patient: Less than 30
[2024-03-15 10:50] LABS: Blood Urea Nitrogen 8.8 mg/dL (9.0-27.0); Calcium 8.7 mg/dL (8.7-10.3); Carbon Dioxide 21.1 mmol/L (21.6-31.8); Chloride 104 mmol/L (96-109); Glucose 127 mg/dL (70-110); Magnesium 1.9 mg/dL (1.5-2.4); Potassium 4.2 mmol/L (3.5-5.5); Sodium 138 mmol/L (135-145)
[2024-03-15 10:53] LABS: Basophils # (A) 0.03 X 10*3/uL (0.00-0.10); Basophils % (A) 0.4 %; Eosinophils # (A) 0.05 X 10*3/uL (0.04-0.35); Eosinophils % (A) 0.6 %; HCT 38.6 % (39.6-50.0); HGB 12.9 g/dL (13.0-17.0); Lymphocytes # (A) 1.12 X 10*3/uL (0.90-5.00); Lymphocytes % (A) 13.4 %; MCH 27.7 pg (27.0-32.0); MCHC 33.4 g/dL (32.0-37.0); Mean Platelet Volume 10.7 FL (9.5-12.2); Monocytes # (A) 0.48 X 10*3/uL (0.20-1.00); Monocytes % (A) 5.8 %; NRBC Per 100 WBC 0 X 10*3/uL (0.00-0.01); Neutrophils # (A) 6.63 X 10*3/uL (1.80-7.70); Neutrophils % (A) 79.6 %; Platelet Count 296 X 10*3/uL (140-440); RBC 4.65 X 10*6/uL (4.40-5.60); RDW 13.9 % (11.5-14.5); WBC 8.33 X 10*3/uL (4.50-10.00)
--- NOTE | 2024-03-15 11:30 | P.PN ---
Subjective Progress Note Date: 03/15/24 Principal diagnosis: Left foot wound Patient seen and examined today as a follow-up. Wound VAC is in place with good suction. Patient states he still having significant pain to his foot. He has been afebrile. Wound culture positive for E. coli. Objective - Vital Signs Vital signs: Vital Signs Temp 97.4 F L 03/15/24 07:00 Pulse 74 03/15/24 07:00 Resp 15 03/15/24 07:00 BP 143/80 03/15/24 07:00 Pulse Ox 100 03/15/24 07:00 FiO2 Intake & Output 03/14/24 03/15/24 03/15/24 18:59 06:59 18:59 Intake Total 765 Output Total 900 Balance -135 Intake: Intake, IV Titration 525 Amount Sodium Chloride 0.9% 1, 475 000 ml @ 75 mls/hr IV . [id number] [facility] Rx#:[id number] cefTRIAXone 2 gm In 50 Sodium Chloride 0.9% 50 ml @ 100 mls/hr IVPB Q24HR [facility] Rx#:[id number] Oral 240 Output: Urine 900 Other: Voiding Method Urinal # Voids 4 - Exam General appearance: The patient is alert, oriented, appears in no acute distress. HET: Head is normocephalic and atraumatic. Neck: Supple. Abdomen: Soft, nondistended. Extremities: Right lower extremity edema. Left foot with wound VAC in place with Juancarlos wrap in place. Neurological: No focal deficits. Alert and oriented. - Labs CBC & Chem 7: 03/15/24 07:34 03/15/24 07:34 Labs: Abnormal Lab Results - Last 24 Hours (Table) 03/14/24 03/14/24 Range/Units 05:42 05:42 RBC 4.24 L (4.40-5.60) X 10*6/uL Hgb 11.8 L (13.0-17.0) g/dL Hct 35.1 L (39.6-50.0) % BUN/Creatinine Ratio 10.20 L (12.00-20.00) Ratio Glucose 115 H (70-110) mg/dL Calcium 8.6 L (8.7-10.3) mg/dL Total Protein 6.1 L (6.2-8.2) g/dL Albumin 3.1 L (3.8-4.9) g/dL Albumin/Globulin Ratio 1.03 L (1.60-3.17) Ratio Microbiology - Last 24 Hours (Table) 03/11/24 14:35 Blood Culture - Preliminary Blood 03/11/24 14:50 Blood Culture - Preliminary Blood 03/13/24 08:20 Gram Stain - Preliminary Ankle - Left Wound Culture - Preliminary Escherichia coli 03/11/24 14:40 Gram Stain - Final Ankle - Left Wound Culture - Final Escherichia coli Assessment and Plan Assessment: 1. Left lateral malleolus chronic wound status post excisional debridement with wound VAC placement 2. Peripheral arterial disease 3. Diabetes mellitus Plan: 1. Continue with wound VAC, change Mondays, Wednesdays, Fridays 2. Antibiotics per recommendations from infectious disease 3. Continue with outpatient wound care with the wound clinic 4. Patient may ambulate as tolerated Thank you for this consultation. Patient is cleared from vascular surgery for discharge. The impression and plan of care has been dictated as directed. I performed a history and examination of this patient, discussed the same with the dictator. I agree with the dictator's note ,documented as a scribe. Any additional findings or plans will be noted.
--- NOTE | 2024-03-15 13:50 | P.PN ---
Subjective Progress Note Date: 03/15/24 Pt is doing better today, but still having some pain and soreness of LLE. Denies fevers, chills, nausea, vomiting. Gen: In NAD, non-toxic HEENT: normocephalic, atraumatic, hearing acuity is intant, mucous membranes moist CVS: perfusing all extremities well, no pitting edema, Respiratory: symmetric chest expansion, no accessory muscle use, GI: soft, NTTP, ND, : no suprapubic tenderness, no CVA tenderness MSK/Derm: no rashes, cyanosis Neuro: CN II-XII intact, no motor weakness, Psych: cooperative, euthymic mood, judgment and insight is intact Hospital course: 68-year-old male with medical history of diabetes, peripheral arterial disease presented for evaluation of cellulitis. He was seen in consultation with infectious disease and vascular surgery and was found to have infected wound war ranting debridement in the operating room. He was treated with broad-spectrum antibiotics and taken to the operating room where he had washout and debridement. His wound culture was growing E. coli. Assessment/plan: Left lower extremity cellulitis Peripheral vascular disease -Continue ceftriaxone 2gm daily (03/14-present), completed Zosyn (03/11-03/14) -Follow-up wound culture to completion, currently growing E coli -Wound care consultation appreciated, continue wound vac -Vascular surgery consult appreciated -Pain control -ID consultation is appreciated -s/p PICC 03/15 -pending insurance auth prior to discharge to [facility] Chronic Systolic Heart Failure, EF 40% Ischemic Cardiomyopathy CAD - GDMT: lisinopril 10mg BID, metoprolol XL 50mg HS, - consider additions of aldactone, switching from lisinopril to ARNI, farxiga - continue ASA, Brillinta, Atorvastatin, Imdur - echocardiogram ordered BPH Hyperlipidemia -Home medications reviewed and reconciled Patient is full code Objective - Vital Signs Vital signs: Vital Signs Temp 97.4 F L 03/15/24 07:00 Pulse 76 03/15/24 08:00 Resp 15 03/15/24 07:00 BP 143/80 03/15/24 07:00 Pulse Ox 100 03/15/24 07:00 FiO2 Intake & Output 03/14/24 03/15/24 03/15/24 18:59 06:59 18:59 Intake Total 765 222 Output Total 900 Balance -135 222 Intake: Intake, IV Titration 525 Amount Sodium Chloride 0.9% 1, 475 000 ml @ 75 mls/hr IV . [id number] [facility] Rx#:[id number] cefTRIAXone 2 gm In 50 Sodium Chloride 0.9% 50 ml @ 100 mls/hr IVPB Q24HR [facility] Rx#:[id number] Oral 240 222 Output: Urine 900 Other: Voiding Method Urinal Urinal # Voids 4 - Labs CBC & Chem 7: 03/15/24 07:34 03/15/24 07:34 Labs: Abnormal Lab Results - Last 24 Hours (Table) 03/15/24 03/15/24 Range/Units 07:34 07:34 Hgb 12.9 L (13.0-17.0) g/dL Hct 38.6 L (39.6-50.0) % Carbon Dioxide 21.1 L (21.6-31.8) mmol/L Anion Gap 12.90 H (4.00-12.00) mmol/L BUN 8.8 L (9.0-27.0) mg/dL BUN/Creatinine Ratio 8.80 L (12.00-20.00) Ratio Glucose 127 H (70-110) mg/dL Microbiology - Last 24 Hours (Table) 03/11/24 14:35 Blood Culture - Preliminary Blood 03/11/24 14:50 Blood Culture - Preliminary Blood 03/13/24 08:20 Gram Stain - Preliminary Ankle - Left Wound Culture - Preliminary Escherichia coli
[2024-03-15 14:51] VITALS: BP 120/84; PULSE 87; RESP 14; TEMP 98
--- NOTE | 2024-03-15 15:05 | P.PN ---
Subjective Progress Note Date: 03/15/24 Principal diagnosis: Reason for follow-up is left lateral malleolar wound and cellulitis Patient is a 68-year-old -Luxembourger male with multiple comorbidities dealing with a nonhealing wound to the left lateral malleolar area failing outpatient oral antibiotic therapy presented to hospital with the nonhealing wound who worsening pain and swelling and redness diagnosed with a wound infection concerning for possible deeper infection. The patient is status post Excisional debridement of left lateral ankle wound and washout of abscess completed on 03/13/2024 On today's evaluation that is 03/15/2024, Patient is afebrile this morning and denies any chills, patient mention breathing comfortably and is currently on room air, patient denies any chest pain occasional cough patient denies any abdominal pain no diarrhea no nausea no vomiting denies any worsening pain to the left ankle area. Patient white count was 8.33, creatinine 1.04 culture also positive for E. coli that is sensitive to ceftriaxone blood culture has been negative . Objective - Vital Signs Vital signs: Vital Signs Temp 97.4 F L 03/15/24 07:00 Pulse 76 03/15/24 08:00 Resp 15 03/15/24 07:00 BP 143/80 03/15/24 07:00 Pulse Ox 100 03/15/24 07:00 FiO2 Intake & Output 03/14/24 03/15/24 03/15/24 18:59 06:59 18:59 Intake Total 765 222 Output Total 900 Balance -135 222 Intake: Intake, IV Titration 525 Amount Sodium Chloride 0.9% 1, 475 000 ml @ 75 mls/hr IV . [id number] [facility] Rx#:[id number] cefTRIAXone 2 gm In 50 Sodium Chloride 0.9% 50 ml @ 100 mls/hr IVPB Q24HR [facility] Rx#:[id number] Oral 240 222 Output: Urine 900 Other: Voiding Method Urinal Urinal # Voids 4 - Exam GENERAL DESCRIPTION: An elderly male lying in bed in no distress RESPIRATORY SYSTEM: Unlabored breathing , decreased breath sounds at bases HEART: S1 S2 regular rate and rhythm , ABDOMEN: Soft , no tenderness EXTREMITIES: Left lateral malleolus wound is deep with a tendon exposed woodall rrounding redness improved - Labs CBC & Chem 7: 03/15/24 07:34 03/15/24 07:34 Labs: Abnormal Lab Results - Last 24 Hours (Table) 03/14/24 Range/Units 05:42 BUN/Creatinine Ratio 10.20 L (12.00-20.00) Ratio Glucose 115 H (70-110) mg/dL Calcium 8.6 L (8.7-10.3) mg/dL Total Protein 6.1 L (6.2-8.2) g/dL Albumin 3.1 L (3.8-4.9) g/dL Albumin/Globulin Ratio 1.03 L (1.60-3.17) Ratio Microbiology - Last 24 Hours (Table) 03/11/24 14:35 Blood Culture - Preliminary Blood 03/11/24 14:50 Blood Culture - Preliminary Blood 03/13/24 08:20 Gram Stain - Preliminary Ankle - Left Wound Culture - Preliminary Escherichia coli 03/11/24 14:40 Gram Stain - Final Ankle - Left Wound Culture - Final Escherichia coli Assessment and Plan (1) Wound of left ankle Current Visit: Yes Status: Acute Code(s): S91.002A - UNSPECIFIED OPEN WOUND, LEFT ANKLE, INITIAL ENCOUNTER SNOMED Code(s): 458305058 (2) Cellulitis of left foot Current Visit: Yes Status: Acute Code(s): L03.116 - CELLULITIS OF LEFT LOWER LIMB SNOMED Code(s): 87129131561810192 Plan: 1- patient with the nonhealing wound to the left lateral malar area now presented to the hospital with a wound infection and secondary cellulitis x-ray did not show any bony changes last culture from the left lateral ankle area wound has been E. coli and gram-negative failing outpatient oral antibiotic therapy 2patient is status post vascular surgery evaluation and surgical debridement and deep culture of the left lateral malar wound concerning for deep infection extending to the joint 3local culture currently growing E. coli that is a sensitive to ceftriaxone with concern for deep infection such as osteomyelitis/septic arthritis would recommend PICC line for total of 6-week course of IV Rocephin 2 g daily local wound care to continue current wound care and close outpatient follow-up Dictation was produced using [employer] software. please excuse any grammatical, word or spelling errors. Time with Patient: Less than 30
--- NOTE | 2024-03-15 15:38 | P.DS ---
Providers Date of admission: 03/11/24 16:27 Expected date of discharge: 03/15/24 Attending physician: Darryl Abarca MD Consults: 03/11/24 15:41 Consult Physician Routine Consulting Provider: Maggi Velez Consult Reason/Comments: Left ankle ulceration, peripheral vascular disease Do you want consulting provider notified?: Yes 03/11/24 16:13 Consult Physician Routine Consulting Provider: Beatriz Rodriges Consult Reason/Comments: Foot cellulitis/wound Do you want consulting provider notified?: Yes Primary care physician: [facility] Course: Assessment: Left lower extremity cellulitis Peripheral vascular disease Chronic Systolic Heart Failure, EF 40% Ischemic Cardiomyopathy CAD BPH Hyperlipidemia Gen: In NAD, non-toxic HEENT: normocephalic, atraumatic, hearing acuity is intant, mucous membranes moist CVS: perfusing all extremities well, no pitting edema, Respiratory: symmetric chest expansion, no accessory muscle use, GI: soft, NTTP, ND, : no suprapubic tenderness, no CVA tenderness MSK/Derm: no rashes, cyanosis Neuro: CN II-XII intact, no motor weakness, Psych: cooperative, euthymic mood, judgment and insight is intact Hospital course: 68-year-old male with medical history of diabetes, peripheral arterial disease presented for evaluation of cellulitis. He was seen in consultation with infectious disease and vascular surgery and was found to have infected wound warranting debridement in the operating room. He was treated with broad- spectrum antibiotics and taken to the operating room where he had washout and debridement. His wound culture was growing E. coli. Patient was treated with Zosyn from 03/11 to 03/14, then cultures resulted with sensitive E. coli to ceftriaxone, and patient was transitioned to ceftriaxone from 03/14 onwards. Patient was provided with a wound VAC which is to be changed 3 times a week. ID consultation was appreciated throughout the hospitalization, they will follow-up on discharge. Vascular surgery consultation was appreciated as well, they will follow-up on discharge. Patient is to follow-up with primary care provider as well. Patient to follow-up with cardiology to optimize goal-directed medical therapy for his chronic systolic heart failure. I spent 45 minutes coordinating this discharge Patient Condition at Discharge: Fair Plan - Discharge Summary New Discharge Prescriptions: New HYDROcodone/APAP 5-325MG [Reliance 5-325] 1 each PO Q4HR PRN #18 tab PRN Reason: Moderate Pain (Scale 4 To 6) cefTRIAXone [Rocephin] 2,000 mg IVP Q24HR #40 each Continue Tamsulosin [Flomax] 0.4 mg PO BID lisinopriL [Zestril] 10 mg PO BID #0 Cholecalciferol [Vitamin D3 (25 Mcg = 1000 Iu)] 25 mcg PO DAILY hydrALAZINE HCL [Apresoline] 50 mg PO TID #90 tab Isosorbide Mononitrate ER [Imdur] 60 mg PO DAILY #30 tab Atorvastatin [Lipitor] 80 mg PO HS #90 tab Metoprolol Succinate (ER) [Toprol XL] 50 mg PO HS Gabapentin [Neurontin] 600 mg PO TID Ticagrelor [Brilinta] 90 mg PO BID #60 tab DULoxetine HCL [Cymbalta] 120 mg PO DAILY ARIPiprazole 5 mg PO DAILY Aspirin EC [Ecotrin Low Dose] 81 mg PO DAILY Cyanocobalamin (Vitamin B-12) [Vitamin B-12] 1,000 mcg PO DAILY Discontinued Ferrous Sulfate [Iron] 325 mg PO DAILY Discharge Medication List Ticagrelor [Brilinta] 90 mg PO BID #60 tab 05/07/21 [Rx] Tamsulosin [Flomax] 0.4 mg PO BID 07/03/21 [History] lisinopriL [Zestril] 10 mg PO BID #0 07/06/21 [Rx] Cholecalciferol [Vitamin D3 (25 Mcg = 1000 Iu)] 25 mcg PO DAILY 10/22/21 [History] DULoxetine HCL [Cymbalta] 120 mg PO DAILY 04/04/22 [History] Atorvastatin [Lipitor] 80 mg PO HS #90 tab 04/09/22 [Rx] Isosorbide Mononitrate ER [Imdur] 60 mg PO DAILY #30 tab 04/09/22 [Rx] hydrALAZINE HCL [Apresoline] 50 mg PO TID #90 tab 04/09/22 [Rx] ARIPiprazole 5 mg PO DAILY 01/22/24 [History] Metoprolol Succinate (ER) [Toprol XL] 50 mg PO HS 01/22/24 [History] Aspirin EC [Ecotrin Low Dose] 81 mg PO DAILY 03/11/24 [History] Cyanocobalamin (Vitamin B-12) [Vitamin B-12] 1,000 mcg PO DAILY 03/11/24 [History] Gabapentin [Neurontin] 600 mg PO TID 03/11/24 [History] HYDROcodone/APAP 5-325MG [Reliance 5-325] 1 each PO Q4HR PRN #18 tab 03/15/24 [Rx] cefTRIAXone [Rocephin] 2,000 mg IVP Q24HR #40 each 03/15/24 [Rx] Follow up Appointment(s)/Referral(s): Ruchi Aj PAC [REFERRING] - 1-2 days Nam Darnell DO [STAFF PHYSICIAN] - As Needed Sg,JACEKI [NON-STAFF] - 1 Week [facility] [NON-STAFF] - 1 Week Beatriz Rodriges MD [STAFF PHYSICIAN] - 1 Week Ambulatory/Diagnostic Orders: Basic Metabolic Panel [LAB.AMB] Location: None Selected C Reactive Protein [LAB.AMB] Location: None Selected Complete Blood Count w/diff [LAB.AMB] Location: None Selected Erythrocyte Sedimentation Rate [LAB.AMB] Location: None Selected
== END 2024-03-15 16:30 | DRG 988 ==
LOC: EC 14:06 → OBSVTOIN 16:27 → 6NMEDSUR 16:27
PROVIDERS: ADMIT Student in an Organized Health Care Education/Training Program; ATTEND Student in an Organized Health Care Education/Training Program
PROC: 0SBG0ZZ Excision of Left Ankle Joint, Open Approach (ICD-10-PCS; principal; 2024-03-13 08:00)
DX: E11.51 Type 2 diabetes mellitus with diabetic peripheral angiopathy without gangrene (principal); I50.22 Chronic systolic (congestive) heart failure; L03.116 Cellulitis of left lower limb; L97.329 Non-pressure chronic ulcer of left ankle with unspecified severity; B96.20 Unspecified Escherichia coli [E. coli] as the cause of diseases classified elsewhere; E78.5 Hyperlipidemia, unspecified; F32.A Depression, unspecified; F41.9 Anxiety disorder, unspecified; I11.0 Hypertensive heart disease with heart failure; I25.10 Atherosclerotic heart disease of native coronary artery without angina pectoris; I25.5 Ischemic cardiomyopathy; S91.002A Unspecified open wound, left ankle, initial encounter; I70.202 Unspecified atherosclerosis of native arteries of extremities, left leg; N40.0 Benign prostatic hyperplasia without lower urinary tract symptoms; B96.89 Other specified bacterial agents as the cause of diseases classified elsewhere; I25.2 Old myocardial infarction; Z79.02 Long term (current) use of antithrombotics/antiplatelets; Z79.82 Long term (current) use of aspirin; Z79.899 Other long term (current) drug therapy; Z86.73 Personal history of transient ischemic attack (TIA), and cerebral infarction without residual deficits; Z87.891 Personal history of nicotine dependence; Z95.1 Presence of aortocoronary bypass graft; Z98.61 Coronary angioplasty status
CPT/HCPCS: 36415; 36573; 80048; 80053; 83605; 83735; 85025; 85610; 85652; 85730; 86140; 87040; 87070; 87075; 87077; 87186; 87205; 96365; 96366; 96367; 99284

== ENCOUNTER 2024-04-23 19:18 | Inpatient (IN) | payer OTHER, MEDICARE ==
[2024-04-23] MEDS ORDERED: SODIUM CHLORIDE 0.9% 500 ML BAG ONE (20:00)
[2024-04-23] MEDS ORDERED: SODIUM CHLORIDE 0.9% 100 ML BAG ONE ×2 (20:00→20:35)
[2024-04-23] MEDS ORDERED: CEFEPIME 2 GM VIAL IVPB ONE (20:07)
[2024-04-23] MEDS ORDERED: MORPHINE SULFATE 4 MG/ML SYRINGE ONE (20:07)
[2024-04-23] MEDS ORDERED: ONDANSETRON 4 MG/2 ML VIAL ONE (20:08)
[2024-04-24] MEDS ORDERED: ASPIRIN 81 MG ONE (13:48)
[2024-04-24] MEDS ORDERED: HEPARIN SODIUM 1,000 UN/ML (10ML VL) ONE (13:48)
[2024-04-24] MEDS ORDERED: HEPARIN SOD,PORK IN 0.45% NACL 250 ML IV ONE (13:48)
[2024-04-24] MEDS ORDERED: GABAPENTIN 300 MG CAP ONE ×2 (15:36→20:56)
[2024-04-24] MEDS ORDERED: traMADol 50 MG TAB ONE (20:56)
[2024-04-24] MEDS ORDERED: MELATONIN 3 MG TABLET ONE (20:57)
[2024-04-24] MEDS ORDERED: DOCUSATE 100 MG CAP ONE (20:57)
[2024-04-24] MEDS ORDERED: TAMSULOSIN 0.4 MG CAP.ER.24H PO ONE (20:57)
[2024-04-25] MEDS ORDERED: HEPARIN SODIUM 1,000 UN/ML (10ML VL) ONE (01:38)
[2024-04-25] MEDS ORDERED: PIPERACILLIN-TAZOBACTAM 3.375 GM VIAL ONE ×3 (01:38→14:32)
[2024-04-25] MEDS ORDERED: traMADol 50 MG TAB ONE ×2 (01:38→20:38)
[2024-04-25] MEDS ORDERED: PANTOPRAZOLE 40 MG/10 ML VIAL ONE ×2 (07:54→20:37)
[2024-04-25] MEDS ORDERED: ASPIRIN 81 MG ONE (07:54)
[2024-04-25] MEDS ORDERED: METOPROLOL SUCCINATE (ER) 50 MG TAB.ER.24H PO ONE (07:55)
[2024-04-25] MEDS ORDERED: ISOSORBIDE MONONITRATE ER 60 MG TAB.ER.24H PO ONE (07:55)
[2024-04-25] MEDS ORDERED: MIRTAZAPINE 15 MG TAB ONE (07:55)
[2024-04-25] MEDS ORDERED: DOCUSATE 100 MG CAP ONE ×2 (07:55→20:38)
[2024-04-25] MEDS ORDERED: lisinopriL 10 MG TAB ONE ×2 (07:55→20:39)
[2024-04-25] MEDS ORDERED: TAMSULOSIN 0.4 MG CAP.ER.24H PO ONE ×2 (07:56→20:39)
[2024-04-25] MEDS ORDERED: DULoxetine HCL 60 MG CAPSULE.DR PO ONE (07:56)
[2024-04-25] MEDS ORDERED: hydrALAZINE HCL 50 MG TAB ONE ×2 (14:31→20:39)
[2024-04-25] MEDS ORDERED: GABAPENTIN 300 MG CAP ONE ×3 (14:31→20:37)
[2024-04-25] MEDS ORDERED: TICAGRELOR 90 MG TAB ONE (21:14)
[2024-04-25] MEDS ORDERED: SODIUM CHLORIDE 0.9% 50 ML BAG ONE (23:59)
[2024-04-25] MEDS ORDERED: SODIUM CHLORIDE 0.9% 100 ML BAG IV ONE (23:59)
[2024-04-25] MEDS ORDERED: DAPTOmycin 500 MG VIAL ONE (23:59)
[2024-04-26] MEDS ORDERED: PIPERACILLIN-TAZOBACTAM 3.375 GM VIAL ONE ×3 (05:57→21:08)
[2024-04-26] MEDS ORDERED: hydrALAZINE HCL 50 MG TAB ONE ×2 (05:57→21:07)
[2024-04-26] MEDS ORDERED: GABAPENTIN 300 MG CAP ONE ×3 (05:57→21:06)
[2024-04-26] MEDS ORDERED: traMADol 50 MG TAB ONE (05:59)
[2024-04-26] MEDS ORDERED: METOPROLOL SUCCINATE (ER) 50 MG TAB.ER.24H PO ONE (08:57)
[2024-04-26] MEDS ORDERED: lisinopriL 10 MG TAB ONE ×2 (08:57→21:07)
[2024-04-26] MEDS ORDERED: ISOSORBIDE MONONITRATE ER 60 MG TAB.ER.24H PO ONE (08:57)
[2024-04-26] MEDS ORDERED: MIRTAZAPINE 15 MG TAB ONE (08:57)
[2024-04-26] MEDS ORDERED: ASPIRIN 81 MG ONE (08:57)
[2024-04-26] MEDS ORDERED: DOCUSATE 100 MG CAP ONE ×2 (08:57→21:07)
[2024-04-26] MEDS ORDERED: PANTOPRAZOLE 40 MG/10 ML VIAL ONE ×2 (08:57→21:06)
[2024-04-26] MEDS ORDERED: TICAGRELOR 90 MG TAB ONE ×2 (08:58→21:08)
[2024-04-26] MEDS ORDERED: DULoxetine HCL 60 MG CAPSULE.DR PO ONE (08:58)
[2024-04-26] MEDS ORDERED: HEPARIN SODIUM,PORCINE 5,000 UNIT/ML 1 ML VIAL ONE (08:58)
[2024-04-26] MEDS ORDERED: TAMSULOSIN 0.4 MG CAP.ER.24H PO ONE ×2 (08:58→21:08)
[2024-04-26] MEDS ORDERED: hydrALAZINE HCL 25 MG TAB ONE (12:41)
[2024-04-26] MEDS ORDERED: MELATONIN 5 MG TABLET ONE (21:07)
[2024-04-26] MEDS ORDERED: SODIUM CHLORIDE 0.9% 100 ML BAG ONE (23:59)
[2024-04-26] MEDS ORDERED: SODIUM CHLORIDE 0.9% 50 ML BAG ONE (23:59)
[2024-04-26] MEDS ORDERED: DAPTOmycin 500 MG VIAL ONE (23:59)
[2024-04-27] MEDS ORDERED: traMADol 50 MG TAB ONE ×2 (04:51→17:54)
[2024-04-27] MEDS ORDERED: PIPERACILLIN-TAZOBACTAM 3.375 GM VIAL ONE ×3 (04:51→21:39)
[2024-04-27] MEDS ORDERED: GABAPENTIN 300 MG CAP ONE ×3 (05:54→21:39)
[2024-04-27] MEDS ORDERED: PANTOPRAZOLE 40 MG/10 ML VIAL ONE ×2 (08:02→19:45)
[2024-04-27] MEDS ORDERED: DOCUSATE 100 MG CAP ONE ×2 (08:03→19:45)
[2024-04-27] MEDS ORDERED: ISOSORBIDE MONONITRATE ER 60 MG TAB.ER.24H PO ONE (08:03)
[2024-04-27] MEDS ORDERED: METOPROLOL SUCCINATE (ER) 50 MG TAB.ER.24H PO ONE (08:03)
[2024-04-27] MEDS ORDERED: ASPIRIN 81 MG ONE (08:03)
[2024-04-27] MEDS ORDERED: lisinopriL 10 MG TAB ONE ×2 (08:04→19:45)
[2024-04-27] MEDS ORDERED: MIRTAZAPINE 15 MG TAB ONE (08:04)
[2024-04-27] MEDS ORDERED: TAMSULOSIN 0.4 MG CAP.ER.24H PO ONE ×2 (08:04→19:46)
[2024-04-27] MEDS ORDERED: DULoxetine HCL 60 MG CAPSULE.DR PO ONE (08:04)
[2024-04-27] MEDS ORDERED: TICAGRELOR 90 MG TAB ONE ×2 (08:07→19:46)
[2024-04-27] MEDS ORDERED: hydrALAZINE HCL 50 MG TAB ONE ×2 (14:23→21:39)
[2024-04-27] MEDS ORDERED: MELATONIN 5 MG TABLET ONE (19:45)
[2024-04-27] MEDS ORDERED: DAPTOmycin 500 MG VIAL ONE (23:59)
[2024-04-27] MEDS ORDERED: SODIUM CHLORIDE 0.9% 100 ML BAG IV ONE (23:59)
[2024-04-27] MEDS ORDERED: SODIUM CHLORIDE 0.9% 50 ML BAG ONE (23:59)
[2024-04-28] MEDS ORDERED: traMADol 50 MG TAB ONE ×2 (00:19→22:09)
[2024-04-28] MEDS ORDERED: GABAPENTIN 300 MG CAP ONE ×3 (05:43→22:23)
[2024-04-28] MEDS ORDERED: hydrALAZINE HCL 50 MG TAB ONE ×3 (05:44→22:09)
[2024-04-28] MEDS ORDERED: PIPERACILLIN-TAZOBACTAM 3.375 GM VIAL ONE ×3 (05:44→23:30)
[2024-04-28] MEDS ORDERED: DOCUSATE 100 MG CAP ONE ×2 (07:49→22:09)
[2024-04-28] MEDS ORDERED: PANTOPRAZOLE 40 MG/10 ML VIAL ONE ×2 (07:49→22:08)
[2024-04-28] MEDS ORDERED: ASPIRIN 81 MG ONE (07:49)
[2024-04-28] MEDS ORDERED: ISOSORBIDE MONONITRATE ER 60 MG TAB.ER.24H PO ONE (07:49)
[2024-04-28] MEDS ORDERED: METOPROLOL SUCCINATE (ER) 50 MG TAB.ER.24H PO ONE (07:50)
[2024-04-28] MEDS ORDERED: TAMSULOSIN 0.4 MG CAP.ER.24H PO ONE ×2 (07:50→22:09)
[2024-04-28] MEDS ORDERED: MIRTAZAPINE 15 MG TAB ONE (07:50)
[2024-04-28] MEDS ORDERED: lisinopriL 10 MG TAB ONE ×2 (07:50→22:09)
[2024-04-28] MEDS ORDERED: TICAGRELOR 90 MG TAB ONE ×2 (07:51→22:10)
[2024-04-28] MEDS ORDERED: DULoxetine HCL 60 MG CAPSULE.DR PO ONE (07:51)
[2024-04-28] MEDS ORDERED: DAPTOmycin 500 MG VIAL ONE (23:59)
[2024-04-28] MEDS ORDERED: SODIUM CHLORIDE 0.9% 50 ML BAG ONE (23:59)
[2024-04-28] MEDS ORDERED: SODIUM CHLORIDE 0.9% 100 ML BAG ONE (23:59)
[2024-04-29] MEDS ORDERED: PIPERACILLIN-TAZOBACTAM 3.375 GM VIAL ONE ×3 (06:11→22:04)
[2024-04-29] MEDS ORDERED: hydrALAZINE HCL 50 MG TAB ONE ×4 (06:11→22:04)
[2024-04-29] MEDS ORDERED: GABAPENTIN 300 MG CAP ONE ×3 (06:11→22:03)
[2024-04-29] MEDS ORDERED: traMADol 50 MG TAB ONE ×2 (06:13→12:58)
[2024-04-29] MEDS ORDERED: ASPIRIN 81 MG ONE (08:34)
[2024-04-29] MEDS ORDERED: ISOSORBIDE MONONITRATE ER 60 MG TAB.ER.24H PO ONE (08:34)
[2024-04-29] MEDS ORDERED: DOCUSATE 100 MG CAP ONE ×2 (08:34→22:04)
[2024-04-29] MEDS ORDERED: PANTOPRAZOLE 40 MG/10 ML VIAL ONE ×2 (08:34→22:03)
[2024-04-29] MEDS ORDERED: MIRTAZAPINE 15 MG TAB ONE (08:35)
[2024-04-29] MEDS ORDERED: METOPROLOL SUCCINATE (ER) 50 MG TAB.ER.24H PO ONE (08:35)
[2024-04-29] MEDS ORDERED: DULoxetine HCL 60 MG CAPSULE.DR PO ONE (08:35)
[2024-04-29] MEDS ORDERED: lisinopriL 10 MG TAB ONE ×2 (08:35→22:05)
[2024-04-29] MEDS ORDERED: TAMSULOSIN 0.4 MG CAP.ER.24H PO ONE ×2 (08:35→22:04)
[2024-04-29] MEDS ORDERED: TICAGRELOR 90 MG TAB ONE ×2 (08:36→22:04)
[2024-04-29] MEDS ORDERED: HYDROcodone/APAP 5-325MG 1 EACH TAB ONE (22:03)
[2024-04-29] MEDS ORDERED: SODIUM CHLORIDE 0.9% 100 ML BAG IV ONE (23:59)
[2024-04-29] MEDS ORDERED: LINEZOLID 600 MG TAB ONE (23:59)
[2024-04-30] MEDS ORDERED: hydrALAZINE HCL 50 MG TAB ONE ×3 (05:18→21:44)
[2024-04-30] MEDS ORDERED: PIPERACILLIN-TAZOBACTAM 3.375 GM VIAL ONE ×3 (05:18→21:44)
[2024-04-30] MEDS ORDERED: HYDROcodone/APAP 5-325MG 1 EACH TAB ONE ×2 (05:18→11:48)
[2024-04-30] MEDS ORDERED: GABAPENTIN 300 MG CAP ONE ×3 (05:18→21:43)
[2024-04-30] MEDS ORDERED: PANTOPRAZOLE 40 MG/10 ML VIAL ONE ×2 (08:51→21:43)
[2024-04-30] MEDS ORDERED: TAMSULOSIN 0.4 MG CAP.ER.24H PO ONE ×2 (08:52→21:44)
[2024-04-30] MEDS ORDERED: METOPROLOL SUCCINATE (ER) 50 MG TAB.ER.24H PO ONE (08:52)
[2024-04-30] MEDS ORDERED: ASPIRIN 81 MG ONE (08:52)
[2024-04-30] MEDS ORDERED: DOCUSATE 100 MG CAP ONE ×2 (08:52→21:43)
[2024-04-30] MEDS ORDERED: ISOSORBIDE MONONITRATE ER 60 MG TAB.ER.24H PO ONE (08:52)
[2024-04-30] MEDS ORDERED: lisinopriL 10 MG TAB ONE ×2 (08:52→21:44)
[2024-04-30] MEDS ORDERED: TICAGRELOR 90 MG TAB ONE ×2 (08:53→21:45)
[2024-04-30] MEDS ORDERED: MELATONIN 5 MG TABLET ONE (21:44)
[2024-04-30] MEDS ORDERED: LINEZOLID 600 MG TAB ONE (23:59)
[2024-04-30] MEDS ORDERED: SODIUM CHLORIDE 0.9% 100 ML BAG IV ONE (23:59)
[2024-05-01] MEDS ORDERED: HYDROcodone/APAP 5-325MG 1 EACH TAB ONE ×2 (01:49→13:17)
[2024-05-01] MEDS ORDERED: PIPERACILLIN-TAZOBACTAM 3.375 GM VIAL ONE ×2 (06:21→13:18)
[2024-05-01] MEDS ORDERED: hydrALAZINE HCL 50 MG TAB ONE (06:21)
[2024-05-01] MEDS ORDERED: GABAPENTIN 300 MG CAP ONE ×2 (06:21→13:18)
[2024-05-01] MEDS ORDERED: PANTOPRAZOLE 40 MG/10 ML VIAL ONE (09:10)
[2024-05-01] MEDS ORDERED: ISOSORBIDE MONONITRATE ER 60 MG TAB.ER.24H PO ONE (09:11)
[2024-05-01] MEDS ORDERED: lisinopriL 10 MG TAB ONE (09:11)
[2024-05-01] MEDS ORDERED: ASPIRIN 81 MG ONE (09:11)
[2024-05-01] MEDS ORDERED: METOPROLOL SUCCINATE (ER) 50 MG TAB.ER.24H PO ONE (09:11)
[2024-05-01] MEDS ORDERED: DOCUSATE 100 MG CAP ONE (09:11)
[2024-05-01] MEDS ORDERED: TAMSULOSIN 0.4 MG CAP.ER.24H PO ONE (09:12)
[2024-05-01] MEDS ORDERED: TICAGRELOR 90 MG TAB ONE (09:12)
[2024-05-01] MEDS ORDERED: NALOXONE 0.4 MG/ML 1 ML VIAL IV PRN (16:18)
[2024-05-01] MEDS ORDERED: SODIUM CHLORIDE 0.9% 100 ML BAG IV ONE (23:59)
[2024-05-01] MEDS ORDERED: LINEZOLID 600 MG TAB ONE (23:59)
[2024-05-02] MEDS: PIPERACILLIN-TAZOBACTAM 3.375 GM in SODIUM CHLORIDE 0.9% 100 ML IVPB SCH (06:08)
[2024-05-02] MEDS ORDERED: PANTOPRAZOLE 40 MG TABLET PO SCH (07:30)
[2024-05-02] MEDS: HYDROcodone/APAP 5-325MG 1 EACH TAB PO PRN (08:34)
[2024-05-02] MEDS: hydrALAZINE HCL 50 MG TAB PO SCH (08:36)
[2024-05-02] MEDS: PANTOPRAZOLE 40 MG/10 ML VIAL IVP SCH (08:36)
[2024-05-02] MEDS: TAMSULOSIN 0.4 MG CAP.ER.24H PO SCH (08:36)
[2024-05-02] MEDS: ISOSORBIDE MONONITRATE ER 60 MG TAB.ER.24H PO SCH (08:36)
[2024-05-02] MEDS: GABAPENTIN 300 MG CAP PO SCH (08:36)
[2024-05-02] MEDS: ASPIRIN 81 MG PO SCH (08:36)
[2024-05-02] MEDS: METOPROLOL SUCCINATE (ER) 50 MG TAB.ER.24H PO SCH (08:37)
[2024-05-02] MEDS: DOCUSATE 100 MG CAP PO SCH (08:37)
[2024-05-02] MEDS: TICAGRELOR 90 MG TAB PO SCH (08:37)
[2024-05-02] MEDS: LINEZOLID 600 MG TAB PO SCH (08:37)
[2024-05-02] MEDS: lisinopriL 10 MG TAB PO SCH (11:34)
--- NOTE | 2024-05-02 13:19 | P.PN ---
Subjective Progress Note Date: 05/02/24 Pleasant 68-year-old male who had outpatient therapy of a left malleolar wound. Wound to the left arredondo as well as the right great toe. There is concern for gangrenous changes in a patient with peripheral arterial disease. Vascular surgery was consulted to evaluate this patient for possible amputation of the right great toe and also surgical debridement of the left ankle wound. ID has been following closely. We are unable to locate the left ankle wound culture at this time and will need surgical cultures taken during debridement. He had positive blood cultures for VRE. Per lab the most recent blood cultures are negative as well as the PICC line tip. Review of Systems Constitutional: Denied any fatigue denied any fever. Cardio vascular: denied any chest pain, palpitations Gastrointestinal: denied any nausea, vomiting, diarrhea Pulmonary: Denied any shortness of breath cough Neurologic denied any new focal deficits All inpatient medications were reviewed and appropriate changes in these medications as dictated in the interval history and assessment and plan. PHYSICAL EXAMINATION: GENERAL: The patient is alert and oriented x3, not in any acute distress. Well developed, well nourished. HEENT: Pupils are round and equally reacting to light. EOMI. No scleral icterus. No conjunctival pallor. Normocephalic, atraumatic. No pharyngeal erythema. No thyromegaly. CARDIOVASCULAR: S1 and S2 present. No murmurs, rubs, or gallops. PULMONARY: Chest is clear to auscultation, no wheezing or crackles. ABDOMEN: Soft, nontender, nondistended, normoactive bowel sounds. No palpable organomegaly. MUSCULOSKELETAL: No joint swelling or deformity. EXTREMITIES: No cyanosis, clubbing, or pedal edema. NEUROLOGICAL: Gross neurological examination did not reveal any focal deficits. Diffusely weak. SKIN: No rashes. Left malleolar wound, left arredondo wound. Right great toe wound. Assessment -VRE bacteremia secondary to PICC line has been discontinued. -Left malleolar wound underlying osteomyelitis and sepsis needs surgical debridement and deep tissue cultures. -Episode of VTach/SVT resolved -Chronic heart failure with reduced EF 25-30%. -NSTEMI type 2 -Coronary artery disease with previous CABG and multiple stents -Acute kidney injury, resolved. -Hx of peripheral arterial disease with prior bypass -Diabetes mellitus type 2 -History of stroke 2020 with left sided deficits -Hx hypertension -Hyperlipidemia -Hx of peripheral neuropathy GI prophylaxis DVT prophylaxis Full Code Plan -Continue on Zyvox at this time further antibiotic recommendations per ID -Still waiting for left malleolar culture; will need to be repeated if plan is for surgical debridement. -Continues on IV zosyn also -Cardiology has signed off at this time -Vascular consultation in place; possible amputation -Continue aspirin/brilinta -Monitor renal function and repeat labs in the AM -PT/OT consultation in place. The impression and plan of care has been dictated by Caprice Stern, Nurse Practitioner as directed. Dr. Rebecca MD I have performed a history and physical examination and medical decision making of this patient, discussed the same with the dictator, and agree with the dictators assessment and plan as written, documented as a scribe. Based on total visit time, I have performed more than 50% of this visit. Objective - Vital Signs Vital signs: Vital Signs Temp 97.7 F 05/02/24 04:00 Pulse 52 L 05/02/24 11:35 Resp 16 05/02/24 11:35 BP 88/55 05/02/24 11:35 Pulse Ox 98 05/02/24 11:35 FiO2 Intake & Output 05/01/24 05/02/24 05/02/24 18:59 06:59 18:59 Intake Total 118 Output Total 250 Balance -132 Weight 63.5 kg 65.4 kg Intake: Oral 118 Output: Urine 250 Other: # Bowel Movements 1 Assessment and Plan Time with Patient: Less than 30
--- NOTE | 2024-05-02 14:58 | P.PN ---
Subjective Progress Note Date: 05/02/24 Principal diagnosis: Reason for follow-up is VRE bacteremia and left lateral malleolar osteomyelitis Patient is a 68-year-old male with multiple comorbidities he did have a left lateral malleolar osteomyelitis diagnosed back in March culture positive for E. coli Enterobacter for which the patient was treated with Zosyn patient subsequently left the alf and was not clear he was given antibiotics at home presenting to the hospital with decreased level of responsiveness has been diagnosed with VRE bacteremia likely related to the PICC line which has been discontinued and did have extensive wound to the left lateral malleolus as well as left big toe On today's evaluation that is 05/02/2024,the patient denies any fever or any chills, patient is breathing comfortably on room air, the patient denies chest pain shortness of breath and no significant cough, patient denies abdominal pain, no nausea vomiting or diarrhea. Patient denies any worsening pain to the left foot and ankle area. No labs in the computer system today. Objective - Vital Signs Vital signs: Vital Signs Temp 97.7 F 05/02/24 04:00 Pulse 52 L 05/02/24 11:35 Resp 16 05/02/24 11:35 BP 88/55 05/02/24 11:35 Pulse Ox 98 05/02/24 11:35 FiO2 Intake & Output 05/01/24 05/02/24 05/02/24 18:59 06:59 18:59 Intake Total 118 Output Total 250 Balance -132 Weight 63.5 kg 65.4 kg Intake: Oral 118 Output: Urine 250 Other: # Bowel Movements 1 - Exam GENERAL DESCRIPTION: An elderly male lying in bed in no distress RESPIRATORY SYSTEM: Unlabored breathing , decreased breath sounds at bases HEART: S1 S2 regular rate and rhythm , ABDOMEN: Soft , no tenderness EXTREMITIES: Left foot and ankle is currently dressed Assessment and Plan (1) VRE bacteremia Current Visit: Yes Status: Acute Code(s): R78.81 - BACTEREMIA; B95.2 - ENTEROCOCCUS THE CAUSE OF DISEASES CLASSIFIED ELSEWHERE; Z16.21 - RESISTANCE TO VANCOMYCIN SNOMED Code(s): 7940413727 (2) Foot osteomyelitis, left Current Visit: Yes Status: Acute Code(s): M86.9 - OSTEOMYELITIS, UNSPECIFIED SNOMED Code(s): 3548620752221558 Plan: 1patient with VRE bacteremia source likely PICC line which has been discontinued currently waiting for the PICC line tip as well as repeat blood cultures to be finalized, patient is on Zyvox 2patient with a left lateral malleolar wound as well as wound to the left big toe await further recommendation from vascular surgery patient is being treated with Zosyn we will follow on clinical condition and cultures to further adjust medication if needed Dictation was produced using [employer] dictation software. please excuse any gr ammatical, word or spelling errors. Time with Patient: Less than 30
[2024-05-02] MEDS: HEPARIN SODIUM,PORCINE 5,000 UNIT/ML 1 ML VIAL SQ SCH (16:50)
[2024-05-02] MEDS: MELATONIN 5 MG TABLET PO SCH (20:19)
[2024-05-03 08:14] LABS: Anisocytosis Slight; Basophils % (A) 0 %; Eosinophils # (A) 0.1 k/uL (0-0.7); Eosinophils % (A) 1 %; HCT 32.7 % (39.0-53.0); Hypochromasia Moderate; Lymphocytes # (A) 0.8 k/uL (1.0-4.8); Lymphocytes % (A) 6 %; MCHC 31.3 g/dL (31.0-37.0); MCV 83.3 fL (80.0-100.0); Mean Platelet Volume 9.3; Monocytes # (A) 0.3 k/uL (0-1.0); Monocytes % (A) 3 %; Neutrophils # (A) 12.5 k/uL (1.3-7.7); Neutrophils % (A) 91 %; Platelet Count 262 k/uL (150-450); Poikilocytosis Slight; RBC 3.92 m/uL (4.30-5.90); RDW 16.5 % (11.5-15.5); WBC 13.7 k/uL (3.8-10.6)
[2024-05-03 08:44] LABS: African American GFR (CKD) >90 (>60 ml/min/1.73 sqM); Anion Gap 7 mmol/L; Blood Urea Nitrogen 13 mg/dL (9-20); Calcium 8.8 mg/dL (8.4-10.2); Carbon Dioxide 18 mmol/L (22-30); Chloride 114 mmol/L (98-107); Glucose 141 mg/dL (74-99); Magnesium 2.1 mg/dL (1.6-2.3); Non-African American GFR(CKD) 87 (>60 ml/min/1.73 sqM); Potassium 3.8 mmol/L (3.5-5.1); Sodium 139 mmol/L (137-145)
[2024-05-03 08:48] LABS: HGB 10.2 gm/dL (13.0-17.5)
[2024-05-03] MEDS: PANTOPRAZOLE 40 MG/10 ML VIAL ONE ×3 (12:53→12:54)
[2024-05-03] MEDS: ASPIRIN 81 MG ONE ×2 (12:53→12:54)
[2024-05-03] MEDS: HYDROcodone/APAP 5-325MG 1 EACH TAB ONE ×2 (12:53→12:54)
--- NOTE | 2024-05-03 15:53 | P.PN ---
Subjective Progress Note Date: 05/03/24 Pleasant 68-year-old male who had outpatient therapy of a left malleolar wound. Wound to the left arredondo as well as the right great toe. There is concern for gangrenous changes in a patient with peripheral arterial disease. Vascular surgery was consulted to evaluate this patient for possible amputation of the right great toe and also surgical debridement of the left ankle wound. ID has been following closely. We are unable to locate the left ankle wound culture at this time and will need surgical cultures taken during debridement. He had positive blood cultures for VRE. Per lab the most recent blood cultures are negative as well as the PICC line tip. 05/03/2024 Patient is seen and evaluated in follow-up with infectious disease following. Patient maintained on antibiotics and will likely transition to oral. Vascular surgery consulted to evaluate for possible amputation of the right great toe and also possible surgical debridement of the left arredondo wound. Patient continues to have some lower extremity swelling more so on the left and reports his pain is 7/10 on the pain scale. Patient with significant weakness working on going to [facility] and would like to go to [facility]. Will await vascular surgery consultation and evaluation to consider discharge planning moving forward. Patient is currently afebrile. Patient will require insurance authorization as well once discharge planning is in progress. Review of Systems Constitutional: Denied any fatigue denied any fever. Cardio vascular: denied any chest pain, palpitations Gastrointestinal: denied any nausea, vomiting, diarrhea Pulmonary: Denied any shortness of breath cough Neurologic denied any new focal deficits, reports of continued left arredondo pain 7/10 on the pain scale and diffusely weak with gait dysfunction All inpatient medications were reviewed and appropriate changes in these medications as dictated in the interval history and assessment and plan. PHYSICAL EXAMINATION: GENERAL: The patient is alert and oriented x3, not in any acute distress. Well developed, well nourished. Elderly appearing HEENT: Pupils are round and equally reacting to light. EOMI. No scleral icterus. No conjunctival pallor. Normocephalic, atraumatic. No pharyngeal erythema. No thyromegaly. CARDIOVASCULAR: S1 and S2 present. No murmurs, rubs, or gallops. PULMONARY: Chest is clear to auscultation, no wheezing or crackles. ABDOMEN: Soft, nontender, nondistended, normoactive bowel sounds. No palpable organomegaly. MUSCULOSKELETAL: No joint swelling or deformity. EXTREMITIES: No cyanosis, clubbing, or pedal edema. Arredondo and lower left extremity swelling noted, nonpitting with left arredondo wound also noted with some scabbing and mild drainage NEUROLOGICAL: Gross neurological examination did not reveal any focal deficits. Diffusely weak. SKIN: No rashes. Left malleolar wound, left arredondo wound. Right great toe wound. Assessment: -VRE bacteremia secondary to PICC line, has been discontinued. -Left malleolar wound underlying osteomyelitis and sepsis, present on admission, needs surgical debridement and deep tissue cultures. Awaiting vascular surgery consult -Episode of VTach/SVT resolved -Chronic heart failure with reduced EF 25-30%. -NSTEMI type 2 -Coronary artery disease with previous CABG and multiple stents -Acute kidney injury, resolved. -Hx of peripheral arterial disease with prior bypass -Diabetes mellitus type 2 -History of stroke 2020 with left sided deficits -Hx hypertension -Hyperlipidemia -Hx of peripheral neuropathy GI prophylaxis DVT prophylaxis Full Code Plan -Continue on Zyvox at this time, further antibiotic recommendations per ID -Still waiting for left malleolar culture; will need to be repeated if plan is for surgical debridement. Awaiting vascular surgery consultation to discuss possible amputation of the right great toe and possible debridement of the left arredondo and -Continues on IV zosyn also -Cardiology has signed off at this time -Continue aspirin/brilinta -Monitor renal function and repeat labs in the AM -PT/OT consultation in place as plan is for patient to go to [facility] once discharge planning is in progress. Patient will also require insurance authorization The impression and plan of care has been dictated by Quynh Berg, Nurse Practitioner as directed. Dr. Rebecca MD I have performed a history and physical examination and medical decision making of this patient, discussed the same with the dictator, and agree with the dictators assessment and plan as written, documented as a scribe. Based on total visit time, I have performed more than 50% of this visit. Objective - Vital Signs Vital signs: Vital Signs Temp 98.1 F 05/03/24 08:00 Pulse 73 05/03/24 08:00 Resp 16 05/03/24 08:00 BP 118/71 05/03/24 08:00 Pulse Ox 99 05/03/24 08:00 FiO2 Intake & Output 05/02/24 05/03/24 05/03/24 18:59 06:59 18:59 Intake Total 354 240 Output Total 250 200 Balance 104 -200 240 Weight 65.5 kg Intake: Oral 354 240 Output: Urine 250 200 Other: Voiding Method Urinal # Bowel Movements 1 - Labs CBC & Chem 7: 05/03/24 07:50 05/03/24 06:38 Labs: Abnormal Lab Results - Last 24 Hours (Table) 05/03/24 05/03/24 Range/Units 06:38 07:50 WBC 13.7 H (3.8-10.6) k/uL RBC 3.92 L (4.30-5.90) m/uL Hgb 10.2 L D (13.0-17.5) gm/dL Hct 32.7 L (39.0-53.0) % RDW 16.5 H (11.5-15.5) % Neutrophils # 12.5 H (1.3-7.7) k/uL Lymphocytes # 0.8 L (1.0-4.8) k/uL Chloride 114 H (98-107) mmol/L Carbon Dioxide 18 L (22-30) mmol/L Glucose 141 H (74-99) mg/dL
--- NOTE | 2024-05-04 09:50 | US ---
EXAMINATION TYPE: US abdomen limited DATE OF EXAM: 05/04/2024 COMPARISON: No relevant CLINICAL INDICATION: Male, 68 years old with history of RUQ Pain; TECHNIQUE: Multiple sonographic images of the right upper quadrant are obtained. FINDINGS: EXAM MEASUREMENTS: Liver Length: 11.6 cm Gallbladder Wall: 2 mm CBD: 0.2 cm Right Kidney: 11.4 x 5.0 cm PRACTICE BILLING ASSOCIATE NOTES: Pancreas: Obscured by bowel gas; heterogenous parenchyma. Liver: wnl Gallbladder: wnl Evidence for sonographic Campuzano's sign: No CBD: wnl Right Kidney: Peripelvic renal cysts measuring up to 3.4 cm. IMPRESSION: No evidence for obstructive uropathy. The gallbladder is within normal limits.
[2024-05-04 09:54] LABS: Anisocytosis Slight; Basophils % (A) 0 %; Eosinophils # (A) 0.1 k/uL (0-0.7); Eosinophils % (A) 1 %; HCT 35.4 % (39.0-53.0); HGB 11.2 gm/dL (13.0-17.5); Hypochromasia Marked; Lymphocytes # (A) 1.4 k/uL (1.0-4.8); Lymphocytes % (A) 10 %; MCHC 31.6 g/dL (31.0-37.0); MCV 82.3 fL (80.0-100.0); Mean Platelet Volume 8.8; Monocytes # (A) 0.4 k/uL (0-1.0); Monocytes % (A) 3 %; Neutrophils % (A) 86 %; Platelet Count 298 k/uL (150-450); RDW 16.2 % (11.5-15.5)
[2024-05-04 10:05] LABS: African American GFR (CKD) >90 (>60 ml/min/1.73 sqM); Anion Gap 11 mmol/L; Blood Urea Nitrogen 12 mg/dL (9-20); Calcium 8.9 mg/dL (8.4-10.2); Carbon Dioxide 20 mmol/L (22-30); Chloride 111 mmol/L (98-107); Glucose 156 mg/dL (74-99); Magnesium 2.1 mg/dL (1.6-2.3); Non-African American GFR(CKD) 85 (>60 ml/min/1.73 sqM); Potassium 4.5 mmol/L (3.5-5.1); Sodium 142 mmol/L (137-145)
--- NOTE | 2024-05-04 12:40 | P.PN ---
Subjective Progress Note Date: 05/04/24 Principal diagnosis: chronic left lower extremity wound, and right great toe wound Patient seen and evaluated. No overnight issues. Still having some discomfort of the left lower extremity and states that it smells really bad Objective - Vital Signs Vital signs: Vital Signs Temp 98.4 F 05/04/24 11:42 Pulse 55 L 05/04/24 11:42 Resp 16 05/04/24 11:42 BP 136/91 05/04/24 11:42 Pulse Ox 98 05/04/24 11:42 FiO2 Intake & Output 05/03/24 05/04/24 05/04/24 18:59 06:59 18:59 Intake Total 240 240 360 Output Total 360 Balance 240 -120 360 Weight 66.6 kg Intake: Oral 240 240 360 Output: Urine 360 Other: Voiding Method Urinal Urinal Urinal # Voids 1 - Exam Left lateral lower leg malodorous wound with purulent drainage, tenderness to palpation. Right great toe wound with fibrinous tissue and ischemic tissue noted. Mild drainage Nonpalpable DP, PT, popliteal, femoral pulses bilaterally 2+ pitting edema bilaterally - Labs CBC & Chem 7: 05/04/24 08:54 05/04/24 08:54 Labs: Abnormal Lab Results - Last 24 Hours (Table) 05/04/24 05/04/24 Range/Units 08:54 08:54 WBC 14.0 H (3.8-10.6) k/uL Hgb 11.2 L (13.0-17.5) gm/dL Hct 35.4 L (39.0-53.0) % RDW 16.2 H (11.5-15.5) % Neutrophils # 12.0 H (1.3-7.7) k/uL Chloride 111 H (98-107) mmol/L Carbon Dioxide 20 L (22-30) mmol/L Glucose 156 H (74-99) mg/dL Assessment and Plan Assessment: Chronic left lower extremity leg wound VRE bacteremia Chronic right great toe wound Severe peripheral arterial disease, critical limb ischemia Plan: After review of previous images and discussion with Dr. Velez his primary vascular surgeon it is unlikely that any debridement or treatment of the left lateral leg wound will heal due to his severe peripheral arterial disease and occlusions. Due to the severity of his infection and wound we discussed needing an AKA. He is agreeable to surgery and we will schedule him for tomorrow with Dr. Velez.
--- NOTE | 2024-05-04 12:40 | P.PN ---
Subjective Progress Note Date: 05/03/24 Principal diagnosis: Reason for follow-up is VRE bacteremia and left lateral malleolar osteomyelitis Patient is a 68-year-old male with multiple comorbidities he did have a left lateral malleolar osteomyelitis diagnosed back in March culture positive for E. coli Enterobacter for which the patient was treated with Zosyn patient subsequently left the correction and was not clear he was given antibiotics at home presenting to the hospital with decreased level of responsiveness has been diagnosed with VRE bacteremia likely related to the PICC line which has been dis continued and did have extensive wound to the left lateral malleolus as well as left big toe On today's evaluation that is 05/03/2024,the patient remains to be afebrile, patient is on room air not requiring supplemental oxygen and denies any shortness of breath no chest pain or cough.Patient denies having any nausea or vomiting, no abdominal pain and no diarrhea has been reported no worsening pain to the left lateral malleolar wound area noticed to have a wound to the right gluteal wound. Patient white count is 13.7 creatinine 0.89 Objective - Vital Signs Vital signs: Vital Signs Temp 98.1 F 05/03/24 08:00 Pulse 85 05/03/24 12:00 Resp 16 05/03/24 12:00 BP 95/62 05/03/24 12:00 Pulse Ox 100 05/03/24 12:00 FiO2 Intake & Output 05/02/24 05/03/24 05/03/24 18:59 06:59 18:59 Intake Total 354 240 Output Total 250 200 Balance 104 -200 240 Weight 65.5 kg Intake: Oral 354 240 Output: Urine 250 200 Other: Voiding Method Urinal Urinal # Bowel Movements 1 - Exam GENERAL DESCRIPTION: An elderly male lying in bed in no distress RESPIRATORY SYSTEM: Unlabored breathing , decreased breath sounds at bases HEART: S1 S2 regular rate and rhythm , ABDOMEN: Soft , no tenderness, did have a stage III pressure ulcer to the right gluteal area no cellulitis EXTREMITIES: Left foot and ankle is currently dressed - Labs CBC & Chem 7: 05/04/24 08:54 05/04/24 08:54 Labs: Abnormal Lab Results - Last 24 Hours (Table) 05/03/24 05/03/24 Range/Units 06:38 07:50 WBC 13.7 H (3.8-10.6) k/uL RBC 3.92 L (4.30-5.90) m/uL Hgb 10.2 L D (13.0-17.5) gm/dL Hct 32.7 L (39.0-53.0) % RDW 16.5 H (11.5-15.5) % Neutrophils # 12.5 H (1.3-7.7) k/uL Lymphocytes # 0.8 L (1.0-4.8) k/uL Chloride 114 H (98-107) mmol/L Carbon Dioxide 18 L (22-30) mmol/L Glucose 141 H (74-99) mg/dL Assessment and Plan (1) VRE bacteremia Current Visit: Yes Status: Acute Code(s): R78.81 - BACTEREMIA; B95.2 - ENTEROCOCCUS THE CAUSE OF DISEASES CLASSIFIED ELSEWHERE; Z16.21 - RESISTANCE TO VANCOMYCIN SNOMED Code(s): 4235212296 (2) Foot osteomyelitis, left Current Visit: Yes Status: Acute Code(s): M86.9 - OSTEOMYELITIS, UNSPECIFIED SNOMED Code(s): 1045134920687427 Plan: 1patient with VRE bacteremia source likely PICC line which has been discontinued currently waiting for the PICC line tip as well as repeat blood cultures to be finalized, patient is on Zyvox 2patient with a left lateral malleolar wound as well as wound to the left big toe await further recommendation from vascular surgery patient is being treated with Zosyn 3patient did have a stage III right gluteal wound local wound care with Medihoney followed by moist dressing keep the area of the pressure Dictation was produced using [employer] dictation software. please excuse any grammatical, word or spelling errors. Time with Patient: Less than 30
--- NOTE | 2024-05-04 12:41 | P.PN ---
Subjective Progress Note Date: 05/04/24 Principal diagnosis: Reason for follow-up is VRE bacteremia and left lateral malleolar osteomyelitis Patient is a 68-year-old male with multiple comorbidities he did have a left lateral malleolar osteomyelitis diagnosed back in March culture positive for E. coli Enterobacter for which the patient was treated with Zosyn patient subsequently left the [facility] and was not clear he was given antibiotics at home presenting to the hospital with decreased level of responsiveness has been diagnosed with VRE bacteremia likely related to the PICC line which has been dis continued and did have extensive wound to the left lateral malleolus as well as left big toe On today's evaluation that is 05/04/2024, the patient continues to be afebrile, the patient is on room air and breathing comfortably, the Pt denies having any chest pain or cough, the patient denies having any abdominal pain no vomiting or any diarrhea has been reported by the nursing staff, no worsening pain to the left leg wound patient concerned about his leg being cut off. Patient white count is 14 creatinine 0.91 Objective - Vital Signs Vital signs: Vital Signs Temp 98.4 F 05/04/24 11:42 Pulse 55 L 05/04/24 11:42 Resp 16 05/04/24 11:42 BP 136/91 05/04/24 11:42 Pulse Ox 98 05/04/24 11:42 FiO2 Intake & Output 05/03/24 05/04/24 05/04/24 18:59 06:59 18:59 Intake Total 240 240 360 Output Total 360 Balance 240 -120 360 Weight 66.6 kg Intake: Oral 240 240 360 Output: Urine 360 Other: Voiding Method Urinal Urinal Urinal # Voids 1 - Exam GENERAL DESCRIPTION: An elderly male lying in bed in no distress RESPIRATORY SYSTEM: Unlabored breathing , decreased breath sounds at bases HEART: S1 S2 regular rate and rhythm , ABDOMEN: Soft , no tenderness, did have a stage III pressure ulcer to the right gluteal area no cellulitis EXTREMITIES: Left foot and ankle is currently dressed - Labs CBC & Chem 7: 05/04/24 08:54 05/04/24 08:54 Labs: Abnormal Lab Results - Last 24 Hours (Table) 05/04/24 05/04/24 Range/Units 08:54 08:54 WBC 14.0 H (3.8-10.6) k/uL Hgb 11.2 L (13.0-17.5) gm/dL Hct 35.4 L (39.0-53.0) % RDW 16.2 H (11.5-15.5) % Neutrophils # 12.0 H (1.3-7.7) k/uL Chloride 111 H (98-107) mmol/L Carbon Dioxide 20 L (22-30) mmol/L Glucose 156 H (74-99) mg/dL Assessment and Plan (1) VRE bacteremia Current Visit: Yes Status: Acute Code(s): R78.81 - BACTEREMIA; B95.2 - ENT EROCOCCUS THE CAUSE OF DISEASES CLASSIFIED ELSEWHERE; Z16.21 - RESISTANCE TO VANCOMYCIN SNOMED Code(s): 8693407008 (2) Foot osteomyelitis, left Current Visit: Yes Status: Acute Code(s): M86.9 - OSTEOMYELITIS, UNSPECIFIED SNOMED Code(s): 2660204142320858 Plan: 1patient with VRE bacteremia source likely PICC line which has been discontinued currently waiting for the PICC line tip as well as repeat blood cultures to be finalized, patient is on Zyvox 2patient did have a stage III right gluteal wound local wound care with Medihoney followed by moist dressing keep the area of the pressure 3-patient with a left lateral malleolar wound as well as wound to the left big toe, vascular surgeon recommending left AKA scheduled for tomorrow covered with Zosyn Dictation was produced using [employer] dictation software. please excuse any grammatical, word or spelling errors. Time with Patient: Less than 30
[2024-05-04] MEDS ORDERED: DEXTROSE 50% SYRINGE 50 ML IVP PRN ×2 (21:43)
--- NOTE | 2024-05-04 21:46 | P.PN ---
Subjective Progress Note Date: 05/04/24 Pleasant 68-year-old male who had outpatient therapy of a left malleolar wound. Wound to the left arredondo as well as the right great toe. There is concern for gangrenous changes in a patient with peripheral arterial disease. Vascular surgery was consulted to evaluate this patient for possible amputation of the right great toe and also surgical debridement of the left ankle wound. ID has been following closely. We are unable to locate the left ankle wound culture at this time and will need surgical cultures taken during debridement. He had positive blood cultures for VRE. Per lab the most recent blood cultures are negative as well as the PICC line tip. 05/03/2024 Patient is seen and evaluated in follow-up with infectious disease following. Patient maintained on antibiotics and will likely transition to oral. Vascular surgery consulted to evaluate for possible amputation of the right great toe and also possible surgical debridement of the left arredondo wound. Patient continues to have some lower extremity swelling more so on the left and reports his pain is 7/10 on the pain scale. Patient with significant weakness working on going to [facility] and would like to go to [facility]. Will await vascular surgery consultation and evaluation to consider discharge planning moving forward. Patient is cur rently afebrile. Patient will require insurance authorization as well once discharge planning is in progress. 05/04/2024 Patient is evaluated in follow up today on the medical floor. He is scheduled to undergo left above the knee amputation tomorrow. Abdominal ultrasound was completed yesterday with no evidence of obstructive uropathy gallbladder is WNL. Renal function WNL. Review of Systems Constitutional: Denied any fatigue denied any fever. Cardio vascular: denied any chest pain, palpitations Gastrointestinal: denied any nausea, vomiting, diarrhea Pulmonary: Denied any shortness of breath cough Neurologic denied any new focal deficits All inpatient medications were reviewed and appropriate changes in these medications as dictated in the interval history and assessment and plan. PHYSICAL EXAMINATION: GENERAL: The patient is alert and oriented x3, not in any acute distress. Well developed, well nourished. HEENT: Pupils are round and equally reacting to light. EOMI. No scleral icterus. No conjunctival pallor. Normocephalic, atraumatic. No pharyngeal erythema. No thyromegaly. CARDIOVASCULAR: S1 and S2 present. No murmurs, rubs, or gallops. PULMONARY: Chest is clear to auscultation, no wheezing or crackles. ABDOMEN: Soft, nontender, nondistended, normoactive bowel sounds. No palpable organomegaly. MUSCULOSKELETAL: No joint swelling or deformity. EXTREMITIES: No cyanosis, clubbing, or pedal edema. NEUROLOGICAL: Gross neurological examination did not reveal any focal deficits. Diffusely weak. SKIN: No rashes. Left malleolar wound, left arredondo wound. Right great toe wound. Assessment: -VRE bacteremia secondary to PICC line, has been discontinued. -Left malleolar wound underlying osteomyelitis and sepsis, present on admission, needs surgical debridement and deep tissue cultures. Awaiting vascular surgery consult -Episode of VTach/SVT resolved -Chronic heart failure with reduced EF 25-30%. -NSTEMI type 2 -Coronary artery disease with previous CABG and multiple stents -Acute kidney injury, resolved. -Hx of peripheral arterial disease with prior bypass -Diabetes mellitus type 2 -History of stroke 2020 with left sided deficits -Hx hypertension -Hyperlipidemia -Hx of peripheral neuropathy GI prophylaxis DVT prophylaxis Full Code Plan -Continue on Zyvox at this time, further antibiotic recommendations per ID -Still waiting for left malleolar culture; will need to be repeated if plan is for surgical debridement. -Patient scheduled to under left above the knee amputation; and also debridement and possible amputation of the right great toe. -Continues on IV zosyn also -Cardiology has signed off at this time -Continue aspirin/brilinta -Blood pressure has been dropping into the 100s systolic. Lisinopril has been decreased with parameters. Discontinue hydralazine. -Monitor renal function and repeat labs in the AM -PT/OT consultation in place as plan is for patient to go to [facility] once discharge planning is in progress. Patient will also require insurance authorization. The impression and plan of care has been dictated by Caprice Stern Nurse Practitioner as directed. Dr. Rebecca MD I have performed a history and physical examination and medical decision making of this patient, discussed the same with the dictator, and agree with the dictators assessment and plan as written, documented as a scribe. Based on total visit time, I have performed more than 50% of this visit. Objective - Vital Signs Vital signs: Vital Signs Temp 98.8 F 05/04/24 08:30 Pulse 75 05/04/24 08:30 Resp 16 05/04/24 08:30 BP 112/72 05/04/24 08:30 Pulse Ox 100 05/04/24 08:30 FiO2 Intake & Output 05/03/24 05/04/24 05/04/24 18:59 06:59 18:59 Intake Total 240 240 Output Total 360 Balance 240 -120 Weight 66.6 kg Intake: Oral 240 240 Output: Urine 360 Other: Voiding Method Urinal Urinal Urinal # Voids 1 - Labs CBC & Chem 7: 05/04/24 08:54 05/04/24 08:54 Assessment and Plan Time with Patient: Less than 30
[2024-05-05 06:11] LABS: Glucose,Whole Blood 178 mg/dL (70-110)
[2024-05-05] MEDS: INSULIN ASPART (NovoLOG) 100 UNIT/ML VIAL SQ SCH (07:08)
[2024-05-05 07:16] LABS: African American GFR (CKD) >90 (>60 ml/min/1.73 sqM); Anion Gap 5 mmol/L; Blood Urea Nitrogen 16 mg/dL (9-20); Calcium 8.6 mg/dL (8.4-10.2); Carbon Dioxide 20 mmol/L (22-30); Chloride 112 mmol/L (98-107); Glucose 143 mg/dL (74-99); Non-African American GFR(CKD) 79 (>60 ml/min/1.73 sqM); Potassium 4.4 mmol/L (3.5-5.1); Sodium 137 mmol/L (137-145)
[2024-05-05] MEDS: lisinopriL 5 MG TAB PO SCH (09:51)
[2024-05-05 11:49] LABS: Glucose,Whole Blood 151 mg/dL (70-110)
--- NOTE | 2024-05-05 12:18 | P.PN ---
Subjective Progress Note Date: 05/05/24 Principal diagnosis: Reason for follow-up is VRE bacteremia and left lateral malleolar osteomyelitis Patient is a 68-year-old male with multiple comorbidities he did have a left lateral malleolar osteomyelitis diagnosed back in March culture positive for E. coli Enterobacter for which the patient was treated with Zosyn patient subsequently left the [facility] and was not clear he was given antibiotics at home presenting to the hospital with decreased level of responsiveness has been diagnosed with VRE bacteremia likely related to the PICC line which has been dis continued and did have extensive wound to the left lateral malleolus as well as left big toe On today's evaluation that is 05/05/2024, Patient is afebrile patient is currently on room air and denies having any shortness of breath, the patient denies any chest pain or cough, the patient denies any nausea vomiting did not have any abdominal pain and no diarrhea, denies any worsening pain to the left lower extremity. Patient did have a creatinine 0.97 with CBC in the chart today Objective - Vital Signs Vital signs: Vital Signs Temp 97.6 F 05/05/24 09:09 Pulse 95 05/05/24 11:18 Resp 16 05/05/24 11:18 BP 120/84 05/05/24 11:18 Pulse Ox 100 05/05/24 11:18 FiO2 Intake & Output 05/04/24 05/05/24 05/05/24 18:59 06:59 18:59 Intake Total 960 Output Total 800 475 300 Balance 160 -475 -300 Weight 66 kg 66 kg Intake: Oral 960 Output: Urine 800 475 300 Other: Voiding Method Urinal Urinal Urinal # Voids 2 # Bowel Movements 2 1 1 - Exam GENERAL DESCRIPTION: An elderly male lying in bed in no distress RESPIRATORY SYSTEM: Unlabored breathing , decreased breath sounds at bases HEART: S1 S2 regular rate and rhythm , ABDOMEN: Soft , no tenderness, did have a stage III pressure ulcer to the right gluteal area no cellulitis EXTREMITIES: Left foot and ankle is currently dressed - Labs CBC & Chem 7: 05/04/24 08:54 05/05/24 06:27 Labs: Abnormal Lab Results - Last 24 Hours (Table) 05/05/24 05/05/24 05/05/24 Range/Units 06:10 06:27 06:27 Chloride 112 H (98-107) mmol/L Carbon Dioxide 20 L (22-30) mmol/L Glucose 143 H (74-99) mg/dL POC Glucose (mg/dL) 178 H (70-110) mg/dL Hemoglobin A1c 6.8 H (<=6.0) % 05/05/24 Range/Units 11:48 Chloride (98-107) mmol/L Carbon Dioxide (22-30) mmol/L Glucose (74-99) mg/dL POC Glucose (mg/dL) 151 H (70-110) mg/dL Hemoglobin A1c (<=6.0) % Assessment and Plan (1) VRE bacteremia Current Visit: Yes Status: Acute Code(s): R78.81 - BACTEREMIA; B95.2 - ENTEROCOCCUS THE CAUSE OF DISEASES CLASSIFIED ELSEWHERE; Z16.21 - RESISTANCE TO VANCOMYCIN SNOMED Code(s): 6816322985 (2) Foot osteomyelitis, left Current Visit: Yes Status: Acute Code(s): M86.9 - OSTEOMYELITIS, UNSPECIFIED SNOMED Code(s): 9772192732858389 Plan: 1patient with VRE bacteremia source likely PICC line which has been discontinued currently waiting for the PICC line tip as well as repeat blood cultures to be finalized, patient is on Zyvox 2patient did have a stage III right gluteal wound local wound care with Medihoney followed by moist dressing keep the area of the pressure 3-patient with a left lateral malleolar wound as well as wound to the left big toe, vascular surgeon recommending left AKA to be the patient seem to have increased scheduled for this afternoon patient is covered with Zosyn may not need to be on long-term IV antibiotics after amputation, patient question concern answered Dictation was produced using [employer] dictation software. please excuse any grammatical, word or spelling errors. Time with Patient: Less than 30
[2024-05-05] MEDS: IV FLUID CONTINUATION 700 ML IV ONE (13:56)
[2024-05-05 14:08] LABS: Glucose,Whole Blood 141 mg/dL (70-110)
[2024-05-05] MEDS: ONDANSETRON 4 MG/2 ML VIAL IVP PRN (14:34)
[2024-05-05] MEDS: DEXAMETHASONE SOD PHOSPHATE 4 MG/ML 1 ML VIAL IVP STA (14:34)
[2024-05-05] MEDS ORDERED: VASOPRESSIN 20 UNIT/ML 1 ML VIAL ONE (14:53)
[2024-05-05] MEDS ORDERED: LIDOCAINE 1% INJ 10MG/ML (20 ML MDV) ONE (14:53)
[2024-05-05] MEDS ORDERED: ROCURONIUM 10 MG/ML (5 ML VIAL) IV ONE (14:53)
[2024-05-05] MEDS ORDERED: NEOSTIGMINE 1 MG/ML 10 ML VIAL ONE (14:53)
[2024-05-05] MEDS ORDERED: PHENYLEPHRINE 10 MG/ML VIAL ONE (14:53)
[2024-05-05] MEDS ORDERED: fentaNYL (PF) 50 MCG/ML 2 ML AMP ONE (14:53)
[2024-05-05] MEDS ORDERED: PROPOFOL 10 MG/ML 20 ML VIAL IV ONE (14:53)
[2024-05-05] MEDS ORDERED: GLYCOPYRROLATE 0.2 MG/ML 2 ML VIAL ONE (14:53)
--- NOTE | 2024-05-05 15:55 | P.PN ---
Subjective Progress Note Date: 05/05/24 Pleasant 68-year-old male who had outpatient therapy of a left malleolar wound. Wound to the left arredondo as well as the right great toe. There is concern for gangrenous changes in a patient with peripheral arterial disease. Vascular surgery was consulted to evaluate this patient for possible amputation of the right great toe and also surgical debridement of the left ankle wound. ID has been following closely. We are unable to locate the left ankle wound culture at this time and will need surgical cultures taken during debridement. He had positive blood cultures for VRE. Per lab the most recent blood cultures are negative as well as the PICC line tip. 05/03/2024 Patient is seen and evaluated in follow-up with infectious disease following. Patient maintained on antibiotics and will likely transition to oral. Vascular surgery consulted to evaluate for possible amputation of the right great toe and also possible surgical debridement of the left arredondo wound. Patient continues to have some lower extremity swelling more so on the left and reports his pain is 7/10 on the pain scale. Patient with significant weakness working on going to [facility] and would like to go to [facility]. Will await vascular surgery consultation and evaluation to consider discharge planning moving forward. Patient is cur rently afebrile. Patient will require insurance authorization as well once discharge planning is in progress. 05/04/2024 Patient is evaluated in follow up today on the medical floor. He is scheduled to undergo left above the knee amputation tomorrow. Abdominal ultrasound was completed yesterday with no evidence of obstructive uropathy gallbladder is WNL. Renal function WNL. 05/05/2024 Patient is evaluated in follow-up on the medical floor he is scheduled to undergo left [id number] amputation today as well as right toe debridement and possible amputation. His renal function remains normal. Hemoglobin A1c is 6.8. Blood pressure better at 120/85. Review of Systems Constitutional: Denied any fatigue denied any fever. Cardio vascular: denied any chest pain, palpitations Gastrointestinal: denied any nausea, vomiting, diarrhea Pulmonary: Denied any shortness of breath cough Neurologic denied any new focal deficits All inpatient medications were reviewed and appropriate changes in these medications as dictated in the interval history and assessment and plan. PHYSICAL EXAMINATION: GENERAL: The patient is alert and oriented x3, not in any acute distress. Well developed, well nourished. HEENT: Pupils are round and equally reacting to light. EOMI. No scleral icterus. No conjunctival pallor. Normocephalic, atraumatic. No pharyngeal erythema. No thyromegaly. CARDIOVASCULAR: S1 and S2 present. No murmurs, rubs, or gallops. PULMONARY: Chest is clear to auscultation, no wheezing or crackles. ABDOMEN: Soft, nontender, nondistended, normoactive bowel sounds. No palpable o rganomegaly. MUSCULOSKELETAL: No joint swelling or deformity. EXTREMITIES: No cyanosis, clubbing, or pedal edema. NEUROLOGICAL: Gross neurological examination did not reveal any focal deficits. Diffusely weak. SKIN: No rashes. Left malleolar wound, left arredondo wound. Right great toe wound. Assessment: -VRE bacteremia secondary to PICC line, has been discontinued. -Left malleolar wound underlying osteomyelitis and sepsis, present on admission, needs surgical debridement and deep tissue cultures. Awaiting vascular surgery consult -Episode of VTach/SVT resolved -Chronic heart failure with reduced EF 25-30%. -NSTEMI type 2 -Coronary artery disease with previous CABG and multiple stents -Acute kidney injury, resolved. -Hx of peripheral arterial disease with prior bypass -Diabetes mellitus type 2 -History of stroke 2020 with left sided deficits -Hx hypertension -Hyperlipidemia -Hx of peripheral neuropathy GI prophylaxis DVT prophylaxis Full Code Plan -Continue on Zyvox at this time, further antibiotic recommendations per ID -Still waiting for left malleolar culture; will need to be repeated if plan is for surgical debridement. -Patient scheduled to under left above the knee amputation; and also debridement and possible amputation of the right great toe. -Continues on IV zosyn also -Cardiology has signed off at this time -Continue aspirin/brilinta -Blood pressure has been dropping into the 100s systolic. Lisinopril has been decreased with parameters. Discontinue hydralazine. -Monitor renal function and repeat labs in the AM -PT/OT consultation in place as plan is for patient to go to [facility] once discharge planning is in progress. Patient will also require insurance authorization. The impression and plan of care has been dictated by Caprice Stern Nurse Practitioner as directed. Dr. Rebecca MD I have performed a history and physical examination and medical decision making of this patient, discussed the same with the dictator, and agree with the dictators assessment and plan as written, documented as a scribe. Based on total visit time, I have performed more than 50% of this visit. Objective - Vital Signs Vital signs: Vital Signs Temp 97.6 F 05/05/24 09:09 Pulse 100 05/05/24 09:09 Resp 16 05/05/24 09:09 BP 137/89 05/05/24 09:09 Pulse Ox 100 05/05/24 09:09 FiO2 Intake & Output 05/04/24 05/05/24 05/05/24 18:59 06:59 18:59 Intake Total 960 Output Total 800 475 Balance 160 -475 Weight 66 kg 66 kg Intake: Oral 960 Output: Urine 800 475 Other: Voiding Method Urinal Urinal # Voids 2 # Bowel Movements 2 1 - Labs CBC & Chem 7: 05/04/24 08:54 05/05/24 06:27 Labs: Abnormal Lab Results - Last 24 Hours (Table) 05/04/24 05/04/24 05/05/24 Range/Units 08:54 08:54 06:10 WBC 14.0 H (3.8-10.6) k/uL Hgb 11.2 L (13.0-17.5) gm/dL Hct 35.4 L (39.0-53.0) % RDW 16.2 H (11.5-15.5) % Neutrophils # 12.0 H (1.3-7.7) k/uL Chloride 111 H (98-107) mmol/L Carbon Dioxide 20 L (22-30) mmol/L Glucose 156 H (74-99) mg/dL POC Glucose (mg/dL) 178 H (70-110) mg/dL 05/05/24 Range/Units 06:27 WBC (3.8-10.6) k/uL Hgb (13.0-17.5) gm/dL Hct (39.0-53.0) % RDW (11.5-15.5) % Neutrophils # (1.3-7.7) k/uL Chloride 112 H (98-107) mmol/L Carbon Dioxide 20 L (22-30) mmol/L Glucose 143 H (74-99) mg/dL POC Glucose (mg/dL) (70-110) mg/dL Assessment and Plan Time with Patient: Less than 30
[2024-05-05] MEDS: LACTATED RINGERS 1,000 ML IV ONE (16:35)
--- NOTE | 2024-05-05 17:03 | P.OP ---
Date of Procedure: 05/05/24 Description of Procedure: Preoperative diagnosis: Chronic left lower extremity ischemia, nonhealing wound, infected gangrene left lower extremity, chronic nonhealing wound right lower extremity, dry gangrene Postoperative diagnosis: Same Procedure: Left above-knee amputation Right lower extremity great toe partial amputation Surgeon: Maggi Velez D.O. Anesthesia: General EBL: 20 IV fluids: See records Urine output: Not measured Drains: None Complications: None immediately apparent Condition: Stable to recovery Operative indication and findings: Patient is a 68-year-old male with severe peripheral arterial disease previously recommended on multiple occasions for second opinion at [facility] for potential options regarding revascularization given the severity of his disease. Discussed that the only option to offer at this time here would be above-knee amputations. He stated he was going to do so however failed to present for that opinion and recently did present to this hospital with worsening of his foot wound and infection therefore at this time above-knee amputation was recommended on the left as well as debridement possible amputation on the right, the toe appears to be the area on the right of concern with the area of distal necrosis at the tip of the toe. Procedure in detail: The patient was taken to the operative suite and placed in supine position. A preprocedure timeout was performed, all parties were in agreement. The right foot was prepped after adequate anesthesia, initially starting with the right lower extremity, the great toe eschar was encircled with a scalpel and carried down to the subcutaneous tissue with scalpel. There was very minimal bleeding noted. After excision of the majority of the necrotic tissue did appear to course down to the level of bone therefore at the level of the distal interphalangeal joint the toe was transected and amputation was performed. The areas and copiously irrigated and wound reapproximation with 3-0 nylon. Attention was then turned towards the the left lower extremity was prepped and draped in usual sterile fashion. Skin marker was utilized and the incision was marked approximately 5 cm proximal to the knee joint. Skin incision was performed and deepened through the subcutaneous tissues to the muscular fascia. The saphenous vein was identified and ligated with 2-0 silk and divided. The muscle groups of the anterior and medial thigh were divided with electrocautery at the same level of the skin incision. The neurovascular bundle was identified on the medial aspect of the thigh. The artery and veins were isolated and suture ligated using 2-0 silk ligature. The sciatic nerve was pulled on stretch and ligated with 2-0 silk tie and divided. The femur was then cleared of its periosteal tissue is elevated roughly 5 cm proximally and was divided with the oscillating saw. The posterior thigh muscles were then divided with electrocautery. The proximal end of the transected femur was smoothed with a rasp. The amputation site was then copiously irrigated. Hemostasis was controlled with electrocautery. The periosteum was reapproximated using interrupted sutures of 2-0 Vicryl. The fascia was reapproximated with interrupted vzreae-zk-[id number] sutures of 2-0 Vicryl. The skin was reapproximated with jeffrey. A dressing with gauze, Kerlix and a bandage were placed. The patient tolerated the procedure well and was transported to PACU in stable condition
[2024-05-05] MEDS: ALBUMIN HUMAN 5% 250 ML in EMPTY BAG 1 BAG IVPB STA ×2 (17:11→17:41)
[2024-05-05 17:19] LABS: Glucose,Whole Blood 180 mg/dL (70-110)
[2024-05-05] MEDS: PHENYLEPHRINE 10 MG/ML VIAL IV ONE (17:19)
[2024-05-05] MEDS: HYDROmorphone 0.5 MG/0.5 ML SYRINGE IVP STA (17:37)
[2024-05-05 17:39] LABS: Anisocytosis Slight; Basophils % (A) 0 %; Eosinophils % (A) 0 %; HCT 29.3 % (39.0-53.0); Hypochromasia Slight; Lymphocytes # (A) 0.7 k/uL (1.0-4.8); Lymphocytes % (A) 4 %; MCH 26.3 pg (25.0-35.0); MCHC 32.5 g/dL (31.0-37.0); MCV 80.8 fL (80.0-100.0); Mean Platelet Volume 9.3; Monocytes # (A) 0.2 k/uL (0-1.0); Monocytes % (A) 1 %; Neutrophils # (A) 17.1 k/uL (1.3-7.7); Neutrophils % (A) 95 %; Platelet Count 296 k/uL (150-450); Poikilocytosis Slight; RBC 3.63 m/uL (4.30-5.90); RDW 16.6 % (11.5-15.5); WBC 18.1 k/uL (3.8-10.6)
[2024-05-05 17:40] LABS: HGB 9.5 gm/dL (13.0-17.5)
[2024-05-05] MEDS: CALCIUM CHLORIDE 100 MG/ML 10 ML SYRINGE IVP STA (17:43)
[2024-05-05] MEDS: HYDROmorphone 0.5 MG/0.5 ML SYRINGE IM STA (18:02)
[2024-05-05 18:08] LABS: Glucose,Whole Blood 190 mg/dL (70-110)
[2024-05-05 20:33] LABS: Glucose,Whole Blood 162 mg/dL (70-110)
[2024-05-05 21:35] LABS: African American GFR (CKD) >90 (>60 ml/min/1.73 sqM); Anion Gap 5 mmol/L; Blood Urea Nitrogen 15 mg/dL (9-20); Calcium 9.6 mg/dL (8.4-10.2); Carbon Dioxide 22 mmol/L (22-30); Chloride 110 mmol/L (98-107); Glucose 149 mg/dL (74-99); Non-African American GFR(CKD) 88 (>60 ml/min/1.73 sqM); Potassium 4.3 mmol/L (3.5-5.1); Sodium 137 mmol/L (137-145)
[2024-05-05] MEDS ORDERED: MELATONIN 5 MG TABLET ONE (23:59)
[2024-05-05] MEDS ORDERED: INSULIN ASPART (NovoLOG) 100 UNIT/ML VIAL SQ ONE (23:59)
[2024-05-05] MEDS ORDERED: LINEZOLID 600 MG TAB ONE (23:59)
[2024-05-05] MEDS ORDERED: GABAPENTIN 300 MG CAP ONE (23:59)
[2024-05-05] MEDS ORDERED: HYDROcodone/APAP 5-325MG 1 EACH TAB ONE (23:59)
[2024-05-05] MEDS ORDERED: DOCUSATE 100 MG CAP ONE (23:59)
[2024-05-05] MEDS ORDERED: PANTOPRAZOLE 40 MG/10 ML VIAL ONE (23:59)
[2024-05-05] MEDS ORDERED: TAMSULOSIN 0.4 MG CAP.ER.24H PO ONE (23:59)
[2024-05-06 00:07] LABS: Glucose,Whole Blood 148 mg/dL (70-110)
[2024-05-06 06:17] LABS: Glucose,Whole Blood 199 mg/dL (70-110)
[2024-05-06 11:16] LABS: Glucose,Whole Blood 215 mg/dL (70-110)
--- NOTE | 2024-05-06 12:26 | P.PN ---
Subjective Progress Note Date: 05/06/24 Status post left iltnp-dnh-qaro amputation. Status post debridement right foot Objective - Vital Signs Vital signs: Vital Signs Temp 98.3 F 05/06/24 08:00 Pulse 96 05/06/24 08:00 Resp 18 05/06/24 08:00 BP 102/52 05/06/24 08:00 Pulse Ox 100 05/06/24 08:00 FiO2 Intake & Output 05/05/24 05/06/24 05/06/24 18:59 06:59 18:59 Intake Total 700 120 Output Total 720 925 Balance -20 -925 120 Weight 66 kg 60.5 kg Intake: IV 700 Oral 120 Output: Urine 700 925 Estimated Blood Loss 20 Other: Voiding Method Urinal Urinal External Catheter # Voids 2 # Bowel Movements 1 - Exam Dressings are taken down. The left above-knee amputation wound is clean, dry and otherwise unremarkable in appearance. The right foot wounds are well debrided with no necrotic tissue identified. Suture line is intact. There is some maceration of the tissue due to heavily moistened dressings. Will replace with Adaptic and dry dressings. - Labs CBC & Chem 7: 05/05/24 17:26 05/05/24 21:10 Labs: Abnormal Lab Results - Last 24 Hours (Table) 05/05/24 05/05/24 05/05/24 Range/Units 14:03 17:17 17:26 WBC 18.1 H (3.8-10.6) k/uL RBC 3.63 L (4.30-5.90) m/uL Hgb 9.5 L D (13.0-17.5) gm/dL Hct 29.3 L (39.0-53.0) % RDW 16.6 H (11.5-15.5) % Neutrophils # 17.1 H (1.3-7.7) k/uL Lymphocytes # 0.7 L (1.0-4.8) k/uL Chloride (98-107) mmol/L Glucose (74-99) mg/dL POC Glucose (mg/dL) 141 H 180 H (70-110) mg/dL 05/05/24 05/05/24 05/05/24 Range/Units 18:07 20:23 21:10 WBC (3.8-10.6) k/uL RBC (4.30-5.90) m/uL Hgb (13.0-17.5) gm/dL Hct (39.0-53.0) % RDW (11.5-15.5) % Neutrophils # (1.3-7.7) k/uL Lymphocytes # (1.0-4.8) k/uL Chloride 110 H (98-107) mmol/L Glucose 149 H (74-99) mg/dL POC Glucose (mg/dL) 190 H 162 H (70-110) mg/dL 05/06/24 05/06/24 Range/Units 06:15 11:13 WBC (3.8-10.6) k/uL RBC (4.30-5.90) m/uL Hgb (13.0-17.5) gm/dL Hct (39.0-53.0) % RDW (11.5-15.5) % Neutrophils # (1.3-7.7) k/uL Lymphocytes # (1.0-4.8) k/uL Chloride (98-107) mmol/L Glucose (74-99) mg/dL POC Glucose (mg/dL) 199 H 215 H (70-110) mg/dL Assessment and Plan Assessment: 1: Status post left gsvvb-iqx-cvsg amputation. 2: Status post debridement right foot. Plan: Dressings replaced. The right foot is dressed with Adaptic and Kerlix. Curlex preceded by placement of Adaptic to the left uzgvi-dan-zceb amputation wound. Time with Patient: Less than 30
[2024-05-06 12:34] LABS: Anisocytosis Slight; Basophils % (A) 0 %; Eosinophils # (A) 0.1 k/uL (0-0.7); Eosinophils % (A) 1 %; HCT 23.4 % (39.0-53.0); Hypochromasia Moderate; Lymphocytes # (A) 1.1 k/uL (1.0-4.8); Lymphocytes % (A) 7 %; MCHC 33.1 g/dL (31.0-37.0); MCV 81.7 fL (80.0-100.0); Mean Platelet Volume 8.7; Monocytes # (A) 0.4 k/uL (0-1.0); Monocytes % (A) 2 %; Neutrophils # (A) 13.3 k/uL (1.3-7.7); Neutrophils % (A) 89 %; Platelet Count 223 k/uL (150-450); Poikilocytosis Slight; RBC 2.86 m/uL (4.30-5.90); RDW 16.7 % (11.5-15.5); WBC 14.9 k/uL (3.8-10.6)
[2024-05-06 13:00] LABS: HGB 7.7 gm/dL (13.0-17.5)
[2024-05-06 13:28] LABS: African American GFR (CKD) >90 (>60 ml/min/1.73 sqM); Anion Gap 3 mmol/L; Blood Urea Nitrogen 14 mg/dL (9-20); Calcium 8.7 mg/dL (8.4-10.2); Carbon Dioxide 23 mmol/L (22-30); Chloride 109 mmol/L (98-107); Glucose 174 mg/dL (74-99); Non-African American GFR(CKD) 88 (>60 ml/min/1.73 sqM); Sodium 135 mmol/L (137-145)
--- NOTE | 2024-05-06 15:10 | P.PN ---
Subjective Progress Note Date: 05/06/24 Principal diagnosis: Reason for follow-up is VRE bacteremia and left lateral malleolar osteomyelitis Patient is a 68-year-old male with multiple comorbidities he did have a left lateral malleolar osteomyelitis diagnosed back in March culture positive for E. coli Enterobacter for which the patient was treated with Zosyn patient subsequently left the [facility] and was not clear he was given antibiotics at home presenting to the hospital with decreased level of responsiveness has been diagnosed with VRE bacteremia likely related to the PICC line which has been dis continued and did have extensive wound to the left lateral malleolus as well as left big toe, patient is status post Left above-knee amputation and Right lower extremity great toe partial amputation completed by vascular surgery on 05/05/2024. On today's evaluation that is 05/06/2024, patient has been afebrile, patient is breathing comfortably and is currently on room air, patient denies having any significant cough no chest pain shortness of breath, patient denies nausea vomiting or diarrhea and no abdominal pain, pain to the left BKA stump is currently controlled. Patient white was 14.8, creatinine 0.84 Objective - Vital Signs Vital signs: Vital Signs Temp 97.9 F 05/06/24 12:00 Pulse 86 05/06/24 12:00 Resp 18 05/06/24 12:00 BP 93/58 05/06/24 12:00 Pulse Ox 97 05/06/24 12:00 FiO2 Intake & Output 05/05/24 05/06/24 05/06/24 18:59 06:59 18:59 Intake Total 700 240 Output Total 720 925 200 Balance -20 -925 40 Weight 66 kg 60.5 kg Intake: IV 700 Oral 240 Output: Urine 700 925 200 Estimated Blood Loss 20 Other: Voiding Method Urinal Urinal External Catheter # Voids 2 # Bowel Movements 1 - Exam GENERAL DESCRIPTION: An elderly male lying in bed in no distress RESPIRATORY SYSTEM: Unlabored breathing , decreased breath sounds at bases HEART: S1 S2 regular rate and rhythm , ABDOMEN: Soft , no tenderness, EXTREMITIES: Left AKA stump and right foot is currently dressed - Labs CBC & Chem 7: 05/06/24 12:04 05/06/24 12:04 Labs: Abnormal Lab Results - Last 24 Hours (Table) 05/05/24 05/05/24 05/05/24 Range/Units 17:17 17:26 18:07 WBC 18.1 H (3.8-10.6) k/uL RBC 3.63 L (4.30-5.90) m/uL Hgb 9.5 L D (13.0-17.5) gm/dL Hct 29.3 L (39.0-53.0) % RDW 16.6 H (11.5-15.5) % Neutrophils # 17.1 H (1.3-7.7) k/uL Lymphocytes # 0.7 L (1.0-4.8) k/uL Sodium (137-145) mmol/L Chloride (98-107) mmol/L Glucose (74-99) mg/dL POC Glucose (mg/dL) 180 H 190 H (70-110) mg/dL 05/05/24 05/05/24 05/06/24 Range/Units 20:23 21:10 06:15 WBC (3.8-10.6) k/uL RBC (4.30-5.90) m/uL Hgb (13.0-17.5) gm/dL Hct (39.0-53.0) % RDW (11.5-15.5) % Neutrophils # (1.3-7.7) k/uL Lymphocytes # (1.0-4.8) k/uL Sodium (137-145) mmol/L Chloride 110 H (98-107) mmol/L Glucose 149 H (74-99) mg/dL POC Glucose (mg/dL) 162 H 199 H (70-110) mg/dL 05/06/24 05/06/24 05/06/24 Range/Units 11:13 12:04 12:04 WBC 14.9 H (3.8-10.6) k/uL RBC 2.86 L (4.30-5.90) m/uL Hgb 7.7 L D (13.0-17.5) gm/dL Hct 23.4 L (39.0-53.0) % RDW 16.7 H (11.5-15.5) % Neutrophils # 13.3 H (1.3-7.7) k/uL Lymphocytes # (1.0-4.8) k/uL Sodium 135 L (137-145) mmol/L Chloride 109 H (98-107) mmol/L Glucose 174 H (74-99) mg/dL POC Glucose (mg/dL) 215 H (70-110) mg/dL Assessment and Plan (1) VRE bacteremia Current Visit: Yes Status: Acute Code(s): R78.81 - BACTEREMIA; B95.2 - ENTEROCOCCUS THE CAUSE OF DISEASES CLASSIFIED ELSEWHERE; Z16.21 - RESISTANCE TO VANCOMYCIN SNOMED Code(s): 1217919855 (2) Foot osteomyelitis, left Current Visit: Yes Status: Acute Code(s): M86.9 - OSTEOMYELITIS, UNSPECIFIED SNOMED Code(s): 7387329528325869 Plan: 1patient with VRE bacteremia source likely PICC line which has been discontinued currently waiting for the PICC line tip as well as repeat blood cultures to be finalized, patient is on Zyvox 2patient did have a stage III right gluteal wound local wound care with Medihoney followed by moist dressing keep the area of the pressure 3-patient is status post left qqqpc-hkz-[id number] amputation and partial potation of the right big toe with infected port removal he will not need long-term IV antibiotics on discharge for now continue with Zosyn for few days while inpatient Dictation was produced using [employer] dictation software. please excuse any grammatical, word or spelling errors. Time with Patient: Less than 30
[2024-05-06 16:05] LABS: Glucose,Whole Blood 78 mg/dL (70-110)
[2024-05-06 20:09] LABS: Glucose,Whole Blood 168 mg/dL (70-110)
[2024-05-06] MEDS: INSULIN ASPART (NovoLOG) 100 UNIT/ML VIAL SQ SCH (20:15)
[2024-05-07] MEDS: PANTOPRAZOLE 40 MG/10 ML VIAL ONE (00:53)
[2024-05-07 06:06] LABS: Glucose,Whole Blood 161 mg/dL (70-110)
[2024-05-07 08:23] LABS: Anisocytosis Slight; Basophils % (A) 0 %; Eosinophils # (A) 0.1 k/uL (0-0.7); Eosinophils % (A) 1 %; HCT 28.1 % (39.0-53.0); HGB 8.7 gm/dL (13.0-17.5); Hypochromasia Marked; Lymphocytes % (A) 8 %; MCH 25.4 pg (25.0-35.0); MCV 82.1 fL (80.0-100.0); Mean Platelet Volume 7.9; Monocytes # (A) 0.3 k/uL (0-1.0); Monocytes % (A) 2 %; Neutrophils % (A) 88 %; Platelet Count 258 k/uL (150-450); RBC 3.43 m/uL (4.30-5.90); RDW 16.7 % (11.5-15.5); WBC 12.5 k/uL (3.8-10.6)
[2024-05-07 08:44] LABS: African American GFR (CKD) >90 (>60 ml/min/1.73 sqM); Anion Gap 4 mmol/L; Blood Urea Nitrogen 12 mg/dL (9-20); Calcium 8.5 mg/dL (8.4-10.2); Carbon Dioxide 23 mmol/L (22-30); Chloride 108 mmol/L (98-107); Glucose 130 mg/dL (74-99); Non-African American GFR(CKD) >90 (>60 ml/min/1.73 sqM); Sodium 135 mmol/L (137-145)
[2024-05-07 08:45] LABS: Potassium 4.3 mmol/L (3.5-5.1)
--- NOTE | 2024-05-07 09:36 | P.PN ---
Subjective Progress Note Date: 05/06/24 Pleasant 68-year-old male who had outpatient therapy of a left malleolar wound. Wound to the left arredondo as well as the right great toe. There is concern for gangrenous changes in a patient with peripheral arterial disease. Vascular surgery was consulted to evaluate this patient for possible amputation of the right great toe and also surgical debridement of the left ankle wound. ID has been following closely. We are unable to locate the left ankle wound culture at this time and will need surgical cultures taken during debridement. He had positive blood cultures for VRE. Per lab the most recent blood cultures are negative as well as the PICC line tip. 05/03/2024 Patient is seen and evaluated in follow-up with infectious disease following. Patient maintained on antibiotics and will likely transition to oral. Vascular surgery consulted to evaluate for possible amputation of the right great toe and also possible surgical debridement of the left arredondo wound. Patient continues to have some lower extremity swelling more so on the left and reports his pain is 7/10 on the pain scale. Patient with significant weakness working on going to [facility] and would like to go to [facility]. Will await vascular surgery consultation and evaluation to consider discharge planning moving forward. Patient is cur rently afebrile. Patient will require insurance authorization as well once discharge planning is in progress. 05/04/2024 Patient is evaluated in follow up today on the medical floor. He is scheduled to undergo left above the knee amputation tomorrow. Abdominal ultrasound was completed yesterday with no evidence of obstructive uropathy gallbladder is WNL. Renal function WNL. 05/05/2024 Patient is evaluated in follow-up on the medical floor he is scheduled to undergo left bmlhz-onu-szth amputation today as well as right toe debridement and possible amputation. His renal function remains normal. Hemoglobin A1c is 6.8. Blood pressure better at 120/85. 05/06/2024 Patient is postoperative day #1 left above the knee amputation and partial right great toe amputation. He states pain is fairly controlled at this time. He continues on IV zosyn. White count is 12.5. hgb 8.7. Sodium 135. BP 148/72. Review of Systems Constitutional: Denied any fatigue denied any fever. Cardio vascular: denied any chest pain, palpitations Gastrointestinal: denied any nausea, vomiting, diarrhea Pulmonary: Denied any shortness of breath cough Neurologic denied any new focal deficits All inpatient medications were reviewed and appropriate changes in these medications as dictated in the interval history and assessment and plan. PHYSICAL EXAMINATION: GENERAL: The patient is alert and oriented x3, not in any acute distress. Well developed, well nourished. HEENT: Pupils are round and equally reacting to light. EOMI. No scleral icterus. No conjunctival pallor. Normocephalic, atraumatic. No pharyngeal erythema. No thyromegaly. CARDIOVASCULAR: S1 and S2 present. No murmurs, rubs, or gallops. PULMONARY: Chest is clear to auscultation, no wheezing or crackles. ABDOMEN: Soft, nontender, nondistended, normoactive bowel sounds. No palpable organomegaly. MUSCULOSKELETAL: No joint swelling or deformity. EXTREMITIES: No cyanosis, clubbing, or pedal edema. NEUROLOGICAL: Gross neurological examination did not reveal any focal deficits. Diffusely weak. SKIN: No rashes. Left malleolar wound, left arredondo wound. Right great toe wound. Assessment: -VRE bacteremia secondary to PICC line, has been discontinued. -Left malleolar wound underlying osteomyelitis and sepsis, present on admission s/p Left AKA and right great toe partial amputation secondary to gangrenous right great toe. -Episode of VTach/SVT resolved -Chronic heart failure with reduced EF 25-30%. -NSTEMI type 2 -Coronary artery disease with previous CABG and multiple stents -Acute kidney injury, resolved. -Hx of peripheral arterial disease with prior bypass -Diabetes mellitus type 2 -History of stroke 2020 with left sided deficits -Hx hypertension -Hyperlipidemia -Hx of peripheral neuropathy GI prophylaxis DVT prophylaxis Full Code Plan -Continue on Zyvox at this time, further antibiotic recommendations per ID -Still waiting for left malleolar culture -Continues on IV zosyn also -Cardiology has signed off at this time -Continue aspirin/brilinta -Blood pressure has been dropping into the 100s systolic. Lisinopril has been decreased with parameters. Discontinue hydralazine. -Monitor renal function and repeat labs in the AM -PT/OT consultation in place as plan is for patient to go to [facility] once discharge planning is in progress. Patient will also require insurance authorization. The impression and plan of care has been dictated by Caprice Stern, Nurse Practitioner as directed. Dr. Rebecca MD I have performed a history and physical examination and medical decision making of this patient, discussed the same with the dictator, and agree with the dictators assessment and plan as written, documented as a scribe. Based on total visit time, I have performed more than 50% of this visit. Objective - Vital Signs Vital signs: Vital Signs Temp 98.3 F 05/07/24 03:18 Pulse 89 05/07/24 03:18 Resp 18 05/07/24 03:18 BP 148/72 05/07/24 03:18 Pulse Ox 100 05/07/24 03:18 FiO2 Intake & Output 05/06/24 05/07/24 05/07/24 18:59 06:59 18:59 Intake Total 360 240 118 Output Total 200 600 Balance 160 -360 118 Weight 59 kg Intake: Oral 360 240 118 Output: Urine 200 600 Other: Voiding Method Urinal Urinal External Catheter External Catheter - Labs CBC & Chem 7: 05/07/24 07:35 05/07/24 08:00 Labs: Abnormal Lab Results - Last 24 Hours (Table) 05/06/24 05/06/24 05/06/24 Range/Units 11:13 12:04 12:04 WBC 14.9 H (3.8-10.6) k/uL RBC 2.86 L (4.30-5.90) m/uL Hgb 7.7 L D (13.0-17.5) gm/dL Hct 23.4 L (39.0-53.0) % RDW 16.7 H (11.5-15.5) % Neutrophils # 13.3 H (1.3-7.7) k/uL Sodium 135 L (137-145) mmol/L Chloride 109 H (98-107) mmol/L Glucose 174 H (74-99) mg/dL POC Glucose (mg/dL) 215 H (70-110) mg/dL 05/06/24 05/07/24 05/07/24 Range/Units 20:08 06:05 07:35 WBC 12.5 H (3.8-10.6) k/uL RBC 3.43 L (4.30-5.90) m/uL Hgb 8.7 L (13.0-17.5) gm/dL Hct 28.1 L (39.0-53.0) % RDW 16.7 H (11.5-15.5) % Neutrophils # 11.0 H (1.3-7.7) k/uL Sodium (137-145) mmol/L Chloride (98-107) mmol/L Glucose (74-99) mg/dL POC Glucose (mg/dL) 168 H 161 H (70-110) mg/dL 05/07/24 Range/Units 08:00 WBC (3.8-10.6) k/uL RBC (4.30-5.90) m/uL Hgb (13.0-17.5) gm/dL Hct (39.0-53.0) % RDW (11.5-15.5) % Neutrophils # (1.3-7.7) k/uL Sodium 135 L (137-145) mmol/L Chloride 108 H (98-107) mmol/L Glucose 130 H (74-99) mg/dL POC Glucose (mg/dL) (70-110) mg/dL Assessment and Plan Time with Patient: Less than 30
[2024-05-07 11:37] LABS: Glucose,Whole Blood 186 mg/dL (70-110)
--- NOTE | 2024-05-07 11:46 | P.PN ---
Subjective Progress Note Date: 05/07/24 Principal diagnosis: chronic left lower extremity wound, and right great toe wound Patient seen and evaluated. No overnight issues. Pain at the amputation site is controlled. Objective - Vital Signs Vital signs: Vital Signs Temp 98.3 F 05/07/24 03:18 Pulse 89 05/07/24 03:18 Resp 18 05/07/24 03:18 BP 148/72 05/07/24 03:18 Pulse Ox 100 05/07/24 03:18 FiO2 Intake & Output 05/06/24 05/07/24 05/07/24 18:59 06:59 18:59 Intake Total 360 240 118 Output Total 200 600 150 Balance 160 -360 -32 Weight 59 kg Intake: Oral 360 240 118 Output: Urine 200 600 150 Other: Voiding Method Urinal Urinal External Catheter External Catheter - Exam Left AKA site clean, dry and intact. Right great toe wound dressings intact, minimal drainage - Labs CBC & Chem 7: 05/07/24 07:35 05/07/24 08:00 Labs: Abnormal Lab Results - Last 24 Hours (Table) 05/06/24 05/06/24 05/06/24 Range/Units 12:04 12:04 20:08 WBC 14.9 H (3.8-10.6) k/uL RBC 2.86 L (4.30-5.90) m/uL Hgb 7.7 L D (13.0-17.5) gm/dL Hct 23.4 L (39.0-53.0) % RDW 16.7 H (11.5-15.5) % Neutrophils # 13.3 H (1.3-7.7) k/uL Sodium 135 L (137-145) mmol/L Chloride 109 H (98-107) mmol/L Glucose 174 H (74-99) mg/dL POC Glucose (mg/dL) 168 H (70-110) mg/dL 05/07/24 05/07/24 05/07/24 Range/Units 06:05 07:35 08:00 WBC 12.5 H (3.8-10.6) k/uL RBC 3.43 L (4.30-5.90) m/uL Hgb 8.7 L (13.0-17.5) gm/dL Hct 28.1 L (39.0-53.0) % RDW 16.7 H (11.5-15.5) % Neutrophils # 11.0 H (1.3-7.7) k/uL Sodium 135 L (137-145) mmol/L Chloride 108 H (98-107) mmol/L Glucose 130 H (74-99) mg/dL POC Glucose (mg/dL) 161 H (70-110) mg/dL 05/07/24 Range/Units 11:33 WBC (3.8-10.6) k/uL RBC (4.30-5.90) m/uL Hgb (13.0-17.5) gm/dL Hct (39.0-53.0) % RDW (11.5-15.5) % Neutrophils # (1.3-7.7) k/uL Sodium (137-145) mmol/L Chloride (98-107) mmol/L Glucose (74-99) mg/dL POC Glucose (mg/dL) 186 H (70-110) mg/dL Assessment and Plan Assessment: POD 2 left AKA Chronic left lower extremity leg wound VRE bacteremia Chronic right great toe wound Severe peripheral arterial disease, critical limb ischemia Plan: pain control PT/OT to eval and treat Likely EN[facility] when medically stable.
--- NOTE | 2024-05-07 12:18 | P.PN ---
Subjective Progress Note Date: 05/07/24 Principal diagnosis: Reason for follow-up is VRE bacteremia and left lateral malleolar osteomyelitis Patient is a 68-year-old male with multiple comorbidities he did have a left lateral malleolar osteomyelitis diagnosed back in March culture positive for E. coli Enterobacter for which the patient was treated with Zosyn patient subsequently left the alf and was not clear he was given antibiotics at home presenting to the hospital with decreased level of responsiveness has been diagnosed with VRE bacteremia likely related to the PICC line which has been dis continued and did have extensive wound to the left lateral malleolus as well as left big toe, patient is status post Left above-knee amputation and Right lower extremity great toe partial amputation completed by vascular surgery on 05/05/2024. On today's evaluation that is 05/07/2024, Patient is afebrile this morning patient denies having any chest pain shortness of breath or cough, the patient is breathing comfortably and currently on room air, patient denies any abdominal pain no diarrhea no nausea no vomiting, pain to the left AKA and right foot is currently controlled. Patient white count is down to 12.5, creatinine 0.80 Objective - Vital Signs Vital signs: Vital Signs Temp 98.0 F 05/07/24 08:00 Pulse 97 05/07/24 08:00 Resp 18 05/07/24 08:00 BP 145/59 05/07/24 08:00 Pulse Ox 100 05/07/24 08:00 FiO2 Intake & Output 05/06/24 05/07/24 05/07/24 18:59 06:59 18:59 Intake Total 360 240 118 Output Total 200 600 150 Balance 160 -360 -32 Weight 59 kg Intake: Oral 360 240 118 Output: Urine 200 600 150 Other: Voiding Method Urinal Urinal Urinal External Catheter External Catheter - Exam GENERAL DESCRIPTION: An elderly male lying in bed in no distress RESPIRATORY SYSTEM: Unlabored breathing , decreased breath sounds at bases HEART: S1 S2 regular rate and rhythm , ABDOMEN: Soft , no tenderness, EXTREMITIES: Left AKA stump and right foot is currently dressed - Labs CBC & Chem 7: 05/07/24 07:35 05/07/24 08:00 Labs: Abnormal Lab Results - Last 24 Hours (Table) 05/06/24 05/06/24 05/06/24 Range/Units 12:04 12:04 20:08 WBC 14.9 H (3.8-10.6) k/uL RBC 2.86 L (4.30-5.90) m/uL Hgb 7.7 L D (13.0-17.5) gm/dL Hct 23.4 L (39.0-53.0) % RDW 16.7 H (11.5-15.5) % Neutrophils # 13.3 H (1.3-7.7) k/uL Sodium 135 L (137-145) mmol/L Chloride 109 H (98-107) mmol/L Glucose 174 H (74-99) mg/dL POC Glucose (mg/dL) 168 H (70-110) mg/dL 05/07/24 05/07/24 05/07/24 Range/Units 06:05 07:35 08:00 WBC 12.5 H (3.8-10.6) k/uL RBC 3.43 L (4.30-5.90) m/uL Hgb 8.7 L (13.0-17.5) gm/dL Hct 28.1 L (39.0-53.0) % RDW 16.7 H (11.5-15.5) % Neutrophils # 11.0 H (1.3-7.7) k/uL Sodium 135 L (137-145) mmol/L Chloride 108 H (98-107) mmol/L Glucose 130 H (74-99) mg/dL POC Glucose (mg/dL) 161 H (70-110) mg/dL 05/07/24 Range/Units 11:33 WBC (3.8-10.6) k/uL RBC (4.30-5.90) m/uL Hgb (13.0-17.5) gm/dL Hct (39.0-53.0) % RDW (11.5-15.5) % Neutrophils # (1.3-7.7) k/uL Sodium (137-145) mmol/L Chloride (98-107) mmol/L Glucose (74-99) mg/dL POC Glucose (mg/dL) 186 H (70-110) mg/dL Assessment and Plan (1) VRE bacteremia Current Visit: Yes Status: Acute Code(s): R78.81 - BACTEREMIA; B95.2 - ENTEROCOCCUS THE CAUSE OF DISEASES CLASSIFIED ELSEWHERE; Z16.21 - RESISTANCE TO VANCOMYCIN SNOMED Code(s): 4847239360 (2) Foot osteomyelitis, left Current Visit: Yes Status: Acute Code(s): M86.9 - OSTEOMYELITIS, UNSPECIFIED SNOMED Code(s): 3120167686229183 Plan: 1patient with VRE bacteremia source likely PICC line which has been discontinued currently waiting for the PICC line tip as well as repeat blood cultures to be finalized, patient is on Zyvox to finish a 2-week course of therapy from the negative blood culture 2patient did have a stage III right gluteal wound local wound care with Medihoney followed by moist dressing keep the area of the pressure 3-patient is status post left blwto-fun-gfrb amputation and partial amputation of the right big toe with infected port removal, the patient willnot need long- term IV antibiotics on discharge, this was discussed with the nursing staff as well as MITERING MACHINE OPERATOR for admitting team for now continue with Zosyn for few days while inpatient Dictation was produced using [employer] dictation software. please excuse any gramma tical, word or spelling errors. Time with Patient: Less than 30
--- NOTE | 2024-05-07 14:20 | P.PN ---
Subjective Progress Note Date: 05/07/24 Pleasant 68-year-old male who had outpatient therapy of a left malleolar wound. Wound to the left arredondo as well as the right great toe. There is concern for gangrenous changes in a patient with peripheral arterial disease. Vascular surgery was consulted to evaluate this patient for possible amputation of the right great toe and also surgical debridement of the left ankle wound. ID has been following closely. We are unable to locate the left ankle wound culture at this time and will need surgical cultures taken during debridement. He had positive blood cultures for VRE. Per lab the most recent blood cultures are negative as well as the PICC line tip. 05/03/2024 Patient is seen and evaluated in follow-up with infectious disease following. Patient maintained on antibiotics and will likely transition to oral. Vascular surgery consulted to evaluate for possible amputation of the right great toe and also possible surgical debridement of the left arredondo wound. Patient continues to have some lower extremity swelling more so on the left and reports his pain is 7/10 on the pain scale. Patient with significant weakness working on going to [facility] and would like to go to [facility]. Will await vascular surgery consultation and evaluation to consider discharge planning moving forward. Patient is cur rently afebrile. Patient will require insurance authorization as well once discharge planning is in progress. 05/04/2024 Patient is evaluated in follow up today on the medical floor. He is scheduled to undergo left above the knee amputation tomorrow. Abdominal ultrasound was completed yesterday with no evidence of obstructive uropathy gallbladder is WNL. Renal function WNL. 05/05/2024 Patient is evaluated in follow-up on the medical floor he is scheduled to undergo left gcnnx-[id number]-[id number] amputation today as well as right toe debridement and possible amputation. His renal function remains normal. Hemoglobin A1c is 6.8. Blood pressure better at 120/85. 05/06/2024 Patient is postoperative day #1 left above the knee amputation and partial right great toe amputation. He states pain is fairly controlled at this time. He continues on IV zosyn. White count is 12.5. hgb 8.7. Sodium 135. BP 148/72. 05/07/2024 Patient is evaluated today postoperative day #2 left above the knee amputation and partial right great toe amputation. He has no acute complaints today. Continues on IV zosyn. White blood cell count 12.5, hgb 8.7, Sodium 135, renal function normal. No plans for discharge until Friday per vascular. Review of Systems Constitutional: Denied any fatigue denied any fever. Cardio vascular: denied any chest pain, palpitations Gastrointestinal: denied any nausea, vomiting, diarrhea Pulmonary: Denied any shortness of breath cough Neurologic denied any new focal deficits All inpatient medications were reviewed and appropriate changes in these medications as dictated in the interval history and assessment and plan. PHYSICAL EXAMINATION: GENERAL: The patient is alert and oriented x3, not in any acute distress. Well developed, well nourished. HEENT: Pupils are round and equally reacting to light. EOMI. No scleral icterus. No conjunctival pallor. Normocephalic, atraumatic. No pharyngeal erythema. No thyromegaly. CARDIOVASCULAR: S1 and S2 present. No murmurs, rubs, or gallops. PULMONARY: Chest is clear to auscultation, no wheezing or crackles. ABDOMEN: Soft, nontender, nondistended, normoactive bowel sounds. No palpable organomegaly. MUSCULOSKELETAL: No joint swelling or deformity. EXTREMITIES: No cyanosis, clubbing, or pedal edema. NEUROLOGICAL: Gross neurological examination did not reveal any focal deficits. Diffusely weak. SKIN: No rashes. Left malleolar wound, left arredondo wound. Right great toe wound. Assessment: -VRE bacteremia secondary to PICC line, has been discontinued. -Left malleolar wound underlying osteomyelitis and sepsis, present on admission s/p Left AKA and right great toe partial amputation secondary to gangrenous right great toe. -Episode of VTach/SVT resolved -Chronic heart failure with reduced EF 25-30%. -NSTEMI type 2 -Coronary artery disease with previous CABG and multiple stents -Acute kidney injury, resolved. -Hx of peripheral arterial disease with prior bypass -Diabetes mellitus type 2 -History of stroke 2020 with left sided deficits -Hx hypertension -Hyperlipidemia -Hx of peripheral neuropathy GI prophylaxis DVT prophylaxis Full Code Plan -Continue on Zyvox at this time, further antibiotic recommendations per ID current plans are for discharge no oral zyvox. -Still waiting for left malleolar culture should be faxed over by micro lab today if available. -Continues on IV zosyn also -Cardiology has signed off at this time -Continue aspirin/brilinta -Blood pressure has been dropping into the 100s systolic. Lisinopril has been decreased with parameters. Discontinue hydralazine. -Monitor renal function and repeat labs in the AM -PT/OT consultation in place as plan is for patient to go to [facility] once discharge planning is in progress. Patient will also require insurance authorization. Plan is for discharge to [facility] The impression and plan of care has been dictated by Caprice Stern, Nurse Practitioner as directed. Dr. Rebecca MD I have performed a history and physical examination and medical decision making of this patient, discussed the same with the dictator, and agree with the dictators assessment and plan as written, documented as a scribe. Based on total visit time, I have performed more than 50% of this visit. Objective - Vital Signs Vital signs: Vital Signs Temp 98.3 F 05/07/24 03:18 Pulse 89 05/07/24 03:18 Resp 18 05/07/24 03:18 BP 148/72 05/07/24 03:18 Pulse Ox 100 05/07/24 03:18 FiO2 Intake & Output 05/06/24 05/07/24 05/07/24 18:59 06:59 18:59 Intake Total 360 240 118 Output Total 200 600 Balance 160 -360 118 Weight 59 kg Intake: Oral 360 240 118 Output: Urine 200 600 Other: Voiding Method Urinal Urinal External Catheter External Catheter - Labs CBC & Chem 7: 05/07/24 07:35 05/07/24 08:00 Labs: Abnormal Lab Results - Last 24 Hours (Table) 05/06/24 05/06/24 05/06/24 Range/Units 11:13 12:04 12:04 WBC 14.9 H (3.8-10.6) k/uL RBC 2.86 L (4.30-5.90) m/uL Hgb 7.7 L D (13.0-17.5) gm/dL Hct 23.4 L (39.0-53.0) % RDW 16.7 H (11.5-15.5) % Neutrophils # 13.3 H (1.3-7.7) k/uL Sodium 135 L (137-145) mmol/L Chloride 109 H (98-107) mmol/L Glucose 174 H (74-99) mg/dL POC Glucose (mg/dL) 215 H (70-110) mg/dL 05/06/24 05/07/24 05/07/24 Range/Units 20:08 06:05 07:35 WBC 12.5 H (3.8-10.6) k/uL RBC 3.43 L (4.30-5.90) m/uL Hgb 8.7 L (13.0-17.5) gm/dL Hct 28.1 L (39.0-53.0) % RDW 16.7 H (11.5-15.5) % Neutrophils # 11.0 H (1.3-7.7) k/uL Sodium (137-145) mmol/L Chloride (98-107) mmol/L Glucose (74-99) mg/dL POC Glucose (mg/dL) 168 H 161 H (70-110) mg/dL 05/07/24 Range/Units 08:00 WBC (3.8-10.6) k/uL RBC (4.30-5.90) m/uL Hgb (13.0-17.5) gm/dL Hct (39.0-53.0) % RDW (11.5-15.5) % Neutrophils # (1.3-7.7) k/uL Sodium 135 L (137-145) mmol/L Chloride 108 H (98-107) mmol/L Glucose 130 H (74-99) mg/dL POC Glucose (mg/dL) (70-110) mg/dL Assessment and Plan Time with Patient: Less than 30
[2024-05-07 16:14] LABS: Glucose,Whole Blood 234 mg/dL (70-110)
[2024-05-07 20:07] LABS: Glucose,Whole Blood 141 mg/dL (70-110)
[2024-05-08 06:21] LABS: Glucose,Whole Blood 127 mg/dL (70-110)
[2024-05-08 11:38] LABS: Glucose,Whole Blood 263 mg/dL (70-110)
[2024-05-08 16:52] LABS: Glucose,Whole Blood 121 mg/dL (70-110)
--- NOTE | 2024-05-08 19:10 | P.PN ---
Subjective Progress Note Date: 05/08/24 Principal diagnosis: Reason for follow-up is VRE bacteremia and left lateral malleolar osteomyelitis Patient is a 68-year-old male with multiple comorbidities he did have a left lateral malleolar osteomyelitis diagnosed back in March culture positive for E. coli Enterobacter for which the patient was treated with Zosyn patient subsequently left the long-term and was not clear he was given antibiotics at home presenting to the hospital with decreased level of responsiveness has been diagnosed with VRE bacteremia likely related to the PICC line which has been dis continued and did have extensive wound to the left lateral malleolus as well as left big toe, patient is status post Left above-knee amputation and Right lower extremity great toe partial amputation completed by vascular surgery on 05/05/2024. On today's evaluation that is 05/08/2024,the patient denies any fever or any chills, patient is breathing comfortably on room air, the patient denies chest pain shortness of breath and no significant cough, patient denies abdominal pain, no nausea vomiting or diarrhea. Pain to the left AKA and right foot is currently controlled. No new lab has been obtained today Objective - Vital Signs Vital signs: Vital Signs Temp 98.3 F 05/08/24 04:00 Pulse 83 05/08/24 04:00 Resp 17 05/08/24 04:00 BP 111/68 05/08/24 04:00 Pulse Ox 100 05/08/24 04:00 FiO2 Intake & Output 05/07/24 05/08/24 05/08/24 18:59 06:59 18:59 Intake Total 562 1160 Output Total 550 200 Balance 12 960 Weight 60 kg Intake: Intake, IV Titration 200 Amount Piperacillin-Tazobactam 3 200 .375 gm In Sodium Chloride 0.9% 100 ml @ 25 mls/hr IVPB Q8HR@0600, 1400,2200 [facility] Rx#: [id number] Oral 562 960 Output: Urine 550 200 Other: Voiding Method Urinal Urinal # Voids 3 1 - Exam GENERAL DESCRIPTION: An elderly male lying in bed in no distress RESPIRATORY SYSTEM: Unlabored breathing , decreased breath sounds at bases HEART: S1 S2 regular rate and rhythm , ABDOMEN: Soft , no tenderness, EXTREMITIES: Left AKA stump and right foot is currently dressed - Labs CBC & Chem 7: 05/07/24 07:35 05/07/24 08:00 Labs: Abnormal Lab Results - Last 24 Hours (Table) 05/07/24 05/07/24 05/07/24 Range/Units 07:35 08:00 11:33 WBC 12.5 H (3.8-10.6) k/uL RBC 3.43 L (4.30-5.90) m/uL Hgb 8.7 L (13.0-17.5) gm/dL Hct 28.1 L (39.0-53.0) % RDW 16.7 H (11.5-15.5) % Neutrophils # 11.0 H (1.3-7.7) k/uL Sodium 135 L (137-145) mmol/L Chloride 108 H (98-107) mmol/L Glucose 130 H (74-99) mg/dL POC Glucose (mg/dL) 186 H (70-110) mg/dL 05/07/24 05/07/24 05/08/24 Range/Units 16:09 20:05 06:20 WBC (3.8-10.6) k/uL RBC (4.30-5.90) m/uL Hgb (13.0-17.5) gm/dL Hct (39.0-53.0) % RDW (11.5-15.5) % Neutrophils # (1.3-7.7) k/uL Sodium (137-145) mmol/L Chloride (98-107) mmol/L Glucose (74-99) mg/dL POC Glucose (mg/dL) 234 H 141 H 127 H (70-110) mg/dL Assessment and Plan (1) VRE bacteremia Current Visit: Yes Status: Acute Code(s): R78.81 - BACTEREMIA; B95.2 - ENTEROCOCCUS THE CAUSE OF DISEASES CLASSIFIED ELSEWHERE; Z16.21 - RESISTANCE TO VANCOMYCIN SNOMED Code(s): 0960716716 (2) Foot osteomyelitis, left Current Visit: Yes Status: Acute Code(s): M86.9 - OSTEOMYELITIS, UNSPECIFIED SNOMED Code(s): 8849447712120519 Plan: 1patient with VRE bacteremia source likely PICC line which has been discontinued currently waiting for the PICC line tip as well as repeat blood cultures to be finalized, patient to continue with Zyvox try to get the repeat cultures from the micro lab 2patient did have a stage III right gluteal wound local wound care with Me [facility] followed by moist dressing keep the area of the pressure 3-patient is status post left swjql-[id number] amputation and partial amputation of the right big toe with infected port removal, the patient to continue with Zosyabiola Dictation was produced using [employer] dictation software. please excuse any grammatical, word or spelling errors. Time with Patient: Less than 30
[2024-05-08 20:04] LABS: Glucose,Whole Blood 276 mg/dL (70-110)
[2024-05-09 01:51] LABS: Glucose,Whole Blood 181 mg/dL (70-110)
[2024-05-09 06:11] LABS: Glucose,Whole Blood 174 mg/dL (70-110)
[2024-05-09 11:38] LABS: Glucose,Whole Blood 170 mg/dL (70-110)
[2024-05-09 15:39] LABS: Anisocytosis Slight; Basophils % (A) 0 %; Eosinophils # (A) 0.1 k/uL (0-0.7); Eosinophils % (A) 1 %; HCT 23.6 % (39.0-53.0); HGB 7.7 gm/dL (13.0-17.5); Hypochromasia Moderate; Lymphocytes # (A) 1.6 k/uL (1.0-4.8); Lymphocytes % (A) 9 %; MCHC 32.8 g/dL (31.0-37.0); MCV 79.2 fL (80.0-100.0); Mean Platelet Volume 8.3; Monocytes # (A) 0.5 k/uL (0-1.0); Monocytes % (A) 3 %; Neutrophils # (A) 16.4 k/uL (1.3-7.7); Neutrophils % (A) 87 %; Platelet Count 259 k/uL (150-450); RBC 2.98 m/uL (4.30-5.90); WBC 18.8 k/uL (3.8-10.6)
[2024-05-09 15:55] LABS: African American GFR (CKD) >90 (>60 ml/min/1.73 sqM); Anion Gap 4 mmol/L; Blood Urea Nitrogen 13 mg/dL (9-20); Calcium 8.6 mg/dL (8.4-10.2); Carbon Dioxide 23 mmol/L (22-30); Chloride 109 mmol/L (98-107); Glucose 136 mg/dL (74-99); Non-African American GFR(CKD) 89 (>60 ml/min/1.73 sqM); Potassium 4.4 mmol/L (3.5-5.1); Sodium 136 mmol/L (137-145)
[2024-05-09 16:52] LABS: Glucose,Whole Blood 196 mg/dL (70-110)
--- NOTE | 2024-05-09 18:11 | P.PN ---
Subjective Progress Note Date: 05/09/24 Principal diagnosis: Reason for follow-up is VRE bacteremia and left lateral malleolar osteomyelitis Patient is a 68-year-old male with multiple comorbidities he did have a left lateral malleolar osteomyelitis diagnosed back in March culture positive for E. coli Enterobacter for which the patient was treated with Zosyn patient subsequently left the [facility] and was not clear he was given antibiotics at home presenting to the hospital with decreased level of responsiveness has been diagnosed with VRE bacteremia likely related to the PICC line which has been dis continued and did have extensive wound to the left lateral malleolus as well as left big toe, patient is status post Left above-knee amputation and Right lower extremity great toe partial amputation completed by vascular surgery on 05/05/2024. On today's evaluation that is 05/09/2024,the patient remains to be afebrile, patient is on room air not requiring supplemental oxygen and denies any shortnes s of breath no chest pain or cough.Patient denies having any nausea or vomiting, no abdominal pain and no diarrhea has been reported, denies any worsening pain to the left AKA or the right foot wound. Patient white count is up to 18.8 today, creatinine 0.84 Objective - Vital Signs Vital signs: Vital Signs Temp 98 F 05/09/24 15:35 Pulse 102 H 05/09/24 15:35 Resp 16 05/09/24 15:35 BP 92/54 05/09/24 15:35 Pulse Ox 96 05/09/24 15:35 FiO2 Intake & Output 05/08/24 05/09/24 05/09/24 18:59 06:59 18:59 Intake Total 562 920 Output Total 200 700 Balance 362 -700 920 Weight 59.5 kg Intake: Intake, IV Titration 100 Amount Piperacillin-Tazobactam 3 100 .375 gm In Sodium Chloride 0.9% 100 ml @ 25 mls/hr IVPB Q8HR@0600, 1400,2200 [facility] Rx#: [id number] Oral 562 820 Output: Urine 200 700 Other: Voiding Method Urinal Urinal Urinal # Bowel Movements 1 1 - Exam GENERAL DESCRIPTION: An elderly male lying in bed in no distress RESPIRATORY SYSTEM: Unlabored breathing , decreased breath sounds at bases HEART: S1 S2 regular rate and rhythm , ABDOMEN: Soft , no tenderness, EXTREMITIES: Left AKA stump and right foot is currently dressed - Labs CBC & Chem 7: 05/09/24 15:08 05/09/24 15:08 Labs: Abnormal Lab Results - Last 24 Hours (Table) 05/08/24 05/09/24 05/09/24 Range/Units 20:02 01:50 06:09 WBC (3.8-10.6) k/uL RBC (4.30-5.90) m/uL Hgb (13.0-17.5) gm/dL Hct (39.0-53.0) % MCV (80.0-100.0) fL RDW (11.5-15.5) % Neutrophils # (1.3-7.7) k/uL Sodium (137-145) mmol/L Chloride (98-107) mmol/L Glucose (74-99) mg/dL POC Glucose (mg/dL) 276 H 181 H 174 H (70-110) mg/dL 05/09/24 05/09/24 05/09/24 Range/Units 11:37 15:08 15:08 WBC 18.8 H (3.8-10.6) k/uL RBC 2.98 L (4.30-5.90) m/uL Hgb 7.7 L (13.0-17.5) gm/dL Hct 23.6 L (39.0-53.0) % MCV 79.2 L (80.0-100.0) fL RDW 17.0 H (11.5-15.5) % Neutrophils # 16.4 H (1.3-7.7) k/uL Sodium 136 L (137-145) mmol/L Chloride 109 H (98-107) mmol/L Glucose 136 H (74-99) mg/dL POC Glucose (mg/dL) 170 H (70-110) mg/dL 05/09/24 Range/Units 16:51 WBC (3.8-10.6) k/uL RBC (4.30-5.90) m/uL Hgb (13.0-17.5) gm/dL Hct (39.0-53.0) % MCV (80.0-100.0) fL RDW (11.5-15.5) % Neutrophils # (1.3-7.7) k/uL Sodium (137-145) mmol/L Chloride (98-107) mmol/L Glucose (74-99) mg/dL POC Glucose (mg/dL) 196 H (70-110) mg/dL Assessment and Plan (1) VRE bacteremia Current Visit: Yes Status: Acute Code(s): R78.81 - BACTEREMIA; B95.2 - ENTEROCOCCUS THE CAUSE OF DISEASES CLASSIFIED ELSEWHERE; Z16.21 - RESISTANCE TO VANCOMYCIN SNOMED Code(s): 8452185644 (2) Foot osteomyelitis, left Current Visit: Yes Status: Acute Code(s): M86.9 - OSTEOMYELITIS, UNSPECIFIED SNOMED Code(s): 8935901022068679 Plan: 1patient with VRE bacteremia source likely PICC line which has been discontinued currently waiting for the PICC line tip as well as repeat blood cu ltures to be finalized, patient to continue with Zyvox try to get the repeat cultures from the micro lab 2patient did have a stage III right gluteal wound local wound care with [facility] followed by moist dressing keep the area of the pressure 3-patient is status post left jyqoa-xhk-tiyf amputation and partial amputation of the right big toe, patient is currently covered with Zosyn noticed to have worsening of his white count need to monitor closely we will repeat a CBC CRP with a.m. lab and adjust antibiotic if further worsening of the white count Dictation was produced using [employer] [facility] dictation software. please excuse any grammatical, word or spelling errors. Time with Patient: Less than 30
[2024-05-09 20:16] LABS: Glucose,Whole Blood 175 mg/dL (70-110)
--- NOTE | 2024-05-09 23:14 | P.PN ---
Subjective Progress Note Date: 05/08/24 Pleasant 68-year-old male who had outpatient therapy of a left malleolar wound. Wound to the left arredondo as well as the right great toe. There is concern for gangrenous changes in a patient with peripheral arterial disease. Vascular surgery was consulted to evaluate this patient for possible amputation of the right great toe and also surgical debridement of the left ankle wound. ID has been following closely. We are unable to locate the left ankle wound culture at this time and will need surgical cultures taken during debridement. He had positive blood cultures for VRE. Per lab the most recent blood cultures are negative as well as the PICC line tip. 05/03/2024 Patient is seen and evaluated in follow-up with infectious disease following. Patient maintained on antibiotics and will likely transition to oral. Vascular surgery consulted to evaluate for possible amputation of the right great toe and also possible surgical debridement of the left arredondo wound. Patient continues to have some lower extremity swelling more so on the left and reports his pain is 7/10 on the pain scale. Patient with significant weakness working on going to [facility] and would like to go to [facility]. Will await vascular surgery consultation and evaluation to consider discharge planning moving forward. Patient is cu rrently afebrile. Patient will require insurance authorization as well once discharge planning is in progress. 05/04/2024 Patient is evaluated in follow up today on the medical floor. He is scheduled to undergo left above the knee amputation tomorrow. Abdominal ultrasound was completed yesterday with no evidence of obstructive uropathy gallbladder is WNL. Renal function WNL. 05/05/2024 Patient is evaluated in follow-up on the medical floor he is scheduled to undergo left jonus-ppw-gcuh amputation today as well as right toe debridement and possible amputation. His renal function remains normal. Hemoglobin A1c is 6.8. Blood pressure better at 120/85. 05/06/2024 Patient is postoperative day #1 left above the knee amputation and partial right great toe amputation. He states pain is fairly controlled at this time. He continues on IV zosyn. White count is 12.5. hgb 8.7. Sodium 135. BP 148/72. 05/07/2024 Patient is evaluated today postoperative day #2 left above the knee amputation a nd partial right great toe amputation. He has no acute complaints today. Continues on IV zosyn. White blood cell count 12.5, hgb 8.7, Sodium 135, renal function normal. No plans for discharge until Friday per vascular. 05/08/2024 Patient is currently sitting on side of the bed. Awake alert and oriented x 3. On room air. Complains of pain in his surgical site. Patient is postoperative day 3 left MIKE Denied any complaints of chest pain or shortness of breath. No nausea vomiting abdominal pain or diarrhea. No cough or sputum production. Laboratory data reviewed from yesterday. Blood sugars fairly controlled. Patient is on antibiotics in the form of Zosyn. ID is on board. Patient is complaining of pain at the surgical site. Fairly controlled with medications. Review of Systems Constitutional: Denied any fatigue denied any fever. Cardio vascular: denied any chest pain, palpitations Gastrointestinal: denied any nausea, vomiting, diarrhea Pulmonary: Denied any shortness of breath cough Neurologic denied any new focal deficits All inpatient medications were reviewed and appropriate changes in these medications as dictated in the interval history and assessment and plan. PHYSICAL EXAMINATION: GENERAL: The patient is alert and oriented x3, not in any acute distress. Well developed, well nourished. HEENT: Pupils are round and equally reacting to light. EOMI. No scleral icterus. No conjunctival pallor. Normocephalic, atraumatic. No pharyngeal erythema. No thyromegaly. CARDIOVASCULAR: S1 and S2 present. No murmurs, rubs, or gallops. PULMONARY: Chest is clear to auscultation, no wheezing or crackles. ABDOMEN: Soft, nontender, nondistended, normoactive bowel sounds. No palpable organomegaly. MUSCULOSKELETAL: No joint swelling or deformity. EXTREMITIES: Left AKA wound is packed. Right lower extremity edema and foot wound.. NEUROLOGICAL: Gross neurological examination did not reveal any focal deficits. Diffusely weak. SKIN: No rashes. Right great toe wound. Assessment: -VRE bacteremia secondary to PICC line, has been discontinued. -Left malleolar wound underlying osteomyelitis and sepsis, present on admission s/p Left AKA and right great toe partial amputation secondary to gangrenous right great toe. -Episode of VTach/SVT resolved -Chronic heart failure with reduced EF 25-30%. -NSTEMI type 2 -Coronary artery disease with previous CABG and multiple stents -Acute kidney injury, resolved. -Hx of peripheral arterial disease with prior bypass -Diabetes mellitus type 2 -History of stroke 2020 with left sided deficits -Hx hypertension -Hyperlipidemia -Hx of peripheral neuropathy GI prophylaxis DVT prophylaxis Full Code Plan -Continue with pain management with [place]. -Still waiting for left malleolar culture should be faxed over by micro lab today if available. -Continues on IV zosyn -Cardiology has signed off at this time -Continue aspirin/brilinta -Blood pressure has been dropping into the 100s systolic. Lisinopril has been decreased with parameters. Discontinued hydralazine. -Monitor renal function and repeat labs in the AM -PT/OT consultation in place as plan is for patient to go to [facility] once d ischarge planning is in progress. Patient will also require insurance authorization. Plan is for discharge to [facility] Objective - Vital Signs Vital signs: Vital Signs Temp 98.7 F 05/08/24 12:00 Pulse 101 H 05/08/24 12:00 Resp 16 05/08/24 12:00 BP 85/49 05/08/24 12:00 Pulse Ox 98 05/08/24 12:00 FiO2 Intake & Output 05/07/24 05/08/24 05/08/24 18:59 06:59 18:59 Intake Total 562 1160 340 Output Total 550 200 200 Balance 12 960 140 Weight 60 kg Intake: Intake, IV Titration 200 Amount Piperacillin-Tazobactam 3 200 .375 gm In Sodium Chloride 0.9% 100 ml @ 25 mls/hr IVPB Q8HR@0600, 1400,2200 [facility] Rx#: [id number] Oral 562 960 340 Output: Urine 550 200 200 Other: Voiding Method Urinal Urinal Urinal # Voids 3 1 # Bowel Movements 1 - Labs CBC & Chem 7: 05/13/24 07:33 05/13/24 07:33 Labs: Abnormal Lab Results - Last 24 Hours (Table) 05/07/24 05/07/24 05/08/24 Range/Units 16:09 20:05 06:20 POC Glucose (mg/dL) 234 H 141 H 127 H (70-110) mg/dL 05/08/24 Range/Units 11:36 POC Glucose (mg/dL) 263 H (70-110) mg/dL
[2024-05-10 05:59] LABS: Glucose,Whole Blood 176 mg/dL (70-110)
[2024-05-10 08:03] LABS: Anisocytosis Slight; Basophils % (A) 0 %; Eosinophils # (A) 0.1 k/uL (0-0.7); Eosinophils % (A) 1 %; HCT 24.1 % (39.0-53.0); HGB 7.8 gm/dL (13.0-17.5); Hypochromasia Slight; Lymphocytes # (A) 1.3 k/uL (1.0-4.8); Lymphocytes % (A) 10 %; MCH 25.8 pg (25.0-35.0); MCHC 32.3 g/dL (31.0-37.0); MCV 79.9 fL (80.0-100.0); Mean Platelet Volume 9.2; Monocytes # (A) 0.3 k/uL (0-1.0); Monocytes % (A) 2 %; Neutrophils # (A) 10.8 k/uL (1.3-7.7); Neutrophils % (A) 86 %; Platelet Count 237 k/uL (150-450); RBC 3.02 m/uL (4.30-5.90); RDW 17.4 % (11.5-15.5); WBC 12.5 k/uL (3.8-10.6)
[2024-05-10 08:16] LABS: African American GFR (CKD) >90 (>60 ml/min/1.73 sqM); Anion Gap 0 mmol/L; Blood Urea Nitrogen 9 mg/dL (9-20); Calcium 8.5 mg/dL (8.4-10.2); Carbon Dioxide 25 mmol/L (22-30); Chloride 109 mmol/L (98-107); Glucose 152 mg/dL (74-99); Non-African American GFR(CKD) >90 (>60 ml/min/1.73 sqM); Potassium 4.1 mmol/L (3.5-5.1); Sodium 134 mmol/L (137-145)
[2024-05-10 08:58] LABS: C Reactive Protein 14.5 mg/dL (<1.0)
[2024-05-10 11:49] LABS: Glucose,Whole Blood 218 mg/dL (70-110)
[2024-05-10 13:48] LABS: Glucose,Whole Blood 182 mg/dL (70-110)
[2024-05-10 16:52] LABS: Glucose,Whole Blood 169 mg/dL (70-110)
[2024-05-10 20:23] LABS: Glucose,Whole Blood 128 mg/dL (70-110)
--- NOTE | 2024-05-10 21:24 | P.PN ---
Subjective Progress Note Date: 05/10/24 Principal diagnosis: Reason for follow-up is VRE bacteremia and left lateral malleolar osteomyelitis Patient is a 68-year-old male with multiple comorbidities he did have a left lateral malleolar osteomyelitis diagnosed back in March culture positive for E. coli Enterobacter for which the patient was treated with Zosyn patient subsequently left the longterm and was not clear he was given antibiotics at home presenting to the hospital with decreased level of responsiveness has been diagnosed with VRE bacteremia likely related to the PICC line which has been dis continued and did have extensive wound to the left lateral malleolus as well as left big toe, patient is status post Left above-knee amputation and Right lower extremity great toe partial amputation completed by vascular surgery on 05/05/2024. On today's evaluation that is 05/10/2024, the patient continues to be afebrile, the patient is on room air and breathing comfortably, the Pt denies having any chest pain or cough, the patient denies having any abdominal pain no vomiting or any diarrhea has been reported by the nursing staff patient has developed some blistering and swelling to the right lower extremity. Patient white count is down to 12.5, creatinine 0.81 Objective - Vital Signs Vital signs: Vital Signs Temp 97.8 F 05/10/24 08:55 Pulse 96 05/10/24 12:00 Resp 16 05/10/24 12:00 BP 119/67 05/10/24 12:00 Pulse Ox 98 05/10/24 12:00 FiO2 Intake & Output 05/09/24 05/10/24 05/10/24 18:59 06:59 18:59 Intake Total 920 780 Output Total 150 Balance 920 -150 780 Intake: Intake, IV Titration 100 Amount Piperacillin-Tazobactam 3 100 .375 gm In Sodium Chloride 0.9% 100 ml @ 25 mls/hr IVPB Q8HR@0600, 1400,2200 [facility] Rx#: [id number] Oral 820 780 Output: Urine 150 Other: Voiding Method Urinal Urinal Urinal # Voids 200 # Bowel Movements 1 - Exam GENERAL DESCRIPTION: An elderly male lying in bed in no distress RESPIRATORY SYSTEM: Unlabored breathing , decreased breath sounds at bases HEART: S1 S2 regular rate and rhythm , ABDOMEN: Soft , no tenderness, EXTREMITIES: Left AKA stump and right foot is currently dressed - Labs CBC & Chem 7: 05/10/24 07:37 05/10/24 07:37 Labs: Abnormal Lab Results - Last 24 Hours (Table) 05/09/24 05/09/24 05/09/24 Range/Units 15:08 15:08 16:51 WBC 18.8 H (3.8-10.6) k/uL RBC 2.98 L (4.30-5.90) m/uL Hgb 7.7 L (13.0-17.5) gm/dL Hct 23.6 L (39.0-53.0) % MCV 79.2 L (80.0-100.0) fL RDW 17.0 H (11.5-15.5) % Neutrophils # 16.4 H (1.3-7.7) k/uL Sodium 136 L (137-145) mmol/L Chloride 109 H (98-107) mmol/L Glucose 136 H (74-99) mg/dL POC Glucose (mg/dL) 196 H (70-110) mg/dL C-Reactive Protein (<1.0) mg/dL 05/09/24 05/10/24 05/10/24 Range/Units 20:14 05:53 07:37 WBC 12.5 H (3.8-10.6) k/uL RBC 3.02 L (4.30-5.90) m/uL Hgb 7.8 L (13.0-17.5) gm/dL Hct 24.1 L (39.0-53.0) % MCV 79.9 L (80.0-100.0) fL RDW 17.4 H (11.5-15.5) % Neutrophils # 10.8 H (1.3-7.7) k/uL Sodium (137-145) mmol/L Chloride (98-107) mmol/L Glucose (74-99) mg/dL POC Glucose (mg/dL) 175 H 176 H (70-110) mg/dL C-Reactive Protein (<1.0) mg/dL 05/10/24 05/10/24 05/10/24 Range/Units 07:37 11:47 13:47 WBC (3.8-10.6) k/uL RBC (4.30-5.90) m/uL Hgb (13.0-17.5) gm/dL Hct (39.0-53.0) % MCV (80.0-100.0) fL RDW (11.5-15.5) % Neutrophils # (1.3-7.7) k/uL Sodium 134 L (137-145) mmol/L Chloride 109 H (98-107) mmol/L Glucose 152 H (74-99) mg/dL POC Glucose (mg/dL) 218 H 182 H (70-110) mg/dL C-Reactive Protein 14.5 H (<1.0) mg/dL Assessment and Plan (1) VRE bacteremia Current Visit: Yes Status: Acute Code(s): R78.81 - BACTEREMIA; B95.2 - ENTEROCOCCUS THE CAUSE OF DISEASES CLASSIFIED ELSEWHERE; Z16.21 - RESISTANCE TO VANCOMYCIN SNOMED Code(s): 5416877959 (2) Foot osteomyelitis, left Current Visit: Yes Status: Acute Code(s): M86.9 - OSTEOMYELITIS, UNSPECIFIED SNOMED Code(s): 3720649861261450 Plan: 1patient with VRE bacteremia source likely PICC line which has been discontinued currently waiting for the PICC line tip as well as repeat blood cultures to be finalized, patient to continue with Zyvox to finish a 2-week course from negative blood culture 2patient did have a stage III right gluteal wound local wound care with [facility] followed by moist dressing keep the area of the pressure 3-patient is status post left [id number] amputation and partial amputation of the right big toe, patient is currently covered with Zosyn patient did have improvement in his white count and will monitor clinical course closely Dictation was produced using [email or web address] dictation software. please excuse any g rammatical, word or spelling errors. Time with Patient: Less than 30
--- NOTE | 2024-05-10 23:32 | P.PN ---
Subjective Progress Note Date: 05/09/24 Pleasant 68-year-old male who had outpatient therapy of a left malleolar wound. Wound to the left arredondo as well as the right great toe. There is concern for gangrenous changes in a patient with peripheral arterial disease. Vascular surgery was consulted to evaluate this patient for possible amputation of the right great toe and also surgical debridement of the left ankle wound. ID has been following closely. We are unable to locate the left ankle wound culture at this time and will need surgical cultures taken during debridement. He had positive blood cultures for VRE. Per lab the most recent blood cultures are negative as well as the PICC line tip. 05/03/2024 Patient is seen and evaluated in follow-up with infectious disease following. Patient maintained on antibiotics and will likely transition to oral. Vascular surgery consulted to evaluate for possible amputation of the right great toe and also possible surgical debridement of the left arredondo wound. Patient continues to have some lower extremity swelling more so on the left and reports his pain is 7/10 on the pain scale. Patient with significant weakness working on going to [facility] and would like to go to [facility]. Will await vascular surgery consultation and evaluation to consider discharge planning moving forward. Patient is cu rrently afebrile. Patient will require insurance authorization as well once discharge planning is in progress. 05/04/2024 Patient is evaluated in follow up today on the medical floor. He is scheduled to undergo left above the knee amputation tomorrow. Abdominal ultrasound was completed yesterday with no evidence of obstructive uropathy gallbladder is WNL. Renal function WNL. 05/05/2024 Patient is evaluated in follow-up on the medical floor he is scheduled to undergo left yigrn-[id number] amputation today as well as right toe debridement and possible amputation. His renal function remains normal. Hemoglobin A1c is 6.8. Blood pressure better at 120/85. 05/06/2024 Patient is postoperative day #1 left above the knee amputation and partial right great toe amputation. He states pain is fairly controlled at this time. He continues on IV zosyn. White count is 12.5. hgb 8.7. Sodium 135. BP 148/72. 05/07/2024 Patient is evaluated today postoperative day #2 left above the knee amputation a nd partial right great toe amputation. He has no acute complaints today. Continues on IV zosyn. White blood cell count 12.5, hgb 8.7, Sodium 135, renal function normal. No plans for discharge until Friday per vascular. 05/08/2024 Patient is currently sitting on side of the bed. Awake alert and oriented x 3. On room air. Complains of pain in his surgical site. Patient is postoperative day 3 left AKKamla Denied any complaints of chest pain or shortness of breath. No nausea vomiting abdominal pain or diarrhea. No cough or sputum production. Laboratory data reviewed from yesterday. Blood sugars fairly controlled. Patient is on antibiotics in the form of Zosyn. ID is on board. Patient is complaining of pain at the surgical site. Fairly controlled with medications. 05/09/2024 Patient is sitting on the side of the bed. Awake alert and oriented x 3. No complaints of chest pain. Left AKA amputation site is bandaged. Pain is improved. No complaints of nausea vomiting or abdominal pain. No diarrhea. Patient otherwise having right lower extremity swelling and blister formation. Wound dressing was done. Laboratory data showed WBC 18.8 hemoglobin 7.7 and johnson telets 259 sodium 136 potassium 4.4 chloride 109 bicarb is 23 BUN 13 and creatinine 0.84 and blood sugar 136 and calcium 8.6. Vascular surgery and ID is on board. Patient remains on antibiotics in the form of Zosyn and Zyvox. Review of Systems Constitutional: Denied any fatigue denied any fever. Cardio vascular: denied any chest pain, palpitations Gastrointestinal: denied any nausea, vomiting, diarrhea Pulmonary: Denied any shortness of breath cough Neurologic denied any new focal deficits All inpatient medications were reviewed and appropriate changes in these medications as dictated in the interval history and assessment and plan. PHYSICAL EXAMINATION: GENERAL: The patient is alert and oriented x3, not in any acute distress. Well developed, well nourished. HEENT: Pupils are round and equally reacting to light. EOMI. No scleral icterus. No conjunctival pallor. Normocephalic, atraumatic. No pharyngeal erythema. No thyromegaly. CARDIOVASCULAR: S1 and S2 present. No murmurs, rubs, or gallops. PULMONARY: Chest is clear to auscultation, no wheezing or crackles. ABDOMEN: Soft, nontender, nondistended, normoactive bowel sounds. No palpable organomegaly. MUSCULOSKELETAL: No joint swelling or deformity. EXTREMITIES: Left AKA wound is packed. Right lower extremity edema and foot wound.. NEUROLOGICAL: Gross neurological examination did not reveal any focal deficits. Diffusely weak. SKIN: No rashes. Right great toe wound. Assessment: -VRE bacteremia secondary to PICC line, has been discontinued. -Left malleolar wound underlying osteomyelitis and sepsis, present on admission s/p Left AKA and right great toe partial amputation secondary to gangrenous right great toe. -Episode of VTach/SVT resolved -Chronic heart failure with reduced EF 25-30%. -NSTEMI type 2 -Coronary artery disease with previous CABG and multiple stents -Acute kidney injury, resolved. -Hx of peripheral arterial disease with prior bypass -Diabetes mellitus type 2 -History of stroke 2020 with left sided deficits -Hx hypertension -Hyperlipidemia -Hx of peripheral neuropathy GI prophylaxis DVT prophylaxis Full Code Plan -Continue with pain management with [place]. -Still waiting for left malleolar culture should be faxed over by micro lab today if available. -Continues on IV zosyn and linezolid -Cardiology has signed off at this time -Continue aspirin/brilinta -Blood pressure has been dropping into the 100s systolic. Lisinopril has been decreased with parameters. Discontinued hydralazine. -Monitor renal function and repeat labs in the AM -PT/OT consultation in place as plan is for patient to go to [facility] once discharge planning is in progress. Patient will also require insurance authorization. Plan is for discharge to [facility] Objective - Vital Signs Vital signs: Vital Signs Temp 98 F 05/09/24 15:35 Pulse 102 H 05/09/24 15:35 Resp 16 05/09/24 15:35 BP 92/54 05/09/24 15:35 Pulse Ox 96 05/09/24 15:35 FiO2 Intake & Output 05/09/24 05/09/24 05/10/24 06:59 18:59 06:59 Intake Total 920 Output Total 700 Balance -700 920 Weight 59.5 kg Intake: Intake, IV Titration 100 Amount Piperacillin-Tazobactam 3 100 .375 gm In Sodium Chloride 0.9% 100 ml @ 25 mls/hr IVPB Q8HR@0600, 1400,2200 [facility] Rx#: [id number] Oral 820 Output: Urine 700 Other: Voiding Method Urinal Urinal # Bowel Movements 1 - Labs CBC & Chem 7: 05/13/24 07:33 05/13/24 07:33 Labs: Abnormal Lab Results - Last 24 Hours (Table) 05/09/24 05/09/24 05/09/24 Range/Units 01:50 06:09 11:37 WBC (3.8-10.6) k/uL RBC (4.30-5.90) m/uL Hgb (13.0-17.5) gm/dL Hct (39.0-53.0) % MCV (80.0-100.0) fL RDW (11.5-15.5) % Neutrophils # (1.3-7.7) k/uL Sodium (137-145) mmol/L Chloride (98-107) mmol/L Glucose (74-99) mg/dL POC Glucose (mg/dL) 181 H 174 H 170 H (70-110) mg/dL 05/09/24 05/09/24 05/09/24 Range/Units 15:08 15:08 16:51 WBC 18.8 H (3.8-10.6) k/uL RBC 2.98 L (4.30-5.90) m/uL Hgb 7.7 L (13.0-17.5) gm/dL Hct 23.6 L (39.0-53.0) % MCV 79.2 L (80.0-100.0) fL RDW 17.0 H (11.5-15.5) % Neutrophils # 16.4 H (1.3-7.7) k/uL Sodium 136 L (137-145) mmol/L Chloride 109 H (98-107) mmol/L Glucose 136 H (74-99) mg/dL POC Glucose (mg/dL) 196 H (70-110) mg/dL 05/09/24 Range/Units 20:14 WBC (3.8-10.6) k/uL RBC (4.30-5.90) m/uL Hgb (13.0-17.5) gm/dL Hct (39.0-53.0) % MCV (80.0-100.0) fL RDW (11.5-15.5) % Neutrophils # (1.3-7.7) k/uL Sodium (137-145) mmol/L Chloride (98-107) mmol/L Glucose (74-99) mg/dL POC Glucose (mg/dL) 175 H (70-110) mg/dL
--- NOTE | 2024-05-10 23:35 | P.PN ---
Subjective Progress Note Date: 05/10/24 Pleasant 68-year-old male who had outpatient therapy of a left malleolar wound. Wound to the left arredondo as well as the right great toe. There is concern for gangrenous changes in a patient with peripheral arterial disease. Vascular surgery was consulted to evaluate this patient for possible amputation of the right great toe and also surgical debridement of the left ankle wound. ID has been following closely. We are unable to locate the left ankle wound culture at this time and will need surgical cultures taken during debridement. He had positive blood cultures for VRE. Per lab the most recent blood cultures are negative as well as the PICC line tip. 05/03/2024 Patient is seen and evaluated in follow-up with infectious disease following. Patient maintained on antibiotics and will likely transition to oral. Vascular surgery consulted to evaluate for possible amputation of the right great toe and also possible surgical debridement of the left arredondo wound. Patient continues to have some lower extremity swelling more so on the left and reports his pain is 7/10 on the pain scale. Patient with significant weakness working on going to [facility] and would like to go to [facility]. Will await vascular surgery consultation and evaluation to consider discharge planning moving forward. Patient is cu rrently afebrile. Patient will require insurance authorization as well once discharge planning is in progress. 05/04/2024 Patient is evaluated in follow up today on the medical floor. He is scheduled to undergo left above the knee amputation tomorrow. Abdominal ultrasound was completed yesterday with no evidence of obstructive uropathy gallbladder is WNL. Renal function WNL. 05/05/2024 Patient is evaluated in follow-up on the medical floor he is scheduled to undergo left [id number]-[id number] amputation today as well as right toe debridement and possible amputation. His renal function remains normal. Hemoglobin A1c is 6.8. Blood pressure better at 120/85. 05/06/2024 Patient is postoperative day #1 left above the knee amputation and partial right great toe amputation. He states pain is fairly controlled at this time. He continues on IV zosyn. White count is 12.5. hgb 8.7. Sodium 135. BP 148/72. 05/07/2024 Patient is evaluated today postoperative day #2 left above the knee amputation a nd partial right great toe amputation. He has no acute complaints today. Continues on IV zosyn. White blood cell count 12.5, hgb 8.7, Sodium 135, renal function normal. No plans for discharge until Friday per vascular. 05/08/2024 Patient is currently sitting on side of the bed. Awake alert and oriented x 3. On room air. Complains of pain in his surgical site. Patient is postoperative day 3 left AKA Denied any complaints of chest pain or shortness of breath. No nausea vomiting abdominal pain or diarrhea. No cough or sputum production. Laboratory data reviewed from yesterday. Blood sugars fairly controlled. Patient is on antibiotics in the form of Zosyn. ID is on board. Patient is complaining of pain at the surgical site. Fairly controlled with medications. 05/09/2024 Patient is sitting on the side of the bed. Awake alert and oriented x 3. No complaints of chest pain. Left AKA amputation site is bandaged. Pain is improved. No complaints of nausea vomiting or abdominal pain. No diarrhea. Patient otherwise having right lower extremity swelling and blister formation. Wound dressing was done. Laboratory data showed WBC 18.8 hemoglobin 7.7 and johnson telets 259 sodium 136 potassium 4.4 chloride 109 bicarb is 23 BUN 13 and creatinine 0.84 and blood sugar 136 and calcium 8.6. Vascular surgery and ID is on board. Patient remains on antibiotics in the form of Zosyn and Zyvox. 05/10/2024 Patient is sitting on side of bed. Advised to elevate right lower extremity. Significant swelling of the right lower extremity with blister formation. Overall pain is controlled. No fever no chills. Laboratory data showed WBC improved to 12.5 hemoglobin 7.8 and platelets 237 RDW 17.4 BUN 9 and creatinine 0.81 and CRP 14.5. Blood sugar is controlled. Patient is on antibiotics Zosyn and Zyvox. Blood pressure is marginal. Review of Systems Constitutional: Denied any fatigue denied any fever. Cardio vascular: denied any chest pain, palpitations Gastrointestinal: denied any nausea, vomiting, diarrhea Pulmonary: Denied any shortness of breath cough Neurologic denied any new focal deficits All inpatient medications were reviewed and appropriate changes in these medications as dictated in the interval history and assessment and plan. PHYSICAL EXAMINATION: GENERAL: The patient is alert and oriented x3, not in any acute distress. Well developed, well nourished. HEENT: Pupils are round and equally reacting to light. EOMI. No scleral icterus. No conjunctival pallor. Normocephalic, atraumatic. No pharyngeal erythema. No thyromegaly. CARDIOVASCULAR: S1 and S2 present. No murmurs, rubs, or gallops. PULMONARY: Chest is clear to auscultation, no wheezing or crackles. ABDOMEN: Soft, nontender, nondistended, normoactive bowel sounds. No palpable organomegaly. MUSCULOSKELETAL: No joint swelling or deformity. EXTREMITIES: Left AKA wound is packed. Right lower extremity edema and foot wound.. NEUROLOGICAL: Gross neurological examination did not reveal any focal deficits. Diffusely weak. SKIN: No rashes. Left AKA site wound. Right great toe wound. Assessment: -VRE bacteremia secondary to PICC line, has been discontinued. -Left malleolar wound underlying osteomyelitis and sepsis, present on admission s/p Left AKA and right great toe partial amputation secondary to gangrenous right great toe. -Episode of VTach/SVT resolved -Chronic heart failure with reduced EF 25-30%. -NSTEMI type 2 -Coronary artery disease with previous CABG and multiple stents -Acute kidney injury, resolved. -Hx of peripheral arterial disease with prior bypass -Diabetes mellitus type 2 -History of stroke 2020 with left sided deficits -Hx hypertension -Hyperlipidemia -Hx of peripheral neuropathy GI prophylaxis DVT prophylaxis Full Code Plan -Continue with pain management with [place]. -Still waiting for left malleolar culture should be faxed over by micro lab today if available. -Continues on IV zosyn and linezolid -Cardiology has signed off at this time -Continue aspirin/brilinta -Blood pressure has been dropping into the 100s systolic. Lisinopril has been decreased with parameters. Discontinued hydralazine. -Monitor renal function and repeat labs in the AM -PT/OT consultation in place as plan is for patient to go to [facility] once discharge planning is in progress. Patient will also require insurance authorization. Plan is for discharge to [facility] Objective - Vital Signs Vital signs: Vital Signs Temp 98.3 F 05/10/24 20:08 Pulse 98 05/10/24 20:08 Resp 16 05/10/24 20:08 BP 98/55 05/10/24 20:08 Pulse Ox 100 05/10/24 20:08 FiO2 Intake & Output 05/10/24 05/10/24 05/11/24 06:59 18:59 06:59 Intake Total 1440 Output Total 150 500 Balance -150 940 Intake: Oral 1440 Output: Urine 150 500 Other: Voiding Method Urinal Urinal Urinal # Voids 200 - Labs CBC & Chem 7: 05/13/24 07:33 05/13/24 07:33 Labs: Abnormal Lab Results - Last 24 Hours (Table) 05/10/24 05/10/24 05/10/24 Range/Units 05:53 07:37 07:37 WBC 12.5 H (3.8-10.6) k/uL RBC 3.02 L (4.30-5.90) m/uL Hgb 7.8 L (13.0-17.5) gm/dL Hct 24.1 L (39.0-53.0) % MCV 79.9 L (80.0-100.0) fL RDW 17.4 H (11.5-15.5) % Neutrophils # 10.8 H (1.3-7.7) k/uL Sodium 134 L (137-145) mmol/L Chloride 109 H (98-107) mmol/L Glucose 152 H (74-99) mg/dL POC Glucose (mg/dL) 176 H (70-110) mg/dL C-Reactive Protein 14.5 H (<1.0) mg/dL 05/10/24 05/10/24 05/10/24 Range/Units 11:47 13:47 16:50 WBC (3.8-10.6) k/uL RBC (4.30-5.90) m/uL Hgb (13.0-17.5) gm/dL Hct (39.0-53.0) % MCV (80.0-100.0) fL RDW (11.5-15.5) % Neutrophils # (1.3-7.7) k/uL Sodium (137-145) mmol/L Chloride (98-107) mmol/L Glucose (74-99) mg/dL POC Glucose (mg/dL) 218 H 182 H 169 H (70-110) mg/dL C-Reactive Protein (<1.0) mg/dL 05/10/24 Range/Units 20:12 WBC (3.8-10.6) k/uL RBC (4.30-5.90) m/uL Hgb (13.0-17.5) gm/dL Hct (39.0-53.0) % MCV (80.0-100.0) fL RDW (11.5-15.5) % Neutrophils # (1.3-7.7) k/uL Sodium (137-145) mmol/L Chloride (98-107) mmol/L Glucose (74-99) mg/dL POC Glucose (mg/dL) 128 H (70-110) mg/dL C-Reactive Protein (<1.0) mg/dL
[2024-05-11 06:25] LABS: Glucose,Whole Blood 139 mg/dL (70-110)
[2024-05-11] MEDS: FUROSEMIDE 10 MG/ML 2 ML VIAL IV SCH (08:20)
[2024-05-11 09:32] LABS: Anisocytosis Slight; Basophils % (A) 0 %; Eosinophils # (A) 0.1 k/uL (0-0.7); Eosinophils % (A) 0 %; HCT 23.4 % (39.0-53.0); HGB 7.6 gm/dL (13.0-17.5); Hypochromasia Moderate; Lymphocytes # (A) 1.2 k/uL (1.0-4.8); Lymphocytes % (A) 8 %; MCH 25.8 pg (25.0-35.0); MCHC 32.3 g/dL (31.0-37.0); MCV 79.7 fL (80.0-100.0); Mean Platelet Volume 8.9; Monocytes # (A) 0.3 k/uL (0-1.0); Monocytes % (A) 2 %; Neutrophils # (A) 13.4 k/uL (1.3-7.7); Neutrophils % (A) 89 %; Platelet Count 243 k/uL (150-450); RBC 2.94 m/uL (4.30-5.90); WBC 15.1 k/uL (3.8-10.6)
--- NOTE | 2024-05-11 09:35 | P.PN ---
Subjective Progress Note Date: 05/11/24 Principal diagnosis: Chronic left lower extremity wound and right great toe wound Patient seen and examined today as a follow-up. No acute changes. No new complaints. Awaiting placement he believes to [facility]. Pain has been well- managed. Rigid dressing in place. Objective - Vital Signs Vital signs: Vital Signs Temp 98.6 F 05/11/24 07:52 Pulse 104 H 05/11/24 07:52 Resp 14 05/11/24 07:52 BP 136/65 05/11/24 07:52 Pulse Ox 100 05/11/24 07:52 FiO2 Intake & Output 05/10/24 05/11/24 05/11/24 18:59 06:59 18:59 Intake Total 1440 118 Output Total 500 550 Balance 940 -550 118 Weight 58.6 kg Intake: Oral 1440 118 Output: Urine 500 550 Other: Voiding Method Urinal Urinal - Exam General appearance: The patient is alert, oriented, appears in no acute distress. HET: Head is normocephalic and atraumatic. Neck: Supple. Abdomen: Soft, nondistended. Extremities: Left AKA with rigid dressing in place. Right foot with dressing clean dry and intact Neurological: No focal deficits. - Labs CBC & Chem 7: 05/10/24 07:37 05/10/24 07:37 Labs: Abnormal Lab Results - Last 24 Hours (Table) 05/10/24 05/10/24 05/10/24 Range/Units 11:47 13:47 16:50 POC Glucose (mg/dL) 218 H 182 H 169 H (70-110) mg/dL 05/10/24 05/11/24 Range/Units 20:12 06:22 POC Glucose (mg/dL) 128 H 139 H (70-110) mg/dL Assessment and Plan Assessment: 1. Postop day #6 left AKA, right toe debridement 2. Chronic left lower extremity leg wound 3. VRE bacteremia 4. Chronic right great toe wound 5. Severe peripheral arterial disease, critical limb ischemia Plan: 1. Continue with PT and OT 2. Continue with stump records management technician and rigid dressing to left AKA 3. Continue local wound care to right great toe as ordered 4. Patient is awaiting placement Thank you for this consultation, we will sign off at this time. Patient instructed to follow-up with Dr. Velez in 2 weeks.
[2024-05-11 10:00] LABS: African American GFR (CKD) >90 (>60 ml/min/1.73 sqM); Anion Gap 4 mmol/L; Blood Urea Nitrogen 12 mg/dL (9-20); Calcium 8.4 mg/dL (8.4-10.2); Carbon Dioxide 23 mmol/L (22-30); Chloride 106 mmol/L (98-107); Glucose 172 mg/dL (74-99); Non-African American GFR(CKD) 88 (>60 ml/min/1.73 sqM); Potassium 4.3 mmol/L (3.5-5.1); Sodium 133 mmol/L (137-145)
[2024-05-11 11:51] LABS: Glucose,Whole Blood 187 mg/dL (70-110)
[2024-05-11] MEDS ORDERED: HYDROmorphone 1 MG/ML 1 ML SYRINGE IVP PRN (13:12)
--- NOTE | 2024-05-11 16:12 | P.PN ---
Subjective Progress Note Date: 05/11/24 Principal diagnosis: Reason for follow-up is VRE bacteremia and left lateral malleolar osteomyelitis Patient is a 68-year-old male with multiple comorbidities he did have a left lateral malleolar osteomyelitis diagnosed back in March culture positive for E. coli Enterobacter for which the patient was treated with Zosyn patient subsequently left the half-way and was not clear he was given antibiotics at home presenting to the hospital with decreased level of responsiveness has been diagnosed with VRE bacteremia likely related to the PICC line which has been dis continued and did have extensive wound to the left lateral malleolus as well as left big toe, patient is status post Left above-knee amputation and Right lower extremity great toe partial amputation completed by vascular surgery on 05/05/2024. On today's evaluation that is 05/11/2024, Patient is afebrile patient is currently on room air and denies having any shortness of breath, the patient denies any chest pain or cough, the patient denies any nausea vomiting did not have any abdominal pain and no diarrhea, pain to the left AKA and right foot is currently controlled. Patient white count is 15.1, creatinine 0.85 Objective - Vital Signs Vital signs: Vital Signs Temp 98 F 05/11/24 11:10 Pulse 90 05/11/24 15:39 Resp 17 05/11/24 15:39 BP 153/86 05/11/24 15:39 Pulse Ox 98 05/11/24 15:39 FiO2 Intake & Output 05/10/24 05/11/24 05/11/24 18:59 06:59 18:59 Intake Total 1440 246 Output Total 500 550 475 Balance 940 -550 -229 Weight 58.6 kg Intake: IV 10 Invasive Line 5 10 Oral 1440 236 Output: Urine 500 550 475 Other: Voiding Method Urinal Urinal Urinal - Exam GENERAL DESCRIPTION: An elderly male lying in bed in no distress RESPIRATORY SYSTEM: Unlabored breathing , decreased breath sounds at bases HEART: S1 S2 regular rate and rhythm , ABDOMEN: Soft , no tenderness, EXTREMITIES: Left AKA stump is currently dressed left big toe partial amputation with a wound on the dorsum with no slough tissue - Labs CBC & Chem 7: 05/11/24 09:19 05/11/24 09:19 Labs: Abnormal Lab Results - Last 24 Hours (Table) 0905/10/24 05/11/24 Range/Units 16:50 20:12 06:22 WBC (3.8-10.6) k/uL RBC (4.30-5.90) m/uL Hgb (13.0-17.5) gm/dL Hct (39.0-53.0) % MCV (80.0-100.0) fL RDW (11.5-15.5) % Neutrophils # (1.3-7.7) k/uL Sodium (137-145) mmol/L Glucose (74-99) mg/dL POC Glucose (mg/dL) 169 H 128 H 139 H (70-110) mg/dL 05/11/24 05/11/24 05/11/24 Range/Units 09:19 09:19 11:50 WBC 15.1 H (3.8-10.6) k/uL RBC 2.94 L (4.30-5.90) m/uL Hgb 7.6 L (13.0-17.5) gm/dL Hct 23.4 L (39.0-53.0) % MCV 79.7 L (80.0-100.0) fL RDW 17.0 H (11.5-15.5) % Neutrophils # 13.4 H (1.3-7.7) k/uL Sodium 133 L (137-145) mmol/L Glucose 172 H (74-99) mg/dL POC Glucose (mg/dL) 187 H (70-110) mg/dL Assessment and Plan (1) VRE bacteremia Current Visit: Yes Status: Acute Code(s): R78.81 - BACTEREMIA; B95.2 - ENTEROCOCCUS THE CAUSE OF DISEASES CLASSIFIED ELSEWHERE; Z16.21 - RESISTANCE TO VANCOMYCIN SNOMED Code(s): 2601411001 (2) Foot osteomyelitis, left Current Visit: Yes Status: Acute Code(s): M86.9 - OSTEOMYELITIS, UNSPECIFIED SNOMED Code(s): 6830918812413607 Plan: 1patient with VRE bacteremia source likely PICC line which has been discontinued currently waiting for the PICC line tip as well as repeat blood cultures to be finalized, patient to continue with Zyvox to finish a 2-week course from negative blood culture 2patient did have a stage III right gluteal wound local wound care with [facility] followed by moist dressing keep the area of the pressure 3-patient is status post left [id number] amputation and partial amputation of the right big toe overall wound base looks clean white count is still low which is slightly concerning we will add Diflucan continue Zosyn repeat CBC with a.m. lab Dictation was produced using [employer] dictation software. please excuse any grammatical, word or spelling errors. Time with Patient: Less than 30
[2024-05-11 16:39] LABS: Glucose,Whole Blood 162 mg/dL (70-110)
[2024-05-11] MEDS: FLUCONAZOLE 100 MG TAB PO SCH (16:55)
[2024-05-11 20:18] LABS: Glucose,Whole Blood 106 mg/dL (70-110)
[2024-05-11 21:14] LABS: % Iron Saturation 41.76 (15.00-50.00); Iron 76 UG/DL (65-175); Total Iron Binding Capacity 182 UG/DL (228-460)
[2024-05-12 06:13] LABS: Glucose,Whole Blood 134 mg/dL (70-110)
[2024-05-12 08:01] LABS: Anisocytosis Slight; Basophils # (A) 0.1 k/uL (0-0.2); Basophils % (A) 0 %; Eosinophils % (A) 0 %; HCT 25.2 % (39.0-53.0); HGB 7.9 gm/dL (13.0-17.5); Hypochromasia Marked; Lymphocytes % (A) 7 %; MCH 25.2 pg (25.0-35.0); MCHC 31.2 g/dL (31.0-37.0); MCV 80.7 fL (80.0-100.0); Mean Platelet Volume 8.5; Monocytes # (A) 0.3 k/uL (0-1.0); Monocytes % (A) 2 %; Neutrophils # (A) 12.6 k/uL (1.3-7.7); Neutrophils % (A) 90 %; Platelet Count 278 k/uL (150-450); RBC 3.13 m/uL (4.30-5.90)
[2024-05-12 08:39] LABS: ALT 21 U/L (4-49); AST 28 U/L (17-59); African American GFR (CKD) >90 (>60 ml/min/1.73 sqM); Albumin 2.8 g/dL (3.5-5.0); Alkaline Phosphatase 90 U/L (38-126); Anion Gap 8 mmol/L; Blood Urea Nitrogen 13 mg/dL (9-20); Calcium 8.5 mg/dL (8.4-10.2); Carbon Dioxide 21 mmol/L (22-30); Chloride 104 mmol/L (98-107); Glucose 148 mg/dL (74-99); Non-African American GFR(CKD) 83 (>60 ml/min/1.73 sqM); Potassium 4.1 mmol/L (3.5-5.1); Sodium 133 mmol/L (137-145); Total Bilirubin 0.9 mg/dL (0.2-1.3)
[2024-05-12 10:46] LABS: C Reactive Protein 18.5 mg/dL (<1.0)
[2024-05-12 11:21] LABS: Glucose,Whole Blood 243 mg/dL (70-110)
[2024-05-12 16:52] LABS: Glucose,Whole Blood 154 mg/dL (70-110)
[2024-05-12 20:12] LABS: Glucose,Whole Blood 207 mg/dL (70-110)
--- NOTE | 2024-05-13 00:18 | P.PN ---
Subjective Progress Note Date: 05/11/24 Pleasant 68-year-old male who had outpatient therapy of a left malleolar wound. Wound to the left arredondo as well as the right great toe. There is concern for gangrenous changes in a patient with peripheral arterial disease. Vascular surgery was consulted to evaluate this patient for possible amputation of the right great toe and also surgical debridement of the left ankle wound. ID has been following closely. We are unable to locate the left ankle wound culture at this time and will need surgical cultures taken during debridement. He had positive blood cultures for VRE. Per lab the most recent blood cultures are negative as well as the PICC line tip. 05/03/2024 Patient is seen and evaluated in follow-up with infectious disease following. Patient maintained on antibiotics and will likely transition to oral. Vascular surgery consulted to evaluate for possible amputation of the right great toe and also possible surgical debridement of the left arredondo wound. Patient continues to have some lower extremity swelling more so on the left and reports his pain is 7/10 on the pain scale. Patient with significant weakness [facility] and would like to go to [facility]. Will await vascular surgery consultation and evaluation to consider discharge planning moving forward. Patient is cu rrently afebrile. Patient will require insurance authorization as well once discharge planning is in progress. 05/04/2024 Patient is evaluated in follow up today on the medical floor. He is scheduled to undergo left above the knee amputation tomorrow. Abdominal ultrasound was completed yesterday with no evidence of obstructive uropathy gallbladder is WNL. Renal function WNL. 05/05/2024 Patient is evaluated in follow-up on the medical floor he is scheduled to undergo left [id number] amputation today as well as right toe debridement and possible amputation. His renal function remains normal. Hemoglobin A1c is 6.8. Blood pressure better at 120/85. 05/06/2024 Patient is postoperative day #1 left above the knee amputation and partial right great toe amputation. He states pain is fairly controlled at this time. He continues on IV zosyn. White count is 12.5. hgb 8.7. Sodium 135. BP 148/72. 05/07/2024 Patient is evaluated today postoperative day #2 left above the knee amputation a nd partial right great toe amputation. He has no acute complaints today. Continues on IV zosyn. White blood cell count 12.5, hgb 8.7, Sodium 135, renal function normal. No plans for discharge until Friday per vascular. 05/08/2024 Patient is currently sitting on side of the bed. Awake alert and oriented x 3. On room air. Complains of pain in his surgical site. Patient is postoperative day 3 left MIKE Denied any complaints of chest pain or shortness of breath. No nausea vomiting abdominal pain or diarrhea. No cough or sputum production. Laboratory data reviewed from yesterday. Blood sugars fairly controlled. Patient is on antibiotics in the form of Zosyn. ID is on board. Patient is complaining of pain at the surgical site. Fairly controlled with medications. 05/09/2024 Patient is sitting on the side of the bed. Awake alert and oriented x 3. No complaints of chest pain. Left AKA amputation site is bandaged. Pain is improved. No complaints of nausea vomiting or abdominal pain. No diarrhea. Patient otherwise having right lower extremity swelling and blister formation. Wound dressing was done. Laboratory data showed WBC 18.8 hemoglobin 7.7 and johnson telets 259 sodium 136 potassium 4.4 chloride 109 bicarb is 23 BUN 13 and creatinine 0.84 and blood sugar 136 and calcium 8.6. Vascular surgery and ID is on board. Patient remains on antibiotics in the form of Zosyn and Zyvox. 05/10/2024 Patient is sitting on side of bed. Advised to elevate right lower extremity. Significant swelling of the right lower extremity with blister formation. Overall pain is controlled. No fever no chills. Laboratory data showed WBC improved to 12.5 hemoglobin 7.8 and platelets 237 RDW 17.4 BUN 9 and creatinine 0.81 and CRP 14.5. Blood sugar is controlled. Patient is on antibiotics Zosyn and Zyvox. Blood pressure is marginal. 05/11/2024 Patient is sitting in the bed. Awake alert and oriented x 3. Right lower extremity swelling is slightly improved. Was given a dose of IV Lasix this morning. No complaints of fever or chills. Pain is controlled. No nausea or vomiting. Tolerating oral diet. Laboratory showed WBC 15.1 hemoglobin 7.6 and platelets 243 sodium 133 potassium 4.3 chloride 106 bicarb is 23 BUN 12 and creatinine 0.82 and blood sugar 172. Patient is on Zosyn, Zyvox and Diflucan was added. Review of Systems Constitutional: Denied any fatigue denied any fever. Cardio vascular: denied any chest pain, palpitations Gastrointestinal: denied any nausea, vomiting, diarrhea Pulmonary: Denied any shortness of breath cough Neurologic denied any new focal deficits All inpatient medications were reviewed and appropriate changes in these med ications as dictated in the interval history and assessment and plan. PHYSICAL EXAMINATION: GENERAL: The patient is alert and oriented x3, not in any acute distress. Well developed, well nourished. HEENT: Pupils are round and equally reacting to light. EOMI. No scleral icterus. No conjunctival pallor. Normocephalic, atraumatic. No pharyngeal erythema. No thyromegaly. CARDIOVASCULAR: S1 and S2 present. No murmurs, rubs, or gallops. PULMONARY: Chest is clear to auscultation, no wheezing or crackles. ABDOMEN: Soft, nontender, nondistended, normoactive bowel sounds. No palpable organomegaly. MUSCULOSKELETAL: No joint swelling or deformity. EXTREMITIES: Left AKA wound is packed. Right lower extremity edema and foot wound.. NEUROLOGICAL: Gross neurological examination did not reveal any focal deficits. Diffusely weak. SKIN: No rashes. Left malleolar wound, left arredondo wound. Right great toe wound. Assessment: -VRE bacteremia secondary to PICC line, has been discontinued. -Left malleolar wound underlying osteomyelitis and sepsis, present on admission s/p Left AKA and right great toe partial amputation secondary to gangrenous right great toe. -Episode of VTach/SVT resolved -Chronic heart failure with reduced EF 25-30%. -NSTEMI type 2 -Coronary artery disease with previous CABG and multiple stents -Acute kidney injury, resolved. -Hx of peripheral arterial disease with prior bypass -Diabetes mellitus type 2 -History of stroke 2020 with left sided deficits -Hx hypertension -Hyperlipidemia -Hx of peripheral neuropathy GI prophylaxis DVT prophylaxis Full Code Plan -Continue with pain management with [place]. -Still waiting for left malleolar culture should be faxed over by micro lab today if available. -Continues on IV zosyn and linezolid. Diflucan was added. -Cardiology has signed off at this time -Continue aspirin/brilinta -Blood pressure has been dropping into the 100s systolic. Lisinopril has been decreased with parameters. Discontinued hydralazine. -Monitor renal function and repeat labs in the AM -PT/OT consultation in place as plan is for patient to go to [facility] once discharge planning is in progress. Patient will also require insurance autho rization. Plan is for discharge to [facility] Objective - Vital Signs Vital signs: Vital Signs Temp 98.9 F 05/11/24 19:50 Pulse 94 05/11/24 19:50 Resp 16 05/11/24 19:50 BP 142/65 05/11/24 19:50 Pulse Ox 96 05/11/24 19:50 FiO2 Intake & Output 05/11/24 05/11/24 05/12/24 06:59 18:59 06:59 Intake Total 364 Output Total 550 475 300 Balance -550 -111 -300 Weight 58.6 kg Intake: IV 10 Invasive Line 5 10 Oral 354 Output: Urine 550 475 300 Other: Voiding Method Urinal Urinal Urinal - Labs CBC & Chem 7: 05/12/24 07:38 05/12/24 07:38 Labs: Abnormal Lab Results - Last 24 Hours (Table) 05/11/24 05/11/24 05/11/24 Range/Units 06:22 09:19 09:19 WBC 15.1 H (3.8-10.6) k/uL RBC 2.94 L (4.30-5.90) m/uL Hgb 7.6 L (13.0-17.5) gm/dL Hct 23.4 L (39.0-53.0) % MCV 79.7 L (80.0-100.0) fL RDW 17.0 H (11.5-15.5) % Neutrophils # 13.4 H (1.3-7.7) k/uL Sodium 133 L (137-145) mmol/L Glucose 172 H (74-99) mg/dL POC Glucose (mg/dL) 139 H (70-110) mg/dL TIBC 182 L (228-460) UG/DL Transferrin 130.0 L (204.0-354.0) mg/dL 05/11/24 05/11/24 Range/Units 11:50 16:37 WBC (3.8-10.6) k/uL RBC (4.30-5.90) m/uL Hgb (13.0-17.5) gm/dL Hct (39.0-53.0) % MCV (80.0-100.0) fL RDW (11.5-15.5) % Neutrophils # (1.3-7.7) k/uL Sodium (137-145) mmol/L Glucose (74-99) mg/dL POC Glucose (mg/dL) 187 H 162 H (70-110) mg/dL TIBC (228-460) UG/DL Transferrin (204.0-354.0) mg/dL
--- NOTE | 2024-05-13 00:19 | P.PN ---
Subjective Progress Note Date: 05/12/24 Pleasant 68-year-old male who had outpatient therapy of a left malleolar wound. Wound to the left arredondo as well as the right great toe. There is concern for gangrenous changes in a patient with peripheral arterial disease. Vascular surgery was consulted to evaluate this patient for possible amputation of the right great toe and also surgical debridement of the left ankle wound. ID has been following closely. We are unable to locate the left ankle wound culture at this time and will need surgical cultures taken during debridement. He had positive blood cultures for VRE. Per lab the most recent blood cultures are negative as well as the PICC line tip. 05/03/2024 Patient is seen and evaluated in follow-up with infectious disease following. Patient maintained on antibiotics and will likely transition to oral. Vascular surgery consulted to evaluate for possible amputation of the right great toe and also possible surgical debridement of the left arredondo wound. Patient continues to have some lower extremity swelling more so on the left and reports his pain is 7/10 on the pain scale. Patient with significant weakness working on going to [facility] and would like to go to [facility]. Will await vascular surgery consultation and evaluation to consider discharge planning moving forward. Patient is cu rrently afebrile. Patient will require insurance authorization as well once discharge planning is in progress. 05/04/2024 Patient is evaluated in follow up today on the medical floor. He is scheduled to undergo left above the knee amputation tomorrow. Abdominal ultrasound was completed yesterday with no evidence of obstructive uropathy gallbladder is WNL. Renal function WNL. 05/05/2024 Patient is evaluated in follow-up on the medical floor he is scheduled to undergo left [id number]-[id number] amputation today as well as right toe debridement and possible amputation. His renal function remains normal. Hemoglobin A1c is 6.8. Blood pressure better at 120/85. 05/06/2024 Patient is postoperative day #1 left above the knee amputation and partial right great toe amputation. He states pain is fairly controlled at this time. He continues on IV zosyn. White count is 12.5. hgb 8.7. Sodium 135. BP 148/72. 05/07/2024 Patient is evaluated today postoperative day #2 left above the knee amputation a nd partial right great toe amputation. He has no acute complaints today. Continues on IV zosyn. White blood cell count 12.5, hgb 8.7, Sodium 135, renal function normal. No plans for discharge until Friday per vascular. 05/08/2024 Patient is currently sitting on side of the bed. Awake alert and oriented x 3. On room air. Complains of pain in his surgical site. Patient is postoperative day 3 left MIKE Denied any complaints of chest pain or shortness of breath. No nausea vomiting abdominal pain or diarrhea. No cough or sputum production. Laboratory data reviewed from yesterday. Blood sugars fairly controlled. Patient is on antibiotics in the form of Zosyn. ID is on board. Patient is complaining of pain at the surgical site. Fairly controlled with medications. 05/09/2024 Patient is sitting on the side of the bed. Awake alert and oriented x 3. No complaints of chest pain. Left AKA amputation site is bandaged. Pain is improved. No complaints of nausea vomiting or abdominal pain. No diarrhea. Patient otherwise having right lower extremity swelling and blister formation. Wound dressing was done. Laboratory data showed WBC 18.8 hemoglobin 7.7 and johnson telets 259 sodium 136 potassium 4.4 chloride 109 bicarb is 23 BUN 13 and creatinine 0.84 and blood sugar 136 and calcium 8.6. Vascular surgery and ID is on board. Patient remains on antibiotics in the form of Zosyn and Zyvox. 05/10/2024 Patient is sitting on side of bed. Advised to elevate right lower extremity. Significant swelling of the right lower extremity with blister formation. Overall pain is controlled. No fever no chills. Laboratory data showed WBC improved to 12.5 hemoglobin 7.8 and platelets 237 RDW 17.4 BUN 9 and creatinine 0.81 and CRP 14.5. Blood sugar is controlled. Patient is on antibiotics Zosyn and Zyvox. Blood pressure is marginal. 05/11/2024 Patient is sitting in the bed. Awake alert and oriented x 3. Right lower extremity swelling is slightly improved. Was given a dose of IV Lasix this morning. No complaints of fever or chills. Pain is controlled. No nausea or vomiting. Tolerating oral diet. Laboratory showed WBC 15.1 hemoglobin 7.6 and platelets 243 sodium 133 potassium 4.3 chloride 106 bicarb is 23 BUN 12 and creatinine 0.82 and blood sugar 172. Patient is on Zosyn, Zyvox and Diflucan was added. 05/12/2024 Patient is lying in the bed. Awake alert and oriented x 3. Pain is controlled. Wound dressing was done yesterday evening. Otherwise laboratory data showed WBC improved to 14.0 hemoglobin 7.9 and platelets 278 sodium 133 potassium 4.1 chloride 104 bicarb is 21 BUN 13 and creatinine 0.93. CRP 18.5. Review of Systems Constitutional: Denied any fatigue denied any fever. Cardio vascular: denied any chest pain, palpitations Gastrointestinal: denied any nausea, vomiting, diarrhea Pulmonary: Denied any shortness of breath cough Neurologic denied any new focal deficits All inpatient medications were reviewed and appropriate changes in these medications as dictated in the interval history and assessment and plan. PHYSICAL EXAMINATION: GENERAL: The patient is alert and oriented x3, not in any acute distress. Well developed, well nourished. HEENT: Pupils are round and equally reacting to light. EOMI. No scleral icterus. No conjunctival pallor. Normocephalic, atraumatic. No pharyngeal erythema. No thyromegaly. CARDIOVASCULAR: S1 and S2 present. No murmurs, rubs, or gallops. PULMONARY: Chest is clear to auscultation, no wheezing or crackles. ABDOMEN: Soft, nontender, nondistended, normoactive bowel sounds. No palpable organomegaly. MUSCULOSKELETAL: No joint swelling or deformity. EXTREMITIES: Left AKA wound is packed. Right lower extremity edema and foot wound.. NEUROLOGICAL: Gross neurological examination did not reveal any focal deficits. Diffusely weak. SKIN: No rashes. Left AKA site wound. Right great toe wound. Assessment: -VRE bacteremia secondary to PICC line, has been discontinued. -Left malleolar wound underlying osteomyelitis and sepsis, present on admission s/p Left AKA and right great toe partial amputation secondary to gangrenous right great toe. -Episode of VTach/SVT resolved -Chronic heart failure with reduced EF 25-30%. -NSTEMI type 2 -Coronary artery disease with previous CABG and multiple stents -Acute kidney injury, resolved. -Hx of peripheral arterial disease with prior bypass -Diabetes mellitus type 2 -History of stroke 2020 with left sided deficits -Hx hypertension -Hyperlipidemia -Hx of peripheral neuropathy GI prophylaxis DVT prophylaxis Full Code Plan -Continue with pain management with [place]. -Follow-up left malleolar culture -Continues on IV zosyn and linezolid. Diflucan was added. -Cardiology has signed off at this time -Continue aspirin/brilinta -Blood pressure has been dropping into the 100s systolic. Lisinopril has been decreased with parameters. Discontinued hydralazine. -Monitor renal function and repeat labs in the AM -PT/OT consultation in place as plan is for patient to go to [facility] once discharge planning is in progress. Patient will also require insurance authorization. Plan is for discharge to [facility] Objective - Vital Signs Vital signs: Vital Signs Temp 98.5 F 05/12/24 20:30 Pulse 93 05/12/24 20:30 Resp 18 05/12/24 20:30 BP 118/53 05/12/24 20:30 Pulse Ox 100 05/12/24 20:30 FiO2 Intake & Output 05/12/24 05/12/24 05/13/24 06:59 18:59 06:59 Intake Total 536 540 Output Total 760 Balance -760 536 540 Weight 57.6 kg Intake: Oral 536 540 Output: Urine 760 Other: Voiding Method Urinal Urinal Urinal # Bowel Movements 1 - Labs CBC & Chem 7: 05/13/24 07:33 05/13/24 07:33 Labs: Abnormal Lab Results - Last 24 Hours (Table) 05/12/24 05/12/24 05/12/24 Range/Units 06:12 07:38 07:38 WBC 14.0 H (3.8-10.6) k/uL RBC 3.13 L (4.30-5.90) m/uL Hgb 7.9 L (13.0-17.5) gm/dL Hct 25.2 L (39.0-53.0) % RDW 17.0 H (11.5-15.5) % Neutrophils # 12.6 H (1.3-7.7) k/uL Sodium 133 L (137-145) mmol/L Carbon Dioxide 21 L (22-30) mmol/L Glucose 148 H (74-99) mg/dL POC Glucose (mg/dL) 134 H (70-110) mg/dL C-Reactive Protein 18.5 H (<1.0) mg/dL Total Protein 6.0 L (6.3-8.2) g/dL Albumin 2.8 L (3.5-5.0) g/dL 05/12/24 05/12/24 05/12/24 Range/Units 11:19 16:51 20:06 WBC (3.8-10.6) k/uL RBC (4.30-5.90) m/uL Hgb (13.0-17.5) gm/dL Hct (39.0-53.0) % RDW (11.5-15.5) % Neutrophils # (1.3-7.7) k/uL Sodium (137-145) mmol/L Carbon Dioxide (22-30) mmol/L Glucose (74-99) mg/dL POC Glucose (mg/dL) 243 H 154 H 207 H (70-110) mg/dL C-Reactive Protein (<1.0) mg/dL Total Protein (6.3-8.2) g/dL Albumin (3.5-5.0) g/dL
[2024-05-13 05:18] LABS: Glucose,Whole Blood 181 mg/dL (70-110)
[2024-05-13 08:04] LABS: Anisocytosis Slight; Basophils # (A) 0.1 k/uL (0-0.2); Basophils % (A) 0 %; Eosinophils # (A) 0.1 k/uL (0-0.7); Eosinophils % (A) 0 %; HCT 23.1 % (39.0-53.0); HGB 7.1 gm/dL (13.0-17.5); Hypochromasia Marked; Lymphocytes # (A) 1.4 k/uL (1.0-4.8); Lymphocytes % (A) 11 %; MCH 25.5 pg (25.0-35.0); MCHC 30.9 g/dL (31.0-37.0); MCV 82.7 fL (80.0-100.0); Mean Platelet Volume 8.3; Monocytes # (A) 0.3 k/uL (0-1.0); Monocytes % (A) 2 %; Neutrophils # (A) 11.1 k/uL (1.3-7.7); Neutrophils % (A) 85 %; Platelet Count 251 k/uL (150-450); RBC 2.79 m/uL (4.30-5.90)
[2024-05-13 08:15] LABS: African American GFR (CKD) >90 (>60 ml/min/1.73 sqM); Anion Gap 4 mmol/L; Blood Urea Nitrogen 12 mg/dL (9-20); Calcium 8.3 mg/dL (8.4-10.2); Carbon Dioxide 24 mmol/L (22-30); Chloride 105 mmol/L (98-107); Glucose 156 mg/dL (74-99); Non-African American GFR(CKD) >90 (>60 ml/min/1.73 sqM); Potassium 3.9 mmol/L (3.5-5.1); Sodium 133 mmol/L (137-145)
[2024-05-13 11:33] LABS: Glucose,Whole Blood 189 mg/dL (70-110)
--- NOTE | 2024-05-13 15:11 | P.PN ---
Subjective Progress Note Date: 05/12/24 Principal diagnosis: Reason for follow-up is VRE bacteremia and left lateral malleolar osteomyelitis Patient is a 68-year-old male with multiple comorbidities he did have a left lateral malleolar osteomyelitis diagnosed back in March culture positive for E. coli Enterobacter for which the patient was treated with Zosyn patient subsequently left the [facility] and was not clear he was given antibiotics at home presenting to the hospital with decreased level of responsiveness has been diagnosed with VRE bacteremia likely related to the PICC line which has been dis continued and did have extensive wound to the left lateral malleolus as well as left big toe, patient is status post Left above-knee amputation and Right lower extremity great toe partial amputation completed by vascular surgery on 05/05/2024. On today's evaluation that is 05/12/2024, patient has been afebrile, patient is breathing comfortably and is currently on room air, patient denies having any significant cough no chest pain shortness of breath, patient denies nausea vomiting or diarrhea and no abdominal pain. Denies worsening pain to the right foot or left BKA stump. Patient white count is 14,000, creatinine 0.93 Objective - Vital Signs Vital signs: Vital Signs Temp 97.8 F 05/12/24 11:31 Pulse 95 05/12/24 11:31 Resp 17 05/12/24 11:31 BP 108/52 05/12/24 11:31 Pulse Ox 100 05/12/24 11:31 FiO2 Intake & Output 05/11/24 05/12/24 05/12/24 18:59 06:59 18:59 Intake Total 364 118 Output Total 475 760 Balance -111 -760 118 Weight 57.6 kg Intake: IV 10 Invasive Line 5 10 Oral 354 118 Output: Urine 475 760 Other: Voiding Method Urinal Urinal Urinal # Bowel Movements 1 - Exam GENERAL DESCRIPTION: An elderly male lying in bed in no distress RESPIRATORY SYSTEM: Unlabored breathing , decreased breath sounds at bases HEART: S1 S2 regular rate and rhythm , ABDOMEN: Soft , no tenderness, EXTREMITIES: Left AKA stump is currently dressed left big toe partial amputation with a wound on the dorsum with no slough tissue - Labs CBC & Chem 7: 05/13/24 07:33 05/13/24 07:33 Labs: Abnormal Lab Results - Last 24 Hours (Table) 0905/11/24 05/12/24 Range/Units 09:19 16:37 06:12 WBC (3.8-10.6) k/uL RBC (4.30-5.90) m/uL Hgb (13.0-17.5) gm/dL Hct (39.0-53.0) % RDW (11.5-15.5) % Neutrophils # (1.3-7.7) k/uL Sodium (137-145) mmol/L Carbon Dioxide (22-30) mmol/L Glucose (74-99) mg/dL POC Glucose (mg/dL) 162 H 134 H (70-110) mg/dL TIBC 182 L (228-460) UG/DL Transferrin 130.0 L (204.0-354.0) mg/dL C-Reactive Protein (<1.0) mg/dL Total Protein (6.3-8.2) g/dL Albumin (3.5-5.0) g/dL 05/12/24 05/12/24 05/12/24 Range/Units 07:38 07:38 11:19 WBC 14.0 H (3.8-10.6) k/uL RBC 3.13 L (4.30-5.90) m/uL Hgb 7.9 L (13.0-17.5) gm/dL Hct 25.2 L (39.0-53.0) % RDW 17.0 H (11.5-15.5) % Neutrophils # 12.6 H (1.3-7.7) k/uL Sodium 133 L (137-145) mmol/L Carbon Dioxide 21 L (22-30) mmol/L Glucose 148 H (74-99) mg/dL POC Glucose (mg/dL) 243 H (70-110) mg/dL TIBC (228-460) UG/DL Transferrin (204.0-354.0) mg/dL C-Reactive Protein 18.5 H (<1.0) mg/dL Total Protein 6.0 L (6.3-8.2) g/dL Albumin 2.8 L (3.5-5.0) g/dL Assessment and Plan (1) VRE bacteremia Current Visit: Yes Status: Acute Code(s): R78.81 - BACTEREMIA; B95.2 - ENTEROCOCCUS THE CAUSE OF DISEASES CLASSIFIED ELSEWHERE; Z16.21 - RESISTANCE TO VANCOMYCIN SNOMED Code(s): 3990393096 (2) Foot osteomyelitis, left Current Visit: Yes Status: Acute Code(s): M86.9 - OSTEOMYELITIS, UNSPECIFIED SNOMED Code(s): 5904791311670663 Plan: 1patient with VRE bacteremia source likely PICC line which has been discontinued currently waiting for the PICC line tip as well as repeat blood cultures to be finalized, patient to continue with Zyvox to finish a 2-week co urse from negative blood culture 2patient did have a stage III right gluteal wound local wound care with Medihoney followed by moist dressing keep the area of the pressure 3-patient is status post left [id number] amputation and partial amputation of the right big toe overall wound base looks clean white count is still low which is slightly concerning, the white count seem to be responding with addition of Diflucan to continue Dictation was produced using [employer] dictation software. please excuse any grammatical, word or spelling errors. Time with Patient: Less than 30
--- NOTE | 2024-05-13 15:12 | P.PN ---
Subjective Progress Note Date: 05/13/24 Principal diagnosis: Reason for follow-up is VRE bacteremia and left lateral malleolar osteomyelitis Patient is a 68-year-old male with multiple comorbidities he did have a left lateral malleolar osteomyelitis diagnosed back in March culture positive for E. coli Enterobacter for which the patient was treated with Zosyn patient [facility] the [facility] and was not clear he was given antibiotics at home presenting to the hospital with decreased level of responsiveness has been diagnosed with VRE bacteremia likely related to the PICC line which has been dis continued and did have extensive wound to the left lateral malleolus as well as left big toe, patient is status post Left above-knee amputation and Right lower extremity great toe partial amputation completed by vascular surgery on 05/05/2024. On today's evaluation that is 05/13/2024, Patient is afebrile this morning patient denies having any chest pain shortness of breath or cough, the patient is breathing comfortably and currently on room air, patient denies any abdominal pain no diarrhea no nausea no vomiting, pain to lower extremity controlled. Patient white count is down to 13,000, creatinine 0.80 Objective - Vital Signs Vital signs: Vital Signs Temp 98.5 F 05/13/24 12:00 Pulse 97 05/13/24 14:00 Resp 18 05/13/24 14:00 BP 93/55 05/13/24 12:00 Pulse Ox 100 05/13/24 12:00 FiO2 Intake & Output 05/12/24 05/13/24 05/13/24 18:59 06:59 18:59 Intake Total 536 540 Output Total 200 Balance 536 340 Weight 58 kg Intake: Oral 536 540 Output: Urine 200 Other: Voiding Method Urinal Urinal Urinal # Bowel Movements 1 - Exam GENERAL DESCRIPTION: An elderly male lying in bed in no distress RESPIRATORY SYSTEM: Unlabored breathing , decreased breath sounds at bases HEART: S1 S2 regular rate and rhythm , ABDOMEN: Soft , no tenderness, EXTREMITIES: Left AKA stump is currently dressed left big toe partial amputation with a wound on the dorsum with no slough tissue - Labs CBC & Chem 7: 05/13/24 07:33 05/13/24 07:33 Labs: Abnormal Lab Results - Last 24 Hours (Table) 05/12/24 05/12/24 05/13/24 Range/Units 16:51 20:06 05:17 WBC (3.8-10.6) k/uL RBC (4.30-5.90) m/uL Hgb (13.0-17.5) gm/dL Hct (39.0-53.0) % MCHC (31.0-37.0) g/dL RDW (11.5-15.5) % Neutrophils # (1.3-7.7) k/uL Sodium (137-145) mmol/L Glucose (74-99) mg/dL POC Glucose (mg/dL) 154 H 207 H 181 H (70-110) mg/dL Calcium (8.4-10.2) mg/dL 05/13/24 05/13/24 05/13/24 Range/Units 07:33 07:33 11:32 WBC 13.0 H (3.8-10.6) k/uL RBC 2.79 L (4.30-5.90) m/uL Hgb 7.1 L (13.0-17.5) gm/dL Hct 23.1 L (39.0-53.0) % MCHC 30.9 L (31.0-37.0) g/dL RDW 17.0 H (11.5-15.5) % Neutrophils # 11.1 H (1.3-7.7) k/uL Sodium 133 L (137-145) mmol/L Glucose 156 H (74-99) mg/dL POC Glucose (mg/dL) 189 H (70-110) mg/dL Calcium 8.3 L (8.4-10.2) mg/dL Assessment and Plan (1) VRE bacteremia Current Visit: Yes Status: Acute Code(s): R78.81 - BACTEREMIA; B95.2 - ENTEROCOCCUS THE CAUSE OF DISEASES CLASSIFIED ELSEWHERE; Z16.21 - RESISTANCE TO VANCOMYCIN SNOMED Code(s): 1059681905 (2) Foot osteomyelitis, left Current Visit: Yes Status: Acute Code(s): M86.9 - OSTEOMYELITIS, UNSPECIFIED SNOMED Code(s): 2320482703884650 Plan: 1patient with VRE bacteremia source likely PICC line which has been discontinued currently waiting for the PICC line tip as well as repeat blood cultures to be finalized, patient to continue with Zyvox to finish a 2-week course from negative blood culture 2patient did have a stage III right gluteal wound local wound care with Medihoney followed by moist dressing keep the area of the pressure 3-patient is status post left [id number] amputation and partial amputation of the right big toe overall wound base looks clean 4- white count is down to 13,000 we will continue with the Diflucan for about a week on discharge and Zosyn can be discontinued on discharge Dictation was produced using [employer] software. please excuse any grammatical, word or spelling errors. Time with Patient: Less than 30
[2024-05-13 16:58] LABS: Glucose,Whole Blood 152 mg/dL (70-110)
[2024-05-13 19:55] LABS: Glucose,Whole Blood 209 mg/dL (70-110)
[2024-05-14 06:03] LABS: Glucose,Whole Blood 178 mg/dL (70-110)
--- NOTE | 2024-05-14 08:25 | CA ---
Transthoracic Echo Report Name: Michael Woodward Age: 68 Gender: M : 1955 Exam Date: 04/24/2024 14:24 Exam Location: [facility] Ht (in): 67 Wt (lb): 135 Ordering Physician: Attending/Referring Phys: Order Booker Rosanna Bishop RDCS Procedure CPT: Indications: Cardiac Hx: Technical Quality: Good Contrast 1: Total Dose (mL): Contrast 2: Total Dose (mL): MEASUREMENTS (Male / Female) Normal Values 2D ECHO LV Diastolic Diameter PLAX 5.1 cm 4.2 - 5.9 / 3.9 - 5.3 cm LV Systolic Diameter PLAX 4.8 cm IVS Diastolic Thickness 1.4 cm 0.6 - 1.0 / 0.6 - 0.9 cm LVPW Diastolic Thickness 1.2 cm 0.6 - 1.0 / 0.6 - 0.9 cm LV Relative Wall Thickness 0.5 LVOT Diameter 2.2 cm LV Diastolic Volume MOD BP 117.6 cm??? 67 - 155 / 56 - 104 cm??? LV Systolic Volume MOD BP 76.6 cm??? 22 - 58 / 19 - 49 cm??? LV Ejection Fraction MOD BP 34.8 % >= 55 % LV Cardiac Index MOD BP 2481.8 cm???/min???m??? LV Diastolic Volume MOD 4C 108.8 cm??? LV Systolic Volume MOD 4C 79.0 cm??? LV Ejection Fraction MOD 4C 27.4 % LV Cardiac Index MOD 4C 1806.7 cm???/min???m??? LV Diastolic Length 4C 7.2 cm LV Systolic Length 4C 7.0 cm LV Diastolic Volume MOD 2C 122.2 cm??? LV Systolic Volume MOD 2C 70.1 cm??? LV Ejection Fraction MOD 2C 42.6 % LV Cardiac Index MOD 2C 3153.4 cm???/min???m??? LV Diastolic Length 2C 7.6 cm LV Systolic Length 2C 6.6 cm LA Volume 56.4 cm??? 18 - 58 / 22 - 52 cm??? LA Volume Index 33.2 cm???/m??? 16 - 28 cm???/m??? M-MODE LV Diastolic Diameter MM 5.0 cm 4.2 - 5.9 / 3.9 - 5.3 cm LV Systolic Diameter MM 4.6 cm LV Cardiac Index MM Teich 1552.4 cm???/min???m??? IVS Diastolic Thickness MM 1.4 cm 0.6 - 1.0 / 0.6 - 0.9 cm LVPW Diastolic Thickness MM 1.2 cm 0.6 - 1.0 / 0.6 - 0.9 cm LV Relative Wall Thickness MM 0.5 0.24 - 0.42 / 0.22 - 0.42 LV Mass Index MM 160.6 g/m??? 49 - 115 / 43 - 95 g/m??? DOPPLER AV Peak Velocity 123.2 cm/s AV Peak Gradient 6.1 mmHg AV Mean Velocity 80.1 cm/s AV Mean Gradient 2.9 mmHg AV Velocity Time Integral 21.2 cm LVOT Peak Velocity 100.1 cm/s LVOT Peak Gradient 4.0 mmHg LVOT Velocity Time Integral 14.5 cm LVOT Stroke Volume 53.4 cm??? LVOT Stroke Volume Index 31.2 ml/m??? LVOT Cardiac Index 3233.8 cm???/min???m??? AV Area Cont Eq vti 2.5 cm??? AV Area Cont Eq pk 3.0 cm??? PV Peak Velocity 79.1 cm/s PV Peak Gradient 2.5 mmHg FINDINGS Left Ventricle Left ventricular ejection fraction is estimated at 25-30 %. Moderately increased left ventricular mass. Moderately increased septal wall thickness. Mildly increased posterior wall thickness. Severely decreased fractional shortening. Severely decreased midwall fractional shortening. Moderately increased left ventricular systolic volume. Severely increased left ventricular relative wall thickness. Moderately decreased left ventricular ejection fraction. Right Ventricle Severe right ventricular dilatation with severely reduced function. Unable to estimate the right ventricular systolic pressure. Right Atrium Severe right atrial dilatation. Left Atrium Mildly increased left atrial volume. Mitral Valve Mitral valve thickened. No evidence for mitral valve prolapse. No mitral stenosis. Trace mitral regurgitation. Aortic Valve Trileaflet aortic valve. No aortic stenosis. Trace aortic regurgitation. Tricuspid Valve Structurally normal tricuspid valve. No tricuspid stenosis. Trace tricuspid regurgitation. Pulmonic Valve Pulmonic valve not well visualized. No pulmonic stenosis. No pulmonic regurgitation. Pericardium No pericardial effusion. Aorta Aortic annulus normal. CONCLUSIONS Left ventricular ejection fraction 25-3% Moderately increased left ventricular wall thickness Trace mitral regurgitation Trace aortic regurgitation No pericardial effusion Previewed by: Dr. Trevon Morales DO (Electronically Signed) Final Date: 24 April 2024 18:06
[2024-05-14 11:45] LABS: Glucose,Whole Blood 196 mg/dL (70-110)
--- NOTE | 2024-05-14 13:03 | P.PN ---
Subjective Progress Note Date: 05/14/24 Principal diagnosis: Reason for follow-up is VRE bacteremia and left lateral malleolar osteomyelitis Patient is a 68-year-old male with multiple comorbidities he did have a left lateral malleolar osteomyelitis diagnosed back in March culture positive for E. coli Enterobacter for which the patient was treated with Zosyn patient subsequently left the shelter and was not clear he was given antibiotics at home presenting to the hospital with decreased level of responsiveness has been diagnosed with VRE bacteremia likely related to the PICC line which has been dis continued and did have extensive wound to the left lateral malleolus as well as left big toe, patient is status post Left above-knee amputation and Right lower extremity great toe partial amputation completed by vascular surgery on 05/05/2024. On today's evaluation that is 05/14/2024,the patient denies any fever or any chills, patient is breathing comfortably on room air, the patient denies chest pain shortness of breath and no significant cough, patient denies abdominal pain, no nausea vomiting or diarrhea. Pain to the lower extremity currently controlled. No new labs has been repeated today Objective - Vital Signs Vital signs: Vital Signs Temp 98 F 05/14/24 12:00 Pulse 101 H 05/14/24 12:00 Resp 16 05/14/24 12:00 BP 100/68 05/14/24 12:00 Pulse Ox 99 05/14/24 12:00 FiO2 Intake & Output 05/13/24 05/14/24 05/14/24 18:59 06:59 18:59 Intake Total 236 Output Total 1050 200 Balance -1050 36 Weight 60 kg Intake: Oral 236 Output: Urine 1050 200 Other: Voiding Method Urinal Urinal Urinal # Voids 4 1 - Exam GENERAL DESCRIPTION: An elderly male lying in bed in no distress RESPIRATORY SYSTEM: Unlabored breathing , decreased breath sounds at bases HEART: S1 S2 regular rate and rhythm , ABDOMEN: Soft , no tenderness, EXTREMITIES: Left AKA stump is currently dressed left big toe partial amputation with a wound on the dorsum with no slough tissue - Labs CBC & Chem 7: 05/13/24 07:33 05/13/24 07:33 Labs: Abnormal Lab Results - Last 24 Hours (Table) 05/13/24 05/13/24 05/14/24 Range/Units 16:56 19:54 06:02 POC Glucose (mg/dL) 152 H 209 H 178 H (70-110) mg/dL 05/14/24 Range/Units 11:43 POC Glucose (mg/dL) 196 H (70-110) mg/dL Assessment and Plan (1) VRE bacteremia Current Visit: Yes Status: Acute Code(s): R78.81 - BACTEREMIA; B95.2 - ENTEROCOCCUS THE CAUSE OF DISEASES CLASSIFIED ELSEWHERE; Z16.21 - RESISTANCE TO VANCOMYCIN SNOMED Code(s): 3978310430 (2) Foot osteomyelitis, left Current Visit: Yes Status: Acute Code(s): M86.9 - OSTEOMYELITIS, UNSPECIFIED SNOMED Code(s): 6070762768528406 Plan: 1patient with VRE bacteremia source likely PICC line which has been discontinued, patient received about 12 days of oral Zyvox to continue for about a week on discharge 2patient did have a stage III right gluteal wound local wound care with Medihoney followed by moist dressing keep the area of the pressure 3-patient is status post left xpier-elj-esaw amputation and partial amputation of the right big toe overall wound base looks clean 4- white count is down to 13,000 as of yesterday no CBC was done today we will continue with the Diflucan for about a week on discharge and no need for IV Zosyn which can be discontinued Dictation was produced using [employer] dictation software. please excuse any g rammatical, word or spelling errors. Time with Patient: Less than 30
--- NOTE | 2024-05-14 13:50 | CT ---
Patient Michael Woodward ID [id number] Order # EXAMINATION TYPE: CT brain danny mtz DATE OF EXAM: 04/23/2024 COMPARISON: No comparison available on downtime PACS. HISTORY: Unknown CT DLP: 1267.3 mGycm, Automated exposure control for dose reduction was used. CONTRAST: Patient injected with 0 mL of Isovue 300. CT of the brain is performed utilizing 3 mm thick sections through the posterior fossa and 3 mm thick sections through the remaining calvarium. Study is performed within 24 hours of arrival to the hospital. No abnormal hyperdensity is present to suggest an acute intracranial hemorrhage. No mass lesion is evident. No acute infarcts are evident. There is some hypodensity within the right basal ganglia may be an ol d lacunar infarct. Ventricles and sulci are appropriate for the patient age. Paranasal sinuses and mastoid air cells within the [id number] are clear. IMPRESSIONS: 1. No acute intracranial process. Follow-up MRI can be performed as clinically indicated. 2. Probable old lacunar infarct right basal ganglion CT cervical spine. COMPARISON: None CT of the cervical spine is performed in the axial plane at 2 mm thick sections. Reconstructed image s in the coronal, and sagittal plane are reviewed on the computer. No acute fractures are evident. Vertebral body alignment is a mild kyphosis in the lower cervical spine. Mild diffuse narrowing of disc heights is present. Vertebral body heights are preserved. No spinal canal stenosis is evident. No neural foraminal stenosis is evident. IMPRESSION: 1. No acute osseous abnormality cervical spine. 2. Mild cervical kyphosis which can be related to patient positioning or muscle spasm. 3. Mild degenerative disc changes diffusely through the cervical spine
--- NOTE | 2024-05-14 13:52 | CT ---
EXAMINATION TYPE: CT abdomen pelvis wo con CT DLP: 427 mGycm, Automated exposure control for dose reduction was used. DATE OF EXAM: 04/23/2024 8:41 PM COMPARISON: None. CLINICAL INDICATION: Abdominal pain, Site ID [facility] Patient Michael Woodward ID [id number] TECHNIQUE: Axial CT of the abdomen and pelvis. Sagittal and coronal reformats were created on a [facility] workstation. Contrast used: (none if empty) Oral contrast used: (none if empty) FINDINGS: LOWER CHEST: Unremarkable ABDOMEN LIVER: Unremarkable GALLBLADDER AND BILE DUCTS: Layering biliary sludge is identified. PANCREAS: Unremarkable. SPLEEN: Unremarkable. ADRENAL GLANDS: Unremarkable. KIDNEYS AND URETERS: No evidence of hydronephrosis or renal calculus. The ureters are unremarkable. PELVIS BLADDER: Unremarkable REPRODUCTIVE: Unremarkable. ABDOMEN & PELVIS STOMACH AND BOWEL: Stomach and duodenum are unremarkable. Fecaloma within the patient's rectum measur ing 5.9 cm. No evidence of significant rectal wall thickening. PERITONEUM/RETROPERITONEUM: No evidence of pneumoperitoneum or free fluid. VASCULATURE: Severe atherosclerotic calcifications are present throughout the abdominal aorta and its branches. No evidence of aortic aneurysm. MUSCULOSKELETAL: No acute osseous abnormalities. Moderate disc degeneration changes are present throu ghout the thoracolumbar spine. LYMPH NODES: No gross evidence for lymphadenopathy. SOFT TISSUE/ABDOMINAL WALL: Unremarkable IMPRESSION: 1. Fecaloma within the patient's rectum measuring 5.9 cm. 2. Severe atherosclerotic disease of the aorta and its branches.
--- NOTE | 2024-05-14 15:41 | P.PN ---
Subjective Progress Note Date: 05/13/24 Pleasant 68-year-old male who had outpatient therapy of a left malleolar wound. Wound to the left arredondo as well as the right great toe. There is concern for gangrenous changes in a patient with peripheral arterial disease. Vascular surgery was consulted to evaluate this patient for possible amputation of the right great toe and also surgical debridement of the left ankle wound. ID has been following closely. We are unable to locate the left ankle wound culture at this time and will need surgical cultures taken during debridement. He had positive blood cultures for VRE. Per lab the most recent blood cultures are negative as well as the PICC line tip. 05/03/2024 Patient is seen and evaluated in follow-up with infectious disease following. Patient maintained on antibiotics and will likely transition to oral. Vascular surgery consulted to evaluate for possible amputation of the right great toe and also possible surgical debridement of the left arredondo wound. Patient continues to have some lower extremity swelling more so on the left and reports his pain is 7/10 on the pain scale. Patient with significant weakness working on going to [facility] and would like to go to [facility]. Will await vascular surgery consultation and evaluation to consider discharge planning moving forward. Patient is cu rrently afebrile. Patient will require insurance authorization as well once discharge planning is in progress. 05/04/2024 Patient is evaluated in follow up today on the medical floor. He is scheduled to undergo left above the knee amputation tomorrow. Abdominal ultrasound was completed yesterday with no evidence of obstructive uropathy gallbladder is WNL. Renal function WNL. 05/05/2024 Patient is evaluated in follow-up on the medical floor he is scheduled to undergo left [id number] amputation today as well as right toe debridement and possible amputation. His renal function remains normal. Hemoglobin A1c is 6.8. Blood pressure better at 120/85. 05/06/2024 Patient is postoperative day #1 left above the knee amputation and partial right great toe amputation. He states pain is fairly controlled at this time. He continues on IV zosyn. White count is 12.5. hgb 8.7. Sodium 135. BP 148/72. 05/07/2024 Patient is evaluated today postoperative day #2 left above the knee amputation a nd partial right great toe amputation. He has no acute complaints today. Continues on IV zosyn. White blood cell count 12.5, hgb 8.7, Sodium 135, renal function normal. No plans for discharge until Friday per vascular. 05/08/2024 Patient is currently sitting on side of the bed. Awake alert and oriented x 3. On room air. Complains of pain in his surgical site. Patient is postoperative day 3 left MIKE Denied any complaints of chest pain or shortness of breath. No nausea vomiting abdominal pain or diarrhea. No cough or sputum production. Laboratory data reviewed from yesterday. Blood sugars fairly controlled. Patient is on antibiotics in the form of Zosyn. ID is on board. Patient is complaining of pain at the surgical site. Fairly controlled with medications. 05/09/2024 Patient is sitting on the side of the bed. Awake alert and oriented x 3. No complaints of chest pain. Left AKA amputation site is bandaged. Pain is improved. No complaints of nausea vomiting or abdominal pain. No diarrhea. Patient otherwise having right lower extremity swelling and blister formation. Wound dressing was done. Laboratory data showed WBC 18.8 hemoglobin 7.7 and johnson telets 259 sodium 136 potassium 4.4 chloride 109 bicarb is 23 BUN 13 and creatinine 0.84 and blood sugar 136 and calcium 8.6. Vascular surgery and ID is on board. Patient remains on antibiotics in the form of Zosyn and Zyvox. 05/10/2024 Patient is sitting on side of bed. Advised to elevate right lower extremity. Significant swelling of the right lower extremity with blister formation. Overall pain is controlled. No fever no chills. Laboratory data showed WBC improved to 12.5 hemoglobin 7.8 and platelets 237 RDW 17.4 BUN 9 and creatinine 0.81 and CRP 14.5. Blood sugar is controlled. Patient is on antibiotics Zosyn and Zyvox. Blood pressure is marginal. 05/11/2024 Patient is sitting in the bed. Awake alert and oriented x 3. Right lower extremity swelling is slightly improved. Was given a dose of IV Lasix this morning. No complaints of fever or chills. Pain is controlled. No nausea or vomiting. Tolerating oral diet. Laboratory showed WBC 15.1 hemoglobin 7.6 and platelets 243 sodium 133 potassium 4.3 chloride 106 bicarb is 23 BUN 12 and creatinine 0.82 and blood sugar 172. Patient is on Zosyn, Zyvox and Diflucan was added. 05/12/2024 Patient is lying in the bed. Awake alert and oriented x 3. Pain is controlled. Wound dressing was done yesterday evening. Otherwise laboratory data showed WBC improved to 14.0 hemoglobin 7.9 and platelets 278 sodium 133 potassium 4.1 chloride 104 bicarb is 21 BUN 13 and creatinine 0.93. CRP 18.5. 05/13/2024 Patient is lying in the bed. Awake alert and oriented x 3. Currently on room air. No complaints of fever or chills. Right leg swelling is better. Pain is controlled. Left AKA amputation site is bandaged. General any nausea or vomiting abdominal pain. Tolerating oral diet. Laboratory data showed WBC trending down to 13.0 hemoglobin 7.1 and platelets 251 sodium 133 potassium 3.9 chloride 105 bicarb is 24 BUN 12 and creatinine 0.80 and blood sugar is 156. Patient is on antibiotics in the form of Zosyn. Also on linezolid. ID is on board. Review of Systems Constitutional: Denied any fatigue denied any fever. Cardio vascular: denied any chest pain, palpitations Gastrointestinal: denied any nausea, vomiting, diarrhea Pulmonary: Denied any shortness of breath cough Neurologic denied any new focal deficits All inpatient medications were reviewed and appropriate changes in these medications as dictated in the interval history and assessment and plan. PHYSICAL EXAMINATION: GENERAL: The patient is alert and oriented x3, not in any acute distress. Well developed, well nourished. HEENT: Pupils are round and equally reacting to light. EOMI. No scleral icterus. No conjunctival pallor. Normocephalic, atraumatic. No pharyngeal erythema. No thyromegaly. CARDIOVASCULAR: S1 and S2 present. No murmurs, rubs, or gallops. PULMONARY: Chest is clear to auscultation, no wheezing or crackles. ABDOMEN: Soft, nontender, nondistended, normoactive bowel sounds. No palpable organomegaly. MUSCULOSKELETAL: No joint swelling or deformity. EXTREMITIES: Left AKA wound is packed. Right lower extremity edema and foot wound.. NEUROLOGICAL: Gross neurological examination did not reveal any focal deficits. Diffusely weak. SKIN: No rashes. Right great toe wound. Assessment: -VRE bacteremia secondary to PICC line, has been discontinued. -Left malleolar wound underlying osteomyelitis and sepsis, present on admission s/p Left AKA and right great toe partial amputation secondary to gangrenous right great toe. -Episode of VTach/SVT resolved -Chronic heart failure with reduced EF 25-30%. -NSTEMI type 2 -Coronary artery disease with previous CABG and multiple stents -Acute kidney injury, resolved. -Hx of peripheral arterial disease with prior bypass -Diabetes mellitus type 2 -History of stroke 2020 with left sided deficits -Hx hypertension -Hyperlipidemia -Hx of peripheral neuropathy GI prophylaxis DVT prophylaxis Full Code Plan -Continue with pain management with [place]. -Follow-up left malleolar culture -Continues on IV zosyn and linezolid. Diflucan was added. -Cardiology has signed off at this time -Continue aspirin/brilinta -Blood pressure has been dropping into the 100s systolic. Lisinopril has been decreased with parameters. Discontinued hydralazine. -Monitor renal function and repeat labs in the AM -PT/OT consultation in place as plan is for patient to go to [facility] once dis charge planning is in progress. Patient will also require insurance authorization. Plan is for discharge to [facility] Objective - Vital Signs Vital signs: Vital Signs Temp 98.5 F 05/13/24 12:00 Pulse 97 05/13/24 14:00 Resp 18 05/13/24 14:00 BP 93/55 05/13/24 12:00 Pulse Ox 100 05/13/24 12:00 FiO2 Intake & Output 05/12/24 05/13/24 05/13/24 18:59 06:59 18:59 Intake Total 536 540 Output Total 200 Balance 536 340 Weight 58 kg Intake: Oral 536 540 Output: Urine 200 Other: Voiding Method Urinal Urinal Urinal # Bowel Movements 1 - Labs CBC & Chem 7: 05/13/24 07:33 05/13/24 07:33 Labs: Abnormal Lab Results - Last 24 Hours (Table) 05/12/24 05/12/24 05/13/24 Range/Units 16:51 20:06 05:17 WBC (3.8-10.6) k/uL RBC (4.30-5.90) m/uL Hgb (13.0-17.5) gm/dL Hct (39.0-53.0) % MCHC (31.0-37.0) g/dL RDW (11.5-15.5) % Neutrophils # (1.3-7.7) k/uL Sodium (137-145) mmol/L Glucose (74-99) mg/dL POC Glucose (mg/dL) 154 H 207 H 181 H (70-110) mg/dL Calcium (8.4-10.2) mg/dL 05/13/24 05/13/24 05/13/24 Range/Units 07:33 07:33 11:32 WBC 13.0 H (3.8-10.6) k/uL RBC 2.79 L (4.30-5.90) m/uL Hgb 7.1 L (13.0-17.5) gm/dL Hct 23.1 L (39.0-53.0) % MCHC 30.9 L (31.0-37.0) g/dL RDW 17.0 H (11.5-15.5) % Neutrophils # 11.1 H (1.3-7.7) k/uL Sodium 133 L (137-145) mmol/L Glucose 156 H (74-99) mg/dL POC Glucose (mg/dL) 189 H (70-110) mg/dL Calcium 8.3 L (8.4-10.2) mg/dL
--- NOTE | 2024-05-14 16:00 | P.DS ---
Providers Date of admission: 04/23/24 19:18 Expected date of discharge: 05/14/24 Attending physician: Tomi Shaw MD Consults: 04/23/24 19:19 Consult Physician Routine Consulting Provider: Santos Mackay Consult Reason/Comments: elevated troponin Do you want consulting provider notified?: Already Contacted Consult Physician Routine Consulting Provider: Beatriz Rodriges Consult Reason/Comments: sepsis Do you want consulting provider notified?: Already Contacted Primary care physician: Physician Nonstaff Hospital Course: Discharge diagnosis -VRE bacteremia secondary to PICC line, has been discontinued. -Left malleolar wound underlying osteomyelitis and sepsis, present on admission s/p Left AKA and right great toe partial amputation secondary to gangrenous right great toe. -Episode of VTach/SVT resolved -Chronic heart failure with reduced EF 25-30%. -NSTEMI type 2 -Coronary artery disease with previous CABG and multiple stents -Acute kidney injury, resolved. -Hx of peripheral arterial disease with prior bypass -Diabetes mellitus type 2 -History of stroke 2020 with left sided deficits -Hx hypertension -Hyperlipidemia -Hx of peripheral neuropathy GI prophylaxis DVT prophylaxis with heparin subcu Patient is full code Hospital course Pleasant 68-year-old male who had outpatient therapy of a left malleolar wound. Wound to the left arredondo as well as the right great toe. There is concern for gangrenous changes in a patient with peripheral arterial disease. Vascular surgery was consulted to evaluate this patient for possible amputation of the right great toe and also surgical debridement of the left ankle wound. ID has been following closely. We are unable to locate the left ankle wound culture at this time and will need surgical cultures taken during debridement. He had positive blood cultures for VRE. Per lab the most recent blood cultures are negative as well as the PICC line tip. 05/03/2024 Patient is seen and evaluated in follow-up with infectious disease following. Patient maintained on antibiotics and will likely transition to oral. Vascular surgery consulted to evaluate for possible amputation of the right great toe and also possible surgical debridement of the left arredondo wound. Patient continues to have some lower extremity swelling more so on the left and reports his pain is 7/10 on the pain scale. Patient with significant weakness working on going to [facility] and would like to go to [facility]. Will await vascular surgery consultation and evaluation to consider discharge planning moving forward. Patient is currently afebrile. Patient will require insurance authorization as well once discharge planning is in progress. 05/04/2024 Patient is evaluated in follow up today on the medical floor. He is scheduled to undergo left above the knee amputation tomorrow. Abdominal ultrasound was completed yesterday with no evidence of obstructive uropathy gallbladder is WNL. Renal function WNL. 05/05/2024 Patient is evaluated in follow-up on the medical floor he is scheduled to undergo left ysvhl-[id number] amputation today as well as right toe debridement and possible amputation. His renal function remains normal. Hemoglobin A1c is 6.8. Blood pressure better at 120/85. 05/06/2024 Patient is postoperative day #1 left above the knee amputation and partial right great toe amputation. He states pain is fairly controlled at this time. He continues on IV zosyn. White count is 12.5. hgb 8.7. Sodium 135. BP 148/72. 05/07/2024 Patient is evaluated today postoperative day #2 left above the knee amputation and partial right great toe amputation. He has no acute complaints today. Continues on IV zosyn. White blood cell count 12.5, hgb 8.7, Sodium 135, renal function normal. No plans for discharge until Friday per vascular. 05/08/2024 Patient is currently sitting on side of the bed. Awake alert and oriented x 3. On room air. Complains of pain in his surgical site. Patient is postoperative day 3 left AKA Denied any complaints of chest pain or shortness of breath. No nausea vomiting abdominal pain or diarrhea. No cough or sputum production. Laboratory data reviewed from yesterday. Blood sugars fairly controlled. Patient is on antibiotics in the form of Zosyn. ID is on board. Patient is complaining of pain at the surgical site. Fairly controlled with medications. 05/09/2024 Patient is sitting on the side of the bed. Awake alert and oriented x 3. No complaints of chest pain. Left AKA amputation site is bandaged. Pain is improved. No complaints of nausea vomiting or abdominal pain. No diarrhea. Patient otherwise having right lower extremity swelling and blister formation. Wound dressing was done. Laboratory data showed WBC 18.8 hemoglobin 7.7 and platelets 259 sodium 136 potassium 4.4 chloride 109 bicarb is 23 BUN 13 and creatinine 0.84 and blood sugar 136 and calcium 8.6. Vascular surgery and ID is on board. Patient remains on antibiotics in the form of Zosyn and Zyvox. 05/10/2024 Patient is sitting on side of bed. Advised to elevate right lower extremity. Significant swelling of the right lower extremity with blister formation. Overall pain is controlled. No fever no chills. Laboratory data showed WBC improved to 12.5 hemoglobin 7.8 and platelets 237 RDW 17.4 BUN 9 and creatinine 0.81 and CRP 14.5. Blood sugar is controlled. Patient is on antibiotics Zosyn and Zyvox. Blood pressure is marginal. 05/11/2024 Patient is sitting in the bed. Awake alert and oriented x 3. Right lower extremity swelling is slightly improved. Was given a dose of IV Lasix this morning. No complaints of fever or chills. Pain is controlled. No nausea or vomiting. Tolerating oral diet. Laboratory showed WBC 15.1 hemoglobin 7.6 and platelets 243 sodium 133 potassium 4.3 chloride 106 bicarb is 23 BUN 12 and creatinine 0.82 and blood sugar 172. Patient is on Zosyn, Zyvox and Diflucan was added. 05/12/2024 Patient is lying in the bed. Awake alert and oriented x 3. Pain is controlled. Wound dressing was done yesterday evening. Otherwise laboratory data showed WBC improved to 14.0 hemoglobin 7.9 and platelets 278 sodium 133 potassium 4.1 chloride 104 bicarb is 21 BUN 13 and creatinine 0.93. CRP 18.5. 05/13/2024 Patient is lying in the bed. Awake alert and oriented x 3. Currently on room air. No complaints of fever or chills. Right leg swelling is better. Pain is controlled. Left AKA amputation site is bandaged. General any nausea or vomiting abdominal pain. Tolerating oral diet. Laboratory data showed WBC trending down to 13.0 hemoglobin 7.1 and platelets 251 sodium 133 potassium 3.9 chloride 105 bicarb is 24 BUN 12 and creatinine 0.80 and blood sugar is 156. Patient is on antibiotics in the form of Zosyn. Also on linezolid. ID is on board. 05/14/2024 Patient is sitting in the bed. Awake alert and orient x 3. Pain is controlled. Patient is status post left AKA and right great toe amputation. Patient is on current antibiotics Zyvox, Diflucan and Zosyn during the hospital stay. Continue with Diflucan and Zyvox for 1 more week as per ID recommendations. Continue with wound care. Discharge medication reconciliation was done. Patient is being discharged to rehab today. PHYSICAL EXAMINATION: GENERAL: The patient is alert and oriented x3, not in any acute distress. Well developed, well nourished. HEENT: Pupils are round and equally reacting to light. EOMI. No scleral icterus. No conjunctival pallor. Normocephalic, atraumatic. No pharyngeal erythema. No thyromegaly. CARDIOVASCULAR: S1 and S2 present. No murmurs, rubs, or gallops. PULMONARY: Chest is clear to auscultation, no wheezing or crackles. ABDOMEN: Soft, nontender, nondistended, normoactive bowel sounds. No palpable organomegaly. MUSCULOSKELETAL: No joint swelling or deformity. EXTREMITIES: Left AKA wound is packed. Right lower extremity edema and foot wound at great amputation site... NEUROLOGICAL: Gross neurological examination did not reveal any focal deficits. Diffusely weak. SKIN: No rashes. Right great toe wound. 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 Patient Condition at Discharge: Fair Plan - Discharge Summary New Discharge Prescriptions: New lisinopriL [Zestril] 5 mg PO DAILY tab Linezolid [Zyvox] 600 mg PO Q12HR 7 Days #14 tab HYDROcodone/APAP 5-325MG [[place] 5-325] 1 each PO Q6HR PRN 3 Days #12 tab PRN Reason: Pain Fluconazole [Diflucan] 100 mg PO DAILY #7 tab Pantoprazole [Protonix] 40 mg PO AC-BRKFST #30 tab Continue Tamsulosin [Flomax] 0.4 mg PO BID Cholecalciferol [Vitamin D3 (25 Mcg = 1000 Iu)] 25 mcg PO DAILY Isosorbide Mononitrate ER [Imdur] 60 mg PO DAILY #30 tab Atorvastatin [Lipitor] 80 mg PO HS #90 tab Metoprolol Succinate (ER) [Toprol XL] 50 mg PO HS Gabapentin [Neurontin] 600 mg PO TID Ticagrelor [Brilinta] 90 mg PO BID #60 tab Aspirin EC [Ecotrin Low Dose] 81 mg PO DAILY Cyanocobalamin (Vitamin B-12) [Vitamin B-12] 1,000 mcg PO DAILY Discontinued lisinopriL [Zestril] 10 mg PO BID #0 hydrALAZINE HCL [Apresoline] 50 mg PO TID #90 tab HYDROcodone/APAP 5-325MG [[place] 5-325] 1 each PO Q4HR PRN #18 tab PRN Reason: Moderate Pain (Scale 4 To 6) cefTRIAXone [Rocephin] 2,000 mg IVP Q24HR #40 each DULoxetine HCL [Cymbalta] 120 mg PO DAILY ARIPiprazole 5 mg PO DAILY Discharge Medication List Ticagrelor [Brilinta] 90 mg PO BID #60 tab 05/07/21 [Rx] Tamsulosin [Flomax] 0.4 mg PO BID 07/03/21 [History] Cholecalciferol [Vitamin D3 (25 Mcg = 1000 Iu)] 25 mcg PO DAILY 10/22/21 [History] Atorvastatin [Lipitor] 80 mg PO HS #90 tab 04/09/22 [Rx] Isosorbide Mononitrate ER [Imdur] 60 mg PO DAILY #30 tab 04/09/22 [Rx] Metoprolol Succinate (ER) [Toprol XL] 50 mg PO HS 01/22/24 [History] Aspirin EC [Ecotrin Low Dose] 81 mg PO DAILY 03/11/24 [History] Cyanocobalamin (Vitamin B-12) [Vitamin B-12] 1,000 mcg PO DAILY 03/11/24 [History] Gabapentin [Neurontin] 600 mg PO TID 03/11/24 [History] Fluconazole [Diflucan] 100 mg PO DAILY #7 tab 05/14/24 [Rx] HYDROcodone/APAP 5-325MG [[place] 5-325] 1 each PO Q6HR PRN 3 Days #12 tab 05/14/24 [Rx] Linezolid [Zyvox] 600 mg PO Q12HR 7 Days #14 tab 05/14/24 [Rx] Pantoprazole [Protonix] 40 mg PO AC-BRKFST #30 tab 05/14/24 [Rx] lisinopriL [Zestril] 5 mg PO DAILY tab 05/14/24 [Rx] Follow up Appointment(s)/Referral(s): Maggi Velez DO [STAFF PHYSICIAN] - 2 Weeks Brit Rivas MD [STAFF PHYSICIAN] - 1 Week Discharge Disposition: TRANSFER TO SNF/ECF
[2024-05-14 16:12] LABS: Glucose,Whole Blood 80 mg/dL (70-110)
[2024-05-14 20:19] LABS: Glucose,Whole Blood 165 mg/dL (70-110)
[2024-05-15 05:59] LABS: Glucose,Whole Blood 169 mg/dL (70-110)
[2024-05-15 07:58] LABS: Anisocytosis Slight; Basophils % (A) 0 %; Eosinophils % (A) 0 %; HCT 23.5 % (39.0-53.0); HGB 7.5 gm/dL (13.0-17.5); Hypochromasia Marked; Lymphocytes # (A) 0.9 k/uL (1.0-4.8); Lymphocytes % (A) 7 %; MCH 25.6 pg (25.0-35.0); MCHC 31.9 g/dL (31.0-37.0); MCV 80.3 fL (80.0-100.0); Mean Platelet Volume 8.6; Monocytes # (A) 0.2 k/uL (0-1.0); Monocytes % (A) 1 %; Neutrophils # (A) 12.6 k/uL (1.3-7.7); Neutrophils % (A) 91 %; Platelet Count 250 k/uL (150-450); RBC 2.92 m/uL (4.30-5.90); RDW 17.3 % (11.5-15.5); WBC 13.8 k/uL (3.8-10.6)
[2024-05-15 08:46] LABS: African American GFR (CKD) >90 (>60 ml/min/1.73 sqM); Anion Gap 8 mmol/L; Blood Urea Nitrogen 13 mg/dL (9-20); Calcium 8.6 mg/dL (8.4-10.2); Carbon Dioxide 23 mmol/L (22-30); Chloride 103 mmol/L (98-107); Glucose 148 mg/dL (74-99); Non-African American GFR(CKD) >90 (>60 ml/min/1.73 sqM); Potassium 4.4 mmol/L (3.5-5.1); Sodium 134 mmol/L (137-145)
[2024-05-15 11:54] LABS: Glucose,Whole Blood 212 mg/dL (70-110)
--- NOTE | 2024-05-15 15:03 | P.PN ---
Subjective Progress Note Date: 05/15/24 Principal diagnosis: Reason for follow-up is VRE bacteremia and left lateral malleolar osteomyelitis Patient is a 68-year-old male with multiple comorbidities he did have a left lateral malleolar osteomyelitis diagnosed back in March culture positive for E. coli Enterobacter for which the patient was treated with Zosyn patient subsequently left the residential and was not clear he was given antibiotics at home presenting to the hospital with decreased level of responsiveness has been diagnosed with VRE bacteremia likely related to the PICC line which has been dis continued and did have extensive wound to the left lateral malleolus as well as left big toe, patient is status post Left above-knee amputation and Right lower extremity great toe partial amputation completed by vascular surgery on 05/05/2024. On today's evaluation that is 05/15/2024,the patient remains to be afebrile, patient is on room air not requiring supplemental oxygen and denies any shortnes s of breath no chest pain or cough.Patient denies having any nausea or vomiting, no abdominal pain and no diarrhea has been reported denies any worsening pain to the lower extremity. Patient white count of 13.8, creatinine 0.77 Objective - Vital Signs Vital signs: Vital Signs Temp 98.7 F 05/15/24 08:00 Pulse 101 H 05/15/24 13:39 Resp 18 05/15/24 12:00 BP 94/57 05/15/24 12:00 Pulse Ox 97 05/15/24 12:00 FiO2 Intake & Output 05/14/24 05/15/24 05/15/24 18:59 06:59 18:59 Intake Total 534 780 240 Output Total 400 640 200 Balance 134 140 40 Weight 59.8 kg Intake: Oral 534 780 240 Output: Urine 400 640 200 Other: Voiding Method Urinal Urinal # Voids 1 - Exam GENERAL DESCRIPTION: An elderly male lying in bed in no distress RESPIRATORY SYSTEM: Unlabored breathing , decreased breath sounds at bases HEART: S1 S2 regular rate and rhythm , ABDOMEN: Soft , no tenderness, EXTREMITIES: Left AKA stump is currently dressed left big toe partial amputation with a wound on the dorsum with no slough tissue - Labs CBC & Chem 7: 05/15/24 07:06 05/15/24 07:01 Labs: Abnormal Lab Results - Last 24 Hours (Table) 05/14/24 05/15/2405/15/24 Range/Units 20:16 05:50 07:01 WBC (3.8-10.6) k/uL RBC (4.30-5.90) m/uL Hgb (13.0-17.5) gm/dL Hct (39.0-53.0) % RDW (11.5-15.5) % Neutrophils # (1.3-7.7) k/uL Lymphocytes # (1.0-4.8) k/uL Sodium 134 L (137-145) mmol/L Glucose 148 H (74-99) mg/dL POC Glucose (mg/dL) 165 H 169 H (70-110) mg/dL 05/15/24 05/15/24 Range/Units 07:06 11:48 WBC 13.8 H (3.8-10.6) k/uL RBC 2.92 L (4.30-5.90) m/uL Hgb 7.5 L (13.0-17.5) gm/dL Hct 23.5 L (39.0-53.0) % RDW 17.3 H (11.5-15.5) % Neutrophils # 12.6 H (1.3-7.7) k/uL Lymphocytes # 0.9 L (1.0-4.8) k/uL Sodium (137-145) mmol/L Glucose (74-99) mg/dL POC Glucose (mg/dL) 212 H (70-110) mg/dL Assessment and Plan (1) VRE bacteremia Current Visit: Yes Status: Acute Code(s): R78.81 - BACTEREMIA; B95.2 - ENTEROCOCCUS THE CAUSE OF DISEASES CLASSIFIED ELSEWHERE; Z16.21 - RESISTANCE TO VANCOMYCIN SNOMED Code(s): 8648580039 (2) Foot osteomyelitis, left Current Visit: Yes Status: Acute Code(s): M86.9 - OSTEOMYELITIS, UNSPECIFIED SNOMED Code(s): 1803959013579490 Plan: 1patient with VRE bacteremia source likely PICC line which has been di scontinued, patient received about 12 days of oral Zyvox to continue for about a week on discharge 2patient did have a stage III right gluteal wound local wound care with Medihoney followed by moist dressing keep the area of the pressure 3-patient is status post left [id number] amputation and partial amputation of the right big toe overall wound base looks clean 4-patient remains to be afebrile white count mildly elevated, plan is to continue with the Diflucan for about a week on discharge currently waiting for placement Dictation was produced using [employer] dictation software. please excuse any grammatical, word or spelling errors. Time with Patient: Less than 30
[2024-05-15 16:09] LABS: Glucose,Whole Blood 166 mg/dL (70-110)
[2024-05-15 20:28] LABS: Glucose,Whole Blood 142 mg/dL (70-110)
--- NOTE | 2024-05-15 22:23 | P.PN ---
Subjective Progress Note Date: 05/14/24 Pleasant 68-year-old male who had outpatient therapy of a left malleolar wound. Wound to the left arredondo as well as the right great toe. There is concern for gangrenous changes in a patient with peripheral arterial disease. Vascular surgery was consulted to evaluate this patient for possible amputation of the right great toe and also surgical debridement of the left ankle wound. ID has been following closely. We are unable to locate the left ankle wound culture at this time and will need surgical cultures taken during debridement. He had positive blood cultures for VRE. Per lab the most recent blood cultures are negative as well as the PICC line tip. 05/03/2024 Patient is seen and evaluated in follow-up with infectious disease following. Patient maintained on antibiotics and will likely transition to oral. Vascular surgery consulted to evaluate for possible amputation of the right great toe and also possible surgical debridement of the left arredondo wound. Patient continues to have some lower extremity swelling more so on the left and reports his pain is 7/10 on the pain scale. Patient with significant weakness working on going to [facility] and would like to go to [facility]. Will await vascular surgery consultation and evaluation to consider discharge planning moving forward. Patient is cu rrently afebrile. Patient will require insurance authorization as well once discharge planning is in progress. 05/04/2024 Patient is evaluated in follow up today on the medical floor. He is scheduled to undergo left above the knee amputation tomorrow. Abdominal ultrasound was completed yesterday with no evidence of obstructive uropathy gallbladder is WNL. Renal function WNL. 05/05/2024 Patient is evaluated in follow-up on the medical floor he is scheduled to undergo left [id number] amputation today as well as right toe debridement and possible amputation. His renal function remains normal. Hemoglobin A1c is 6.8. Blood pressure better at 120/85. 05/06/2024 Patient is postoperative day #1 left above the knee amputation and partial right great toe amputation. He states pain is fairly controlled at this time. He continues on IV zosyn. White count is 12.5. hgb 8.7. Sodium 135. BP 148/72. 05/07/2024 Patient is evaluated today postoperative day #2 left above the knee amputation a nd partial right great toe amputation. He has no acute complaints today. Continues on IV zosyn. White blood cell count 12.5, hgb 8.7, Sodium 135, renal function normal. No plans for discharge until Friday per vascular. 05/08/2024 Patient is currently sitting on side of the bed. Awake alert and oriented x 3. On room air. Complains of pain in his surgical site. Patient is postoperative day 3 left MIKE Denied any complaints of chest pain or shortness of breath. No nausea vomiting abdominal pain or diarrhea. No cough or sputum production. Laboratory data reviewed from yesterday. Blood sugars fairly controlled. Patient is on antibiotics in the form of Zosyn. ID is on board. Patient is complaining of pain at the surgical site. Fairly controlled with medications. 05/09/2024 Patient is sitting on the side of the bed. Awake alert and oriented x 3. No complaints of chest pain. Left AKA amputation site is bandaged. Pain is improved. No complaints of nausea vomiting or abdominal pain. No diarrhea. Patient otherwise having right lower extremity swelling and blister formation. Wound dressing was done. Laboratory data showed WBC 18.8 hemoglobin 7.7 and johnson telets 259 sodium 136 potassium 4.4 chloride 109 bicarb is 23 BUN 13 and creatinine 0.84 and blood sugar 136 and calcium 8.6. Vascular surgery and ID is on board. Patient remains on antibiotics in the form of Zosyn and Zyvox. 05/10/2024 Patient is sitting on side of bed. Advised to elevate right lower extremity. Significant swelling of the right lower extremity with blister formation. Overall pain is controlled. No fever no chills. Laboratory data showed WBC improved to 12.5 hemoglobin 7.8 and platelets 237 RDW 17.4 BUN 9 and creatinine 0.81 and CRP 14.5. Blood sugar is controlled. Patient is on antibiotics Zosyn and Zyvox. Blood pressure is marginal. 05/11/2024 Patient is sitting in the bed. Awake alert and oriented x 3. Right lower extremity swelling is slightly improved. Was given a dose of IV Lasix this morning. No complaints of fever or chills. Pain is controlled. No nausea or vomiting. Tolerating oral diet. Laboratory showed WBC 15.1 hemoglobin 7.6 and platelets 243 sodium 133 potassium 4.3 chloride 106 bicarb is 23 BUN 12 and creatinine 0.82 and blood sugar 172. Patient is on Zosyn, Zyvox and Diflucan was added. 05/12/2024 Patient is lying in the bed. Awake alert and oriented x 3. Pain is controlled. Wound dressing was done yesterday evening. Otherwise laboratory data showed WBC improved to 14.0 hemoglobin 7.9 and platelets 278 sodium 133 potassium 4.1 chloride 104 bicarb is 21 BUN 13 and creatinine 0.93. CRP 18.5. 05/13/2024 Patient is lying in the bed. Awake alert and oriented x 3. Currently on room air. No complaints of fever or chills. Right leg swelling is better. Pain is controlled. Left AKA amputation site is bandaged. General any nausea or vomiting abdominal pain. Tolerating oral diet. Laboratory data showed WBC trending down to 13.0 hemoglobin 7.1 and platelets 251 sodium 133 potassium 3.9 chloride 105 bicarb is 24 BUN 12 and creatinine 0.80 and blood sugar is 156. Patient is on antibiotics in the form of Zosyn. Also on linezolid. ID is on board. 05/14/2024 Patient is retired, oriented x 3. On room air. Status post left AKA and right great toe amputation. Stump wounds are fracture. Patient has been afebrile. Continued on antibiotics Zosyn and Zyvox. Patient is also on Diflucan. Currently awaiting authorization for rehab transfer. Laboratory data showed WBC 13.8 hemoglobin 7.5 and platelets 250 sodium 134 potassium 4.4 chloride 103 bicarb is 23 BUN 39 creatinine 0.77 blood sugar 148. Calcium 8.6. ID is on board. Review of Systems Constitutional: Denied any fatigue denied any fever. Cardio vascular: denied any chest pain, palpitations Gastrointestinal: denied any nausea, vomiting, diarrhea Pulmonary: Denied any shortness of breath cough Neurologic denied any new focal deficits All inpatient medications were reviewed and appropriate changes in these medications as dictated in the interval history and assessment and plan. PHYSICAL EXAMINATION: GENERAL: The patient is alert and oriented x3, not in any acute distress. Well developed, well nourished. HEENT: Pupils are round and equally reacting to light. EOMI. No scleral icterus. No conjunctival pallor. Normocephalic, atraumatic. No pharyngeal erythema. No thyromegaly. CARDIOVASCULAR: S1 and S2 present. No murmurs, rubs, or gallops. PULMONARY: Chest is clear to auscultation, no wheezing or crackles. ABDOMEN: Soft, nontender, nondistended, normoactive bowel sounds. No palpable organomegaly. MUSCULOSKELETAL: No joint swelling or deformity. EXTREMITIES: Left AKA wound is packed. Right lower extremity edema and foot wound.. NEUROLOGICAL: Gross neurological examination did not reveal any focal deficits. Diffusely weak. SKIN: No rashes. Left AKA site wound. Right great toe wound. Assessment: -VRE bacteremia secondary to PICC line, has been discontinued. -Left malleolar wound underlying osteomyelitis and sepsis, present on admission s/p Left AKA and right great toe partial amputation secondary to gangrenous right great toe. -Episode of VTach/SVT resolved -Chronic heart failure with reduced EF 25-30%. -NSTEMI type 2 -Coronary artery disease with previous CABG and multiple stents -Acute kidney injury, resolved. -Hx of peripheral arterial disease with prior bypass -Diabetes mellitus type 2 -History of stroke 2020 with left sided deficits -Hx hypertension -Hyperlipidemia -Hx of peripheral neuropathy GI prophylaxis DVT prophylaxis Full Code Plan -Continue with pain management with [place]. -Follow-up left malleolar culture -Continues on IV zosyn and linezolid. Diflucan was added. -Cardiology has signed off at this time -Continue aspirin/brilinta -Blood pressure has been dropping into the 100s systolic. Lisinopril has been decreased with parameters. Discontinued hydralazine. -Monitor renal function and repeat labs in the AM -PT/OT consultation in place as plan is for patient to go to [facility] once discharge planning is in progress. Patient will also require insurance authorization. Plan is for discharge to [facility] Objective - Vital Signs Vital signs: Vital Signs Temp 98.8 F 05/14/24 20:50 Pulse 82 05/14/24 20:50 Resp 18 05/14/24 20:50 BP 139/60 05/14/24 20:50 Pulse Ox 100 05/14/24 20:50 FiO2 Intake & Output 05/14/24 05/14/24 05/15/24 06:59 18:59 06:59 Intake Total 534 540 Output Total 400 Balance 134 540 Weight 60 kg Intake: Oral 534 540 Output: Urine 400 Other: Voiding Method Urinal Urinal Urinal # Voids 1 - Labs CBC & Chem 7: 05/15/24 07:06 05/15/24 07:01 Labs: Abnormal Lab Results - Last 24 Hours (Table) 05/14/24 05/14/24 05/14/24 Range/Units 06:02 11:43 20:16 POC Glucose (mg/dL) 178 H 196 H 165 H (70-110) mg/dL
--- NOTE | 2024-05-15 22:24 | P.PN ---
Subjective Progress Note Date: 05/15/24 Pleasant 68-year-old male who had outpatient therapy of a left malleolar wound. Wound to the left arredondo as well as the right great toe. There is concern for gangrenous changes in a patient with peripheral arterial disease. Vascular surgery was consulted to evaluate this patient for possible amputation of the right great toe and also surgical debridement of the left ankle wound. ID has been following closely. We are unable to locate the left ankle wound culture at this time and will need surgical cultures taken during debridement. He had positive blood cultures for VRE. Per lab the most recent blood cultures are negative as well as the PICC line tip. 05/03/2024 Patient is seen and evaluated in follow-up with infectious disease following. Patient maintained on antibiotics and will likely transition to oral. Vascular surgery consulted to evaluate for possible amputation of the right great toe and also possible surgical debridement of the left arredondo wound. Patient continues to have some lower extremity swelling more so on the left and reports his pain is 7/10 on the pain scale. Patient with significant weakness working on going to [facility] and would like to go to [facility]. Will await vascular surgery consultation and evaluation to consider discharge planning moving forward. Patient is cu rrently afebrile. Patient will require insurance authorization as well once discharge planning is in progress. 05/04/2024 Patient is evaluated in follow up today on the medical floor. He is scheduled to undergo left above the knee amputation tomorrow. Abdominal ultrasound was completed yesterday with no evidence of obstructive uropathy gallbladder is WNL. Renal function WNL. 05/05/2024 Patient is evaluated in follow-up on the medical floor he is scheduled to undergo left [id number] amputation today as well as right toe debridement and possible amputation. His renal function remains normal. Hemoglobin A1c is 6.8. Blood pressure better at 120/85. 05/06/2024 Patient is postoperative day #1 left above the knee amputation and partial right great toe amputation. He states pain is fairly controlled at this time. He continues on IV zosyn. White count is 12.5. hgb 8.7. Sodium 135. BP 148/72. 05/07/2024 Patient is evaluated today postoperative day #2 left above the knee amputation a nd partial right great toe amputation. He has no acute complaints today. Continues on IV zosyn. White blood cell count 12.5, hgb 8.7, Sodium 135, renal function normal. No plans for discharge until Friday per vascular. 05/08/2024 Patient is currently sitting on side of the bed. Awake alert and oriented x 3. On room air. Complains of pain in his surgical site. Patient is postoperative day 3 left MIKE Denied any complaints of chest pain or shortness of breath. No nausea vomiting abdominal pain or diarrhea. No cough or sputum production. Laboratory data reviewed from yesterday. Blood sugars fairly controlled. Patient is on antibiotics in the form of Zosyn. ID is on board. Patient is complaining of pain at the surgical site. Fairly controlled with medications. 05/09/2024 Patient is sitting on the side of the bed. Awake alert and oriented x 3. No complaints of chest pain. Left AKA amputation site is bandaged. Pain is improved. No complaints of nausea vomiting or abdominal pain. No diarrhea. Patient otherwise having right lower extremity swelling and blister formation. Wound dressing was done. Laboratory data showed WBC 18.8 hemoglobin 7.7 and johnson telets 259 sodium 136 potassium 4.4 chloride 109 bicarb is 23 BUN 13 and creatinine 0.84 and blood sugar 136 and calcium 8.6. Vascular surgery and ID is on board. Patient remains on antibiotics in the form of Zosyn and Zyvox. 05/10/2024 Patient is sitting on side of bed. Advised to elevate right lower extremity. Significant swelling of the right lower extremity with blister formation. Overall pain is controlled. No fever no chills. Laboratory data showed WBC improved to 12.5 hemoglobin 7.8 and platelets 237 RDW 17.4 BUN 9 and creatinine 0.81 and CRP 14.5. Blood sugar is controlled. Patient is on antibiotics Zosyn and Zyvox. Blood pressure is marginal. 05/11/2024 Patient is sitting in the bed. Awake alert and oriented x 3. Right lower extremity swelling is slightly improved. Was given a dose of IV Lasix this morning. No complaints of fever or chills. Pain is controlled. No nausea or vomiting. Tolerating oral diet. Laboratory showed WBC 15.1 hemoglobin 7.6 and platelets 243 sodium 133 potassium 4.3 chloride 106 bicarb is 23 BUN 12 and creatinine 0.82 and blood sugar 172. Patient is on Zosyn, Zyvox and Diflucan was added. 05/12/2024 Patient is lying in the bed. Awake alert and oriented x 3. Pain is controlled. Wound dressing was done yesterday evening. Otherwise laboratory data showed WBC improved to 14.0 hemoglobin 7.9 and platelets 278 sodium 133 potassium 4.1 chloride 104 bicarb is 21 BUN 13 and creatinine 0.93. CRP 18.5. 05/13/2024 Patient is lying in the bed. Awake alert and oriented x 3. Currently on room air. No complaints of fever or chills. Right leg swelling is better. Pain is controlled. Left AKA amputation site is bandaged. General any nausea or vomiting abdominal pain. Tolerating oral diet. Laboratory data showed WBC trending down to 13.0 hemoglobin 7.1 and platelets 251 sodium 133 potassium 3.9 chloride 105 bicarb is 24 BUN 12 and creatinine 0.80 and blood sugar is 156. Patient is on antibiotics in the form of Zosyn. Also on linezolid. ID is on board. 05/14/2024 Patient is retired, oriented x 3. On room air. Status post left AKA and right great toe amputation. Stump wounds are fracture. Patient has been afebrile. Continued on antibiotics Zosyn and Zyvox. Patient is also on Diflucan. Currently awaiting authorization for rehab transfer. 05/15/2024 Patient is sitting on the side of the bed. Awake alert and oriented x 3. Right leg swelling is better. Denied any nausea vomiting abdominal pain or diarrhea. No cough or sputum production. Patient is being current on antibiotics Zosyn, Zyvox and Diflucan. ID is on board. Laboratory data showed WBC 13.8 hemoglobin 7.5 and platelets 250 sodium 134 potassium 4.4 chloride 103 bicarb is 23 BUN 39 creatinine 0.77 blood sugar 148. Calcium 8.6. ID is on board. Review of Systems Constitutional: Denied any fatigue denied any fever. Cardio vascular: denied any chest pain, palpitations Gastrointestinal: denied any nausea, vomiting, diarrhea Pulmonary: Denied any shortness of breath cough Neurologic denied any new focal deficits All inpatient medications were reviewed and appropriate changes in these medications as dictated in the interval history and assessment and plan. PHYSICAL EXAMINATION: GENERAL: The patient is alert and oriented x3, not in any acute distress. Well developed, well nourished. HEENT: Pupils are round and equally reacting to light. EOMI. No scleral icterus. No conjunctival pallor. Normocephalic, atraumatic. No pharyngeal erythema. No thyromegaly. CARDIOVASCULAR: S1 and S2 present. No murmurs, rubs, or gallops. PULMONARY: Chest is clear to auscultation, no wheezing or crackles. ABDOMEN: Soft, nontender, nondistended, normoactive bowel sounds. No palpable organomegaly. MUSCULOSKELETAL: No joint swelling or deformity. EXTREMITIES: Left AKA wound is packed. Right lower extremity edema and foot wound.. NEUROLOGICAL: Gross neurological examination did not reveal any focal deficits. Diffusely weak. SKIN: No rashes. Left AKA site wound. Right great toe wound. Assessment: -VRE bacteremia secondary to PICC line, has been discontinued. -Left malleolar wound underlying osteomyelitis and sepsis, present on admission s/p Left AKA and right great toe partial amputation secondary to gangrenous right great toe. -Episode of VTach/SVT resolved -Chronic heart failure with reduced EF 25-30%. -NSTEMI type 2 -Coronary artery disease with previous CABG and multiple stents -Acute kidney injury, resolved. -Hx of peripheral arterial disease with prior bypass -Diabetes mellitus type 2 -History of stroke 2020 with left sided deficits -Hx hypertension -Hyperlipidemia -Hx of peripheral neuropathy GI prophylaxis DVT prophylaxis Full Code Plan -Continue with pain management with [place]. -Follow-up left malleolar culture -Continues on IV zosyn and linezolid. Diflucan was added. -Cardiology has signed off at this time -Continue aspirin/brilinta -Blood pressure has been dropping into the 100s systolic. Lisinopril has been decreased with parameters. Discontinued hydralazine. -Monitor renal function and repeat labs in the AM -PT/OT consultation in place as plan is for patient to go to [facility] once discharge planning is in progress. Patient will also require insurance authorization. Plan is for discharge to [facility] Objective - Vital Signs Vital signs: Vital Signs Temp 98.9 F 05/15/24 20:51 Pulse 99 05/15/24 20:51 Resp 18 05/15/24 20:51 BP 141/66 05/15/24 20:51 Pulse Ox 93 L 05/15/24 20:51 FiO2 Intake & Output 05/15/24 05/15/2424 06:59 18:59 06:59 Intake Total 780 462 Output Total 640 200 400 Balance 140 262 -400 Weight 59.8 kg Intake: Oral 780 462 Output: Urine 640 200 400 Other: Voiding Method Urinal Urinal - Labs CBC & Chem 7: 05/15/24 07:06 05/15/24 07:01 Labs: Abnormal Lab Results - Last 24 Hours (Table) 05/15/24 05/15/24 05/15/24 Range/Units 05:50 07:01 07:06 WBC 13.8 H (3.8-10.6) k/uL RBC 2.92 L (4.30-5.90) m/uL Hgb 7.5 L (13.0-17.5) gm/dL Hct 23.5 L (39.0-53.0) % RDW 17.3 H (11.5-15.5) % Neutrophils # 12.6 H (1.3-7.7) k/uL Lymphocytes # 0.9 L (1.0-4.8) k/uL Sodium 134 L (137-145) mmol/L Glucose 148 H (74-99) mg/dL POC Glucose (mg/dL) 169 H (70-110) mg/dL 05/15/24 05/15/24 05/15/24 Range/Units 11:48 16:08 20:27 WBC (3.8-10.6) k/uL RBC (4.30-5.90) m/uL Hgb (13.0-17.5) gm/dL Hct (39.0-53.0) % RDW (11.5-15.5) % Neutrophils # (1.3-7.7) k/uL Lymphocytes # (1.0-4.8) k/uL Sodium (137-145) mmol/L Glucose (74-99) mg/dL POC Glucose (mg/dL) 212 H 166 H 142 H (70-110) mg/dL Assessment and Plan Time with Patient: Greater than 30
[2024-05-16 05:55] LABS: Glucose,Whole Blood 171 mg/dL (70-110)
[2024-05-16 11:51] LABS: Glucose,Whole Blood 218 mg/dL (70-110)
--- NOTE | 2024-05-16 14:37 | P.PN ---
Subjective Progress Note Date: 05/16/24 Principal diagnosis: Reason for follow-up is VRE bacteremia and left lateral malleolar osteomyelitis Patient is a 68-year-old male with multiple comorbidities he did have a left lateral malleolar osteomyelitis diagnosed back in March culture positive for E. coli Enterobacter for which the patient was treated with Zosyn patient subsequently left the [facility] and was not clear he was given antibiotics at home presenting to the hospital with decreased level of responsiveness has been diagnosed with VRE bacteremia likely related to the PICC line which has been dis continued and did have extensive wound to the left lateral malleolus as well as left big toe, patient is status post Left above-knee amputation and Right lower extremity great toe partial amputation completed by vascular surgery on 05/05/2024. On today's evaluation that is 05/16/2024, the patient continues to be afebrile, the patient is on room air and breathing comfortably, the Pt denies having any chest pain or cough, the patient denies having any abdominal pain no vomiting or any diarrhea has been reported by the nursing staff pain to the bilateral lower extremities currently controlled. No new lab has been reported today Objective - Vital Signs Vital signs: Vital Signs Temp 97.6 F 05/16/24 07:20 Pulse 70 05/16/24 07:20 Resp 16 05/16/24 07:20 BP 112/67 05/16/24 07:20 Pulse Ox 100 05/16/24 07:20 FiO2 Intake & Output 05/15/24 05/16/24 05/16/24 18:59 06:59 18:59 Intake Total 462 Output Total 200 400 Balance 262 -400 Intake: Oral 462 Output: Urine 200 400 Other: Voiding Method Urinal Urinal # Voids 1 - Exam GENERAL DESCRIPTION: An elderly male lying in bed in no distress RESPIRATORY SYSTEM: Unlabored breathing , decreased breath sounds at bases HEART: S1 S2 regular rate and rhythm , ABDOMEN: Soft , no tenderness, EXTREMITIES: Left AKA stump is currently dressed left big toe partial amputation with a wound on the dorsum with no slough tissue - Labs CBC & Chem 7: 05/15/24 07:06 05/15/24 07:01 Labs: Abnormal Lab Results - Last 24 Hours (Table) 05/15/24 05/15/24 05/16/24 Range/Units 16:08 20:27 05:54 POC Glucose (mg/dL) 166 H 142 H 171 H (70-110) mg/dL 05/16/24 Range/Units 11:49 POC Glucose (mg/dL) 218 H (70-110) mg/dL Assessment and Plan (1) VRE bacteremia Current Visit: Yes Status: Acute Code(s): R78.81 - BACTEREMIA; B95.2 - ENTEROCOCCUS THE CAUSE OF DISEASES CLASSIFIED ELSEWHERE; Z16.21 - RESISTANCE TO VANCOMYCIN SNOMED Code(s): 4064108441 (2) Foot osteomyelitis, left Current Visit: Yes Status: Acute Code(s): M86.9 - OSTEOMYELITIS, UNSPECIFIED SNOMED Code(s): 5204283303957486 Plan: 1patient with VRE bacteremia source likely PICC line which has been discontinued, patient received about 12 days of oral Zyvox to continue for about a week on discharge 2patient did have a stage III right gluteal wound local wound care with [facility] followed by moist dressing keep the area of the pressure 3-patient is status post left [id number] amputation and partial amputation of the right big toe overall wound base looks clean 4-patient remains to be afebrile white count mildly elevated yesterday no CBC has been done today 5- plan is to continue with the Diflucan for about a week on discharge patient is currently waiting for placement Dictation was produced using [employer] dictation software. please excuse any grammatical, word or spelling errors. Time with Patient: Less than 30
[2024-05-16 17:24] LABS: Glucose,Whole Blood 166 mg/dL (70-110)
[2024-05-16 20:56] LABS: Glucose,Whole Blood 164 mg/dL (70-110)
[2024-05-17 05:57] LABS: Glucose,Whole Blood 190 mg/dL (70-110)
[2024-05-17 09:07] LABS: Blood Urea Nitrogen 12.9 mg/dL (9.0-27.0); Calcium 8.4 mg/dL (8.7-10.3); Carbon Dioxide 19.9 mmol/L (21.6-31.8); Chloride 103 mmol/L (96-109); Glucose 149 mg/dL (70-110); Potassium 4.1 mmol/L (3.5-5.5); Sodium 137 mmol/L (135-145)
[2024-05-17 09:55] LABS: Basophils # (A) 0.05 X 10*3/uL (0.00-0.10); Basophils % (A) 0.3 %; Eosinophils # (A) 0.01 X 10*3/uL (0.04-0.35); Eosinophils % (A) 0.1 %; HCT 20.1 % (39.6-50.0); HGB 6.3 g/dL (13.0-17.0); Lymphocytes # (A) 1.53 X 10*3/uL (0.90-5.00); Lymphocytes % (A) 10.6 %; MCH 25.1 pg (27.0-32.0); MCHC 31.3 g/dL (32.0-37.0); MCV 80.1 FL (80.0-97.0); Mean Platelet Volume 12.1 FL (9.5-12.2); Monocytes # (A) 0.57 X 10*3/uL (0.20-1.00); NRBC Per 100 WBC 0.03 X 10*3/uL (0.00-0.01); Neutrophils # (A) 12.15 X 10*3/uL (1.80-7.70); Neutrophils % (A) 84.4 %; Platelet Count 219 X 10*3/uL (140-440); RBC 2.51 X 10*6/uL (4.40-5.60); RDW 17.3 % (11.5-14.5)
[2024-05-17 11:48] LABS: Glucose,Whole Blood 151 mg/dL (70-110)
[2024-05-17 16:51] LABS: Glucose,Whole Blood 208 mg/dL (70-110)
[2024-05-17 20:57] LABS: Glucose,Whole Blood 166 mg/dL (70-110)
[2024-05-18 05:30] LABS: Glucose,Whole Blood 178 mg/dL (70-110)
[2024-05-18 08:43] LABS: Basophils # (A) 0.04 X 10*3/uL (0.00-0.10); Basophils % (A) 0.2 %; Eosinophils # (A) 0.01 X 10*3/uL (0.04-0.35); Eosinophils % (A) 0.1 %; HCT 20.3 % (39.6-50.0); HGB 6.6 g/dL (13.0-17.0); Lymphocytes # (A) 1.31 X 10*3/uL (0.90-5.00); Lymphocytes % (A) 6.6 %; MCH 25.5 pg (27.0-32.0); MCHC 32.5 g/dL (32.0-37.0); MCV 78.4 FL (80.0-97.0); Mean Platelet Volume 12.3 FL (9.5-12.2); Monocytes # (A) 0.74 X 10*3/uL (0.20-1.00); Monocytes % (A) 3.7 %; NRBC Per 100 WBC 0.05 X 10*3/uL (0.00-0.01); Neutrophils # (A) 17.63 X 10*3/uL (1.80-7.70); Neutrophils % (A) 88.5 %; Platelet Count 210 X 10*3/uL (140-440); RBC 2.59 X 10*6/uL (4.40-5.60); RDW 17.3 % (11.5-14.5); WBC 19.91 X 10*3/uL (4.50-10.00)
[2024-05-18 08:47] LABS: Blood Urea Nitrogen 13.5 mg/dL (9.0-27.0); Calcium 8.4 mg/dL (8.7-10.3); Carbon Dioxide 18.9 mmol/L (21.6-31.8); Chloride 102 mmol/L (96-109); Glucose 164 mg/dL (70-110); Potassium 4.2 mmol/L (3.5-5.5); Sodium 136 mmol/L (135-145)
[2024-05-18 11:07] LABS: Glucose,Whole Blood 196 mg/dL (70-110)
--- NOTE | 2024-05-18 15:45 | P.PN ---
Subjective Progress Note Date: 05/17/24 Principal diagnosis: Reason for follow-up is VRE bacteremia and left lateral malleolar osteomyelitis Patient is a 68-year-old male with multiple comorbidities he did have a left lateral malleolar osteomyelitis diagnosed back in March culture positive for E. coli Enterobacter for which the patient was treated with Zosyn patient subsequently left the assisted and was not clear he was given antibiotics at home presenting to the hospital with decreased level of responsiveness has been diagnosed with VRE bacteremia likely related to the PICC line which has been dis continued and did have extensive wound to the left lateral malleolus as well as left big toe, patient is status post Left above-knee amputation and Right lower extremity great toe partial amputation completed by vascular surgery on 05/05/2024. On today's evaluation that is 05/18/2024, patient has been afebrile, patient is breathing comfortably and is currently on room air, patient denies having any significant cough no chest pain shortness of breath, patient denies nausea vomiting or diarrhea and no abdominal pain or pain to the lower extremities. Patient did have a white count of 14.40, hemoglobin is 6.3, creatinine is 1.0 Objective - Vital Signs Vital signs: Vital Signs Temp 98.5 F 05/17/24 06:58 Pulse 102 H 05/17/24 06:58 Resp 17 05/17/24 06:58 BP 98/62 05/17/24 06:58 Pulse Ox 100 05/17/24 06:58 FiO2 Intake & Output 05/16/24 05/17/24 05/17/24 18:59 06:59 18:59 Other: Voiding Method Urinal Urinal # Voids 3 1 # Bowel Movements 1 - Exam GENERAL DESCRIPTION: An elderly male lying in bed in no distress RESPIRATORY SYSTEM: Unlabored breathing , decreased breath sounds at bases HEART: S1 S2 regular rate and rhythm , ABDOMEN: Soft , no tenderness, EXTREMITIES: Left AKA stump is currently dressed left big toe partial amputation with a wound on the dorsum with no slough tissue - Labs CBC & Chem 7: 05/18/24 04:51 05/18/24 04:51 Labs: Abnormal Lab Results - Last 24 Hours (Table) 05/16/24 05/16/24 05/17/24 Range/Units 17:22 20:54 04:22 WBC 14.40 H (4.50-10.00) X 10*3/uL RBC 2.51 L (4.40-5.60) X 10*6/uL Hgb 6.3 A* (13.0-17.0) g/dL Hct 20.1 L (39.6-50.0) % MCH 25.1 L (27.0-32.0) pg MCHC 31.3 L (32.0-37.0) g/dL RDW 17.3 H (11.5-14.5) % Immature Gran # 0.09 H (0.00-0.04) X 10*3/uL Neutrophils # 12.15 H (1.80-7.70) X 10*3/uL Eosinophils # 0.01 L (0.04-0.35) X 10*3/uL NRBC/100 WBC Diff 0.03 H (0.00-0.01) X 10*3/uL Carbon Dioxide (21.6-31.8) mmol/L Anion Gap (4.00-12.00) mmol/L Glucose (70-110) mg/dL POC Glucose (mg/dL) 166 H 164 H (70-110) mg/dL Calcium (8.7-10.3) mg/dL 05/17/24 05/17/24 05/17/24 Range/Units 04:22 05:56 11:46 WBC (4.50-10.00) X 10*3/uL RBC (4.40-5.60) X 10*6/uL Hgb (13.0-17.0) g/dL Hct (39.6-50.0) % MCH (27.0-32.0) pg MCHC (32.0-37.0) g/dL RDW (11.5-14.5) % Immature Gran # (0.00-0.04) X 10*3/uL Neutrophils # (1.80-7.70) X 10*3/uL Eosinophils # (0.04-0.35) X 10*3/uL NRBC/100 WBC Diff (0.00-0.01) X 10*3/uL Carbon Dioxide 19.9 L (21.6-31.8) mmol/L Anion Gap 14.10 H (4.00-12.00) mmol/L Glucose 149 H (70-110) mg/dL POC Glucose (mg/dL) 190 H 151 H (70-110) mg/dL Calcium 8.4 L (8.7-10.3) mg/dL Assessment and Plan (1) VRE bacteremia Current Visit: Yes Status: Acute Code(s): R78.81 - BACTEREMIA; B95.2 - ENTEROCOCCUS THE CAUSE OF DISEASES CLASSIFIED ELSEWHERE; Z16.21 - RESISTANCE TO VANCOMYCIN SNOMED Code(s): 4269872663 (2) Foot osteomyelitis, left Current Visit: Yes Status: Acute Code(s): M86.9 - OSTEOMYELITIS, UNSPECIFIED SNOMED Code(s): 5896742017564585 Plan: 1patient with VRE bacteremia source likely PICC line which has been discontinued, patient received about 12 days of oral Zyvox to continue for about a week on discharge 2patient did have a stage III right gluteal wound local wound care with Medihoney followed by moist dressing keep the area of the pressure 3-patient is status post left [id number] amputation and partial amputation of the right big toe 4-patient remains to be afebrile, patient noticed to have slight worsening of the white count need to be monitored closely continue with the Zyvox and Diflucan Dictation was produced using [employer] dictation software. please excuse any grammatical, word or spelling errors. Time with Patient: Less than 30
--- NOTE | 2024-05-18 15:47 | P.PN ---
Subjective Progress Note Date: 05/18/24 Principal diagnosis: Reason for follow-up is VRE bacteremia and left lateral malleolar osteomyelitis Patient is a 68-year-old male with multiple comorbidities he did have a left lateral malleolar osteomyelitis diagnosed back in March culture positive for E. coli Enterobacter for which the patient was treated with Zosyn patient subsequently left the assisted and was not clear he was given antibiotics at home presenting to the hospital with decreased level of responsiveness has been diagnosed with VRE bacteremia likely related to the PICC line which has been dis continued and did have extensive wound to the left lateral malleolus as well as left big toe, patient is status post Left above-knee amputation and Right lower extremity great toe partial amputation completed by vascular surgery on 05/05/2024. On today's evaluation that is 05/18/2024, patient has been afebrile, patient is breathing comfortably and is currently on room air, patient denies having any significant cough no chest pain shortness of breath, patient denies nausea vomiting or diarrhea and no abdominal pain or pain to the lower extremities. Patient did have a white count of is up to 19,000, creatinine 6.6 Objective - Vital Signs Vital signs: Vital Signs Temp 98.2 F 05/18/24 07:55 Pulse 103 H 05/18/24 07:55 Resp 17 05/18/24 07:55 BP 78/55 05/18/24 07:55 Pulse Ox 100 05/18/24 07:55 FiO2 Intake & Output 05/17/24 05/18/24 05/18/24 18:59 06:59 18:59 Output Total 125 Balance -125 Output: Urine 125 Other: Voiding Method Urinal Bedside Commode Bedside Commode Urinal Urinal # Voids 3 1 - Exam GENERAL DESCRIPTION: An elderly male lying in bed in no distress RESPIRATORY SYSTEM: Unlabored breathing , decreased breath sounds at bases HEART: S1 S2 regular rate and rhythm , ABDOMEN: Soft , no tenderness, EXTREMITIES: Left AKA stump is currently dressed left big toe partial amputation with a wound on the dorsum with no slough tissue - Labs CBC & Chem 7: 05/18/24 04:51 05/18/24 04:51 Labs: Abnormal Lab Results - Last 24 Hours (Table) 05/17/24 05/17/24 05/18/24 Range/Units 16:50 20:56 04:51 WBC 19.91 H (4.50-10.00) X 10*3/uL RBC 2.59 L (4.40-5.60) X 10*6/uL Hgb 6.6 A* (13.0-17.0) g/dL Hct 20.3 L (39.6-50.0) % MCV 78.4 L (80.0-97.0) FL MCH 25.5 L (27.0-32.0) pg RDW 17.3 H (11.5-14.5) % MPV 12.3 H (9.5-12.2) FL Immature Gran # 0.18 H (0.00-0.04) X 10*3/uL Neutrophils # 17.63 H (1.80-7.70) X 10*3/uL Eosinophils # 0.01 L (0.04-0.35) X 10*3/uL NRBC/100 WBC Diff 0.05 H (0.00-0.01) X 10*3/uL Carbon Dioxide (21.6-31.8) mmol/L Anion Gap (4.00-12.00) mmol/L Glucose (70-110) mg/dL POC Glucose (mg/dL) 208 H 166 H (70-110) mg/dL Calcium (8.7-10.3) mg/dL 05/18/24 05/18/24 05/18/24 Range/Units 04:51 05:28 11:07 WBC (4.50-10.00) X 10*3/uL RBC (4.40-5.60) X 10*6/uL Hgb (13.0-17.0) g/dL Hct (39.6-50.0) % MCV (80.0-97.0) FL MCH (27.0-32.0) pg RDW (11.5-14.5) % MPV (9.5-12.2) FL Immature Gran # (0.00-0.04) X 10*3/uL Neutrophils # (1.80-7.70) X 10*3/uL Eosinophils # (0.04-0.35) X 10*3/uL NRBC/100 WBC Diff (0.00-0.01) X 10*3/uL Carbon Dioxide 18.9 L (21.6-31.8) mmol/L Anion Gap 15.10 H (4.00-12.00) mmol/L Glucose 164 H (70-110) mg/dL POC Glucose (mg/dL) 178 H 196 H (70-110) mg/dL Calcium 8.4 L (8.7-10.3) mg/dL Assessment and Plan (1) VRE bacteremia Current Visit: Yes Status: Acute Code(s): R78.81 - BACTEREMIA; B95.2 - ENTEROCOCCUS THE CAUSE OF DISEASES CLASSIFIED ELSEWHERE; Z16.21 - RESISTANCE TO VANCOMYCIN SNOMED Code(s): 2232482618 (2) Foot osteomyelitis, left Current Visit: Yes Status: Acute Code(s): M86.9 - OSTEOMYELITIS, UNSPECIFIED SNOMED Code(s): 4943062237779120 Plan: 1patient with VRE bacteremia source likely PICC line which has been discontinued, patient received about 12 days of oral Zyvox to continue for about a week on discharge 2patient did have a stage III right gluteal wound local wound care with Medihoney followed by moist dressing keep the area of the pressure 3-patient is status post left [id number] amputation and partial amputation of the right big toe 4-patient remains to be afebrile, However the patient was noticed to have significant worsening of his white count, questionably related to possible GI bleeding the patient was a drop in hemoglobin to 6.6 we will obtain culture check a CRP and procalcitonin if spiking fever we will have to restart his Zosyn Dictation was produced using [employer] dictation software. please excuse any gramma tical, word or spelling errors. Time with Patient: Less than 30
[2024-05-18 16:26] LABS: Glucose,Whole Blood 174 mg/dL (70-110)
[2024-05-18 20:49] LABS: Glucose,Whole Blood 142 mg/dL (70-110)
--- NOTE | 2024-05-19 00:31 | P.PN ---
Subjective Progress Note Date: 05/16/24 Pleasant 68-year-old male who had outpatient therapy of a left malleolar wound. Wound to the left arredondo as well as the right great toe. There is concern for gangrenous changes in a patient with peripheral arterial disease. Vascular surgery was consulted to evaluate this patient for possible amputation of the right great toe and also surgical debridement of the left ankle wound. ID has been following closely. We are unable to locate the left ankle wound culture at this time and will need surgical cultures taken during debridement. He had positive blood cultures for VRE. Per lab the most recent blood cultures are negative as well as the PICC line tip. 05/03/2024 Patient is seen and evaluated in follow-up with infectious disease following. Patient maintained on antibiotics and will likely transition to oral. Vascular surgery consulted to evaluate for possible amputation of the right great toe and also possible surgical debridement of the left arredondo wound. Patient continues to have some lower extremity swelling more so on the left and reports his pain is 7/10 on the pain scale. Patient with significant weakness working on going to [facility] and would like to go to [facility]. Will await vascular surgery consultation and evaluation to consider discharge planning moving forward. Patient is cu rrently afebrile. Patient will require insurance authorization as well once discharge planning is in progress. 05/04/2024 Patient is evaluated in follow up today on the medical floor. He is scheduled to undergo left above the knee amputation tomorrow. Abdominal ultrasound was completed yesterday with no evidence of obstructive uropathy gallbladder is WNL. Renal function WNL. 05/05/2024 Patient is evaluated in follow-up on the medical floor he is scheduled to undergo left rkjch-tjq-knox amputation today as well as right toe debridement and possible amputation. His renal function remains normal. Hemoglobin A1c is 6.8. Blood pressure better at 120/85. 05/06/2024 Patient is postoperative day #1 left above the knee amputation and partial right great toe amputation. He states pain is fairly controlled at this time. He continues on IV zosyn. White count is 12.5. hgb 8.7. Sodium 135. BP 148/72. 05/07/2024 Patient is evaluated today postoperative day #2 left above the knee amputation a nd partial right great toe amputation. He has no acute complaints today. Continues on IV zosyn. White blood cell count 12.5, hgb 8.7, Sodium 135, renal function normal. No plans for discharge until Friday per vascular. 05/08/2024 Patient is currently sitting on side of the bed. Awake alert and oriented x 3. On room air. Complains of pain in his surgical site. Patient is postoperative day 3 left MIKE Denied any complaints of chest pain or shortness of breath. No nausea vomiting abdominal pain or diarrhea. No cough or sputum production. Laboratory data reviewed from yesterday. Blood sugars fairly controlled. Patient is on antibiotics in the form of Zosyn. ID is on board. Patient is complaining of pain at the surgical site. Fairly controlled with medications. 05/09/2024 Patient is sitting on the side of the bed. Awake alert and oriented x 3. No complaints of chest pain. Left AKA amputation site is bandaged. Pain is improved. No complaints of nausea vomiting or abdominal pain. No diarrhea. Patient otherwise having right lower extremity swelling and blister formation. Wound dressing was done. Laboratory data showed WBC 18.8 hemoglobin 7.7 and johnson telets 259 sodium 136 potassium 4.4 chloride 109 bicarb is 23 BUN 13 and creatinine 0.84 and blood sugar 136 and calcium 8.6. Vascular surgery and ID is on board. Patient remains on antibiotics in the form of Zosyn and Zyvox. 05/10/2024 Patient is sitting on side of bed. Advised to elevate right lower extremity. Significant swelling of the right lower extremity with blister formation. Overall pain is controlled. No fever no chills. Laboratory data showed WBC improved to 12.5 hemoglobin 7.8 and platelets 237 RDW 17.4 BUN 9 and creatinine 0.81 and CRP 14.5. Blood sugar is controlled. Patient is on antibiotics Zosyn and Zyvox. Blood pressure is marginal. 05/11/2024 Patient is sitting in the bed. Awake alert and oriented x 3. Right lower extremity swelling is slightly improved. Was given a dose of IV Lasix this morning. No complaints of fever or chills. Pain is controlled. No nausea or vomiting. Tolerating oral diet. Laboratory showed WBC 15.1 hemoglobin 7.6 and platelets 243 sodium 133 potassium 4.3 chloride 106 bicarb is 23 BUN 12 and creatinine 0.82 and blood sugar 172. Patient is on Zosyn, Zyvox and Diflucan was added. 05/12/2024 Patient is lying in the bed. Awake alert and oriented x 3. Pain is controlled. Wound dressing was done yesterday evening. Otherwise laboratory data showed WBC improved to 14.0 hemoglobin 7.9 and platelets 278 sodium 133 potassium 4.1 chloride 104 bicarb is 21 BUN 13 and creatinine 0.93. CRP 18.5. 05/13/2024 Patient is lying in the bed. Awake alert and oriented x 3. Currently on room air. No complaints of fever or chills. Right leg swelling is better. Pain is controlled. Left AKA amputation site is bandaged. General any nausea or vomiting abdominal pain. Tolerating oral diet. Laboratory data showed WBC trending down to 13.0 hemoglobin 7.1 and platelets 251 sodium 133 potassium 3.9 chloride 105 bicarb is 24 BUN 12 and creatinine 0.80 and blood sugar is 156. Patient is on antibiotics in the form of Zosyn. Also on linezolid. ID is on board. 05/14/2024 Patient is retired, oriented x 3. On room air. Status post left AKA and right great toe amputation. Stump wounds are fracture. Patient has been afebrile. Continued on antibiotics Zosyn and Zyvox. Patient is also on Diflucan. Currently awaiting authorization for rehab transfer. 05/15/2024 Patient is sitting on the side of the bed. Awake alert and oriented x 3. Right leg swelling is better. Denied any nausea vomiting abdominal pain or diarrhea. No cough or sputum production. Patient is being current on antibiotics Zosyn, Zyvox and Diflucan. ID is on board. Laboratory data showed WBC 13.8 hemoglobin 7.5 and platelets 250 sodium 134 potassium 4.4 chloride 103 bicarb is 23 BUN 39 creatinine 0.77 blood sugar 148. Calcium 8.6. ID is on board. 05/16/2024 Patient is sitting on the side of the bed. Awake alert and oriented x 3. Bilateral lower extremity pain is controlled. No complaints of nausea or vomiting. Patient has been afebrile. No new laboratory data today. Patient is being continued on antibiotics at home Zyvox. ID is on board. Review of Systems Constitutional: Denied any fatigue denied any fever. Cardio vascular: denied any chest pain, palpitations Gastrointestinal: denied any nausea, vomiting, diarrhea Pulmonary: Denied any shortness of breath cough Neurologic denied any new focal deficits All inpatient medications were reviewed and appropriate changes in these medications as dictated in the interval history and assessment and plan. PHYSICAL EXAMINATION: GENERAL: The patient is alert and oriented x3, not in any acute distress. Well developed, well nourished. HEENT: Pupils are round and equally reacting to light. EOMI. No scleral icterus. No conjunctival pallor. Normocephalic, atraumatic. No pharyngeal erythema. No thyromegaly. CARDIOVASCULAR: S1 and S2 present. No murmurs, rubs, or gallops. PULMONARY: Chest is clear to auscultation, no wheezing or crackles. ABDOMEN: Soft, nontender, nondistended, normoactive bowel sounds. No palpable organomegaly. MUSCULOSKELETAL: No joint swelling or deformity. EXTREMITIES: Left AKA wound is packed. Right lower extremity edema and foot wound.. NEUROLOGICAL: Gross neurological examination did not reveal any focal deficits. Diffusely weak. SKIN: No rashes. Left AKA site wound. Right great toe wound. Assessment: -VRE bacteremia secondary to PICC line, has been discontinued. -Left malleolar wound underlying osteomyelitis and sepsis, present on admission s/p Left AKA and right great toe partial amputation secondary to gangrenous right great toe. -Episode of VTach/SVT resolved -Chronic heart failure with reduced EF 25-30%. -NSTEMI type 2 -Coronary artery disease with previous CABG and multiple stents -Acute kidney injury, resolved. -Hx of peripheral arterial disease with prior bypass -Diabetes mellitus type 2 -History of stroke 2020 with left sided deficits -Hx hypertension -Hyperlipidemia -Hx of peripheral neuropathy GI prophylaxis DVT prophylaxis Full Code Plan -Continue with pain management with [place]. -Follow-up left malleolar culture -Continues on linezolid. Diflucan was added. Completed course with Zosyn. -Cardiology has signed off at this time -Continue aspirin/brilinta -Blood pressure has been dropping into the 100s systolic. Lisinopril has been decreased with parameters. Discontinued hydralazine. -Monitor renal function and repeat labs in the AM -PT/OT consultation in place as plan is for patient to go to [facility] once discharge planning is in progress. Patient will also require insurance authorization. Plan is for discharge to [facility] Objective - Vital Signs Vital signs: Vital Signs Temp 99.0 F 05/16/24 19:22 Pulse 89 05/16/24 19:22 Resp 16 05/16/24 19:22 BP 88/48 05/16/24 19:22 Pulse Ox 100 05/16/24 19:22 FiO2 Intake & Output 05/16/24 05/16/24 05/17/24 06:59 18:59 06:59 Output Total 400 Balance -400 Output: Urine 400 Other: Voiding Method Urinal Urinal # Voids 1 3 # Bowel Movements 1 - Labs CBC & Chem 7: 05/18/24 04:51 05/18/24 04:51 Labs: Abnormal Lab Results - Last 24 Hours (Table) 05/16/24 05/16/24 05/16/24 Range/Units 05:54 11:49 17:22 POC Glucose (mg/dL) 171 H 218 H 166 H (70-110) mg/dL 05/16/24 Range/Units 20:54 POC Glucose (mg/dL) 164 H (70-110) mg/dL
--- NOTE | 2024-05-19 00:32 | P.PN ---
Subjective Progress Note Date: 05/17/24 Pleasant 68-year-old male who had outpatient therapy of a left malleolar wound. Wound to the left arredondo as well as the right great toe. There is concern for gangrenous changes in a patient with peripheral arterial disease. Vascular surgery was consulted to evaluate this patient for possible amputation of the right great toe and also surgical debridement of the left ankle wound. ID has been following closely. We are unable to locate the left ankle wound culture at this time and will need surgical cultures taken during debridement. He had positive blood cultures for VRE. Per lab the most recent blood cultures are negative as well as the PICC line tip. 05/03/2024 Patient is seen and evaluated in follow-up with infectious disease following. Patient maintained on antibiotics and will likely transition to oral. Vascular surgery consulted to evaluate for possible amputation of the right great toe and also possible surgical debridement of the left arredondo wound. Patient continues to have some lower extremity swelling more so on the left and reports his pain is 7/10 on the pain scale. Patient with significant weakness working on going to [facility] and would like to go to [facility]. Will await vascular surgery consultation and evaluation to consider discharge planning moving forward. Patient is cu rrently afebrile. Patient will require insurance authorization as well once discharge planning is in progress. 05/04/2024 Patient is evaluated in follow up today on the medical floor. He is scheduled to undergo left above the knee amputation tomorrow. Abdominal ultrasound was completed yesterday with no evidence of obstructive uropathy gallbladder is WNL. Renal function WNL. 05/05/2024 Patient is evaluated in follow-up on the medical floor he is scheduled to undergo left [id number] amputation today as well as right toe debridement and possible amputation. His renal function remains normal. Hemoglobin A1c is 6.8. Blood pressure better at 120/85. 05/06/2024 Patient is postoperative day #1 left above the knee amputation and partial right great toe amputation. He states pain is fairly controlled at this time. He continues on IV zosyn. White count is 12.5. hgb 8.7. Sodium 135. BP 148/72. 05/07/2024 Patient is evaluated today postoperative day #2 left above the knee amputation a nd partial right great toe amputation. He has no acute complaints today. Continues on IV zosyn. White blood cell count 12.5, hgb 8.7, Sodium 135, renal function normal. No plans for discharge until Friday per vascular. 05/08/2024 Patient is currently sitting on side of the bed. Awake alert and oriented x 3. On room air. Complains of pain in his surgical site. Patient is postoperative day 3 left MIKE Denied any complaints of chest pain or shortness of breath. No nausea vomiting abdominal pain or diarrhea. No cough or sputum production. Laboratory data reviewed from yesterday. Blood sugars fairly controlled. Patient is on antibiotics in the form of Zosyn. ID is on board. Patient is complaining of pain at the surgical site. Fairly controlled with medications. 05/09/2024 Patient is sitting on the side of the bed. Awake alert and oriented x 3. No complaints of chest pain. Left AKA amputation site is bandaged. Pain is improved. No complaints of nausea vomiting or abdominal pain. No diarrhea. Patient otherwise having right lower extremity swelling and blister formation. Wound dressing was done. Laboratory data showed WBC 18.8 hemoglobin 7.7 and johnson telets 259 sodium 136 potassium 4.4 chloride 109 bicarb is 23 BUN 13 and creatinine 0.84 and blood sugar 136 and calcium 8.6. Vascular surgery and ID is on board. Patient remains on antibiotics in the form of Zosyn and Zyvox. 05/10/2024 Patient is sitting on side of bed. Advised to elevate right lower extremity. Significant swelling of the right lower extremity with blister formation. Overall pain is controlled. No fever no chills. Laboratory data showed WBC improved to 12.5 hemoglobin 7.8 and platelets 237 RDW 17.4 BUN 9 and creatinine 0.81 and CRP 14.5. Blood sugar is controlled. Patient is on antibiotics Zosyn and Zyvox. Blood pressure is marginal. 05/11/2024 Patient is sitting in the bed. Awake alert and oriented x 3. Right lower extremity swelling is slightly improved. Was given a dose of IV Lasix this morning. No complaints of fever or chills. Pain is controlled. No nausea or vomiting. Tolerating oral diet. Laboratory showed WBC 15.1 hemoglobin 7.6 and platelets 243 sodium 133 potassium 4.3 chloride 106 bicarb is 23 BUN 12 and creatinine 0.82 and blood sugar 172. Patient is on Zosyn, Zyvox and Diflucan was added. 05/12/2024 Patient is lying in the bed. Awake alert and oriented x 3. Pain is controlled. Wound dressing was done yesterday evening. Otherwise laboratory data showed WBC improved to 14.0 hemoglobin 7.9 and platelets 278 sodium 133 potassium 4.1 chloride 104 bicarb is 21 BUN 13 and creatinine 0.93. CRP 18.5. 05/13/2024 Patient is lying in the bed. Awake alert and oriented x 3. Currently on room air. No complaints of fever or chills. Right leg swelling is better. Pain is controlled. Left AKA amputation site is bandaged. General any nausea or vomiting abdominal pain. Tolerating oral diet. Laboratory data showed WBC trending down to 13.0 hemoglobin 7.1 and platelets 251 sodium 133 potassium 3.9 chloride 105 bicarb is 24 BUN 12 and creatinine 0.80 and blood sugar is 156. Patient is on antibiotics in the form of Zosyn. Also on linezolid. ID is on board. 05/14/2024 Patient is retired, oriented x 3. On room air. Status post left AKA and right great toe amputation. Stump wounds are fracture. Patient has been afebrile. Continued on antibiotics Zosyn and Zyvox. Patient is also on Diflucan. Currently awaiting authorization for rehab transfer. 05/15/2024 Patient is sitting on the side of the bed. Awake alert and oriented x 3. Right leg swelling is better. Denied any nausea vomiting abdominal pain or diarrhea. No cough or sputum production. Patient is being current on antibiotics Zosyn, Zyvox and Diflucan. ID is on board. Laboratory data showed WBC 13.8 hemoglobin 7.5 and platelets 250 sodium 134 potassium 4.4 chloride 103 bicarb is 23 BUN 39 creatinine 0.77 blood sugar 148. Calcium 8.6. ID is on board. 05/16/2024 Patient is sitting on the side of the bed. Awake alert and oriented x 3. Bilateral lower extremity pain is controlled. No complaints of nausea or vomiting. Patient has been afebrile. No new laboratory data today. Patient is being continued on antibiotics at home Zyvox. ID is on board. 05/17/2024 Patient is lying in the bed. Awake alert and oriented x 3. No complaints of chest pain or shortness of breath. Pain is fairly controlled. No headache or dizziness or lightheadedness. Denies any hematemesis or melena. Laboratory data showed WBC 14.4 hemoglobin 6.3 and platelets 219 Sodium 137 potassium 4.1 chloride 103 BUN 14.1 and creatinine 1.0 and blood sugar 149. Patient is on antibiotics of Zyvox. ID is on board. Follow-up repeat H&H. Review of Systems Constitutional: Denied any fatigue denied any fever. Cardio vascular: denied any chest pain, palpitations Gastrointestinal: denied any nausea, vomiting, diarrhea Pulmonary: Denied any shortness of breath cough Neurologic denied any new focal deficits All inpatient medications were reviewed and appropriate changes in these medications as dictated in the interval history and assessment and plan. PHYSICAL EXAMINATION: GENERAL: The patient is alert and oriented x3, not in any acute distress. Well developed, well nourished. HEENT: Pupils are round and equally reacting to light. EOMI. No scleral icterus. No conjunctival pallor. Normocephalic, atraumatic. No pharyngeal erythema. No thyromegaly. CARDIOVASCULAR: S1 and S2 present. No murmurs, rubs, or gallops. PULMONARY: Chest is clear to auscultation, no wheezing or crackles. ABDOMEN: Soft, nontender, nondistended, normoactive bowel sounds. No palpable o rganomegaly. MUSCULOSKELETAL: No joint swelling or deformity. EXTREMITIES: Left AKA wound is packed. Right lower extremity edema and foot wound.. NEUROLOGICAL: Gross neurological examination did not reveal any focal deficits. Diffusely weak. SKIN: No rashes. Left AKA site wound. Right great toe wound. Assessment: -VRE bacteremia secondary to PICC line, has been discontinued. -Left malleolar wound underlying osteomyelitis and sepsis, present on admission s/p Left AKA and right great toe partial amputation secondary to gangrenous right great toe. -Episode of VTach/SVT resolved -Chronic heart failure with reduced EF 25-30%. -NSTEMI type 2 -Coronary artery disease with previous CABG and multiple stents -Acute kidney injury, resolved. -Hx of peripheral arterial disease with prior bypass -Diabetes mellitus type 2 -History of stroke 2020 with left sided deficits -Hx hypertension -Hyperlipidemia -Hx of peripheral neuropathy GI prophylaxis DVT prophylaxis Full Code Plan -Continue with pain management with [facility]. -Follow-up left malleolar culture -Continues on linezolid. Diflucan was added. Completed course with Zosyn. -Cardiology has signed off at this time -Continue aspirin/brilinta -Blood pressure has been dropping into the 100s systolic. Lisinopril has been decreased with parameters. Discontinued hydralazine. -Monitor renal function and repeat labs in the AM -PT/OT consultation in place as plan is for patient to go to [facility] once discharge planning is in progress. Patient will also require insurance authorization. Plan is for discharge to [facility] Objective - Vital Signs Vital signs: Vital Signs Temp 99.3 F 05/17/24 19:07 Pulse 73 05/17/24 19:07 Resp 17 05/17/24 19:07 BP 94/59 05/17/24 19:07 Pulse Ox 97 05/17/24 19:07 FiO2 Intake & Output 05/17/24 05/17/24 05/18/24 06:59 18:59 06:59 Other: Voiding Method Urinal Urinal # Voids 1 3 - Labs CBC & Chem 7: 05/18/24 04:51 05/18/24 04:51 Labs: Abnormal Lab Results - Last 24 Hours (Table) 05/17/24 05/17/24 05/17/24 Range/Units 04:22 04:22 05:56 WBC 14.40 H (4.50-10.00) X 10*3/uL RBC 2.51 L (4.40-5.60) X 10*6/uL Hgb 6.3 A* (13.0-17.0) g/dL Hct 20.1 L (39.6-50.0) % MCH 25.1 L (27.0-32.0) pg MCHC 31.3 L (32.0-37.0) g/dL RDW 17.3 H (11.5-14.5) % Immature Gran # 0.09 H (0.00-0.04) X 10*3/uL Neutrophils # 12.15 H (1.80-7.70) X 10*3/uL Eosinophils # 0.01 L (0.04-0.35) X 10*3/uL NRBC/100 WBC Diff 0.03 H (0.00-0.01) X 10*3/uL Carbon Dioxide 19.9 L (21.6-31.8) mmol/L Anion Gap 14.10 H (4.00-12.00) mmol/L Glucose 149 H (70-110) mg/dL POC Glucose (mg/dL) 190 H (70-110) mg/dL Calcium 8.4 L (8.7-10.3) mg/dL 05/17/24 05/17/24 05/17/24 Range/Units 11:46 16:50 20:56 WBC (4.50-10.00) X 10*3/uL RBC (4.40-5.60) X 10*6/uL Hgb (13.0-17.0) g/dL Hct (39.6-50.0) % MCH (27.0-32.0) pg MCHC (32.0-37.0) g/dL RDW (11.5-14.5) % Immature Gran # (0.00-0.04) X 10*3/uL Neutrophils # (1.80-7.70) X 10*3/uL Eosinophils # (0.04-0.35) X 10*3/uL NRBC/100 WBC Diff (0.00-0.01) X 10*3/uL Carbon Dioxide (21.6-31.8) mmol/L Anion Gap (4.00-12.00) mmol/L Glucose (70-110) mg/dL POC Glucose (mg/dL) 151 H 208 H 166 H (70-110) mg/dL Calcium (8.7-10.3) mg/dL
--- NOTE | 2024-05-19 00:35 | P.PN ---
Subjective Progress Note Date: 05/18/24 Pleasant 68-year-old male who had outpatient therapy of a left malleolar wound. Wound to the left arredondo as well as the right great toe. There is concern for gangrenous changes in a patient with peripheral arterial disease. Vascular surgery was consulted to evaluate this patient for possible amputation of the right great toe and also surgical debridement of the left ankle wound. ID has been following closely. We are unable to locate the left ankle wound culture at this time and will need surgical cultures taken during debridement. He had positive blood cultures for VRE. Per lab the most recent blood cultures are negative as well as the PICC line tip. 05/03/2024 Patient is seen and evaluated in follow-up with infectious disease following. Patient maintained on antibiotics and will likely transition to oral. Vascular surgery consulted to evaluate for possible amputation of the right great toe and also possible surgical debridement of the left arredondo wound. Patient continues to have some lower extremity swelling more so on the left and reports his pain is 7/10 on the pain scale. Patient with significant weakness working on going to [facility] and would like to go to [facility]. Will await vascular surgery consultation and evaluation to consider discharge planning moving forward. Patient is cu rrently afebrile. Patient will require insurance authorization as well once discharge planning is in progress. 05/04/2024 Patient is evaluated in follow up today on the medical floor. He is scheduled to undergo left above the knee amputation tomorrow. Abdominal ultrasound was completed yesterday with no evidence of obstructive uropathy gallbladder is WNL. Renal function WNL. 05/05/2024 Patient is evaluated in follow-up on the medical floor he is scheduled to undergo left [id number] amputation today as well as right toe debridement and possible amputation. His renal function remains normal. Hemoglobin A1c is 6.8. Blood pressure better at 120/85. 05/06/2024 Patient is postoperative day #1 left above the knee amputation and partial right great toe amputation. He states pain is fairly controlled at this time. He continues on IV zosyn. White count is 12.5. hgb 8.7. Sodium 135. BP 148/72. 05/07/2024 Patient is evaluated today postoperative day #2 left above the knee amputation a nd partial right great toe amputation. He has no acute complaints today. Continues on IV zosyn. White blood cell count 12.5, hgb 8.7, Sodium 135, renal function normal. No plans for discharge until Friday per vascular. 05/08/2024 Patient is currently sitting on side of the bed. Awake alert and oriented x 3. On room air. Complains of pain in his surgical site. Patient is postoperative day 3 left MIKE Denied any complaints of chest pain or shortness of breath. No nausea vomiting abdominal pain or diarrhea. No cough or sputum production. Laboratory data reviewed from yesterday. Blood sugars fairly controlled. Patient is on antibiotics in the form of Zosyn. ID is on board. Patient is complaining of pain at the surgical site. Fairly controlled with medications. 05/09/2024 Patient is sitting on the side of the bed. Awake alert and oriented x 3. No complaints of chest pain. Left AKA amputation site is bandaged. Pain is improved. No complaints of nausea vomiting or abdominal pain. No diarrhea. Patient otherwise having right lower extremity swelling and blister formation. Wound dressing was done. Laboratory data showed WBC 18.8 hemoglobin 7.7 and johnson telets 259 sodium 136 potassium 4.4 chloride 109 bicarb is 23 BUN 13 and creatinine 0.84 and blood sugar 136 and calcium 8.6. Vascular surgery and ID is on board. Patient remains on antibiotics in the form of Zosyn and Zyvox. 05/10/2024 Patient is sitting on side of bed. Advised to elevate right lower extremity. Significant swelling of the right lower extremity with blister formation. Overall pain is controlled. No fever no chills. Laboratory data showed WBC improved to 12.5 hemoglobin 7.8 and platelets 237 RDW 17.4 BUN 9 and creatinine 0.81 and CRP 14.5. Blood sugar is controlled. Patient is on antibiotics Zosyn and Zyvox. Blood pressure is marginal. 05/11/2024 Patient is sitting in the bed. Awake alert and oriented x 3. Right lower extremity swelling is slightly improved. Was given a dose of IV Lasix this morning. No complaints of fever or chills. Pain is controlled. No nausea or vomiting. Tolerating oral diet. Laboratory showed WBC 15.1 hemoglobin 7.6 and platelets 243 sodium 133 potassium 4.3 chloride 106 bicarb is 23 BUN 12 and creatinine 0.82 and blood sugar 172. Patient is on Zosyn, Zyvox and Diflucan was added. 05/12/2024 Patient is lying in the bed. Awake alert and oriented x 3. Pain is controlled. Wound dressing was done yesterday evening. Otherwise laboratory data showed WBC improved to 14.0 hemoglobin 7.9 and platelets 278 sodium 133 potassium 4.1 chloride 104 bicarb is 21 BUN 13 and creatinine 0.93. CRP 18.5. 05/13/2024 Patient is lying in the bed. Awake alert and oriented x 3. Currently on room air. No complaints of fever or chills. Right leg swelling is better. Pain is controlled. Left AKA amputation site is bandaged. General any nausea or vomiting abdominal pain. Tolerating oral diet. Laboratory data showed WBC trending down to 13.0 hemoglobin 7.1 and platelets 251 sodium 133 potassium 3.9 chloride 105 bicarb is 24 BUN 12 and creatinine 0.80 and blood sugar is 156. Patient is on antibiotics in the form of Zosyn. Also on linezolid. ID is on board. 05/14/2024 Patient is retired, oriented x 3. On room air. Status post left AKA and right great toe amputation. Stump wounds are fracture. Patient has been afebrile. Continued on antibiotics Zosyn and Zyvox. Patient is also on Diflucan. Currently awaiting authorization for rehab transfer. 05/15/2024 Patient is sitting on the side of the bed. Awake alert and oriented x 3. Right leg swelling is better. Denied any nausea vomiting abdominal pain or diarrhea. No cough or sputum production. Patient is being current on antibiotics Zosyn, Zyvox and Diflucan. ID is on board. Laboratory data showed WBC 13.8 hemoglobin 7.5 and platelets 250 sodium 134 potassium 4.4 chloride 103 bicarb is 23 BUN 39 creatinine 0.77 blood sugar 148. Calcium 8.6. ID is on board. 05/16/2024 Patient is sitting on the side of the bed. Awake alert and oriented x 3. Bilateral lower extremity pain is controlled. No complaints of nausea or vomiting. Patient has been afebrile. No new laboratory data today. Patient is being continued on antibiotics at home Zyvox. ID is on board. 05/17/2024 Patient is lying in the bed. Awake alert and oriented x 3. No complaints of chest pain or shortness of breath. Pain is fairly controlled. No headache or dizziness or lightheadedness. Denies any hematemesis or melena. Laboratory data showed WBC 14.4 hemoglobin 6.3 and platelets 219 Sodium 137 potassium 4.1 chloride 103 BUN 14.1 and creatinine 1.0 and blood sugar 149. Patient is on antibiotics of Zyvox. ID is on board. Follow-up repeat H&H. 05/18/2024 Patient is sitting on the side of the bed. Awake alert and oriented x 3. Wound dressing was done. Pain is controlled. Tmax 99.7. Patient is tachycardic today. Currently on room air. No headache or dizziness or lightheadedness. Repeat hemoglobin came back at 6.6. Patient is being transfused with 1 unit of PRBC. Otherwise laboratory data showed WBC went up to 19.9 hemoglobin 6.6 platelets 210 sodium 136 potassium 4.2 chloride 102 bicarb is 18.9 BUN 13.5 and creatinine 0.9 and blood sugar 164. Patient is on antibiotics on home Zyvox. Current medications reviewed. Review of Systems Constitutional: Denied any fatigue denied any fever. Cardio vascular: denied any chest pain, palpitations Gastrointestinal: denied any nausea, vomiting, diarrhea Pulmonary: Denied any shortness of breath cough Neurologic denied any new focal deficits All inpatient medications were reviewed and appropriate changes in these medi cations as dictated in the interval history and assessment and plan. PHYSICAL EXAMINATION: GENERAL: The patient is alert and oriented x3, not in any acute distress. Well developed, well nourished. HEENT: Pupils are round and equally reacting to light. EOMI. No scleral icterus. No conjunctival pallor. Normocephalic, atraumatic. No pharyngeal erythema. No thyromegaly. CARDIOVASCULAR: S1 and S2 present. No murmurs, rubs, or gallops. PULMONARY: Chest is clear to auscultation, no wheezing or crackles. ABDOMEN: Soft, nontender, nondistended, normoactive bowel sounds. No palpable organomegaly. MUSCULOSKELETAL: No joint swelling or deformity. EXTREMITIES: Left AKA wound is packed. Right lower extremity edema and foot wound.. NEUROLOGICAL: Gross neurological examination did not reveal any focal deficits. Diffusely weak. SKIN: No rashes. Left AKA site wound. Right great toe wound. Assessment: -VRE bacteremia secondary to PICC line, has been discontinued. -Left malleolar wound underlying osteomyelitis and sepsis, present on admission s/p Left AKA and right great toe partial amputation secondary to gangrenous right great toe. -Episode of VTach/SVT resolved -Chronic heart failure with reduced EF 25-30%. -NSTEMI type 2 -Coronary artery disease with previous CABG and multiple stents -Acute kidney injury, resolved. -Hx of peripheral arterial disease with prior bypass -Diabetes mellitus type 2 -History of stroke 2020 with left sided deficits -Hx hypertension -Hyperlipidemia -Hx of peripheral neuropathy GI prophylaxis DVT prophylaxis Patient would like to be full code. Plan -Continue with pain management with [place]. Will be transfused with 1 unit of PRBC. Monitor H&H. Continue with Protonix IV -Follow-up left malleolar culture -Continues on linezolid. Diflucan was added. Completed course with Zosyn. -Cardiology has signed off at this time -Continue aspirin/brilinta -Blood pressure has been dropping into the 100s systolic. Lisinopril has been decreased with parameters. Discontinued hydralazine. -Monitor renal function and repeat labs in the AM -PT/OT consultation in place as plan is for patient to go to [facility] once discharge planning is in progress. Patient will also require insurance authorization. Plan is for discharge to [facility] Objective - Vital Signs Vital signs: Vital Signs Temp 98.0 F 05/18/24 20:42 Pulse 106 H 05/18/24 20:42 Resp 16 05/18/24 20:42 BP 139/71 05/18/24 20:42 Pulse Ox 100 05/18/24 20:42 FiO2 Intake & Output 05/18/24 05/18/24 05/19/24 06:59 18:59 06:59 Intake Total 120 310 Output Total 125 Balance -125 120 310 Intake: Oral 120 Blood Product 0 310 Rc As-1 Unit 0 310 [id number] Output: Urine 125 Other: Voiding Method Bedside Commode Bedside Commode Urinal Urinal # Voids 1 3 - Labs CBC & Chem 7: 05/18/24 04:51 05/18/24 04:51 Labs: Abnormal Lab Results - Last 24 Hours (Table) 05/18/24 05/18/24 05/18/24 Range/Units 04:51 04:51 05:28 WBC 19.91 H (4.50-10.00) X 10*3/uL RBC 2.59 L (4.40-5.60) X 10*6/uL Hgb 6.6 A* (13.0-17.0) g/dL Hct 20.3 L (39.6-50.0) % MCV 78.4 L (80.0-97.0) FL MCH 25.5 L (27.0-32.0) pg RDW 17.3 H (11.5-14.5) % MPV 12.3 H (9.5-12.2) FL Immature Gran # 0.18 H (0.00-0.04) X 10*3/uL Neutrophils # 17.63 H (1.80-7.70) X 10*3/uL Eosinophils # 0.01 L (0.04-0.35) X 10*3/uL NRBC/100 WBC Diff 0.05 H (0.00-0.01) X 10*3/uL Carbon Dioxide 18.9 L (21.6-31.8) mmol/L Anion Gap 15.10 H (4.00-12.00) mmol/L Glucose 164 H (70-110) mg/dL POC Glucose (mg/dL) 178 H (70-110) mg/dL Calcium 8.4 L (8.7-10.3) mg/dL C-Reactive Protein (0.00-0.80) mg/dL Procalcitonin (0.02-0.50) ng/mL Crossmatch 05/18/24 05/18/24 05/18/24 Range/Units 11:07 14:14 15:58 WBC (4.50-10.00) X 10*3/uL RBC (4.40-5.60) X 10*6/uL Hgb (13.0-17.0) g/dL Hct (39.6-50.0) % MCV (80.0-97.0) FL MCH (27.0-32.0) pg RDW (11.5-14.5) % MPV (9.5-12.2) FL Immature Gran # (0.00-0.04) X 10*3/uL Neutrophils # (1.80-7.70) X 10*3/uL Eosinophils # (0.04-0.35) X 10*3/uL NRBC/100 WBC Diff (0.00-0.01) X 10*3/uL Carbon Dioxide (21.6-31.8) mmol/L Anion Gap (4.00-12.00) mmol/L Glucose (70-110) mg/dL POC Glucose (mg/dL) 196 H (70-110) mg/dL Calcium (8.7-10.3) mg/dL C-Reactive Protein 27.70 H (0.00-0.80) mg/dL Procalcitonin (0.02-0.50) ng/mL Crossmatch See Detail 05/18/24 05/18/24 05/18/24 Range/Units 15:58 16:24 20:47 WBC (4.50-10.00) X 10*3/uL RBC (4.40-5.60) X 10*6/uL Hgb (13.0-17.0) g/dL Hct (39.6-50.0) % MCV (80.0-97.0) FL MCH (27.0-32.0) pg RDW (11.5-14.5) % MPV (9.5-12.2) FL Immature Gran # (0.00-0.04) X 10*3/uL Neutrophils # (1.80-7.70) X 10*3/uL Eosinophils # (0.04-0.35) X 10*3/uL NRBC/100 WBC Diff (0.00-0.01) X 10*3/uL Carbon Dioxide (21.6-31.8) mmol/L Anion Gap (4.00-12.00) mmol/L Glucose (70-110) mg/dL POC Glucose (mg/dL) 174 H 142 H (70-110) mg/dL Calcium (8.7-10.3) mg/dL C-Reactive Protein (0.00-0.80) mg/dL Procalcitonin 0.76 H (0.02-0.50) ng/mL Crossmatch
[2024-05-19 05:44] LABS: Glucose,Whole Blood 141 mg/dL (70-110)
--- NOTE | 2024-05-19 10:21 | XR ---
EXAMINATION TYPE: XR foot complete RT DATE OF EXAM: 04/23/2024 COMPARISON: Right foot radiograph 01/18/2024 HISTORY: Wound right foot TECHNIQUE: Frontal, lateral and oblique images of the right foot are obtained. FINDINGS: No acute fracture or dislocation. There is some subtle questionable osseous erosion involv ing the tip of the first digit with surrounding cortical defect and lucency representing soft tissue gas. The joint spaces appear unremarkable. Vascular sclerosis. Posterior plantar calcaneal enthesophy te. IMPRESSION: 1. No acute fracture or dislocation. 2. Questionable osseous erosion involving the tip of the first digit with surrounding soft tissue ga s at known wound. Raises possibility of osteomyelitis. Consider further evaluation with MRI.
[2024-05-19 10:36] LABS: Basophils # (A) 0.03 X 10*3/uL (0.00-0.10); Basophils % (A) 0.2 %; Eosinophils # (A) 0.03 X 10*3/uL (0.04-0.35); Eosinophils % (A) 0.2 %; HCT 25.9 % (39.6-50.0); HGB 8.5 g/dL (13.0-17.0); Lymphocytes # (A) 1.04 X 10*3/uL (0.90-5.00); Lymphocytes % (A) 6.4 %; MCH 25.8 pg (27.0-32.0); MCHC 32.8 g/dL (32.0-37.0); MCV 78.7 FL (80.0-97.0); Mean Platelet Volume 11.5 FL (9.5-12.2); Monocytes # (A) 0.57 X 10*3/uL (0.20-1.00); Monocytes % (A) 3.5 %; NRBC Per 100 WBC 0.04 X 10*3/uL (0.00-0.01); Neutrophils # (A) 14.53 X 10*3/uL (1.80-7.70); Platelet Count 201 X 10*3/uL (140-440); RBC 3.29 X 10*6/uL (4.40-5.60); RDW 19.1 % (11.5-14.5); WBC 16.31 X 10*3/uL (4.50-10.00)
[2024-05-19 10:45] LABS: BUN/Creat Ratio 14.89 Ratio (12.00-20.00); Blood Urea Nitrogen 13.4 mg/dL (9.0-27.0); Calcium 8.3 mg/dL (8.7-10.3); Carbon Dioxide 21.5 mmol/L (21.6-31.8); Chloride 102 mmol/L (96-109); Glucose 150 mg/dL (70-110); Potassium 3.7 mmol/L (3.5-5.5); Sodium 136 mmol/L (135-145)
[2024-05-19 11:09] LABS: Glucose,Whole Blood 143 mg/dL (70-110)
[2024-05-19] MEDS: AMOXIC-POT CLAV 875-125MG 1 EACH TAB PO SCH (11:57)
[2024-05-19] MEDS: FUROSEMIDE 10 MG/ML 2 ML VIAL IV ONE (13:48)
[2024-05-19 14:52] VITALS: BMI 17.9
[2024-05-19 16:29] LABS: Glucose,Whole Blood 141 mg/dL (70-110)
[2024-05-19 20:49] LABS: Glucose,Whole Blood 191 mg/dL (70-110)
[2024-05-20 05:49] LABS: Glucose,Whole Blood 217 mg/dL (70-110)
[2024-05-20 08:44] LABS: Basophils # (A) 0.02 X 10*3/uL (0.00-0.10); Basophils % (A) 0.1 %; Eosinophils # (A) 0.04 X 10*3/uL (0.04-0.35); Eosinophils % (A) 0.3 %; HCT 24.6 % (39.6-50.0); HGB 8.2 g/dL (13.0-17.0); Lymphocytes # (A) 1.02 X 10*3/uL (0.90-5.00); MCH 26.3 pg (27.0-32.0); MCHC 33.3 g/dL (32.0-37.0); MCV 78.8 FL (80.0-97.0); Mean Platelet Volume 12.8 FL (9.5-12.2); Monocytes # (A) 0.53 X 10*3/uL (0.20-1.00); Monocytes % (A) 3.7 %; NRBC Per 100 WBC 0.05 X 10*3/uL (0.00-0.01); Neutrophils # (A) 12.78 X 10*3/uL (1.80-7.70); Neutrophils % (A) 88.3 %; Platelet Count 192 X 10*3/uL (140-440); RBC 3.12 X 10*6/uL (4.40-5.60); RDW 19.5 % (11.5-14.5); WBC 14.47 X 10*3/uL (4.50-10.00)
--- NOTE | 2024-05-20 08:56 | P.PN ---
Subjective Progress Note Date: 05/19/24 Pleasant 68-year-old male who had outpatient therapy of a left malleolar wound. Wound to the left arredondo as well as the right great toe. There is concern for gangrenous changes in a patient with peripheral arterial disease. Vascular surgery was consulted to evaluate this patient for possible amputation of the right great toe and also surgical debridement of the left ankle wound. ID has been following closely. We are unable to locate the left ankle wound culture at this time and will need surgical cultures taken during debridement. He had positive blood cultures for VRE. Per lab the most recent blood cultures are negative as well as the PICC line tip. 05/03/2024 Patient is seen and evaluated in follow-up with infectious disease following. Patient maintained on antibiotics and will likely transition to oral. Vascular surgery consulted to evaluate for possible amputation of the right great toe and also possible surgical debridement of the left arredondo wound. Patient continues to have some lower extremity swelling more so on the left and reports his pain is 7/10 on the pain scale. Patient with significant weakness working on going to [facility] and would like to go to [facility]. Will await vascular surgery consultation and evaluation to consider discharge planning moving forward. Patient is currently afebrile. Patient will require insurance authorization as well once discharge planning is in progress. 05/04/2024 Patient is evaluated in follow up today on the medical floor. He is scheduled to undergo left above the knee amputation tomorrow. Abdominal ultrasound was completed yesterday with no evidence of obstructive uropathy gallbladder is WNL. Renal function WNL. 05/05/2024 Patient is evaluated in follow-up on the medical floor he is scheduled to undergo left qomjz-qwp-nigs amputation today as well as right toe debridement and possible amputation. His renal function remains normal. Hemoglobin A1c is 6.8. Blood pressure better at 120/85. 05/06/2024 Patient is postoperative day #1 left above the knee amputation and partial right great toe amputation. He states pain is fairly controlled at this time. He continues on IV zosyn. White count is 12.5. hgb 8.7. Sodium 135. BP 148/72. 05/07/2024 Patient is evaluated today postoperative day #2 left above the knee amputation and partial right great toe amputation. He has no acute complaints today. Continues on IV zosyn. White blood cell count 12.5, hgb 8.7, Sodium 135, renal function normal. No plans for discharge until Friday per vascular. 05/08/2024 Patient is currently sitting on side of the bed. Awake alert and oriented x 3. On room air. Complains of pain in his surgical site. Patient is postoperative day 3 left MIKE Denied any complaints of chest pain or shortness of breath. No nausea vomiting abdominal pain or diarrhea. No cough or sputum production. Laboratory data reviewed from yesterday. Blood sugars fairly controlled. Patient is on antibiotics in the form of Zosyn. ID is on board. Patient is complaining of pain at the surgical site. Fairly controlled with medications. 05/09/2024 Patient is sitting on the side of the bed. Awake alert and oriented x 3. No complaints of chest pain. Left AKA amputation site is bandaged. Pain is improved. No complaints of nausea vomiting or abdominal pain. No diarrhea. Patient otherwise having right lower extremity swelling and blister formation. Wound dressing was done. Laboratory data showed WBC 18.8 hemoglobin 7.7 and p latelets 259 sodium 136 potassium 4.4 chloride 109 bicarb is 23 BUN 13 and creatinine 0.84 and blood sugar 136 and calcium 8.6. Vascular surgery and ID is on board. Patient remains on antibiotics in the form of Zosyn and Zyvox. 05/10/2024 Patient is sitting on side of bed. Advised to elevate right lower extremity. Significant swelling of the right lower extremity with blister formation. Overall pain is controlled. No fever no chills. Laboratory data showed WBC improved to 12.5 hemoglobin 7.8 and platelets 237 RDW 17.4 BUN 9 and creatinine 0.81 and CRP 14.5. Blood sugar is controlled. Patient is on antibiotics Zosyn and Zyvox. Blood pressure is marginal. 05/11/2024 Patient is sitting in the bed. Awake alert and oriented x 3. Right lower extremity swelling is slightly improved. Was given a dose of IV Lasix this morning. No complaints of fever or chills. Pain is controlled. No nausea or vomiting. Tolerating oral diet. Laboratory showed WBC 15.1 hemoglobin 7.6 and platelets 243 sodium 133 potassium 4.3 chloride 106 bicarb is 23 BUN 12 and creatinine 0.82 and blood sugar 172. Patient is on Zosyn, Zyvox and Diflucan was added. 05/12/2024 Patient is lying in the bed. Awake alert and oriented x 3. Pain is controlled. Wound dressing was done yesterday evening. Otherwise laboratory data showed WBC improved to 14.0 hemoglobin 7.9 and platelets 278 sodium 133 potassium 4.1 chloride 104 bicarb is 21 BUN 13 and creatinine 0.93. CRP 18.5. 05/13/2024 Patient is lying in the bed. Awake alert and oriented x 3. Currently on room air. No complaints of fever or chills. Right leg swelling is better. Pain is controlled. Left AKA amputation site is bandaged. General any nausea or vomiting abdominal pain. Tolerating oral diet. Laboratory data showed WBC trending down to 13.0 hemoglobin 7.1 and platelets 251 sodium 133 potassium 3.9 chloride 105 bicarb is 24 BUN 12 and creatinine 0.80 and blood sugar is 156. Patient is on antibiotics in the form of Zosyn. Also on linezolid. ID is on board. 05/14/2024 Patient is retired, oriented x 3. On room air. Status post left AKA and right great toe amputation. Stump wounds are fracture. Patient has been afebrile. Continued on antibiotics Zosyn and Zyvox. Patient is also on Diflucan. Currently awaiting authorization for rehab transfer. 05/15/2024 Patient is sitting on the side of the bed. Awake alert and oriented x 3. Right leg swelling is better. Denied any nausea vomiting abdominal pain or diarrhea. No cough or sputum production. Patient is being current on antibiotics Zosyn, Zyvox and Diflucan. ID is on board. Laboratory data showed WBC 13.8 hemoglobin 7.5 and platelets 250 sodium 134 potassium 4.4 chloride 103 bicarb is 23 BUN 39 creatinine 0.77 blood sugar 148. Calcium 8.6. ID is on board. 05/16/2024 Patient is sitting on the side of the bed. Awake alert and oriented x 3. Bilateral lower extremity pain is controlled. No complaints of nausea or vomiting. Patient has been afebrile. No new laboratory data today. Patient is being continued on antibiotics at home Zyvox. ID is on board. 05/17/2024 Patient is lying in the bed. Awake alert and oriented x 3. No complaints of chest pain or shortness of breath. Pain is fairly controlled. No headache or dizziness or lightheadedness. Denies any hematemesis or melena. Laboratory data showed WBC 14.4 hemoglobin 6.3 and platelets 219 Sodium 137 potassium 4.1 chloride 103 BUN 14.1 and creatinine 1.0 and blood sugar 149. Patient is on antibiotics of Zyvox. ID is on board. Follow-up repeat H&H. 05/18/2024 Patient is sitting on the side of the bed. Awake alert and oriented x 3. Wound dressing was done. Pain is controlled. Tmax 99.7. Patient is tachycardic today. Currently on room air. No headache or dizziness or lightheadedness. Repeat hemoglobin came back at 6.6. Patient is being transfused with 1 unit of PRBC. Otherwise laboratory data showed WBC went up to 19.9 hemoglobin 6.6 platelets 210 sodium 136 potassium 4.2 chloride 102 bicarb is 18.9 BUN 13.5 and creatinine 0.9 and blood sugar 164. Patient is on antibiotics on home Zyvox. Current medications reviewed. 05/19/2024 Patient is seen and evaluated in follow-up with ID following maintained on oral antibiotics. Patient received one unit and hgb is improved above 8 with no active bleeding noted. Blood culture ordered and negative thus far as wbc spiked up. Will watch and monitor for 24 hours and repeat labs. If trending down, will discharge [facility] tomorrow. Review of Systems Constitutional: Denied any fatigue denied any fever. Cardio vascular: denied any chest pain, palpitations Gastrointestinal: denied any nausea, vomiting, diarrhea Pulmonary: Denied any shortness of breath cough Neurologic denied any new focal deficits All inpatient medications were reviewed and appropriate changes in these medications as dictated in the interval history and assessment and plan. PHYSICAL EXAMINATION: GENERAL: The patient is alert and oriented x3, not in any acute distress. Well developed, well nourished. HEENT: Pupils are round and equally reacting to light. EOMI. No scleral icterus. No conjunctival pallor. Normocephalic, atraumatic. No pharyngeal erythema. No thyromegaly. CARDIOVASCULAR: S1 and S2 present. No murmurs, rubs, or gallops. PULMONARY: Chest is clear to auscultation, no wheezing or crackles. ABDOMEN: Soft, nontender, nondistended, normoactive bowel sounds. No palpable organomegaly. MUSCULOSKELETAL: No joint swelling or deformity. EXTREMITIES: Left AKA wound is packed. Right lower extremity edema and foot wound.. NEUROLOGICAL: Gross neurological examination did not reveal any focal deficits. Diffusely weak. SKIN: No rashes. Left AKA site wound. Right great toe wound. Assessment: -VRE bacteremia secondary to PICC line, has been discontinued. -Left malleolar wound underlying osteomyelitis and sepsis, present on admission s/p Left AKA and right great toe partial amputation secondary to gangrenous right great toe. -Episode of VTach/SVT resolved -Chronic heart failure with reduced EF 25-30%. -NSTEMI type 2 -Coronary artery disease with previous CABG and multiple stents -Acute kidney injury, resolved. -Hx of peripheral arterial disease with prior bypass -Diabetes mellitus type 2 -History of stroke 2020 with left sided deficits -Hx hypertension -Hyperlipidemia -Hx of peripheral neuropathy GI prophylaxis DVT prophylaxis Patient would like to be full code. Plan -Continue with pain management with [place]. patient was transfused with 1 unit of PRBC. and hgb above 8. no active bleeding noted. Continue with Protonix IV -Follow-up left malleolar culture -Continues on linezolid. Diflucan was added. Completed course with Zosyn. on oral augmentin as well per ID. monitor overnight for any further fevers and repeat labs in am -Cardiology has signed off at this time -Continue aspirin/brilinta -Blood pressure has been dropping into the 100s systolic. Lisinopril has been discontinued. May resume outpatient if bp is improving -Monitor renal function and repeat labs in the AM -PT/OT consultation in place as plan is for patient to go to [facility] once discharged . Has received auth. Possible dc in 24 hours. The impression and plan of care has been dictated by Quynh Berg, Nurse Practitioner as directed. Dr. Rebecca MD I have performed a history and examination and MDM of this patient, discussed the same with the dictator, and agree with the dictator's assessment and plan as written ,documented as a scribe. Based on total visit time, I have performed more than 50% of the visit. Objective - Vital Signs Vital signs: Vital Signs Temp 97.7 F 05/19/24 07:26 Pulse 96 05/19/24 07:26 Resp 16 05/19/24 07:26 BP 92/60 05/19/24 07:26 Pulse Ox 100 05/19/24 07:26 FiO2 Intake & Output 05/18/24 05/19/24 05/19/24 18:59 06:59 18:59 Intake Total 120 310 120 Output Total 250 Balance 120 60 120 Intake: Oral 120 120 Blood Product 0 310 Rc As-1 Unit 0 310 [id number] Output: Urine 250 Other: Voiding Method Bedside Commode Bedside Commode Bedside Commode Urinal Urinal Urinal # Voids 3 1 - Labs CBC & Chem 7: 05/20/24 05:18 05/19/24 06:56 Labs: Abnormal Lab Results - Last 24 Hours (Table) 05/18/24 05/18/24 05/18/24 Range/Units 11:07 14:14 15:58 POC Glucose (mg/dL) 196 H (70-110) mg/dL C-Reactive Protein 27.70 H (0.00-0.80) mg/dL Procalcitonin (0.02-0.50) ng/mL Crossmatch See Detail 05/18/24 05/18/24 05/18/24 Range/Units 15:58 16:24 20:47 POC Glucose (mg/dL) 174 H 142 H (70-110) mg/dL C-Reactive Protein (0.00-0.80) mg/dL Procalcitonin 0.76 H (0.02-0.50) ng/mL Crossmatch 05/19/24 Range/Units 05:43 POC Glucose (mg/dL) 141 H (70-110) mg/dL C-Reactive Protein (0.00-0.80) mg/dL Procalcitonin (0.02-0.50) ng/mL Crossmatch
--- NOTE | 2024-05-20 08:59 | XR ---
Patient Michael Woodward ID [id number] Order # EXAMINATION TYPE: XR chest 1V DATE OF EXAM: 04/23/2024 COMPARISON: No comparison available on downtime PACS. INDICATION: Fall, mental status change TECHNIQUE: Single frontal view of the chest is obtained. FINDINGS: The heart size is prominent. The pulmonary vasculature is normal. The lungs are clear. There is elevation of the right diaphragm. IMPRESSION: 1. No acute pulmonary process.
--- NOTE | 2024-05-20 09:00 | XR ---
Patient Michael Woodward ID [id number] Order # EXAMINATION TYPE: XR pelvis AP view DATE OF EXAM: 04/23/2024 COMPARISON: No pertinent comparisons available HISTORY: Fall TECHNIQUE: AP pelvis FINDINGS: Femoral heads articulate with the acetabulum. No acute fracture or dislocation evident. Sym physis pubis and sacroiliac joints are normal. Iliac stents are evident. Vascular calcification is no denisse Nonspecific bowel gas is present. IMPRESSION: 1. No acute posttraumatic changes AP pelvis
[2024-05-20 09:09] VITALS: BP 153/75; PULSE 121
[2024-05-20] MEDS: HYDROcodone/APAP 5-325MG 1 EACH TAB PO STA (11:30)
[2024-05-20 11:51] LABS: Glucose,Whole Blood 166 mg/dL (70-110)
[2024-05-20] MEDS: ACETAMINOPHEN TAB 500 MG TAB PO STA (12:52)
[2024-05-20 12:53] VITALS: RESP 18; TEMP 98.1
--- NOTE | 2024-05-20 13:17 | P.PN ---
Subjective Progress Note Date: 05/19/24 Principal diagnosis: Reason for follow-up is VRE bacteremia and left lateral malleolar osteomyelitis Patient is a 68-year-old male with multiple comorbidities he did have a left lateral malleolar osteomyelitis diagnosed back in March culture positive for E. coli Enterobacter for which the patient was treated with Zosyn patient subsequently [facility] and was not clear he was given antibiotics at home presenting to the hospital with decreased level of responsiveness has been diagnosed with VRE bacteremia likely related to the PICC line which has been dis continued and did have extensive wound to the left lateral malleolus as well as left big toe, patient is status post Left above-knee amputation and Right lower extremity great toe partial amputation completed by vascular surgery on 05/05/2024. On today's evaluation that is 05/19/2024, Patient is afebrile this morning patient denies having any chest pain shortness of breath or cough, the patient is breathing comfortably and currently on room air, patient denies any abdominal pain no diarrhea no nausea no vomiting denies any worsening pain to the lower extremity. Patient white count is 16.3 Hemoglobin is 8.5, creatinine 0.9 Objective - Vital Signs Vital signs: Vital Signs Temp 97.7 F 05/19/24 07:26 Pulse 96 05/19/24 07:26 Resp 16 05/19/24 07:26 BP 92/60 05/19/24 07:26 Pulse Ox 100 05/19/24 07:26 FiO2 Intake & Output 05/18/24 05/19/24 05/19/24 18:59 06:59 18:59 Intake Total 120 310 120 Output Total 250 Balance 120 60 120 Intake: Oral 120 120 Blood Product 0 310 Rc As-1 Unit 0 310 [id number] Output: Urine 250 Other: Voiding Method Bedside Commode Bedside Commode Bedside Commode Urinal Urinal Urinal # Voids 3 1 - Exam GENERAL DESCRIPTION: An elderly male lying in bed in no distress RESPIRATORY SYSTEM: Unlabored breathing , decreased breath sounds at bases HEART: S1 S2 regular rate and rhythm , ABDOMEN: Soft , no tenderness, EXTREMITIES: Left AKA stump is currently dressed left big toe partial amputation with a wound on the dorsum with no slough tissue - Labs CBC & Chem 7: 05/20/24 05:18 05/19/24 06:56 Labs: Abnormal Lab Results - Last 24 Hours (Table) 05/18/24 05/18/24 05/18/24 Range/Units 11:07 14:14 15:58 WBC (4.50-10.00) X 10*3/uL RBC (4.40-5.60) X 10*6/uL Hgb (13.0-17.0) g/dL Hct (39.6-50.0) % MCV (80.0-97.0) FL MCH (27.0-32.0) pg RDW (11.5-14.5) % Immature Gran # (0.00-0.04) X 10*3/uL Neutrophils # (1.80-7.70) X 10*3/uL Eosinophils # (0.04-0.35) X 10*3/uL NRBC/100 WBC Diff (0.00-0.01) X 10*3/uL Carbon Dioxide (21.6-31.8) mmol/L Anion Gap (4.00-12.00) mmol/L Glucose (70-110) mg/dL POC Glucose (mg/dL) 196 H (70-110) mg/dL Calcium (8.7-10.3) mg/dL C-Reactive Protein 27.70 H (0.00-0.80) mg/dL Procalcitonin (0.02-0.50) ng/mL Crossmatch See Detail 05/18/24 05/18/24 05/18/24 Range/Units 15:58 16:24 20:47 WBC (4.50-10.00) X 10*3/uL RBC (4.40-5.60) X 10*6/uL Hgb (13.0-17.0) g/dL Hct (39.6-50.0) % MCV (80.0-97.0) FL MCH (27.0-32.0) pg RDW (11.5-14.5) % Immature Gran # (0.00-0.04) X 10*3/uL Neutrophils # (1.80-7.70) X 10*3/uL Eosinophils # (0.04-0.35) X 10*3/uL NRBC/100 WBC Diff (0.00-0.01) X 10*3/uL Carbon Dioxide (21.6-31.8) mmol/L Anion Gap (4.00-12.00) mmol/L Glucose (70-110) mg/dL POC Glucose (mg/dL) 174 H 142 H (70-110) mg/dL Calcium (8.7-10.3) mg/dL C-Reactive Protein (0.00-0.80) mg/dL Procalcitonin 0.76 H (0.02-0.50) ng/mL Crossmatch 05/19/24 05/19/24 05/19/24 Range/Units 05:43 06:56 06:56 WBC 16.31 H (4.50-10.00) X 10*3/uL RBC 3.29 L (4.40-5.60) X 10*6/uL Hgb 8.5 L (13.0-17.0) g/dL Hct 25.9 L (39.6-50.0) % MCV 78.7 L (80.0-97.0) FL MCH 25.8 L (27.0-32.0) pg RDW 19.1 H (11.5-14.5) % Immature Gran # 0.11 H (0.00-0.04) X 10*3/uL Neutrophils # 14.53 H (1.80-7.70) X 10*3/uL Eosinophils # 0.03 L (0.04-0.35) X 10*3/uL NRBC/100 WBC Diff 0.04 H (0.00-0.01) X 10*3/uL Carbon Dioxide 21.5 L (21.6-31.8) mmol/L Anion Gap 12.50 H (4.00-12.00) mmol/L Glucose 150 H (70-110) mg/dL POC Glucose (mg/dL) 141 H (70-110) mg/dL Calcium 8.3 L (8.7-10.3) mg/dL C-Reactive Protein (0.00-0.80) mg/dL Procalcitonin (0.02-0.50) ng/mL Crossmatch Assessment and Plan (1) VRE bacteremia Current Visit: Yes Status: Acute Code(s): R78.81 - BACTEREMIA; B95.2 - ENTEROCOCCUS THE CAUSE OF DISEASES CLASSIFIED ELSEWHERE; Z16.21 - RESISTANCE TO VANCOMYCIN SNOMED Code(s): 2501528848 (2) Foot osteomyelitis, left Current Visit: Yes Status: Acute Code(s): M86.9 - OSTEOMYELITIS, UNSPECIFIED SNOMED Code(s): 3207274032716914 Plan: 1patient with VRE bacteremia source likely PICC line which has been discontinued, patient received about 12 days of oral Zyvox to continue for about a week on discharge 2patient did have a stage III right gluteal wound local wound care with Med ihoney followed by moist dressing keep the area of the pressure 3-patient is status post left [id number] amputation and partial amputation of the right big toe 4-patient remains to be afebrile, However the patient was noticed to have significant worsening of his white count, did have elevated procalcitonin will add oral Augmentin repeat a CBC tomorrow if trending down we will be able to go to rehab on oral Augmentin discussed with the SOFT MUD MOLDER for admitting team will hold discharge today Dictation was produced using [employer] dictation software. please excuse any grammatical, word or spelling errors. Time with Patient: Less than 30
--- NOTE | 2024-05-20 13:17 | P.PN ---
Subjective Progress Note Date: 05/20/24 Principal diagnosis: Reason for follow-up is VRE bacteremia and left lateral malleolar osteomyelitis Patient is a 68-year-old male with multiple comorbidities he did have a left lateral malleolar osteomyelitis diagnosed back in March culture positive for E. coli Enterobacter for which the patient was treated with Zosyn patient subsequently left the long term and was not clear he was given antibiotics at home presenting to the hospital with decreased level of responsiveness has been diagnosed with VRE bacteremia likely related to the PICC line which has been dis continued and did have extensive wound to the left lateral malleolus as well as left big toe, patient is status post Left above-knee amputation and Right lower extremity great toe partial amputation completed by vascular surgery on 05/05/2024. On today's evaluation that is 05/20/2024,the patient denies any fever or any chills, patient is breathing comfortably on room air, the patient denies chest pain shortness of breath and no significant cough, patient denies abdominal pain, no nausea vomiting or diarrhea. She mention feeling better wants to go to rehab. Patient white count is down to 14.47 Objective - Vital Signs Vital signs: Vital Signs Temp 98.1 F 05/20/24 07:17 Pulse 121 H 05/20/24 09:09 Resp 18 05/20/24 07:17 BP 153/75 05/20/24 09:09 Pulse Ox 99 05/20/24 07:17 FiO2 Intake & Output 05/19/24 05/20/24 05/20/24 18:59 06:59 18:59 Intake Total 660 Output Total 300 Balance 360 Weight 59.8 kg Intake: Oral 660 Output: Urine 300 Other: Voiding Method Bedside Commode Bedside Commode Urinal Urinal Urinal # Voids 2 1 - Exam GENERAL DESCRIPTION: An elderly male lying in bed in no distress RESPIRATORY SYSTEM: Unlabored breathing , decreased breath sounds at bases HEART: S1 S2 regular rate and rhythm , ABDOMEN: Soft , no tenderness, EXTREMITIES: Left AKA stump is currently dressed left big toe partial amputation with a wound on the dorsum with no slough tissue - Labs CBC & Chem 7: 05/20/24 05:18 05/19/24 06:56 Labs: Abnormal Lab Results - Last 24 Hours (Table) 05/19/24 05/19/24 05/20/24 Range/Units 16:27 20:47 05:18 WBC 14.47 H (4.50-10.00) X 10*3/uL RBC 3.12 L (4.40-5.60) X 10*6/uL Hgb 8.2 L (13.0-17.0) g/dL Hct 24.6 L (39.6-50.0) % MCV 78.8 L (80.0-97.0) FL MCH 26.3 L (27.0-32.0) pg RDW 19.5 H (11.5-14.5) % MPV 12.8 H (9.5-12.2) FL Immature Gran # 0.08 H (0.00-0.04) X 10*3/uL Neutrophils # 12.78 H (1.80-7.70) X 10*3/uL NRBC/100 WBC Diff 0.05 H (0.00-0.01) X 10*3/uL POC Glucose (mg/dL) 141 H 191 H (70-110) mg/dL 05/20/24 05/20/24 Range/Units 05:47 11:49 WBC (4.50-10.00) X 10*3/uL RBC (4.40-5.60) X 10*6/uL Hgb (13.0-17.0) g/dL Hct (39.6-50.0) % MCV (80.0-97.0) FL MCH (27.0-32.0) pg RDW (11.5-14.5) % MPV (9.5-12.2) FL Immature Gran # (0.00-0.04) X 10*3/uL Neutrophils # (1.80-7.70) X 10*3/uL NRBC/100 WBC Diff (0.00-0.01) X 10*3/uL POC Glucose (mg/dL) 217 H 166 H (70-110) mg/dL Microbiology - Last 24 Hours (Table) 05/18/24 16:03 Blood Culture - Preliminary Blood Assessment and Plan (1) VRE bacteremia Current Visit: Yes Status: Acute Code(s): R78.81 - BACTEREMIA; B95.2 - ENTEROCOCCUS THE CAUSE OF DISEASES CLASSIFIED ELSEWHERE; Z16.21 - RESISTANCE TO VANCOMYCIN SNOMED Code(s): 7529386128 (2) Foot osteomyelitis, left Current Visit: Yes Status: Acute Code(s): M86.9 - OSTEOMYELITIS, UNSPECIFIED SNOMED Code(s): 6739129425050242 Plan: 1patient with VRE bacteremia source likely PICC line which has been discontinued, patient received more than 2 weeks of oral Zyvox from the negative blood culture no need for Zyvox on discharge discussed with the GEM EXPERT for admitting team 2patient did have a stage III right gluteal wound local wound care with Medihoney followed by moist dressing keep the area of the pressure 3-patient is status post left [id number] amputation and partial amputation of the right big toe 4-patient remains to be afebrile, patient white count is trending down with addition of oral Augmentin continued for about 10 days on discharge Dictation was produced using [employer] dictation software. please excuse any grammatical, word or spelling errors. Time with Patient: Less than 30
--- NOTE | 2024-05-20 13:48 | P.DS ---
Providers Date of admission: 04/23/24 19:18 Expected date of discharge: 05/20/24 Attending physician: Tomi Shaw MD Consults: 04/23/24 19:19 Consult Physician Routine Consulting Provider: Santos Mackay Consult Reason/Comments: elevated troponin Do you want consulting provider notified?: Already Contacted Consult Physician Routine Consulting Provider: Beatriz Rodriges Consult Reason/Comments: sepsis Do you want consulting provider notified?: Already Contacted Primary care physician: Physician Nonstaff Hospital Course: Final diagnosis -VRE bacteremia secondary to PICC line, has been discontinued. -Left malleolar wound underlying osteomyelitis and sepsis, present on admission s/p Left AKA and right great toe partial amputation secondary to gangrenous right great toe. -Episode of VTach/SVT resolved -Chronic heart failure with reduced EF 25-30%. -NSTEMI type 2 -Coronary artery disease with previous CABG and multiple stents -Acute kidney injury, resolved. -Hx of peripheral arterial disease with prior bypass -Chronic kidney disease -Anemia, likely chronic -Diabetes mellitus type 2 -History of stroke 2020 with left sided deficits -Hx hypertension -Hyperlipidemia -Hx of peripheral neuropathy GI prophylaxis DVT prophylaxis with heparin subcu Patient is full code Hospital course Pleasant 68-year-old male who had outpatient therapy of a left malleolar wound. Wound to the left arredondo as well as the right great toe. There is concern for gangrenous changes in a patient with peripheral arterial disease. Vascular surgery was consulted to evaluate this patient for possible amputation of the right great toe and also surgical debridement of the left ankle wound. ID has been following closely. We are unable to locate the left ankle wound culture at this time and will need surgical cultures taken during debridement. He had positive blood cultures for VRE. Per lab the most recent blood cultures are negative as well as the PICC line tip. 05/03/2024 Patient is seen and evaluated in follow-up with infectious disease following. Patient maintained on antibiotics and will likely transition to oral. Vascular surgery consulted to evaluate for possible amputation of the right great toe and also possible surgical debridement of the left arredondo wound. Patient continues to have some lower extremity swelling more so on the left and reports his pain is 7/10 on the pain scale. Patient with significant weakness working on going to [facility] and would like to go to [facility]. Will await vascular surgery consultation and evaluation to consider discharge planning moving forward. Patient is currently afebrile. Patient will require insurance authorization as well once discharge planning is in progress. 05/04/2024 Patient is evaluated in follow up today on the medical floor. He is scheduled to undergo left above the knee amputation tomorrow. Abdominal ultrasound was completed yesterday with no evidence of obstructive uropathy gallbladder is WNL. Renal function WNL. 05/05/2024 Patient is evaluated in follow-up on the medical floor he is scheduled to undergo left [id number] amputation today as well as right toe debridement and possible amputation. His renal function remains normal. Hemoglobin A1c is 6.8. Blood pressure better at 120/85. 05/06/2024 Patient is postoperative day #1 left above the knee amputation and partial right great toe amputation. He states pain is fairly controlled at this time. He continues on IV zosyn. White count is 12.5. hgb 8.7. Sodium 135. BP 148/72. 05/07/2024 Patient is evaluated today postoperative day #2 left above the knee amputation and partial right great toe amputation. He has no acute complaints today. Continues on IV zosyn. White blood cell count 12.5, hgb 8.7, Sodium 135, renal function normal. No plans for discharge until Friday per vascular. 05/20/2024 Patient is seen and evaluated in follow-up today did have a hemoglobin of 6.5 and was given a unit of PRBC and hemoglobin is improved at 8.2. White count remains mildly elevated at 14.47 although trending down and patient does not appear to have an active infection. Patient will continue on oral antibiotics in the form of Augmentin as well as Diflucan to complete the course per ID recommendations. Recommend follow-up labs in the next few days to monitor kidney functions as well as hemoglobin. Patient is a diabetic and recommend to continue with Accu-Cheks before meals and at bedtime along with consistent carb diet and insulin regimen. Patient has been cleared by consultations for discharge and accepted at [facility] and has received insurance authorization. Please refer to other consultation notes for further HPI. Patient's blood pressures were on the lower side and normotensive and lisinopril is being held. May need to resume lisinopril once blood pressures are improving PHYSICAL EXAMINATION: GENERAL: The patient is alert and oriented x3, not in any acute distress. Well developed, well nourished. Elderly appearing HEENT: Pupils are round and equally reacting to light. EOMI. No scleral icterus. No conjunctival pallor. Normocephalic, atraumatic. No pharyngeal erythema. No thyromegaly. CARDIOVASCULAR: S1 and S2 present. No murmurs, rubs, or gallops. PULMONARY: Chest is clear to auscultation, no wheezing or crackles. ABDOMEN: Soft, nontender, nondistended, normoactive bowel sounds. No palpable organomegaly. MUSCULOSKELETAL: No joint swelling or deformity. EXTREMITIES: Left AKA wound jeffrey with well-approximated incision with no redness or drainage noted. Right lower extremity edema and foot wound at great amputation site... NEUROLOGICAL: Gross neurological examination did not reveal any focal deficits. Diffusely weak. SKIN: No rashes. Right great toe wound. The impression and plan of care has been dictated by Quynh Berg, Nurse Practitioner as directed. Dr. Rebecca MD I have performed a history and examination and MDM of this patient, discussed the same with the dictator, and agree with the dictator's assessment and plan as written ,documented as a scribe. Based on total visit time, I have performed more than 50% of the visit. Patient Condition at Discharge: Fair Plan - Discharge Summary New Discharge Prescriptions: New Amoxic-Pot Clav 875-125Mg [Augmentin 875-125] 1 each PO Q12HR 10 Days #20 tab Heparin Sodium,Porcine (1 ml) [Heparin Sodium] 5,000 unit SQ Q12HR each INSULIN ASPART (NovoLOG) [NovoLOG (formulary)] 0 unit SQ ACHS each HYDROcodone/APAP 5-325MG [[place] 5-325] 1 each PO Q6HR PRN 3 Days #12 tab PRN Reason: Pain Fluconazole [Diflucan] 100 mg PO DAILY #7 tab Pantoprazole [Protonix] 40 mg PO AC-BRKFST #30 tab Docusate [Colace] 100 mg PO BID cap Melatonin 5 mg PO HS tab Continue Tamsulosin [Flomax] 0.4 mg PO BID Cholecalciferol [Vitamin D3 (25 Mcg = 1000 Iu)] 25 mcg PO DAILY Isosorbide Mononitrate ER [Imdur] 60 mg PO DAILY #30 tab Atorvastatin [Lipitor] 80 mg PO HS #90 tab Metoprolol Succinate (ER) [Toprol XL] 50 mg PO HS Gabapentin [Neurontin] 600 mg PO TID Ticagrelor [Brilinta] 90 mg PO BID #60 tab Aspirin EC [Ecotrin Low Dose] 81 mg PO DAILY Cyanocobalamin (Vitamin B-12) [Vitamin B-12] 1,000 mcg PO DAILY Discontinued lisinopriL [Zestril] 10 mg PO BID #0 hydrALAZINE HCL [Apresoline] 50 mg PO TID #90 tab HYDROcodone/APAP 5-325MG [[place] 5-325] 1 each PO Q4HR PRN #18 tab PRN Reason: Moderate Pain (Scale 4 To 6) cefTRIAXone [Rocephin] 2,000 mg IVP Q24HR #40 each DULoxetine HCL [Cymbalta] 120 mg PO DAILY ARIPiprazole 5 mg PO DAILY Discharge Medication List Ticagrelor [Brilinta] 90 mg PO BID #60 tab 05/07/21 [Rx] Tamsulosin [Flomax] 0.4 mg PO BID 07/03/21 [History] Cholecalciferol [Vitamin D3 (25 Mcg = 1000 Iu)] 25 mcg PO DAILY 10/22/21 [History] Atorvastatin [Lipitor] 80 mg PO HS #90 tab 04/09/22 [Rx] Isosorbide Mononitrate ER [Imdur] 60 mg PO DAILY #30 tab 04/09/22 [Rx] Metoprolol Succinate (ER) [Toprol XL] 50 mg PO HS 01/22/24 [History] Aspirin EC [Ecotrin Low Dose] 81 mg PO DAILY 03/11/24 [History] Cyanocobalamin (Vitamin B-12) [Vitamin B-12] 1,000 mcg PO DAILY 03/11/24 [History] Gabapentin [Neurontin] 600 mg PO TID 03/11/24 [History] Fluconazole [Diflucan] 100 mg PO DAILY #7 tab 05/14/24 [Rx] HYDROcodone/APAP 5-325MG [[place] 5-325] 1 each PO Q6HR PRN 3 Days #12 tab 05/14/24 [Rx] Pantoprazole [Protonix] 40 mg PO AC-BRKFST #30 tab 05/14/24 [Rx] Amoxic-Pot Clav 875-125Mg [Augmentin 875-125] 1 each PO Q12HR 10 Days #20 tab 05/20/24 [Rx] Docusate [Colace] 100 mg PO BID cap 05/20/24 [Rx] Heparin Sodium,Porcine (1 ml) [Heparin Sodium] 5,000 unit SQ Q12HR each 05/20/24 [Rx] INSULIN ASPART (NovoLOG) [NovoLOG (formulary)] 0 unit SQ ACHS each 05/20/24 [Rx] Melatonin 5 mg PO HS tab 05/20/24 [Rx] Follow up Appointment(s)/Referral(s): Maggi Velez DO [STAFF PHYSICIAN] - 2 Weeks Brit Rivas MD [STAFF PHYSICIAN] - 1 Week [facility] [employer] [place], [NON-STAFF] - As Needed Activity/Diet/Wound Care/Special Instructions: Patient is going to [facility] [employer] [facility] Activity as tolerated Continue with oral Diflucan daily for 7 days Continue with oral Augmentin twice daily for the next 10 days Continue local wound care by applying Medihoney to the right gluteal wound followed by a moist dressing and change daily and more frequently if becoming soiled, apply silver covering the open skin and then wrapped with Kerlix on the right foot Continue consistent carb diet Continue with Accu-Cheks before meals and at bedtime and may use sliding scale as needed NovoLog sliding scale 0-150 equals 0 units 151-200 equals 2 units 201-250 equals 4 units 251-300 equals 6 units 301-350 equals 8 units 351-400 equals 10 units Please notify provider if blood sugar is 400 or above Follow-up with vascular surgery outpatient Discharge Disposition: TRANSFER TO SNF/ECF
--- NOTE | 2024-06-04 11:55 | PN ---
PROGRESS NOTE DATE OF SERVICE: 04/25/2024 REASON FOR FOLLOWUP: 1. Left lateral malleolar osteomyelitis. 2. Bacteremia, likely PICC line infection. INTERVAL HISTORY: The patient is afebrile. The patient is breathing comfortably. Denies having any chest pain, shortness of breath, or cough. No nausea. No vomiting. No abdominal pain or worsening pain to the left lateral malleolar wound area. The patient's blood cultures came back positive with VRE. PHYSICAL EXAMINATION: VITAL SIGNS: Blood pressure 165/90 with a pulse of 99, and temperature 98.5. GENERAL DESCRIPTION: This is an elderly male, lying in bed, in no distress. RESPIRATORY SYSTEM: Unlabored breathing. Clear to auscultation anteriorly. HEART: S1 and S2. Regular rate and rhythm. ABDOMEN: Soft. No tenderness. EXTREMITIES: Left lateral malleolar wound is currently dressed. LABS: Blood cultures and peripheral as well as from the PICC line came back with VRE. He has white count of 19.6. Creatinine 0.91. DIAGNOSTIC IMPRESSION AND PLAN: 1. The patient with chronic nonhealing wound to the left lateral malleolar area concerning for underlying osteomyelitis. We are waiting for the culture to finalize. Continue with Zosyn. 2. The patient with positive blood culture with VRE, concerning for the PICC line infection. Nursing staff advised to remove the PICC line, so I am waiting for the culture. Discontinue vancomycin. Start the patient on daptomycin 6 mg/kg daily. MMODL / IJN: [id number] /
--- NOTE | 2024-06-04 12:13 | PN ---
PROGRESS NOTE LOCATION: 372. REASON FOR FOLLOWUP: 1. Left lateral malleolar wound, underlying osteomyelitis. 2. PICC line infection with VRE bacteremia. INTERVAL HISTORY: The patient is afebrile. The patient is breathing comfortably. No chest pain. No shortness of breath or cough. No abdominal pain or any worsening pain to the left lateral malleolar wound area. PHYSICAL EXAMINATION: VITAL SIGNS: Blood pressure 100/60 with a pulse of 80, temperature 98.2. GENERAL DESCRIPTION: This is an elderly male, lying in bed, in no distress. RESPIRATORY SYSTEM: Unlabored breathing. Clear to auscultation anteriorly. HEART: S1 and S2. Regular rate and rhythm. ABDOMEN: Soft. No tenderness. EXTREMITIES: Left foot wound is currently dressed. LABORATORY DATA: Creatinine 0.91. White count 14.6. Cultures are currently pending. DIAGNOSTIC IMPRESSION AND PLAN: 1. The patient with left lateral malleolar wound, underlying osteomyelitis. Cultures are currently pending. The patient to continue Zosyn. 2. The patient with vancomycin-resistant enterococcus bacteremia, source likely peripherally inserted central catheter line which has been discontinued. Waiting for repeat cultures. Continue with daptomycin and monitor clinical course closely. MMODL / IJN: [id number] /
--- NOTE | 2024-06-04 12:16 | PN ---
PROGRESS NOTE DATE OF SERVICE: 04/27/2024 LOCATION: 372. REASON FOR FOLLOWUP: 1. Left lateral malleolar wound and osteomyelitis. 2. VRE bacteremia, PICC line infection. INTERVAL HISTORY: Patient is afebrile. The patient is more awake, alert. He is breathing comfortably. Denies any chest pain, shortness of breath, or cough. No abdominal pain or any worsening pain to the left lateral malleolar wound area. PHYSICAL EXAMINATION: VITAL SIGNS: Blood pressure 133/70 with a pulse of 80, temperature 97.6, 92% on room air. GENERAL: The patient is an elderly male up in the chair, in no distress. RESPIRATORY: Unlabored breathing. Clear to auscultation anteriorly. HEART: S1, S2. Regular rate and rhythm. ABDOMEN: Soft. No tenderness. EXTREMITIES: Left lateral malleolar wound is currently dressed. LABORATORY DATA: Creatinine is 1.0. White count of 18.40. Repeat cultures currently pending. DIAGNOSTIC IMPRESSION AND PLAN: 1. Patient with left lateral malleolar wound, concerning for underlying osteomyelitis. We are currently waiting for the culture obtained from that wound. Continue with Zosyn. 2. Patient with VRE bacteremia, concerning for PICC line infection, has been discontinued. Currently waiting for repeat cultures and catheter culture. Continue with daptomycin. He will likely need a PICC line and antibiotic on discharge. This was discussed with the heel caser for placement. MMODL / IJN: [id number] /
--- NOTE | 2024-06-04 12:16 | PN ---
PROGRESS NOTE DATE OF SERVICE: 05/01/2024 LOCATION: 372. REASON FOR FOLLOWUP: 1. VRE bacteremia secondary to PICC line infection. 2. Left lateral malleolar wound and osteomyelitis. INTERVAL HISTORY: Patient is afebrile. He is breathing comfortably on room air. No chest pain, shortness of breath, or cough. No nausea, no vomiting. No abdominal pain or any worsening pain to the left leg wound area. PHYSICAL EXAMINATION: VITAL SIGNS: Blood pressure 97/55, pulse of 74, temperature 97.7. GENERAL DESCRIPTION: This is an elderly male, up in the bed, in no distress. RESPIRATORY SYSTEM: Unlabored breathing. Clear to auscultation anteriorly. HEART: S1, S2. Regular rate and rhythm. ABDOMEN: Soft, no tenderness. EXTREMITIES: Left foot wound is currently dressed. LABORATORY DATA: White count 7.95, creatinine 0.87. Blood culture repeat and local cultures currently pending. DIAGNOSTIC IMPRESSION AND PLAN: 1. Patient with VRE bacteremia secondary PICC line which has been discontinued. Repeat cultures currently pending. Continue with Zyvox. 2. Left lateral malleolar wound and underlying osteomyelitis. Await surgical debridement and deep culture. Covered with Zosyn. Questions and concerns were answered. MMODL / IJN: [id number] /
--- NOTE | 2024-06-04 12:16 | PN ---
PROGRESS NOTE DATE OF SERVICE: 04/30/2024 LOCATION: 372. REASON FOR FOLLOWUP: 1. VRE bacteremia secondary to an infection. 2. Left lateral malleolar wound osteomyelitis and left big toe gangrene. INTERVAL HISTORY: The patient is afebrile. He is breathing comfortably. No chest pain, shortness of breath, or cough. No nausea, no vomiting. No abdominal pain. No diarrhea. PHYSICAL EXAMINATION: VITAL SIGNS: Blood pressure 95/76, pulse of 94, temperature 97.6. He is 99% on room air. GENERAL DESCRIPTION: This is an elderly male, up in the bed, in no distress. RESPIRATORY SYSTEM: Unlabored breathing. Clear to auscultation anteriorly. HEART: S1, S2. Regular rate and rhythm. ABDOMEN: Soft, no tenderness. EXTREMITIES: No edema in the feet. LABORATORY DATA: White count is 7.95, creatinine 0.57. Repeat cultures currently pending. DIAGNOSTIC IMPRESSION AND PLAN: 1. The patient with VRE bacteremia, source likely PICC line has been discontinued. Currently waiting for repeat blood culture, which apparently has been negative so far. The patient on oral Zyvox because of resistant to daptomycin. 2. The patient with left lateral malleolar wound, underlying osteomyelitis, and left big toe gangrene. Vascular Surgery has been consulted for debridement and deep cultures. Continue Zosyn. Prognosis is guarded. MMODL / IJN: [id number] /
--- NOTE | 2024-06-04 12:16 | HP ---
HISTORY AND PHYSICAL LOCATION: 370. REASON FOR FOLLOWUP: 1. VRE bacteremia secondary to PICC line infection. 2. Left lateral malleolar wound and underlying osteomyelitis. INTERVAL HISTORY: Patient is afebrile, has been breathing comfortably. Patient complaining of his pain medication being cut. Denies any chest pain, shortness of breath, or cough. No abdominal pain or any diarrhea. REVIEW OF SYSTEMS: Positive points have been mentioned in HPI. PAST MEDICAL HISTORY: Has been reviewed. PAST SURGICAL HISTORY: Has been reviewed. MEDICATION: Reviewed. PHYSICAL EXAMINATION: VITAL SIGNS: Blood pressure 122/82 with a pulse of 95, temperature 97.5. GENERAL DESCRIPTION: This is an elderly male, up in the bed, in no distress. RESPIRATORY SYSTEM: Unlabored breathing. Clear to auscultation anteriorly. HEART: S1, S2. Regular rate and rhythm. ABDOMEN: Soft, no tenderness. Left lateral malleolar wound is currently dressed. No drainage on the dressing. LABORATORY DATA: Creatinine 0.87. White count 15.73. Blood culture has been received, which is showing VRE that was sensitive only to Zyvox. I did call the micro lab to confirm and the pathogen is resistant to daptomycin as well as tetracycline. DIAGNOSTIC IMPRESSION AND PLAN: 1. The patient with vancomycin-resistant Enterococcus bacteremia, source likely PICC line, which has been discontinued. Currently waiting for repeat blood cultures as well as catheter tip culture. Daptomycin will be discontinued. The patient unfortunately on Cymbalta, tramadol, and mirtazapine, interacting with daptomycin as we do not have any other option for treatment. We will discontinue those 3 medications and start the patient on Zyvox and monitor him closely. 2. The patient with left lateral malleolar wound and concerning for underlying osteomyelitis. Cultures are currently pending. Continue Zosyn, will likely need a PICC line once we cleared his bacteremia. This has been discussed with DIRECTOR HEART for admitting team. Significant amount of time has been spent calling the micro lab and pharmacy for his medication adjustment. Time spent has been more than 35 minutes. MMODL / IJN: [id number] /
== END 2024-05-20 15:59 | DRG 853 ==
LOC: 3SCARD 19:18 → 4SSUR 05-15 22:19
PROVIDERS: ADMIT Internal Medicine; ATTEND Internal Medicine
PROC: 0Y6D0Z3 Detachment at Left Upper Leg, Low, Open Approach (ICD-10-PCS; principal; 2024-05-05 07:30)
PROC: 0Y6P0Z3 Detachment at Right 1st Toe, Low, Open Approach (ICD-10-PCS; principal; 2024-05-05 07:30)
DX: A41.81 Sepsis due to Enterococcus (principal); I21.A1 Myocardial infarction type 2; T80.211A Bloodstream infection due to central venous catheter, initial encounter; M86.9 Osteomyelitis, unspecified; N17.9 Acute kidney failure, unspecified; Z16.21 Resistance to vancomycin; E11.52 Type 2 diabetes mellitus with diabetic peripheral angiopathy with gangrene; I13.0 Hypertensive heart and chronic kidney disease with heart failure and stage 1 through stage 4 chronic kidney disease, or unspecified chronic kidney disease; I69.354 Hemiplegia and hemiparesis following cerebral infarction affecting left non-dominant side; I47.10 Supraventricular tachycardia, unspecified; I47.20 Ventricular tachycardia, unspecified; I50.22 Chronic systolic (congestive) heart failure; I70.263 Atherosclerosis of native arteries of extremities with gangrene, bilateral legs; D63.1 Anemia in chronic kidney disease; I25.10 Atherosclerotic heart disease of native coronary artery without angina pectoris; A41.89 Other specified sepsis; E11.69 Type 2 diabetes mellitus with other specified complication; R65.20 Severe sepsis without septic shock; E11.22 Type 2 diabetes mellitus with diabetic chronic kidney disease; E78.5 Hyperlipidemia, unspecified; N18.9 Chronic kidney disease, unspecified; Y84.8 Other medical procedures as the cause of abnormal reaction of the patient, or of later complication, without mention of misadventure at the time of the procedure; Z95.1 Presence of aortocoronary bypass graft; Z95.5 Presence of coronary angioplasty implant and graft
CPT/HCPCS: 36410; 70450; 71045; 72125; 72170; 74176; 76705; 76937; 80048; 80053; 83036; 83540; 83550; 83735; 84145; 85025; 85652; 86140; 86850; 86900; 86901; 86920; 87040; 87070; 87075; 87077; 87186; 87205; 93005; 93306; 96374; 96375; 99285

== ENCOUNTER 2024-05-25 15:53 | Inpatient (IN) | payer OTHER, MEDICARE ==
[2024-05-25] MEDS ORDERED: VANCOMYCIN IV PER PHARMACY 1 EACH MISC MISCELLANE PRN (16:44)
--- NOTE | 2024-05-25 16:48 | ED ---
General Adult HPI - General Chief complaint: Skin/Abscess/Foreign Body Stated complaint: R leg wound Time Seen by Provider: 05/25/24 15:58 Source: patient, EMS, RN notes reviewed Mode of arrival: EMS Limitations: no limitations - History of Present Illness Initial comments: Patient is a 68-year-old male presenting to the emergency department from [facility] with concerns for wounds on his right foot. Patient has chronic right foot wounds with recent partial amputation of the great toe. Patient has had increased drainage. Patient has an increased pain. Symptoms have progressed over the past few days. - Related Data Home Medications Medication Instructions Recorded Confirmed Tamsulosin [Flomax] 0.4 mg PO BID 07/03/21 03/11/24 Cholecalciferol [Vitamin D3 (25 25 mcg PO DAILY 10/22/21 03/11/24 Mcg = 1000 Iu)] Metoprolol Succinate (ER) [Toprol 50 mg PO HS 01/22/24 03/11/24 XL] Aspirin EC [Ecotrin Low Dose] 81 mg PO DAILY 03/11/24 03/11/24 Cyanocobalamin (Vitamin B-12) 1,000 mcg PO DAILY 03/11/24 03/11/24 [Vitamin B-12] Gabapentin [Neurontin] 600 mg PO TID 03/11/24 03/11/24 Previous Rx's Medication Instructions Recorded Ticagrelor [Brilinta] 90 mg PO BID #60 tab 05/07/21 Atorvastatin [Lipitor] 80 mg PO HS #90 tab 04/09/22 Isosorbide Mononitrate ER [Imdur] 60 mg PO DAILY #30 tab 04/09/22 Fluconazole [Diflucan] 100 mg PO DAILY #7 tab 05/14/24 HYDROcodone/APAP 5-325MG [[place] 1 each PO Q6HR PRN 3 Days #12 tab 05/14/24 5-325] Pantoprazole [Protonix] 40 mg PO AC-BRKFST #30 tab 05/14/24 Amoxic-Pot Clav 875-125Mg 1 each PO Q12HR 10 Days #20 tab 05/20/24 [Augmentin 875-125] Docusate [Colace] 100 mg PO BID cap 05/20/24 Heparin Sodium,Porcine (1 ml) 5,000 unit SQ Q12HR each 05/20/24 [Heparin Sodium] INSULIN ASPART (NovoLOG) [NovoLOG 0 unit SQ ACHS each 05/20/24 (formulary)] Melatonin 5 mg PO HS tab 05/20/24 Allergies Allergy/AdvReac Type Severity Reaction Status Date / Time No Known Allergies Allergy Verified 05/25/24 16:04 Review of Systems ROS Statement: Those systems with pertinent positive or pertinent negative responses have been documented in the HPI. ROS Other: All systems not noted in ROS Statement are negative. Constitutional: Denies: fever Eyes: Denies: eye pain ENT: Denies: ear pain Respiratory: Denies: cough Cardiovascular: Denies: chest pain Endocrine: Denies: fatigue Musculoskeletal: Reports: as per HPI Skin: Reports: as per HPI Past Medical History Past Medical History: Coronary Artery Disease (CAD), Chest Pain / Angina, COPD, CVA/TIA, Diabetes Mellitus, Hyperlipidemia, Hypertension, Memory Impairment, Myocardial Infarction (MT), Prostate Disorder, Sleep Apnea/CPAP/BIPAP, Vascular Disorder Additional Past Medical History / Comment(s): Peripheral vascular disease, renal artery stenosis with previous renal artery stenting, insomnia,NEUROPATHY, stroke 05/03/21-left side weakness, migraines, not using CPAP currently, diet control diabetic, 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 bilateral renal artery stenting, balloon angioplasty of coronary artery, open heart surgery 02/2015-double bypass Past Anesthesia/Blood Transfusion Reactions: No Reported Reaction Past Psychological History: Anxiety, Depression Smoking Status: Former smoker Past Alcohol Use History: None Reported Past Drug Use History: Marijuana - Past Family History Brother(s) Family Medical History: Myocardial Infarction (MT) Father Family Medical History: CVA/TIA, Myocardial Infarction (MT) Additional Family Medical History / Comment(s): ANEURYSM Mother Family Medical History: CVA/TIA, Deep Vein Thrombosis (DVT), Myocardial Infarction (MT) Sister(s) Family Medical History: Cancer, Myocardial Infarction (MT) Additional Family Medical History / Comment(s): 3 sisters- MT General Exam Limitations: no limitations General appearance: alert, in no apparent distress Head exam: Present: normocephalic Respiratory exam: Present: normal lung sounds bilaterally Cardiovascular Exam: Present: regular rate, normal rhythm Expanded Peripheral pulses: 1+: Posterior Tibialis (R), Dorsalis Pedis (R) GI/Abdominal exam: Present: soft. Absent: tenderness Extremities exam: Present: other (Left leg amputation. Right lower leg partial great toe amputation. Foot feels cool. There is erythema as well as pallor. Several ulcers of different stages) Neurological exam: Present: alert Psychiatric exam: Present: normal affect, normal mood Skin exam: Present: other (Foot ulcers) Course Vital Signs 05/25/24 05/25/24 05/25/24 15:56 18:33 19:11 Temperature 98.6 F 98 F Pulse Rate 96 100 115 H Respiratory 18 18 16 Rate Blood Pressure 98/61 84/65 75/58 O2 Sat by Pulse 96 95 100 Oximetry 05/25/24 19:29 Temperature 98.9 F Pulse Rate 89 Respiratory 18 Rate Blood Pressure 96/69 O2 Sat by Pulse 100 Oximetry - Reevaluation(s) Reevaluation #1: 05/25/24 20:08 Systolic blood pressure 112 EKG Findings - EKG Results: EKG: interpreted by ERMD (Left axis. Septal Q waves. Lateral T wave inversion.), sinus rhythm EKG shows: tachycardia Medical Decision Making - Medical Decision Making Was pt. sent in by a medical professional or institution (, PA, MUSIC TYPOGRAPHER, urgent care, hospital, or longterm...) When possible be specific @ -Patient was sent in by nursing facility Did you speak to anyone other than the patient for history (EMS, parent, family, police, friend...)? What history was obtained from this source @ -No Did you review nursing and triage notes (agree or disagree)? Why? @ -I reviewed and agree with nursing and triage notes Were old charts reviewed (outside hosp., previous admission, EMS record, old EKG, old radiological studies, urgent care reports/EKG's, longterm records)? Report findings @ -Reviewed from nursing facility as well as previous admission Differential Diagnosis (chest pain, altered mental status, abdominal pain women, abdominal pain men, vaginal bleeding, weakness, fever, dyspnea, syncope, head ache, dizziness, GI bleed, back pain, seizure, CVA, palpatations, mental health, musculoskeletal)? @ -Differential Fever: Pneumonia, viral URI, endocarditis, myocarditis, pericarditis, otitis, sinus itis, peritonsillar Abscess, retropharyngeal Abscess, epiglottitis, peritonitis, appendicitis, Cheryl cystitis, diverticulitis, hepatitis, colitis, UTI, PID, TOA, pyelonephritis, prostatitis, epididymitis, meningitis, encephalitis, pulmonary embolism, CVA, thyroid storm, pancreatitis, adrenal crisis, cavernous sinus thrombosis, this is not meant to be an all-inclusive list. EKG interpreted by me (3pts min.). @ -As above X-rays interpreted by me (1pt min.). @ -X-ray shows previous amputation. Possible diminished osseous density second phalanx. Soft tissue swelling. CT interpreted by me (1pt min.). @ -None done U/S interpreted by me (1pt. min.). @ -None done What testing was considered but not performed or refused? (CT, X-rays, U/S, labs)? Why? @ -None What meds were considered but not given or refused? Why? @ -None Did you discuss the management of the patient with other professionals (professionals i.e. , PA, MUSIC TYPOGRAPHER, lab, RT, psych nurse, high school social science teacher, intellectual property lawyer, teacher, chief procurement officer, geriatric case manager)? Give summary @ -[facility] will admit covering Dr. Manzano Was smoking cessation discussed for >3mins.? @ -No Was critical care preformed (if so, how long)? @ -31 minutes critical. Were there social determinants of health that impacted care today? How? (Homelessness, low income, unemployed, alcoholism, drug addiction, transportation, low edu. Level, literacy, decrease access to med. care, skilled nursing, rehab)? @ -No Was there de-escalation of care discussed even if they declined (Discuss DNR or withdrawal of care, Hospice)? DNR status @ -No What co-morbidities impacted this encounter? (DM, HTN, Smoking, COPD, CAD, Cancer, CVA, ARF, Chemo, Hep., AIDS, mental health diagnosis, sleep apnea, morbid obesity)? @ -History of previous amputation and peripheral vascular disease Was patient admitted / discharged? Hospital course, mention meds given and route, prescriptions, significant lab abnormalities, going to OR and other pertinent info. @ -Patient reevaluated and updated. There is concern for sepsis, blood culture, lactic acid, IV antibiotics and fluid bolus have all been ordered. Admission orders written. Blood pressure in the 90s Undiagnosed new problem with uncertain prognosis? @ -No Drug Therapy requiring intensive monitoring for toxicity (Heparin, Nitro, Insulin, Cardizem)? @ -No Were any procedures done? @ -No Diagnosis/symptom? @ -Cellulitis right foot, sepsis Acute, or Chronic, or Acute on Chronic? @ -Acute on chronic, acute Uncomplicated (without systemic symptoms) or Complicated (systemic symptoms)? @ -Complicated with sepsis and recent partial amputation Side effects of treatment? @ -No Exacerbation, Progression, or Severe Exacerbation? @ -No Poses a threat to life or bodily function? How? (Chest pain, [place], MT, pneumonia, PE, COPD, DKA, ARF, appy, cholecystitis, CVA, Diverticulitis, Homicidal, Suicidal, threat to staff... and all critical care pts) @ -Threat to limb function - Lab Data Result diagrams: 05/25/24 17:52 05/25/24 17:52 Lab Results 05/25/24 05/25/24 05/25/24 Range/Units 17:52 17:52 17:52 WBC 18.2 H (3.8-10.6) k/uL RBC 3.20 L (4.30-5.90) m/uL Hgb 8.6 L (13.0-17.5) gm/dL Hct 25.7 L (39.0-53.0) % MCV 80.4 (80.0-100.0) fL MCH 26.9 (25.0-35.0) pg MCHC 33.4 (31.0-37.0) g/dL RDW 20.7 H (11.5-15.5) % Plt Count 447 (150-450) k/uL MPV 8.4 Neutrophils % 87 % Lymphocytes % 9 % Monocytes % 3 % Eosinophils % 0 % Basophils % 0 % Neutrophils # 15.9 H (1.3-7.7) k/uL Lymphocytes # 1.6 (1.0-4.8) k/uL Monocytes # 0.5 (0-1.0) k/uL Eosinophils # 0.1 (0-0.7) k/uL Basophils # 0.0 (0-0.2) k/uL Anisocytosis Moderate Microcytosis Slight PT 11.8 (10.0-12.5) sec INR 1.1 (<1.2) APTT 25.4 (22.0-30.0) sec Sodium 136 L (137-145) mmol/L Potassium 3.9 (3.5-5.1) mmol/L Chloride 105 (98-107) mmol/L Carbon Dioxide 22 (22-30) mmol/L Anion Gap 9 mmol/L BUN 11 (9-20) mg/dL Creatinine 0.72 (0.66-1.25) mg/dL Est GFR (CKD-EPI)AfAm >90 (>60 ml/min/1.73 sqM) Est GFR (CKD-EPI)NonAf >90 (>60 ml/min/1.73 sqM) Glucose 145 H (74-99) mg/dL Plasma Lactic Acid Mike (0.7-2.0) mmol/L Calcium 8.6 (8.4-10.2) mg/dL Total Bilirubin 0.8 (0.2-1.3) mg/dL AST 41 (17-59) U/L ALT 26 (4-49) U/L Alkaline Phosphatase 107 (38-126) U/L Total Protein 6.1 L (6.3-8.2) g/dL Albumin 2.8 L (3.5-5.0) g/dL 05/25/24 Range/Units 17:52 WBC (3.8-10.6) k/uL RBC (4.30-5.90) m/uL Hgb (13.0-17.5) gm/dL Hct (39.0-53.0) % MCV (80.0-100.0) fL MCH (25.0-35.0) pg MCHC (31.0-37.0) g/dL RDW (11.5-15.5) % Plt Count (150-450) k/uL MPV Neutrophils % % Lymphocytes % % Monocytes % % Eosinophils % % Basophils % % Neutrophils # (1.3-7.7) k/uL Lymphocytes # (1.0-4.8) k/uL Monocytes # (0-1.0) k/uL Eosinophils # (0-0.7) k/uL Basophils # (0-0.2) k/uL Anisocytosis Microcytosis PT (10.0-12.5) sec INR (<1.2) APTT (22.0-30.0) sec Sodium (137-145) mmol/L Potassium (3.5-5.1) mmol/L Chloride (98-107) mmol/L Carbon Dioxide (22-30) mmol/L Anion Gap mmol/L BUN (9-20) mg/dL Creatinine (0.66-1.25) mg/dL Est GFR (CKD-EPI)AfAm (>60 ml/min/1.73 sqM) Est GFR (CKD-EPI)NonAf (>60 ml/min/1.73 sqM) Glucose (74-99) mg/dL Plasma Lactic Acid Mike 2.8 H* (0.7-2.0) mmol/L Calcium (8.4-10.2) mg/dL Total Bilirubin (0.2-1.3) mg/dL AST (17-59) U/L ALT (4-49) U/L Alkaline Phosphatase (38-126) U/L Total Protein (6.3-8.2) g/dL Albumin (3.5-5.0) g/dL Critical Care Time Critical Care Time: Yes Disposition Clinical Impression: Cellulitis of right foot, Sepsis, PVD (peripheral vascular disease) Disposition: ADMITTED IP TO THIS [facility] Condition: Serious Is patient prescribed a controlled substance at d/c from ED?: No Referrals: Kar Manzano MD [Primary Care Provider] - 1-2 days Time of Disposition: 20:01
[2024-05-25] MEDS: LACTATED RINGERS 1,000 ML IV SCH (17:59)
[2024-05-25 18:05] LABS: Anisocytosis Moderate; Basophils % (A) 0 %; Eosinophils # (A) 0.1 k/uL (0-0.7); Eosinophils % (A) 0 %; HCT 25.7 % (39.0-53.0); HGB 8.6 gm/dL (13.0-17.5); Lymphocytes # (A) 1.6 k/uL (1.0-4.8); Lymphocytes % (A) 9 %; MCH 26.9 pg (25.0-35.0); MCHC 33.4 g/dL (31.0-37.0); MCV 80.4 fL (80.0-100.0); Mean Platelet Volume 8.4; Microcytosis Slight; Monocytes # (A) 0.5 k/uL (0-1.0); Monocytes % (A) 3 %; Neutrophils # (A) 15.9 k/uL (1.3-7.7); Neutrophils % (A) 87 %; Platelet Count 447 k/uL (150-450); RDW 20.7 % (11.5-15.5); WBC 18.2 k/uL (3.8-10.6)
[2024-05-25 18:10] LABS: INR 1.1 (<1.2); Partial Thromboplastin Time 25.4 sec (22.0-30.0); Prothrombin Time 11.8 sec (10.0-12.5)
[2024-05-25] MEDS: VANCOMYCIN 1,500 MG in SODIUM CHLORIDE 0.9% 500 ML 500 ML IVPB ONE (18:10)
[2024-05-25 18:14] LABS: ALT 26 U/L (4-49); AST 41 U/L (17-59); African American GFR (CKD) >90 (>60 ml/min/1.73 sqM); Albumin 2.8 g/dL (3.5-5.0); Alkaline Phosphatase 107 U/L (38-126); Anion Gap 9 mmol/L; Blood Urea Nitrogen 11 mg/dL (9-20); Calcium 8.6 mg/dL (8.4-10.2); Carbon Dioxide 22 mmol/L (22-30); Chloride 105 mmol/L (98-107); Glucose 145 mg/dL (74-99); Non-African American GFR(CKD) >90 (>60 ml/min/1.73 sqM); Potassium 3.9 mmol/L (3.5-5.1); Sodium 136 mmol/L (137-145); Total Bilirubin 0.8 mg/dL (0.2-1.3); Total Protein 6.1 g/dL (6.3-8.2)
[2024-05-25] MEDS: SODIUM CHLORIDE 0.9% 1,000 ML IV ONE (19:28)
[2024-05-25] MEDS: SODIUM CHLORIDE 0.9% 1,000 ML IV STA (19:28)
[2024-05-25] MEDS: SODIUM CHLORIDE 0.9% 500 ML 500 ML IV STA (19:28)
--- NOTE | 2024-05-25 19:29 | XR ---
EXAMINATION TYPE: XR foot complete RT DATE OF EXAM: 05/25/2024 COMPARISON: 04/23/2024 HISTORY: Infection care TECHNIQUE: 3 view right foot FINDINGS: There may be amputation of the distal portion of the distal phalanx great toe. There is diminished osseous density of the distal phalanx second digit. Soft tissue swelling is over this digit. Cortical disruption horrors not clearly identified. Three-phase bone scan can be performe d for sufficient clinical suspicion of osteomyelitis. There is diminished osseous density of the medial portion fifth metatarsal phalangeal joint space sim ilar to comparison. IMPRESSION: 1. Diminished osseous density distal phalanx second digit and metatarsophalangeal joint space. Jese x however is not disrupted. Three-phase bone scan could be performed if there is clinical concern for osteomyelitis at these levels. 2. Soft tissue swelling over the second digit. 3. Prior amputation of the distal portion first digit [facility], , 05/25/2024 7:27 PM
[2024-05-25] MEDS ORDERED: NALOXONE 0.4 MG/ML 1 ML VIAL IV PRN (20:02)
[2024-05-25] MEDS: SODIUM CHLORIDE 0.9% 1,000 ML IV SCH (21:24)
[2024-05-25] MEDS: GABAPENTIN 300 MG CAP PO SCH (22:21)
[2024-05-25] MEDS: TICAGRELOR 90 MG TAB PO SCH (22:21)
[2024-05-25] MEDS: MELATONIN 5 MG TABLET PO SCH (22:21)
[2024-05-25] MEDS: DOCUSATE 100 MG CAP PO SCH (22:21)
[2024-05-25] MEDS: ATORVASTATIN 80 MG TAB PO SCH (22:22)
[2024-05-25] MEDS: HYDROcodone/APAP 5-325MG 1 EACH TAB PO PRN (22:35)
[2024-05-26 03:09] LABS: Anisocytosis Moderate; Basophils % (A) 0 %; Eosinophils # (A) 0.1 k/uL (0-0.7); Eosinophils % (A) 0 %; HCT 22.9 % (39.0-53.0); HGB 7.3 gm/dL (13.0-17.5); Hypochromasia Slight; Lymphocytes # (A) 1.4 k/uL (1.0-4.8); Lymphocytes % (A) 9 %; MCH 26.2 pg (25.0-35.0); Mean Platelet Volume 8.7; Microcytosis Slight; Monocytes # (A) 0.6 k/uL (0-1.0); Monocytes % (A) 4 %; Neutrophils # (A) 14.4 k/uL (1.3-7.7); Neutrophils % (A) 86 %; Platelet Count 443 k/uL (150-450); RDW 20.5 % (11.5-15.5); WBC 16.7 k/uL (3.8-10.6)
[2024-05-26 03:17] LABS: African American GFR (CKD) >90 (>60 ml/min/1.73 sqM); Anion Gap 7 mmol/L; Blood Urea Nitrogen 9 mg/dL (9-20); Calcium 7.9 mg/dL (8.4-10.2); Carbon Dioxide 20 mmol/L (22-30); Chloride 109 mmol/L (98-107); Glucose 169 mg/dL (74-99); Non-African American GFR(CKD) >90 (>60 ml/min/1.73 sqM); Potassium 3.5 mmol/L (3.5-5.1); Sodium 136 mmol/L (137-145)
[2024-05-26] MEDS ORDERED: DEXTROSE 50% SYRINGE 50 ML IVP PRN ×2 (05:01)
[2024-05-26 06:14] LABS: Glucose,Whole Blood 150 mg/dL (70-110)
[2024-05-26] MEDS: INSULIN ASPART (NovoLOG) 100 UNIT/ML VIAL SQ SCH (06:34)
[2024-05-26] MEDS: VANCOMYCIN 1,250 MG in SODIUM CHLORIDE 0.9% 250 ML IVPB SCH (06:37)
[2024-05-26] MEDS: PANTOPRAZOLE 40 MG TABLET PO SCH (06:37)
[2024-05-26] MEDS: CYANOCOBALAMIN 500 MCG TAB PO SCH (08:18)
[2024-05-26] MEDS: TAMSULOSIN 0.4 MG CAP.ER.24H PO SCH (08:18)
[2024-05-26] MEDS: HEPARIN SODIUM,PORCINE 5,000 UNIT/ML 1 ML VIAL SQ SCH (08:18)
[2024-05-26] MEDS: ASPIRIN 81 MG PO SCH (08:19)
[2024-05-26] MEDS: CHOLECALCIFEROL 25 MCG (1000 IU) TABLET PO SCH (08:19)
[2024-05-26] MEDS ORDERED: NON FORMULARY DRUG (Lactose-Reduced Food [Ensure Plus] 237 ML Liquid) PO SCH (09:00)
[2024-05-26 11:49] LABS: Glucose,Whole Blood 149 mg/dL (70-110)
--- NOTE | 2024-05-26 12:44 | XR ---
EXAMINATION TYPE: XR chest 1V portable DATE OF EXAM: 05/26/2024 COMPARISON: 04/23/2024 INDICATION: CHF TECHNIQUE: Single frontal view of the chest is obtained. FINDINGS: The heart size is mildly prominent. The pulmonary vasculature is normal. The lungs are clear. Evaluation of the right diaphragm, stable IMPRESSION: 1. No acute pulmonary process. [facility], , 05/26/2024 12:42 PM
--- NOTE | 2024-05-26 12:53 | P.GSCN ---
History of Present Illness Consult date: 05/26/24 Reason for Consult: Vascular disease Requesting physician: Abiel Sweeney History of present illness: 68-year-old -Ivorian male well-known to vascular surgery with history of lateral lower extremity peripheral arterial disease. He has had a previous balloon angioplasty and renal artery stenting. Patient has had chronic wounds to his lower extremities. He underwent left dqzrh-ris-gvbt amputation on 05/05/2024 and a right great toe partial amputation with Dr. Velez. He has been at [facility] on the [place] and apparently there was concern for a right foot infection. He was sent in for further evaluation. Patient has significant peripheral arterial disease to the right lower extremity with complete occlusion of common, internal and external iliac arteries with occlusion of the common femoral artery, SFA occlusion and popliteal. There is no option for revascularization and it has been discussed with patient multiple times previously that he would require aqdoq-crk-ztdc amputations bilaterally. Also was recommended multiple times that patient could go for a second opinion in the city to see if there is anything more that can be done from a revascularization standpoint however patient has failed to get second opinion. He states he has pain down the right lower extremity hanging his leg dependently does improve that pain. He states that his foot has been weeping clear fluid. He states he has been getting wound care at [facility]. He has jeffrey in place in the left AKA. He denies any fevers, chills, abdominal pain, nausea or vomiting. No shortness of breath or chest pain. He has been afebrile. Patient presented with leukocytosis on admission with lactic acidosis. Review of Systems A 14 point review systems was completed all pertinent positives and negatives as stated in the HPI. Past Medical History Past Medical History: Coronary Artery Disease (CAD), Chest Pain / Angina, COPD, CVA/TIA, Diabetes Mellitus, Hyperlipidemia, Hypertension, Memory Impairment, Myocardial Infarction (MA), Prostate Disorder, Sleep Apnea/CPAP/BIPAP, Vascular Disorder Additional Past Medical History / Comment(s): Peripheral vascular disease, renal artery stenosis with previous renal artery stenting, insomnia,NEUROPATHY, stroke 05/03/21-left side weakness, migraines, not using CPAP currently, diet control diabetic, rt cartoid artery 80% blockage, "small arteries" Last Myocardial Infarction Date:: 2014 History of Any Multi-Drug Resistant Organisms: VRE Year Discovered:: 04/24/24 MDRO Source:: BLOOD Past Surgical History: Coronary Bypass/CABG, Heart Catheterization Additional Past Surgical History / Comment(s): Previous PTCA of the lower rt extremity with stenting, LT ILIAC ARTERY STENT. bilateral renal artery stenting, balloon angioplasty of coronary artery, open heart surgery 02/2015-double bypass, Left AKA 2023, Right great toe partial amputation Past Anesthesia/Blood Transfusion Reactions: No Reported Reaction Past Psychological History: Anxiety, Depression Smoking Status: Former smoker Past Alcohol Use History: None Reported Additional Past Alcohol Use History / Comment(s): quit smoking 30 yrs ago, smoked for 20 yrs. pt states he smoked occasionally this year but quit when he started having frequent hospital admissions Past Drug Use History: Marijuana Additional Drug Use History / Comment(s): daily - Past Family History Brother(s) Family Medical History: Myocardial Infarction (MA) Father Family Medical History: CVA/TIA, Myocardial Infarction (MA) Additional Family Medical History / Comment(s): ANEURYSM Mother Family Medical History: CVA/TIA, Deep Vein Thrombosis (DVT), Myocardial Infarction (MA) Sister(s) Family Medical History: Cancer, Myocardial Infarction (MA) Additional Family Medical History / Comment(s): 3 sisters- [place] Medications and Allergies Home Medications Medication Instructions Recorded Confirmed Type Tamsulosin [Flomax] 0.4 mg PO DAILY@0907/03/21 05/25/24 History Cholecalciferol [Vitamin D3 (25 25 mcg PO DAILY@0910/22/21 05/25/24 History Mcg = 1000 Iu)] Metoprolol Succinate (ER) [Toprol 50 mg PO HS@209901/22/24 05/25/24 History XL] Aspirin EC [Ecotrin Low Dose] 81 mg PO DAILY@89903/11/24 05/25/24 History Cyanocobalamin (Vitamin B-12) 1,000 mcg PO DAILY@89903/11/24 05/25/24 History [Vitamin B-12] Amoxic-Pot Clav 875-125Mg 1 tab PO Q12HR 05/25/24 05/25/24 History [Augmentin 875-125] Atorvastatin [Lipitor] 80 mg PO HS@209905/25/24 05/25/24 History Docusate [Colace] 100 mg PO BID@0900,209905/25/24 05/25/24 History Fluconazole [Diflucan] 100 mg PO DAILY@89905/25/24 05/25/24 History Gabapentin 600 mg PO TID@899,1299,209905/25/24 05/25/24 History HYDROcodone/APAP 5-325MG [[place] 1 tab PO Q6HR PRN 05/25/24 05/25/24 History 5-325] Heparin Sodium,Porcine (1 ml) 5,000 unit SQ BID@899,209905/25/24 05/25/24 History [Heparin Sodium] INSULIN ASPART (NovoLOG) [NovoLOG See Protocol SQ ACHS@,,,05/25/24 05/25/24 History (formulary)] Isosorbide Mononitrate ER [Imdur] 60 mg PO DAILY@89905/25/24 05/25/24 History Lactose-Reduced Food [Ensure Plus] 237 ml PO BID@899,199905/25/24 05/25/24 History Melatonin 5 mg PO HS@209905/25/24 05/25/24 History Omeprazole 20 mg PO DAILY@59905/25/24 05/25/24 History Ticagrelor [Brilinta] 90 mg PO BID@899,209905/25/24 05/25/24 History Allergies Allergy/AdvReac Type Severity Reaction Status Date / Time No Known Allergies Allergy Verified 05/25/24 20:12 Surgical - Exam Vital Signs Temp Pulse Resp BP Pulse Ox 98.6 F 96 18 98/61 96 05/25/24 15:56 05/25/24 15:56 05/25/24 15:56 05/25/24 15:56 05/25/24 15:56 General appearance: The patient is alert, oriented, appears in no acute distress. HET: Head is normocephalic and atraumatic. Pupils are equal and reactive. Neck: Supple. Heart: Regular. Lungs: Equal expansion, normal respiratory effort. Abdomen: Soft, nontender, nondistended. Extremities: Left AKA surgical site well-approximated with jeffrey. Warm to the touch, no erythema or drainage. Right lower extremity +2 pitting edema, right foot cool to the touch. Great toe with sutures in place. Multiple noninfected ulcers to dorsal aspect of foot and along the arredondo. Neurological: No focal deficits. Strength and sensation are grossly intact. Results - Labs 05/26/24 02:54 05/26/24 02:54 Abnormal Lab Results - Last 24 Hours (Table) 05/25/24 05/25/24 05/25/24 Range/Units 17:52 17:52 17:52 WBC 18.2 H (3.8-10.6) k/uL RBC 3.20 L (4.30-5.90) m/uL Hgb 8.6 L (13.0-17.5) gm/dL Hct 25.7 L (39.0-53.0) % RDW 20.7 H (11.5-15.5) % Neutrophils # 15.9 H (1.3-7.7) k/uL Sodium 136 L (137-145) mmol/L Chloride (98-107) mmol/L Carbon Dioxide (22-30) mmol/L Creatinine (0.66-1.25) mg/dL Glucose 145 H (74-99) mg/dL POC Glucose (mg/dL) (70-110) mg/dL Plasma Lactic Acid Mike 2.8 H* (0.7-2.0) mmol/L Calcium (8.4-10.2) mg/dL Total Protein 6.1 L (6.3-8.2) g/dL Albumin 2.8 L (3.5-5.0) g/dL 05/25/24 05/25/24 05/26/24 Range/Units 20:29 23:35 02:54 WBC 16.7 H (3.8-10.6) k/uL RBC 2.80 L (4.30-5.90) m/uL Hgb 7.3 L (13.0-17.5) gm/dL Hct 22.9 L (39.0-53.0) % RDW 20.5 H (11.5-15.5) % Neutrophils # 14.4 H (1.3-7.7) k/uL Sodium (137-145) mmol/L Chloride (98-107) mmol/L Carbon Dioxide (22-30) mmol/L Creatinine (0.66-1.25) mg/dL Glucose (74-99) mg/dL POC Glucose (mg/dL) (70-110) mg/dL Plasma Lactic Acid Mike 2.5 H* 2.5 H* (0.7-2.0) mmol/L Calcium (8.4-10.2) mg/dL Total Protein (6.3-8.2) g/dL Albumin (3.5-5.0) g/dL 05/26/24 05/26/24 Range/Units 02:54 06:04 WBC (3.8-10.6) k/uL RBC (4.30-5.90) m/uL Hgb (13.0-17.5) gm/dL Hct (39.0-53.0) % RDW (11.5-15.5) % Neutrophils # (1.3-7.7) k/uL Sodium 136 L (137-145) mmol/L Chloride 109 H (98-107) mmol/L Carbon Dioxide 20 L (22-30) mmol/L Creatinine 0.64 L (0.66-1.25) mg/dL Glucose 169 H (74-99) mg/dL POC Glucose (mg/dL) 150 H (70-110) mg/dL Plasma Lactic Acid Mike (0.7-2.0) mmol/L Calcium 7.9 L (8.4-10.2) mg/dL Total Protein (6.3-8.2) g/dL Albumin (3.5-5.0) g/dL Diabetes panel 05/25/24 05/26/24 Range/Units 17:52 02:54 Sodium 136 L 136 L (137-145) mmol/L Potassium 3.9 3.5 (3.5-5.1) mmol/L Chloride 105 109 H (98-107) mmol/L Carbon Dioxide 22 20 L (22-30) mmol/L BUN 11 9 (9-20) mg/dL Creatinine 0.72 0.64 L (0.66-1.25) mg/dL Glucose 145 H 169 H (74-99) mg/dL Calcium 8.6 7.9 L (8.4-10.2) mg/dL AST 41 (17-59) U/L ALT 26 (4-49) U/L Alkaline Phosphatase 107 (38-126) U/L Total Protein 6.1 L (6.3-8.2) g/dL Albumin 2.8 L (3.5-5.0) g/dL Calcium panel 05/25/24 05/26/24 Range/Units 17:52 02:54 Calcium 8.6 7.9 L (8.4-10.2) mg/dL Albumin 2.8 L (3.5-5.0) g/dL Pituitary panel 05/25/24 05/26/24 Range/Units 17:52 02:54 Sodium 136 L 136 L (137-145) mmol/L Potassium 3.9 3.5 (3.5-5.1) mmol/L Chloride 105 109 H (98-107) mmol/L Carbon Dioxide 22 20 L (22-30) mmol/L BUN 11 9 (9-20) mg/dL Creatinine 0.72 0.64 L (0.66-1.25) mg/dL Glucose 145 H 169 H (74-99) mg/dL Calcium 8.6 7.9 L (8.4-10.2) mg/dL Adrenal panel 05/25/24 05/26/24 Range/Units 17:52 02:54 Sodium 136 L 136 L (137-145) mmol/L Potassium 3.9 3.5 (3.5-5.1) mmol/L Chloride 105 109 H (98-107) mmol/L Carbon Dioxide 22 20 L (22-30) mmol/L BUN 11 9 (9-20) mg/dL Creatinine 0.72 0.64 L (0.66-1.25) mg/dL Glucose 145 H 169 H (74-99) mg/dL Calcium 8.6 7.9 L (8.4-10.2) mg/dL Total Bilirubin 0.8 (0.2-1.3) mg/dL AST 41 (17-59) U/L ALT 26 (4-49) U/L Alkaline Phosphatase 107 (38-126) U/L Total Protein 6.1 L (6.3-8.2) g/dL Albumin 2.8 L (3.5-5.0) g/dL - Imaging Comments: Right foot x-ray reports diminished osseous density distal phalanx second digit and metatarso phalangeal joint space. Cortex however is not disrupted. Three- phase bone scan could be performed if there is clinical concern for osteomyelitis at these levels. Soft tissue swelling over the second digit. Prior amputation of the distal portion first digit. Assessment and Plan Assessment: 1. Chronic right lower extremity wounds 2. Severe peripheral arterial disease with chronic lower extremity ischemia 3. Diabetes mellitus 4. Recent left AKA and right great toe partial amputation Plan: 1. Continue IV antibiotics per recommendation from infectious disease 2. Continue local wound care 3. I do not believe patient is a candidate for revascularization due to severity of peripheral arterial disease with previous revascularization. Can consider transfer to tertiary center for second opinion from vascular surgery for possible revascularization. 4. Consult wound care 5. No plans on surgical intervention at this time. Discussed with patient surgical option would be biicn-bux-hlyp amputation and that may also likely not heal due to poor blood flow 6. Recommend primary medical team discussed with patient goals of care Thank you for this consultation, we will continue to follow. The impression and plan of care has been dictated as directed. I performed a history and examination of this patient, discussed the same with the dictator. I agree with the dictator's note ,documented as a scribe. Any additional findings or plans will be noted.
--- NOTE | 2024-05-26 13:04 | HP ---
HISTORY AND PHYSICAL CHIEF COMPLAINT: Right foot wound. HISTORY OF PRESENT ILLNESS: This 68-year-old gentleman with a past medical history of multiple medical problems, was recently admitted to [facility]. The patient had left above-knee amputation recently. Currently, the patient is complaining of significant partial amputation of the right big toe. Currently, the patient complains of swelling, ooziness, coldness of the right foot and Dr. Velez is planning an amputation. The patient admitted for further evaluation and treatment. There is no history of any fever, rigors, chills at this time. PAST MEDICAL HISTORY: History of peripheral vascular disease, COPD, multiple medical issues, which was reviewed. MEDICATIONS: Include hydrocodone. Rest of medication doses are reviewed. ALLERGIES: None. FAMILY HISTORY: History of myocardial infarction and CVA in the family. SOCIAL HISTORY: Previous history of smoking, THC. REVIEW OF SYSTEMS: 14-point review of systems is negative except as mentioned earlier. PHYSICAL EXAMINATION: VITAL SIGNS: Pulse is 89, blood pressure 100/69, respirations 16. HEENT: Conjunctivae normal. NECK: No JVD. CARDIOVASCULAR: S1, S2. RESPIRATIONS: Breath sounds diminished at the bases. ABDOMEN: Soft, nontender. EXTREMITIES: Status post left above-knee amputation, right foot swelling, tenderness, oozing, coldness present. NERVOUS SYSTEM: Nonfocal. SKIN: No ulcer, rash, bleeding. JOINTS: No active deforming arthropathy. LABORATORY DATA: WBC 16.3. Hemoglobin is 7.3. Rest of the labs noted. ASSESSMENT: 1. Right foot cellulitis with failure of outpatient treatment. 2. History of severe peripheral vascular disease. 3. History of status post recent left above-knee amputation. 4. Anemia. 5. Chronic obstructive pulmonary disease. 6. Hypertension. 7. Hyperlipidemia. 8. Multiple medical issues. RECOMMENDATION: This 68-year-old gentleman presented with multiple complex medical issues. We will monitor the patient closely. Continue the current management and continue the antibiotics. Infectious Disease and Vascular consultations. Otherwise symptomatic treatment. Home medications. Monitor blood sugars closely. Prognosis extremely guarded because of multiple complex medical issues. Further recommendations to follow. MMODL / IJN: [id number] /
[2024-05-26 16:35] LABS: Glucose,Whole Blood 169 mg/dL (70-110)
[2024-05-26 20:05] LABS: Glucose,Whole Blood 140 mg/dL (70-110)
[2024-05-26] MEDS: METOPROLOL SUCCINATE (ER) 50 MG TAB.ER.24H PO SCH (20:41)
[2024-05-26] MEDS: metroNIDAZOLE 500 MG TAB PO SCH (23:19)
[2024-05-26] MEDS: CEFEPIME 2 GM in SODIUM CHLORIDE 0.9% 100 ML IVPB SCH (23:19)
[2024-05-27 00:04] LABS: African American GFR (CKD) >90 (>60 ml/min/1.73 sqM); Anion Gap 6 mmol/L; Blood Urea Nitrogen 8 mg/dL (9-20); Carbon Dioxide 18 mmol/L (22-30); Chloride 112 mmol/L (98-107); Glucose 156 mg/dL (74-99); Magnesium 1.7 mg/dL (1.6-2.3); Non-African American GFR(CKD) >90 (>60 ml/min/1.73 sqM); Potassium 4.6 mmol/L (3.5-5.1); Sodium 136 mmol/L (137-145)
[2024-05-27 06:09] LABS: Glucose,Whole Blood 140 mg/dL (70-110)
[2024-05-27 07:11] LABS: Anisocytosis Moderate; Basophils % (A) 0 %; Eosinophils # (A) 0.1 k/uL (0-0.7); Eosinophils % (A) 1 %; HCT 24.4 % (39.0-53.0); HGB 7.4 gm/dL (13.0-17.5); Hypochromasia Marked; Lymphocytes # (A) 1.2 k/uL (1.0-4.8); Lymphocytes % (A) 9 %; MCH 25.6 pg (25.0-35.0); MCHC 30.2 g/dL (31.0-37.0); MCV 84.7 fL (80.0-100.0); Monocytes # (A) 0.5 k/uL (0-1.0); Monocytes % (A) 4 %; Neutrophils # (A) 11.8 k/uL (1.3-7.7); Neutrophils % (A) 85 %; Platelet Count 547 k/uL (150-450); Poikilocytosis Slight; RBC 2.88 m/uL (4.30-5.90); RDW 20.6 % (11.5-15.5); WBC 13.8 k/uL (3.8-10.6)
--- NOTE | 2024-05-27 07:26 | P.CONS ---
History of Present Illness - Reason for Consult Consult date: 05/26/24 Cellulitis, sepsis Requesting physician: Abiel Sweeney - Chief Complaint Worsening wound to the right foot x days - History of Present Illness Patient is a 68-year-old -Polish male with a past medical history significant for Coronary Artery Disease (CAD), Chest Pain / Angina, COPD, CVA/TIA, Diabetes Mellitus, Hyperlipidemia, Hypertension, Memory Impairment, Myocardial Infarction (OR), Prostate Disorder, Sleep Apnea/CPAP/BIPAP, Vascular Disorder in this patient who recently did have left gbwpr-bkp-wkou amputation for a diabetic foot infection osteomyelitis patient also have a wound on his right big toe that was debrided on his last visit blood cultures were negative patient was treated with a course of IV antibiotic therapy subsequently discharged on oral antibiotics to the local correction patient has been sent back to the ER from the correction concerning for wound to the right foot as he was noted to have increasing drainage as symptom and been getting worse over the last few days patient been complaining of pain to the right foot wound to be mostly dull aching to throbbing intensity is moderate without any radiation with associated nonhealing wound and drainage patient denies high-grade fever or any chills and no fever have been recorded during this hospital stay patient was mildly tachycardic and hypotensive but not requiring any pressor support not hypoxic he did have a white count of 18.2 with a left shift BUN and creatinine has been normal lactic acid was 2.5 repeat is 1.4 liver isms are normal blood culture has been obtained patient was started on ceftriaxone and vancomycin infectious disease was consulted for further management of antibiotic therapy Review of Systems Positive point and negatives has been mentioned in the HPI, complete review of systems was performed and all other systems are negative Past Medical History Past Medical History: Coronary Artery Disease (CAD), Chest Pain / Angina, COPD, CVA/TIA, Diabetes Mellitus, Hyperlipidemia, Hypertension, Memory Impairment, Myocardial Infarction (OR), Prostate Disorder, Sleep Apnea/CPAP/BIPAP, Vascular Disorder Additional Past Medical History / Comment(s): Peripheral vascular disease, renal artery stenosis with previous renal artery stenting, insomnia,NEUROPATHY, stroke 05/03/21-left side weakness, migraines, not using CPAP currently, diet control diabetic, rt cartoid artery 80% blockage, "small arteries" Last Myocardial Infarction Date:: 2014 History of Any Multi-Drug Resistant Organisms: VRE Year Discovered:: 04/24/24 MDRO Source:: BLOOD Past Surgical History: Coronary Bypass/CABG, Heart Catheterization Additional Past Surgical History / Comment(s): Previous PTCA of the lower rt extremity with stenting, LT ILIAC ARTERY STENT. bilateral renal artery stenting, balloon angioplasty of coronary artery, open heart surgery 02/2015-double bypass, Left AKA 2023, Right great toe partial amputation Past Anesthesia/Blood Transfusion Reactions: No Reported Reaction Past Psychological History: Anxiety, Depression Smoking Status: Former smoker Past Alcohol Use History: None Reported Additional Past Alcohol Use History / Comment(s): quit smoking 30 yrs ago, smoked for 20 yrs. pt states he smoked occasionally this year but quit when he started having frequent hospital admissions Past Drug Use History: Marijuana Additional Drug Use History / Comment(s): daily - Past Family History Brother(s) Family Medical History: Myocardial Infarction (OR) Father Family Medical History: CVA/TIA, Myocardial Infarction (OR) Additional Family Medical History / Comment(s): ANEURYSM Mother Family Medical History: CVA/TIA, Deep Vein Thrombosis (DVT), Myocardial Infarction (OR) Sister(s) Family Medical History: Cancer, Myocardial Infarction (OR) Additional Family Medical History / Comment(s): 3 sisters- [place] Medications and Allergies Home Medications Medication Instructions Recorded Confirmed Type Tamsulosin [Flomax] 0.4 mg PO DAILY@0907/03/21 05/25/24 History Cholecalciferol [Vitamin D3 (25 25 mcg PO DAILY@0910/22/21 05/25/24 History Mcg = 1000 Iu)] Metoprolol Succinate (ER) [Toprol 50 mg PO HS@209901/22/24 05/25/24 History XL] Aspirin EC [Ecotrin Low Dose] 81 mg PO DAILY@89903/11/24 05/25/24 History Cyanocobalamin (Vitamin B-12) 1,000 mcg PO DAILY@89903/11/24 05/25/24 History [Vitamin B-12] Amoxic-Pot Clav 875-125Mg 1 tab PO Q12HR 05/25/24 05/25/24 History [Augmentin 875-125] Atorvastatin [Lipitor] 80 mg PO HS@209905/25/24 05/25/24 History Docusate [Colace] 100 mg PO BID@0900,209905/25/24 05/25/24 History Fluconazole [Diflucan] 100 mg PO DAILY@89905/25/24 05/25/24 History Gabapentin 600 mg PO TID@899,1299,209905/25/24 05/25/24 History HYDROcodone/APAP 5-325MG [[place] 1 tab PO Q6HR PRN 05/25/24 05/25/24 History 5-325] Heparin Sodium,Porcine (1 ml) 5,000 unit SQ BID@899,209905/25/24 05/25/24 History [Heparin Sodium] INSULIN ASPART (NovoLOG) [NovoLOG See Protocol SQ ACHS@,,,05/25/24 05/25/24 History (formulary)] Isosorbide Mononitrate ER [Imdur] 60 mg PO DAILY@89905/25/24 05/25/24 History Lactose-Reduced Food [Ensure Plus] 237 ml PO BID@899,199905/25/24 05/25/24 History Melatonin 5 mg PO HS@209905/25/24 05/25/24 History Omeprazole 20 mg PO DAILY@0605/25/24 05/25/24 History Ticagrelor [Brilinta] 90 mg PO BID@00,209905/25/24 05/25/24 History Allergies Allergy/AdvReac Type Severity Reaction Status Date / Time No Known Allergies Allergy Verified 05/25/24 20:12 Physical Exam Vitals: Vital Signs Temp Pulse Pulse Resp BP BP BP 05/26/24 08:00 97.7 F 89 16 100/69 05/26/24 04:15 107 H 17 129/69 05/25/24 23:42 124 H 17 132/56 05/25/24 22:38 98.5 F 85 17 105/74 05/25/24 21:34 114 H 16 116/84 05/25/24 21:00 102 H 16 125/92 05/25/24 20:18 119 H 16 98/56 05/25/24 19:45 96 16 112/76 05/25/24 19:29 98.9 F 89 18 96/69 05/25/24 19:11 115 H 16 75/58 05/25/24 18:33 98 F 100 18 84/65 05/25/24 15:56 98.6 F 96 18 98/61 Pulse Ox 05/26/24 08:00 100 05/26/24 04:15 100 05/25/24 23:42 94 L 05/25/24 22:38 99 05/25/24 21:34 92 L 05/25/24 21:00 96 05/25/24 20:18 98 05/25/24 19:45 100 05/25/24 19:29 100 05/25/24 19:11 100 05/25/24 18:33 95 05/25/24 15:56 96 Intake and Output 05/25/24 05/26/24 05/26/24 22:59 06:59 14:59 Intake Total 240 240 Balance 240 240 Intake: Oral 240 240 Other: Voiding Method Urinal Urinal # Voids 1 Weight 72.575 kg GENERAL DESCRIPTION: Elderly male lying in bed, no distress. No tachypnea or accessory muscle of respiration use. HEENT: Shows Pallor , no scleral icterus. Oral mucous membrane is dry. No pharyngeal erythema or thrush NECK: Trachea central, no thyromegaly. LUNGS: Unlabored breathing. Clear to auscultation anteriorly. No wheeze or crackle. HEART: S1, S2, regular rate and rhythm. No loud murmur ABDOMEN: Soft, no tenderness , guarding or rigidity, no organomegaly EXTREMITIES: Right foot with multiple areas of ulceration especially involving the big toe with stitches still intact with slough tissue swelling and drainage SKIN: No rash, no masses palpable. NEUROLOGICAL: The patient is awake, alert, oriented x3, mood and affect normal. Results CBC & Chem 7: 05/27/24 06:22 05/26/24 23:15 Labs: Abnormal Lab Results - Last 24 Hours (Table) 05/25/24 05/25/24 05/25/24 Range/Units 17:52 17:52 17:52 WBC 18.2 H (3.8-10.6) k/uL RBC 3.20 L (4.30-5.90) m/uL Hgb 8.6 L (13.0-17.5) gm/dL Hct 25.7 L (39.0-53.0) % RDW 20.7 H (11.5-15.5) % Neutrophils # 15.9 H (1.3-7.7) k/uL Sodium 136 L (137-145) mmol/L Chloride (98-107) mmol/L Carbon Dioxide (22-30) mmol/L Creatinine (0.66-1.25) mg/dL Glucose 145 H (74-99) mg/dL POC Glucose (mg/dL) (70-110) mg/dL Plasma Lactic Acid Mike 2.8 H* (0.7-2.0) mmol/L Calcium (8.4-10.2) mg/dL Total Protein 6.1 L (6.3-8.2) g/dL Albumin 2.8 L (3.5-5.0) g/dL 05/25/24 05/25/24 05/26/24 Range/Units 20:29 23:35 02:54 WBC 16.7 H (3.8-10.6) k/uL RBC 2.80 L (4.30-5.90) m/uL Hgb 7.3 L (13.0-17.5) gm/dL Hct 22.9 L (39.0-53.0) % RDW 20.5 H (11.5-15.5) % Neutrophils # 14.4 H (1.3-7.7) k/uL Sodium (137-145) mmol/L Chloride (98-107) mmol/L Carbon Dioxide (22-30) mmol/L Creatinine (0.66-1.25) mg/dL Glucose (74-99) mg/dL POC Glucose (mg/dL) (70-110) mg/dL Plasma Lactic Acid Mike 2.5 H* 2.5 H* (0.7-2.0) mmol/L Calcium (8.4-10.2) mg/dL Total Protein (6.3-8.2) g/dL Albumin (3.5-5.0) g/dL 05/26/24 05/26/24 Range/Units 02:54 06:04 WBC (3.8-10.6) k/uL RBC (4.30-5.90) m/uL Hgb (13.0-17.5) gm/dL Hct (39.0-53.0) % RDW (11.5-15.5) % Neutrophils # (1.3-7.7) k/uL Sodium 136 L (137-145) mmol/L Chloride 109 H (98-107) mmol/L Carbon Dioxide 20 L (22-30) mmol/L Creatinine 0.64 L (0.66-1.25) mg/dL Glucose 169 H (74-99) mg/dL POC Glucose (mg/dL) 150 H (70-110) mg/dL Plasma Lactic Acid Mike (0.7-2.0) mmol/L Calcium 7.9 L (8.4-10.2) mg/dL Total Protein (6.3-8.2) g/dL Albumin (3.5-5.0) g/dL Assessment and Plan (1) Diabetic foot ulcer Current Visit: Yes Status: Acute Code(s): E11.621 - TYPE 2 DIABETES MELLITUS WITH FOOT ULCER; L97.509 - NON-PRESSURE CHRONIC ULCER OTH PRT UNSP FOOT W UNSP SEVERITY SNOMED Code(s): 212617726 (2) Cellulitis of right foot Current Visit: Yes Status: Acute Code(s): L03.115 - CELLULITIS OF RIGHT LOWER LIMB SNOMED Code(s): 25493292059981983 Plan: 1patient presented to hospital with worsening wound to the right foot in this patient who did have a history of diabetes mellitus also with a history of PAD and recent left yuvnq-ejj-ycqr amputation now concerning for worsening wound and cellulitis we will need to cover for both gram-positive as well as gram- negative pathogen 2-vancomycin pharmacy to dose target trough of 15 while watching kidney function and Vanco trough closely and will switch Rocephin to cefepime for better gram-negative coverage. 3local care to continue per the vascular and wound care team and await further recommendation regarding debridement versus amputation Question concern answered We will follow on clinical condition and cultures to further adjust medication if needed Thank you for this consultation we will follow the patient along with you Dictation was produced using [employer] dictation software. please excuse any gramm atical, word or spelling errors. Time with Patient: Greater than 30
[2024-05-27 07:28] LABS: African American GFR (CKD) >90 (>60 ml/min/1.73 sqM); Anion Gap 6 mmol/L; Blood Urea Nitrogen 7 mg/dL (9-20); Calcium 8.2 mg/dL (8.4-10.2); Carbon Dioxide 20 mmol/L (22-30); Chloride 112 mmol/L (98-107); Glucose 129 mg/dL (74-99); Non-African American GFR(CKD) >90 (>60 ml/min/1.73 sqM); Potassium 4.1 mmol/L (3.5-5.1); Sodium 138 mmol/L (137-145)
[2024-05-27] MEDS: FLUCONAZOLE 100 MG TAB PO SCH (08:52)
[2024-05-27] MEDS: ISOSORBIDE MONONITRATE ER 60 MG TAB.ER.24H PO SCH (08:52)
--- NOTE | 2024-05-27 10:37 | P.CONS ---
History of Present Illness - Reason for Consult Consult date: 05/27/24 wound care - History of Present Illness This is a 68-year-old -[place] male well-known to the wound care center being followed for nonhealing ulceration to the right lower extremity. Patient is being seen on 3 S. for a stage II pressure ulcer to the right buttocks. Patient is currently going to be transferred for a second opinion on his right lower extremity which continues to have nonhealing ulcerations and sero sanguineous drainage. Patient has not been seen in the wound care center since April 20. Patient stated that he had followed up with Ranul[facility] for second opinion at that time and was not happy with the options that he was given. Wound care center was utilizing absorptive silver to the right lower extremity at that time. Patient has a stage II pressure ulcer to the right buttocks with significant amount of slough and nonviable tissue present. Ulceration measures approximately 4 x 3 x 0.2 cm wound edges are attached to the wound base there is no tunneling or undermining noted. Review Of Systems: Constitutional: No fever, no chills, no night sweats. No weight change. No weakness, fatigue or lethargy. No daytime sleepiness. Integumentary:reports wounds, no lesions. No rash or pruritus. No unusual bruising. No change in hair or nails. Physical exam: General Appearance: Alert, cooperative, no distress, appears stated age. Skin: See HPI all other Skin color, texture, tugor normal, no rashes or lesions. Neurologic: Alert oriented x3 Assessment: 1. 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 Stage II pressure ulcer right buttocks 3. Diabetic foot ulcer 4. Diabetes with skin ulceration Plan: 1. Right foot lower extremity ulceration patient is planning to be transferred for second opinion. Right buttocks ulceration apply honey gel and bordered foam to the site change Friday. Utilize a air-filled cushion while sitting. Turn patient every 2 hours. Thank you for the consultation any questions please contact the wound care center DNP note has been reviewed and discussed with Dr. Thorpe and the impression and plan of care has been directed as dictated. Past Medical History Past Medical History: Coronary Artery Disease (CAD), Chest Pain / Angina, COPD, CVA/TIA, Diabetes Mellitus, Hyperlipidemia, Hypertension, Memory Impairment, Myocardial Infarction (NH), Prostate Disorder, Sleep Apnea/CPAP/BIPAP, Vascular Disorder Additional Past Medical History / Comment(s): Peripheral vascular disease, renal artery stenosis with previous renal artery stenting, insomnia,NEUROPATHY, stroke 05/03/21-left side weakness, migraines, not using CPAP currently, diet control diabetic, rt cartoid artery 80% blockage, "small arteries" Last Myocardial Infarction Date:: 2014 History of Any Multi-Drug Resistant Organisms: VRE Year Discovered:: 04/24/24 MDRO Source:: BLOOD Past Surgical History: Coronary Bypass/CABG, Heart Catheterization Additional Past Surgical History / Comment(s): Previous PTCA of the lower rt extremity with stenting, LT ILIAC ARTERY STENT. bilateral renal artery stenting, balloon angioplasty of coronary artery, open heart surgery 02/2015-double bypass, Left AKA 2023, Right great toe partial amputation Past Anesthesia/Blood Transfusion Reactions: No Reported Reaction Past Psychological History: Anxiety, Depression Smoking Status: Former smoker Past Alcohol Use History: None Reported Additional Past Alcohol Use History / Comment(s): quit smoking 30 yrs ago, smoked for 20 yrs. pt states he smoked occasionally this year but quit when he started having frequent hospital admissions Past Drug Use History: Marijuana Additional Drug Use History / Comment(s): daily - Past Family History Brother(s) Family Medical History: Myocardial Infarction (NH) Father Family Medical History: CVA/TIA, Myocardial Infarction (NH) Additional Family Medical History / Comment(s): ANEURYSM Mother Family Medical History: CVA/TIA, Deep Vein Thrombosis (DVT), Myocardial Infar ction (NH) Sister(s) Family Medical History: Cancer, Myocardial Infarction (NH) Additional Family Medical History / Comment(s): 3 sisters- NH Medications and Allergies Home Medications Medication Instructions Recorded Confirmed Type Tamsulosin [Flomax] 0.4 mg PO DAILY@0907/03/21 05/25/24 History Cholecalciferol [Vitamin D3 (25 25 mcg PO DAILY@89910/22/21 05/25/24 History Mcg = 1000 Iu)] Metoprolol Succinate (ER) [Toprol 50 mg PO HS@2100 01/22/24 05/25/24 History XL] Aspirin EC [Ecotrin Low Dose] 81 mg PO DAILY@0903/11/24 05/25/24 History Cyanocobalamin (Vitamin B-12) 1,000 mcg PO DAILY@0903/11/24 05/25/24 History [Vitamin B-12] Amoxic-Pot Clav 875-125Mg 1 tab PO Q12HR 05/25/24 05/25/24 History [Augmentin 875-125] Atorvastatin [Lipitor] 80 mg PO HS@209905/25/24 05/25/24 History Docusate [Colace] 100 mg PO BID@899,209905/25/24 05/25/24 History Fluconazole [Diflucan] 100 mg PO DAILY@89905/25/24 05/25/24 History Gabapentin 600 mg PO TID@00,1300,209905/25/24 05/25/24 History HYDROcodone/APAP 5-325MG [[place] 1 tab PO Q6HR PRN 05/25/24 05/25/24 History 5-325] Heparin Sodium,Porcine (1 ml) 5,000 unit SQ BID@899,209905/25/24 05/25/24 History [Heparin Sodium] INSULIN ASPART (NovoLOG) [NovoLOG See Protocol SQ ACHS@,,,05/25/24 05/25/24 History (formulary)] Isosorbide Mononitrate ER [Imdur] 60 mg PO DAILY@89905/25/24 05/25/24 History Lactose-Reduced Food [Ensure Plus] 237 ml PO BID@09,199905/25/24 05/25/24 History Melatonin 5 mg PO HS@209905/25/24 05/25/24 History Omeprazole 20 mg PO DAILY@0605/25/24 05/25/24 History Ticagrelor [Brilinta] 90 mg PO BID@0900,209905/25/24 05/25/24 History Allergies Allergy/AdvReac Type Severity Reaction Status Date / Time No Known Allergies Allergy Verified 05/25/24 20:12 Physical Exam Vitals: Vital Signs Temp Pulse Resp BP BP Pulse Ox 05/27/24 08:32 98.1 F 92 20 103/68 100 05/27/24 04:00 98 16 126/68 98 05/27/24 02:00 18 05/26/24 23:48 101 H 16 108/69 100 05/26/24 20:00 97.9 F 114 H 18 94/68 100 05/26/24 15:41 98.0 F 104 H 18 90/57 99 05/26/24 12:52 98 18 05/26/24 12:00 98.0 F 98 18 98/64 97 Intake and Output 05/26/24 05/27/24 05/27/24 22:59 06:59 14:59 Intake Total 240 0 Output Total 200 210 750 Balance 40 -210 -750 Intake: Oral 240 0 Output: Urine 200 210 750 Other: Voiding Method Urinal Urinal Bedside Commode Diaper Diaper Urinal Diaper # Voids 2 # Bowel Movements 0 Weight 72.5 kg Results CBC & Chem 7: 05/27/24 06:22 05/27/24 06:22 Labs: Abnormal Lab Results - Last 24 Hours (Table) 05/26/24 05/26/24 05/26/24 Range/Units 11:47 16:34 20:04 WBC (3.8-10.6) k/uL RBC (4.30-5.90) m/uL Hgb (13.0-17.5) gm/dL Hct (39.0-53.0) % MCHC (31.0-37.0) g/dL RDW (11.5-15.5) % Plt Count (150-450) k/uL Neutrophils # (1.3-7.7) k/uL Sodium (137-145) mmol/L Chloride (98-107) mmol/L Carbon Dioxide (22-30) mmol/L BUN (9-20) mg/dL Creatinine (0.66-1.25) mg/dL Glucose (74-99) mg/dL POC Glucose (mg/dL) 149 H 169 H 140 H (70-110) mg/dL Calcium (8.4-10.2) mg/dL 05/26/24 05/27/24 05/27/24 Range/Units 23:15 06:07 06:22 WBC 13.8 H (3.8-10.6) k/uL RBC 2.88 L (4.30-5.90) m/uL Hgb 7.4 L (13.0-17.5) gm/dL Hct 24.4 L (39.0-53.0) % MCHC 30.2 L (31.0-37.0) g/dL RDW 20.6 H (11.5-15.5) % Plt Count 547 H (150-450) k/uL Neutrophils # 11.8 H (1.3-7.7) k/uL Sodium 136 L (137-145) mmol/L Chloride 112 H (98-107) mmol/L Carbon Dioxide 18 L (22-30) mmol/L BUN 8 L (9-20) mg/dL Creatinine 0.65 L (0.66-1.25) mg/dL Glucose 156 H (74-99) mg/dL POC Glucose (mg/dL) 140 H (70-110) mg/dL Calcium 8.0 L (8.4-10.2) mg/dL 05/27/24 Range/Units 06:22 WBC (3.8-10.6) k/uL RBC (4.30-5.90) m/uL Hgb (13.0-17.5) gm/dL Hct (39.0-53.0) % MCHC (31.0-37.0) g/dL RDW (11.5-15.5) % Plt Count (150-450) k/uL Neutrophils # (1.3-7.7) k/uL Sodium (137-145) mmol/L Chloride 112 H (98-107) mmol/L Carbon Dioxide 20 L (22-30) mmol/L BUN 7 L (9-20) mg/dL Creatinine (0.66-1.25) mg/dL Glucose 129 H (74-99) mg/dL POC Glucose (mg/dL) (70-110) mg/dL Calcium 8.2 L (8.4-10.2) mg/dL Microbiology - Last 24 Hours (Table) 05/25/24 17:52 Blood Culture - Preliminary Blood Assessment and Plan (1) Atherosclerosis of right lower extremity with ulceration of midfoot Current Visit: Yes Status: Acute Code(s): I70.234 - ATHSCL MENOMINEE ART OF RIGHT LEG W ULCER OF HEEL AND MIDFOOT SNOMED Code(s): 01403991 (2) Atherosclerosis of right lower extremity with ulceration Current Visit: Yes Status: Acute Code(s): I70.239 - ATHSCL MENOMINEE ARTERIES OF RIGHT LEG W ULCER OF UNSP SITE SNOMED Code(s): 1307230152 (3) Non-pressure chronic ulcer of other part of right foot with necrosis of bone Current Visit: Yes Status: Acute Code(s): L97.514 - NON-PRS CHRONIC ULCER OTH PRT RIGHT FOOT W NECROSIS OF BONE SNOMED Code(s): 67486861135642493 (4) Stage II pressure ulcer of right buttock Current Visit: Yes Status: Acute Code(s): L89.312 - PRESSURE ULCER OF RIGHT BUTTOCK, STAGE 2 SNOMED Code(s): 48191745393236 (5) Type 2 diabetes mellitus with foot ulcer Current Visit: Yes Status: Acute Code(s): E11.621 - TYPE 2 DIABETES MELLITUS WITH FOOT ULCER; L97.509 - NON-PRESSURE CHRONIC ULCER OTH PRT UNSP FOOT W UNSP SEVERITY SNOMED Code(s): 6991135160985 (6) Type 2 diabetes mellitus with other skin ulcer Current Visit: Yes Status: Acute Code(s): E11.622 - TYPE 2 DIABETES MELLITUS WITH OTHER SKIN ULCER; L98.499 - NON-PRESSURE CHRONIC ULCER OF SKIN OF SITES W UNSP SEVERITY SNOMED Code(s): 508083142753820
--- NOTE | 2024-05-27 11:22 | P.PN ---
Subjective Progress Note Date: 05/27/24 Principal diagnosis: Peripheral arterial disease, chronic right lower extremity wounds Patient is seen and examined today as a follow-up. He states that he does not want an amputation and he wants a second opinion and would like to be transferred to a another hospital with a vascular surgeon. Objective - Vital Signs Vital signs: Vital Signs Temp 98.1 F 05/27/24 08:32 Pulse 92 05/27/24 08:32 Resp 20 05/27/24 08:32 BP 103/68 05/27/24 08:32 Pulse Ox 100 05/27/24 08:32 FiO2 Intake & Output 05/26/24 05/27/24 05/27/24 18:59 06:59 18:59 Intake Total 2000 0 Output Total 410 300 Balance 1999410 -300 Weight 72.5 kg Intake: Intake, IV Titration 1340 Amount Sodium Chloride 0.9% 1, 1040 000 ml @ 130 mls/hr IV . Q7H42M [facility] Rx#:[id number] Vancomycin 1,250 mg In 250 Sodium Chloride 0.9% 250 ml @ 125 mls/hr IVPB Q12H [facility] Rx#:[id number] cefTRIAXone 1 gm In 50 Sodium Chloride 0.9% 50 ml @ 100 mls/hr IVPB Q12HR@0600,1800 [facility] Rx#: [id number] Oral 660 0 Output: Urine 410 300 Other: Voiding Method Urinal Urinal Diaper # Bowel Movements 0 - Exam General appearance: The patient is alert, oriented, appears in no acute distress. HET: Head is normocephalic and atraumatic. Pupils are equal and reactive. Neck: Supple. Heart: Regular. Lungs: Equal expansion, normal respiratory effort. Abdomen: Soft, nontender, nondistended. Extremities: Left AKA surgical site well-approximated with jeffrey. Warm to the touch, no erythema or drainage. Right lower extremity +2 pitting edema, right foot cool to the touch. Nonpalpable pulses. Great toe with sutures in place. Multiple noninfected ulcers to dorsal aspect of foot and along the arredondo. Neurological: No focal deficits. - Labs CBC & Chem 7: 05/27/24 06:22 05/27/24 06:22 Labs: Abnormal Lab Results - Last 24 Hours (Table) 05/26/24 05/26/24 05/26/24 Range/Units 11:47 16:34 20:04 WBC (3.8-10.6) k/uL RBC (4.30-5.90) m/uL Hgb (13.0-17.5) gm/dL Hct (39.0-53.0) % MCHC (31.0-37.0) g/dL RDW (11.5-15.5) % Plt Count (150-450) k/uL Neutrophils # (1.3-7.7) k/uL Sodium (137-145) mmol/L Chloride (98-107) mmol/L Carbon Dioxide (22-30) mmol/L BUN (9-20) mg/dL Creatinine (0.66-1.25) mg/dL Glucose (74-99) mg/dL POC Glucose (mg/dL) 149 H 169 H 140 H (70-110) mg/dL Calcium (8.4-10.2) mg/dL 05/26/24 05/27/24 05/27/24 Range/Units 23:15 06:07 06:22 WBC 13.8 H (3.8-10.6) k/uL RBC 2.88 L (4.30-5.90) m/uL Hgb 7.4 L (13.0-17.5) gm/dL Hct 24.4 L (39.0-53.0) % MCHC 30.2 L (31.0-37.0) g/dL RDW 20.6 H (11.5-15.5) % Plt Count 547 H (150-450) k/uL Neutrophils # 11.8 H (1.3-7.7) k/uL Sodium 136 L (137-145) mmol/L Chloride 112 H (98-107) mmol/L Carbon Dioxide 18 L (22-30) mmol/L BUN 8 L (9-20) mg/dL Creatinine 0.65 L (0.66-1.25) mg/dL Glucose 156 H (74-99) mg/dL POC Glucose (mg/dL) 140 H (70-110) mg/dL Calcium 8.0 L (8.4-10.2) mg/dL 05/27/24 Range/Units 06:22 WBC (3.8-10.6) k/uL RBC (4.30-5.90) m/uL Hgb (13.0-17.5) gm/dL Hct (39.0-53.0) % MCHC (31.0-37.0) g/dL RDW (11.5-15.5) % Plt Count (150-450) k/uL Neutrophils # (1.3-7.7) k/uL Sodium (137-145) mmol/L Chloride 112 H (98-107) mmol/L Carbon Dioxide 20 L (22-30) mmol/L BUN 7 L (9-20) mg/dL Creatinine (0.66-1.25) mg/dL Glucose 129 H (74-99) mg/dL POC Glucose (mg/dL) (70-110) mg/dL Calcium 8.2 L (8.4-10.2) mg/dL Microbiology - Last 24 Hours (Table) 05/25/24 17:52 Blood Culture - Preliminary Blood Assessment and Plan Assessment: 1. Chronic right lower extremity wounds 2. Severe peripheral arterial disease with chronic lower extremity ischemia 3. Diabetes mellitus 4. Recent left AKA and right great toe partial amputation Plan: 1. Continue IV antibiotics per recommendation from infectious disease 2. Continue local wound care 3 Consult wound care 4. Recommended right [id number] amputation, patient declines any amputation. No plans on surgical debridement. 5. I do not believe patient is a candidate for revascularization due to severity of peripheral arterial disease with previous revascularization. Can consider transfer to tertiary center for second opinion from vascular surgery for possible revascularization. This was discussed with the primary medical team. Thank you for this consultation. The impression and plan of care has been dictated as directed. I performed a history and examination of this patient, discussed the same with the dictator. I agree with the dictator's note ,documented as a scribe. Any additional findings or plans will be noted.
[2024-05-27] MEDS ORDERED: Magnesium Replacement Protocol 1 EACH MISC MISCELLANE PRN (11:38)
[2024-05-27] MEDS: MAGNESIUM SULFATE-D5W PMX 1 GM in DEXTROSE/WATER 1 100ML.BAG IVPB ONE (11:48)
[2024-05-27 12:18] LABS: Glucose,Whole Blood 163 mg/dL (70-110)
[2024-05-27] MEDS: METOPROLOL SUCCINATE (ER) 50 MG TAB.ER.24H PO SCH (12:42)
[2024-05-27] MEDS: FUROSEMIDE 20 MG TAB PO SCH (12:42)
[2024-05-27] MEDS: DAPAGLIFLOZIN PROPANEDIOL 10 MG TABLET PO SCH (12:42)
--- NOTE | 2024-05-27 14:13 | P.CRDCN ---
History of Present Illness History of present illness: HISTORY OF PRESENT ILLNESS: This is a 68-year-old male with a past medical history significant for congestive heart failure, peripheral vascular disease, left AKA, carotid stenosis with previous endarterectomy, coronary artery disease with previous CABG, CVA, hypertension, and hyperlipidemia. Patient follows in the office with Dr. Felder. We have been asked to see the patient in consultation for ventricular tachycardia. Patient examined at the bedside. Patient is admitted to the [facility] secondary to right lower extremity wound. He has been evaluated by vascular surgery with recommendations for amputation. However patient is declining and is requesting a second opinion at this time. Patient denies any chest pain or pressure. He denies any shortness of breath. Telemetry reviewed with episodes of ventricular tachycardia. The patient does report feeling some palpitations. DIAGNOSTICS: - EKG reveals sinus tachycardia. Heart rate 114. - Chest xray negative for acute process - Laboratory data: WBC 13.8. Hemoglobin 7.4. Platelet count 547. Sodium 138. Potassium 4.1. BUN 7. Creatinine 0.70. - Current home cardiac medications include aspirin 81 mg daily, Lipitor 80 mg at night, Imdur 60 mg daily, metoprolol succinate 50 mg at night, Brilinta 90 mg twice a day - Most recent echocardiogram obtained in April 2024 reveals ejection fraction 25 to 30%, trace aortic regurgitation, trace tricuspid regurgitation and trace mitral regurgitation - Cardiac catheterization history: April 2022 revealing 40% mid LAD lesion, left main distal 40% lesion, circumflex is totally occluded but the vein graft to the circumflex is widely patent with good flow. REVIEW OF SYSTEMS: At the time of my exam: CONSTITUTIONAL: Denies fever or chills. HEENT: Denies blurred vision, vision changes, or eye pain. Denies hemoptysis CARDIOVASCULAR: Denies chest pain. Denies orthopnea. Denies PND. Denies palpitations RESPIRATORY: Denies shortness of breath. GASTROINTESTINAL: Denies abdominal pain. Denies nausea or vomiting. HEMATOLOGIC: Denies bleeding disorders. GENITOURINARY: Denies any blood in urine. SKIN: Denies pruitis. Denies rash. PHYSICAL EXAM: VITAL SIGNS: Reviewed. GENERAL: Well-developed in no acute distress. HEENT: Head is normocephalic. Pupils are equal, round. Sclerae anicteric. Mucous membranes of the mouth are moist. Neck supple. No JVD or thyromegaly LUNGS: Respirations even and unlabored. Lungs with a few crackles at the bilateral bases. HEART: Regular rate and rhythm. S1 and S2 heard. ABDOMEN: Soft. Nondistended. Nontender. EXTREMITIES: Normal range of motion. No clubbing or cyanosis. Peripheral pulses intact. Left AKA. Right lower extremity with large gauze dressing noted. NEUROLOGIC: Awake and alert. Oriented x 3. ASSESSMENT: Severe peripheral arterial disease with chronic lower extremity ischemia and right lower extremity wounds Ventricular tachycardia Acute on chronic heart failure with reduced EF, mildly volume overloaded Ischemic cardiomyopathy, 25 to 30% Coronary artery disease with previous CABG in 2015 History of CVA History of carotid stenosis with previous endarterectomy Recent left [id number]-ixp-dyzp amputation and right great toe partial amputation Hypertension Hyperlipidemia Diabetes PLAN: Discontinue aspirin and Brilinta Discontinue Imdur Add Plavix 75 mg daily and Xarelto 2.5 mg twice a day Add Farxiga 10 mg daily Increase metoprolol to succinate to 50 mg twice a day Add Lasix 20 mg p.o. daily Add low-dose Entresto at 0.5 tab of 24-26mg BID Replace magnesium Continue to monitor electrolytes Continue telemetry monitoring Recommend eventual ICD implantation. However contraindicated at this time due to infectious process. Recommend LifeVest at discharge. Patient agreeable. Will arrange with case management tomorrow. Further recommendations pending patient course Nurse practitioner note has been reviewed by physician. Signing provider agrees with the documented findings, assessment, and plan of care documented by [employer] as a scribe. Past Medical History Past Medical History: Coronary Artery Disease (CAD), Chest Pain / Angina, COPD, CVA/TIA, Diabetes Mellitus, Hyperlipidemia, Hypertension, Memory Impairment, Myocardial Infarction (HI), Prostate Disorder, Sleep Apnea/CPAP/BIPAP, Vascular Disorder Additional Past Medical History / Comment(s): Peripheral vascular disease, renal artery stenosis with previous renal artery stenting, insomnia,NEUROPATHY, stroke 05/03/21-left side weakness, migraines, not using CPAP currently, diet control diabetic, 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 bilateral renal artery stenting, balloon angioplasty of coronary artery, open heart surgery 02/2015-double bypass, Left AKA 2023, Right great toe partial amputation Past Anesthesia/Blood Transfusion Reactions: No Reported Reaction Past Psychological History: Anxiety, Depression Smoking Status: Former smoker Past Alcohol Use History: None Reported Additional Past Alcohol Use History / Comment(s): quit smoking 30 yrs ago, smoked for 20 yrs. pt states he smoked occasionally this year but quit when he started having frequent hospital admissions Past Drug Use History: Marijuana Additional Drug Use History / Comment(s): daily - Past Family History Brother(s) Family Medical History: Myocardial Infarction (HI) Father Family Medical History: CVA/TIA, Myocardial Infarction (HI) Additional Family Medical History / Comment(s): ANEURYSM Mother Family Medical History: CVA/TIA, Deep Vein Thrombosis (DVT), Myocardial I nfarction (HI) Sister(s) Family Medical History: Cancer, Myocardial Infarction (HI) Additional Family Medical History / Comment(s): 3 sisters- HI Medications and Allergies Home Medications Medication Instructions Recorded Confirmed Type Tamsulosin [Flomax] 0.4 mg PO DAILY@89907/03/21 05/25/24 History Cholecalciferol [Vitamin D3 (25 25 mcg PO DAILY@89910/22/21 05/25/24 History Mcg = 1000 Iu)] Metoprolol Succinate (ER) [Toprol 50 mg PO HS@209901/22/24 05/25/24 History XL] Aspirin EC [Ecotrin Low Dose] 81 mg PO DAILY@89903/11/24 05/25/24 History Cyanocobalamin (Vitamin B-12) 1,000 mcg PO DAILY@89903/11/24 05/25/24 History [Vitamin B-12] Amoxic-Pot Clav 875-125Mg 1 tab PO Q12HR 05/25/24 05/25/24 History [Augmentin 875-125] Atorvastatin [Lipitor] 80 mg PO HS@209905/25/24 05/25/24 History Docusate [Colace] 100 mg PO BID@09,209905/25/24 05/25/24 History Fluconazole [Diflucan] 100 mg PO DAILY@89905/25/24 05/25/24 History Gabapentin 600 mg PO TID@0900,1300,209905/25/24 05/25/24 History HYDROcodone/APAP 5-325MG [Blunt 1 tab PO Q6HR PRN 05/25/24 05/25/24 History 5-325] Heparin Sodium,Porcine (1 ml) 5,000 unit SQ BID@899,209905/25/24 05/25/24 History [Heparin Sodium] INSULIN ASPART (NovoLOG) [NovoLOG See Protocol SQ ACHS@,,,05/25/24 05/25/24 History (formulary)] Isosorbide Mononitrate ER [Imdur] 60 mg PO DAILY@89905/25/24 05/25/24 History Lactose-Reduced Food [Ensure Plus] 237 ml PO BID@09,199905/25/24 05/25/24 History Melatonin 5 mg PO HS@209905/25/24 05/25/24 History Omeprazole 20 mg PO DAILY@0605/25/24 05/25/24 History Ticagrelor [Brilinta] 90 mg PO BID@0900,209905/25/24 05/25/24 History Allergies Allergy/AdvReac Type Severity Reaction Status Date / Time No Known Allergies Allergy Verified 05/25/24 20:12 Physical Exam Vitals: Vital Signs Temp Pulse Resp BP BP Pulse Ox 05/27/24 13:27 93 05/27/24 11:16 98.3 F 93 20 137/75 99 05/27/24 08:32 98.1 F 92 20 103/68 100 05/27/24 04:00 98 16 126/68 98 05/27/24 02:00 18 05/26/24 23:48 101 H 16 108/69 100 05/26/24 20:00 97.9 F 114 H 18 94/68 100 05/26/24 15:41 98.0 F 104 H 18 90/57 99 Intake and Output 05/26/24 05/27/24 05/27/24 22:59 06:59 14:59 Intake Total 240 0 Output Total 200 210 750 Balance 40 -210 -750 Intake: Oral 240 0 Output: Urine 200 210 750 Other: Voiding Method Urinal Urinal Bedside Commode Diaper Diaper Urinal # Voids 2 # Bowel Movements 0 Weight 72.5 kg Results 05/27/24 06:22 05/27/24 06:22 CBC 05/27/24 Range/Units 06:22 WBC 13.8 H (3.8-10.6) k/uL RBC 2.88 L (4.30-5.90) m/uL Hgb 7.4 L (13.0-17.5) gm/dL Hct 24.4 L (39.0-53.0) % Plt Count 547 H (150-450) k/uL Comprehensive Metabolic Panel 05/26/24 05/27/24 Range/Units 23:15 06:22 Sodium 136 L 138 (137-145) mmol/L Potassium 4.6 4.1 (3.5-5.1) mmol/L Chloride 112 H 112 H (98-107) mmol/L Carbon Dioxide 18 L 20 L (22-30) mmol/L BUN 8 L 7 L (9-20) mg/dL Creatinine 0.65 L 0.70 (0.66-1.25) mg/dL Glucose 156 H 129 H (74-99) mg/dL Calcium 8.0 L 8.2 L (8.4-10.2) mg/dL Current Medications Generic Name Dose Route Start Last Admin Trade Name Freq PRN Reason Stop Dose Admin Acetaminophen 650 mg 05/25/24 20:02 Acetaminophen Tab 325 Mg Tab PO Q6HR PRN Mild Pain or Fever > 100.5 Hydrocodone Bitart/Acetaminophen 1 each 05/25/24 20:46 05/27/24 12:45 Hydrocodone/Apap 5-325mg 1 Each Tab PO 1 each Q6HR PRN Administration Pain Atorvastatin Calcium 80 mg 05/25/24 21:00 05/26/24 20:42 Atorvastatin 80 Mg Tab PO 80 mg HS@2100 [facility] Administration Cholecalciferol 25 mcg 05/26/24 09:00 05/27/24 08:52 Cholecalciferol 25 Mcg (1000 Iu) Tablet PO 25 mcg DAILY@0900 [facility] Administration Clopidogrel Bisulfate 75 mg 05/28/24 09:00 Clopidogrel 75 Mg Tab PO DAILY [facility] Cyanocobalamin 1,000 mcg 05/26/24 09:00 05/27/24 08:52 Cyanocobalamin 500 Mcg Tab PO 1,000 mcg DAILY@0900 [facility] Administration Dapagliflozin 10 mg 05/27/24 12:35 05/27/24 12:42 Dapagliflozin Propanediol 10 Mg Tablet PO 10 mg DAILY [facility] Administration Dextrose/Water 25 ml 05/26/24 05:01 Dextrose 50% Syringe 50 Ml IVP PER PROTOCOL PRN Hypoglycemia Protocol Dextrose/Water 50 ml 05/26/24 05:01 Dextrose 50% Syringe 50 Ml IVP PER PROTOCOL PRN Hypoglycemia Protocol Docusate Sodium 100 mg 05/25/24 21:00 05/27/24 08:52 Docusate 100 Mg Cap PO 100 mg BID@0900,2100 [facility] Administration Fluconazole 100 mg 05/27/24 09:00 05/27/24 08:52 Fluconazole 100 Mg Tab PO 100 mg DAILY@0900 [facility] Administration Protocol Furosemide 20 mg 05/27/24 12:45 05/27/24 12:42 Furosemide 20 Mg Tab PO 20 mg DAILY [facility] Administration Gabapentin 600 mg 05/25/24 21:00 05/27/24 12:39 Gabapentin 300 Mg Cap PO 600 mg TID@0900,1300,2100 [facility] Administration Lactated Ringer's 1,000 mls @ 75 mls/hr 05/25/24 16:45 05/27/24 08:04 Lactated Ringers IV Not Given .[id number] [facility] Vancomycin HCl 1,250 mg/ 250 mls @ 125 mls/hr 05/26/24 06:00 05/27/24 06:20 Sodium Chloride IVPB 125 mls/hr Q12H [facility] Administration Cefepime HCl 2 gm/ Sodium 100 mls @ 25 mls/hr 05/26/24 22:00 05/27/24 06:20 Chloride IVPB 25 mls/hr Q8H [facility] Administration Protocol Insulin Aspart 0 unit 05/26/24 07:30 05/27/24 12:39 Insulin Aspart (Novolog) 100 Unit/Ml Vial SQ 1 unit ACHS [facility] Administration Protocol Melatonin 5 mg 05/25/24 21:00 05/26/24 20:41 Melatonin 5 Mg Tablet PO 5 mg HS@2100 [facility] Administration Metoprolol Succinate 50 mg 05/27/24 12:45 05/27/24 12:42 Metoprolol Succinate (Er) 50 Mg Tab.Er.24h PO 50 mg BID [facility] Administration Metronidazole 500 mg 05/26/24 22:00 05/27/24 08:52 Metronidazole 500 Mg Tab PO 500 mg TID [facility] Administration Protocol Miscellaneous Information 0 each 05/27/24 17:00 Vancomycin Trough Due 1 Each Misc MISCELLANE 05/27/24 17:01 DIRECTED ONE Miscellaneous Information 1 each 05/27/24 11:38 Magnesium Replacement Protocol 1 Each Misc MISCELLANE DAILY PRN Per Protocol Protocol Morphine Sulfate 4 mg 05/25/24 20:02 Morphine Sulfate 4 Mg/Ml Syringe IV Q4HR PRN Severe Pain (Scale 7 to 10) Naloxone HCl 0.2 mg 05/25/24 20:02 Naloxone 0.4 Mg/Ml 1 Ml Vial IV Q2M PRN Opioid Reversal Pantoprazole Sodium 40 mg 05/26/24 06:00 05/27/24 06:20 Pantoprazole 40 Mg Tablet PO 40 mg DAILY@0600 [facility] Administration Rivaroxaban 2.5 mg 05/27/24 21:00 Rivaroxaban 2.5 Mg Tablet PO BID [facility] Protocol Sacubitril/Valsartan 0.5 each 05/27/24 21:00 Sacubitril/Valsartan 24 Mg-26 Mg Tablet PO BID [facility] Tamsulosin HCl 0.4 mg 05/26/24 09:00 05/27/24 08:52 Tamsulosin 0.4 Mg Cap.Er.24h PO 0.4 mg DAILY@0900 [facility] Administration Intake and Output 05/26/24 05/27/24 05/27/24 22:59 06:59 14:59 Intake Total 240 0 Output Total 200 210 750 Balance 40 -210 -750 Intake: Oral 240 0 Output: Urine 200 210 750 Other: Voiding Method Urinal Urinal Bedside Commode Diaper Diaper Urinal # Voids 2 # Bowel Movements 0 Weight 72.5 kg 05/27/24 06:22 05/27/24 06:22
--- NOTE | 2024-05-27 14:25 | P.PN ---
Subjective Progress Note Date: 05/27/24 Principal diagnosis: Right diabetic foot ulcer and cellulitis Patient is a 68-year-old -[place] male with a past medical history significant for Coronary Artery Disease (CAD), Chest Pain / Angina, COPD, CVA/TIA, Diabetes Mellitus, Hyperlipidemia, Hypertension, Memory Impairment, Myocardial Infarction ([place]), Prostate Disorder, Sleep Apnea/CPAP/BIPAP, Vascular Disorder in this patient who recently did have left mdzku-hyv-kahq amputation and also debridement of the right big toe wound now being readmitted to the hospital with worsening right foot wound and cellulitis. On today's evaluation that is 05/27/2024,the patient remains to be afebrile, patient is on room air not requiring supplemental oxygen and denies any shortness of breath no chest pain or cough.Patient denies having any nausea or vomiting, no abdominal pain and no diarrhea, denies any worsening pain to the right foot wound. Patient white count is down to 13.8, creatinine 0.70 blood cultures currently pending Objective - Vital Signs Vital signs: Vital Signs Temp 98.3 F 05/27/24 11:16 Pulse 93 05/27/24 13:27 Resp 20 05/27/24 11:16 BP 137/75 05/27/24 11:16 Pulse Ox 99 05/27/24 11:16 FiO2 Intake & Output 05/26/24 05/27/24 05/27/24 18:59 06:59 18:59 Intake Total 1999 220 Output Total 410 1150 Balance 1999 410 -820 Weight 72.5 kg Intake: Intake, IV Titration 1340 Amount Sodium Chloride 0.9% 1, 1040 000 ml @ 130 mls/hr IV . Q7H42M [facility] Rx#:[id number] Vancomycin 1,250 mg In 250 Sodium Chloride 0.9% 250 ml @ 125 mls/hr IVPB Q12H [facility] Rx#:[id number] cefTRIAXone 1 gm In 50 Sodium Chloride 0.9% 50 ml @ 100 mls/hr IVPB Q12HR@0600,1800 [facility] Rx#: [id number] Oral 660 220 Output: Urine 410 1150 Other: Voiding Method Urinal Urinal Bedside Commode Diaper Urinal # Voids 2 # Bowel Movements 1 - Exam GENERAL DESCRIPTION: An elderly male lying in bed in no distress RESPIRATORY SYSTEM: Unlabored breathing , decreased breath sounds at bases HEART: S1 S2 regular rate and rhythm , ABDOMEN: Soft , no tenderness EXTREMITIES: Right foot wound is currently dressed minimal drainage - Labs CBC & Chem 7: 05/27/24 06:22 05/27/24 06:22 Labs: Abnormal Lab Results - Last 24 Hours (Table) 05/26/24 05/26/24 05/26/24 Range/Units 16:34 20:04 23:15 WBC (3.8-10.6) k/uL RBC (4.30-5.90) m/uL Hgb (13.0-17.5) gm/dL Hct (39.0-53.0) % MCHC (31.0-37.0) g/dL RDW (11.5-15.5) % Plt Count (150-450) k/uL Neutrophils # (1.3-7.7) k/uL Sodium 136 L (137-145) mmol/L Chloride 112 H (98-107) mmol/L Carbon Dioxide 18 L (22-30) mmol/L BUN 8 L (9-20) mg/dL Creatinine 0.65 L (0.66-1.25) mg/dL Glucose 156 H (74-99) mg/dL POC Glucose (mg/dL) 169 H 140 H (70-110) mg/dL Calcium 8.0 L (8.4-10.2) mg/dL 05/27/24 05/27/24 05/27/24 Range/Units 06:07 06:22 06:22 WBC 13.8 H (3.8-10.6) k/uL RBC 2.88 L (4.30-5.90) m/uL Hgb 7.4 L (13.0-17.5) gm/dL Hct 24.4 L (39.0-53.0) % MCHC 30.2 L (31.0-37.0) g/dL RDW 20.6 H (11.5-15.5) % Plt Count 547 H (150-450) k/uL Neutrophils # 11.8 H (1.3-7.7) k/uL Sodium (137-145) mmol/L Chloride 112 H (98-107) mmol/L Carbon Dioxide 20 L (22-30) mmol/L BUN 7 L (9-20) mg/dL Creatinine (0.66-1.25) mg/dL Glucose 129 H (74-99) mg/dL POC Glucose (mg/dL) 140 H (70-110) mg/dL Calcium 8.2 L (8.4-10.2) mg/dL 05/27/24 Range/Units 12:16 WBC (3.8-10.6) k/uL RBC (4.30-5.90) m/uL Hgb (13.0-17.5) gm/dL Hct (39.0-53.0) % MCHC (31.0-37.0) g/dL RDW (11.5-15.5) % Plt Count (150-450) k/uL Neutrophils # (1.3-7.7) k/uL Sodium (137-145) mmol/L Chloride (98-107) mmol/L Carbon Dioxide (22-30) mmol/L BUN (9-20) mg/dL Creatinine (0.66-1.25) mg/dL Glucose (74-99) mg/dL POC Glucose (mg/dL) 163 H (70-110) mg/dL Calcium (8.4-10.2) mg/dL Microbiology - Last 24 Hours (Table) 05/25/24 17:52 Blood Culture - Preliminary Blood Assessment and Plan (1) Diabetic foot ulcer Current Visit: Yes Status: Acute Code(s): E11.621 - TYPE 2 DIABETES MELLITUS WITH FOOT ULCER; L97.509 - NON-PRESSURE CHRONIC ULCER OTH PRT UNSP FOOT W UNSP SEVERITY SNOMED Code(s): 053934611 (2) Cellulitis of right foot Current Visit: Yes Status: Acute Code(s): L03.115 - CELLULITIS OF RIGHT LOWER LIMB SNOMED Code(s): 50563288858744304 Plan: 1patient presented to hospital with worsening wound to the right foot in this patient who did have a history of diabetes mellitus also with a history of PAD and recent left pvciq-qmd-gdxe amputation now concerning for worsening wound and cellulitis we will need to cover for both gram-positive as well as gram-negative pathogen 2-patient has been eval by vascular surgery recommending right gwdpm-vwv-oxcq amputation cardiology has been consulted for cardiac clearance. 3we will keep the patient on vancomycin pharmacy to dose and cefepime while waiting for the culture to follow with Dictation was produced using [employer] software. please excuse any grammatical, word or spelling errors. Time with Patient: Less than 30
[2024-05-27] MEDS: VANCOMYCIN TROUGH DUE 1 EACH MISC MISCELLANE ONE (16:31)
--- NOTE | 2024-05-27 16:45 | P.GSCN ---
History of Present Illness History of present illness: 70-year-old gentleman who came to the emergency room with a history of pain swelling and drainage of the right foot this patient had a partial big toe pressures potation done in the past patient also had a left above-knee amputation by Dr. Velez consulted for second opinion Medical history history of sleep apnea, diabetes mellitus, coronary artery disease, Patient was seen in his room chest few crackles the lung bases Abdomen soft nontender superior femoral popliteal not palpable has a wet gangrene of the right foot with foul odor smell with large of drainage foot and her right lower extremity is cold I agree with Dr. Velez is nonsalvageable foot patient will benefit above-knee amputation Past Medical History Past Medical History: Coronary Artery Disease (CAD), Chest Pain / Angina, COPD, CVA/TIA, Diabetes Mellitus, Hyperlipidemia, Hypertension, Memory Impairment, Myocardial Infarction ([place]), Prostate Disorder, Sleep Apnea/CPAP/BIPAP, Vascular Disorder Additional Past Medical History / Comment(s): Peripheral vascular disease, renal artery stenosis with previous renal artery stenting, insomnia,NEUROPATHY, stroke 05/03/21-left side weakness, migraines, not using CPAP currently, diet control diabetic, rt cartoid artery 80% blockage, "small arteries" Last Myocardial Infarction Date:: 2014 History of Any Multi-Drug Resistant Organisms: VRE Year Discovered:: 04/24/24 MDRO Source:: BLOOD Past Surgical History: Coronary Bypass/CABG, Heart Catheterization Additional Past Surgical History / Comment(s): Previous PTCA of the lower rt extremity with stenting, LT ILIAC ARTERY STENT. bilateral renal artery stenting, balloon angioplasty of coronary artery, open heart surgery 02/2015-double bypass, Left AKA 2023, Right great toe partial amputation Past Anesthesia/Blood Transfusion Reactions: No Reported Reaction Past Psychological History: Anxiety, Depression Smoking Status: Former smoker Past Alcohol Use History: None Reported Additional Past Alcohol Use History / Comment(s): quit smoking 30 yrs ago, smoked for 20 yrs. pt states he smoked occasionally this year but quit when he started having frequent hospital admissions Past Drug Use History: Marijuana Additional Drug Use History / Comment(s): daily - Past Family History Brother(s) Family Medical History: Myocardial Infarction ([place]) Father Family Medical History: CVA/TIA, Myocardial Infarction ([place]) Additional Family Medical History / Comment(s): ANEURYSM Mother Family Medical History: CVA/TIA, Deep Vein Thrombosis (DVT), Myocardial Infarction ([place]) Sister(s) Family Medical History: Cancer, Myocardial Infarction ([place]) Additional Family Medical History / Comment(s): 3 sisters- [place] Medications and Allergies Home Medications Medication Instructions Recorded Confirmed Type Tamsulosin [Flomax] 0.4 mg PO DAILY@89907/03/21 05/25/24 History Cholecalciferol [Vitamin D3 (25 25 mcg PO DAILY@89910/22/21 05/25/24 History Mcg = 1000 Iu)] Metoprolol Succinate (ER) [Toprol 50 mg PO HS@209901/22/24 05/25/24 History XL] Aspirin EC [Ecotrin Low Dose] 81 mg PO DAILY@89903/11/24 05/25/24 History Cyanocobalamin (Vitamin B-12) 1,000 mcg PO DAILY@89903/11/24 05/25/24 History [Vitamin B-12] Amoxic-Pot Clav 875-125Mg 1 tab PO Q12HR 05/25/24 05/25/24 History [Augmentin 875-125] Atorvastatin [Lipitor] 80 mg PO HS@209905/25/24 05/25/24 History Docusate [Colace] 100 mg PO BID@899,209905/25/24 05/25/24 History Fluconazole [Diflucan] 100 mg PO DAILY@89905/25/24 05/25/24 History Gabapentin 600 mg PO TID@0900,1300,209905/25/24 05/25/24 History HYDROcodone/APAP 5-325MG [[place] 1 tab PO Q6HR PRN 05/25/24 05/25/24 History 5-325] Heparin Sodium,Porcine (1 ml) 5,000 unit SQ BID@899,209905/25/24 05/25/24 History [Heparin Sodium] INSULIN ASPART (NovoLOG) [NovoLOG See Protocol SQ ACHS@,,,05/25/24 05/25/24 History (formulary)] Isosorbide Mononitrate ER [Imdur] 60 mg PO DAILY@89905/25/24 05/25/24 History Lactose-Reduced Food [Ensure Plus] 237 ml PO BID@899,199905/25/24 05/25/24 History Melatonin 5 mg PO HS@209905/25/24 05/25/24 History Omeprazole 20 mg PO DAILY@59905/25/24 05/25/24 History Ticagrelor [Brilinta] 90 mg PO BID@899,209905/25/24 05/25/24 History Allergies Allergy/AdvReac Type Severity Reaction Status Date / Time No Known Allergies Allergy Verified 05/25/24 20:12 Surgical - Exam Vital Signs Temp Pulse Resp BP Pulse Ox 98.6 F 96 18 98/61 96 05/25/24 15:56 05/25/24 15:56 05/25/24 15:56 05/25/24 15:56 05/25/24 15:56 Results - Labs 05/27/24 06:22 05/27/24 06:22 Abnormal Lab Results - Last 24 Hours (Table) 05/26/24 05/26/24 05/27/24 Range/Units 20:04 23:15 06:07 WBC (3.8-10.6) k/uL RBC (4.30-5.90) m/uL Hgb (13.0-17.5) gm/dL Hct (39.0-53.0) % MCHC (31.0-37.0) g/dL RDW (11.5-15.5) % Plt Count (150-450) k/uL Neutrophils # (1.3-7.7) k/uL Sodium 136 L (137-145) mmol/L Chloride 112 H (98-107) mmol/L Carbon Dioxide 18 L (22-30) mmol/L BUN 8 L (9-20) mg/dL Creatinine 0.65 L (0.66-1.25) mg/dL Glucose 156 H (74-99) mg/dL POC Glucose (mg/dL) 140 H 140 H (70-110) mg/dL Calcium 8.0 L (8.4-10.2) mg/dL 05/27/24 05/27/24 05/27/24 Range/Units 06:22 06:22 12:16 WBC 13.8 H (3.8-10.6) k/uL RBC 2.88 L (4.30-5.90) m/uL Hgb 7.4 L (13.0-17.5) gm/dL Hct 24.4 L (39.0-53.0) % MCHC 30.2 L (31.0-37.0) g/dL RDW 20.6 H (11.5-15.5) % Plt Count 547 H (150-450) k/uL Neutrophils # 11.8 H (1.3-7.7) k/uL Sodium (137-145) mmol/L Chloride 112 H (98-107) mmol/L Carbon Dioxide 20 L (22-30) mmol/L BUN 7 L (9-20) mg/dL Creatinine (0.66-1.25) mg/dL Glucose 129 H (74-99) mg/dL POC Glucose (mg/dL) 163 H (70-110) mg/dL Calcium 8.2 L (8.4-10.2) mg/dL Microbiology - Last 24 Hours (Table) 05/25/24 17:52 Blood Culture - Preliminary Blood Diabetes panel 05/26/24 05/27/24 Range/Units 23:15 06:22 Sodium 136 L 138 (137-145) mmol/L Potassium 4.6 4.1 (3.5-5.1) mmol/L Chloride 112 H 112 H (98-107) mmol/L Carbon Dioxide 18 L 20 L (22-30) mmol/L BUN 8 L 7 L (9-20) mg/dL Creatinine 0.65 L 0.70 (0.66-1.25) mg/dL Glucose 156 H 129 H (74-99) mg/dL Calcium 8.0 L 8.2 L (8.4-10.2) mg/dL Calcium panel 05/26/24 05/27/24 Range/Units 23:15 06:22 Calcium 8.0 L 8.2 L (8.4-10.2) mg/dL Pituitary panel 05/26/24 05/27/24 Range/Units 23:15 06:22 Sodium 136 L 138 (137-145) mmol/L Potassium 4.6 4.1 (3.5-5.1) mmol/L Chloride 112 H 112 H (98-107) mmol/L Carbon Dioxide 18 L 20 L (22-30) mmol/L BUN 8 L 7 L (9-20) mg/dL Creatinine 0.65 L 0.70 (0.66-1.25) mg/dL Glucose 156 H 129 H (74-99) mg/dL Calcium 8.0 L 8.2 L (8.4-10.2) mg/dL Adrenal panel 05/26/24 05/27/24 Range/Units 23:15 06:22 Sodium 136 L 138 (137-145) mmol/L Potassium 4.6 4.1 (3.5-5.1) mmol/L Chloride 112 H 112 H (98-107) mmol/L Carbon Dioxide 18 L 20 L (22-30) mmol/L BUN 8 L 7 L (9-20) mg/dL Creatinine 0.65 L 0.70 (0.66-1.25) mg/dL Glucose 156 H 129 H (74-99) mg/dL Calcium 8.0 L 8.2 L (8.4-10.2) mg/dL
[2024-05-27 16:55] LABS: Glucose,Whole Blood 110 mg/dL (70-110)
[2024-05-27 20:17] LABS: Glucose,Whole Blood 167 mg/dL (70-110)
[2024-05-27] MEDS: SACUBITRIL/VALSARTAN 24 MG-26 MG TABLET PO SCH (20:36)
[2024-05-27] MEDS: RIVAROXABAN 2.5 MG TABLET PO SCH (20:36)
--- NOTE | 2024-05-27 22:21 | PN ---
PROGRESS NOTE DATE OF SERVICE: 05/27/2024 SUBJECTIVE: This is a 68-year-old gentleman, who was admitted with right foot cellulitis and right foot wound, had severe peripheral vascular disease also. No chest pain. No palpitation. Currently, the patient is refusing amputation and requesting second opinion. The patient also had multiple PVCs and ventricular tachycardia about 40 beats also. PAST MEDICAL HISTORY: Reviewed. REVIEW OF SYSTEMS: A 14-point review of systems is negative. OBJECTIVE: VITAL SIGNS: Pulse is 93, blood pressure 137/70, respirations 20. CHEST: Clear to auscultation. CARDIOVASCULAR: S1, S2. ABDOMEN: Soft. EXTREMITIES: Right foot cellulitis present. LABORATORY DATA: Hemoglobin 7.4. ASSESSMENT: 1. Right foot cellulitis and failure of outpatient treatment. 2. Severe peripheral vascular disease. 3. Status post recent left above-knee amputation. 4. Nonsustained ventricular tachycardia. 5. Anemia. 6. Chronic obstructive pulmonary disease. 7. Hypertension. 8. Hyperlipidemia. 9. Congestive heart failure with chronic systolic dysfunction, ejection fraction 25% to 30%. 10.Possible ischemic cardiomyopathy. 11.Symptomatic anemia, for transfusion. 12.Multiple medical issues. RECOMMENDATIONS: Recommend to continue current medications, continue symptomatic treatment. Otherwise, at this time, I recommend to check mag and the patient had a recent 2D echo with Doppler, which showed ejection fraction about 25% to 30%. In this 68-year-old gentleman, who presented with multiple complex medical issues, we will monitor the patient closely. I would recommend second opinion, otherwise monitor transfusion for symptomatic anemia. Otherwise, obtain magnesium. Cardiology consultation. Resume the home medications. Overall prognosis extremely guarded because of multiple complex medical issues and further recommendations to follow. Add beta blockers to the current regimen. The patient is on cefepime. Cultures are negative so far. Further recommendations to follow. MMODL / IJN: [id number] /
[2024-05-28 06:21] LABS: Glucose,Whole Blood 154 mg/dL (70-110)
[2024-05-28 08:24] LABS: Anisocytosis Moderate; Basophils % (A) 0 %; Eosinophils # (A) 0.1 k/uL (0-0.7); Eosinophils % (A) 0 %; HCT 23.3 % (39.0-53.0); HGB 7.1 gm/dL (13.0-17.5); Hypochromasia Marked; Lymphocytes # (A) 1.3 k/uL (1.0-4.8); Lymphocytes % (A) 10 %; MCH 25.5 pg (25.0-35.0); MCHC 30.6 g/dL (31.0-37.0); MCV 83.3 fL (80.0-100.0); Mean Platelet Volume 7.9; Microcytosis Slight; Monocytes # (A) 0.4 k/uL (0-1.0); Monocytes % (A) 3 %; Neutrophils # (A) 10.7 k/uL (1.3-7.7); Neutrophils % (A) 85 %; Platelet Count 603 k/uL (150-450); Poikilocytosis Slight; RDW 20.5 % (11.5-15.5); WBC 12.6 k/uL (3.8-10.6)
[2024-05-28] MEDS: CLOPIDOGREL 75 MG TAB PO SCH (08:25)
[2024-05-28 08:34] LABS: African American GFR (CKD) >90 (>60 ml/min/1.73 sqM); Anion Gap 6 mmol/L; Blood Urea Nitrogen 11 mg/dL (9-20); Calcium 7.9 mg/dL (8.4-10.2); Carbon Dioxide 19 mmol/L (22-30); Chloride 111 mmol/L (98-107); Glucose 145 mg/dL (74-99); Magnesium 1.9 mg/dL (1.6-2.3); Non-African American GFR(CKD) 87 (>60 ml/min/1.73 sqM); Potassium 3.9 mmol/L (3.5-5.1); Sodium 136 mmol/L (137-145)
--- NOTE | 2024-05-28 08:48 | P.PN ---
Subjective Progress Note Date: 05/28/24 Principal diagnosis: Peripheral arterial disease, chronic right lower extremity wounds Patient is seen and examined today as a follow-up. He is sitting up and having breakfast. He is without any complaints. He was seen yesterday by Dr. Felipe vascular surgery and gave a second opinion and agreed that patient would require wcsla-lut-ypdm amputation. Patient is now agreeable to proceed with right sfcxc-yjv-apxa amputation. Yesterday cardiology was consulted for LeeLizbeth tach and he was started on Xarelto, with multiple changes to his medications. Objective - Vital Signs Vital signs: Vital Signs Temp 98.3 F 05/28/24 03:56 Pulse 91 05/28/24 03:56 Resp 18 05/28/24 03:56 BP 128/67 05/28/24 03:56 Pulse Ox 100 05/28/24 03:56 FiO2 Intake & Output 05/27/24 05/28/24 05/28/24 18:59 06:59 18:59 Intake Total 460 Output Total 1150 1150 Balance -690 -1150 Weight 72.5 kg Intake: Oral 460 Output: Urine 1150 1150 Other: Voiding Method Bedside Commode Bedside Commode Urinal Urinal # Voids 2 # Bowel Movements 1 - Exam General appearance: The patient is alert, oriented, appears in no acute distress. HET: Head is normocephalic and atraumatic. Pupils are equal and reactive. Neck: Supple. Heart: Regular. Lungs: Equal expansion, normal respiratory effort. Abdomen: Soft, nontender, nondistended. Extremities: Left AKA surgical site well-approximated with jeffrey. Warm to the touch, no erythema or drainage. Right lower extremity +2 pitting edema, right foot cool to the touch. Nonpalpable pulses. Dressing clean dry and intact. Neurological: No focal deficits. - Labs CBC & Chem 7: 05/28/24 07:43 05/28/24 07:43 Labs: Abnormal Lab Results - Last 24 Hours (Table) 05/27/24 05/27/24 05/27/24 Range/Units 06:22 06:22 12:16 WBC 13.8 H (3.8-10.6) k/uL RBC 2.88 L (4.30-5.90) m/uL Hgb 7.4 L (13.0-17.5) gm/dL Hct 24.4 L (39.0-53.0) % MCHC 30.2 L (31.0-37.0) g/dL RDW 20.6 H (11.5-15.5) % Plt Count 547 H (150-450) k/uL Neutrophils # 11.8 H (1.3-7.7) k/uL Chloride 112 H (98-107) mmol/L Carbon Dioxide 20 L (22-30) mmol/L BUN 7 L (9-20) mg/dL Glucose 129 H (74-99) mg/dL POC Glucose (mg/dL) 163 H (70-110) mg/dL Calcium 8.2 L (8.4-10.2) mg/dL 05/27/24 05/28/24 Range/Units 20:16 06:20 WBC (3.8-10.6) k/uL RBC (4.30-5.90) m/uL Hgb (13.0-17.5) gm/dL Hct (39.0-53.0) % MCHC (31.0-37.0) g/dL RDW (11.5-15.5) % Plt Count (150-450) k/uL Neutrophils # (1.3-7.7) k/uL Chloride (98-107) mmol/L Carbon Dioxide (22-30) mmol/L BUN (9-20) mg/dL Glucose (74-99) mg/dL POC Glucose (mg/dL) 167 H 154 H (70-110) mg/dL Calcium (8.4-10.2) mg/dL Microbiology - Last 24 Hours (Table) 05/25/24 17:52 Blood Culture - Preliminary Blood Assessment and Plan Assessment: 1. Chronic right lower extremity wounds 2. Severe peripheral arterial disease with chronic lower extremity ischemia 3. Diabetes mellitus 4. 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 New onset ventricular tachycardia 6. Acute on chronic heart failure with reduced EF 7. Ischemic cardiomyopathy 8. Coronary artery disease with previous CABG Plan: 1. Continue IV antibiotics per recommendation from infectious disease 2. Continue local wound care per wound clinic recommendations 3 Recommended right flarr-rpn-dpox amputation. Patient is now agreeable to right rgqlu-dis-jznh amputation after getting second opinion. 4. Cardiology following, discussed with them would like cardiac clearance prior to surgery 5. Patient is tentatively scheduled for right mbbkl-qhu-lkqt amputation 06/01/2024 if medically cleared and cleared by cardiology 6. Hold Plavix now, continue Xarelto until Friday then hold 05/31/2024 and 06/01/2024 for MIKE Thank you for this consultation, we will continue to follow. The impression and plan of care has been dictated as directed. I performed a history and examination of this patient, discussed the same with the dictator. I agree with the dictator's note ,documented as a scribe. Any additional findings or plans will be noted.
[2024-05-28] MEDS: ASPIRIN 81 MG PO SCH (10:38)
[2024-05-28] MEDS: SODIUM FERRIC GLUCONAT-SUCROSE 125 MG in SODIUM CHLORIDE 0.9% 100 ML IVPB ONE (10:38)
[2024-05-28 12:01] LABS: Glucose,Whole Blood 152 mg/dL (70-110)
--- NOTE | 2024-05-28 12:38 | P.PN ---
Subjective HISTORY OF PRESENT ILLNESS: This is a 68-year-old male with a past medical history significant for congestive heart failure, peripheral vascular disease, left AKA, carotid stenosis with previous endarterectomy, coronary artery disease with previous CABG, CVA, hypertension, and hyperlipidemia. Patient follows in the office with Dr. Felder. We have been asked to see the patient in consultation for ventricular tachycardia. Patient examined at the bedside. Patient is admitted to the hospital secondary to right lower extremity wound. He has been evaluated by vascular surgery with recommendations for amputation. However patient is declining and is requesting a second opinion at this time. Patient denies any chest pain or pressure. He denies any shortness of breath. Telemetry reviewed with episodes of ventricular tachycardia. The patient does report feeling some palpitations. DIAGNOSTICS: - EKG reveals sinus tachycardia. Heart rate 114. - Chest xray negative for acute process - Laboratory data: WBC 13.8. Hemoglobin 7.4. Platelet count 547. Sodium 138. Potassium 4.1. BUN 7. Creatinine 0.70. - Current home cardiac medications include aspirin 81 mg daily, Lipitor 80 mg at night, Imdur 60 mg daily, metoprolol succinate 50 mg at night, Brilinta 90 mg twice a day - Most recent echocardiogram obtained in April 2024 reveals ejection fraction 25 to 30%, trace aortic regurgitation, trace tricuspid regurgitation and trace mitral regurgitation - Cardiac catheterization history: April 2022 revealing 40% mid LAD lesion, left main distal 40% lesion, circumflex is totally occluded but the vein graft to the circumflex is widely patent with good flow. 05/28/2024 Patient examined this morning at the bedside. Patient currently denies chest pain or pressure. He denies shortness of breath. No further episodes of ventricular tachycardia. He does continue to have occasional PVCs. Patient is scheduled for right AKA on 06/01/2024. PHYSICAL EXAM: VITAL SIGNS: Reviewed. GENERAL: Well-developed in no acute distress. HEENT: Head is normocephalic. Pupils are equal, round. Sclerae anicteric. Mucous membranes of the mouth are moist. Neck supple. No JVD or thyromegaly LUNGS: Respirations even and unlabored. Lungs with a few crackles at the bilateral bases. HEART: Regular rate and rhythm. S1 and S2 heard. ABDOMEN: Soft. Nondistended. Nontender. EXTREMITIES: Normal range of motion. No clubbing or cyanosis. Peripheral pulses intact. Left AKA. Right lower extremity with large gauze dressing noted. NEUROLOGIC: Awake and alert. Oriented x 3. ASSESSMENT: Severe peripheral arterial disease with chronic lower extremity ischemia and right lower extremity wounds Ventricular tachycardia Acute on chronic heart failure with reduced EF, currently euvolemic Ischemic cardiomyopathy, 25 to 30% Coronary artery disease with previous CABG in 2014 History of CVA History of carotid stenosis with previous endarterectomy Recent left oarsv-ckr-vfxb amputation and right great toe partial amputation Hypertension Hyperlipidemia Diabetes PLAN: Discontinue Plavix. Add aspirin 81 mg daily Give 1 dose of IV iron Increase metoprolol to 75 mg twice a day Discontinue Lasix Increase Entresto to 24-26 mg twice a day Continue telemetry monitoring Recommend eventual ICD implantation. However contraindicated at this time due to infectious process. Recommend LifeVest at discharge. Patient agreeable. Form signed and given to case management to arrange LifeVest. No absolute contraindications for patient to undergo right AKA on 06/01/2024 Further recommendations pending patient course Nurse practitioner note has been reviewed by physician. Signing provider agrees with the documented findings, assessment, and plan of care documented by [employer] as a scribe. Objective - Vital Signs Vital signs: Vital Signs Temp 98.3 F 05/28/24 03:56 Pulse 91 05/28/24 03:56 Resp 18 05/28/24 03:56 BP 128/67 05/28/24 03:56 Pulse Ox 100 05/28/24 03:56 FiO2 Intake & Output 05/27/24 05/28/24 05/28/24 18:59 06:59 18:59 Intake Total 460 Output Total 1150 1150 Balance -690 -1150 Weight 72.5 kg Intake: Oral 460 Output: Urine 1150 1150 Other: Voiding Method Bedside Commode Bedside Commode Urinal Urinal # Voids 2 # Bowel Movements 1 - Labs CBC & Chem 7: 05/28/24 07:43 05/28/24 07:43 Labs: Abnormal Lab Results - Last 24 Hours (Table) 05/27/24 05/27/24 05/28/24 Range/Units 12:16 20:16 06:20 POC Glucose (mg/dL) 163 H 167 H 154 H (70-110) mg/dL Microbiology - Last 24 Hours (Table) 05/25/24 17:52 Blood Culture - Preliminary Blood
--- NOTE | 2024-05-28 12:46 | P.PN ---
Subjective Progress Note Date: 05/28/24 Principal diagnosis: Right diabetic foot ulcer and cellulitis Patient is a 68-year-old -[place] male with a past medical history significant for Coronary Artery Disease (CAD), Chest Pain / Angina, COPD, CVA/TIA, Diabetes Mellitus, Hyperlipidemia, Hypertension, Memory Impairment, Myocardial Infarction ([place]), Prostate Disorder, Sleep Apnea/CPAP/BIPAP, Vascular Disorder in this patient who recently did have left yzfaa-qey-kbgs amputation and also debridement of the right big toe wound now being readmitted to the hospital with worsening right foot wound and cellulitis. On today's evaluation that is 05/28/2024, the patient continues to be afebrile, the patient is on room air and breathing comfortably, the Pt denies having any chest pain or cough, the patient denies having any abdominal pain no vomiting or any diarrhea, pain to the right foot is currently controlled. Patient white count is down to 12.6, creatinine 0.89 blood cultures are currently pending Objective - Vital Signs Vital signs: Vital Signs Temp 98.0 F 05/28/24 11:44 Pulse 83 05/28/24 11:44 Resp 20 05/28/24 11:44 BP 105/66 05/28/24 11:44 Pulse Ox 99 05/28/24 11:44 FiO2 Intake & Output 05/27/24 05/28/24 05/28/24 18:59 06:59 18:59 Intake Total 460 240 Output Total 1150 1150 200 Balance -690 -1150 40 Weight 72.5 kg 72.5 kg Intake: Oral 460 240 Output: Urine 1150 1150 200 Other: Voiding Method Bedside Commode Bedside Commode Bedside Commode Urinal Urinal Urinal # Voids 2 # Bowel Movements 1 - Exam GENERAL DESCRIPTION: An elderly male lying in bed in no distress RESPIRATORY SYSTEM: Unlabored breathing , decreased breath sounds at bases HEART: S1 S2 regular rate and rhythm , ABDOMEN: Soft , no tenderness EXTREMITIES: Right foot wound is currently dressed minimal drainage - Labs CBC & Chem 7: 05/28/24 07:43 05/28/24 07:43 Labs: Abnormal Lab Results - Last 24 Hours (Table) 05/27/24 05/28/24 05/28/24 Range/Units 20:16 06:20 07:43 WBC (3.8-10.6) k/uL RBC (4.30-5.90) m/uL Hgb (13.0-17.5) gm/dL Hct (39.0-53.0) % MCHC (31.0-37.0) g/dL RDW (11.5-15.5) % Plt Count (150-450) k/uL Neutrophils # (1.3-7.7) k/uL Sodium 136 L (137-145) mmol/L Chloride 111 H (98-107) mmol/L Carbon Dioxide 19 L (22-30) mmol/L Glucose 145 H (74-99) mg/dL POC Glucose (mg/dL) 167 H 154 H (70-110) mg/dL Calcium 7.9 L (8.4-10.2) mg/dL Crossmatch 05/28/24 05/28/24 05/28/24 Range/Units 07:43 11:42 11:56 WBC 12.6 H (3.8-10.6) k/uL RBC 2.80 L (4.30-5.90) m/uL Hgb 7.1 L (13.0-17.5) gm/dL Hct 23.3 L (39.0-53.0) % MCHC 30.6 L (31.0-37.0) g/dL RDW 20.5 H (11.5-15.5) % Plt Count 603 H (150-450) k/uL Neutrophils # 10.7 H (1.3-7.7) k/uL Sodium (137-145) mmol/L Chloride (98-107) mmol/L Carbon Dioxide (22-30) mmol/L Glucose (74-99) mg/dL POC Glucose (mg/dL) 152 H (70-110) mg/dL Calcium (8.4-10.2) mg/dL Crossmatch See Detail Microbiology - Last 24 Hours (Table) 05/25/24 17:52 Blood Culture - Preliminary Blood Assessment and Plan (1) Diabetic foot ulcer Current Visit: Yes Status: Acute Code(s): E11.621 - TYPE 2 DIABETES MELLITUS WITH FOOT ULCER; L97.509 - NON-PRESSURE CHRONIC ULCER OTH PRT UNSP FOOT W UNSP SEVERITY SNOMED Code(s): 159103988 (2) Cellulitis of right foot Current Visit: Yes Status: Acute Code(s): L03.115 - CELLULITIS OF RIGHT LOWER LIMB SNOMED Code(s): 10796801718145090 Plan: 1patient presented to hospital with worsening wound to the right foot in this patient who did have a history of diabetes mellitus also with a history of PAD and recent left kpfku-vvb-kxft amputation now concerning for worsening wound and cellulitis we will need to cover for both gram-positive as well as gram-negative pathogen 2-patient has been eval by vascular surgery recommending right vetop-aga-telm amputation apparent scheduled for next Friday 3patient to continue with vancomycin pharmacy to dose and cefepime while waiting for the definite surgical procedure Dictation was produced using [employer] dictation software. please excuse any grammatical, word or spelling errors. Time with Patient: Less than 30
--- NOTE | 2024-05-28 14:34 | PN ---
PROGRESS NOTE DATE OF SERVICE: 05/28/2024 SUBJECTIVE: This is a 68-year-old gentleman admitted with right foot cellulitis, cleared for surgery after a second opinion. No chest pain. No palpitation. OBJECTIVE: VITAL SIGNS: Pulse 81, blood pressure 90/50, respirations 20. CHEST: A few scattered rhonchi. ABDOMEN: Soft. NERVOUS SYSTEM: Nonfocal. LABORATORY DATA: WBC 12.2. Rest of the labs are noted. ASSESSMENT: 1. Right foot cellulitis and failure of outpatient treatment. 2. Severe peripheral vascular disease. 3. Status post recent left above-knee amputation. 4. Nonsustained ventricular tachycardia. 5. Anemia. 6. Chronic obstructive pulmonary disease. 7. Hypertension. 8. Hyperlipidemia. 9. Congestive heart failure with chronic systolic dysfunction, ejection fraction 25% to 30%. 10.Possible ischemic cardiomyopathy. 11.Multiple complex medical issues. RECOMMENDATIONS: Recommend to continue current management. Recommend repeat labs. Continue symptomatic treatment. Closely follow with Cardiology, Vascular Surgery. Further recommendations to follow. MMODL / IJN: [id number] /
[2024-05-28 16:25] LABS: Glucose,Whole Blood 210 mg/dL (70-110)
[2024-05-28 20:21] LABS: Glucose,Whole Blood 180 mg/dL (70-110)
[2024-05-28] MEDS: SACUBITRIL/VALSARTAN 24 MG-26 MG TABLET PO SCH (20:41)
[2024-05-28] MEDS: METOPROLOL SUCCINATE (ER) 25 MG TAB.ER.24H PO SCH (20:42)
[2024-05-29] MEDS: ACETAMINOPHEN TAB 325 MG TAB PO PRN (03:38)
[2024-05-29 06:21] LABS: Glucose,Whole Blood 146 mg/dL (70-110)
[2024-05-29 06:40] LABS: Anisocytosis Moderate; Basophils % (A) 0 %; Eosinophils # (A) 0.1 k/uL (0-0.7); Eosinophils % (A) 1 %; HCT 27.5 % (39.0-53.0); Hypochromasia Marked; Lymphocytes # (A) 1.6 k/uL (1.0-4.8); Lymphocytes % (A) 13 %; MCHC 31.8 g/dL (31.0-37.0); MCV 84.9 fL (80.0-100.0); Mean Platelet Volume 7.9; Monocytes # (A) 0.4 k/uL (0-1.0); Monocytes % (A) 4 %; Neutrophils # (A) 10.1 k/uL (1.3-7.7); Neutrophils % (A) 81 %; Platelet Count 638 k/uL (150-450); Poikilocytosis Moderate; RBC 3.24 m/uL (4.30-5.90); RDW 20.2 % (11.5-15.5); WBC 12.5 k/uL (3.8-10.6)
[2024-05-29 06:53] LABS: HGB 8.8 gm/dL (13.0-17.5)
[2024-05-29 07:01] LABS: African American GFR (CKD) >90 (>60 ml/min/1.73 sqM); Anion Gap -2 mmol/L; Blood Urea Nitrogen 15 mg/dL (9-20); Calcium 8.1 mg/dL (8.4-10.2); Carbon Dioxide 18 mmol/L (22-30); Chloride 115 mmol/L (98-107); Glucose 113 mg/dL (74-99); Non-African American GFR(CKD) 90 (>60 ml/min/1.73 sqM); Potassium 3.8 mmol/L (3.5-5.1); Sodium 131 mmol/L (137-145)
[2024-05-29 11:47] LABS: Glucose,Whole Blood 151 mg/dL (70-110)
--- NOTE | 2024-05-29 12:38 | P.PN ---
Subjective Progress Note Date: 05/29/24 The patient is a 68-year-old male who follows in the office with Dr. LEAH Felder. Patient is currently admitted to the hospital with right lower extremity wound, where he will be undergoing amputation on Friday. Cardiology was consulted for ventricular tachycardia as well as preoperative clearance. Patient interviewed and examined sitting on the side of the bed. He does report some dizziness, but no syncope. No chest pain currently. No difficulty breathing. GENERAL: Well-appearing, well-nourished and in no acute distress. NECK: Supple without JVD or thyromegaly. LUNGS: Breath sounds diminished to auscultation bilaterally. Respiration equal and unlabored. No wheezes, rales or rhonchi. HEART: Regular rate and rhythm without murmurs, rubs or gallops. S1 and S2 heard. EXTREMITIES: Right lower extremity wrapped in dressing, large amount of serous drainage TELEMETRY: Sinus rhythm overnight LABS: WBC 12.5, hemoglobin 8.8, hematocrit 27.5, platelets 638, sodium 131, potassium 3.8, BUN 15, creatinine 0.82 IMPRESSION: Severe peripheral arterial disease with chronic lower extremity ischemia and right lower extremity wounds Ventricular tachycardia Acute on chronic heart failure with reduced EF, currently euvolemic Ischemic cardiomyopathy, 25 to 30% Coronary artery disease with previous CABG in 2014 History of CVA History of carotid stenosis with previous endarterectomy Recent left tlfnt-nlg-kpku amputation and right great toe partial amputation Hypertension Hyperlipidemia Diabetes PLAN: Continue current medication regimen and supportive treatment Continue telemetry monitoring Recommend LifeVest at discharge Patient cleared to undergo right AKA on Friday Further recommendations to be based upon clinical course I am dictating on behalf of Dr Santos Mackay's history/physical and a ssessment/plan. Objective - Vital Signs Vital signs: Vital Signs Temp 97.9 F 05/29/24 09:15 Pulse 83 05/29/24 09:15 Resp 19 05/29/24 09:15 BP 117/73 05/29/24 09:15 Pulse Ox 94 L 05/29/24 09:15 FiO2 Intake & Output 05/28/24 05/29/24 05/29/24 18:59 06:59 18:59 Intake Total 1150 240 Output Total 675 100 Balance 475 -100 240 Weight 72.5 kg 72.5 kg Intake: Oral 840 240 Blood Product 310 Rc As-1 Unit 310 [id number] Output: Urine 675 100 Other: Voiding Method Bedside Commode Bedside Commode Bedside Commode Urinal Urinal Urinal - Labs CBC & Chem 7: 05/29/24 06:08 05/29/24 06:08 Labs: Abnormal Lab Results - Last 24 Hours (Table) 05/28/24 05/28/24 05/28/24 Range/Units 11:42 16:23 20:20 WBC (3.8-10.6) k/uL RBC (4.30-5.90) m/uL Hgb (13.0-17.5) gm/dL Hct (39.0-53.0) % RDW (11.5-15.5) % Plt Count (150-450) k/uL Neutrophils # (1.3-7.7) k/uL Sodium (137-145) mmol/L Chloride (98-107) mmol/L Carbon Dioxide (22-30) mmol/L Glucose (74-99) mg/dL POC Glucose (mg/dL) 210 H 180 H (70-110) mg/dL Calcium (8.4-10.2) mg/dL Crossmatch See Detail 05/29/24 05/29/24 05/29/24 Range/Units 06:08 06:08 06:19 WBC 12.5 H (3.8-10.6) k/uL RBC 3.24 L (4.30-5.90) m/uL Hgb 8.8 L D (13.0-17.5) gm/dL Hct 27.5 L (39.0-53.0) % RDW 20.2 H (11.5-15.5) % Plt Count 638 H (150-450) k/uL Neutrophils # 10.1 H (1.3-7.7) k/uL Sodium 131 L (137-145) mmol/L Chloride 115 H (98-107) mmol/L Carbon Dioxide 18 L (22-30) mmol/L Glucose 113 H (74-99) mg/dL POC Glucose (mg/dL) 146 H (70-110) mg/dL Calcium 8.1 L (8.4-10.2) mg/dL Crossmatch 05/29/24 Range/Units 11:44 WBC (3.8-10.6) k/uL RBC (4.30-5.90) m/uL Hgb (13.0-17.5) gm/dL Hct (39.0-53.0) % RDW (11.5-15.5) % Plt Count (150-450) k/uL Neutrophils # (1.3-7.7) k/uL Sodium (137-145) mmol/L Chloride (98-107) mmol/L Carbon Dioxide (22-30) mmol/L Glucose (74-99) mg/dL POC Glucose (mg/dL) 151 H (70-110) mg/dL Calcium (8.4-10.2) mg/dL Crossmatch Microbiology - Last 24 Hours (Table) 05/25/24 17:52 Blood Culture - Preliminary Blood
[2024-05-29] MEDS ORDERED: Magnesium Replacement Protocol 1 EACH MISC MISCELLANE PRN (13:48)
--- NOTE | 2024-05-29 15:14 | P.PN ---
Subjective Progress Note Date: 05/29/24 Patient seen and examined. Overall a little bit saddened by how sick he actually is. Wearing a LifeVest currently. Objective - Vital Signs Vital signs: Vital Signs Temp 97.9 F 05/29/24 09:15 Pulse 80 05/29/24 12:00 Resp 18 05/29/24 12:00 BP 121/79 05/29/24 12:00 Pulse Ox 100 05/29/24 12:00 FiO2 Intake & Output 05/28/24 05/29/24 05/29/24 18:59 06:59 18:59 Intake Total 1150 462 Output Total 675 100 200 Balance 475 -100 262 Weight 72.5 kg 72.5 kg Intake: Oral 840 462 Blood Product 310 Rc As-1 Unit 310 [id number] Output: Urine 675 100 200 Other: Voiding Method Bedside Commode Bedside Commode Bedside Commode Urinal Urinal Urinal - Exam General appearance: The patient is alert, oriented, appears in no acute distress. HET: Head is normocephalic and atraumatic. Pupils are equal and reactive. Neck: Supple. Heart: Regular. Lungs: Equal expansion, normal respiratory effort. Abdomen: Soft, nontender, nondistended. Extremities: Left AKA surgical site well-approximated with jeffrey. Warm to the touch, no erythema or drainage. Right lower extremity +2 pitting edema, right foot cool to the touch. Nonpalpable pulses. Dressing with serous drainage Neurological: No focal deficits. - Labs CBC & Chem 7: 05/29/24 06:08 05/29/24 06:08 Labs: Abnormal Lab Results - Last 24 Hours (Table) 05/28/24 05/28/24 05/28/24 Range/Units 11:42 16:23 20:20 WBC (3.8-10.6) k/uL RBC (4.30-5.90) m/uL Hgb (13.0-17.5) gm/dL Hct (39.0-53.0) % RDW (11.5-15.5) % Plt Count (150-450) k/uL Neutrophils # (1.3-7.7) k/uL Sodium (137-145) mmol/L Chloride (98-107) mmol/L Carbon Dioxide (22-30) mmol/L Glucose (74-99) mg/dL POC Glucose (mg/dL) 210 H 180 H (70-110) mg/dL Calcium (8.4-10.2) mg/dL Crossmatch See Detail 05/29/24 05/29/24 05/29/24 Range/Units 06:08 06:08 06:19 WBC 12.5 H (3.8-10.6) k/uL RBC 3.24 L (4.30-5.90) m/uL Hgb 8.8 L D (13.0-17.5) gm/dL Hct 27.5 L (39.0-53.0) % RDW 20.2 H (11.5-15.5) % Plt Count 638 H (150-450) k/uL Neutrophils # 10.1 H (1.3-7.7) k/uL Sodium 131 L (137-145) mmol/L Chloride 115 H (98-107) mmol/L Carbon Dioxide 18 L (22-30) mmol/L Glucose 113 H (74-99) mg/dL POC Glucose (mg/dL) 146 H (70-110) mg/dL Calcium 8.1 L (8.4-10.2) mg/dL Crossmatch 05/29/24 Range/Units 11:44 WBC (3.8-10.6) k/uL RBC (4.30-5.90) m/uL Hgb (13.0-17.5) gm/dL Hct (39.0-53.0) % RDW (11.5-15.5) % Plt Count (150-450) k/uL Neutrophils # (1.3-7.7) k/uL Sodium (137-145) mmol/L Chloride (98-107) mmol/L Carbon Dioxide (22-30) mmol/L Glucose (74-99) mg/dL POC Glucose (mg/dL) 151 H (70-110) mg/dL Calcium (8.4-10.2) mg/dL Crossmatch Microbiology - Last 24 Hours (Table) 05/25/24 17:52 Blood Culture - Preliminary Blood Assessment and Plan Plan: 1. Chronic right lower extremity wounds, edema 2. Severe peripheral arterial disease with chronic lower extremity ischemia 3. Diabetes mellitus 4. 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 New onset ventricular tachycardia 6. Acute on chronic heart failure with reduced EF 7. Ischemic cardiomyopathy 8. Coronary artery disease with previous CABG Plan: 1. Continue IV antibiotics per recommendation from infectious disease 2. Continue local wound care at this time, planning to undergo right above-knee amputation early next week. Hold Plavix now, continue Xarelto until Friday then hold 05/31/2024 and 06/01/2024 for AKA
--- NOTE | 2024-05-29 16:14 | P.PN ---
Subjective Progress Note Date: 05/29/24 Principal diagnosis: Right diabetic foot ulcer and cellulitis Patient is a 68-year-old -Swiss male with a past medical history significant for Coronary Artery Disease (CAD), Chest Pain / Angina, COPD, CVA/TIA, Diabetes Mellitus, Hyperlipidemia, Hypertension, Memory Impairment, Myocardial Infarction ([place]), Prostate Disorder, Sleep Apnea/CPAP/BIPAP, Vascular Disorder in this patient who recently did have left nrlvc-hct-cdvm amputation and also debridement of the right big toe wound now being readmitted to the hospital with worsening right foot wound and cellulitis. On today's evaluation that is 05/29/2024, Patient is afebrile patient is currently on room air and denies having any shortness of breath, the patient denies any chest pain or cough, the patient denies any nausea vomiting did not have any abdominal pain and no diarrhea denies any worsening pain to the right lower extremity. Patient white count is down to 12.5, creatinine 0.82 blood cultures are pending Objective - Vital Signs Vital signs: Vital Signs Temp 97.9 F 05/29/24 09:15 Pulse 80 05/29/24 12:00 Resp 18 05/29/24 12:00 BP 121/79 05/29/24 12:00 Pulse Ox 100 05/29/24 12:00 FiO2 Intake & Output 05/28/24 05/29/24 05/29/24 18:59 06:59 18:59 Intake Total 1150 462 Output Total 675 100 900 Balance 475 -100 -438 Weight 72.5 kg 72.5 kg Intake: Oral 840 462 Blood Product 310 Rc As-1 Unit 310 [id number] Output: Urine 675 100 900 Other: Voiding Method Bedside Commode Bedside Commode Bedside Commode Urinal Urinal Urinal - Exam GENERAL DESCRIPTION: An elderly male lying in bed in no distress RESPIRATORY SYSTEM: Unlabored breathing , decreased breath sounds at bases HEART: S1 S2 regular rate and rhythm , ABDOMEN: Soft , no tenderness EXTREMITIES: Right foot wound is currently dressed minimal drainage - Labs CBC & Chem 7: 05/29/24 06:08 05/29/24 06:08 Labs: Abnormal Lab Results - Last 24 Hours (Table) 05/28/24 05/28/24 05/29/24 Range/Units 16:23 20:20 06:08 WBC 12.5 H (3.8-10.6) k/uL RBC 3.24 L (4.30-5.90) m/uL Hgb 8.8 L D (13.0-17.5) gm/dL Hct 27.5 L (39.0-53.0) % RDW 20.2 H (11.5-15.5) % Plt Count 638 H (150-450) k/uL Neutrophils # 10.1 H (1.3-7.7) k/uL Sodium (137-145) mmol/L Chloride (98-107) mmol/L Carbon Dioxide (22-30) mmol/L Glucose (74-99) mg/dL POC Glucose (mg/dL) 210 H 180 H (70-110) mg/dL Calcium (8.4-10.2) mg/dL 05/29/24 05/29/24 05/29/24 Range/Units 06:08 06:19 11:44 WBC (3.8-10.6) k/uL RBC (4.30-5.90) m/uL Hgb (13.0-17.5) gm/dL Hct (39.0-53.0) % RDW (11.5-15.5) % Plt Count (150-450) k/uL Neutrophils # (1.3-7.7) k/uL Sodium 131 L (137-145) mmol/L Chloride 115 H (98-107) mmol/L Carbon Dioxide 18 L (22-30) mmol/L Glucose 113 H (74-99) mg/dL POC Glucose (mg/dL) 146 H 151 H (70-110) mg/dL Calcium 8.1 L (8.4-10.2) mg/dL Microbiology - Last 24 Hours (Table) 05/25/24 17:52 Blood Culture - Preliminary Blood Assessment and Plan (1) Diabetic foot ulcer Current Visit: Yes Status: Acute Code(s): E11.621 - TYPE 2 DIABETES MELLITUS WITH FOOT ULCER; L97.509 - NON-PRESSURE CHRONIC ULCER OTH PRT UNSP FOOT W UNSP SEVERITY SNOMED Code(s): 001167655 (2) Cellulitis of right foot Current Visit: Yes Status: Acute Code(s): L03.115 - CELLULITIS OF RIGHT LOWER LIMB SNOMED Code(s): 77552846474728628 Plan: 1patient presented to hospital with worsening wound to the right foot in this patient who did have a history of diabetes mellitus also with a history of PAD and recent left hajks-inq-uytc amputation now concerning for worsening wound and cellulitis we will need to cover for both gram-positive as well as gram-negative pathogen 2-patient has been eval by vascular surgery recommending right yyfew-wkd-tudi amputation apparent scheduled for next Friday 3patient is afebrile the patient white count is trending down, to continue with vancomycin pharmacy to dose and cefepime and monitor clinical course closely Dictation was produced using [employer] dictation software. please excuse any grammatical, word or spelling errors. Time with Patient: Less than 30
[2024-05-29 17:01] LABS: Glucose,Whole Blood 156 mg/dL (70-110)
[2024-05-29 20:52] LABS: Glucose,Whole Blood 212 mg/dL (70-110)
--- NOTE | 2024-05-29 22:36 | PN ---
PROGRESS NOTE DATE OF SERVICE: 05/29/2024 SUBJECTIVE: This is a 68-year-old gentleman admitted with right foot cellulitis, scheduled for amputation next week. The patient had a run of ventricular tachycardia up to 40 beats yesterday. No chest pain. No palpitation. OBJECTIVE: VITAL SIGNS: Pulse is 80, blood pressure 120/70, respirations 18. CHEST: A few scattered rhonchi and crackles. ABDOMEN: Soft. NERVOUS SYSTEM: Nonfocal. LEGS: Significant cellulitis present. LABORATORY DATA: Glucose 151, magnesium was 1.7 on 18th and 1.9 yesterday. PAST MEDICAL HISTORY: Reviewed. REVIEW OF SYSTEMS: Fourteen-point review is negative except as mentioned earlier. CURRENT MEDICATIONS: Reviewed include cefepime. LABORATORY DATA: Labs are noted. Hemoglobin 8.8, white count 12.5. ASSESSMENT: 1. Severe right foot cellulitis and failure of outpatient treatment. 2. Severe peripheral vascular disease. 3. Status post recent left above-knee amputation. 4. Nonsustained ventricular tachycardia. 5. Anemia. 6. Chronic obstructive pulmonary disease. 7. Hypertension. 8. Hyperlipidemia. 9. Congestive heart failure with chronic systolic dysfunction, ejection fraction 25% to 30%. 10.Possible ischemic cardiomyopathy. 11.Multiple complex medical issues. RECOMMENDATIONS: Recommend to continue current management and continue symptomatic treatment. I will check magnesium. Repeat labs. Continue the broad-spectrum IV antibiotics and QT is only 411. Guarded prognosis. Further recommendations to follow. See orders for further details. Closely follow with multiple consultants. MMCOLLETTEL / VANNAN: [id number] /
[2024-05-30 05:50] LABS: Anisocytosis Moderate; Basophils # (A) 0.1 k/uL (0-0.2); Basophils % (A) 0 %; Eosinophils # (A) 0.1 k/uL (0-0.7); Eosinophils % (A) 1 %; HCT 30.5 % (39.0-53.0); HGB 9.3 gm/dL (13.0-17.5); Hypochromasia Marked; Lymphocytes # (A) 1.5 k/uL (1.0-4.8); Lymphocytes % (A) 12 %; MCH 25.8 pg (25.0-35.0); MCHC 30.4 g/dL (31.0-37.0); MCV 84.7 fL (80.0-100.0); Mean Platelet Volume 7.7; Monocytes # (A) 0.5 k/uL (0-1.0); Monocytes % (A) 4 %; Neutrophils # (A) 9.9 k/uL (1.3-7.7); Neutrophils % (A) 80 %; Platelet Count 769 k/uL (150-450); Poikilocytosis Moderate; RDW 20.5 % (11.5-15.5); WBC 12.3 k/uL (3.8-10.6)
[2024-05-30 06:11] LABS: ALT 19 U/L (4-49); AST 29 U/L (17-59); African American GFR (CKD) >90 (>60 ml/min/1.73 sqM); Albumin 2.1 g/dL (3.5-5.0); Alkaline Phosphatase 89 U/L (38-126); Anion Gap 2 mmol/L; Blood Urea Nitrogen 19 mg/dL (9-20); Calcium 8.4 mg/dL (8.4-10.2); Carbon Dioxide 17 mmol/L (22-30); Chloride 116 mmol/L (98-107); Glucose 118 mg/dL (74-99); Magnesium 1.9 mg/dL (1.6-2.3); Non-African American GFR(CKD) >90 (>60 ml/min/1.73 sqM); Potassium 3.9 mmol/L (3.5-5.1); Sodium 135 mmol/L (137-145); Total Bilirubin 0.6 mg/dL (0.2-1.3); Total Protein 5.1 g/dL (6.3-8.2)
[2024-05-30 06:13] LABS: African American GFR (CKD) >90 (>60 ml/min/1.73 sqM); Non-African American GFR(CKD) >90 (>60 ml/min/1.73 sqM)
[2024-05-30 06:26] LABS: Glucose,Whole Blood 122 mg/dL (70-110)
[2024-05-30] MEDS: VANCOMYCIN TROUGH DUE 1 EACH MISC MISCELLANE ONE (08:25)
--- NOTE | 2024-05-30 09:09 | P.PN ---
Subjective Progress Note Date: 05/30/24 This is Charles Licona NP, I'm dictating on behalf of Dr. Mackay's H&P and A&P. Patient was interviewed and examined. Patient is a pleasant 68-year-old male who presented to the hospital with right foot cellulitis, and we were consulted due to ventricular tachycardia as well as preoperative clearance. Preoperative clearance was given yesterday. The patient reports no chest pain, heart palpitations, or racing of his heart. Patient demonstrates sinus mechanism on telemetry overnight. He has no major cardiac complaints at this time. GENERAL: Well-appearing, well-nourished and in no acute distress. NECK: Supple without JVD or thyromegaly. LUNGS: Breath sounds clear to auscultation bilaterally. Respiration equal and unlabored. No wheezes, rales or rhonchi. HEART: Regular rate and rhythm without murmurs, rubs or gallops. S1 and S2 heard. EXTREMITIES: Normal range of motion, no edema. No clubbing or cyanosis. Peripheral pulses intact and strong. VITALS: Temp 97.9, pulse 80, respirations 18, blood pressure 112/76, O2 saturation 100% on room air TELEMETRY: Sinus mechanism LABS: White count 12.3, hemoglobin 9.3, platelets 769, sodium 135, potassium 3.9, BUN 19, creatinine 0.79, magnesium 1.9 IMPRESSION: 1. Severe peripheral arterial disease with chronic lower extremity ischemia and right lower extremity wounds 2. Ventricular tachycardia 3. Acute on chronic heart failure with reduced EF, currently euvolemic 4. Ischemic cardiomyopathy, EF 25 to 30% 5. Coronary artery disease with previous CABG in 2014 6. History of CVA 7. History of carotid stenosis with previous endarterectomy 8. Recent left oxtqd-lyt-trdh amputation and right great toe partial amputation 9. hypertension 10. hyperlipidemia 11. diabetes PLAN: Continue current medication regimen and supportive treatment. Give single dose of p.o. Lasix 40 mg. Start spironolactone 25 mg daily. LifeVest at discharge. Patient remains cleared to undergo right AKA on Friday. Further recommendations based on patient's clinical course. Objective - Vital Signs Vital signs: Vital Signs Temp 97.9 F 05/30/24 08:28 Pulse 80 05/30/24 08:28 Resp 18 05/30/24 08:28 BP 112/76 05/30/24 08:28 Pulse Ox 100 05/30/24 08:28 FiO2 Intake & Output 05/29/24 05/30/24 05/30/24 18:59 06:59 18:59 Intake Total 822 20 118 Output Total 1440 570 200 Balance -618 -550 -82 Weight 58 kg Intake: IV 20 Invasive Line 5 20 Oral 822 118 Output: Urine 1440 570 200 Other: Voiding Method Bedside Commode Bedside Commode Urinal Urinal # Voids 1 - Labs CBC & Chem 7: 05/30/24 05:31 05/30/24 05:31 Labs: Abnormal Lab Results - Last 24 Hours (Table) 05/29/24 05/29/24 05/29/24 Range/Units 11:44 16:56 20:42 WBC (3.8-10.6) k/uL RBC (4.30-5.90) m/uL Hgb (13.0-17.5) gm/dL Hct (39.0-53.0) % MCHC (31.0-37.0) g/dL RDW (11.5-15.5) % Plt Count (150-450) k/uL Neutrophils # (1.3-7.7) k/uL Sodium (137-145) mmol/L Chloride (98-107) mmol/L Carbon Dioxide (22-30) mmol/L Glucose (74-99) mg/dL POC Glucose (mg/dL) 151 H 156 H 212 H (70-110) mg/dL Total Protein (6.3-8.2) g/dL Albumin (3.5-5.0) g/dL 05/30/24 05/30/24 05/30/24 Range/Units 05:31 05:31 06:15 WBC 12.3 H (3.8-10.6) k/uL RBC 3.60 L (4.30-5.90) m/uL Hgb 9.3 L (13.0-17.5) gm/dL Hct 30.5 L (39.0-53.0) % MCHC 30.4 L (31.0-37.0) g/dL RDW 20.5 H (11.5-15.5) % Plt Count 769 H (150-450) k/uL Neutrophils # 9.9 H (1.3-7.7) k/uL Sodium 135 L (137-145) mmol/L Chloride 116 H (98-107) mmol/L Carbon Dioxide 17 L (22-30) mmol/L Glucose 118 H (74-99) mg/dL POC Glucose (mg/dL) 122 H (70-110) mg/dL Total Protein 5.1 L (6.3-8.2) g/dL Albumin 2.1 L (3.5-5.0) g/dL
[2024-05-30] MEDS: FUROSEMIDE 40 MG TAB PO STA (09:19)
[2024-05-30] MEDS: SPIRONOLACTONE 25 MG TAB PO SCH (09:19)
[2024-05-30 11:26] LABS: Glucose,Whole Blood 125 mg/dL (70-110)
--- NOTE | 2024-05-30 16:03 | P.PN ---
Subjective Progress Note Date: 05/30/24 Principal diagnosis: Right diabetic foot ulcer and cellulitis Patient is a 68-year-old -Congolese male with a past medical history significant for Coronary Artery Disease (CAD), Chest Pain / Angina, COPD, CVA/TIA, Diabetes Mellitus, Hyperlipidemia, Hypertension, Memory Impairment, Myocardial Infarction ([place]), Prostate Disorder, Sleep Apnea/CPAP/BIPAP, Vascular Disorder in this patient who recently did have left hcvjh-kaw-vrau amputation and also debridement of the right big toe wound now being readmitted to the hospital with worsening right foot wound and cellulitis. On today's evaluation that is 05/30/2024, patient has been afebrile, patient is breathing comfortably and is currently on room air, patient denies having any significant cough no chest pain shortness of breath, patient denies nausea vomiting or diarrhea and no abdominal pain, pain to the right foot is controlled mention still stings. Patient white count is 12.3 creatinine 0.79 blood cultures so far negative Objective - Vital Signs Vital signs: Vital Signs Temp 98.2 F 05/30/24 11:48 Pulse 82 05/30/24 11:48 Resp 17 05/30/24 11:48 BP 106/72 05/30/24 11:48 Pulse Ox 97 05/30/24 11:48 FiO2 Intake & Output 05/29/24 05/30/24 05/30/24 18:59 06:59 18:59 Intake Total 822 20 398 Output Total 1440 570 200 Balance -618 -550 198 Weight 58 kg Intake: IV 20 40 Invasive Line 3 20 Invasive Line 5 20 20 Oral 822 358 Output: Urine 1440 570 200 Other: Voiding Method Bedside Commode Bedside Commode Bedside Commode Urinal Urinal Urinal # Voids 1 - Exam GENERAL DESCRIPTION: An elderly male lying in bed in no distress RESPIRATORY SYSTEM: Unlabored breathing , decreased breath sounds at bases HEART: S1 S2 regular rate and rhythm , ABDOMEN: Soft , no tenderness EXTREMITIES: Right foot wound is currently dressed minimal drainage - Labs CBC & Chem 7: 05/30/24 05:31 05/30/24 05:31 Labs: Abnormal Lab Results - Last 24 Hours (Table) 05/29/24 05/29/24 05/30/24 Range/Units 16:56 20:42 05:31 WBC 12.3 H (3.8-10.6) k/uL RBC 3.60 L (4.30-5.90) m/uL Hgb 9.3 L (13.0-17.5) gm/dL Hct 30.5 L (39.0-53.0) % MCHC 30.4 L (31.0-37.0) g/dL RDW 20.5 H (11.5-15.5) % Plt Count 769 H (150-450) k/uL Neutrophils # 9.9 H (1.3-7.7) k/uL Sodium (137-145) mmol/L Chloride (98-107) mmol/L Carbon Dioxide (22-30) mmol/L Glucose (74-99) mg/dL POC Glucose (mg/dL) 156 H 212 H (70-110) mg/dL Total Protein (6.3-8.2) g/dL Albumin (3.5-5.0) g/dL 05/30/24 05/30/24 05/30/24 Range/Units 05:31 06:15 11:25 WBC (3.8-10.6) k/uL RBC (4.30-5.90) m/uL Hgb (13.0-17.5) gm/dL Hct (39.0-53.0) % MCHC (31.0-37.0) g/dL RDW (11.5-15.5) % Plt Count (150-450) k/uL Neutrophils # (1.3-7.7) k/uL Sodium 135 L (137-145) mmol/L Chloride 116 H (98-107) mmol/L Carbon Dioxide 17 L (22-30) mmol/L Glucose 118 H (74-99) mg/dL POC Glucose (mg/dL) 122 H 125 H (70-110) mg/dL Total Protein 5.1 L (6.3-8.2) g/dL Albumin 2.1 L (3.5-5.0) g/dL Assessment and Plan (1) Diabetic foot ulcer Current Visit: Yes Status: Acute Code(s): E11.621 - TYPE 2 DIABETES MELLITUS WITH FOOT ULCER; L97.509 - NON-PRESSURE CHRONIC ULCER OTH PRT UNSP FOOT W UNSP SEVERITY SNOMED Code(s): 078660273 (2) Cellulitis of right foot Current Visit: Yes Status: Acute Code(s): L03.115 - CELLULITIS OF RIGHT LOWER LIMB SNOMED Code(s): 35689898715541635 Plan: 1patient presented to hospital with worsening wound to the right foot in this patient who did have a history of diabetes mellitus also with a history of PAD and recent left bnwju-uyl-wpfd amputation now concerning for worsening wound and cellulitis we will need to cover for both gram-positive as well as gram-negative pathogen 2-patient has been eval by vascular surgery recommending right fymrp-bhj-axob amputation apparent scheduled for next Friday 3patient is afebrile the patient white count is slowly trending down down to 12.3, patient to continue with vancomycin pharmacy to dose and cefepime and monitor clinical course closely Dictation was produced using [employer] dictation software. please excuse any grammatical, word or spelling errors. Time with Patient: Less than 30
[2024-05-30 16:59] LABS: Glucose,Whole Blood 193 mg/dL (70-110)
[2024-05-30 20:16] LABS: Glucose,Whole Blood 88 mg/dL (70-110)
--- NOTE | 2024-05-30 22:27 | PN ---
PROGRESS NOTE DATE OF SERVICE: 05/30/2024 SUBJECTIVE: This 68-year-old gentleman who was admitted with severe right foot cellulitis and failure of outpatient treatment, is being closely monitored. No chest pain. No palpitation. OBJECTIVE: Pulse is 82, blood pressure 106/72, respirations 17. CHEST: Clear to auscultation. CARDIOVASCULAR: S1, S2. ABDOMEN: Soft. LEGS: Significant cellulitis present. LABORATORY DATA: WBC 12.3. ASSESSMENT: 1. Severe right foot cellulitis with failure of outpatient treatment. 2. Severe peripheral vascular disease. 3. Status post recent left above-knee amputation. 4. Nonsustained ventricular tachycardia. 5. Anemia. 6. Chronic obstructive pulmonary disease. 7. Hypertension. 8. Hyperlipidemia. 9. Congestive heart failure with chronic systolic dysfunction, ejection fraction 25% to 30% with possible ischemic cardiomyopathy. 10.Multiple complex medical issues. RECOMMENDATIONS: Recommend to continue current management and continue symptomatic treatment. Otherwise monitor lytes closely. The patient is medically stable and cleared for surgery with some extra risk. Continue the antibiotics. Repeat labs on admission will be ordered. Further recommendations to follow. MMODL / IJN: [id number] /
[2024-05-30] MEDS: VANCOMYCIN 1,250 MG in SODIUM CHLORIDE 0.9% 250 ML IVPB SCH (23:13)
[2024-05-31 06:23] LABS: Glucose,Whole Blood 126 mg/dL (70-110)
[2024-05-31 08:12] LABS: Anisocytosis Moderate; Basophils # (A) 0.1 k/uL (0-0.2); Basophils % (A) 0 %; Eosinophils # (A) 0.2 k/uL (0-0.7); Eosinophils % (A) 1 %; HCT 30.8 % (39.0-53.0); HGB 9.5 gm/dL (13.0-17.5); Hypochromasia Marked; Lymphocytes # (A) 2.1 k/uL (1.0-4.8); Lymphocytes % (A) 14 %; MCH 26.9 pg (25.0-35.0); MCHC 30.8 g/dL (31.0-37.0); MCV 87.2 fL (80.0-100.0); Mean Platelet Volume 7.9; Monocytes # (A) 0.5 k/uL (0-1.0); Monocytes % (A) 3 %; Neutrophils # (A) 11.5 k/uL (1.3-7.7); Neutrophils % (A) 79 %; Platelet Count 772 k/uL (150-450); Poikilocytosis Moderate; RBC 3.54 m/uL (4.30-5.90); RDW 21.2 % (11.5-15.5); WBC 14.6 k/uL (3.8-10.6)
[2024-05-31 10:11] LABS: African American GFR (CKD) >90 (>60 ml/min/1.73 sqM); Anion Gap 5 mmol/L; Blood Urea Nitrogen 19 mg/dL (9-20); Calcium 8.5 mg/dL (8.4-10.2); Carbon Dioxide 15 mmol/L (22-30); Chloride 117 mmol/L (98-107); Glucose 138 mg/dL (74-99); Magnesium 1.9 mg/dL (1.6-2.3); Non-African American GFR(CKD) >90 (>60 ml/min/1.73 sqM); Sodium 137 mmol/L (137-145)
--- NOTE | 2024-05-31 10:15 | P.PN ---
Subjective Progress Note Date: 05/31/24 Principal diagnosis: Peripheral arterial disease, chronic right lower extremity wounds Patient seen and examined today as a follow-up. He is sitting up at the bedside. He is scheduled for right zipds-gli-xtgx amputation tomorrow. He received 1 unit of blood over the weekend. Today's repeat hemoglobin 9.5. Plavix is on hold as well as Xarelto. Objective - Vital Signs Vital signs: Vital Signs Temp 97.9 F 05/31/24 04:00 Pulse 77 05/31/24 04:00 Resp 16 05/31/24 04:00 BP 97/59 05/31/24 04:00 Pulse Ox 97 05/31/24 04:00 FiO2 Intake & Output 05/30/24 05/31/24 05/31/24 18:59 06:59 18:59 Intake Total 516 40 240 Output Total 800 400 Balance -284 -360 240 Intake: IV 40 40 Invasive Line 3 20 20 Invasive Line 5 20 20 Oral 476 240 Output: Urine 800 400 Other: Voiding Method Bedside Commode Bedside Commode Urinal Urinal - Exam General appearance: The patient is alert, oriented, appears in no acute distress. HET: Head is normocephalic and atraumatic. Pupils are equal and reactive. Neck: Supple. Heart: Regular. Lungs: Equal expansion, normal respiratory effort. Abdomen: Soft, nontender, nondistended. Extremities: Left AKA surgical site well-approximated with jeffrey. Warm to the touch, no erythema or drainage. Right lower extremity +2 pitting edema, right foot cool to the touch. Nonpalpable pulses. Dressing clean dry and intact. Neurological: No focal deficits. - Labs CBC & Chem 7: 05/31/24 07:41 05/30/24 05:31 Labs: Abnormal Lab Results - Last 24 Hours (Table) 05/30/24 05/30/24 05/31/24 Range/Units 11:25 16:54 06:22 WBC (3.8-10.6) k/uL RBC (4.30-5.90) m/uL Hgb (13.0-17.5) gm/dL Hct (39.0-53.0) % MCHC (31.0-37.0) g/dL RDW (11.5-15.5) % Plt Count (150-450) k/uL Neutrophils # (1.3-7.7) k/uL POC Glucose (mg/dL) 125 H 193 H 126 H (70-110) mg/dL 05/31/24 Range/Units 07:41 WBC 14.6 H (3.8-10.6) k/uL RBC 3.54 L (4.30-5.90) m/uL Hgb 9.5 L (13.0-17.5) gm/dL Hct 30.8 L (39.0-53.0) % MCHC 30.8 L (31.0-37.0) g/dL RDW 21.2 H (11.5-15.5) % Plt Count 772 H (150-450) k/uL Neutrophils # 11.5 H (1.3-7.7) k/uL POC Glucose (mg/dL) (70-110) mg/dL Microbiology - Last 24 Hours (Table) 05/25/24 17:52 Blood Culture - Final Blood Assessment and Plan Assessment: 1. Chronic right lower extremity wounds 2. Severe peripheral arterial disease with chronic lower extremity ischemia 3. Diabetes mellitus 4. 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 New onset ventricular tachycardia 6. Acute on chronic heart failure with reduced EF 7. Ischemic cardiomyopathy 8. Coronary artery disease with previous CABG Plan: 1. N.p.o. after midnight 2. Continue local wound care per wound clinic recommendations 3 Recommended right yrrvt-seh-bzzk amputation. Patient is now agreeable to right aqytc-mou-awot amputation after getting second opinion. 4. Cardiology following, patient has been cleared from cardiology to undergo right AKA 5. Hold Plavix and Xarelto 6. Plan for right cjtzj-cfv-ifyh amputation tomorrow 7. Repeat CBC, BMP in the morning 8. Type and screen ordered Thank you for this consultation, we will continue to follow. The impression and plan of care has been dictated as directed. Dr. Lozada I performed a history and examination of this patient, discussed the same with the dictator. I agree with the dictator's note ,documented as a scribe. Any additional findings or plans will be noted.
[2024-05-31 11:36] LABS: Glucose,Whole Blood 246 mg/dL (70-110)
--- NOTE | 2024-05-31 14:17 | P.PN ---
Subjective Progress Note Date: 05/31/24 Patient is a pleasant 68-year-old male who presented to the hospital with right foot cellulitis, and we were consulted due to ventricular tachycardia as well as preoperative clearance. Preoperative clearance was given yesterday. The patient reports no chest pain, heart palpitations, or racing of his heart. Patient demonstrates sinus mechanism on telemetry overnight. He has no major cardiac complaints at this time. Blood pressure 129/72, heart rate 78, pulse ox 99% on room air. Repeat blood work reveals WBC 14.6, hemoglobin 9.5, platelet count 772. Sodium 137, potassium 4, BUN 19, creatinine 0.78. Telemetry sinus rhythm. Patient is scheduled for right adxke-ixt-ehdd amputation tomorrow. GENERAL: Well-appearing, well-nourished and in no acute distress. NECK: Supple without JVD or thyromegaly. LUNGS: Breath sounds clear to auscultation bilaterally. Respiration equal and unlabored. No wheezes, rales or rhonchi. HEART: Regular rate and rhythm systolic murmur, rubs or gallops. S1 and S2 heard. EXTREMITIES: Normal range of motion, no edema. No clubbing or cyanosis. Perip heral pulses intact and strong. IMPRESSION: 1. Severe peripheral arterial disease with chronic lower extremity ischemia and right lower extremity wounds 2. Ventricular tachycardia 3. Acute on chronic heart failure with reduced EF, currently euvolemic 4. Ischemic cardiomyopathy, EF 25 to 30% 5. Coronary artery disease with previous CABG in 2014 6. History of CVA 7. History of carotid stenosis with previous endarterectomy 8. Recent left urujv-ejz-atyw amputation and right great toe partial amputation 9. hypertension 10. hyperlipidemia 11. diabetes PLAN: Continue current medication regimen and supportive treatment. Continue spironolactone 25 mg daily. LifeVest at discharge. Patient remains cleared to undergo right AKA on Friday. Plan for patient to have out patient ICD evaluation Nurse practitioner note has been reviewed, I agree with documented findings and plan of care. Patient was seen and examined. Objective - Vital Signs Vital signs: Vital Signs Temp 97.9 F 05/31/24 04:00 Pulse 77 05/31/24 04:00 Resp 16 05/31/24 04:00 BP 97/59 05/31/24 04:00 Pulse Ox 97 05/31/24 04:00 FiO2 Intake & Output 05/30/24 05/31/24 05/31/24 18:59 06:59 18:59 Intake Total 516 40 240 Output Total 800 400 Balance -284 -360 240 Intake: IV 40 40 Invasive Line 3 20 20 Invasive Line 5 20 20 Oral 476 240 Output: Urine 800 400 Other: Voiding Method Bedside Commode Bedside Commode Urinal Urinal - Labs CBC & Chem 7: 05/31/24 07:41 05/31/24 07:41 Labs: Abnormal Lab Results - Last 24 Hours (Table) 05/30/24 05/30/24 05/31/24 Range/Units 11:25 16:54 06:22 WBC (3.8-10.6) k/uL RBC (4.30-5.90) m/uL Hgb (13.0-17.5) gm/dL Hct (39.0-53.0) % MCHC (31.0-37.0) g/dL RDW (11.5-15.5) % Plt Count (150-450) k/uL Neutrophils # (1.3-7.7) k/uL POC Glucose (mg/dL) 125 H 193 H 126 H (70-110) mg/dL 05/31/24 Range/Units 07:41 WBC 14.6 H (3.8-10.6) k/uL RBC 3.54 L (4.30-5.90) m/uL Hgb 9.5 L (13.0-17.5) gm/dL Hct 30.8 L (39.0-53.0) % MCHC 30.8 L (31.0-37.0) g/dL RDW 21.2 H (11.5-15.5) % Plt Count 772 H (150-450) k/uL Neutrophils # 11.5 H (1.3-7.7) k/uL POC Glucose (mg/dL) (70-110) mg/dL Microbiology - Last 24 Hours (Table) 05/25/24 17:52 Blood Culture - Final Blood
[2024-05-31 16:23] LABS: Glucose,Whole Blood 238 mg/dL (70-110)
[2024-05-31 20:31] LABS: Glucose,Whole Blood 111 mg/dL (70-110)
--- NOTE | 2024-05-31 20:37 | PN ---
PROGRESS NOTE DATE OF SERVICE: 05/31/2024 SUBJECTIVE: This is a 68-year-old gentleman, who was admitted with severe right foot cellulitis, is scheduled for amputation tomorrow. No chest pain. No palpitation. The patient also had multiple cardiac issues also, currently stable. OBJECTIVE: VITAL SIGNS: Pulse is 78, blood pressure 120/74, respirations 16. CHEST: Clear. CARDIOVASCULAR: S1, S2. ABDOMEN: Soft. EXTREMITIES: Right leg cellulitis and infection present. LABORATORY DATA: Noted. ASSESSMENT: 1. Severe right foot cellulitis with failure of outpatient treatment. 2. Severe peripheral vascular disease. 3. Status post recent left above-knee amputation. 4. Nonsustained ventricular tachycardia. 5. Anemia. 6. Chronic obstructive pulmonary disease. 7. Congestive heart failure with chronic systolic dysfunction, ejection fraction 25% to 30%. 8. Possible ischemic cardiomyopathy. 9. Multiple complex medical issues. RECOMMENDATIONS: Recommend to continue current management and continue symptomatic treatment. Currently, the patient is medically stable. Recommend to check the labs and especially the magnesium tomorrow. Closely follow with Cardiology. Further recommendations to follow. The patient is cleared for surgery. MMODL / IJN: [id number] /
[2024-06-01 06:24] LABS: Glucose,Whole Blood 138 mg/dL (70-110)
[2024-06-01 06:39] LABS: Anisocytosis Moderate; Basophils # (A) 0.1 k/uL (0-0.2); Basophils % (A) 0 %; Eosinophils # (A) 0.1 k/uL (0-0.7); Eosinophils % (A) 1 %; HCT 29.5 % (39.0-53.0); Hypochromasia Marked; Lymphocytes # (A) 1.6 k/uL (1.0-4.8); Lymphocytes % (A) 13 %; MCH 26.5 pg (25.0-35.0); MCHC 30.5 g/dL (31.0-37.0); MCV 86.6 fL (80.0-100.0); Mean Platelet Volume 7.4; Monocytes # (A) 0.5 k/uL (0-1.0); Monocytes % (A) 4 %; Neutrophils # (A) 9.8 k/uL (1.3-7.7); Neutrophils % (A) 80 %; Platelet Count 738 k/uL (150-450); Poikilocytosis Slight; RBC 3.41 m/uL (4.30-5.90); RDW 21.4 % (11.5-15.5); WBC 12.3 k/uL (3.8-10.6)
[2024-06-01 06:54] LABS: African American GFR (CKD) >90 (>60 ml/min/1.73 sqM); Anion Gap 5 mmol/L; Blood Urea Nitrogen 18 mg/dL (9-20); Calcium 8.3 mg/dL (8.4-10.2); Carbon Dioxide 18 mmol/L (22-30); Chloride 116 mmol/L (98-107); Glucose 134 mg/dL (74-99); Non-African American GFR(CKD) >90 (>60 ml/min/1.73 sqM); Sodium 139 mmol/L (137-145)
[2024-06-01] MEDS: IV FLUID CONTINUATION 1,000 ML IV ONE (06:57)
[2024-06-01] MEDS: DEXAMETHASONE SOD PHOSPHATE 4 MG/ML 1 ML VIAL IVP STA (06:58)
[2024-06-01] MEDS: ONDANSETRON 4 MG/2 ML VIAL IVP STA (06:59)
[2024-06-01] MEDS ORDERED: HYDROmorphone 0.5 MG/0.5 ML SYRINGE IVP PRN (07:00)
[2024-06-01] MEDS ORDERED: ROCURONIUM 10 MG/ML (5 ML VIAL) IV ONE (07:35)
[2024-06-01] MEDS ORDERED: PHENYLEPHRINE-0.9% NACL SYG 1,000 MCG/10 ML SYRINGE ONE (07:35)
[2024-06-01] MEDS ORDERED: fentaNYL (PF) 50 MCG/ML 2 ML AMP ONE (07:35)
[2024-06-01] MEDS ORDERED: ETOMIDATE 2 MG/ML 10 ML VIAL ONE (07:35)
[2024-06-01] MEDS ORDERED: SUGAMMADEX SODIUM 200 MG/2 ML SDV IV ONE (07:35)
[2024-06-01] MEDS ORDERED: LIDOCAINE 1% INJ 10MG/ML (20 ML MDV) ONE (07:35)
--- NOTE | 2024-06-01 08:49 | P.OP ---
Date of Procedure: 06/01/24 Description of Procedure: Preoperative diagnosis: Right lower extremity ischemia, nonhealing wounds Postoperative diagnosis: Same Procedure: Right above-knee amputation Surgeon: Maggi Velez D.O. Anesthesia: General Endotracheal EBL: 50 cc IV fluids: See records Urine output: Not measured Drains: None Complications: None immediately apparent Condition: Stable to recovery Operative indication and findings: Patient is a 68-year-old male with severe peripheral arterial disease and wounds. He recently underwent a left lower extremity above-knee amputation for similar concerns. He was at rehab and was having issues with his right lower extremity and worsening of his swelling and wounds with pain. He has had second opinions which recommend the same course and is at terms and willing to go forward with an above-knee amputation at this time. Risks and benefits of the procedure were discussed including but not limited to bleeding, infection, poor wound healing. He seemed understood and was willing to proceed. Procedure in detail: The patient was taken to the operative suite and placed in supine position. After adequate anesthesia, the right lower extremity was prepped and draped in usual sterile fashion. A preprocedure timeout was performed, all parties were in agreement. Skin marker was utilized and the incision was marked approximately 5 cm proximal to the knee joint. Skin incision was performed and deepened through the subcutaneous tissues to the muscular fascia. The saphenous vein was identified and ligated with 2-0 silk and divided. The muscle groups of the anterior and medial thigh were divided with electrocautery at the same level of the skin incision. The neurovascular bundle was identified on the medial aspect of the thigh. The artery and veins were isolated and suture ligated using 2-0 silk ligatur, there was no significant arterial or venous flow . The sciatic nerve was pulled on stretch and ligated with 2-0 silk tie and divided. The femur was then cleared of its periosteal tissue is elevated roughly 5 cm proximally and was divided with the oscillating saw. The posterior thigh muscles were then divided with electrocautery. The proximal end of the transected femur was smoothed with a rasp. The amputation site was then copiously irrigated. Hemostasis was controlled with electrocautery. The periosteum was reapproximated using interrupted sutures of 2-0 Vicryl. The fascia was reapproximated with interrupted qouaei-dk-rmvhk sutures of 2-0 Vicryl. The skin was reapproximated with jeffrey. A dressing with gauze, Kerlix and a bandage were placed. The patient tolerated the procedure well and was transported to PACU in stable condition
[2024-06-01 09:11] LABS: Glucose,Whole Blood 155 mg/dL (70-110)
--- NOTE | 2024-06-01 10:36 | P.PN ---
Progress Note - Text Progress Note Date: 06/01/24 Patient underwent right hzozb-ykf-ypdj amputation this morning. Patient is seen in his room. He is awake and alert. States pain is well manage. Left AKA surgical site with jeffrey, every other staple removed. Surgical site remains well-approximated. The impression and plan of care has been dictated as directed. Dr. Velez I performed a history and examination of this patient, discussed the same with the dictator. I agree with the dictator's note ,documented as a scribe. Any additional findings or plans will be noted.
[2024-06-01 11:15] LABS: Anisocytosis Moderate; HCT 29.7 % (39.0-53.0); HGB 9.5 gm/dL (13.0-17.5); Hypochromasia Marked; MCH 27.2 pg (25.0-35.0); MCHC 31.9 g/dL (31.0-37.0); MCV 85.2 fL (80.0-100.0); Mean Platelet Volume 7.9; Microcytosis Slight; Platelet Count 737 k/uL (150-450); Poikilocytosis Moderate; RBC 3.49 m/uL (4.30-5.90); RDW 22.1 % (11.5-15.5); WBC 16.6 k/uL (3.8-10.6)
[2024-06-01 11:29] LABS: Glucose,Whole Blood 177 mg/dL (70-110)
[2024-06-01 11:32] LABS: African American GFR (CKD) >90 (>60 ml/min/1.73 sqM); Non-African American GFR(CKD) >90 (>60 ml/min/1.73 sqM)
[2024-06-01] MEDS: VANCOMYCIN TROUGH DUE 1 EACH MISC MISCELLANE ONE (12:25)
[2024-06-01] MEDS: MORPHINE SULFATE 4 MG/ML SYRINGE IV PRN (13:26)
--- NOTE | 2024-06-01 13:53 | P.PN ---
Subjective Progress Note Date: 06/01/24 Patient is a pleasant 68-year-old male who presented to the hospital with right foot cellulitis, and we were consulted due to ventricular tachycardia as well as preoperative clearance. Preoperative clearance was given yesterday. The patient reports no chest pain, heart palpitations, or racing of his heart. Patient demonstrates sinus mechanism on telemetry overnight. He has no major cardiac complaints at this time. Blood pressure 129/72, heart rate 78, pulse ox 99% on room air. Repeat blood work reveals WBC 14.6, hemoglobin 9.5, platelet count 772. Sodium 137, potassium 4, BUN 19, creatinine 0.78. Telemetry sinus rhythm. Patient is scheduled for right ycgan-syc-schf amputation tomorrow. 06/01 Patient is seen today in follow-up. He underwent right egxkm-kob-lrbk amputation today. Vascular is planning to resume Xarelto at 2.5 mg tonight if hemoglobin is stable and we we are in agreement to resume Plavix tomorrow and stop aspirin. Blood pressure 151/82, heart rate 81, pulse ox 99% on room air. Repeat blood work reveals hemoglobin 9.5, WBC 16.6, creatinine 0.73. GENERAL: Well-appearing, well-nourished and in no acute distress. NECK: Supple without JVD or thyromegaly. LUNGS: Breath sounds clear to auscultation bilaterally. Respiration equal and unlabored. No wheezes, rales or rhonchi. HEART: Regular rate and rhythm systolic murmur, rubs or gallops. S1 and S2 hear d. EXTREMITIES: Normal range of motion, no edema. No clubbing or cyanosis. Peripheral pulses intact and strong. IMPRESSION: 1. Severe peripheral arterial disease with chronic lower extremity ischemia and right lower extremity wounds status post right AKA 06/01 2. Ventricular tachycardia 3. Acute on chronic heart failure with reduced EF, currently euvolemic 4. Ischemic cardiomyopathy, EF 25 to 30% 5. Coronary artery disease with previous CABG in 2014 6. History of CVA 7. History of carotid stenosis with previous endarterectomy 8. Recent left ccdxl-syw-gsbx amputation and right great toe partial amputation 9. hypertension 10. hyperlipidemia 11. diabetes PLAN: Continue current cardiac medications: Atorvastatin 80 mg at bedtime, Plavix to be resumed tomorrow 75 mg daily, continue Farxiga 10 mg daily, Toprol XL 75 mg twice daily, Entresto 24-26 mg twice daily, Aldactone 25 mg daily Patient to be resumed on Xarelto this evening. LifeVest to be continued at discharge Plan for patient to have out patient ICD evaluation Nurse practitioner note has been reviewed, I agree with documented findings and plan of care. Patient was seen and examined. Objective - Vital Signs Vital signs: Vital Signs Temp 98 F 06/01/24 08:49 Pulse 82 06/01/24 09:30 Resp 12 06/01/24 09:30 BP 96/60 06/01/24 09:30 Pulse Ox 99 06/01/24 09:30 FiO2 Intake & Output 05/31/24 06/01/24 06/01/24 18:59 06:59 18:59 Intake Total 1150 50 650 Output Total 300 500 200 Balance 850 -450 450 Weight 54.5 kg Intake: IV 40 50 650 Invasive Line 3 20 Invasive Line 5 20 Intake, IV Titration 450 Amount Cefepime 2 gm In Sodium 200 Chloride 0.9% 100 ml @ 25 mls/hr IVPB Q8H [facility] Rx#: [id number] Vancomycin 1,250 mg In 250 Sodium Chloride 0.9% 250 ml @ 125 mls/hr IVPB Q18H [facility] Rx#:[id number] Oral 660 Output: Urine 300 500 150 Estimated Blood Loss 50 Other: Voiding Method Bedside Commode Bedside Commode Urinal Urinal - Labs CBC & Chem 7: 06/01/24 10:46 06/01/24 10:46 Labs: Abnormal Lab Results - Last 24 Hours (Table) 05/31/24 05/31/24 05/31/24 Range/Units 11:34 16:21 20:30 WBC (3.8-10.6) k/uL RBC (4.30-5.90) m/uL Hgb (13.0-17.5) gm/dL Hct (39.0-53.0) % MCHC (31.0-37.0) g/dL RDW (11.5-15.5) % Plt Count (150-450) k/uL Neutrophils # (1.3-7.7) k/uL Chloride (98-107) mmol/L Carbon Dioxide (22-30) mmol/L Glucose (74-99) mg/dL POC Glucose (mg/dL) 246 H 238 H 111 H (70-110) mg/dL Calcium (8.4-10.2) mg/dL 06/01/24 06/01/24 06/01/24 Range/Units 06:12 06:12 06:23 WBC 12.3 H (3.8-10.6) k/uL RBC 3.41 L (4.30-5.90) m/uL Hgb 9.0 L (13.0-17.5) gm/dL Hct 29.5 L (39.0-53.0) % MCHC 30.5 L (31.0-37.0) g/dL RDW 21.4 H (11.5-15.5) % Plt Count 738 H (150-450) k/uL Neutrophils # 9.8 H (1.3-7.7) k/uL Chloride 116 H (98-107) mmol/L Carbon Dioxide 18 L (22-30) mmol/L Glucose 134 H (74-99) mg/dL POC Glucose (mg/dL) 138 H (70-110) mg/dL Calcium 8.3 L (8.4-10.2) mg/dL 06/01/24 Range/Units 09:09 WBC (3.8-10.6) k/uL RBC (4.30-5.90) m/uL Hgb (13.0-17.5) gm/dL Hct (39.0-53.0) % MCHC (31.0-37.0) g/dL RDW (11.5-15.5) % Plt Count (150-450) k/uL Neutrophils # (1.3-7.7) k/uL Chloride (98-107) mmol/L Carbon Dioxide (22-30) mmol/L Glucose (74-99) mg/dL POC Glucose (mg/dL) 155 H (70-110) mg/dL Calcium (8.4-10.2) mg/dL
[2024-06-01 16:49] LABS: Glucose,Whole Blood 226 mg/dL (70-110)
[2024-06-01 20:56] LABS: Glucose,Whole Blood 122 mg/dL (70-110)
[2024-06-01] MEDS: LACTATED RINGERS 1,000 ML IV SCH (21:03)
[2024-06-01] MEDS: RIVAROXABAN 2.5 MG TABLET PO SCH (21:07)
--- NOTE | 2024-06-02 05:52 | P.PN ---
Subjective Progress Note Date: 06/01/24 This is a pleasant 68-year-old male who was recently admitted from [facility] status post recent left AKA and partial amputation on the right great toe although having worsening swelling and nonhealing and evaluated by vascular surgery recommending amputation. Initially patient wanted a second opinion and another vascular surgeon evaluated the case along with the patient recommending amputation with concerns of wet gangrene. Patient willing to proceed and underwent right AKA early this morning with Dr. Velez vascular surgery. Multiple other consultations including cardiology and infectious disease following maintained on antibiotics. Patient will be returning to [facility] on discharge. Review of systems: Constitutional: No reports of fatigue, fever, or chills Cardiovascular: No reports of chest pain or palpitations Respiratory: No reports of shortness of breath or cough GI: No reports of nausea, no reports of vomiting, no bowel movement : No reports of dysuria or retention Neurovascular: reports of generalized weakness, some mild lower extremity pain All medications have been reviewed Active Medications Acetaminophen (Acetaminophen Tab 325 Mg Tab) 650 mg PO Q6HR PRN PRN Reason: Mild Pain or Fever > 100.5 Last Admin: 05/29/24 03:38 Dose: 650 mg Hydrocodone Bitart/Acetaminophen (Hydrocodone/Apap 5-325mg 1 Each Tab) 1 each PO Q6HR PRN PRN Reason: Pain Last Admin: 06/01/24 21:08 Dose: 1 each Atorvastatin Calcium (Atorvastatin 80 Mg Tab) 80 mg PO HS@2100 [facility] Last Admin: 06/01/24 21:08 Dose: 80 mg Cholecalciferol (Cholecalciferol 25 Mcg (1000 Iu) Tablet) 25 mcg PO DAILY@0900 [facility] Last Admin: 06/01/24 09:52 Dose: 25 mcg Clopidogrel Bisulfate (Clopidogrel 75 Mg Tab) 75 mg PO DAILY [facility] Cyanocobalamin (Cyanocobalamin 500 Mcg Tab) 1,000 mcg PO DAILY@0900 [facility] Last Admin: 06/01/24 09:52 Dose: 1,000 mcg Dapagliflozin (Dapagliflozin Propanediol 10 Mg Tablet) 10 mg PO DAILY [facility] Last Admin: 06/01/24 09:51 Dose: 10 mg Dextrose/Water (Dextrose 50% Syringe 50 Ml) 25 ml IVP PER PROTOCOL PRN; Protocol PRN Reason: Hypoglycemia Dextrose/Water (Dextrose 50% Syringe 50 Ml) 50 ml IVP PER PROTOCOL PRN; Protocol PRN Reason: Hypoglycemia Docusate Sodium (Docusate 100 Mg Cap) 100 mg PO BID@0900,2100 [facility] Last Admin: 06/01/24 21:08 Dose: 100 mg Fluconazole (Fluconazole 100 Mg Tab) 100 mg PO DAILY@0900 [facility]; Protocol Last Admin: 06/01/24 09:51 Dose: 100 mg Gabapentin (Gabapentin 300 Mg Cap) 600 mg PO TID@0900,1300,2100 [facility] Last Admin: 06/01/24 21:09 Dose: 600 mg Cefepime HCl 2 gm/ Sodium (Chloride) 100 mls @ 25 mls/hr IVPB Q8H [facility]; Protocol Last Admin: 06/01/24 21:09 Dose: 25 mls/hr Lactated Ringer's (Lactated Ringers) 1,000 mls @ 20 mls/hr IV .Q24H [facility] Last Admin: 06/02/24 01:14 Dose: Not Given Vancomycin HCl 1,250 mg/ (Sodium Chloride) 250 mls @ 125 mls/hr IVPB Q16H [facility] Insulin Aspart (Insulin Aspart (Novolog) 100 Unit/Ml Vial) 0 unit SQ ACHS [facility]; Protocol Last Admin: 06/01/24 21:09 Dose: Not Given Melatonin (Melatonin 5 Mg Tablet) 5 mg PO HS@2100 [facility] Last Admin: 06/01/24 21:09 Dose: 5 mg Metoprolol Succinate (Metoprolol Succinate (Er) 25 Mg Tab.Er.24h) 75 mg PO BID [facility] Last Admin: 06/01/24 21:08 Dose: 75 mg Metronidazole (Metronidazole 500 Mg Tab) 500 mg PO TID [facility]; Protocol Last Admin: 06/01/24 21:07 Dose: 500 mg Miscellaneous Information (Magnesium Replacement Protocol 1 Each Misc) 1 each MISCELLANE DAILY PRN; Protocol PRN Reason: Per Protocol Morphine Sulfate (Morphine Sulfate 4 Mg/Ml Syringe) 4 mg IV Q4HR PRN PRN Reason: Severe Pain (Scale 7 to 10) Last Admin: 06/02/24 02:38 Dose: 4 mg Naloxone HCl (Naloxone 0.4 Mg/Ml 1 Ml Vial) 0.2 mg IV Q2M PRN PRN Reason: Opioid Reversal Pantoprazole Sodium (Pantoprazole 40 Mg Tablet) 40 mg PO DAILY@0600 [facility] Last Admin: 06/01/24 06:08 Dose: Not Given Rivaroxaban (Rivaroxaban 2.5 Mg Tablet) 2.5 mg PO BID [facility]; Protocol Last Admin: 06/01/24 21:07 Dose: 2.5 mg Sacubitril/Valsartan (Sacubitril/Valsartan 24 Mg-26 Mg Tablet) 1 each PO BID [facility] Last Admin: 06/01/24 21:08 Dose: 1 each Spironolactone (Spironolactone 25 Mg Tab) 25 mg PO DAILY [facility] Last Admin: 06/01/24 09:51 Dose: 25 mg Tamsulosin HCl (Tamsulosin 0.4 Mg Cap.Er.24h) 0.4 mg PO DAILY@0900 [facility] Last Admin: 06/01/24 09:51 Dose: 0.4 mg PHYSICAL EXAMINATION: GENERAL: The patient is alert and oriented x4, Well developed, well nourished. Elderly appearing HEENT: Pupils are round and equally reacting to light. EOMI. no scleral icterus. No conjunctival pallor. Normocephalic, atraumatic. No pharyngeal erythema. No th yromegaly. CARDIOVASCULAR: S1 and S2 muffled PULMONARY: diminished breath sounds bilaterally with no wheezing or rhonchi noted. ABDOMEN: soft. Nontender on exam. Thin. non-distended, normoactive bowel sounds. No palpable organomegaly. MUSCULOSKELETAL: No joint swelling or deformity. EXTREMITIES: No cyanosis, clubbing, or pedal edema. Bilateral lower extremities with AKA's noted. Surgical dressing on the right AKA is dry and intact NEUROLOGICAL: Gross neurological examination did not reveal any focal deficits. Diffuse weakness SKIN: No rashes. Assessment: Severe right foot cellulitis with failure of outpatient treatment with recent partial amputation of the right great toe on last admission Severe peripheral vascular disease Status post recent left hcvjl-fxe-dpkb amputation on last admission Nonsustained ventricular tachycardia History of chronic anemia Chronic obstructive pulmonary disease, not in exacerbation Congestive heart failure with chronic systolic dysfunction, EF is 25 to 30% Possible ischemic cardiomyopathy Diabetes mellitus GI prophylaxis DVT prophylaxis Full code Plan: Recommend to continue with current medications and management with multiple consultations following. Patient was evaluated by cardiology deemed moderate risk for surgery although willing to proceed and patient is status post AKA on the right. Patient had a recent left AKA on last admission Infectious disease following and patient is maintained on antibiotics and will continue Continue with local wound care per vascular surgery. Multiple jeffrey including every other staple on the left recent AKA have been removed and incision is well-approximated Continue monitoring Accu-Cheks before meals and at bedtime and will adjust insulins accordingly Will discuss further with other consultations regarding discharge planning and if patient will required continued IV antibiotics Plan is to return to [facility] on discharge with case management following and will discuss if patient requires insurance authorization Due to multiple complex medical issues, overall prognosis is guarded The impression and plan of care has been dictated by Quynh Berg, nurse practitioner as directed. Dr. Adarsh MD I have performed a history and examination and MDM of this patient, discussed the same with the dictator, and agree with the dictator's assessment and plan as written ,documented as a scribe. Based on total visit time, I have performed more than 50% of the visit. Any additional findings or plans will be noted. Objective - Vital Signs Vital signs: Vital Signs Temp 97.9 F 05/31/24 04:00 Pulse 78 05/31/24 08:00 Resp 16 05/31/24 08:00 BP 129/72 05/31/24 08:00 Pulse Ox 99 05/31/24 08:00 FiO2 Intake & Output 05/30/24 05/31/24 05/31/24 18:59 06:59 18:59 Intake Total 516 40 260 Output Total 800 400 Balance -284 -360 260 Intake: IV 40 40 20 Invasive Line 3 20 20 10 Invasive Line 5 20 20 10 Oral 476 240 Output: Urine 800 400 Other: Voiding Method Bedside Commode Bedside Commode Bedside Commode Urinal Urinal Urinal - Labs CBC & Chem 7: 06/01/24 10:46 06/01/24 10:46 Labs: Abnormal Lab Results - Last 24 Hours (Table) 05/30/24 05/30/24 05/31/24 Range/Units 11:25 16:54 06:22 WBC (3.8-10.6) k/uL RBC (4.30-5.90) m/uL Hgb (13.0-17.5) gm/dL Hct (39.0-53.0) % MCHC (31.0-37.0) g/dL RDW (11.5-15.5) % Plt Count (150-450) k/uL Neutrophils # (1.3-7.7) k/uL Chloride (98-107) mmol/L Carbon Dioxide (22-30) mmol/L Glucose (74-99) mg/dL POC Glucose (mg/dL) 125 H 193 H 126 H (70-110) mg/dL 05/31/24 05/31/24 Range/Units 07:41 07:41 WBC 14.6 H (3.8-10.6) k/uL RBC 3.54 L (4.30-5.90) m/uL Hgb 9.5 L (13.0-17.5) gm/dL Hct 30.8 L (39.0-53.0) % MCHC 30.8 L (31.0-37.0) g/dL RDW 21.2 H (11.5-15.5) % Plt Count 772 H (150-450) k/uL Neutrophils # 11.5 H (1.3-7.7) k/uL Chloride 117 H (98-107) mmol/L Carbon Dioxide 15 L (22-30) mmol/L Glucose 138 H (74-99) mg/dL POC Glucose (mg/dL) (70-110) mg/dL Microbiology - Last 24 Hours (Table) 05/25/24 17:52 Blood Culture - Final Blood
[2024-06-02 06:05] LABS: Glucose,Whole Blood 129 mg/dL (70-110)
[2024-06-02] MEDS: VANCOMYCIN 1,250 MG in SODIUM CHLORIDE 0.9% 250 ML IVPB SCH (06:33)
[2024-06-02 07:20] LABS: Anisocytosis Moderate; HCT 25.8 % (39.0-53.0); HGB 8.2 gm/dL (13.0-17.5); Hypochromasia Marked; MCH 27.3 pg (25.0-35.0); MCHC 31.9 g/dL (31.0-37.0); MCV 85.7 fL (80.0-100.0); Mean Platelet Volume 7.8; Microcytosis Slight; Platelet Count 644 k/uL (150-450); Poikilocytosis Moderate; RBC 3.01 m/uL (4.30-5.90); RDW 22.5 % (11.5-15.5); WBC 10.3 k/uL (3.8-10.6)
[2024-06-02 07:33] LABS: ALT 17 U/L (4-49); AST 38 U/L (17-59); African American GFR (CKD) >90 (>60 ml/min/1.73 sqM); Albumin 2.1 g/dL (3.5-5.0); Alkaline Phosphatase 73 U/L (38-126); Anion Gap 2 mmol/L; Blood Urea Nitrogen 18 mg/dL (9-20); Calcium 8.2 mg/dL (8.4-10.2); Carbon Dioxide 21 mmol/L (22-30); Chloride 115 mmol/L (98-107); Glucose 126 mg/dL (74-99); Non-African American GFR(CKD) 89 (>60 ml/min/1.73 sqM); Potassium 3.8 mmol/L (3.5-5.1); Sodium 138 mmol/L (137-145); Total Bilirubin 0.4 mg/dL (0.2-1.3)
--- NOTE | 2024-06-02 08:20 | P.PN ---
Subjective Progress Note Date: 05/31/24 Principal diagnosis: Right diabetic foot ulcer and cellulitis Patient is a 68-year-old -[place] male with a past medical history significant for Coronary Artery Disease (CAD), Chest Pain / Angina, COPD, CVA/TIA, Diabetes Mellitus, Hyperlipidemia, Hypertension, Memory Impairment, Myocardial Infarction ([place]), Prostate Disorder, Sleep Apnea/CPAP/BIPAP, Vascular Disorder in this patient who recently did have left vidsm-oeq-xbvv amputation and also debridement of the right big toe wound now being readmitted to the hospital with worsening right foot wound and cellulitis. On today's evaluation that is 05/31/2024, Patient is afebrile this morning patient denies having any chest pain shortness of breath or cough, the patient is breathing comfortably on room air, patient denies any abdominal pain no diarrhea no nausea no vomiting pain to the right lower extremity is currently controlled. The patient white count is slightly up to 14.6, creatinine 0.78 Objective - Vital Signs Vital signs: Vital Signs Temp 97.9 F 05/31/24 04:00 Pulse 78 05/31/24 08:00 Resp 16 05/31/24 08:00 BP 129/72 05/31/24 08:00 Pulse Ox 99 05/31/24 08:00 FiO2 Intake & Output 05/30/24 05/31/24 05/31/24 18:59 06:59 18:59 Intake Total 516 40 260 Output Total 800 400 Balance -284 -360 260 Intake: IV 40 40 20 Invasive Line 3 20 20 10 Invasive Line 5 20 20 10 Oral 476 240 Output: Urine 800 400 Other: Voiding Method Bedside Commode Bedside Commode Bedside Commode Urinal Urinal Urinal - Exam GENERAL DESCRIPTION: An elderly male lying in bed in no distress RESPIRATORY SYSTEM: Unlabored breathing , decreased breath sounds at bases HEART: S1 S2 regular rate and rhythm , ABDOMEN: Soft , no tenderness EXTREMITIES: Right foot wound is currently dressed minimal drainage - Labs CBC & Chem 7: 06/02/24 07:01 06/02/24 07:01 Labs: Abnormal Lab Results - Last 24 Hours (Table) 05/30/24 05/31/24 05/31/24 Range/Units 16:54 06:22 07:41 WBC 14.6 H (3.8-10.6) k/uL RBC 3.54 L (4.30-5.90) m/uL Hgb 9.5 L (13.0-17.5) gm/dL Hct 30.8 L (39.0-53.0) % MCHC 30.8 L (31.0-37.0) g/dL RDW 21.2 H (11.5-15.5) % Plt Count 772 H (150-450) k/uL Neutrophils # 11.5 H (1.3-7.7) k/uL Chloride (98-107) mmol/L Carbon Dioxide (22-30) mmol/L Glucose (74-99) mg/dL POC Glucose (mg/dL) 193 H 126 H (70-110) mg/dL 05/31/24 05/31/24 Range/Units 07:41 11:34 WBC (3.8-10.6) k/uL RBC (4.30-5.90) m/uL Hgb (13.0-17.5) gm/dL Hct (39.0-53.0) % MCHC (31.0-37.0) g/dL RDW (11.5-15.5) % Plt Count (150-450) k/uL Neutrophils # (1.3-7.7) k/uL Chloride 117 H (98-107) mmol/L Carbon Dioxide 15 L (22-30) mmol/L Glucose 138 H (74-99) mg/dL POC Glucose (mg/dL) 246 H (70-110) mg/dL Microbiology - Last 24 Hours (Table) 05/25/24 17:52 Blood Culture - Final Blood Assessment and Plan (1) Diabetic foot ulcer Current Visit: Yes Status: Acute Code(s): E11.621 - TYPE 2 DIABETES MELLITUS WITH FOOT ULCER; L97.509 - NON-PRESSURE CHRONIC ULCER OTH PRT UNSP FOOT W UNSP SEVERITY SNOMED Code(s): 888238754 (2) Cellulitis of right foot Current Visit: Yes Status: Acute Code(s): L03.115 - CELLULITIS OF RIGHT LOWER LIMB SNOMED Code(s): 13809210097020508 Plan: 1patient presented to hospital with worsening wound to the right foot in this patient who did have a history of diabetes mellitus also with a history of PAD and recent left rvqsq-gzv-kyiz amputation now concerning for worsening wound and cellulitis we will need to cover for both gram-positive as well as gram-negative pathogen 2-patient has been eval by vascular surgery recommending right laiap-miv-gnbg amputation apparent scheduled for tomorrow 3patient is afebrile the patient white count is slightly up today and need to be evaluated closely, patient to continue with vancomycin pharmacy to dose and cefepime and continue with supportive care Dictation was produced using [employer] dictation software. please excuse any gr ammatical, word or spelling errors. Time with Patient: Less than 30
--- NOTE | 2024-06-02 08:21 | P.PN ---
Subjective Progress Note Date: 06/01/24 Principal diagnosis: Right diabetic foot ulcer and cellulitis Patient is a 68-year-old -[place] male with a past medical history significant for Coronary Artery Disease (CAD), Chest Pain / Angina, COPD, CVA/TIA, Diabetes Mellitus, Hyperlipidemia, Hypertension, Memory Impairment, Myocardial Infarction ([place]), Prostate Disorder, Sleep Apnea/CPAP/BIPAP, Vascular Disorder in this patient who recently did have left twcrp-dvi-rfjx amputation and also debridement of the right big toe wound now being readmitted to the hospital with worsening right foot wound and cellulitis.Patient is status post right obptj-noh-ptgt potation completed on 06/01/2024. On today's evaluation that is 06/01/2024,the patient denies any fever or any chills, patient is breathing comfortably on room air, the patient denies chest pain shortness of breath and no significant cough, patient denies abdominal pain, no nausea vomiting or diarrhea. Patient pain to the right AKA stump is currently controlled. Patient white count is up to 16.6, creatinine 0.73, blood culture remains to be negative Objective - Vital Signs Vital signs: Vital Signs Temp 97.9 F 06/01/24 11:10 Pulse 85 06/01/24 12:00 Resp 16 06/01/24 12:00 BP 119/75 06/01/24 12:00 Pulse Ox 99 06/01/24 09:30 FiO2 Intake & Output 05/31/24 06/01/24 06/01/24 18:59 06:59 18:59 Intake Total 1150 50 650 Output Total 300 500 450 Balance 850 -450 200 Weight 54.5 kg Intake: IV 40 50 650 Invasive Line 3 20 Invasive Line 5 20 Intake, IV Titration 450 Amount Cefepime 2 gm In Sodium 200 Chloride 0.9% 100 ml @ 25 mls/hr IVPB Q8H [facility] Rx#: [id number] Vancomycin 1,250 mg In 250 Sodium Chloride 0.9% 250 ml @ 125 mls/hr IVPB Q18H [facility] Rx#:[id number] Oral 660 Output: Urine 300 500 400 Estimated Blood Loss 50 Other: Voiding Method Bedside Commode Bedside Commode Bedside Commode Urinal Urinal Urinal # Voids 1 - Exam GENERAL DESCRIPTION: An elderly male lying in bed in no distress RESPIRATORY SYSTEM: Unlabored breathing , decreased breath sounds at bases HEART: S1 S2 regular rate and rhythm , ABDOMEN: Soft , no tenderness EXTREMITIES: Right AKA stump is currently dressed - Labs CBC & Chem 7: 06/02/24 07:01 06/02/24 07:01 Labs: Abnormal Lab Results - Last 24 Hours (Table) 05/31/24 05/31/24 06/01/24 Range/Units 16:21 20:30 06:12 WBC 12.3 H (3.8-10.6) k/uL RBC 3.41 L (4.30-5.90) m/uL Hgb 9.0 L (13.0-17.5) gm/dL Hct 29.5 L (39.0-53.0) % MCHC 30.5 L (31.0-37.0) g/dL RDW 21.4 H (11.5-15.5) % Plt Count 738 H (150-450) k/uL Neutrophils # 9.8 H (1.3-7.7) k/uL Chloride (98-107) mmol/L Carbon Dioxide (22-30) mmol/L Glucose (74-99) mg/dL POC Glucose (mg/dL) 238 H 111 H (70-110) mg/dL Calcium (8.4-10.2) mg/dL 06/01/24 06/01/24 06/01/24 Range/Units 06:12 06:23 09:09 WBC (3.8-10.6) k/uL RBC (4.30-5.90) m/uL Hgb (13.0-17.5) gm/dL Hct (39.0-53.0) % MCHC (31.0-37.0) g/dL RDW (11.5-15.5) % Plt Count (150-450) k/uL Neutrophils # (1.3-7.7) k/uL Chloride 116 H (98-107) mmol/L Carbon Dioxide 18 L (22-30) mmol/L Glucose 134 H (74-99) mg/dL POC Glucose (mg/dL) 138 H 155 H (70-110) mg/dL Calcium 8.3 L (8.4-10.2) mg/dL 06/01/24 06/01/24 Range/Units 10:46 11:27 WBC 16.6 H (3.8-10.6) k/uL RBC 3.49 L (4.30-5.90) m/uL Hgb 9.5 L (13.0-17.5) gm/dL Hct 29.7 L (39.0-53.0) % MCHC (31.0-37.0) g/dL RDW 22.1 H (11.5-15.5) % Plt Count 737 H (150-450) k/uL Neutrophils # (1.3-7.7) k/uL Chloride (98-107) mmol/L Carbon Dioxide (22-30) mmol/L Glucose (74-99) mg/dL POC Glucose (mg/dL) 177 H (70-110) mg/dL Calcium (8.4-10.2) mg/dL Assessment and Plan (1) Diabetic foot ulcer Current Visit: Yes Status: Acute Code(s): E11.621 - TYPE 2 DIABETES MELLITUS WITH FOOT ULCER; L97.509 - NON-PRESSURE CHRONIC ULCER OTH PRT UNSP FOOT W UNSP SEVERITY SNOMED Code(s): 228617693 (2) Cellulitis of right foot Current Visit: Yes Status: Acute Code(s): L03.115 - CELLULITIS OF RIGHT LOWER LIMB SNOMED Code(s): 28369371021597560 Plan: 1patient presented to hospital with worsening wound to the right foot in this patient who did have a history of diabetes mellitus also with a history of PAD and recent left ympvk-ubw-fbst amputation now concerning for worsening wound and cellulitis we will need to cover for both gram-positive as well as gram-negative pathogen 2-patient has been eval by vascular surgery and is status post right abo ve-the-knee amputation patient did have elevated white count hence we will continue with the cefepime and vancomycin repeat CBC with a.m. lab and monitor clinical course closely Dictation was produced using Commun[employer] software. please excuse any grammatical, word or spelling errors. Time with Patient: Less than 30
[2024-06-02] MEDS: CLOPIDOGREL 75 MG TAB PO SCH (08:52)
--- NOTE | 2024-06-02 09:44 | P.PN ---
Subjective Progress Note Date: 06/02/24 Patient is a pleasant 68-year-old male who presented to the hospital with right foot cellulitis, and we were consulted due to ventricular tachycardia as well as preoperative clearance. Preoperative clearance was given yesterday. The patient reports no chest pain, heart palpitations, or racing of his heart. Patient demonstrates sinus mechanism on telemetry overnight. He has no major cardiac complaints at this time. Blood pressure 129/72, heart rate 78, pulse ox 99% on room air. Repeat blood work reveals WBC 14.6, hemoglobin 9.5, platelet count 772. Sodium 137, potassium 4, BUN 19, creatinine 0.78. Telemetry sinus rhythm. Patient is scheduled for right iqftf-fjf-lwnl amputation tomorrow. 06/01 Patient is seen today in follow-up. He underwent right isjyc-sha-psju amputation today. Vascular is planning to resume Xarelto at 2.5 mg tonight if hemoglobin is stable and we we are in agreement to resume Plavix tomorrow and stop aspirin. Blood pressure 151/82, heart rate 81, pulse ox 99% on room air. Repeat blood work reveals hemoglobin 9.5, WBC 16.6, creatinine 0.73. 06/02 Patient is seen today in follow-up. No chest pain or shortness of breath. Vital signs have been stable, blood pressure 118/74, heart rate 80, pulse ox 100% on room air. Repeat blood work reveals hemoglobin 8.2, creatinine 0.84. Patient has been resumed on low-dose Xarelto as well as Plavix was resumed this morning. LifeVest is in place. GENERAL: Well-appearing, well-nourished and in no acute distress. NECK: Supple without JVD or thyromegaly. LUNGS: Breath sounds clear to auscultation bilaterally. Respiration equal and unlabored. No wheezes, rales or rhonchi. HEART: Regular rate and rhythm systolic murmur, rubs or gallops. S1 and S2 heard. EXTREMITIES: Normal range of motion, no edema. No clubbing or cyanosis. Peripheral pulses intact and strong. IMPRESSION: 1. Severe peripheral arterial disease with chronic lower extremity ischemia and right lower extremity wounds status post right AKA 06/01 2. Ventricular tachycardia 3. Acute on chronic heart failure with reduced EF, currently euvolemic 4. Ischemic cardiomyopathy, EF 25 to 30% 5. Coronary artery disease with previous CABG in 2015 6. History of CVA 7. History of carotid stenosis with previous endarterectomy 8. Recent left djdvk-esd-nffr amputation and right great toe partial amputation 9. hypertension 10. hyperlipidemia 11. diabetes PLAN: Continue current cardiac medications: Atorvastatin 80 mg at bedtime, Plavix 75 mg daily, Farxiga 10 mg daily, Toprol XL 75 mg twice daily, Entresto 24-26 mg twice daily, Aldactone 25 mg daily, Xarelto LifeVest to be continued at discharge Patient is cleared for discharge from cardiology and may follow-up with Dr. LEAH Felder in 1 week. ICD evaluation will take place in the outpatient setting. Nurse practitioner note has been reviewed, I agree with documented findings and plan of care. Patient was seen and examined. Objective - Vital Signs Vital signs: Vital Signs Temp 98.3 F 06/02/24 08:00 Pulse 80 06/02/24 08:00 Resp 16 06/02/24 08:00 BP 118/74 06/02/24 08:00 Pulse Ox 100 06/02/24 08:00 FiO2 Intake & Output 06/01/24 06/02/24 06/02/24 18:59 06:59 18:59 Intake Total 768 10 Output Total 450 250 Balance 318 -250 10 Weight 52.5 kg Intake: IV 650 10 Invasive Line 5 10 Oral 118 Output: Urine 400 250 Estimated Blood Loss 50 Other: Voiding Method Bedside Commode Urinal Urinal Incontinent # Voids 1 2 - Labs CBC & Chem 7: 06/02/24 07:01 06/02/24 07:01 Labs: Abnormal Lab Results - Last 24 Hours (Table) 06/01/24 06/01/24 06/01/24 Range/Units 09:09 10:46 11:27 WBC 16.6 H (3.8-10.6) k/uL RBC 3.49 L (4.30-5.90) m/uL Hgb 9.5 L (13.0-17.5) gm/dL Hct 29.7 L (39.0-53.0) % RDW 22.1 H (11.5-15.5) % Plt Count 737 H (150-450) k/uL Chloride (98-107) mmol/L Carbon Dioxide (22-30) mmol/L Glucose (74-99) mg/dL POC Glucose (mg/dL) 155 H 177 H (70-110) mg/dL Calcium (8.4-10.2) mg/dL Total Protein (6.3-8.2) g/dL Albumin (3.5-5.0) g/dL 06/01/24 06/01/24 06/02/24 Range/Units 16:46 20:54 06:04 WBC (3.8-10.6) k/uL RBC (4.30-5.90) m/uL Hgb (13.0-17.5) gm/dL Hct (39.0-53.0) % RDW (11.5-15.5) % Plt Count (150-450) k/uL Chloride (98-107) mmol/L Carbon Dioxide (22-30) mmol/L Glucose (74-99) mg/dL POC Glucose (mg/dL) 226 H 122 H 129 H (70-110) mg/dL Calcium (8.4-10.2) mg/dL Total Protein (6.3-8.2) g/dL Albumin (3.5-5.0) g/dL 06/02/24 06/02/24 Range/Units 07:01 07:01 WBC (3.8-10.6) k/uL RBC 3.01 L (4.30-5.90) m/uL Hgb 8.2 L (13.0-17.5) gm/dL Hct 25.8 L (39.0-53.0) % RDW 22.5 H (11.5-15.5) % Plt Count 644 H (150-450) k/uL Chloride 115 H (98-107) mmol/L Carbon Dioxide 21 L (22-30) mmol/L Glucose 126 H (74-99) mg/dL POC Glucose (mg/dL) (70-110) mg/dL Calcium 8.2 L (8.4-10.2) mg/dL Total Protein 5.0 L (6.3-8.2) g/dL Albumin 2.1 L (3.5-5.0) g/dL
--- NOTE | 2024-06-02 09:47 | P.PN ---
Subjective Progress Note Date: 06/02/24 Principal diagnosis: Peripheral arterial disease, chronic right lower extremity wounds Patient is seen and examined today as a follow-up. He is postop day #1 for right zbzbn-kuw-jbht amputation. States pain is controlled. He is having difficulty getting comfortable. Repeat hemoglobin this morning 8.2. He has been afebrile. Objective - Vital Signs Vital signs: Vital Signs Temp 98.2 F 06/02/24 03:45 Pulse 73 06/02/24 03:45 Resp 14 06/02/24 03:45 BP 98/65 06/02/24 03:45 Pulse Ox 100 06/02/24 03:45 FiO2 Intake & Output 06/01/24 06/02/24 06/02/24 18:59 06:59 18:59 Intake Total 768 10 Output Total 450 250 Balance 318 -250 10 Weight 52.5 kg Intake: IV 650 10 Invasive Line 5 10 Oral 118 Output: Urine 400 250 Estimated Blood Loss 50 Other: Voiding Method Bedside Commode Urinal Urinal Incontinent # Voids 1 2 - Exam General appearance: The patient is alert, oriented, appears in no acute distress. HET: Head is normocephalic and atraumatic. Pupils are equal and reactive. Neck: Supple. Heart: Regular. Lungs: Equal expansion, normal respiratory effort. Abdomen: Soft, nondistended. Extremities: Left AKA surgical site well-approximated with jeffrey, every other staple removed. Warm to the touch, no erythema or drainage. Right pvqmq-vud-ijgm amputation with dressing with minimal drainage noted when changed. Surgical incision well-approximated with jeffrey. Warm to the touch. Neurological: No focal deficits. - Labs CBC & Chem 7: 06/02/24 07:01 06/02/24 07:01 Labs: Abnormal Lab Results - Last 24 Hours (Table) 06/01/24 06/01/24 06/01/24 Range/Units 09:09 10:46 11:27 WBC 16.6 H (3.8-10.6) k/uL RBC 3.49 L (4.30-5.90) m/uL Hgb 9.5 L (13.0-17.5) gm/dL Hct 29.7 L (39.0-53.0) % RDW 22.1 H (11.5-15.5) % Plt Count 737 H (150-450) k/uL Chloride (98-107) mmol/L Carbon Dioxide (22-30) mmol/L Glucose (74-99) mg/dL POC Glucose (mg/dL) 155 H 177 H (70-110) mg/dL Calcium (8.4-10.2) mg/dL Total Protein (6.3-8.2) g/dL Albumin (3.5-5.0) g/dL 06/01/24 06/01/24 06/02/24 Range/Units 16:46 20:54 06:04 WBC (3.8-10.6) k/uL RBC (4.30-5.90) m/uL Hgb (13.0-17.5) gm/dL Hct (39.0-53.0) % RDW (11.5-15.5) % Plt Count (150-450) k/uL Chloride (98-107) mmol/L Carbon Dioxide (22-30) mmol/L Glucose (74-99) mg/dL POC Glucose (mg/dL) 226 H 122 H 129 H (70-110) mg/dL Calcium (8.4-10.2) mg/dL Total Protein (6.3-8.2) g/dL Albumin (3.5-5.0) g/dL 06/02/24 06/02/24 Range/Units 07:01 07:01 WBC (3.8-10.6) k/uL RBC 3.01 L (4.30-5.90) m/uL Hgb 8.2 L (13.0-17.5) gm/dL Hct 25.8 L (39.0-53.0) % RDW 22.5 H (11.5-15.5) % Plt Count 644 H (150-450) k/uL Chloride 115 H (98-107) mmol/L Carbon Dioxide 21 L (22-30) mmol/L Glucose 126 H (74-99) mg/dL POC Glucose (mg/dL) (70-110) mg/dL Calcium 8.2 L (8.4-10.2) mg/dL Total Protein 5.0 L (6.3-8.2) g/dL Albumin 2.1 L (3.5-5.0) g/dL Assessment and Plan Assessment: 1. Severe peripheral arterial disease with chronic lower extremity ischemia's status post right gttgh-tqb-pstk amputation 2. Chronic right lower extremity wounds 3. Diabetes mellitus 4. 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 New onset ventricular tachycardia, LifeVest ordered per cardiology 6. Acute on chronic heart failure with reduced EF 7. Ischemic cardiomyopathy 8. Coronary artery disease with previous CABG Plan: 1. Consistent carbohydrate diet 2. Daily dressing change to right AKA 4 x 4, wrap with Kerlix and apply stump clinical trials systems administrator 3 Stump clinical trials systems administrator and rigid dressing ordered 4. May resume Xarelto and Plavix 5. Repeat CBC tomorrow 6. Physical therapy and Occupational Therapy ordered 7. Patient is cleared from vascular surgery for discharge to [facility] Thank you for this consultation, we will continue to follow. The impression and plan of care has been dictated as directed. Dr. Velez I performed a history and examination of this patient, discussed the same with the dictator. I agree with the dictator's note ,documented as a scribe. Any additional findings or plans will be noted.
[2024-06-02 11:25] LABS: Glucose,Whole Blood 213 mg/dL (70-110)
[2024-06-02 16:55] LABS: Glucose,Whole Blood 68 mg/dL (70-110)
--- NOTE | 2024-06-02 17:22 | P.PN ---
Subjective Progress Note Date: 06/02/24 Principal diagnosis: Right diabetic foot ulcer and cellulitis Patient is a 68-year-old -[place] male with a past medical history significant for Coronary Artery Disease (CAD), Chest Pain / Angina, COPD, CVA/TIA, Diabetes Mellitus, Hyperlipidemia, Hypertension, Memory Impairment, Myocardial Infarction ([place]), Prostate Disorder, Sleep Apnea/CPAP/BIPAP, Vascular Disorder in this patient who recently did have left rcure-vjg-xbgm amputation and also debridement of the right big toe wound now being readmitted to the hospital with worsening right foot wound and cellulitis.Patient is status post right ydqfg-ywa-zimy potation completed on 06/01/2024. On today's evaluation that is 06/02/2024,the patient remains to be afebrile, patient is on room air not requiring supplemental oxygen and denies any shortness of breath no chest pain or cough.Patient denies having any nausea or vomiting, no abdominal pain and no diarrhea has been reported patient complaining of pain to the left gluteal area. Patient white count is 10.3, creatinine 0.84 blood culture has been negative Objective - Vital Signs Vital signs: Vital Signs Temp 98 F 06/02/24 12:00 Pulse 85 06/02/24 12:00 Resp 16 06/02/24 12:00 BP 122/76 06/02/24 12:00 Pulse Ox 99 06/02/24 12:00 FiO2 Intake & Output 06/01/24 06/02/24 06/02/24 18:59 06:59 18:59 Intake Total 768 380 Output Total 450 250 275 Balance 318 -250 105 Weight 52.5 kg 52.5 kg Intake: IV 650 20 Invasive Line 5 20 Oral 118 360 Output: Urine 400 250 275 Estimated Blood Loss 50 Other: Voiding Method Bedside Commode Urinal Urinal Urinal Incontinent Incontinent # Voids 1 2 - Exam GENERAL DESCRIPTION: An elderly male lying in bed in no distress RESPIRATORY SYSTEM: Unlabored breathing , decreased breath sounds at bases HEART: S1 S2 regular rate and rhythm , ABDOMEN: Soft , no tenderness EXTREMITIES: Right AKA stump is currently dressed - Labs CBC & Chem 7: 06/02/24 07:01 06/02/24 07:01 Labs: Abnormal Lab Results - Last 24 Hours (Table) 06/01/24 06/01/24 06/02/24 Range/Units 16:46 20:54 06:04 RBC (4.30-5.90) m/uL Hgb (13.0-17.5) gm/dL Hct (39.0-53.0) % RDW (11.5-15.5) % Plt Count (150-450) k/uL Chloride (98-107) mmol/L Carbon Dioxide (22-30) mmol/L Glucose (74-99) mg/dL POC Glucose (mg/dL) 226 H 122 H 129 H (70-110) mg/dL Calcium (8.4-10.2) mg/dL Total Protein (6.3-8.2) g/dL Albumin (3.5-5.0) g/dL 06/02/24 06/02/24 06/02/24 Range/Units 07:01 07:01 11:24 RBC 3.01 L (4.30-5.90) m/uL Hgb 8.2 L (13.0-17.5) gm/dL Hct 25.8 L (39.0-53.0) % RDW 22.5 H (11.5-15.5) % Plt Count 644 H (150-450) k/uL Chloride 115 H (98-107) mmol/L Carbon Dioxide 21 L (22-30) mmol/L Glucose 126 H (74-99) mg/dL POC Glucose (mg/dL) 213 H (70-110) mg/dL Calcium 8.2 L (8.4-10.2) mg/dL Total Protein 5.0 L (6.3-8.2) g/dL Albumin 2.1 L (3.5-5.0) g/dL Assessment and Plan (1) Diabetic foot ulcer Current Visit: Yes Status: Acute Code(s): E11.621 - TYPE 2 DIABETES MELLITUS WITH FOOT ULCER; L97.509 - NON-PRESSURE CHRONIC ULCER OTH PRT UNSP FOOT W UNSP SEVERITY SNOMED Code(s): 798199797 (2) Cellulitis of right foot Current Visit: Yes Status: Acute Code(s): L03.115 - CELLULITIS OF RIGHT LOWER LIMB SNOMED Code(s): 31020021727960613 Plan: 1patient presented to hospital with worsening wound to the right foot in this patient who did have a history of diabetes mellitus also with a history of PAD and recent left zlorb-uzu-pjke amputation now concerning for worsening wound and cellulitis we will need to cover for both gram-positive as well as gram-negative pathogen 2-patient has been eval by vascular surgery and is status post right abwng-pkv-naea amputation patient did have normalization of his white count plan is to discontinue cefepime and vancomycin on discharge 3patient did have a pressure ulcer to the gluteal area nursing staff has been advised to apply Medihoney keep the area of the pressure Dictation was produced using ucho[employer] dictation software. please excuse any grammatical, word or spelling errors. Time with Patient: Less than 30
[2024-06-02 20:30] LABS: Glucose,Whole Blood 214 mg/dL (70-110)
--- NOTE | 2024-06-03 04:53 | P.PN ---
Subjective Progress Note Date: 06/02/24 This is a pleasant 68-year-old male who was recently admitted from [facility] status post recent left AKA and partial amputation on the right great toe although having worsening swelling and nonhealing and evaluated by vascular surgery recommending amputation. Initially patient wanted a second opinion and another vascular surgeon evaluated the case along with the patient recommending amputation with concerns of wet gangrene. Patient willing to proceed and underwent right AKA early this morning with Dr. Velez vascular surgery. Multiple other consultations including cardiology and infectious disease following maintained on antibiotics. Patient will be returning to [facility] on discharge. 06/02/2024 Patient is seen in follow-up this morning with no acute overnight issues noted. Patient reports he has minimal pain and is status post right AKA. Patient needed updated notes for PT/OT therapy as patient will be returning to [facility] and case management is following. Patient is afebrile and white count has normalized and maintained on IV antibiotics with infectious disease following. Patient will not require antibiotics on discharge. Vascular has cleared the patient for discharge to [facility]. Patient will require insurance authorization which is pending. Review of systems: Constitutional: No reports of fatigue, fever, or chills Cardiovascular: No reports of chest pain or palpitations Respiratory: No reports of shortness of breath or cough GI: No reports of nausea, no reports of vomiting, no bowel movement : No reports of dysuria or retention Neurovascular: reports of generalized weakness All medications have been reviewed PHYSICAL EXAMINATION: GENERAL: The patient is alert and oriented x4, Well developed, well nourished. Elderly appearing HEENT: Pupils are round and equally reacting to light. EOMI. no scleral icterus. No conjunctival pallor. Normocephalic, atraumatic. No pharyngeal erythema. No thyromegaly. CARDIOVASCULAR: S1 and S2 muffled PULMONARY: diminished breath sounds bilaterally with no wheezing or rhonchi noted. ABDOMEN: soft. Nontender on exam. Thin. non-distended, normoactive bowel sounds. No palpable organomegaly. MUSCULOSKELETAL: No joint swelling or deformity. EXTREMITIES: No cyanosis, clubbing, or pedal edema. Bilateral lower extremities with AKA's noted. Surgical dressing on the right AKA is dry and intact NEUROLOGICAL: Gross neurological examination did not reveal any focal deficits. Diffuse weakness SKIN: No rashes. Assessment: Severe right foot cellulitis with failure of outpatient treatment with recent partial amputation of the right great toe on last admission, status post right AKA this admission Severe peripheral vascular disease Status post recent left ptmsw-pfm-dxzz amputation on last admission Nonsustained ventricular tachycardia History of chronic anemia Chronic obstructive pulmonary disease, not in exacerbation Congestive heart failure with chronic systolic dysfunction, EF is 25 to 30% Possible ischemic cardiomyopathy Diabetes mellitus GI prophylaxis DVT prophylaxis Full code Plan: Recommend to continue with current medications and management with multiple consultations following. Patient is status post right AKA and recent left AKA on last admission. Plan is to return to [facility] and will require insurance authorization. Case management following and awaiting updated PT/OT therapy notes Infectious disease following and patient is maintained on antibiotics and will continue for now. Will not require antibiotics on discharge Continue with local wound care per vascular surgery. Multiple jeffrey including every other staple on the left recent AKA have been removed and incision is well-approximated Continue monitoring Accu-Cheks before meals and at bedtime and will adjust insulins accordingly Due to multiple complex medical issues, overall prognosis is guarded Possible discharge in the next 24 to 48 hours The impression and plan of care has been dictated by Quynh Berg, nurse practitioner as directed. Dr. Adarsh MD I have performed a history and examination and MDM of this patient, discussed the same with the dictator, and agree with the dictator's assessment and plan as written ,documented as a scribe. Based on total visit time, I have performed more than 50% of the visit. Any additional findings or plans will be noted. Objective - Vital Signs Vital signs: Vital Signs Temp 98 F 06/02/24 12:00 Pulse 85 06/02/24 12:00 Resp 16 06/02/24 12:00 BP 122/76 06/02/24 12:00 Pulse Ox 99 06/02/24 12:00 FiO2 Intake & Output 06/01/24 06/02/24 06/02/24 18:59 06:59 18:59 Intake Total 768 370 Output Total 450 250 275 Balance 318 -250 95 Weight 52.5 kg 52.5 kg Intake: IV 650 10 Invasive Line 5 10 Oral 118 360 Output: Urine 400 250 275 Estimated Blood Loss 50 Other: Voiding Method Bedside Commode Urinal Urinal Urinal Incontinent Incontinent # Voids 1 2 - Labs CBC & Chem 7: 06/02/24 07:01 06/02/24 07:01 Labs: Abnormal Lab Results - Last 24 Hours (Table) 06/01/24 06/01/24 06/02/24 Range/Units 16:46 20:54 06:04 RBC (4.30-5.90) m/uL Hgb (13.0-17.5) gm/dL Hct (39.0-53.0) % RDW (11.5-15.5) % Plt Count (150-450) k/uL Chloride (98-107) mmol/L Carbon Dioxide (22-30) mmol/L Glucose (74-99) mg/dL POC Glucose (mg/dL) 226 H 122 H 129 H (70-110) mg/dL Calcium (8.4-10.2) mg/dL Total Protein (6.3-8.2) g/dL Albumin (3.5-5.0) g/dL 06/02/24 06/02/24 06/02/24 Range/Units 07:01 07:01 11:24 RBC 3.01 L (4.30-5.90) m/uL Hgb 8.2 L (13.0-17.5) gm/dL Hct 25.8 L (39.0-53.0) % RDW 22.5 H (11.5-15.5) % Plt Count 644 H (150-450) k/uL Chloride 115 H (98-107) mmol/L Carbon Dioxide 21 L (22-30) mmol/L Glucose 126 H (74-99) mg/dL POC Glucose (mg/dL) 213 H (70-110) mg/dL Calcium 8.2 L (8.4-10.2) mg/dL Total Protein 5.0 L (6.3-8.2) g/dL Albumin 2.1 L (3.5-5.0) g/dL
[2024-06-03 05:50] LABS: Glucose,Whole Blood 131 mg/dL (70-110)
[2024-06-03 07:32] LABS: Anisocytosis Moderate; HCT 30.6 % (39.0-53.0); HGB 8.9 gm/dL (13.0-17.5); Hypochromasia Marked; MCH 26.2 pg (25.0-35.0); MCHC 29.2 g/dL (31.0-37.0); MCV 89.6 fL (80.0-100.0); Macrocytosis Slight; Mean Platelet Volume 7.3; Platelet Count 669 k/uL (150-450); Poikilocytosis Slight; RBC 3.42 m/uL (4.30-5.90); RDW 22.2 % (11.5-15.5); WBC 10.9 k/uL (3.8-10.6)
[2024-06-03 07:57] LABS: African American GFR (CKD) >90 (>60 ml/min/1.73 sqM); Anion Gap 4 mmol/L; Blood Urea Nitrogen 16 mg/dL (9-20); Calcium 8.3 mg/dL (8.4-10.2); Carbon Dioxide 20 mmol/L (22-30); Chloride 114 mmol/L (98-107); Glucose 114 mg/dL (74-99); Non-African American GFR(CKD) >90 (>60 ml/min/1.73 sqM); Potassium 4.2 mmol/L (3.5-5.1); Sodium 138 mmol/L (137-145)
--- NOTE | 2024-06-03 10:12 | P.PN ---
Subjective Progress Note Date: 06/03/24 Principal diagnosis: Peripheral arterial disease, chronic right lower extremity wounds Patient seen and examined today as a follow-up. States pain has been well- controlled. He has been afebrile. Awaiting insurance authorization for subacute rehab. Yesterday was seen by De fitted for stump wire weaving loom setter and rigid dressing. Objective - Vital Signs Vital signs: Vital Signs Temp 97.1 F L 06/03/24 04:20 Pulse 82 06/03/24 04:20 Resp 12 06/03/24 04:20 BP 116/74 06/03/24 04:20 Pulse Ox 97 06/03/24 04:20 FiO2 Intake & Output 06/02/24 06/03/24 06/03/24 18:59 06:59 18:59 Intake Total 740 10 Output Total 275 500 Balance 465 -490 Weight 52.5 kg 53 kg Intake: IV 20 10 Invasive Line 5 20 10 Oral 720 Output: Urine 275 500 Other: Voiding Method Urinal Urinal Incontinent Incontinent # Voids 1 - Exam General appearance: The patient is alert, oriented, appears in no acute distress. HET: Head is normocephalic and atraumatic. Neck: Supple. Abdomen: Soft, nondistended. Extremities: Left AKA surgical site well-approximated with every other staple removed. Warm to the touch, no erythema or drainage. Right dldzm-lsk-ihxq amputation with stump wire weaving loom setter and rigid dressing in place. Surgical incision well-approximated with jeffrey. Warm to the touch. Neurological: No focal deficits. - Labs CBC & Chem 7: 06/03/24 06:39 06/03/24 06:39 Labs: Abnormal Lab Results - Last 24 Hours (Table) 06/02/24 06/02/24 06/02/24 Range/Units 11:24 16:50 20:28 WBC (3.8-10.6) k/uL RBC (4.30-5.90) m/uL Hgb (13.0-17.5) gm/dL Hct (39.0-53.0) % MCHC (31.0-37.0) g/dL RDW (11.5-15.5) % Plt Count (150-450) k/uL Chloride (98-107) mmol/L Carbon Dioxide (22-30) mmol/L Glucose (74-99) mg/dL POC Glucose (mg/dL) 213 H 68 L 214 H (70-110) mg/dL Calcium (8.4-10.2) mg/dL 06/03/24 06/03/24 06/03/24 Range/Units 05:48 06:39 06:39 WBC 10.9 H (3.8-10.6) k/uL RBC 3.42 L (4.30-5.90) m/uL Hgb 8.9 L (13.0-17.5) gm/dL Hct 30.6 L (39.0-53.0) % MCHC 29.2 L (31.0-37.0) g/dL RDW 22.2 H (11.5-15.5) % Plt Count 669 H (150-450) k/uL Chloride 114 H (98-107) mmol/L Carbon Dioxide 20 L (22-30) mmol/L Glucose 114 H (74-99) mg/dL POC Glucose (mg/dL) 131 H (70-110) mg/dL Calcium 8.3 L (8.4-10.2) mg/dL Assessment and Plan Assessment: 1. Severe peripheral arterial disease with chronic lower extremity ischemia's status post right fguui-dgs-yywx amputation 2. Chronic right lower extremity wounds 3. Diabetes mellitus 4. 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 New onset ventricular tachycardia, LifeVest ordered per cardiology 6. Acute on chronic heart failure with reduced EF 7. Ischemic cardiomyopathy 8. Coronary artery disease with previous CABG Plan: 1. Consistent carbohydrate diet 2. Daily dressing change to right AKA 4 x 4, wrap with Kerlix and apply stump wire weaving loom setter 3 Stump wire weaving loom setter and rigid dressing ordered 4. May resume Xarelto and Plavix 5. Physical therapy and Occupational Therapy ordered 6. The rest of jeffrey from left AKA removed. Steri-Strips applied. Thank you for this consultation. Patient is cleared from vascular surgery for discharge to [facility] The impression and plan of care has been dictated as directed. Dr. Velez I performed a history and examination of this patient, discussed the same with the dictator. I agree with the dictator's note ,documented as a scribe. Any additional findings or plans will be noted.
--- NOTE | 2024-06-03 10:58 | P.PN ---
Subjective Progress Note Date: 06/03/24 Patient is a pleasant 68-year-old male who presented to the hospital with right foot cellulitis, and we were consulted due to ventricular tachycardia as well as preoperative clearance. Preoperative clearance was given yesterday. The patient reports no chest pain, heart palpitations, or racing of his heart. Patient demonstrates sinus mechanism on telemetry overnight. He has no major cardiac complaints at this time. Blood pressure 129/72, heart rate 78, pulse ox 99% on room air. Repeat blood work reveals WBC 14.6, hemoglobin 9.5, platelet count 772. Sodium 137, potassium 4, BUN 19, creatinine 0.78. Telemetry sinus rhythm. Patient is scheduled for right ykkwv-ghe-gwjr amputation tomorrow. 06/01 Patient is seen today in follow-up. He underwent right cazty-mxy-etfo amputation today. Vascular is planning to resume Xarelto at 2.5 mg tonight if hemoglobin is stable and we we are in agreement to resume Plavix tomorrow and stop aspirin. Blood pressure 151/82, heart rate 81, pulse ox 99% on room air. Repeat blood work reveals hemoglobin 9.5, WBC 16.6, creatinine 0.73. 06/02 Patient is seen today in follow-up. No chest pain or shortness of breath. Vital signs have been stable, blood pressure 118/74, heart rate 80, pulse ox 100% on room air. Repeat blood work reveals hemoglobin 8.2, creatinine 0.84. Patient has been resumed on low-dose Xarelto as well as Plavix was resumed this morning. LifeVest is in place. 06/03 Patient denies having any palpitations, chest pain, shortness of breath. He said no problems overnight. He is anticipating discharge home today. Blood pressure 116/74, heart rate 82, pulse ox 97% on room air. Patient has been afebrile. Repeat blood work reveals hemoglobin 8.9, creatinine 0.76. GENERAL: Well-appearing, well-nourished and in no acute distress. NECK: Supple without JVD or thyromegaly. LUNGS: Breath sounds clear to auscultation bilaterally. Respiration equal and unlabored. No wheezes, rales or rhonchi. HEART: Regular rate and rhythm systolic murmur, rubs or gallops. S1 and S2 heard. EXTREMITIES: Dressing in place to the right AKA, previous left AKA. IMPRESSION: 1. Severe peripheral arterial disease with chronic lower extremity ischemia and right lower extremity wounds status post right AKA 06/01 2. Ventricular tachycardia 3. Acute on chronic heart failure with reduced EF, currently euvolemic 4. Ischemic cardiomyopathy, EF 25 to 30% 5. Coronary artery disease with previous CABG in 2014 6. History of CVA 7. History of carotid stenosis with previous endarterectomy 8. Recent left fkfnr-xyz-jcfn amputation and right great toe partial amputation 9. hypertension 10. hyperlipidemia 11. diabetes PLAN: Continue current cardiac medications: Atorvastatin 80 mg at bedtime, Plavix 75 mg daily, Farxiga 10 mg daily, Toprol XL 75 mg twice daily, Entresto 24-26 mg twice daily, Aldactone 25 mg daily, Xarelto LifeVest to be continued at discharge Patient is cleared for discharge from cardiology and may follow-up with Dr. LEAH Felder in 1 week. ICD evaluation will take place in the outpatient setting. Nurse practitioner note has been reviewed, I agree with documented findings and plan of care. Patient was seen and examined. Objective - Vital Signs Vital signs: Vital Signs Temp 97.1 F L 06/03/24 04:20 Pulse 82 06/03/24 04:20 Resp 12 06/03/24 04:20 BP 116/74 06/03/24 04:20 Pulse Ox 97 06/03/24 04:20 FiO2 Intake & Output 06/02/24 06/03/24 06/03/24 18:59 06:59 18:59 Intake Total 740 10 Output Total 275 500 Balance 465 -490 Weight 52.5 kg 53 kg Intake: IV 20 10 Invasive Line 5 20 10 Oral 720 Output: Urine 275 500 Other: Voiding Method Urinal Urinal Incontinent Incontinent # Voids 1 - Labs CBC & Chem 7: 06/03/24 06:39 06/03/24 06:39 Labs: Abnormal Lab Results - Last 24 Hours (Table) 06/02/24 06/02/24 06/02/24 Range/Units 11:24 16:50 20:28 WBC (3.8-10.6) k/uL RBC (4.30-5.90) m/uL Hgb (13.0-17.5) gm/dL Hct (39.0-53.0) % MCHC (31.0-37.0) g/dL RDW (11.5-15.5) % Plt Count (150-450) k/uL Chloride (98-107) mmol/L Carbon Dioxide (22-30) mmol/L Glucose (74-99) mg/dL POC Glucose (mg/dL) 213 H 68 L 214 H (70-110) mg/dL Calcium (8.4-10.2) mg/dL 06/03/24 06/03/24 06/03/24 Range/Units 05:48 06:39 06:39 WBC 10.9 H (3.8-10.6) k/uL RBC 3.42 L (4.30-5.90) m/uL Hgb 8.9 L (13.0-17.5) gm/dL Hct 30.6 L (39.0-53.0) % MCHC 29.2 L (31.0-37.0) g/dL RDW 22.2 H (11.5-15.5) % Plt Count 669 H (150-450) k/uL Chloride 114 H (98-107) mmol/L Carbon Dioxide 20 L (22-30) mmol/L Glucose 114 H (74-99) mg/dL POC Glucose (mg/dL) 131 H (70-110) mg/dL Calcium 8.3 L (8.4-10.2) mg/dL
[2024-06-03 11:55] LABS: Glucose,Whole Blood 144 mg/dL (70-110)
--- NOTE | 2024-06-03 15:29 | P.PN ---
Subjective Progress Note Date: 06/03/24 Principal diagnosis: Right diabetic foot ulcer and cellulitis Patient is a 68-year-old -[place] male with a past medical history significant for Coronary Artery Disease (CAD), Chest Pain / Angina, COPD, CVA/TIA, Diabetes Mellitus, Hyperlipidemia, Hypertension, Memory Impairment, Myocardial Infarction ([place]), Prostate Disorder, Sleep Apnea/CPAP/BIPAP, Vascular Disorder in this patient who recently did have left vbndg-bbs-rckr amputation and also debridement of the right big toe wound now being readmitted to the hospital with worsening right foot wound and cellulitis.Patient is status post right rwliv-ldn-gbak potation completed on 06/01/2024. On today's evaluation that is 06/03/2024, the patient continues to be afebrile, the patient is on room air and breathing comfortably, the Pt denies having any chest pain or cough, the patient denies having any abdominal pain no vomiting or any diarrhea patient complaining of pain to the right gluteal pressure ulcer. Patient white count 10.9, creatinine 0.76 Objective - Vital Signs Vital signs: Vital Signs Temp 97.3 F L 06/03/24 08:00 Pulse 82 06/03/24 08:00 Resp 18 06/03/24 08:00 BP 102/60 06/03/24 08:00 Pulse Ox 98 06/03/24 08:00 FiO2 Intake & Output 06/02/24 06/03/24 06/03/24 18:59 06:59 18:59 Intake Total 740 10 Output Total 275 500 Balance 465 -490 Weight 52.5 kg 53 kg Intake: IV 20 10 Invasive Line 5 20 10 Oral 720 Output: Urine 275 500 Other: Voiding Method Urinal Urinal Urinal Incontinent Incontinent Incontinent # Voids 1 - Exam GENERAL DESCRIPTION: An elderly male lying in bed in no distress RESPIRATORY SYSTEM: Unlabored breathing , decreased breath sounds at bases HEART: S1 S2 regular rate and rhythm , ABDOMEN: Soft , no tenderness, right gluteal area did have a pressure ulcer stage III with slough tissue no surrounding redness EXTREMITIES: Right AKA stump is currently dressed - Labs CBC & Chem 7: 06/03/24 06:39 06/03/24 06:39 Labs: Abnormal Lab Results - Last 24 Hours (Table) 06/02/24 06/02/24 06/03/24 Range/Units 16:50 20:28 05:48 WBC (3.8-10.6) k/uL RBC (4.30-5.90) m/uL Hgb (13.0-17.5) gm/dL Hct (39.0-53.0) % MCHC (31.0-37.0) g/dL RDW (11.5-15.5) % Plt Count (150-450) k/uL Chloride (98-107) mmol/L Carbon Dioxide (22-30) mmol/L Glucose (74-99) mg/dL POC Glucose (mg/dL) 68 L 214 H 131 H (70-110) mg/dL Calcium (8.4-10.2) mg/dL 06/03/24 06/03/24 06/03/24 Range/Units 06:39 06:39 11:49 WBC 10.9 H (3.8-10.6) k/uL RBC 3.42 L (4.30-5.90) m/uL Hgb 8.9 L (13.0-17.5) gm/dL Hct 30.6 L (39.0-53.0) % MCHC 29.2 L (31.0-37.0) g/dL RDW 22.2 H (11.5-15.5) % Plt Count 669 H (150-450) k/uL Chloride 114 H (98-107) mmol/L Carbon Dioxide 20 L (22-30) mmol/L Glucose 114 H (74-99) mg/dL POC Glucose (mg/dL) 144 H (70-110) mg/dL Calcium 8.3 L (8.4-10.2) mg/dL Assessment and Plan (1) Diabetic foot ulcer Current Visit: Yes Status: Acute Code(s): E11.621 - TYPE 2 DIABETES MELLITUS WITH FOOT ULCER; L97.509 - NON-PRESSURE CHRONIC ULCER OTH PRT UNSP FOOT W UNSP SEVERITY SNOMED Code(s): 591050504 (2) Cellulitis of right foot Current Visit: Yes Status: Acute Code(s): L03.115 - CELLULITIS OF RIGHT LOWER LIMB SNOMED Code(s): 40529401703858488 (3) Pressure ulcer of right buttock, stage 3 Current Visit: Yes Status: Acute Code(s): L89.313 - PRESSURE ULCER OF RIGHT BUTTOCK, STAGE 3 SNOMED Code(s): 22253175130657 Plan: 1patient presented to hospital with worsening wound to the right foot in this patient who did have a history of diabetes mellitus also with a history of PAD and recent left islrh-wgq-wiyd amputation now concerning for worsening wound and cellulitis we will need to cover for both gram-positive as well as gram-negative pathogen 2-patient has been eval by vascular surgery and is status post right above-the- knee amputation patient did have normalization of his white count, we will discontinue cefepime and vancomycin 3patient did have a pressure ulcer to the gluteal area we will apply Medihoney followed by moist dressing and keep the area of the pressure Dictation was produced using [employer] dictation software. please excuse any grammatical, word or spelling errors. Time with Patient: Less than 30
[2024-06-03 16:30] LABS: Glucose,Whole Blood 155 mg/dL (70-110)
[2024-06-03 20:20] LABS: Glucose,Whole Blood 160 mg/dL (70-110)
[2024-06-04] MEDS ORDERED: VANCOMYCIN TROUGH DUE 1 EACH MISC MISCELLANE ONE (04:00)
[2024-06-04 06:09] LABS: Glucose,Whole Blood 127 mg/dL (70-110)
--- NOTE | 2024-06-04 08:22 | P.PN ---
Subjective Progress Note Date: 06/03/24 This is a pleasant 68-year-old male who was recently admitted from [facility] status post recent left AKA and partial amputation on the right great toe although having worsening swelling and nonhealing and evaluated by vascular surgery recommending amputation. Initially patient wanted a second opinion and another vascular surgeon evaluated the case along with the patient recommending amputation with concerns of wet gangrene. Patient willing to proceed and underwent right AKA early this morning with Dr. Velez vascular surgery. Multiple other consultations including cardiology and infectious disease following maintained on antibiotics. Patient will be returning to [facility] on discharge. 06/02/2024 Patient is seen in follow-up this morning with no acute overnight issues noted. Patient reports he has minimal pain and is status post right AKA. Patient needed updated notes for PT/OT therapy as patient will be returning to [facility] and case management is following. Patient is afebrile and white count has normalized and maintained on IV antibiotics with infectious disease following. Patient will not require antibiotics on discharge. Vascular has cleared the patient for discharge to [facility]. Patient will require insurance authorization which is pending. 06/03/2024 Patient is seen in follow-up this morning awaiting to work with physical therapy as patient was having increased pain yesterday and unable to fully work with. Insurance has denied authorization to return to [facility] requesting a peer to peer. Case management following and family is also working on [place] paperwork regarding his benefits. Patient is afebrile with no reports of chest pain or shortness of breath. Patient reports his pain is controlled today and willing to work with physical therapy. Patient reports to tolerating diet and blood sugars have been well-controlled. Will continue current regimen and adjust acco rdingly. Review of systems: Constitutional: No reports of fatigue, fever, or chills Cardiovascular: No reports of chest pain or palpitations Respiratory: No reports of shortness of breath or cough GI: No reports of nausea, no reports of vomiting, no bowel movement today but did have a bowel movement yesterday : No reports of dysuria or retention Neurovascular: reports of generalized weakness All medications have been reviewed PHYSICAL EXAMINATION: GENERAL: The patient is alert and oriented x4, Well developed, well nourished. Elderly appearing HEENT: Pupils are round and equally reacting to light. EOMI. no scleral icterus. No conjunctival pallor. Normocephalic, atraumatic. No pharyngeal erythema. No thyromegaly. CARDIOVASCULAR: S1 and S2 muffled PULMONARY: diminished breath sounds bilaterally with no wheezing or rhonchi noted. ABDOMEN: soft. Nontender on exam. Thin. non-distended, normoactive bowel sounds. No palpable organomegaly. MUSCULOSKELETAL: No joint swelling or deformity. EXTREMITIES: No cyanosis, clubbing, or pedal edema. Bilateral lower extremities with AKA's noted. Surgical dressing on the right AKA is dry and intact recent left AKA with jeffrey that have been removed every other and appear well- approximated with no drainage, redness, or swelling noted NEUROLOGICAL: Gross neurological examination did not reveal any focal deficits. Diffuse weakness SKIN: No rashes. Assessment: Severe right foot cellulitis with failure of outpatient treatment with recent partial amputation of the right great toe on last admission, status post right AKA this admission Severe peripheral vascular disease Status post recent left nhysu-odf-zxep amputation on last admission Nonsustained ventricular tachycardia History of chronic anemia Chronic obstructive pulmonary disease, not in exacerbation Congestive heart failure with chronic systolic dysfunction, EF is 25 to 30% Possible ischemic cardiomyopathy Diabetes mellitus GI prophylaxis DVT prophylaxis Full code Plan: Recommend to continue with current medications and management with multiple consultations following. Patient is status post right AKA and recent left AKA on last admission. Plan is to return to [facility] and will require insurance authorization. Per case management [id number] was requested by insurance as authorization was denied and physician on-call requesting updated PT/OT therapy notes. Awaiting physical therapy reevaluation today. Case management following and awaiting updated PT/OT therapy notes Infectious disease following and patient is maintained on antibiotics and will continue for now. Will not require antibiotics on discharge Continue with local wound care per vascular surgery. Multiple jeffrey including every other staple on the left recent AKA have been removed and incision is well-approximated Continue monitoring Accu-Cheks before meals and at bedtime and will adjust insulins accordingly Due to multiple complex medical issues, overall prognosis is guarded Possible discharge in the next 24 to 48 hours The impression and plan of care has been dictated by Quynh Berg nurse practitioner as directed. Dr. Rebecca MD I have performed a history and examination and MDM of this patient, discussed the same with the dictator, and agree with the dictator's assessment and plan as written ,documented as a scribe. Based on total visit time, I have performed more than 50% of the visit. Any additional findings or plans will be noted. Objective - Vital Signs Vital signs: Vital Signs Temp 97.1 F L 06/03/24 04:20 Pulse 82 06/03/24 04:20 Resp 12 06/03/24 04:20 BP 116/74 06/03/24 04:20 Pulse Ox 97 06/03/24 04:20 FiO2 Intake & Output 06/02/24 06/03/24 06/03/24 18:59 06:59 18:59 Intake Total 740 10 Output Total 275 500 Balance 465 -490 Weight 52.5 kg 53 kg Intake: IV 20 10 Invasive Line 5 20 10 Oral 720 Output: Urine 275 500 Other: Voiding Method Urinal Urinal Incontinent Incontinent # Voids 1 - Labs CBC & Chem 7: 06/03/24 06:39 06/03/24 06:39 Labs: Abnormal Lab Results - Last 24 Hours (Table) 06/02/24 06/02/24 06/02/24 Range/Units 11:24 16:50 20:28 WBC (3.8-10.6) k/uL RBC (4.30-5.90) m/uL Hgb (13.0-17.5) gm/dL Hct (39.0-53.0) % MCHC (31.0-37.0) g/dL RDW (11.5-15.5) % Plt Count (150-450) k/uL Chloride (98-107) mmol/L Carbon Dioxide (22-30) mmol/L Glucose (74-99) mg/dL POC Glucose (mg/dL) 213 H 68 L 214 H (70-110) mg/dL Calcium (8.4-10.2) mg/dL 06/03/24 06/03/24 06/03/24 Range/Units 05:48 06:39 06:39 WBC 10.9 H (3.8-10.6) k/uL RBC 3.42 L (4.30-5.90) m/uL Hgb 8.9 L (13.0-17.5) gm/dL Hct 30.6 L (39.0-53.0) % MCHC 29.2 L (31.0-37.0) g/dL RDW 22.2 H (11.5-15.5) % Plt Count 669 H (150-450) k/uL Chloride 114 H (98-107) mmol/L Carbon Dioxide 20 L (22-30) mmol/L Glucose 114 H (74-99) mg/dL POC Glucose (mg/dL) 131 H (70-110) mg/dL Calcium 8.3 L (8.4-10.2) mg/dL
[2024-06-04 11:47] LABS: Glucose,Whole Blood 151 mg/dL (70-110)
--- NOTE | 2024-06-04 12:25 | P.PN ---
Subjective Progress Note Date: 06/04/24 Principal diagnosis: Peripheral arterial disease, chronic right lower extremity wounds Patient seen and examined today as a follow-up. No acute changes overnight. No complaints. Pain well-managed right AKA. Patient is waiting authorization for subacute rehab. Objective - Vital Signs Vital signs: Vital Signs Temp 98.1 F 06/04/24 07:54 Pulse 81 06/04/24 07:54 Resp 18 06/04/24 07:54 BP 130/73 06/04/24 07:54 Pulse Ox 100 06/04/24 07:54 FiO2 Intake & Output 06/03/24 06/04/24 06/04/24 18:59 06:59 18:59 Intake Total 540 Output Total 650 575 Balance -650 -35 Weight 52 kg Intake: Oral 540 Output: Urine 650 575 Other: Voiding Method Urinal Urinal Incontinent Incontinent # Voids 4 - Exam General appearance: The patient is alert, oriented, appears in no acute distress. HET: Head is normocephalic and atraumatic. Neck: Supple. Abdomen: Soft, nondistended. Extremities: Left AKA surgical site well-approximated, Steri-Strips in place. Right qvopq-fet-wvjx amputation surgical site well-approximated with jeffrey, no drainage or bleeding. Stump cooker pie filling reapplied. Neurological: No focal deficits. - Labs CBC & Chem 7: 06/03/24 06:39 06/03/24 06:39 Labs: Abnormal Lab Results - Last 24 Hours (Table) 06/03/24 06/03/24 06/03/24 Range/Units 11:49 16:28 20:19 POC Glucose (mg/dL) 144 H 155 H 160 H (70-110) mg/dL 06/04/24 Range/Units 06:08 POC Glucose (mg/dL) 127 H (70-110) mg/dL Assessment and Plan Assessment: 1. Severe peripheral arterial disease with chronic lower extremity ischemia's status post right snlmi-kyw-pims amputation 2. Chronic right lower extremity wounds 3. Diabetes mellitus 4. 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 New onset ventricular tachycardia, LifeVest ordered per cardiology 6. Acute on chronic heart failure with reduced EF 7. Ischemic cardiomyopathy 8. Coronary artery disease with previous CABG Plan: 1. Consistent carbohydrate diet 2. Keep stump cooker pie filling in place, rigid dressing when transferring 3. Continue with physical therapy Thank you for this consultation. Patient is cleared from vascular surgery for discharge to [facility]. We will sign off at this time. The impression and plan of care has been dictated as directed. Dr. Velez I performed a history and examination of this patient, discussed the same with the dictator. I agree with the dictator's note ,documented as a scribe. Any additional findings or plans will be noted.
--- NOTE | 2024-06-04 14:50 | P.PN ---
Subjective Progress Note Date: 06/04/24 Patient is a pleasant 68-year-old male who presented to the hospital with right foot cellulitis, and we were consulted due to ventricular tachycardia as well as preoperative clearance. Preoperative clearance was given yesterday. The patient reports no chest pain, heart palpitations, or racing of his heart. Patient demonstrates sinus mechanism on telemetry overnight. He has no major cardiac complaints at this time. Blood pressure 129/72, heart rate 78, pulse ox 99% on room air. Repeat blood work reveals WBC 14.6, hemoglobin 9.5, platelet count 772. Sodium 137, potassium 4, BUN 19, creatinine 0.78. Telemetry sinus rhythm. Patient is scheduled for right mhrmh-bmb-ukfe amputation tomorrow. 06/01 Patient is seen today in follow-up. He underwent right zhejy-dhc-rhno amputation today. Vascular is planning to resume Xarelto at 2.5 mg tonight if hemoglobin is stable and we we are in agreement to resume Plavix tomorrow and stop aspirin. Blood pressure 151/82, heart rate 81, pulse ox 99% on room air. Repeat blood work reveals hemoglobin 9.5, WBC 16.6, creatinine 0.73. 06/02 Patient is seen today in follow-up. No chest pain or shortness of breath. Vital signs have been stable, blood pressure 118/74, heart rate 80, pulse ox 100% on room air. Repeat blood work reveals hemoglobin 8.2, creatinine 0.84. Patient has been resumed on low-dose Xarelto as well as Plavix was resumed this morning. LifeVest is in place. 06/03 Patient denies having any palpitations, chest pain, shortness of breath. He said no problems overnight. He is anticipating discharge home today. Blood pressure 116/74, heart rate 82, pulse ox 97% on room air. Patient has been afebrile. Repeat blood work reveals hemoglobin 8.9, creatinine 0.76. 06/04 Patient denies chest pain or shortness of breath. Blood pressure 130/73, heart rate 81, pulse ox 100% on room air. GENERAL: Well-appearing, well-nourished and in no acute distress. NECK: Supple without JVD or thyromegaly. LUNGS: Breath sounds clear to auscultation bilaterally. Respiration equal and unlabored. No wheezes, rales or rhonchi. HEART: Regular rate and rhythm systolic murmur, rubs or gallops. S1 and S2 heard. EXTREMITIES: Dressing in place to the right AKA, previous left AKA. IMPRESSION: 1. Severe peripheral arterial disease with chronic lower extremity ischemia and right lower extremity wounds status post right AKA 06/01 2. Ventricular tachycardia 3. Acute on chronic heart failure with reduced EF, currently euvolemic 4. Ischemic cardiomyopathy, EF 25 to 30% 5. Coronary artery disease with previous CABG in 2014 6. History of CVA 7. History of carotid stenosis with previous endarterectomy 8. Recent left usafl-rvh-mbac amputation and right great toe partial amputation 9. hypertension 10. hyperlipidemia 11. diabetes PLAN: Continue current cardiac medications: Atorvastatin 80 mg at bedtime, Plavix 75 mg daily, Farxiga 10 mg daily, Toprol XL 75 mg twice daily, Entresto 24-26 mg twice daily, Aldactone 25 mg daily, Xarelto LifeVest to be continued at discharge Patient is cleared for discharge from cardiology and may follow-up with Dr. LEAH Felder in 1 week. ICD evaluation will take place in the outpatient setting. Nurse practitioner note has been reviewed, I agree with documented findings and plan of care. Patient was seen and examined. Objective - Vital Signs Vital signs: Vital Signs Temp 98.1 F 06/04/24 07:54 Pulse 81 06/04/24 07:54 Resp 18 06/04/24 07:54 BP 130/73 06/04/24 07:54 Pulse Ox 100 06/04/24 07:54 FiO2 Intake & Output 06/03/24 06/04/24 06/04/24 18:59 06:59 18:59 Intake Total 540 240 Output Total 650 575 Balance -650 -35 240 Weight 52 kg Intake: Oral 540 240 Output: Urine 650 575 Other: Voiding Method Urinal Urinal Incontinent Incontinent # Voids 4 # Bowel Movements 1 - Labs CBC & Chem 7: 06/03/24 06:39 06/03/24 06:39 Labs: Abnormal Lab Results - Last 24 Hours (Table) 06/03/24 06/03/24 06/03/24 Range/Units 11:49 16:28 20:19 POC Glucose (mg/dL) 144 H 155 H 160 H (70-110) mg/dL 06/04/24 Range/Units 06:08 POC Glucose (mg/dL) 127 H (70-110) mg/dL
--- NOTE | 2024-06-04 15:16 | P.PN ---
Subjective Progress Note Date: 06/04/24 Principal diagnosis: Right diabetic foot ulcer and cellulitis Patient is a 68-year-old -[place] male with a past medical history significant for Coronary Artery Disease (CAD), Chest Pain / Angina, COPD, CVA/TIA, Diabetes Mellitus, Hyperlipidemia, Hypertension, Memory Impairment, Myocardial Infarction ([place]), Prostate Disorder, Sleep Apnea/CPAP/BIPAP, Vascular Disorder in this patient who recently did have left hqxba-yfc-gemc amputation and also debridement of the right big toe wound now being readmitted to the hospital with worsening right foot wound and cellulitis.Patient is status post right opwjg-mvx-bmoa potation completed on 06/01/2024. On today's evaluation that is 06/04/2024, Patient is afebrile patient is currently on room air and denies having any shortness of breath, the patient denies any chest pain or cough, the patient denies any nausea vomiting did not have any abdominal pain and no diarrhea has been complaining of pain to the right gluteal wound area pain to the AKA stump is currently controlled. Patient did have a vancomycin trough of 14.9 no CBC was done today Objective - Vital Signs Vital signs: Vital Signs Temp 98.8 F 06/04/24 11:15 Pulse 77 06/04/24 11:15 Resp 16 06/04/24 11:15 BP 141/86 06/04/24 11:15 Pulse Ox 98 06/04/24 11:15 FiO2 Intake & Output 06/03/24 06/04/24 06/04/24 18:59 06:59 18:59 Intake Total 540 240 Output Total 650 575 350 Balance -650 -35 -110 Weight 52 kg Intake: Oral 540 240 Output: Urine 650 575 350 Other: Voiding Method Urinal Urinal Incontinent Incontinent # Voids 4 # Bowel Movements 1 - Exam GENERAL DESCRIPTION: An elderly male lying in bed in no distress RESPIRATORY SYSTEM: Unlabored breathing , decreased breath sounds at bases HEART: S1 S2 regular rate and rhythm , ABDOMEN: Soft , no tenderness, right gluteal area did have a pressure ulcer stage III with slough tissue no surrounding redness EXTREMITIES: Right AKA stump is currently dressed - Labs CBC & Chem 7: 06/03/24 06:39 06/03/24 06:39 Labs: Abnormal Lab Results - Last 24 Hours (Table) 0906/03/24 06/04/24 Range/Units 16:28 20:19 06:08 POC Glucose (mg/dL) 155 H 160 H 127 H (70-110) mg/dL 06/04/24 Range/Units 11:46 POC Glucose (mg/dL) 151 H (70-110) mg/dL Assessment and Plan (1) Diabetic foot ulcer Current Visit: Yes Status: Acute Code(s): E11.621 - TYPE 2 DIABETES MELLITUS WITH FOOT ULCER; L97.509 - NON-PRESSURE CHRONIC ULCER OTH PRT UNSP FOOT W UNSP SEVERITY SNOMED Code(s): 602652067 (2) Cellulitis of right foot Current Visit: Yes Status: Acute Code(s): L03.115 - CELLULITIS OF RIGHT LOWER LIMB SNOMED Code(s): 65319366600092534 (3) Pressure ulcer of right buttock, stage 3 Current Visit: Yes Status: Acute Code(s): L89.313 - PRESSURE ULCER OF RIGHT BUTTOCK, STAGE 3 SNOMED Code(s): 63220227625891 Plan: 1patient presented to hospital with worsening wound to the right foot in this patient who did have a history of diabetes mellitus also with a history of PAD and recent left wjuzo-vev-fwpe amputation now concerning for worsening wound and cellulitis we will need to cover for both gram-positive as well as gram-negative pathogen 2-patient has been eval by vascular surgery and is status post right above -the-knee amputation patient did have normalization of his white count, antibiotics can be safely discontinued 3patient with stage III ulcer to the gluteal area advise Medihoney followed by moist dressing and keep the area of the pressure Dictation was produced using [employer] dictation software. please excuse any grammatical, word or spelling errors.
--- NOTE | 2024-06-04 15:26 | P.PN ---
Subjective Progress Note Date: 06/04/24 This is a pleasant 68-year-old male who was recently admitted from [facility] status post recent left AKA and partial amputation on the right great toe although having worsening swelling and nonhealing and evaluated by vascular surgery recommending amputation. Initially patient wanted a second opinion and another vascular surgeon evaluated the case along with the patient recommending amputation with concerns of wet gangrene. Patient willing to proceed and underwent right AKA early this morning with Dr. Velez vascular surgery. Multiple other consultations including cardiology and infectious disease fo llowing maintained on antibiotics. Patient will be returning to [facility] on discharge. 06/02/2024 Patient is seen in follow-up this morning with no acute overnight issues noted. Patient reports he has minimal pain and is status post right AKA. Patient needed updated notes for PT/OT therapy as patient will be returning to [facility] and case management is following. Patient is afebrile and white count has normalized and maintained on IV antibiotics with infectious disease following. Patient will not require antibiotics on discharge. Vascular has cleared the patient for discharge to [facility]. Patient will require insurance authorization which is pending. 06/03/2024 Patient is seen in follow-up this morning awaiting to work with physical therapy as patient was having increased pain yesterday and unable to fully work with. Insurance has denied authorization to return to [facility] requesting a peer to peer. Case management following and family is also working on [place] paperwork regarding his benefits. Patient is afebrile with no reports of chest pain or shortness of breath. Patient reports his pain is controlled today and willing to work with physical therapy. Patient reports to tolerating diet and blood sugars have been well-controlled. Will continue current regimen and adjust accordingly. 06/04/2024 Patient is evaluated today in follow up on the medical floor. Postoperative bilateral lower extremity emcuf-yce-byck amputations. Reports pain about a 6 out of 10 states that the pain medication is bringing the pain down he receives it. He is receiving IV morphine and oral [place]. He is currently pending authorization for discharge to a [place] rehab facility. Review of systems: Constitutional: No reports of fatigue, fever, or chills Cardiovascular: No reports of chest pain or palpitations Respiratory: No reports of shortness of breath or cough GI: No reports of nausea, no reports of vomiting, no bowel movement today but did have a bowel movement yesterday : No reports of dysuria or retention Neurovascular: reports of generalized weakness All medications have been reviewed PHYSICAL EXAMINATION: GENERAL: The patient is alert and oriented x4, Well developed, well nourished. Elderly appearing HEENT: Pupils are round and equally reacting to light. EOMI. no scleral icterus. No conjunctival pallor. Normocephalic, atraumatic. No pharyngeal erythema. No thyromegaly. CARDIOVASCULAR: S1 and S2 muffled PULMONARY: diminished breath sounds bilaterally with no wheezing or rhonchi noted. ABDOMEN: soft. Nontender on exam. Thin. non-distended, normoactive bowel sounds. No palpable organomegaly. MUSCULOSKELETAL: No joint swelling or deformity. EXTREMITIES: No cyanosis, clubbing, or pedal edema. Bilateral lower extremities with AKA's noted. Surgical dressing on the right AKA is dry and intact recent left AKA with jeffrey that have been removed every other and appear well- approximated with no drainage, redness, or swelling noted NEUROLOGICAL: Gross neurological examination did not reveal any focal deficits. Diffuse weakness SKIN: No rashes. Assessment: Severe right foot cellulitis with failure of outpatient treatment with recent partial amputation of the right great toe on last admission, status post right AKA this admission Severe peripheral vascular disease Status post recent left twoio-pam-unjw amputation on last admission Nonsustained ventricular tachycardia History of chronic anemia Chronic obstructive pulmonary disease, not in exacerbation Congestive heart failure with chronic systolic dysfunction, EF is 25 to 30% Possible ischemic cardiomyopathy Diabetes mellitus GI prophylaxis DVT prophylaxis Full code Plan: Recommend to continue with current medications and management with multiple consultations following. Patient is status post right AKA and recent left AKA on last admission. Plan is to return to [facility] and will require insurance authorization. Per case management [id number] was requested by insurance as authorization was denied and physician on-call requesting updated PT/OT therapy notes. Awaiting physical therapy reevaluation today. Case management following and awaiting updated PT/OT therapy notes Infectious disease following and patient is maintained on antibiotics and will continue for now. Will not require antibiotics on discharge Continue with local wound care per vascular surgery. Multiple jeffrey including every other staple on the left recent AKA have been removed and incision is well-approximated Continue monitoring Accu-Cheks before meals and at bedtime and will adjust insulins accordingly Due to multiple complex medical issues, overall prognosis is guarded Possible discharge in the next 24 to 48 hours The impression and plan of care has been dictated by Caprice Stern, Pr actitioner as directed. Dr. Rebecca MD I have performed a history and physical examination and medical decision making of this patient, discussed the same with the dictator, and agree with the dicta tors assessment and plan as written, documented as a scribe. Based on total visit time, I have performed more than 50% of this visit. Objective - Vital Signs Vital signs: Vital Signs Temp 98.8 F 06/04/24 11:15 Pulse 77 06/04/24 11:15 Resp 16 06/04/24 11:15 BP 141/86 06/04/24 11:15 Pulse Ox 98 06/04/24 11:15 FiO2 Intake & Output 06/03/24 06/04/24 06/04/24 18:59 06:59 18:59 Intake Total 540 462 Output Total 650 575 350 Balance -650 -35 112 Weight 52 kg Intake: Oral 540 462 Output: Urine 650 575 350 Other: Voiding Method Urinal Urinal Incontinent Incontinent # Voids 4 # Bowel Movements 1 - Labs CBC & Chem 7: 06/03/24 06:39 06/03/24 06:39 Labs: Abnormal Lab Results - Last 24 Hours (Table) 06/03/24 06/03/24 06/04/24 Range/Units 16:28 20:19 06:08 POC Glucose (mg/dL) 155 H 160 H 127 H (70-110) mg/dL 06/04/24 Range/Units 11:46 POC Glucose (mg/dL) 151 H (70-110) mg/dL Assessment and Plan Time with Patient: Less than 30
[2024-06-04 16:39] LABS: Glucose,Whole Blood 185 mg/dL (70-110)
[2024-06-04 20:13] LABS: Glucose,Whole Blood 319 mg/dL (70-110)
[2024-06-05 06:01] LABS: Glucose,Whole Blood 178 mg/dL (70-110)
[2024-06-05 07:49] LABS: African American GFR (CKD) >90 (>60 ml/min/1.73 sqM); Anion Gap 6 mmol/L; Blood Urea Nitrogen 16 mg/dL (9-20); Calcium 8.7 mg/dL (8.4-10.2); Carbon Dioxide 24 mmol/L (22-30); Chloride 107 mmol/L (98-107); Glucose 110 mg/dL (74-99); Non-African American GFR(CKD) >90 (>60 ml/min/1.73 sqM); Potassium 4.9 mmol/L (3.5-5.1); Sodium 137 mmol/L (137-145)
[2024-06-05 11:48] LABS: Glucose,Whole Blood 151 mg/dL (70-110)
--- NOTE | 2024-06-05 14:42 | P.PN ---
Subjective Progress Note Date: 06/05/24 This is a pleasant 68-year-old male who was recently admitted from [facility] status post recent left AKA and partial amputation on the right great toe although having worsening swelling and nonhealing and evaluated by vascular surgery recommending amputation. Initially patient wanted a second opinion and another vascular surgeon evaluated the case along with the patient recommending amputation with concerns of wet gangrene. Patient willing to proceed and underwent right AKA early this morning with Dr. Velez vascular surgery. Multiple other consultations including cardiology and infectious disease fo llowing maintained on antibiotics. Patient will be returning to [facility] on discharge. 06/02/2024 Patient is seen in follow-up this morning with no acute overnight issues noted. Patient reports he has minimal pain and is status post right AKA. Patient needed updated notes for PT/OT therapy as patient will be returning to [facility] and case management is following. Patient is afebrile and white count has normalized and maintained on IV antibiotics with infectious disease following. Patient will not require antibiotics on discharge. Vascular has cleared the patient for discharge to [facility]. Patient will require insurance authorization which is pending. 06/03/2024 Patient is seen in follow-up this morning awaiting to work with physical therapy as patient was having increased pain yesterday and unable to fully work with. Insurance has denied authorization to return to [facility] requesting a peer to peer. Case management following and family is also working on [place] paperwork regarding his benefits. Patient is afebrile with no reports of chest pain or shortness of breath. Patient reports his pain is controlled today and willing to work with physical therapy. Patient reports to tolerating diet and blood sugars have been well-controlled. Will continue current regimen and adjust accordingly. 06/04/2024 Patient is evaluated today in follow up on the medical floor. Postoperative bilateral lower extremity uefiv-hfj-lurn amputations. Reports pain about a 6 out of 10 states that the pain medication is bringing the pain down he receives it. He is receiving IV morphine and oral [place]. He is currently pending authorization for discharge to a [place] rehab facility. 06/05/2024 Patient is evaluated in the medical floor with no acute complaints. He continues on gabapentin 6 mg 3 times a day as well as [place] 5 mg every 6 hours for pain control. Patient has a LifeVest at the bedside, he continues on Entresto. He is currently pending insurance authorization from the [place] for discharge to subacute rehab facility. His blood work today reveals a sodium level of 137, potassium 4.9, BUN of 16, creatinine of 0.71 blood glucose is in the 150s. Patient is afebrile 100% on room air heart rate of 61 normal sinus rhythm and a blood pressure 137/74. Review of systems: Constitutional: No reports of fatigue, fever, or chills Cardiovascular: No reports of chest pain or palpitations Respiratory: No reports of shortness of breath or cough GI: No reports of nausea, no reports of vomiting, no bowel movement today but did have a bowel movement yesterday : No reports of dysuria or retention Neurovascular: reports of generalized weakness All medications have been reviewed PHYSICAL EXAMINATION: GENERAL: The patient is alert and oriented x4, Well developed, well nourished. Elderly appearing HEENT: Pupils are round and equally reacting to light. EOMI. no scleral icterus. No conjunctival pallor. Normocephalic, atraumatic. No pharyngeal erythema. No thyromegaly. CARDIOVASCULAR: S1 and S2 muffled PULMONARY: diminished breath sounds bilaterally with no wheezing or rhonchi n oted. ABDOMEN: soft. Nontender on exam. Thin. non-distended, normoactive bowel sounds. No palpable organomegaly. MUSCULOSKELETAL: No joint swelling or deformity. EXTREMITIES: No cyanosis, clubbing, or pedal edema. Bilateral lower extremities with AKA's noted. Surgical dressing on the right AKA is dry and intact recent left AKA with jeffrey that have been removed every other and appear well-a pproximated with no drainage, redness, or swelling noted NEUROLOGICAL: Gross neurological examination did not reveal any focal deficits. Diffuse weakness SKIN: No rashes. Assessment: Severe right foot cellulitis with failure of outpatient treatment with recent partial amputation of the right great toe on last admission, status post right AKA this admission Severe peripheral vascular disease Status post recent left gpsmd-mfr-mjly amputation on last admission Nonsustained ventricular tachycardia History of chronic anemia Chronic obstructive pulmonary disease, not in exacerbation Congestive heart failure with acute on chronic systolic dysfunction, EF is 25 to 30% Ischemic cardiomyopathy with an EF of 25 to 30% Coronary artery disease with prior CABG in 2015 History of stroke History of carotid artery stenosis with prior carotid endarterectomy Hypertension Hyperlipidemia Diabetes mellitus type II GI prophylaxis DVT prophylaxis Full code Plan: Recommend to continue with current medications and management with multiple consultations following. Patient is status post right AKA and recent left AKA on last admission. Plan is to return to [facility] and will require insurance authorization. Per case management [id number] was requested by insurance as authorization was denied and physician on-call requesting updated PT/OT therapy notes. Awaiting physical therapy reevaluation today. Case management following and awaiting updated PT/OT therapy notes Infectious disease following and patient is maintained on antibiotics and will continue for now. Will not require antibiotics on discharge Continue with local wound care per vascular surgery. Multiple jeffrey including every other staple on the left recent AKA have been removed and incision is well-approximated Continue monitoring Accu-Cheks before meals and at bedtime and will adjust insulins accordingly Cardiology recommending a LifeVest to continue on discharge Due to multiple complex medical issues, overall prognosis is guarded Discharge will not be until Friday at the earliest secondary to patient require insurance authorization and working with the [place] for patient to discharge to a subacute rehab facility. There is no social work available in house for assistance today on Friday. The impression and plan of care has been dictated by Caprice Stern Nurse Practitioner as directed. Dr. Rebecca MD I have performed a history and physical examination and medical decision making of this patient, discussed the same with the dictator, and agree with the dictators assessment and plan as written, documented as a scribe. Based on total visit time, I have performed more than 50% of this visit. Objective - Vital Signs Vital signs: Vital Signs Temp 96.7 F L 06/05/24 08:00 Pulse 86 06/05/24 08:00 Resp 16 06/05/24 08:00 BP 110/53 06/05/24 08:00 Pulse Ox 96 06/05/24 08:00 FiO2 Intake & Output 06/04/24 06/05/24 06/05/24 18:59 06:59 18:59 Intake Total 462 1320 118 Output Total 350 Balance 112 1320 118 Weight 51 kg Intake: Oral 462 1320 118 Output: Urine 350 Other: Voiding Method Urinal Urinal Incontinent Diaper Incontinent # Bowel Movements 1 - Labs CBC & Chem 7: 06/03/24 06:39 06/05/24 06:39 Labs: Abnormal Lab Results - Last 24 Hours (Table) 06/04/24 06/04/24 06/04/24 Range/Units 11:46 16:37 20:11 Glucose (74-99) mg/dL POC Glucose (mg/dL) 151 H 185 H 319 H (70-110) mg/dL 06/05/24 06/05/24 Range/Units 05:59 06:39 Glucose 110 H (74-99) mg/dL POC Glucose (mg/dL) 178 H (70-110) mg/dL Assessment and Plan Time with Patient: Less than 30
[2024-06-05 16:35] LABS: Glucose,Whole Blood 171 mg/dL (70-110)
--- NOTE | 2024-06-05 16:45 | P.PN ---
Subjective Progress Note Date: 06/05/24 Principal diagnosis: Right diabetic foot ulcer and cellulitis Patient is a 68-year-old -Colombian male with a past medical history significant for Coronary Artery Disease (CAD), Chest Pain / Angina, COPD, CVA/TIA, Diabetes Mellitus, Hyperlipidemia, Hypertension, Memory Impairment, Myocardial Infarction ([place]), Prostate Disorder, Sleep Apnea/CPAP/BIPAP, Vascular Disorder in this patient who recently did have left qjrlr-sub-pawu amputation and also debridement of the right big toe wound now being readmitted to the hospital with worsening right foot wound and cellulitis.Patient is status post right gjfdq-iua-ufin potation completed on 06/01/2024. On today's evaluation that is 06/05/2024, patient has been afebrile, patient is breathing comfortably and is currently on room air, patient denies having any significant cough no chest pain shortness of breath, patient denies nausea vomiting or diarrhea and no abdominal pain pain to the right gluteal area is currently controlled as well as pain to the bilateral AKA stump. Patient did have a creatinine 0.71 no CBC was done today Objective - Vital Signs Vital signs: Vital Signs Temp 98.1 F 06/05/24 11:50 Pulse 61 06/05/24 11:50 Resp 16 06/05/24 11:50 BP 137/74 06/05/24 11:50 Pulse Ox 100 06/05/24 11:50 FiO2 Intake & Output 06/04/24 06/05/24 06/05/24 18:59 06:59 18:59 Intake Total 462 1320 358 Output Total 350 200 Balance 112 1320 158 Weight 51 kg Intake: Oral 462 1320 358 Output: Urine 350 200 Other: Voiding Method Urinal Urinal Incontinent Diaper Incontinent # Voids 1 # Bowel Movements 1 1 - Exam GENERAL DESCRIPTION: An elderly male lying in bed in no distress RESPIRATORY SYSTEM: Unlabored breathing , decreased breath sounds at bases HEART: S1 S2 regular rate and rhythm , ABDOMEN: Soft , no tenderness, right gluteal area did have a pressure ulcer stage III with slough tissue no surrounding redness EXTREMITIES: Right AKA stump is currently dressed - Labs CBC & Chem 7: 06/03/24 06:39 06/05/24 06:39 Labs: Abnormal Lab Results - Last 24 Hours (Table) 06/04/24 06/05/2424 Range/Units 20:11 05:59 06:39 Glucose 110 H (74-99) mg/dL POC Glucose (mg/dL) 319 H 178 H (70-110) mg/dL 06/05/24 06/05/24 Range/Units 11:46 16:33 Glucose (74-99) mg/dL POC Glucose (mg/dL) 151 H 171 H (70-110) mg/dL Assessment and Plan (1) Diabetic foot ulcer Current Visit: Yes Status: Acute Code(s): E11.621 - TYPE 2 DIABETES MELLITUS WITH FOOT ULCER; L97.509 - NON-PRESSURE CHRONIC ULCER OTH PRT UNSP FOOT W UNSP SEVERITY SNOMED Code(s): 224284877 (2) Cellulitis of right foot Current Visit: Yes Status: Acute Code(s): L03.115 - CELLULITIS OF RIGHT LOWER LIMB SNOMED Code(s): 85664771600281931 (3) Pressure ulcer of right buttock, stage 3 Current Visit: Yes Status: Acute Code(s): L89.313 - PRESSURE ULCER OF RIGHT BUTTOCK, STAGE 3 SNOMED Code(s): 39006595137817 Plan: 1patient presented to hospital with worsening wound to the right foot in this patient who did have a history of diabetes mellitus also with a history of PAD and recent left skmkp-jzq-pbkc amputation now concerning for worsening wound and cellulitis we will need to cover for both gram-positive as well as gram-negative pathogen 2-patient is status post right lauoc-uvx-njlt amputation patient did have normalization of his white count, antibiotics has been discontinued 3patient with stage III ulcer to the gluteal area advise Medihoney followed by moist dressing and keep the area of the pressure Question concern answered Dictation was produced using [employer] dictation software. please excuse any grammatical, word or spelling errors. Time with Patient: Less than 30
[2024-06-05 20:37] LABS: Glucose,Whole Blood 215 mg/dL (70-110)
[2024-06-06 06:11] LABS: Glucose,Whole Blood 247 mg/dL (70-110)
[2024-06-06 11:32] LABS: Glucose,Whole Blood 167 mg/dL (70-110)
--- NOTE | 2024-06-06 15:25 | P.PN ---
Subjective Progress Note Date: 06/06/24 Principal diagnosis: Right diabetic foot ulcer and cellulitis Patient is a 68-year-old -Malagasy male with a past medical history significant for Coronary Artery Disease (CAD), Chest Pain / Angina, COPD, CVA/TIA, Diabetes Mellitus, Hyperlipidemia, Hypertension, Memory Impairment, Myocardial Infarction ([place]), Prostate Disorder, Sleep Apnea/CPAP/BIPAP, Vascular Disorder in this patient who recently did have left wfabn-aej-ulbh amputation and also debridement of the right big toe wound now being readmitted to the hospital with worsening right foot wound and cellulitis.Patient is status post right dqhia-jcn-xvgc potation completed on 06/01/2024. On today's evaluation that is 06/06/2024, Patient is afebrile this morning patient denies having any chest pain shortness of breath or cough, the patient is breathing comfortably on room air, patient denies any abdominal pain no diarrhea no nausea no vomiting pain to the right gluteal area has decreased in intensity. No new lab has been obtained today Objective - Vital Signs Vital signs: Vital Signs Temp 98.2 F 06/06/24 12:45 Pulse 91 06/06/24 12:45 Resp 16 06/06/24 12:45 BP 100/70 06/06/24 12:45 Pulse Ox 99 06/06/24 12:45 FiO2 Intake & Output 06/05/24 06/06/24 06/06/24 18:59 06:59 18:59 Intake Total 1198 560 Output Total 200 1275 200 Balance 998 -715 -200 Weight 50 kg Intake: IV 20 Invasive Line 7 20 Oral 1198 540 Output: Urine 200 1275 200 Other: Voiding Method Urinal Urinal Diaper Diaper Incontinent Incontinent # Voids 1 1 # Bowel Movements 1 1 - Exam GENERAL DESCRIPTION: An elderly male lying in bed in no distress RESPIRATORY SYSTEM: Unlabored breathing , decreased breath sounds at bases HEART: S1 S2 regular rate and rhythm , ABDOMEN: Soft , no tenderness, right gluteal area did have a pressure ulcer stage III with slough tissue no surrounding redness EXTREMITIES: Right AKA stump is currently dressed - Labs CBC & Chem 7: 06/03/24 06:39 06/05/24 06:39 Labs: Abnormal Lab Results - Last 24 Hours (Table) 06/05/24 06/05/24 06/06/24 Range/Units 16:33 20:36 06:10 POC Glucose (mg/dL) 171 H 215 H 247 H (70-110) mg/dL 06/06/24 Range/Units 11:31 POC Glucose (mg/dL) 167 H (70-110) mg/dL Assessment and Plan (1) Diabetic foot ulcer Current Visit: Yes Status: Acute Code(s): E11.621 - TYPE 2 DIABETES MELLITUS WITH FOOT ULCER; L97.509 - NON-PRESSURE CHRONIC ULCER OTH PRT UNSP FOOT W UNSP SEVERITY SNOMED Code(s): 203859242 (2) Cellulitis of right foot Current Visit: Yes Status: Acute Code(s): L03.115 - CELLULITIS OF RIGHT LOWER LIMB SNOMED Code(s): 53711863278945069 (3) Pressure ulcer of right buttock, stage 3 Current Visit: Yes Status: Acute Code(s): L89.313 - PRESSURE ULCER OF RIGHT BUTTOCK, STAGE 3 SNOMED Code(s): 84742985839074 Plan: 1patient presented to hospital with worsening wound to the right foot in this patient who did have a history of diabetes mellitus also with a history of PAD and recent left rxolo-fyw-nbsy amputation now concerning for worsening wound and cellulitis we will need to cover for both gram-positive as well as gram-negative pathogen 2-patient is status post right cohym-qna-deot amputation patient did have normalization of his white count, antibiotics has been discontinued 3patient with stage III ulcer to the gluteal area advise Medihoney followed by moist dressing and keep the area of the pressure, regularly for antibiotics on d ischarge Dictation was produced using [employer] dictation software. please excuse any grammatical, word or spelling errors. Time with Patient: Less than 30
[2024-06-06 16:55] LABS: Glucose,Whole Blood 182 mg/dL (70-110)
--- NOTE | 2024-06-06 19:39 | P.PN ---
Subjective Progress Note Date: 06/06/24 This is a pleasant 68-year-old male who was recently admitted from [facility] status post recent left AKA and partial amputation on the right great toe although having worsening swelling and nonhealing and evaluated by vascular surgery recommending amputation. Initially patient wanted a second opinion and another vascular surgeon evaluated the case along with the patient recommending amputation with concerns of wet gangrene. Patient willing to proceed and underwent right AKA early this morning with Dr. Velez vascular surgery. Multiple other consultations including cardiology and infectious disease fo llowing maintained on antibiotics. Patient will be returning to [facility] on discharge. 06/02/2024 Patient is seen in follow-up this morning with no acute overnight issues noted. Patient reports he has minimal pain and is status post right AKA. Patient needed updated notes for PT/OT therapy as patient will be returning to [facility] and case management is following. Patient is afebrile and white count has normalized and maintained on IV antibiotics with infectious disease following. Patient will not require antibiotics on discharge. Vascular has cleared the patient for discharge to [facility]. Patient will require insurance authorization which is pending. 06/03/2024 Patient is seen in follow-up this morning awaiting to work with physical therapy as patient was having increased pain yesterday and unable to fully work with. Insurance has denied authorization to return to [facility] requesting a peer to peer. Case management following and family is also working on [place] paperwork regarding his benefits. Patient is afebrile with no reports of chest pain or shortness of breath. Patient reports his pain is controlled today and willing to work with physical therapy. Patient reports to tolerating diet and blood sugars have been well-controlled. Will continue current regimen and adjust accordingly. 06/04/2024 Patient is evaluated today in follow up on the medical floor. Postoperative bilateral lower extremity vnhxg-zbp-beyb amputations. Reports pain about a 6 out of 10 states that the pain medication is bringing the pain down he receives it. He is receiving IV morphine and oral Doon. He is currently pending authorization for discharge to a [place] rehab facility. 06/05/2024 Patient is evaluated in the medical floor with no acute complaints. He continues on gabapentin 6 mg 3 times a day as well as Doon 5 mg every 6 hours for pain control. Patient has a LifeVest at the bedside, he continues on Entresto. He is currently pending insurance authorization from the [place] for discharge to subacute rehab facility. His blood work today reveals a sodium level of 137, potassium 4.9, BUN of 16, creatinine of 0.71 blood glucose is in the 150s. Patient is afebrile 100% on room air heart rate of 61 normal sinus rhythm and a blood pressure 137/74. 06/06/2024 Patient evaluated in follow up. Status post right AKA and prior left BKA. Incisions are well approximated. Patient with no acute complaints overnight. He does have a stage III pressure injury and has been complaining of some increased discomfort requiring frequent repositioning today. Blood pressure has been on the lower side down into the 80/60s. He is on entresto and metoprolol. Currently no further episodes of VTach and patient has agreed to wear the lifevest today. His blood pressure has been fluctuating and we will monitor closely, currently asymptomatic. Review of systems: Constitutional: No reports of fatigue, fever, or chills Cardiovascular: No reports of chest pain or palpitations Respiratory: No reports of shortness of breath or cough GI: No reports of nausea, no reports of vomiting, : No reports of dysuria or retention Neurovascular: reports of generalized weakness All medications have been reviewed PHYSICAL EXAMINATION: GENERAL: The patient is alert and oriented x4, Well developed, well nourished. Elderly appearing HEENT: Pupils are round and equally reacting to light. EOMI. no scleral icterus. No conjunctival pallor. Normocephalic, atraumatic. No pharyngeal erythema. No thyromegaly. CARDIOVASCULAR: S1 and S2 muffled PULMONARY: diminished breath sounds bilaterally with no wheezing or rhonchi noted. ABDOMEN: soft. Nontender on exam. Thin. non-distended, normoactive bowel s ounds. No palpable organomegaly. MUSCULOSKELETAL: No joint swelling or deformity. EXTREMITIES: No cyanosis, clubbing, or pedal edema. Bilateral lower extremities with AKA's noted. Surgical dressing on the right AKA is dry and intact recent left AKA with jeffrey that have been removed every other and appear well- approximated with no drainage, redness, or swelling noted NEUROLOGICAL: Gross neurological examination did not reveal any focal deficits. Diffuse weakness SKIN: No rashes. Assessment: Severe right foot cellulitis with failure of outpatient treatment with recent partial amputation of the right great toe on last admission, status post right AKA this admission Severe peripheral vascular disease Status post recent left yaksv-zow-pudb amputation on last admission Nonsustained ventricular tachycardia History of chronic anemia Chronic obstructive pulmonary disease, not in exacerbation Congestive heart failure with acute on chronic systolic dysfunction, EF is 25 to 30% Ischemic cardiomyopathy with an EF of 25 to 30% Coronary artery disease with prior CABG in 2015 History of stroke History of carotid artery stenosis with prior carotid endarterectomy Hypertension Hyperlipidemia Diabetes mellitus type II GI prophylaxis DVT prophylaxis Full code Plan: Recommend to continue with current medications and management with multiple consultations following. Patient is status post right AKA and recent left AKA on last admission. Plan is to return to [facility] and will require insurance authorization. Per case management [id number] was requested by insurance as authorization was denied and physician on-call requesting updated PT/OT therapy notes. Awaiting physical therapy reevaluation today. Case management following and awaiting updated PT/OT therapy notes. Infectious disease following and patient is maintained on antibiotics and will continue for now. Will not require antibiotics on discharge Continue with local wound care per vascular surgery. Multiple jeffrey including every other staple on the left recent AKA have been removed and incision is well-approximated Continue monitoring Accu-Cheks before meals and at bedtime and will adjust insulins accordingly Cardiology recommending a LifeVest to continue on discharge Due to multiple complex medical issues, overall prognosis is guarded Discharge will not be until Friday at the earliest secondary to patient require insurance authorization and [facility] facility. There is no social work available in house for assistance today on Friday, social work to follow up on Friday. The impression and plan of care has been dictated by Caprice Stern Nurse Practitioner as directed. Dr. Rebecca MD I have performed a history and physical examination and medical decision making of this patient, discussed the same with the dictator, and agree with the dictators assessment and plan as written, documented as a scribe. Based on total visit time, I have performed more than 50% of this visit. Objective - Vital Signs Vital signs: Vital Signs Temp 98 F 06/06/24 04:00 Pulse 73 06/06/24 04:00 Resp 16 06/06/24 04:00 BP 92/56 06/06/24 04:00 Pulse Ox 99 06/06/24 04:00 FiO2 Intake & Output 06/05/24 06/06/24 06/06/24 18:59 06:59 18:59 Intake Total 1198 560 Output Total 200 1275 Balance 998 -715 Weight 50 kg Intake: IV 20 Invasive Line 7 20 Oral 1198 540 Output: Urine 200 1275 Other: Voiding Method Urinal Urinal Diaper Diaper Incontinent Incontinent # Voids 1 # Bowel Movements 1 - Labs CBC & Chem 7: 06/03/24 06:39 06/05/24 06:39 Labs: Abnormal Lab Results - Last 24 Hours (Table) 06/05/24 06/05/24 06/05/24 Range/Units 11:46 16:33 20:36 POC Glucose (mg/dL) 151 H 171 H 215 H (70-110) mg/dL 06/06/24 Range/Units 06:10 POC Glucose (mg/dL) 247 H (70-110) mg/dL Assessment and Plan Time with Patient: Less than 30
[2024-06-06 20:04] LABS: Glucose,Whole Blood 132 mg/dL (70-110)
[2024-06-07 06:23] LABS: Glucose,Whole Blood 215 mg/dL (70-110)
[2024-06-07 11:19] LABS: Glucose,Whole Blood 197 mg/dL (70-110)
[2024-06-07 16:24] LABS: Glucose,Whole Blood 159 mg/dL (70-110)
[2024-06-07 19:54] LABS: Glucose,Whole Blood 146 mg/dL (70-110)
--- NOTE | 2024-06-07 23:03 | P.PN ---
Subjective Progress Note Date: 06/07/24 Principal diagnosis: Right diabetic foot ulcer and cellulitis Patient is a 68-year-old -Turkish male with a past medical history significant for Coronary Artery Disease (CAD), Chest Pain / Angina, COPD, CVA/TIA, Diabetes Mellitus, Hyperlipidemia, Hypertension, Memory Impairment, Myocardial Infarction ([place]), Prostate Disorder, Sleep Apnea/CPAP/BIPAP, Vascular Disorder in this patient who recently did have left peysu-rir-rkkx amputation and also debridement of the right big toe wound now being readmitted to the hospital with worsening right foot wound and cellulitis.Patient is status post right rbphp-kth-zhdk potation completed on 06/01/2024. On today's evaluation that is 06/07/2024,the patient denies any fever or any chills, patient is breathing comfortably on room air, the patient denies chest pain shortness of breath and no significant cough, patient denies abdominal pain, no nausea vomiting or diarrhea. Still complaining of pain to the right gluteal area but no worsening. Patient tested negative for SARS-CoV-2 PCR blood pressure has been negative Objective - Vital Signs Vital signs: Vital Signs Temp 98.1 F 06/07/24 08:00 Pulse 101 H 06/07/24 14:15 Resp 16 06/07/24 14:15 BP 116/67 06/07/24 14:15 Pulse Ox 100 06/07/24 14:15 FiO2 Intake & Output 06/06/24 06/07/24 06/07/24 18:59 06:59 18:59 Intake Total 800 413 Output Total 200 450 200 Balance -200 350 213 Weight 51.5 kg Intake: IV 20 20 Invasive Line 7 20 20 Oral 780 393 Output: Urine 200 450 200 Other: Voiding Method Urinal Urinal Urinal Diaper Diaper Diaper Incontinent Incontinent Incontinent # Voids 200 3 # Bowel Movements 1 - Exam GENERAL DESCRIPTION: An elderly male lying in bed in no distress RESPIRATORY SYSTEM: Unlabored breathing , decreased breath sounds at bases HEART: S1 S2 regular rate and rhythm , ABDOMEN: Soft , no tenderness, right gluteal area did have a pressure ulcer stage III with slough tissue no surrounding redness EXTREMITIES: Right AKA stump is currently dressed - Labs CBC & Chem 7: 06/03/24 06:39 06/05/24 06:39 Labs: Abnormal Lab Results - Last 24 Hours (Table) 06/06/24 06/06/24 06/07/24 Range/Units 16:52 20:03 06:22 POC Glucose (mg/dL) 182 H 132 H 215 H (70-110) mg/dL 06/07/24 Range/Units 11:17 POC Glucose (mg/dL) 197 H (70-110) mg/dL Assessment and Plan (1) Diabetic foot ulcer Current Visit: Yes Status: Acute Code(s): E11.621 - TYPE 2 DIABETES MELLITUS WITH FOOT ULCER; L97.509 - NON-PRESSURE CHRONIC ULCER OTH PRT UNSP FOOT W UNSP S [place] SNOMED Code(s): 467040150 (2) Cellulitis of right foot Current Visit: Yes Status: Acute Code(s): L03.115 - CELLULITIS OF RIGHT LOWER LIMB SNOMED Code(s): 67438657747896177 (3) Pressure ulcer of right buttock, stage 3 Current Visit: Yes Status: Acute Code(s): L89.313 - PRESSURE ULCER OF RIGHT BUTTOCK, STAGE 3 SNOMED Code(s): 78396122067067 Plan: 1patient presented to hospital with worsening wound to the right foot in this patient who did have a history of diabetes mellitus also with a history of PAD and recent left bvoau-btd-kxfk amputation now concerning for worsening wound and cellulitis we will need to cover for both gram-positive as well as gram-negative pathogen 2-patient is status post right yofcx-uhi-ltpi amputation patient did have normalization of his white count, antibiotics has been discontinued 3patient with stage III ulcer to the gluteal area with no evidence of any secondary cellulitis the patient has been advise Medihoney followed by moist dressing and keep the area of the pressure and no need for antibiotics on discharge Dictation was produced using [employer] dictation software. please excuse any grammatical, word or spelling errors. Time with Patient: Less than 30
[2024-06-08 00:46] VITALS: TEMP 98.3
--- NOTE | 2024-06-08 05:17 | P.PN ---
Subjective Progress Note Date: 06/07/24 This is a pleasant 68-year-old male who was recently admitted from [facility] status post recent left AKA and partial amputation on the right great toe although having worsening swelling and nonhealing and evaluated by vascular surgery recommending amputation. Initially patient wanted a second opinion and another vascular surgeon evaluated the case along with the patient recommending amputation with concerns of wet gangrene. Patient willing to proceed and underwent right AKA early this morning with Dr. Velez vascular surgery. Multiple other consultations including cardiology and infectious disease following maintained on antibiotics. Patient will be returning to [facility] on discharge. 06/02/2024 Patient is seen in follow-up this morning with no acute overnight issues noted. Patient reports he has minimal pain and is status post right AKA. Patient needed updated notes for PT/OT therapy as patient will be returning to [facility] and case management is following. Patient is afebrile and white count has normalized and maintained on IV antibiotics with infectious disease following. Patient will not require antibiotics on discharge. Vascular has cleared the patient for discharge to [facility]. Patient will require insurance authorization which is pending. 06/03/2024 Patient is seen in follow-up this morning awaiting to work with physical therapy as patient was having increased pain yesterday and unable to fully work with. Insurance has denied authorization to return to [facility] requesting a peer to peer. Case management following and family is also working on [place] paperwork regarding his benefits. Patient is afebrile with no reports of chest pain or shortness of breath. Patient reports his pain is controlled today and willing to work with physical therapy. Patient reports to tolerating diet and blood sugars have been well-controlled. Will continue current regimen and adjust acco rdingly. 06/04/2024 Patient is evaluated today in follow up on the medical floor. Postoperative bi lateral lower extremity [id number] amputations. Reports pain about a 6 out of 10 states that the pain medication is bringing the pain down he receives it. He is receiving IV morphine and oral [place]. He is currently pending authorization for discharge to a [place] rehab facility. 06/05/2024 Patient is evaluated in the medical floor with no acute complaints. He continues on gabapentin 6 mg 3 times a day as well as [place] 5 mg every 6 hours for pain control. Patient has a LifeVest at the bedside, he continues on Entresto. He is currently pending insurance authorization from the [place] for discharge to subacute rehab facility. His blood work today reveals a sodium level of 137, potassium 4.9, BUN of 16, creatinine of 0.71 blood glucose is in the 150s. Patient is afebrile 100% on room air heart rate of 61 normal sinus rhythm and a blood pressure 137/74. 06/06/2024 Patient evaluated in follow up. Status post right AKA and prior left BKA. Incisions are well approximated. Patient with no acute complaints overnight. He does have a stage III pressure injury and has been complaining of some increased discomfort requiring frequent repositioning today. Blood pressure has been on the lower side down into the 80/60s. He is on entresto and metoprolol. Currently no further episodes of VTach and patient has agreed to wear the lifevest today. His blood pressure has been fluctuating and we will monitor closely, currently asymptomatic. 06/07/2024 Patient is seen in follow-up today and [facility] has denied the patient as insurance authorization was denied. Case management following making a rrangements to the [place] as benefits have been verified and patient has a bed at [facility] and will be going there for continued strength and mobility along with wound care. Patient with infectious disease following maintained on antibiotics which has been discontinued and being monitored closely and white count has normalized and patient remains afebrile. Patient does have a LifeVest and adjustments to medications per cardiology have been done and patient will need close outpatient follow-up. COVID testing was negative and patient has been cleared by consultations for discharge to [facility]. Possible discharge in 24 hours. Review of systems: Constitutional: No reports of fatigue, fever, or chills Cardiovascular: No reports of chest pain or palpitations Respiratory: No reports of shortness of breath or cough GI: No reports of nausea, no reports of vomiting, : No reports of dysuria or retention Neurovascular: reports of generalized weakness All medications have been reviewed PHYSICAL EXAMINATION: GENERAL: The patient is alert and oriented x4, Well developed, well nourished. Elderly appearing HEENT: Pupils are round and equally reacting to light. EOMI. no scleral icterus. No conjunctival pallor. Normocephalic, atraumatic. No pharyngeal erythema. No thyromegaly. CARDIOVASCULAR: S1 and S2 muffled PULMONARY: diminished breath sounds bilaterally with no wheezing or rhonchi noted. ABDOMEN: soft. Nontender on exam. Thin. non-distended, normoactive bowel sounds. No palpable organomegaly. MUSCULOSKELETAL: No joint swelling or deformity. EXTREMITIES: No cyanosis, clubbing, or pedal edema. Bilateral lower extremities with AKA's noted. Surgical dressing on the right AKA is dry and intact recent left AKA with jeffrey that have been removed every other and appear well- approximated with no drainage, redness, or swelling noted NEUROLOGICAL: Gross neurological examination did not reveal any focal deficits. Diffuse weakness SKIN: No rashes. Assessment: Severe right foot cellulitis with failure of outpatient treatment with recent partial amputation of the right great toe on last admission, status post right AKA this admission Severe peripheral vascular disease Status post recent left [id number] amputation on last admission Nonsustained ventricular tachycardia History of chronic anemia Chronic obstructive pulmonary disease, not in exacerbation Congestive heart failure with acute on chronic systolic dysfunction, EF is 25 to 30% Ischemic cardiomyopathy with an EF of 25 to 30% Coronary artery disease with prior CABG in 2014 History of stroke History of carotid artery stenosis with prior carotid endarterectomy Hypertension Hyperlipidemia Diabetes mellitus type II GI prophylaxis DVT prophylaxis Full code Plan: Recommend to continue with current medications and management with multiple consultations following. Patient is status post right AKA and recent left AKA on last admission. Plan was to return to [facility] and insurance authorization was denied. Per case management family working on getting [place] benefits verified and patient has been accepted [facility] and will have a bed available on 06/08/2024. COVID testing was negative and patient will be discharged on 06/08/2024. Infectious disease following and patient has been closely monitored off antibiotic therapy and will not require antibiotics on discharge Continue with local wound care to the sacral region by offloading every 2 hours and frequent position changes along with Medihoney and border foam Continue with local wound care per vascular surgery. Multiple jeffrey including every other staple on the left recent AKA have been removed and incision is well-approximated Continue monitoring Accu-Cheks before meals and at bedtime and will adjust insulins accordingly Cardiology recommending a LifeVest to continue on discharge Due to multiple complex medical issues, overall prognosis is guarded Discharge in 24 hours to [facility] The impression and plan of care has been dictated by Quynh Berg, nurse practitioner as directed. Dr. Rebecca MD I have performed a history and examination and MDM of this patient, discussed the same with the dictator, and agree with the dictator's assessment and plan as written ,documented as a scribe. Based on total visit time, I have performed more than 50% of the visit. Any additional findings or plans will be noted. Objective - Vital Signs Vital signs: Vital Signs Temp 98.4 F 06/07/24 04:00 Pulse 90 06/07/24 04:00 Resp 18 06/07/24 04:00 BP 101/63 06/07/24 04:00 Pulse Ox 96 06/07/24 04:00 FiO2 Intake & Output 06/06/24 06/07/24 06/07/24 18:59 06:59 18:59 Intake Total 800 275 Output Total 200 450 200 Balance -200 350 75 Weight 51.5 kg Intake: IV 20 Invasive Line 7 20 Oral 780 275 Output: Urine 200 450 200 Other: Voiding Method Urinal Urinal Diaper Diaper Incontinent Incontinent # Voids 200 3 # Bowel Movements 1 - Labs CBC & Chem 7: 06/03/24 06:39 06/05/24 06:39 Labs: Abnormal Lab Results - Last 24 Hours (Table) 06/06/24 06/06/24 06/06/24 Range/Units 11:31 16:52 20:03 POC Glucose (mg/dL) 167 H 182 H 132 H (70-110) mg/dL 06/07/24 Range/Units 06:22 POC Glucose (mg/dL) 215 H (70-110) mg/dL
[2024-06-08 06:26] LABS: Glucose,Whole Blood 123 mg/dL (70-110)
[2024-06-08 08:09] VITALS: BP 105/64; PULSE 98
[2024-06-08 09:29] VITALS: RESP 14
[2024-06-08 09:51] VITALS: BMI 17.7
--- NOTE | 2024-06-08 10:42 | P.DS ---
Providers Date of admission: 05/25/24 20:04 Expected date of discharge: 06/08/24 Attending physician: Kael Altamirano Consults: 05/25/24 20:02 Consult Physician Urgent Consulting Provider: Beatriz Rodriges Consult Reason/Comments: Cellulitis, sepsis Do you want consulting provider notified?: Yes 05/27/24 09:45 Consult Physician Urgent Consulting Provider: Tristin Burgess Consult Reason/Comments: abnormal telemetry, 20 beat run Do you want consulting provider notified?: Yes 05/27/24 10:32 Consult Physician Urgent Consulting Provider: Juan Felipe Consult Reason/Comments: right foot cellulitis, ?amputation, 2nd opinion Do you want consulting provider notified?: Yes Primary care physician: Kar Manzano Hospital Course: Final diagnosis Severe right foot cellulitis with failure of outpatient treatment with recent partial amputation of the right great toe on last admission, status post right AKA this admission Severe peripheral vascular disease Status post recent left [id number] amputation on last admission Nonsustained ventricular tachycardia History of chronic anemia Right gluteal pressure ulcer, stage III, present on admission Chronic obstructive pulmonary disease, not in exacerbation Congestive heart failure with acute on chronic systolic dysfunction, EF is 25 to 30% Ischemic cardiomyopathy with an EF of 25 to 30% Coronary artery disease with prior CABG in 2014 History of stroke History of carotid artery stenosis with prior carotid endarterectomy Hypertension Hyperlipidemia Diabetes mellitus type II GI prophylaxis DVT prophylaxis Full code Discharge disposition Patient is being discharged in a stable condition with guarded prognosis to [facility]. Patient will follow-up with Dr. Manzano in the outpatient setting upon discharge. Patient is to continue with wound care and outpatient follow-up with cardiology Dr. Felder as well as vascular surgery Dr. Velez as scheduled. Total time taken is greater than 35 minutes. Hospital course This is a 68-year-old male who was recently admitted with severe right foot cellulitis with failure of outpatient treatment with a recent partial amputation of the right great toe on previous admission. Patient also underwent recent left AKA and was evaluated by vascular surgery here including a second opinion with concerns of wet gangrene and both were agreeable that patient will require AKA. Patient was agreeable and underwent surgery. Patient is status post right AKA and jeffrey are well-approximated and cleared by vascular surgery. On the left recent AKA on previous admission every other staple has been removed and well-approximated and healing well. Patient to continue with stump certified substance abuse counselor and close outpatient follow-up with vascular surgery in 1 to 2 weeks. Patient also requiring LifeVest with cardiology following and evaluating as EF is 25-30 % and will continue with LifeVest for minimum 3 months. Patient will follow with Dr. Felder in the outpatient setting in 1 to 2 weeks. Patient was on IV antibiotics and white count has normalized and being monitored off antibiotic therapy per ID and will continue with local wound care. Patient also with right gluteal pressure ulcer stage III, present on admission and has been instructed to continue with Medihoney with a moist dressing and offloading and using gentle foam barrier for the coccyx region. Patient has been cleared by consultations. Please refer to other consultation notes for further HPI. Patient initially was returning to [facility] although insurance authorization was denied including a peer to peer which was denied. Patient has [place] benefits and will be going to [facility]. Currently no reports of chest pain, shortness of breath, or palpitations. Patient is afebrile. No reports of nausea or vomiting and vanita sherlyn is tolerating diet. Patient will be going to [facility] today. Physical exam: Gen: This is a 68-year-old male who is awake, alert and oriented x 3, well- developed, thin built, elderly appearing HEENT: Head is atraumatic, normocephalic. Pupils equal, round. Sclerae is anicteric. NECK: Supple. No JVD. No lymphadenopathy. No thyromegaly. LUNGS: Diminished breath sounds bilaterally otherwise clear to auscultation. No wheezes or rhonchi. No intercostal retractions. HEART: S1, S2 are muffled ABDOMEN: Soft. Thin bowel sounds are present. No masses. No tenderness. EXTREMITIES: No pedal edema. No calf tenderness. Bilateral AKA noted, right has jeffrey every other that have been removed and well-approximated, left surgical dressing is dry and intact NEUROLOGICAL: Patient is awake, alert and oriented x3. Cranial nerves 2 through 12 are grossly intact. Please refer to medication reconciliation sheet for a list of medications. The impression and plan of care has been dictated by Quynh Berg, Nurse Practitioner as directed. Dr. Maikel MD I have performed a history and examination and MDM of this patient, discussed the same with the dictator, and agree with the dictator's assessment and plan as written ,documented as a scribe. Based on total visit time, I have performed more than 50% of the visit. Patient Condition at Discharge: Stable Plan - Discharge Summary New Discharge Prescriptions: New Spironolactone [Aldactone] 25 mg PO DAILY tab Sacubitril/Valsartan [Entresto 24 mg-26 mg Tablet] 1 each PO BID tab HYDROcodone/APAP 5-325MG [[place] 5-325] 1 each PO Q6HR PRN #6 tab PRN Reason: Pain Acetaminophen Tab [Tylenol] 650 mg PO Q6HR PRN tab PRN Reason: Mild Pain Or Fever > 100.5 Rivaroxaban [Xarelto] 2.5 mg PO BID tab Dapagliflozin Propanediol [Farxiga] 10 mg PO DAILY tab Clopidogrel [Plavix] 75 mg PO DAILY tab Metoprolol Succinate (ER) [Toprol XL] 75 mg PO BID tab Continue Tamsulosin [Flomax] 0.4 mg PO DAILY@0900 Cholecalciferol [Vitamin D3 (25 Mcg = 1000 Iu)] 25 mcg PO DAILY@0900 Fluconazole [Diflucan] 100 mg PO DAILY@0900 Lactose-Reduced Food [Ensure Plus] 237 ml PO BID@0900,2000 Melatonin 5 mg PO HS@2100 Omeprazole 20 mg PO DAILY@0600 INSULIN ASPART (NovoLOG) [NovoLOG (formulary)] See Protocol SQ ACHS@07,12,17,21 Cyanocobalamin (Vitamin B-12) [Vitamin B-12] 1,000 mcg PO DAILY@0900 Atorvastatin [Lipitor] 80 mg PO HS@2100 Docusate [Colace] 100 mg PO BID@0900,2100 Gabapentin 600 mg PO TID@0900,1300,2100 Discontinued Metoprolol Succinate (ER) [Toprol XL] 50 mg PO HS@2100 Amoxic-Pot Clav 875-125Mg [Augmentin 875-125] 1 tab PO Q12HR Heparin Sodium,Porcine (1 ml) [Heparin Sodium] 5,000 unit SQ BID@0900,2100 Isosorbide Mononitrate ER [Imdur] 60 mg PO DAILY@0900 Ticagrelor [Brilinta] 90 mg PO BID@0900,2100 Aspirin EC [Ecotrin Low Dose] 81 mg PO DAILY@0900 HYDROcodone/APAP 5-325MG [[place] 5-325] 1 tab PO Q6HR PRN PRN Reason: Pain Discharge Medication List Tamsulosin [Flomax] 0.4 mg PO DAILY@0900 07/03/21 [History] Cholecalciferol [Vitamin D3 (25 Mcg = 1000 Iu)] 25 mcg PO DAILY@0900 10/22/21 [History] Cyanocobalamin (Vitamin B-12) [Vitamin B-12] 1,000 mcg PO DAILY@89903/11/24 [History] Atorvastatin [Lipitor] 80 mg PO HS@209905/25/24 [History] Docusate [Colace] 100 mg PO BID@00,209905/25/24 [History] Fluconazole [Diflucan] 100 mg PO DAILY@89905/25/24 [History] Gabapentin 600 mg PO TID@0900,1300,209905/25/24 [History] INSULIN ASPART (NovoLOG) [NovoLOG (formulary)] See Protocol SQ ACHS@,,,05/25/24 [History] Lactose-Reduced Food [Ensure Plus] 237 ml PO BID@0900,199905/25/24 [History] Melatonin 5 mg PO HS@209905/25/24 [History] Omeprazole 20 mg PO DAILY@59905/25/24 [History] Acetaminophen Tab [Tylenol] 650 mg PO Q6HR PRN tab 06/08/24 [Rx] Clopidogrel [Plavix] 75 mg PO DAILY tab 06/08/24 [Rx] Dapagliflozin Propanediol [Farxiga] 10 mg PO DAILY tab 06/08/24 [Rx] HYDROcodone/APAP 5-325MG [[place] 5-325] 1 each PO Q6HR PRN #6 tab 06/08/24 [Rx] Metoprolol Succinate (ER) [Toprol XL] 75 mg PO BID tab 06/08/24 [Rx] Rivaroxaban [Xarelto] 2.5 mg PO BID tab 06/08/24 [Rx] Sacubitril/Valsartan [Entresto 24 mg-26 mg Tablet] 1 each PO BID tab 06/08/24 [Rx] Spironolactone [Aldactone] 25 mg PO DAILY tab 06/08/24 [Rx] Follow up Appointment(s)/Referral(s): Travon Felder MD [STAFF PHYSICIAN] - 1 Week Kar Manzano MD [Primary Care Provider] - 1-2 days Maggi Velez DO [STAFF PHYSICIAN] - 2 Weeks Activity/Diet/Wound Care/Special Instructions: [facility] is [facility] second [place] Activity as tolerated Daily surgical site evaluation, keep stump certified substance abuse counselor in place. Apply rigid dressing when transferring or doing physical therapy Follow-up primary care provider on discharge Follow-up vascular surgery on discharge Follow-up cardiology Continue with LifeVest for 3 months Continue monitoring Accu-Cheks before meals and at bedtime and use sliding scale Continue with local wound care to the sacral region with Medihoney and gentle foam border with frequent offloading every 2 hours Discharge Disposition: TRANSFER TO SNF/ECF
[2024-06-08 10:58] LABS: Glucose,Whole Blood 135 mg/dL (70-110)
== END 2024-06-08 12:00 | DRG 239 ==
LOC: EC 15:53 → 4SSUR 20:04 → 3SCARD 20:59
PROVIDERS: ADMIT Hospitalist; ATTEND Hospitalist
PROC: 0Y6C0Z1 Detachment at Right Upper Leg, High, Open Approach (ICD-10-PCS; principal; 2024-06-01 07:30)
DX: E11.52 Type 2 diabetes mellitus with diabetic peripheral angiopathy with gangrene (principal); I50.23 Acute on chronic systolic (congestive) heart failure; L89.313 Pressure ulcer of right buttock, stage 3; L03.115 Cellulitis of right lower limb; E87.20 Acidosis, unspecified; I47.29 Other ventricular tachycardia; I70.261 Atherosclerosis of native arteries of extremities with gangrene, right leg; L97.419 Non-pressure chronic ulcer of right heel and midfoot with unspecified severity; E11.628 Type 2 diabetes mellitus with other skin complications; E11.621 Type 2 diabetes mellitus with foot ulcer; E78.5 Hyperlipidemia, unspecified; J44.9 Chronic obstructive pulmonary disease, unspecified; D64.9 Anemia, unspecified; I25.5 Ischemic cardiomyopathy; L97.514 Non-pressure chronic ulcer of other part of right foot with necrosis of bone; I25.2 Old myocardial infarction; I25.10 Atherosclerotic heart disease of native coronary artery without angina pectoris; I70.1 Atherosclerosis of renal artery; Z79.899 Other long term (current) drug therapy; Z79.82 Long term (current) use of aspirin; Z79.4 Long term (current) use of insulin; Z79.02 Long term (current) use of antithrombotics/antiplatelets; Z86.73 Personal history of transient ischemic attack (TIA), and cerebral infarction without residual deficits; Z89.512 Acquired absence of left leg below knee; Z87.891 Personal history of nicotine dependence; Z95.1 Presence of aortocoronary bypass graft; Z89.411 Acquired absence of right great toe; Z98.61 Coronary angioplasty status
CPT/HCPCS: 36410; 36415; 71045; 76937; 80048; 80053; 80202; 82565; 83605; 83735; 84484; 85025; 85027; 85610; 85730; 86850; 86900; 86901; 86920; 87040; 87635; 93005; 96361; 96365; 96366; 96368; 99291

== ENCOUNTER 2024-09-09 08:37 | Day surgery (SDC) | payer OTHER ==
[2024-09-09 11:03] LABS: Glucose,Whole Blood 93 mg/dL (70-110)
[2024-09-09 11:28] LABS: African American GFR (CKD) >90 (>60 ml/min/1.73 sqM); Anion Gap 7 mmol/L; Blood Urea Nitrogen 15 mg/dL (9-20); Calcium 9.3 mg/dL (8.4-10.2); Carbon Dioxide 28 mmol/L (22-30); Chloride 103 mmol/L (98-107); Glucose 102 mg/dL (74-99); Non-African American GFR(CKD) 82 (>60 ml/min/1.73 sqM); Sodium 138 mmol/L (137-145)
[2024-09-09 11:53] LABS: Potassium 4.6 mmol/L (3.5-5.1)
[2024-09-09 12:08] LABS: Anisocytosis Slight; Basophils # (A) 0.1 k/uL (0-0.2); Basophils % (A) 1 %; Eosinophils # (A) 0.2 k/uL (0-0.7); Eosinophils % (A) 3 %; HCT 43.4 % (39.0-53.0); Lymphocytes # (A) 2.8 k/uL (1.0-4.8); Lymphocytes % (A) 38 %; MCH 24.8 pg (25.0-35.0); MCHC 32.2 g/dL (31.0-37.0); MCV 76.8 fL (80.0-100.0); Mean Platelet Volume 7.7; Microcytosis Moderate; Monocytes # (A) 0.4 k/uL (0-1.0); Monocytes % (A) 5 %; Neutrophils # (A) 3.7 k/uL (1.3-7.7); Neutrophils % (A) 51 %; Platelet Count 267 k/uL (150-450); RBC 5.65 m/uL (4.30-5.90); RDW 18.5 % (11.5-15.5); WBC 7.2 k/uL (3.8-10.6)
[2024-09-09] MEDS ORDERED: PHENYLEPHRINE 10 MG/ML VIAL ONE (13:21)
[2024-09-09] MEDS ORDERED: fentaNYL (PF) 50 MCG/ML 2 ML AMP ONE (13:21)
[2024-09-09] MEDS ORDERED: KETAMINE HCL IN 0.9 % NACL 50 MG/5 ML SYRINGE ONE (13:21)
[2024-09-09] MEDS ORDERED: PROPOFOL 10 MG/ML 20 ML VIAL IV ONE (13:21)
[2024-09-09] MEDS ORDERED: ePHEDrine 50 MG/ML 1 ML VIAL ONE (13:21)
[2024-09-09] MEDS ORDERED: MIDAZOLAM 2 MG/2 ML VIAL ONE (13:21)
[2024-09-09] MEDS: IOPAMIDOL-250 100ML BTL IVP ONE (13:44)
[2024-09-09] MEDS: HEPARIN SODIUM,PORCINE (1 ML) 2,500 UNIT in SODIUM CHLORIDE 0.9% 250 ML IRRIGATION ONE (13:59)
[2024-09-09] MEDS: VANCOMYCIN 1,000 MG in SODIUM CHLORIDE 0.9% 250 ML IVPB STA (13:59)
[2024-09-09] MEDS: ceFAZolin 1 GM in SODIUM CHLORIDE 0.9% IRRIG BTL 250 ML IRRIGATION PRN (14:00)
[2024-09-09] MEDS: SODIUM CHLORIDE 0.9% 900 ML IV ONE (14:00)
[2024-09-09] MEDS: ROPIVACAINE 5 MG/ML 30 ML VIAL MISCELLANE ONE (14:20)
[2024-09-09] MEDS: LIDOCAINE 1% INJ 10MG/ML (20 ML MDV) SQ ONE (14:20)
[2024-09-09] MEDS ORDERED: HYDROcodone/APAP 5-325MG 1 EACH TAB PO PRN (15:11)
[2024-09-09] MEDS ORDERED: ACETAMINOPHEN TAB 325 MG TAB PO PRN (15:11)
--- NOTE | 2024-09-09 15:19 | P.EPPROC ---
- EP Procedure Note Electrophysiology Procedure Note: Diagnosis Ischemic cardiomyopathy, chronic Congestive heart failure, systolic, [place] Heart Association class II-III On guideline directed medical treatment Left ventricular ejection fraction 25-30% Multivessel coronary artery disease, old MD Narrow QRS Frequent PVCs and ventricular couplets Procedure: Single ICD implantation for management of risk of sudden cardiac Baccarat Dealer: Dr. Mackay Result: Single chamber ICD implantation, RV ICD lead: Armando single coil screw-in lead R waves 12 mV, pacing impedance less than 0.25 V at 0.5 ms and pacing impedance of 630 ohms High-voltage impedance 58 ohms ICD generator: Armando single-chamber ICD, [place] VR single-chamber ICD Procedure details: Patient was brought to the EP lab in a fasting state. Written informed consent was obtained prior to the procedure. Options, pros and cons, benefits and risks and complications discussed with patient in detail prior to the procedure (shared decision making document, from [facility]). Importance of continuing medical treatment emphasized. Alternatives discussed. Patient would like to proceed with ICD implant. Left upper extremity venogram performed. 15 mL IV dye injected in the left arm. Patent axillary/subclavian vein The left pectoral area was prepped and draped as a protocol. IV antibiotics administered 1% lidocaine was used for local anesthesia. A 4 cm incision was made parallel to the deltopectoral groove, about 1.5 cm medial to it. The incision was carried down to the level of the pectoralis muscle and the subfascial pocket was made. Hemostasis was assured. The axillary vein access was obtained. Appropriately sized venous sheath was placed. ICD lead implanted in the right ventricle and screwed in. ICD lead tested for threshold, sensing, impedances and tested with high output pacing for diaphragmatic stimulation Lead secured to the underlying transverse muscle after removing sheaths . Pocket irrigated with antibiotic solution Leads connected to the ICD generator. Wound closed in 3 layers and dressed per protocol. Antibiotic pouch placed within ICD pocket ICD was interrogated and programmed. Appropriate pacing parameters, antitachycardia therapies with antitachycardia pacing cardioversion defibrillations programmed. Patient tolerated the procedure well without any acute complications. See scanned device report in EMR for lead details DFT testing VF was induced and successfully detected without any dropouts. Successfully defibrillated with a 10 J shock, anodal polarity High-voltage impedance 58 ohms, charge time 1.6 seconds Successful energy 10 J Result Successful single-chamber ICD implantation DFT at or below 10 J
[2024-09-09 15:59] LABS: Glucose,Whole Blood 94 mg/dL (70-110)
--- NOTE | 2024-09-09 16:18 | XR ---
EXAMINATION TYPE: XR chest 1V portable DATE OF EXAM: 09/09/2024 3:57 PM COMPARISON: Chest radiographs from 05/26/2024 CLINICAL INDICATION: Male, 68 years old with history of Lead placement check; [facility] TECHNIQUE: XR chest 1V portable Frontal view of the chest. FINDINGS: Lungs/Pleura: There is no evidence of pleural effusion, focal consolidation, or pneumothorax. Pulmonary vascularity: Unremarkable. Heart/mediastinum: Cardiomediastinal silhouette is unremarkable. Atherosclerotic calcifications are seen in the aorta. Single-lead cardiac conduction device overlying the left hemithorax with lead proj ecting over the right ventricle. Musculoskeletal: No acute osseous pathology. Midline sternotomy wires are noted. Other findings: None IMPRESSION: 1. No acute cardiopulmonary disease/process. 2. Single-lead cardiac conduction device overlying the left hemithorax with lead projecting over the right ventricle. [facility], , 09/09/2024 4:15 PM
[2024-09-09] MEDS: fentaNYL (PF) 50 MCG/ML 2 ML AMP IVP PRN (16:23)
[2024-09-09] MEDS: ACETAMINOPHEN IV (For NPO) 1,000 MG in EMPTY BAG 1 BAG IVPB ONE (17:35)
[2024-09-09] MEDS: LACTATED RINGERS 1,000 ML IV SCH (17:51)
[2024-09-09] MEDS: SODIUM CHLORIDE 0.9% 1,000 ML IV SCH ×2 (17:51→17:52)
[2024-09-09 20:29] LABS: Glucose,Whole Blood 160 mg/dL (70-110)
[2024-09-09] MEDS: GABAPENTIN 300 MG CAP PO SCH (20:51)
[2024-09-09] MEDS: ATORVASTATIN 80 MG TAB PO SCH (20:51)
[2024-09-09] MEDS: SACUBITRIL/VALSARTAN 24 MG-26 MG TABLET PO SCH (20:51)
[2024-09-09] MEDS: RIVAROXABAN 2.5 MG TABLET PO SCH (20:52)
[2024-09-09] MEDS: METOPROLOL SUCCINATE (ER) 25 MG TAB.ER.24H PO SCH (20:59)
[2024-09-10] MEDS: PANTOPRAZOLE 40 MG TABLET PO SCH (05:05)
[2024-09-10 06:03] LABS: Glucose,Whole Blood 92 mg/dL (70-110)
[2024-09-10 07:38] VITALS: BP 106/62; PULSE 52; RESP 15; TEMP 97.8
--- NOTE | 2024-09-10 08:23 | P.EPPROC ---
- EP Procedure Note Electrophysiology Procedure Note: He is doing well. He is resting in bed. Despite the nurses instructions he has been lifting and moving his left arm and scratching his back. I had a detailed discussion with him and explained to him what to avoid in the first week in the first month. This is also been written in the discharge summary He he expressed an understanding of what to do and what not to do and hopefully he is compliant Pulse rate in the 50s and 60s afebrile blood pressure 112/69 mmHg Heart sounds S1-S2 are normal breath sounds are clear Impression Severe ischemic cardiomyopathy with class II-III congestive heart failure Known CAD old [place] Status post single-chamber ICD implantation, Armando Chest x-ray within normal limits Antibiotics complete Plan Discharge home after device interrogation. Discussed with the nurse. Discussed with the patient Follow-up with Dr. Felder next week in the device clinic
--- NOTE | 2024-09-10 08:26 | P.DS ---
Providers Attending physician: Santos Mackay Primary care physician: [facility] Course: He is doing well. He is resting in bed. Despite the nurses instructions he has been lifting and moving his left arm and scratching his back. I had a detailed discussion with him and explained to him what to avoid in the first week in the first month. This is also been written in the discharge summary He he expressed an understanding of what to do and what not to do and hopefully he is compliant Pulse rate in the 50s and 60s afebrile blood pressure 112/69 mmHg Heart sounds S1-S2 are normal breath sounds are clear Impression Severe ischemic cardiomyopathy with class II-III congestive heart failure Known CAD old ND Status post single-chamber ICD implantation, Armando Chest x-ray within normal limits Antibiotics complete Plan Discharge home after device interrogation. Discussed with the nurse. Discussed with the patient Follow-up with Dr. Felder next week in the device clinic Plan - Discharge Summary Discharge Rx Participant: No New Discharge Prescriptions: Continue Tamsulosin [Flomax] 0.4 mg PO DAILY@0900 Cholecalciferol [Vitamin D3 (25 Mcg = 1000 Iu)] 25 mcg PO DAILY@0900 Fluconazole [Diflucan] 100 mg PO DAILY@0900 Melatonin 5 mg PO HS@2100 Omeprazole 20 mg PO DAILY@0600 Spironolactone [Aldactone] 25 mg PO DAILY tab Sacubitril/Valsartan [Entresto 24 mg-26 mg Tablet] 1 each PO BID tab Rivaroxaban [Xarelto] 2.5 mg PO BID tab Atorvastatin [Lipitor] 80 mg PO HS@2100 Docusate [Colace] 100 mg PO BID@0900,2100 Gabapentin 600 mg PO TID@0900,1300,2100 Dapagliflozin Propanediol [Farxiga] 10 mg PO DAILY tab Clopidogrel [Plavix] 75 mg PO DAILY tab Metoprolol Succinate (ER) [Toprol XL] 75 mg PO BID tab Discharge Medication List Tamsulosin [Flomax] 0.4 mg PO DAILY@0900 07/03/21 [History] Cholecalciferol [Vitamin D3 (25 Mcg = 1000 Iu)] 25 mcg PO DAILY@0900 10/22/21 [History] Atorvastatin [Lipitor] 80 mg PO HS@2100 05/25/24 [History] Docusate [Colace] 100 mg PO BID@0900,209905/25/24 [History] Fluconazole [Diflucan] 100 mg PO DAILY@0905/25/24 [History] Gabapentin 600 mg PO TID@0900,1300,209905/25/24 [History] Melatonin 5 mg PO HS@209905/25/24 [History] Omeprazole 20 mg PO DAILY@0605/25/24 [History] Clopidogrel [Plavix] 75 mg PO DAILY tab 06/08/24 [Rx] Dapagliflozin Propanediol [Farxiga] 10 mg PO DAILY tab 06/08/24 [Rx] Metoprolol Succinate (ER) [Toprol XL] 75 mg PO BID tab 06/08/24 [Rx] Rivaroxaban [Xarelto] 2.5 mg PO BID tab 06/08/24 [Rx] Sacubitril/Valsartan [Entresto 24 mg-26 mg Tablet] 1 each PO BID tab 06/08/24 [Rx] Spironolactone [Aldactone] 25 mg PO DAILY tab 06/08/24 [Rx] Follow up Appointment(s)/Referral(s): Travon Felder MD [STAFF PHYSICIAN] - 1 Week Activity/Diet/Wound Care/Special Instructions: PATIENT EDUCATION MATERIAL Instructions following a heart rhythm device implant. 1. Keep dressing DRY for 5 DAYS. You may cover the area with Saran or Cling Wrap, prior to a shower. 2. The dressing will be removed in the Device Clinic at [facility]. Absorbable sutures were used to close the wound. 3. Avoid raising the left arm above the shoulder level. 4 week restriction 4. Avoid arm movements, like backscratching, rubbing the head, or pulling on a cord. 4 weeks restriction 5. Gentle range of motion movements of the shoulder, closest to the incision should be performed to avoid a frozen shoulder. (Pendulum exercises of the shoulder) 6. The opposite arm may be used freely. 7. Avoid driving for 7 days. 8. Avoid activities such as golfing, swimming, weed whacking, lifting more than 10 pounds weight, bowling, gymnastics and weight training/lifting. (6 weeks restriction) 9. Activities such as wood chopping with an axe, pull-ups in the gymnasium, power lifting, arc-welding, being close to home induction cooktops will always be a problem. 10. Arm sling is only a reminder not to raise the arm above the head. You do not need to keep the arm completely immobilized. Your free to move the arm and use it and for normal activities. In case of any problems, please call [facility], [place], @ [phone], Attention: Device Clinic Device clinic follow-up in 5 days Follow-up with primary professor of environmental studies in 2-3 months Discharge Disposition: HOME SELF-CARE
[2024-09-10] MEDS: SPIRONOLACTONE 25 MG TAB PO SCH (08:57)
[2024-09-10] MEDS: CLOPIDOGREL 75 MG TAB PO SCH (08:57)
[2024-09-10] MEDS: DAPAGLIFLOZIN PROPANEDIOL 10 MG TABLET PO SCH (08:57)
[2024-09-10] MEDS: TAMSULOSIN 0.4 MG CAP.ER.24H PO SCH (08:57)
[2024-09-10 12:19] LABS: Glucose,Whole Blood 141 mg/dL (70-110)
== END 2024-09-10 14:46 | disposition home or self-care (01) ==
LOC: CATHEP 08:37 → 6NMEDSUR 15:16 → CATHEP 09-10 14:46
PROVIDERS: ATTEND Internal Medicine Clinical Cardiac Electrophysiology
DX: I25.5 Ischemic cardiomyopathy (principal); I11.0 Hypertensive heart disease with heart failure; I50.22 Chronic systolic (congestive) heart failure; I25.10 Atherosclerotic heart disease of native coronary artery without angina pectoris; I25.2 Old myocardial infarction; E78.5 Hyperlipidemia, unspecified; I49.3 Ventricular premature depolarization; I70.0 Atherosclerosis of aorta; Z79.01 Long term (current) use of anticoagulants; Z79.02 Long term (current) use of antithrombotics/antiplatelets; Z79.899 Other long term (current) drug therapy
CPT/HCPCS: 93641; 33249; 80048; 85025; 71045; C1722; C1892; C1769 ×2; C1777; J2250; J3370; J1644; J0690 ×2; J2003; J3010; J2795; J0131; J2704; Q9966; J2371

== ENCOUNTER 2024-12-04 12:16 | Emergency (ER) | payer OTHER ==
--- NOTE | 2024-12-04 12:23 | ED ---
General Adult HPI - General Chief complaint: Chest Pain Stated complaint: chest pain, arm pain Time Seen by Provider: 12/04/24 12:22 Source: patient Mode of arrival: ambulatory Limitations: no limitations - History of Present Illness Initial comments: Patient presents to the ED with his caregiver complaining of having right arm and right-sided chest "soreness" yesterday. Patient states that his pain began sometime yesterday morning while at rest and resolved by yesterday evening. Patient denies having any pain or symptoms today. Patient states that he has had similar episodes of chest/arm pain over the past several years. Patient states that he does have a history of CAD, and he has had cardiac stents placed in the past. Patient is currently on Plavix and Xarelto anticoagulation therapy. Patient also admits to having mild associated dizziness yesterday with his pain. Patient denies having any dizziness today. Patient denies having any other associated symptoms. Patient denies trauma or injury, fever or chills, headache, focal numbness/weakness/neurodeficit, neck/jaw/back pain, pleuritic pain, dyspnea, cough or cold symptoms, palpitations, syncope, nausea/vomiting/diaphoresis, abdominal pain, diarrhea, bloody or melanotic stool, or any other symptoms or complaints. - Related Data Home Medications Medication Instructions Recorded Confirmed Tamsulosin [Flomax] 0.4 mg PO DAILY@89907/03/21 09/06/24 Cholecalciferol [Vitamin D3 (25 25 mcg PO DAILY@0900 10/22/21 09/06/24 Mcg = 1000 Iu)] Atorvastatin [Lipitor] 80 mg PO HS@209905/25/24 09/09/24 Docusate [Colace] 100 mg PO BID@09,209905/25/24 09/06/24 Fluconazole [Diflucan] 100 mg PO DAILY@89905/25/24 09/06/24 Gabapentin 600 mg PO TID@0900,1300,209905/25/24 09/06/24 Melatonin 5 mg PO HS@209905/25/24 09/09/24 Omeprazole 20 mg PO DAILY@0600 05/25/24 09/06/24 Previous Rx's Medication Instructions Recorded Clopidogrel [Plavix] 75 mg PO DAILY tab 06/08/24 Dapagliflozin Propanediol [Farxiga] 10 mg PO DAILY tab 06/08/24 Metoprolol Succinate (ER) [Toprol 75 mg PO BID tab 06/08/24 XL] Rivaroxaban [Xarelto] 2.5 mg PO BID tab 06/08/24 Sacubitril/Valsartan [Entresto 24 1 each PO BID tab 06/08/24 mg-26 mg Tablet] Spironolactone [Aldactone] 25 mg PO DAILY tab 06/08/24 Allergies Allergy/AdvReac Type Severity Reaction Status Date / Time No Known Allergies Allergy Verified 12/04/24 12:21 Review of Systems ROS Statement: Those systems with pertinent positive or pertinent negative responses have been documented in the HPI. ROS Other: All systems not noted in ROS Statement are negative. 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 bilateral renal artery stenting, balloon angioplasty of coronary artery, open heart surgery 02/2015-double bypass, Left AKA 2023, Right great toe partial amputation then Rt. AKA Past Anesthesia/Blood Transfusion Reactions: No Reported Reaction Past Psychological History: Anxiety, Depression Smoking Status: Former smoker Past Alcohol Use History: None Reported Past Drug Use History: Marijuana - Past Family History Brother(s) Family Medical History: Myocardial Infarction ([place]) Father Family Medical History: CVA/TIA, Myocardial Infarction ([place]) Additional Family Medical History / Comment(s): ANEURYSM Mother Family Medical History: CVA/TIA, Deep Vein Thrombosis (DVT), Myocardial Infarction ([place]) Sister(s) Family Medical History: Cancer, Myocardial Infarction ([place]) Additional Family Medical History / Comment(s): 3 sisters- [place] General Exam Limitations: no limitations General appearance: alert, in no apparent distress Eye exam: Present: normal appearance ENT exam: Present: mucous membranes moist Neck exam: Present: other (Trachea is in midline) Respiratory exam: Present: normal lung sounds bilaterally. Absent: respiratory distress, wheezes, rales, rhonchi, stridor, chest wall tenderness Cardiovascular Exam: Present: regular rate, normal rhythm, normal heart sounds, other (Normal radial pulses bilaterally) GI/Abdominal exam: Present: soft. Absent: distended, tenderness, guarding Extremities exam: Present: other (No upper extremity swelling or tenderness is noted on exam; patient is status post bilateral lower extremity above-knee amputations) Neurological exam: Present: alert, oriented X3. Absent: motor sensory deficit Psychiatric exam: Present: normal affect Skin exam: Present: warm, dry, normal color Course Vital Signs 12/04/24 12/04/24 12:17 12:42 Temperature 97.9 F Pulse Rate 64 61 Respiratory 18 20 Rate Blood Pressure 118/77 115/80 O2 Sat by Pulse 99 100 Oximetry - Reevaluation(s) Reevaluation #1: 12/04/24 15:00 Patient continues to deny having any chest pain or symptoms while in the ED. 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 Patient remains alert and breathing comfortably. Patient is aware of his test results, and he feels comfortable being discharged home at this time. He was counseled about chest/arm pain and PVCs, and he was clearly explained return and follow-up instructions. He was instructed to follow-up closely with his primary care provider. He feels comfortable with this plan. EKG Findings - EKG Comments: EKG Findings:: ED physician interpretation (interpreted by me): Sinus bradycardia, occasional PVCs, ventricular rate of 59 bpm, normal [place] and QRS intervals, normal QT overall, normal axis, LVH with strain appearance (similar in appearance to 05/25/2024 EKG), no ST elevation Medical Decision Making - Medical Decision Making Was pt. sent in by a medical professional or institution (, PA, BUSINESS SYSTEMS ADMINISTRATOR, urgent care, hospital, or correction...) When possible be specific @ -No Did you speak to anyone other than the patient for history (EMS, parent, family, police, friend...)? What history was obtained from this source @ -No Did you review nursing and triage notes (agree or disagree)? Why? @ -I reviewed and agree with nursing and triage notes Were old charts reviewed (outside hosp., previous admission, EMS record, old EKG, old radiological studies, urgent care reports/EKG's, correction records)? Report findings @ -No old charts were reviewed Differential Diagnosis (chest pain, altered mental status, abdominal pain women, abdominal pain men, vaginal bleeding, weakness, fever, dyspnea, syncope, headache, dizziness, GI bleed, back pain, seizure, CVA, palpatations, mental health, musculoskeletal)? @ -Differential Chest Pain: Stable Angina, Unstable Angina, STEMI, NSTEMI, Pneumothorax, Musculoskeletal, Esophageal Spasm GERD, anxiety, this is not meant to be an all-inclusive list. EKG interpreted by me (3pts min.). @ -As above X-rays interpreted by me (1pt min.). @ -Chest x-ray was reviewed myself and shows no acute cardiopulmonary abnormality. I agree with the radiologist's interpretation as above. CT interpreted by me (1pt min.). @ -None done U/S interpreted by me (1pt. min.). @ -None done What testing was considered but not performed or refused? (CT, X-rays, U/S, labs)? Why? @ -None What meds were considered but not given or refused? Why? @ -None Did you discuss the management of the patient with other professionals (professionals i.e. , PA, BUSINESS SYSTEMS ADMINISTRATOR, lab, RT, psych nurse, social work therapist, heat treating furnace tender, teacher, senior grants officer, case finisher)? Give summary @ -No Was smoking cessation discussed for >3mins.? @ -No Was critical care preformed (if so, how long)? @ -No Were there social determinants of health that impacted care today? How? (Homelessness, low income, unemployed, alcoholism, drug addiction, transportatio n, low edu. Level, literacy, decrease access to med. care, group home, rehab)? @ -No Was there de-escalation of care discussed even if they declined (Discuss DNR or withdrawal of care, Hospice)? DNR status @ -No What co-morbidities impacted this encounter? (DM, HTN, Smoking, COPD, CAD, Cancer, CVA, ARF, Chemo, Hep., AIDS, mental health diagnosis, sleep apnea, morbid obesity)? @ -CAD Was patient admitted / discharged? Hospital course, mention meds given and route, prescriptions, significant lab abnormalities, going to OR and other pertinent info. @ -Patient denies having any chest pain/arm pain or any symptoms at all while in the ED. Patient states that the last time that he experienced any pain was yesterday evening. Patient's troponin is within normal limits. Patient's EKG shows occasional PVCs, but no other new abnormalities when compared to his most recent prior EKG. Patient's labs and chest x-ray are fairly unremarkable. I do not suspect an emergent medical condition at this time. Will discharge patient home at this time with instructions to follow-up closely with his primary care provider. Patient was clearly explained return and follow-up instructions. Patient feels comfortable being discharged home at this time. Patient states that his caregiver will be taking him home today. Undiagnosed new problem with uncertain prognosis? @ -No Drug Therapy requiring intensive monitoring for toxicity (Heparin, Nitro, Insulin, Cardizem)? @ -No Were any procedures done? @ -No Diagnosis/symptom? @ -Right sided chest/arm pain Acute, or Chronic, or Acute on Chronic? @ -Acute, recurrent Uncomplicated (without systemic symptoms) or Complicated (systemic symptoms)? @ -Default Side effects of treatment? @ -No Exacerbation, Progression, or Severe Exacerbation? @ -No Poses a threat to life or bodily function? How? (Chest pain, [place], [place], pneumonia, PE, COPD, DKA, ARF, appy, cholecystitis, CVA, Diverticulitis, Homicidal, Suicidal, threat to staff... and all critical care pts) @ -No - Lab Data Result diagrams: 12/04/24 12:51 12/04/24 12:51 Lab Results 12/04/24 12/04/24 12/04/24 Range/Units 12:51 12:51 12:51 WBC 5.5 (3.8-10.6) k/uL RBC 5.72 (4.30-5.90) m/uL Hgb 15.6 (13.0-17.5) gm/dL Hct 48.0 (39.0-53.0) % MCV 84.0 (80.0-100.0) fL MCH 27.4 (25.0-35.0) pg MCHC 32.6 (31.0-37.0) g/dL RDW 16.5 H (11.5-15.5) % Plt Count 183 (150-450) k/uL MPV 8.1 Neutrophils % 49 % Lymphocytes % 39 % Monocytes % 5 % Eosinophils % 4 % Basophils % 1 % Neutrophils # 2.7 (1.3-7.7) k/uL Lymphocytes # 2.2 (1.0-4.8) k/uL Monocytes # 0.3 (0-1.0) k/uL Eosinophils # 0.2 (0-0.7) k/uL Basophils # 0.0 (0-0.2) k/uL Anisocytosis Slight PT 12.3 (10.0-12.5) sec INR 1.1 (<1.2) APTT 26.3 (22.0-30.0) sec Sodium 139 (137-145) mmol/L Potassium 3.5 (3.5-5.1) mmol/L Chloride 107 (98-107) mmol/L Carbon Dioxide 26 (22-30) mmol/L Anion Gap 6 mmol/L BUN 10 (9-20) mg/dL Creatinine 0.92 (0.66-1.25) mg/dL Est GFR (CKD-EPI)AfAm >90 (>60 ml/min/1.73 sqM) Est GFR (CKD-EPI)NonAf 84 (>60 ml/min/1.73 sqM) Glucose 128 H (74-99) mg/dL Calcium 9.2 (8.4-10.2) mg/dL Magnesium 2.0 (1.6-2.3) mg/dL Total Bilirubin 0.2 (0.2-1.3) mg/dL AST 14 L (17-59) U/L ALT 10 (4-49) U/L Alkaline Phosphatase 75 (38-126) U/L Troponin I (0.000-0.034) ng/mL NT-Pro-B Natriuret Pep 3530 pg/mL Total Protein 6.8 (6.3-8.2) g/dL Albumin 3.6 (3.5-5.0) g/dL 12/04/24 Range/Units 12:51 WBC (3.8-10.6) k/uL RBC (4.30-5.90) m/uL Hgb (13.0-17.5) gm/dL Hct (39.0-53.0) % MCV (80.0-100.0) fL MCH (25.0-35.0) pg MCHC (31.0-37.0) g/dL RDW (11.5-15.5) % Plt Count (150-450) k/uL MPV Neutrophils % % Lymphocytes % % Monocytes % % Eosinophils % % Basophils % % Neutrophils # (1.3-7.7) k/uL Lymphocytes # (1.0-4.8) k/uL Monocytes # (0-1.0) k/uL Eosinophils # (0-0.7) k/uL Basophils # (0-0.2) k/uL Anisocytosis PT (10.0-12.5) sec INR (<1.2) APTT (22.0-30.0) sec Sodium (137-145) mmol/L Potassium (3.5-5.1) mmol/L Chloride (98-107) mmol/L Carbon Dioxide (22-30) mmol/L Anion Gap mmol/L BUN (9-20) mg/dL Creatinine (0.66-1.25) mg/dL Est GFR (CKD-EPI)AfAm (>60 ml/min/1.73 sqM) Est GFR (CKD-EPI)NonAf (>60 ml/min/1.73 sqM) Glucose (74-99) mg/dL Calcium (8.4-10.2) mg/dL Magnesium (1.6-2.3) mg/dL Total Bilirubin (0.2-1.3) mg/dL AST (17-59) U/L ALT (4-49) U/L Alkaline Phosphatase (38-126) U/L Troponin I 0.025 (0.000-0.034) ng/mL NT-Pro-B Natriuret Pep pg/mL Total Protein (6.3-8.2) g/dL Albumin (3.5-5.0) g/dL - Radiology Data Chest x-ray: No acute cardiopulmonary disease with no interval change. Disposition Clinical Impression: Chest pain, PVC's (premature ventricular contractions) Disposition: HOME SELF-CARE Condition: Stable Instructions (If sedation given, give patient instructions): Chest Pain (ED), Premature Ventricular Contractions (ED) Additional Instructions: Return to the ER immediately should you develop new or worsening pain, shortness of breath, a fever, feeling dizzy or faint, vomiting, or new or worsening symptoms. Follow-up closely with your primary care provider. Is patient prescribed a controlled substance at d/c from ED?: No Referrals: Nav Lopez DO [Primary Care Provider] - 1-2 days Time of Disposition: 15:08
[2024-12-04 12:57] LABS: Anisocytosis Slight; Basophils % (A) 1 %; Eosinophils # (A) 0.2 k/uL (0-0.7); Eosinophils % (A) 4 %; HGB 15.6 gm/dL (13.0-17.5); Lymphocytes # (A) 2.2 k/uL (1.0-4.8); Lymphocytes % (A) 39 %; MCH 27.4 pg (25.0-35.0); MCHC 32.6 g/dL (31.0-37.0); Mean Platelet Volume 8.1; Monocytes # (A) 0.3 k/uL (0-1.0); Monocytes % (A) 5 %; Neutrophils # (A) 2.7 k/uL (1.3-7.7); Neutrophils % (A) 49 %; Platelet Count 183 k/uL (150-450); RBC 5.72 m/uL (4.30-5.90); RDW 16.5 % (11.5-15.5); WBC 5.5 k/uL (3.8-10.6)
[2024-12-04 13:06] LABS: INR 1.1 (<1.2); Partial Thromboplastin Time 26.3 sec (22.0-30.0); Prothrombin Time 12.3 sec (10.0-12.5)
--- NOTE | 2024-12-04 13:08 | XR ---
EXAMINATION TYPE: XR chest 1V portable DATE OF EXAM: 12/04/2024 COMPARISON: 09/09/2024 CLINICAL INDICATION: Male, 68 years old with history of chest pain; TECHNIQUE: Single frontal view of the chest is obtained. FINDINGS: The single lead cardiac pacemaker unchanged in position. There is been prior CABG surgery. The lungs are clear. There is no pleural effusion or pneumothorax. Heart and pulmonary vasculature are normal. The osseous structures are intact. IMPRESSION: No acute cardiopulmonary disease with no interval change. [facility], , 12/04/2024 1:06 PM
[2024-12-04 13:09] LABS: ALT 10 U/L (4-49); AST 14 U/L (17-59); African American GFR (CKD) >90 (>60 ml/min/1.73 sqM); Albumin 3.6 g/dL (3.5-5.0); Alkaline Phosphatase 75 U/L (38-126); Anion Gap 6 mmol/L; Blood Urea Nitrogen 10 mg/dL (9-20); Calcium 9.2 mg/dL (8.4-10.2); Carbon Dioxide 26 mmol/L (22-30); Chloride 107 mmol/L (98-107); Glucose 128 mg/dL (74-99); Non-African American GFR(CKD) 84 (>60 ml/min/1.73 sqM); Potassium 3.5 mmol/L (3.5-5.1); Sodium 139 mmol/L (137-145); Total Bilirubin 0.2 mg/dL (0.2-1.3); Total Protein 6.8 g/dL (6.3-8.2)
[2024-12-04 13:18] LABS: NT-Pro-B-Type Natriuretic Pept 3530 pg/mL
[2024-12-04 15:23] VITALS: BP 103/71; PULSE 73; RESP 18; TEMP 98
== END 2024-12-04 15:22 | disposition home or self-care (01) ==
LOC: EC 12:16
DX: I11.9 Hypertensive heart disease without heart failure (principal); I49.3 Ventricular premature depolarization; I25.10 Atherosclerotic heart disease of native coronary artery without angina pectoris; Z87.891 Personal history of nicotine dependence; Z79.01 Long term (current) use of anticoagulants
CPT/HCPCS: 36415; 71045; 80053; 83735; 83880; 84484; 85025; 85610; 85730; 93005; 99285